=== PATIENT | male | born 1945 | race Caucasian/White ===

== ENCOUNTER 2023-10-23 09:00 | Outpatient (REF) | payer MEDICARE, BC, SELFPAY ==
--- OUTSIDE RECORDS SUMMARY | 2023-10-23 09:03 | XMS_ITS | Continuity of Care Document ---
Author Organization [facility] Address [address] [place] [address] Care Team Providers Care Fire Extinguisher Repairer Inspector Name Role Phone Hernesto Nascimento Primary Care Physician Encounter [facility] Date(s): 08/02/22 - 08/02/[address] [address] Discharge Disposition: Home or Self Care Attending Physician: Hernesto Nascimento MD Admitting Physician: Hernesto Nascimento MD Referring Physician: Hernesto Nascimento MD Allergies, Adverse Reactions, Alerts Substance Reaction Severity Status amoxicillin Unknown Active simvastatin Muscle pain Unknown Active atorvastatin Muscle pain Unknown Active cephalosporins Skin rash Severe Active HMG-CoA reductase inhibitors Muscle pain Unknown Active statins Muscle pain Unknown Active Assessment and Plan Future Appointments Immunizations Given and Recorded Vaccine Date Status Refusal Reason SARS-CoV-2 (COVID-19) mRNA-1273 vaccine 01/26/21 R ecorded SARS-CoV-2 (COVID-19) mRNA-1273 vaccine 07/09/20 R ecorded SARS-CoV-2 (COVID-19) mRNA-1273 vaccine 06/12/20 R ecorded influenza virus vaccine, live 01/15/21 Recorded influenza, unspecified formulation 01/16/20 Record ed influenza, unspecified formulation 01/19/18 Record ed influenza, unspecified formulation 01/19/15 Record ed pneumococcal 23-polyvalent vaccine 1 07/23/18 Cristopher rded influenza virus vaccine, inactivated 01/11/16 Cristopher rded influenza virus vaccine, inactivated 02/01/14 Cristopher rded influenza virus vaccine, inactivated 02/02/12 Cristopher rded influenza virus vaccine, inactivated 01/18/11 Cristopher rded influenza virus vaccine, inactivated 03/19/09 Cristopher rded influenza virus vaccine, inactivated 01/07/08 Cristopher rded influenza virus vaccine, inactivated 03/07/06 Cristopher rded influenza virus vaccine, inactivated 03/07/05 Cristopher rded pneumococcal 13-valent conjugate vaccine 01/19/15 Recorded tetanus/diphth/pertuss (Tdap) adult/adol 07/28/09 Recorded 1Result Comment: pt tolerated well. Educational information provided Medications acetaminophen 500 mg oral tablet 0 Refill(s) Start Date: 05/18/22 Status: Ordered aspirin 81 mg oral capsule 0 Refill(s) Start Date: 05/24/22 Status: Ordered carvedilol 12.5 mg oral tablet 12.5 mg = 1 tab, Oral, BID, # 180 tab, 3 Refill(s), Pharmacy: [id number] Start Date: 05/30/22 Status: Ordered Coenzyme Q10 0 Refill(s) Start Date: 05/24/22 Status: Ordered ezetimibe 10 mg oral tablet 10 mg = 1 tab, Oral, Daily, # 90 tab, 3 Refill(s), Pharmacy: [id number] Start Date: 05/30/22 Status: Ordered Golo Release Dietary Supplement Golo Release Dietary Supplement, 0 Refill(s) Start Date: 05/24/22 Status: Ordered Nitrostat 0.4 mg sublingual tablet 0 Refill(s) Start Date: 05/18/22 Status: Ordered Problem List Condition Confirmation Course Effective Dates Status H ealth Status Informant Aortic valve sclerosis Confirmed 12/02/19 Active Atherosclerosis of coronary artery without angina pectoris Confirmed Active Conductive hearing loss Confirmed Active Essential tremor Confirmed Active History of malignant melanoma of the skin Confirmed 05/18/20 Active History of total hip arthroplasty Confirmed Active Hyperlipidemia Confirmed Active Hypertensive disorder Confirmed Active Knee joint prosthesis present Confirmed Active Mixed hyperlipidemia Confirmed Active Primary impotence Confirmed Active Systolic murmur Confirmed 05/18/20 Active Procedures Procedure Date Related Diagnosis Body Site Status Colonoscopy, flexible; with biopsy, single or multiple 01/12/21 Completed Repair of quadriceps tendon (procedure) 04/08/20 Completed Arthroplasty, knee, tibial plateau; 09/21/16 Completed Open treatment of spontaneou s hip dislocation (developmental, including congenital or pathological), replacement of femoral head in acetabulum (including tenotomy, etc); 04/03/16 Completed Balloon angioplasty, intracr anial (eg, atherosclerotic stenosis), percutaneous 07/10/15 Completed Results Laboratory List Name Date Automated Diff 08/02/22 CBC w/ Diff 08/02/22 Comprehensive Metabolic Panel (CMP) Lipid Panel 08/02/22 Most recent to oldest [Reference Range]: 1 WBC [5.0-10.0 x10^3/mcL] 5.2 x10^3/mcL (08/02/22 8:15 AM) RBC [4.6-6.0 x10^6/mcL] 4.6 x10^6/mcL (08/02/22 8:15 AM) Neutro Auto [40.0-75.0 %] 56.3 % (08/02/22 8:15 AM) Lymph Auto [20.0-50.0 %] 29.3 % (08/02/22 8:15 AM) Parmer Auto [2.0-15.0 %] 9.7 % (08/02/22 8:15 AM) Basophil Auto [0.0-1.0 %] 1.2 % *HI* (08/02/22 8:15 AM) BUN [7-18 mg/dL] 20 mg/dL *HI* (08/02/22 8:15 AM) Cholesterol Total [50-200 mg/dL] 223 mg/ dL *HI* (08/02/22 8:15 AM) LDL [0-130 mg/dL] 145 mg/dL *HI* (08/02/22 8:15 AM) Glucose Level [74-106 mg/dL] 108 mg/dL *HI* (08/02/22 8:15 AM) Potassium Level [3.5-5.1 mmol/L] 4.7 mmo l/L (08/02/22 8:15 AM) MCV [80.0-96.0 fL] 97.4 fL *HI* (08/02/22 8:15 AM) HDL [40-60 mg/dL] 54 mg/dL (08/02/22 8:15 AM) AST [15-37 unit/L] 18 unit/L (08/02/22 8:15 AM) ALT [16-63 unit/L] 28 unit/L (08/02/22 8:15 AM) MCHC [31.0-35.0 g/dL] 32.9 g/dL (08/02/22 8:15 AM) Sodium Level [136-145 mmol/L] 136 mmol/L (08/02/22 8:15 AM) Hct [41.0-51.0 %] 44.7 % (08/02/22 8:15 AM) Triglycerides [0-150 mg/dL] 120 mg/dL (08/02/22 8:15 AM) Calcium Level [8.5-10.1 mg/dL] 8.5 mg/dL (08/02/22 8:15 AM) Albumin Level [3.4-5.0 g/dL] 3.7 g/dL (08/02/22 8:15 AM) Protein Total [6.4-8.2 g/dL] 7.3 g/dL (08/02/22 8:15 AM) MCH [26.0-32.0 pg] 32.0 pg (08/02/22 8:15 AM) Neutro Absolute 2.9 x10^3/mcL *NA* (08/02/22 8:15 AM) Bilirubin Total [0.2-1.0 mg/dL] 0.5 mg/d L (08/02/22 8:15 AM) Hgb [14.0-18.0 g/dL] 14.7 g/dL (08/02/22 8:15 AM) Alk Phos [46-146 unit/L] 57 unit/L (08/02/22 8:15 AM) Platelets [130-450 x10^3/mcL] 228 x10^3/ mcL (08/02/22 8:15 AM) CO2 [21-32 mmol/L] 30 mmol/L (08/02/22 8:15 AM) eGFR Non-AA [>=60] 58 *LOW* (08/02/22 8:15 AM) eGFR AA [>=60] 58 *LOW* (08/02/22 8:15 AM) Chloride Level [98-107 mmol/L] 101 mmol/ L (08/02/22 8:15 AM) RDW-CV [11.5-17.0 %] 13.2 % (08/02/22 8:15 AM) Imm Gran Auto [0.0-0.9 %] 0.2 % (08/02/22 8:15 AM) Creatinine Level [0.70-1.30 mg/dL] 1.29 mg/dL (08/02/22 8:15 AM) Eos, Auto [1.0-6.0 %] 3.3 % (08/02/22 8:15 AM) Social History Social History Type Response Tobacco Former tobacco user Tobacco Use:. 1, 2 Sex Male 1started age 15 2quit 2000 Patient Care team information Care Team Personnel Name: Hernesto Nascimento MD Position: Physician Member Role: Primary Care Physician Address: Address: [address] [place] [id number] Care Team Related Persons Name: SANFORD LEO Address: Home [address] [place] [address] Address: Mailing [address] [place], [place] [id number] Name: BALBINA LEO Address: Home [address] [address] Name: BALBINA LEO Address: Home [address] [address] Name: BALTAZAR INGRAM Address: Home [address], [place] [id number] Name: BALTAZAR INGRAM Address: Home [address], [place] [id number]
--- OUTSIDE RECORDS SUMMARY | 2023-10-23 09:03 | XMS_ITS | Referral Summary ---
Author Organization [facility] Address [address] [place] [address] Care Team Providers Care Price Accuracy Supervisor Name Role Phone Unknown, Provider Primary Care Provider Social History Tobacco Use Types Packs/Day Years Used Date Smoking Tobacco: Never Assessed Sex and Gender Information Value Date Recorded Sex Assigned at Not on file Gender Identity Not on file Sexual Orientation Not on file Plan of Treatment Not on file Care Teams Price Accuracy Supervisor Relationship Specialty Start Date End Date Unknown, Provider, PCP - General 01/01/21
--- OUTSIDE RECORDS SUMMARY | 2023-10-23 09:03 | XMS_ITS | Encounter Summary ---
[place] [address] Care Team Providers Care Wafer Slicer Name Role Phone Phoenix Guzmán Primary Care Provider [phone] Reason for Visit * Reason Comments Skin Check Encounter Details Date Type Department Care Team (Late st Contact Info) Description 07/19/2022 9:30 AM EDT Office Visit Dermatology at [facility] [address] [place] [address] Dawson Bolton MD [facility] [address] [facility] [place] [address] History of melanoma; History of dysplastic nevus; Seborrheic keratosis; Seborrheic keratosis, inflamed Social History Tobacco Use Types Packs/Day Years Used Date Smoking Tobacco: Former Cigarettes Q uit: 01/11/2001 Smokeless Tobacco: Never Alcohol Use Standard Drinks/Week Comments Yes 5 (1 standard drink = 0.6 oz pur e alcohol) Sex and Gender Information Value Date Recorded Sex Assigned at Not on file Gender Identity Not on file Sexual Orientation Not on file documented as of this encounter Progress Notes * Sandra Morin, CCMA - 07/19/2022 9:30 AM EDT Images from the original note were not included. DEPARTMENT OF DERMATOLOGY Medical D[facility]at[facility] Provider: DAWSON BOLTON MD Patient's preferred name Artemio Maher Preferred contact method for results []??myDH []??Letter []??Phone: home Detailed phone message OK? yes Are there any other people with whom we may discuss your care? - Sussy ?? PAST MEDICAL HISTORY If no, type N. 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 eczema, psoriasis, birthmarks, immunosuppression) ?? FAMILY HISTORY If yes, details Melanoma no NMSC no Other relevant family history no SOCIAL HISTORY Occupation: retired Hobbies: Other: ?? PRE-PROCEDURE SCREENING If no, type N. If yes, include details below Allergy to lidocaine, epinephrine, Dermabond, chlorhexidine, or adhesives: no Bleeding disorder or blood thinners: ASA 81 Pacemaker, defibrillator, deep brain stimulator, cochlear implant: no ?? History of Present Illness: Gunnar Morin is a 77 y.o. Patient returns to clinic today for a fullskin exam, the patient states the following concerns: - Right upper back, present for 3-4 months, asymptomatic - Itchy lesion on the left flank - no melanoma or melanoma in-situ remaining on the penis, Wood lamp examination today, very happy. Last visit at Dermatology: 01/25/2022 Last visit with this provider: 01/25/2022 Medications: Reviewed in eD-H Allergies: Reviewed in eD-H Skin Examination: Full skin examination: Patient asked to undress to their comfort level. Verbalized that the provider's preference is that patient remove all clothing and that the provider will not examine areas patient elects to keep covered. Examination of the scalp, hair, head, face, ears, neck, chest, axillae, abdomen, back, buttocks, and upper and lower extremities, and genitals was normal with the exceptionof the findings below. Assessment/Plan #.??History of 1.76mm melanoma located on the distal right shaft of penis s/p excision (12/2016) andimiquimod immunotherapy x 12 weeks - Hampton lamp negative - No signs of recurrence - No inguinal lymphadenopathy noted - Continue clinical monitoring ?? #. History of mildly dysplastic nevus s/p shave removal 07/25/2017??- well healed scar on chest - NER - Continue clinical monitoring?? #. Seborrheic Keratoses - Multiple 0.4-1 cm, brown-black papules/plaques with waxy stuck on appearance - Benign. No treatment necessary. - Reassured about benign nature and natural history. #. Irritated Seborrheic Keratosis - Verrucous stuck on papule with surrounding erythema on the leftflank - Benign, but symptomatic. Procedure Note: Procedure: Destruction of lesion(s) with cryotherapy. Number: 1 Location: as above Discussed procedure and expectations including risks (including risk of hypopigmentation) and benefits. Verbal consent obtained. Frozen with LN2, 15-30 second thaw time, TWICE. There were no complications; the patient tolerated the procedure well. Post-procedure expectations and wound care were reviewed. RTC: 1 yr for FSE []Note routed to clerical secretary []Recall placed in scheduling system [x]Appointment scheduled at checkout Scribe attestation: Humaira Spivey LPN has performed the documentation for this encounter in thepresence of and acting as a scribe for DAWSON BOLTON MD. I performed the above scribed service and agree with the accuracy of the documentation in this encounter. Reviewed and signed by: DAWSON BOLTON MD Dermatology [facility] documented in this encounter Plan of Treatment Upcoming Encounters Date Type Department Care Team (Late st Contact Info) Description 10/31/2023 9:15 AM EDT Office Visit Dermatology at [facility] [address] [place] [address] Dawson Bolton MD [facility] [address] [facility]KE [place] [address] 07/23/2024 9:30 AM EDT Office Visit Dermatology at [facility] [address] [place] [id number] Dawson Bolton MD [facility] [address] [facility] [place] [address] documented as of this encounter Visit Diagnoses Diagnosis History of melanoma Personal history of malignant melanoma of skin History of dysplastic nevus Personal history of diseases of skin and subcutaneous tissue Seborrheic keratosis Other seborrheic keratosis Seborrheic keratosis, inflamed Inflamed seborrheic keratosis documented in this encounter Care Teams Wafer Slicer Relationship Specialty Start Date End Date Phoenix Guzmán DO [address] [place] [address] [place] [address] PCP - General General Internal Medicine 02/20/15 documented as of this encounter
--- OUTSIDE RECORDS SUMMARY | 2023-10-23 09:03 | XMS_ITS | Encounter Summary ---
Author Organization [facility] Address [address] [place] [address] Care Team Providers Care Refractory Tile Helper Name Role Phone Unknown, Provider Primary Care Provider Encounter Details Date Type Department Care Team (Late st Contact Info) Description 01/12/2021 Lab Requisition [facility] Pathology & Laboratory Medicine - [facility] [address] [place], [place] [id number] Leroy Lozoya MD [address] [place] [address] [address] [place] [id number] Encounter for other general examination Social History Tobacco Use Types Packs/Day Years Used Date Smoking Tobacco: Never Assessed Sex and Gender Information Value Date Recorded Sex Assigned at Not on file Gender Identity Not on file Sexual Orientation Not on file documented as of this encounter Plan of Treatment Not on file documented as of this encounter Procedures Procedure Name Priority Date/Time Associated Diagnosis Comments SURGICAL PATHOLOGY Today 01/12/2021 9:25 EDT documented in this encounter Results * SURGICAL PATHOLOGY (01/12/2021 9:25 EDT) Note to Patient The following pathology results have been interpreted by your pathologist and may be available to you before your health provider has had the opportunity to review them. Please allow time for your provider to receive these results and explore management options, if applicable. 01/14/2021 11:52 EDT [facility] Final Diagnosis A. COLON, CECUM, POLYPS, BIOPSY: - Tubular adenoma. B. COLON, ASCENDING, POLYP, BIOPSY: - Tubular adenoma. C. COLON, TRANSVERSE, POLYP, BIOPSY: - Colonic mucosa with no significant diagnostic abnormalities. - No definite polyp identified. D. COLON, DESCENDING, POLYP, BIOPSY: - Tubular adenoma. 01/14/2021 11:52 [facility] Attestation By the signature below, the attending physician certifies that they have 1) personally conducted a gross and/or microscopic examination of the described specimen(s), and/or personally interpreted the results of laboratory testing of the described specimen(s), and 2) personally rendered or confirmed the above diagnosis. 01/14/2021 11:52 [facility] at 1152 Clinical History History of colon polyps; colon polyps, diverticulosis 01/14/2021 11:52 [facility] Gross Description A. Received in formalin labelled with proper patient identification (initials F, D) and cecal polyps are 2 myles-brown tissues (0.3 x 0.1 x 0.1 cm and 0.5 x 0.1 x 0.1 cm). The specimen is submitted entirely in A1. B. Received in formalin labelled with proper patient identification (initials F, D) and ascending colon polyp is a single myles-brown tissue (0.2 x 0.1 x 0.1 cm). The specimen is submitted intact in B1. C. Received in formalin labelled with proper patient identification (initials F, D) and transverse colon polyp sessile myles-brown polypoid tissue (0.4 x 0.3 x 0.1 cm). Submitted intact in C1. D. Received in formalin labelled with proper patient identification (initials F, D) and descending colon polyp is a single myles-brown polypoid tissue (0.3 x 0.2 x 0.2 cm). Submitted intact in D1. JACEK FAUSTIN(ASCP) 01/13/2021 8:44 01/14/2021 11:52 [facility] Performing Lab [facility] 01/14/2021 11:52 [facility] Scanned Images 01/14/2021 11:52 [facility] Tissue POLYP OF COLON / Unknown 01/12/2021 9:25 EDT 01/13/2021 7:27 EDT Tissue specimen (specimen) POLYP OF COLON / Unknown 01/12/2021 9:25 EDT 01/13/2021 7:27 EDT Tissue specimen (specimen) POLYP OF COLON / Unknown 01/12/2021 9:25 EDT 01/13/2021 7:27 EDT Tissue specimen (specimen) POLYP OF COLON / Unknown 01/12/2021 9:25 EDT 01/13/2021 7:27 EDT Leroy Lozoya MD PATHOLOGY ORDER ADRI[facility] [address] [place] [address] documented in this encounter Visit Diagnoses Diagnosis Encounter for other general examination documented in this encounter Care Teams Refractory Tile Helper Relationship Specialty Start Date End Date Unknown, Provider, PCP - General 01/01/21 documented as of this encounter
--- OUTSIDE RECORDS SUMMARY | 2023-10-23 09:03 | XMS_ITS | Clinical Summary ---
Author Organization [facility] [place] [address] Care Team Providers Care Cargo Broker Name Role Phone Phoenix Guzmán Primary Care Provider [phone] Allergies Active Allergy Reactions Criticality Noted Date Comments Amoxicillin Trihydrate Hives Medications Medication Sig Dispensed Refills Start Date End Date Status clindamycin (CLEOCIN) 150 mg Capsule See Admin Instructions. Reported on 07/28/2016 04/13/2015 Active nitroGLYcerin (NITROSTAT) 0.4 mg Tablet, Sublingual Place 1 tablet under the tongue every 5 minutes as needed for Chest pain. 90 tablet 12 07/11/2015 Active Additional Information Patient not taking.Reported on 02/20/2020 carvedilol (COREG) 12.5 mg Tablet Take 12.5 mg by mouth 2 times daily (with meals). 4 05/31/2016 Active hydrocortisone 2.5 % Cream Apply topically to the affected areas on the face once daily as needed. 30 g 07/27/2017 Active tacrolimus (PROTOPIC) 0.03 % Ointment Apply nightly to affected areas on face 30 g 07/19/2018 Active Additional Information Patient not taking.Reported on 12/01/2020 ezetimibe (Zetia) 10 mg Tablet 07/11/2019 Active oxyCODONE (Roxicodone) 5 mg Tablet Take 1-2 tablets by mouth every 4 hours as needed for Pain (acute post-op surgical pain). 20 tablet 12/12/2019 Active Additional Information Patient not taking.Reported on 02/20/2020 acetaminophen (Tylenol) 500 mg Tablet Take 2 tablets by mouth every 8 hours. Continue the Tylenol around the clock for 10 days after surgery, (12/21/2019). Then may take if needed per package insert. Do not take more than 3,000 mg of Tylenol in 24 hours. 12/12/2019 Active aspirin EC 81 mg Tablet, Delayed Release (E.C.) Take 1 tablet by mouth 2 times daily. Take with food for 30 days after surgery. Last day = 01/10/2020. 12/12/2019 Active gabapentin (Neurontin) 300 mg Capsule Take 1 capsule by mouth nightly. Take nightly before bed for sleep for 4 weeks after surgery. 30 capsule 12/12/2019 Active Additional Information Patient not taking.Reported on 02/20/2020 naproxen (NAPROSYN) 500 mg Tablet Take 1 tablet by mouth 2 times daily (with meals). Take with food for up to 6 weeks after surgery. 84 tablet 12/12/2019 Active Additional Information Patient not taking.Reported on 06/02/2020 polyethylene glycoL (Miralax) 17 gram Powder in Packet Take 17 g by mouth 2 times daily. 12/12/2019 Active Additional Information Patient not taking.Reported on 02/20/2020 senna-docusate (Pericolace) 8.6-50 mg Tablet Take 2 tablets by mouth 2 times daily. 12/12/2019 Active Additional Information Patient not taking.Reported on 02/20/2020 omeprazole (PriLOSEC) 20 mg Capsule, Delayed Release(E.C.) Take 1 capsule by mouth daily. Take daily while taking naproxen 42 capsule 12/12/2019 Active Additional Information Patient not taking.Reported on 06/02/2020 tacrolimus (Protopic) 0.1 % OintmentIndication s:History of melanoma,Dermatiti s Apply topically to affected areas 1-2 times a day as needed. 30 g 3 01/25/2022 Active clobetasoL (Temovate) 0.05 % CreamIndications:D ermatitis Apply topically to areas of scale and itch neck down twice daily for up to two weeks and take 1 week off, repeat as needed 30 g 01/25/2022 Active Active Problems Problem Noted Date Diagnosed Date S/P L quad tendon/extensor m echanism repair 04/08/20 Dr. 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 09/07/2015 S/P Left total knee arthroplasty (Dr. Rae), ? loose tibial component 09/08/2015 DJD (degenerative joint disease) of knee 016 CAD (coronary artery disease) 07/10/2015 Arthritis of knee 06/21/2015 s/p revision R ELZBIETA with head -liner exchange 06/29/16 (Dr. Rae) with dislocation(12/2016) 05/07/2015 Osteoarthritis of both knees 05/07/2015 Bilateral knee pain 05/07/2015 Resolved Problems Problem Noted Date Diagnosed Date Resolved Date s/p revision to dual-mobilit y R ELZBIETA for recurrent instability 12/01/17 (Dr. Hanna) 11/06/2017 01/01/2018 Anticoagulation management encounter 06/30/2016 07/30/2016 Family History Medical History Relation Comments Cancer Mother Relation Status Comments Father Mother Social History Tobacco Use Types Packs/Day Years Used Date Smoking Tobacco: Former Cigarettes Q uit: 01/11/2001 Smokeless Tobacco: Never Alcohol Use Standard Drinks/Week Comments Yes 5 (1 standard drink = 0.6 oz pur e alcohol) Sex and Gender Information Value Date Recorded Sex Assigned at Not on file Gender Identity Not on file Sexual Orientation Not on file Last Filed Vital Signs Vital Sign Reading Time Taken Comments Blood Pressure 139/83 06/02/2020 10:15 AM EST Pulse 92 06/02/2020 10:15 AM EST Temperature 36.7 ??C (98.1 ??F) 04/08/2020 8:53 AM ES T Respiratory Rate 12 04/08/2020 9:45 AM EST Oxygen Saturation 94% 04/08/2020 9:45 AM EST Inhaled Oxygen Concentration - - Weight 131.1 kg (289 lb) 06/02/2020 10:15 AM EST reportedc Height 182.9 cm (6' 0.01) 06/02/2020 10:[address] reported Body Mass Index 39.18 06/02/2020 10:15 AM EST Plan of Treatment Upcoming Encounters Date Type Department Care Team (Late st Contact Info) Description 10/31/2023 9:15 AM EDT Office Visit Dermatology at [facility] [address] [place] [address] Dawson Broderick MD [facility] [place] [address] 07/23/2024 9:30 AM EDT Office Visit Dermatology at [facility] [address] [place] [address] Dawson Broderick MD [facility] [place] [address] Health Maintenance Due Date Last Done Comments Hepatitis C Screening 1963 Tdap adult 1966 Tetanus vaccine 1966 Zoster vaccine (1 of 2) 1997 Pneumoccocal Vaccine: 65+ (1 of 1 - PCV) 2012 Covid-19 Vaccine (4 - 2022-2 4 season) 2022 01/26/2021, 07/09/2020, 06/12/2020 Influenza (Flu) vaccine (1 o f 1 - Influenza standard series) 12/03/2023 Lipid Screening Discontinued 07/11/2015 Medical Devices Implanted Type Area Boat Driver Device Identifier Shelf Expiration Date Model / Serial / Lot Cement,Bne,Smar tset,Ghv,40g ([id number]) - [id number] Implanted:Qty: 2 on 09/07/2015 by Walter Rae MD at [facility] IMPLANTS Left: Knee DO NOT USE Depuy Heel Builder - 3527 05/31/2017 5450-35-500 / / [id number] [place],Attune,Fe m,Cr,Sz9,Lt ([id number]) (Autoreq) - [id number] Implanted:Qty: 1 on 09/07/2015 by Walter Rae MD at [facility] IMPLANTS Left: Knee DO NOT USE Depuy Heel Builder - 3527 01/31/2025 1504-00-109 / / [id number] Osorio Peres Md l,Dome,41mm ([id number]) (Autoreq) - [id number] Implanted:Qty: 1 on 09/07/2015 by Walter Rae MD at [facility] IMPLANTS Left: Knee DO NOT USE Depuy Heel Builder - 3527 05/03/2020 1518-20-041 / / [id number] Inser,Mercyune,Cr ,Fb,Sz9,5mm (0474944) (Autoreq) - [id number] Implanted:Qty: 1 on 09/07/2015 by Walter Rae MD at [facility] IMPLANTS Left: Knee DO NOT USE Depuy Heel Builder - 3527 06/01/2019 1516-20-905 / / [id number] Tray,Osorio,Fb, Tib,Bse,Sz7 ([id number]) (Autoreq) - [id number] Implanted:Qty: 1 on 09/07/2015 by Walter Rae MD at [facility] IMPLANTS Left: Knee DO NOT USE Depuy Heel Builder - 3527 07/31/2025 1506-00-007 / / [id number] Head,Srm,Mtl,+0 mm,36mm ([id number]) (Autoreq) - [id number] Implanted:Qty: 1 on 06/29/2016 by Walter Rae MD at [facility] IMPLANTS Right: Hip DO NOT USE Depuy Heel Builder - 3527 02/01/2020 1365-31-000 / / [id number] Bone,Crushed,Ca ncellous,10cc ([id number]) - [id number] Implanted:Qty: 1 on 06/29/2016 by Walter Rae MD at [facility] IMPLANTS Right: Hip [facility] - [id number] 04/25/2021 PCAN10 / / [id number] Graft,Ostb,Opm, Putty,10ml (6392763) - [id number] Implanted:Qty: 1 on 06/29/2016 by Walter Rae MD at [facility] IMPLANTS Right: Hip [facility] - [id number] 12/16/2018 TPUT10 / / [id number] Ring,Duraloc,Dy namic,Hip,58mm (0116971) (Autoreq) - [id number] Implanted:Qty: 1 on 06/29/2016 by Walter Rae MD at [facility] IMPLANTS Right: Hip DO NOT USE Depuy Heel Builder - 3527 05/31/2025 1249-58-000 / / [id number] Liner,Dura,Mrth ,+4,10d,31i32yz (1139908) - [id number] Implanted:Qty: 1 on 06/29/2016 by Walter Rae MD at [facility] IMPLANTS Right: Hip DO NOT USE Depuy Heel Builder - 3527 01/01/2020 1220-36-558 / / [id number] Cement,Bne,Smar tset,Ghv,40g (1803010) - [id number] Implanted:Qty: 2 on 09/21/2016 by Walter Rae MD at [facility] IMPLANTS Right: Knee DO NOT USE Depuy Heel Builder - 3527 04/02/2018 5450-35-500 / / [id number] Osorio Peres Md l,Dome,41mm (0486277) (Autoreq) - [id number] Implanted:Qty: 1 on 09/21/2016 by Walter Rae MD at [facility] IMPLANTS Right: Knee DO NOT USE Depuy Heel Builder - 3527 07/01/2021 1518-20-041 / / [id number] Osorio Berry,Fb, Tib,Bse,Sz7 (2637579) (Autoreq) - [id number] Implanted:Qty: 1 on 09/21/2016 by Walter Rae MD at [facility] IMPLANTS Right: Knee DO NOT USE Depuy Heel Builder - 3527 07/01/2026 1506-00-007 / / [id number] Inser,Attune,Cr ,Fb,Sz9,5mm (8179710) (Autoreq) - [id number] Implanted:Qty: 1 on 09/21/2016 by Walter Rae MD at [facility] IMPLANTS Right: Knee DO NOT USE Depuy Heel Builder - 3527 03/02/2021 1516-20-905 / / [id number] [place],Attune,Fe m,Cr,Sz9,Rt (1635591) (Autoreq) - [id number] Implanted:Qty: 1 on 09/21/2016 by Walter Rae MD at [facility] IMPLANTS Right: Knee DO NOT USE Depuy Heel Builder - 3527 04/02/2026 1504-00-209 / / [id number] Screw,Trilogy,H ip,6.5x40mm (3900741) - [id number] Implanted:Qty: 1 on 12/01/2017 by Italo Hanna MD at [facility] IMPLANTS Right: Hip [employer]AN [employer] - JUAN BIO 09/01/2027-625-065 -40 / / [id number] Screw,Trilogy,H ip,6.5x40mm (1446191) - [id number] Implanted:Qty: 1 on 12/01/2017 by Italo Hanna MD at [facility] IMPLANTS Right: Hip [employer] - [employer]IO 09/01/2027-6249-065 -40 / / [id number] Screw,Trilogy,H ip,6.5x20mm (2020993) - [id number] Implanted:Qty: 1 on 12/01/2017 by Italo Hanna MD at [facility] IMPLANTS Right: Hip [employer] - [employer]IO 08/01/2027-6250-065 -20 / / [id number] Bone,Crushed,Ca ncellous,30cc (1049708) (Autoreq) - [id number] Implanted:Qty: 1 on 12/01/2017 by Italo Hanna MD at [facility] IMPLANTS Right: Hip [facility] 09/12/2022 PCAN30 / / [id number] Screw,Trilogy,H ip,6.5x25mm (1789012) - [id number] Implanted:Qty: 1 on 12/01/2017 by Italo Hanna MD at [facility] IMPLANTS Right: Hip J[employer]AN [employer] - J[employer]AN BIO 09/01/2027 00-6250-065 -25 / / [id number] Screw,Acetb,G7, 6.5x45mm (8128965) - [id number] Implanted:Qty: 1 on 12/01/2017 by Italo Hanna MD at [facility] IMPLANTS Right: Hip J[employer]AN [employer] - JUAN BIO 03/03/2027 [id number] / / [id number] Head,Srm,Fem,Co cr,28mm+6 (2504320) (Autoreq) - [id number] Implanted:Qty: 1 on 12/01/2017 by Italo Hanna MD at [facility] IMPLANTS Right: Hip [facility] 10/31/2021 52-9 / / [id number] Active Articulation Hip System Dual Mobility Bearing E1 Antioxidant Infused Implanted:Qty: 1 on 12/01/2017 by Italo Hanna MD at [facility] IMPLANTS Right: Hip 10/08/2021 EP-[id number] / / [id number] G7 Acetabular System Dual Mobility Acetabular Liner Neutral Implanted:Qty: 1 on 12/01/2017 by Italo Hanna MD at [facility] IMPLANTS Right: Hip 06/16/2027 [id number] / / [id number] G7 [place] Acetabular Shell, Multi Hole, [place], Cementless Implanted:Qty: 1 on 12/01/2017 by Italo Hanna MD at [facility] IMPLANTS Right: Hip 01/24/2027 [id number] / / [id number] Cemen,Genta,Vis c,Med (0093079) (Autoreq) - [id number] Implanted:Qty: 1 on 12/11/2019 by Roverto Bliss MD at [facility] IMPLANTS Left: Knee [facility] [id number] 01/31/2021 5450-50-501 / / [id number] Stem,Atun,Pfit, Str,73n80aq (7597861) (Autoreq) - [id number] Implanted:Qty: 1 on 12/11/2019 by Roverto Bliss MD at [facility] IMPLANTS Left: Knee [facility] [id number] 01/31/2029 1513-16-060 / / [id number] Base,Atun,Rev,T ib,Niko,Sz7 (3148889) (Autoreq) - [id number] Implanted:Qty: 1 on 12/11/2019 by Roverto Bliss MD at [facility] IMPLANTS Left: Knee [facility] [id number] 09/01/2027 [id number] / / [id number] Sleev,Atun,Full -Por,M-L,45mm (6460351) (Autoreq) - [id number] Implanted:Qty: 1 on 12/11/2019 by Roverto Bliss MD at [facility] IMPLANTS Left: Knee [employer] - TALHA OSKAR [id number] 03/02/2028 [id number] / / [id number] Inser,Attune,Cr ,Rp,Sz9,14mm (0545208) (Autoreq) - [id number] Implanted:Qty: 1 on 12/11/2019 by Roverto Bliss MD at [facility] IMPLANTS Left: Knee [employer]HA [employer] - TALHA OSKAR [id number] 07/31/2024 1516-30-914 / / [id number] Procedures Procedure Name Priority Date/Time Associated Diagnosis Comments LIPID PANEL (REFLEX DIRECT LDL) Routine 07/11/2015 4:35 AM EDT from Last 3 Months or Most Recently Relevant to Health Maintenance Results * (ABNORMAL) Lipid panel (fasting) (07/11/2015 4:35 AM EDT) Chol, Total 200(H) <=199 mg/dL [facility] Comment: Recommendations of the NCEP Adult Treatment Panel for the following risk cutoff thresholds for the [place] population: Desirable: <200 mg/dL Borderline High: 200-239 mg/dL High: > or = 240 mg/dL Triglycerides 175(H) <=149 mg/dL [facility] Comment: Reference Range: Normal triglycerides: ??<150 mg/dL Borderline high: ??150-199 mg/dL High: ??200-499 mg/dL Very high: ??>on=222 mg/dL AISLINN 2001; 285(19):8139-6152 HDL 39(L) >=40 mg/dL [facility] Comment: Reference range: ??Low HDL: ?? < 40 mg/dL ??Normal: ?40-60 mg/dL ??Desirable: > 60 mg/dL AISLINN 2001; 285(19):4528-2622 LDL Cholesterol 126(H) <=99 mg/dL [facility] Comment: Reference range: ?? Optimal: ?<100 mg/dL ?? Near Optimal/Above Optimal: ?? 100-129 mg/dL ?? Borderline high: ?130-159 mg/dL ?? High: ? 160-189 mg/dL ?? Very high: ?>di=427 mg/dL AISLINN 2001: 285(19):7146-4230 Chol/HDL Ratio 5.1 ratio [facility] Comment: A Cholesterol to HDL ratio below 4:1 is desirable. ??Studies suggest that increased CAD risk occurs at ratios above 5 for females and above 6 for men. ? [place] Heart Association ??(http://www.americanheart.org) ? Rehana Int Med, 1994; 121:641 ? AM J Med, 1998; 105(1A):48S Blood specimen (specimen) 07/11/2015 4:35 AM EDT 07/11/2015 4:42 AM EDT Narrative Resulting Agency Comment Spec In Lab Avi Martinez MD CHEMISTRY ORDERABLES [facility] [place] [address] from Last 3 Months or Most Recently Relevant to Health Maintenance Advance Directives Documents on File Type Date Recorded Patient Television News Anchor Expl anation Personal Television News Anchor 12/23/2019 9:24 AM Sussy Morin Advance Directives and Living Will 11/09/2017 11:53 AM DNR/COLST 09/15/2017 Advance Directives and Living Will 06/25/2015 1:27 PM * Attempt Cardiopulmonary Resuscitation - Inpatient (Latest Code Status on File) Date Activated Date Inactivated Comments 04/08/2020 7:01 AM 04/08/2020 12:12 PM Question Answer Comments Code Status decision made by: Patient * Attempt Cardiopulmonary Resuscitation - Inpatient Date Activated Date Inactivated Comments 12/11/2019 4:57 PM 12/12/2019 4:48 PM Question Answer Comments Code Status decision made by: Patient * Full Code Date Activated Date Inactivated Comments 12/01/2017 2:07 PM 12/02/2017 6:13 PM Question Answer Comments Does patient have capacity to make decision: Yes * Full Code Date Activated Date Inactivated Comments 01/19/2017 3:00 PM 01/19/2017 7:49 PM Question Answer Comments Does patient have capacity to make decision: Yes * Full Code Date Activated Date Inactivated Comments 09/21/2016 12:33 PM 09/22/2016 6:06 PM Question Answer Comments Does patient have capacity to make decision: Yes Healthcare Agents on File Name Relationship Healthcare Agent Relationship Communication Sussy Morin Spouse Health Care Agent Flory Ralph Child First Alternate Health Care Agent Care Teams Cargo Broker Relationship Specialty Start Date End Date Phoenix Guzmán DO [address] [place] [address] [place] [address] PCP - General General Internal Medicine 02/20/15
--- OUTSIDE RECORDS SUMMARY | 2023-10-23 09:03 | XMS_ITS | Clinical Summary ---
Author Organization [facility] Address [address] [place] [address] Care Team Providers Care Table Games Manager Name Role Phone Unknown, Provider Primary Care Provider Social History Tobacco Use Types Packs/Day Years Used Date Smoking Tobacco: Never Assessed Sex and Gender Information Value Date Recorded Sex Assigned at Not on file Gender Identity Not on file Sexual Orientation Not on file Plan of Treatment Health Maintenance Due Date Last Done Comments Hepatitis C Screen 1945 RSV Immunization ( o r 60+ Years) (1 - 1-dose 60+ series) 2007 Fall Risk Screening 2012 COVID-19 Vaccine ( season) 2022 Care Teams Table Games Manager Relationship Specialty Start Date End Date Unknown, Provider, PCP - General 01/01/21
--- OUTSIDE RECORDS SUMMARY | 2023-10-23 09:03 | XMS_ITS | Continuity of Care Document ---
Author Organization [facility] Address [address] [place] [address] Care Team Providers Care Doors Prefitter Name Role Phone Hernesto Nascimento Primary Care Physician Encounter [facility] Date(s): 10/19/22 - 10/19/22 [facility] [address] [place] [address] Allergies, Adverse Reactions, Alerts Substance Reaction Severity [...] BID, # 180 tab, 3 Refill(s), Pharmacy: [id number] Start Date: 05/30/22 Status: Ordered Coenzyme Q10 0 Refill(s) Start Date: 05/24/22 Status: Ordered ezetimibe 10 mg oral tablet 10 mg = 1 tab, Oral, Daily, # 90 tab, 3 Refill(s), Pharmacy: [id number] Start Date: 05/30/22 Status: Ordered Golo [...] anial (eg, atherosclerotic stenosis), percutaneous 07/10/15 Completed Social History Social History Type Response Tobacco Former tobacco user Tobacco Use:. 1, 2 Sex Male 1started age 15 2quit 2000 Patient Care team information Care Team Personnel Name: Hernesto Nascimento MD Position: Physician Member Role: Primary Care Physician Address: Address: [address] [place] [address] Care Team Related Persons Name: SANFORD LEO Address: Home [address] [place] [address] Address: Mailing [address] [place] [phone] Name: BALBINA LEO Address: [address] [address] Name: BALBINA LEO Address: Home [address] [address] Name: BALTAZAR INGRAM Address: Home [address] [place], [place] [id number] Name: BALTAZAR INGRAM Address: Home [address] [place], [place] [id number]
--- OUTSIDE RECORDS SUMMARY | 2023-10-23 09:03 | XMS_ITS | Encounter Summary ---
Author Organization [facility] [place] [address] Care Team Providers Care Product Support Representative Name Role Phone Phoenix Guzmán DO Primary Care Provider [phone] Encounter Details Date Type Department Care Team (Latest Contact Info) Description 07/19/2022 Travel Social History Tobacco Use Types Packs/Day Years [...] as of this encounter Plan of Treatment Upcoming Encounters Date Type Department Care Team (Late st Contact Info) Description 10/31/2023 9:15 AM EDT Office Visit Dermatology at [facility] [address] [place] [address] Dawson Broderick MD [facility] [address] [place] [address] 07/23/2024 9:30 AM EDT Office Visit Dermatology at [facility] [address] [place] [address] Dawson Broderick MD [facility] [address] [place] [address] documented as of this encounter Visit Diagnoses Not on filedocumented in this encounter Care Teams Product Support Representative Relationship Specialty Start Date End Date Phoenix Guzmán DO [address] [place] [address] [place] [phone] PCP - General General Internal Medicine 02/20/15 documented as of this encounter
--- OUTSIDE RECORDS SUMMARY | 2023-10-23 09:03 | XMS_ITS | Data Portability ---
Author Organization [place] [facility], [facility] Address [address] [place] [address] Assessment Encounter Date Assessment Date Assessment LastModified by Organization Details LastModified Time 10/23/2023 10/23/2023 The total time devoted to today's encounter, including both the afkj-fq-qkmp time with the patient and/or family/caregi luh and ucr-cjbj-jg-f nilo time I personally spent is 30 minutes. [email or web address] Not available 10/23/2023 08:33:30 Plan of Treatment Reminders Order Date Submit Date Provider Last Modified By Organization Details Last Modified Time Details Appointments Annual Wellness Exam 40 2023 08:00A M SHERRELL CHUTE Not available Not available Not available Lab CMP, serum or plasma 2023 024 [facility] (Registration ), [address] [place] [address] [place], [address], 10/23/2023 08:35:21 lipid panel, serum 2023 024 [facility] (Registration ), [address] [place] [address] [place], [address], 10/23/2023 08:50:31 Referral None recorded. Procedures None recorded. Surgeries None recorded. Imaging None recorded. Medication Orders None recorded. Patient TargetsNo targets recorded. Patient Instructions Encounter Date Encounter Id Patient Instructions Last Modified By Organization Details Last Modified Time 10/23/2023 [id number] Check to see if you have had a tetanus booster at [place]. Continue current medications, good luck with a little bit of weight loss now that your ankle is better. COVID /Flu vaccine this fall I will wait for results of your colonoscopy Follow up yearly, ECHO for your murmur next year I will send you a letter with the results of your lab work mary Not available 10/23/2023 08:19:22 Reason for Referral None Reported. Results Created Date Observation Date Name Description Value Unit Range Abnormal Flag LastModifiedBy Organization Detail LastModifiedTime 09/29/19 24 09/29/2023 XR, ankle , 3 or more view EXAM: RIGHT ANKLE RIS EXAM DATE/T CHERYL: 2023 10:03 INDICA TION: Follow -up fractu re Examin ation compar ed with previo us study of 06 September 2023. Spiral fractu re distal fibula r shaft with slight displa cement again noted and unchan ged in alignm ent. Mild interv al callus format ion but fractu re line remain s readil y visibl e. No other fractu re or sublux ation noted. Ankle mortis e intact . No joint effusi on seen. Modera te latera l soft tissue swelli ng again seen. Promin ent Stieda proces s of the talus. Calcan eal spurs again noted. THIS IS AN ELECTR ONICAL LY VERIFI ED REPORT 024 3:51 PM: Lawrence [address] [place] [address] , [place], [address], 10/02/2023 07:45:29 Result Notes None recorded. Problems Name Status Onset Date Resolution Date Notes Provider Name and Address Organization Details Recorded Time Mixed hyperlipidemia Active 2022 Problem Code: E78.2; Problem Code Type: ICD-10; Not Available [facility] 3 05:34:46 Hyperlipidemia Active 202210/20/2022 - Comments only - Sherrell Herrera [employer] DES[employer] - Cholesterol greatly improved with significant weight loss. Gunnar has statin intolerance, feels terrible. Did discuss repatha as a possibility but as he continues to work on weight loss and diet changes will hold off for now. Problem Code: E78.5; Problem Code Type: ICD-10; Not Available [facility] 3 05:34:46 Erectile dysfunction Active 2022 Problem Code: N52.9; Problem Code Type: ICD-10; Not Available [facility] 3 05:34:46 Essential tremor Active 2022 Problem Code: G25.0; Problem Code Type: ICD-10; Not Available [facility] 3 05:34:46 Conductive hearing loss Active 2022 Problem Code: H90.2; Problem Code Type: ICD-10; Not Available [facility] 3 05:34:46 Essential hypertension Active 202210/20/2022 - Comments only - Sherrell Chute [employer]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 Follows with dermatology yearly and prn Problem Code: Z85.820; Problem Code Type: ICD-10; Not Available [facility] 3 05:34:47 Hip joint prosthesis present Active 2022 Problem Code: Z96.649; Problem Code Type: ICD-10; Not Available [facility] 3 05:34:47 Knee joint prosthesis present Active 2022 Problem Code: Z96.659; Problem Code Type: ICD-10; Not Available [facility] 3 05:34:47 Atherosclerosis of coronary artery without angina pectoris Active 2022 Problem Code: I25.10; Problem Code Type: ICD-10; Not Available [facility] 3 05:34:47 Obesity Active 202210/20/2022 - Comments only - Sherrell Herrera [employer]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 Has lost 32 pounds in the past 5 months taking a pill called GoLo Release which helps with insulin resistance. He can't tell me what is in the pill but will try to send the ingriedients to the portal. He is also working on eating a healthy diet, is active every day Problem Code: E66.9; Problem Code Type: ICD-10; Not Available [facility] 3 05:34:47 Aortic stenosis, non-rheumatic Active 2022 Problem Code: I35.0; Problem Code Type: ICD-10; Not Available [facility] 3 05:34:48 Ascending aorta dilatation Active 2023 SHERRELL HERRERA, [employer] [address], [place], [address] , [facility] 4 08:29:10 Problem Notes None recorded. Procedures Surgical History None recorded. Imaging Results Imaging Date Name Status LastModified by Organiz ation Details LastModified Time 09/29/2023 XR, ankle, 3 or more view completed [address], [place], [address], 10/02/2023 07:45:29 Procedure Notes None recorded. Medical Equipment None Reported. Allergies Allergen ID Allergen Name Allergen Category Reaction Reaction Severity Criticality Documentation Date Start Date Code Code System Note Provider Name and Address Organization Details Recorded Time 32990 amoxicill in trihydrat e medicatio n Not available Not available Not available 02/10/20232022 19113 8 RxNorm Aller gyCod e: '3081 82'; Aller gyNam e: 'AMOX ICILL IN'; Aller gyCon ceptT ype: 'RX Norm' ; Not Available [facility] 3 16:29:41 16651 Medicinal product containin g cephalosp santy and acting as antibacte rial agent (product) medicatio n rash severe Not available 02/10/20232022 09052 9009 SNOMED Not Available [facility] 3 16:29:41 Medications Name Sig Start Date Stop Date Status Note LastModified by Organization Details LastModified Time aspirin 81 mg capsule Take 1 capsule by mouth once a day 10/20 completed Not Available Not Available Not Available carvedilo l 12.5 mg tablet TAKE ONE TABLET BY MOUTH TWICE A DAY active Not Available Not Available No t Available clindamyc in HCl 300 mg capsule Take 2 tab by mouth 1 hour before dental cleaning 05/24 completed Dental prescrip tion Not Available Not Available Not Available acetamino phen 500 mg tablet Take 2 tablet by mouth every eight hours as needed active Not Available Not Available No t Available Nitrostat 0.4 mg sublingua l tablet ONE TABLET UNDER TONGUE NEEDED FOR CHEST PAIN EVERY 5 MINUTES MAX DOSE OF 3 TABLETS. CALL 911 AFTER FIRST DOSE 10/28 completed Not Available Not Available Not Available ezetimibe 10 mg tablet TAKE ONE TABLET BY MOUTH EVERY DAY active Not Available Not Available No t Available Vitals Date Recorded Body height Body mass index (BMI) Body weight Oxygen saturation Oxygen saturation in Arterial blood by Pulse oximetry Heart rate Systolic blood pressure Diastolic blood pressure Provider Name and Address Organization Details Last Updated DateTime 4 178.56 cm 39.5 kg/m2 509547. 52 g 95 % 95 % 80 /min 124 mm[Hg] 74 mm[Hg] ERINN COPELAND MA [facility] 4 07:56:08 Social History Question Answer Notes LastModified by Organizat ion Details LastModified Time Tobacco Smoking Status Former Smoker ERINN COPELAND MA null, [facility] 10/23/2023 07:54:07 When Did You Quit Smoking? 16+yearssi ncelastcig arette [email or web address] Information not available 10/23/2023 Would You Say That, In General, Your Health Is Very Good [email or web address] Information not available 10/23/2023 How Often Does Anyone, Including Family, Physically Hurt You? Never [email or web address] Information not available 10/23/2023 How Often Does Anyone, Including Family, Insult Or Talk Down To You? Never [email or web address] Information no t available 10/23/2023 How Often Does Anyone, Including Family, Threaten You With Harm? Never Information not available 10/23/2023 How Often Does Anyone, Including Family, Scream Or Curse At You? Never [email or web address] Information not available 10/23/2023 Within The Past 12 Months, You Worried That Your Food Would Run Out Before You Got Money To Buy More. Never True [email or web address] Information n ot available 10/23/2023 Within The Past 12 Months, The Food You Bought Just Didn't Last And You Didn't Have Money To Get More. Never True [email or web address] Information n ot available 10/23/2023 How Hard Is It For You To Pay For The Very Basics Like Food, Housing, Medical Care, And Heating? Would You Say It Is: Not Hard At All Information not available 10/23/2023 In The Past 12 Months, Has Lack Of Reliable Transportation Kept You From Medical Appointments, Meetings, Work Or From Getting Things Needed For Daily Living? No [email or web address] Information not available 10/23/2023 What Is Your Housing Situation Today? I Have Housing. [email or web address] Information not available 10/23/2023 How Often In The Past Year Have You Used Marijuana (including Smoking, Vaping, Dabbing, Or Edibles)? Never Information not available 10/23/2023 How Often In The Past Year Have You Used Prescription Medications That Were Not Prescribed To You? Never [email or web address] Information n ot available 10/23/2023 How Often In The Past Year Have You Taken Your Own Prescription Medication More Than The Way It Was Prescribed Or For Different Reasons Than Its Intended Purpose? Never [email or web address] Information no t available 10/23/2023 How Often In The Past Year Have You Used Other Drugs (for Example, Heroin, Cocaine, Meth, Salvia, Inhalants)? Never [email or web address] Information not available 10/23/2023 Have You Ever Used IV Drugs? No [email or web address] Information not available 10/23/2023 Date Of Most Recent SBINS 10/23/2023 [email or web address] Information not available 10/23/2023 What Was The Date Of Your Most Recent Tobacco Screening? 10/23/2023 [email or web address] Information not available 10/23/2023 At What Age Did You Start Smoking Tobacco? 15 [email or web address] Information not available 10/23/2023 How Much Tobacco Do You Smoke? 1 PPD [email or web address] Information not available 10/23/2023 Has Tobacco Cessation Counseling Been Provided? No [email or web address] Information not available 10/23/2023 How Many Years Have You Smoked Tobacco? 50 Pt Reports Smoking On And Off [email or web address] Information not available 10/23/2023 Sex: Male Functional Status None recorded. Mental Status None recorded. Family History Relationship Description Onset Age of this Age Resolved Age Notes Father Family history of acute medical disorder Alzheimers disea se Mother Family history of acute medical disorder tumor on spine Mother Family history of malignant neoplasm cancer growth on spine Medical History No medical history recorded. Immunizations Vaccine Type Date Status Provider Name and Address Organization Details Recorded Time Tdap 07/28/2009 completed Not Available [facility] 05:38:50 Pneumococcal Conjugate, unspecified formulation 01/19/2015 completed Not Available [facility] 02/10/2023 05:38:50 zoster, unspecified formulation 11/25/2019 completed Not Available [facility] 02/10/2023 05:38:50 zoster, unspecified formulation 01/27/2020 completed Not Available [facility] 02/10/2023 05:38:50 SARS-COV-2 (COVID-19) vaccine, UNSPECIFIED 06/12/2020 completed Not Available [facility] 02/10/2023 05:38:50 SARS-COV-2 (COVID-19) vaccine, UNSPECIFIED 07/09/2020 completed Not Available [facility] 02/10/2023 05:38:50 SARS-COV-2 (COVID-19) vaccine, UNSPECIFIED 01/17/2022 completed Not Available [facility] 02/10/2023 05:38:50 SARS-COV-2 (COVID-19) vaccine, UNSPECIFIED 03/12/2021 completed Not Available [facility] 02/10/2023 05:38:50 pneumococcal polysaccharide PPV23 07/23/2018 completed Not Available [facility] 2022 05:38:50 influenza, unspecified formulation 01/11/2022 completed Not Available [facility] 02/10/2023 05:38:51 influenza, unspecified formulation 01/13/2020 completed Not Available [facility] 02/10/2023 05:38:51 influenza, unspecified formulation 01/18/2021 completed Not Available [facility] 02/10/2023 05:38:51 Past Encounters Encounter ID Performer Location Encounter Start Date Encounter Closed Date Diagnosis/Indication Diagnosis SNOMED-CT Code [id number] KATHLEEN ARAGON [facility] [address] [place] [address] 10/23/2023 07:41:07 10/23/2023 08:33:47 Obesity 951255166 Heart murmur 51953920 Aortic valve disorder 87 26508 Essential hypertension 78228790 History of malignant melanoma of the skin 461669440810 Hyperlipidemia 06424140 Ascending aorta dilatation 712597114 Health Concerns Section Related Observation LastModified by Organization Detai ls LastModified Time None Recorded Concern Status LastModified by Organization Details LastModified Time None Recorded Advance Directives Directive None Recorded Payers Encounter Date Sequence Insurance Name Policy Number Policy Bruner Covered Member ID Bruner Member ID Guarantor Name 10/23/2023 1 [place]ICARE [place]: [employer] Gunnar Morin [id number] Gunnar Morin 10/23/2023 2 [place] [facility] [id number] Gunnar Morin [id number] Gunnar Morin Notes Date Note Type Note Provider Name and Address Organization Details Recorded Time 10/23/2023 text/html HPI Notes: cc fo llow up chronic issues. Murmur, Aortic stenosis, Hyperlipidemia, Melanoma, HTN, Dilated aorta at 4.2 cm Aortic stenosis - mildly dilated aorta- last echo 2022, he does not want to repeat this year. Tolerates strenuous activity such as splitting wood with an axe without difficulty. Non chest pain, sob. Walks Fractured right ankle - backed into a whole while mowing, wore a boot for 7 weeks. All improved. Has occasional swelling with increased activity Obesity - weight is stable, only gained two pounds despite being in a boot Hyperlipidemia - continues on Ezetimibe Hx of melanoma - follows with dermatology yearly Colonoscopy scheduled in January in [place] KATHLEEN ARAGON [address], [place], [address], [facility]. 10/23/2023 08:33:45
--- OUTSIDE RECORDS SUMMARY | 2023-10-23 09:03 | XMS_ITS | Continuity of Care Document ---
Author Organization [facility] Address [address] [place] [address] Care Team Providers Care Switchboard Wirer Name Role Phone Hernesto Nascimento Primary Care Physician Encounter NCTY_[place] Date(s): 12/01/22 - 12/01/22 [facility] [address] [place] [address] Discharge Disposition: Home or Self Care Attending Physician: Sherrell Mcdowell NP Admitting Physician: Sherrell Mcdowell NP Referring Physician: Sherrell Mcdowell RECORD PRESSMAN Allergies, Adverse Reactions, Alerts Substance Reaction Severity [...] BID, # 180 tab, 3 Refill(s), Pharmacy: [id number] Start Date: 05/30/22 Status: Ordered Coenzyme Q10 0 Refill(s) Start Date: 05/24/22 Status: Ordered ezetimibe 10 mg oral tablet 10 mg = 1 tab, Oral, Daily, # 90 tab, 3 Refill(s), Pharmacy: [id number] Start Date: 05/30/22 Status: Ordered Golo [...] Member Role: Primary Care Physician Address: Address: [address] [place] [id number] Care Team Related Persons Name: SANFORD LEO Address: Home [address] [place] [address] Address: Mailing [address] [place] [phone] Name: BALBINA LEO Address: Home [address] [address] Name: BALBINA LEO Address: Home [address] [address] Name: BALTAZAR INGRAM Address: Home [address] [facility] [id number] Name: BALTAZAR INGRAM Address: Home [address] [place], [place] [id number]
--- OUTSIDE RECORDS SUMMARY | 2023-10-23 09:03 | XMS_ITS | Continuity of Care Document ---
Author Organization [facility] Address [address] [place] [address] Care Team Providers Care Computer Technical Specialist Name Role Phone Sherrell Mcdowell Primary Care Physician Encounter NCTY_DE Date(s): 08/20/23 - 08/20/[address] [phone] Encounter Diagnosis Right fibular fracture(Discharge Diagnosis) - 08/20/23 Discharge Disposition: Home or Self Care Attending Physician: Edwin Zuluaga MD Admitting Physician: Edwin Zuluaga MD Allergies, Adverse Reactions, Alerts Substance Reaction Severity Status amoxicillin Unknown Active simvastatin Muscle pain Unknown Active atorvastatin Muscle pain Unknown Active cephalosporins Skin rash Severe Active HMG-CoA reductase inhibitors Muscle pain Unknown Active statins Muscle pain Unknown Active Assessment and Plan Extracted from: Title:ED Provider Note Author:Eladio Vallecillo MD Date:08/20/23 Assessment/Plan Right fibular fracture??S82.401A Ordered: ED Visit Follow Up [facility], Orders for future visit, 08/20/23 19:37:00 EDT, Right fibular fracture ?? Orders: Discharge Patient, 08/20/23 19:37:00 EDT, Home Independently, Constant Indicator Splint/Brace Application, Once, Walking Boot Non-Inflatable, Stop date 08/20/23 19:35:00 EDT Patient Education Tibial and Fibular Fractures Cast or Splint Care, Adult, [id number] Follow Up With When Contact Information Hira PETERSON, Lasha Obrien MD Within [address] [place] [address] [address] [place] [address] ?? Additional Instructions: Immunizations Given and Recorded Vaccine Date Status [...] BID, # 180 tab, 3 Refill(s), Pharmacy: [id number] Start Date: 05/30/22 Status: Ordered Coenzyme Q10 0 Refill(s) Start Date: 05/24/22 Status: Ordered ezetimibe 10 mg oral tablet 10 mg = 1 tab, Oral, Daily, # 90 tab, 3 Refill(s), Pharmacy: [id number] Start Date: 05/30/22 Status: Ordered Golo Release Dietary Supplement Golo Release Dietary Supplement, 0 Refill(s) Start Date: 05/24/22 Status: Ordered Nitrostat 0.4 mg sublingual tablet 0 Refill(s) Start Date: 05/18/22 Status: Ordered Mental Status 08/20/23 Eye Opening Response [place] Spontaneous ly Best Verbal Response Syed Oriented Best Motor Response Syed Obeys comman ds Syed Coma Score 15 Problem List Condition Confirmation Course Effective Dates [...] anial (eg, atherosclerotic stenosis), percutaneous 07/10/15 Completed Vital Signs Most recent to oldest [Reference Range]: 1 Temperature Temporal Artery [36-38 Deg C ] 36.7 Deg C (08/20/23 6:57 PM) Heart Rate Monitored [60-100 bpm] 88 bpm (08/20/23 6:57 PM) Respiratory Rate [12-24 br/min] 18 br/mi n (08/20/23 6:57 PM) Blood Pressure [90-140/60-90 mmHg] 141/6 5mmHg *HI* (08/20/23 6:57 PM) Mean Arterial Pressure, Cuff [65-140 mmH g] 90 mmHg (08/20/23 6:57 PM) Weight 129 kg (08/20/23 6:57 PM) Weight Dosing 129.000 kg (08/20/23 6:57 PM) Height 178 cm (08/20/23 6:57 PM) Body Mass Index 40.71 kg/m2 (08/20/23 6:57 PM) Social History Social History Type Response Tobacco Former tobacco user Tobacco Use:. Sex Male Hospital Discharge Instructions Patient Education 08/20/2023 18:39:40 Tibial and Fibular Fractures Tibial and Fibular Fractures Tibial and fibular fractures are breaks in both of the lower leg bones (tibia and fibula). The tibia, also called the jernigan bone, is the larger of these two bones. The fibula is the smaller of the twobones and is on the outer side of the leg. When tibiofibular fractures happen, the bones may: ??? Break, but stay close to their normal position (stable or nondisplaced fracture). ??? Break and move out of their normal position (unstable or displaced fracture). ??? Break into several small pieces (comminuted fracture). ??? Break through the skin (compound or open fracture). What are the causes? This condition is caused by injuries, such as: ??? Falls from significant heights or falls while cycling. ??? Sports contact injuries, like collisions in football or soccer. ??? Severe, forceful twisting of your leg, such as falls while skiing. ??? Car or motorcycle crashes. What increases the risk? You are more likely to develop this condition if: ??? You participate in sports, especially contact sports or sports that may involve impact or twisting, like football or skiing. ??? You smoke. What are the signs or symptoms? Symptoms of this condition include: ??? Pain, swelling, and bruising in the lower leg, ankle, or knee. ??? Difficulty walking or putting weight on your injured leg. ??? Change in the shape of your leg at the site of the injury. ??? Pain that gets worse with moving or standing and gets better with rest. How is this diagnosed? This condition is diagnosed with a physical exam and X-rays. In some cases, a CT scan may be done to help diagnose certain types of fractures. How is this treated? Treatment for this condition depends on the type and severity of your fractures. ??? If your bones did not move out of place and your leg is still stable, or if you are unable to have surgery, you may be treated with a cast, brace, or walking boot. This keeps the bones in place (immobile) while they heal. ??? If your bones are out of place or if your leg is unstable, you may need surgery. Surgery is common for tibial and fibular fractures. During surgery, the bones are moved back into their normal position, and a mandeep, plate, or screws are used to hold the bones in place. After surgery, the leg is put in a splint or cast. Treatment may also include: ??? Medicine, ice, and elevation of the leg to help relieve pain and inflammation. ??? Using crutches or a walker while you heal. ??? Exercises to strengthen leg and ankle muscles and restore motion (physical therapy). Follow these instructions at home: If you have a splint, brace, or walking boot: ??? Wear it as told by your health care provider. Remove it only as told by your health care provider. Some types of splints can only be removed by your health care provider. ??? Loosen it if your toes tingle, become numb, or turn cold and blue. ??? Keep it clean and dry. If you have a cast: ??? Do not stick anything inside the cast to scratch your skin. Doing that increases your risk of infection. ??? Check the skin around the cast every day. Tell your health care provider about any concerns. ??? You may put lotion on dry skin around the edges of the cast. Do not put lotion on the skin underneath the cast. ??? Keep it clean and dry. Bathing ??? Do not take baths, swim, or use a hot tub until your health care provider approves. Ask your health care provider if you may take showers. You may only be allowed to take sponge baths. ??? If the cast, splint, brace, or boot is not waterproof: ??? Do not let it get wet. ??? Cover it with a watertight covering when you take a bath or a shower. Managing pain, stiffness, and swelling ??? If directed, put ice on the injured area. To do this: ??? If you have a removable splint, brace, or boot, remove it as told by your health care provider. ??? Put ice in a plastic bag. ??? Place a towel between your skin and the bag or between your splint or cast and the bag. ??? Leave the ice on for 20 minutes, 2???3 times a day. ??? Remove the ice if your skin turns bright red. This is very important. If you cannot feel pain, heat, or cold, you have a greater risk of damage to the area. ??? Move your toes often to reduce stiffness and swelling. ??? Raise (elevate) the injured area above the level of your heart while you are sitting or lying down. Activity ??? Return to your normal activities as told by your health care provider. Ask your health care provider what activities are safe for you. ??? Do exercises as told by your health care provider. ??? Do not use the injured limb to support your body weight until your health care provider says that you can. Use crutches or a walker as told by your health care provider. Driving ??? Ask your health care provider when it is safe to drive if you have a cast, splint, brace, or walking boot on your leg. ??? Ask your health care provider if the medicine prescribed to you requires you to avoid driving or using machinery. General instructions ??? Do not put pressure on any part of the cast or splint until it is fully hardened. This may takeseveral hours. ??? Do not use any products that contain nicotine or tobacco, such as cigarettes e-cigarettes, and chewing tobacco. These can delay bone healing. If you need help quitting, ask your health care provider. ??? Take yevg-ukk-dxfulzx and prescription medicines only as told by your health care provider. ??? Keep all follow-up visits. This is important. Contact a health care provider if: ??? You have pain that gets worse or does not get better with rest or medicine. ??? You have more swelling or redness in your foot. Get help right away if: ??? Your skin or nails below your injury: ??? Turn blue or walker. ??? Feel cold. ??? Become numb. ??? Become less sensitive to touch. ??? You develop new or severe pain in your leg or foot. ??? You have tingling, burning, and tightness in your lower leg. Summary ??? Tibial and fibular fractures are breaks in both of the lower leg bones (tibia and fibula). ??? If your bones are out of place or if your leg is unstable, you may need surgery. Surgery is common for tibial and fibular fractures. ??? If directed, put ice on the injured area for 20 minutes, 2???3 times a day. ??? Pain medicine and elevating your injured leg will help control pain and reduce swelling. Followdirections as told by your health care provider. This information is not intended to replace advice given to you by your health care provider. Make sure you discuss any questions you have with your health care provider. Document Revised: 08/05/2020 Document Reviewed: 08/05/2020 Incoming Media Patient Education ?? 2022 [employer]go. 08/20/2023 18:39:25 Cast or Splint Care, Adult, [id number] Cast or Splint Care, Adult Casts and splints are supports that are worn to protect broken bones and other injuries. A cast or splint may hold a bone still and in the correct position while it heals. Casts and splints may also help with pain, swelling, and muscle spasms. A cast is a hardened support that is usually made of fiberglass or plaster. It is custom-fit to thebody and offers more protection than a splint. Most casts cannot be taken off and put back on. A splint is a type of soft support that is usually made from cloth and elastic. It can be adjusted or taken off as needed. Often, splints are used on broken bones at first. Later, a cast can replace the splint. What are the risks? In some cases, wearing a cast or splint can make it so that less blood gets to the wrist or hand orto the foot and toes. This can happen if there is a lot of swelling or if the cast or splint is tootight. Limited blood supply can cause a problem called compartment syndrome. This can lead to lasting damage. Symptoms include: ??? Pain that gets worse. ??? Numbness and tingling. ??? Changes in skin color, including paleness or a bluish color. ??? Cold fingers or toes. Other problems from wearing a cast or splint can include: ??? Skin irritation that can cause: ??? Itching. ??? Rash. ??? Skin sores. ??? Skin infection. ??? Limb stiffness or weakness. How to care for a cast or splint that cannot be taken off ??? Do not put pressure on any part of the cast or splint until it is fully hardened. ??? Do not stick anything inside the cast or splint to scratch your skin. ??? Check the skin around the cast or splint every day. Tell your doctor if you see problems. ??? You may put lotion on dry skin around the cast or splint. Do not put lotion on the skin under the cast or splint. ??? Keep the cast or splint clean and dry. How to care for your splint that you can take off ??? Wear the splint as told by your doctor. Take it off only as told by your doctor. ??? Check the skin around it every day. Tell your doctor if you see problems. ??? Loosen it if your fingers or toes: ??? Tingle. ??? Become numb. ??? Turn cold and blue. ??? Keep it clean and dry. Clean your splint as told by your doctor. Use mild soap and water and let it air-dry. Do not use heat on the splint. Follow these instructions at home: Bathing ??? Do not take baths, swim, or use a hot tub until your doctor approves. Ask your doctor if you may take showers. You may only be allowed to take sponge baths. ??? If the cast or splint is not waterproof: ??? Do not let it get wet. ??? Cover it with a watertight covering when you take a bath or a shower. Managing pain, stiffness, and swelling ??? If told, put ice on the affected area. To do this: ??? If you have a cast or splint that can be taken off, take it off as told by your doctor. ??? Put ice in a plastic bag. ??? Place a towel between your skin and the bag or between your cast and the bag. ??? Leave the ice on for 20 minutes, 2???3 times a day. ??? Take off the ice if your skin turns bright red. This is very important. If you cannot feel pain, heat, or cold, you have a greater risk of damage to the area. ??? Move your fingers or toes often. ??? Raise the injured area above the level of your heart while you are sitting or lying down. Safety ??? Do not use your injured leg or foot to support your body weight until your doctor says that youcan. ??? Use crutches or other helpful (assistive) devices as told by your doctor. ??? Ask your doctor when it is safe to drive if you have a cast or splint on part of your body. General instructions ??? Take rjaf-qeu-jatcuyl and prescription medicines only as told by your doctor. ??? Return to your normal activities as told by your doctor. Ask your doctor what activities are safe for you. ??? Keep all follow-up visits. This is important. Contact a doctor if: ??? The skin around the cast or splint gets red or raw. ??? The skin under the cast is very itchy or painful. ??? Your cast or splint: ??? Gets damaged. ??? Feels very uncomfortable. ??? Is too tight or too loose. ??? Your cast becomes wet or it starts to have a soft spot or area. ??? There is a bad smell coming from under your cast. ??? You get an object stuck under your cast. Get help right away if: ??? You get any symptoms of compartment syndrome, such as: ??? Very bad pain or pressure under the cast. ??? Numbness, tingling, coldness, or pale or bluish skin. ??? The part of your body above or below the cast is swollen, and it turns a different color (is discolored). ??? You cannot feel or move your fingers or toes. ??? Your pain gets worse. ??? There is fluid leaking through the cast. ??? You have trouble breathing or shortness of breath. ??? You have chest pain. These symptoms may be an emergency. Get help right away. Call your local emergency services (911 int [place] ??? Do not wait to see if the symptoms will go away. ??? Do not drive yourself to the hospital. Summary ??? Casts and splints are worn to protect broken bones and other injuries. ??? Keep your cast or splint clean and dry. ??? Take off your cast or splint only as told by your doctor. ??? Get help right away if you have very bad pain, numbness, tingling, or skin that turns cold or another color. This information is not intended to replace advice given to you by your health care provider. Make sure you discuss any questions you have with your health care provider. Document Revised: 09/14/2021 Document Reviewed: 09/14/2021 Elsevier Patient Education ?? 2022 CodeNgo. Follow Up Care 08/20/2023 18:54:56 With:Lasha Estevez MD Address: [address] [place] [phone] When:1 week Physician Emergency department Note * Eladio Vallecillo MD: PERFORM Event Display: ED Note Physician Authored Date: [id number] ENRIKE LEO :1945 Age:78 years Sex:Male Visit Date:08/20/2023 Primary Care Physician: Sherrell Mcdowell NP Basic Information Time Seen: Eladio Vallecillo MD / 08/20/2023 18:58 Chief Complaint stepped into a hole this afternoon injuring his R leg, states artificial R hip and R knee and it all went to hell History Of Present Illness: 78-year-old male presents because of a right lower leg injury??that happened??earlier this afternoon when walking on hide even ground outside. ??He states that he??slipped slid sideways??and ended uphurting his right side notably the distal fibular area.?? Though he feels that he jammed his??right thigh also that no longer hurts. ??He has been able to??put some weight on it but??started using crutches. ??Denies any head neck chest abdomen??or back injury.?? He has had a prosthetic??right hip and knee. ??The knee and hip joint itself do not hurt at this time. Review of Systems: Per HPI Physical Exam Vitals & Measurements T:??36.7?C ??(Temporal Artery)?? HR:??88??(Monitored)?? RR:??18?? BP:??141/65?? SpO2:??97%?? HT:??178??cm?? WT:??129??kg?? BMI:??40.71?? Pain Score:??8?? General:??alert,??no acute distress. Skin:??warm,??dry. Head:??no??trauma,??normocephalic. Neck: No C-spine tenderness Eye:??normal??conjunctiva, sclera??clear. Cardiovascular:?? ,??normal??peripheral perfusion. Respiratory:?respirations??non-labored. Back: No thoracic or lumbar spine pain ? Extremities:??no??deformity,??right hip thigh and knee on palpation??no anomalies or pain or joint effusion.?? Ankle on the right per se over the malleus there is no outstanding pain.?? Right foot isunremarkable.?? There is some tenderness along the distal fibula laterally where there is no major e cchymotic changes. NeurolOgical:??oriented??x 4, LOC??appropriate for age,??, speech??normal. Psychiatric:??cooperative, affect??appropriate for age,??normal??judgement,??normal??psychiatric thoughts. Medical Decision Making: Patient stable here. ??Appears to have a distal fibula fracture,??clinically did not appear to havea??unstable ankle joint or widening of the mortise.?? I put??an Felipe bandage and we gave him an equalizer boot. ??He already has crutches. ??I told him to follow-up with orthopedics to do touchdown oneal ghtbearing. ??He did not need anything for pain here. ??He was discharged in stable condition ?? Medical Decision-Making: ?? Tests in the radiology section of CPT??: ordered and reviewed -??Yes ?? Review and summarize past medical records -??Yes ?? Independent visualization of images, tracings, or specimens? Yes ?* Final Report * ?? XR Tibia/Fibula Right PROCEDURE INFORMATION:?? Exam: XR Right Tibia and Fibula?? Exam date and time: 08/20/2023 7:31 PM?? Age: 78 years old?? Clinical indication: Injury? TECHNIQUE:?? Imaging protocol: Radiologic exam of the right tibia and fibula.?? Views: 2 views.? COMPARISON:?? No relevant prior studies available.? FINDINGS:?? Bones/joints: Status post right knee arthroplasty. There is minimally?? displaced spiral fracture of the distal fibular metadiaphysis with?? distal extent appearing to be proximal to the tibial plafond. No?? joint dislocation. ??Plantar spur is present. Soft tissues: Lateral soft tissue edema of the distal right lower leg?? and ankle.? IMPRESSION:?? Minimally displaced distal fibular metadiaphyseal fracture.? Report signed by: Lenin Kline On 08/20/2023 ??21:20:29 ?? [1] Procedure No Qualifying Data Assessment/Plan Right fibular fracture??S82.401A Ordered: ED Visit Follow Up [facility], Orders for future visit, 08/20/23 19:37:00 EDT, Right fibular fracture ?? Orders: Discharge Patient, 08/20/23 19:37:00 EDT, Home Independently, Constant Indicator Splint/Brace Application, Once, Walking Boot Non-Inflatable, Stop date 08/20/23 19:35:00 EDT Patient Education Tibial and Fibular Fractures Cast or Splint Care, Adult, Rjyj-uc-Ikar Follow Up With When Contact Information Hira PARSON, Lasha Obrien MD Within [address] [place] [phone] Additional Instructions: Medication Reconciliation Unchanged acetaminophen (acetaminophen 500 mg oral tablet) ?? aspirin (aspirin 81 mg oral capsule) ?? carvedilol (carvedilol 12.5 mg oral tablet)1 tab Oral (given by mouth) 2 times a day. Refills: 3. ?? ezetimibe (ezetimibe 10 mg oral tablet)1 tab Oral (given by mouth) every day. Refills: 3. ?? nitroglycerin (Nitrostat 0.4 mg sublingual tablet) ?? Other Prescription (Golo Release Dietary Supplement) ?? ubiquinone (Coenzyme Q10) Problem List/Past Medical History Ongoing Aortic valve sclerosis Atherosclerosis of coronary artery without angina pectoris Conductive hearing loss Essential tremor History of malignant melanoma of the skin History of total hip arthroplasty Hyperlipidemia Hypertensive disorder Knee joint prosthesis present Mixed hyperlipidemia Morbid obesity Primary impotence Systolic murmur Historical Aortic valve disorder Blood chemistry abnormal Cellulitis Conduction disorder of the heart Disorder of hyperalimentation Disorder of penis Drug-induced constipation Epidermoid cyst of skin Eruption Fibromyositis Joint pain Localized, primary osteoarthritis Localized, 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 Osteoarthritis of knee Plantar fascial fibromatosis Primary cardiomyopathy Zoster sine herpete Procedure/Surgical History ???Colonoscopy, flexible; with biopsy, single or multiple (01/12/2021)???Repair of quadriceps tendon (procedure) (04/08/2020)???Arthroplasty, knee, tibial plateau; (09/21/2016)???Open treatment of spontaneous hip dislocation (developmental, including congenital or pathological), replacement of femoral head in acetabulum (including tenotomy, etc); (04/03/2016)???Balloon angioplasty, intracranial (eg, atherosclerotic stenosis), percutaneous (07/10/2015) Allergies cephalosporins??(Skin rash) HMG-CoA reductase inhibitors??(Muscle pain) amoxicillin atorvastatin??(Muscle pain) simvastatin??(Muscle pain) statins??(Muscle pain) Social History Alcohol Never Electronic Cigarette/Vaping Electronic Cigarette Use: Never. Employment/School Retired Exercise Exercise frequency: Daily. Exercise type: Walking. Nutrition/Health Diet: Regular. Substance Use Never Tobacco Former tobacco user Tobacco Use:.- Comments: started age 15 quit 2000 Family History Alzheimer's disease: Father. Referral Orders ED Visit Follow Up [facility], Orders for future visit, 08/20/23 19:37:00 EDT, Right fibular fracture Diagnostic Results Diagnostic Study Interpretation: Tib-fib x-ray as interpreted by me shows a nondisplaced?fibular fracture above the mortise.?? Nosigns of widening of the ankle mortise. [1]??XR Tibia/Fibula Right; DomainUser, Generated 08/20/2023 19:31 EDT Electronically Signed on 08/20/23 11:30 PM Eladio Vallecillo MD Emergency department Discharge instructions * Eladio Vallecillo MD: PERFORM Event Display: ED Discharge Information Authored Date: [id number] ENRIKE LEO :1945 Age:78 years Sex:Male Visit Date:08/20/2023 Primary Care Physician: Hernesto Nascimento MD Discharge Instructions We would like to thank you for allowing us to assist you with your healthcare needs. The following includes patient education materials and information regarding your injury/illness. Diagnosis from Today's Visit Right fibular fracture Discharge Vitals Temperature??(Temporal Artery) 98.1 ??F (36.7 ??C) Heart Rate??(Monitored) 88 Respiratory Rate?? 18 Blood Pressure?? 141/65?? SpO2?? 97% Height?? 70.08 in (178 cm) Weight?? 284.44 lb (129 kg) BMI?? 40.71 Allergies cephalosporins??(Skin rash) HMG-CoA reductase inhibitors??(Muscle pain) amoxicillin atorvastatin??(Muscle pain) simvastatin??(Muscle pain) statins??(Muscle pain) What to Do Next Instructions from Your Care Team You have an isolated distal fibular fracture.?? Do touchdown weightbearing only, use your crutches and wear the Felipe bandage and??equalizer boot.?? Elevate your leg when sitting. ??You can take some Tylenol as needed for pain. ??If the Felipe bandage feels too tight you can loosen it.?? Follow-up with [facility] orthopedics or Dr. Iniguez or Dr. Ragland??can see you. ??Phone number there is [phone], they are on [address] next to the hospital. You Need to Schedule the Following Appointments Follow Up with??[facility] When:??Within 1 week Where: [address] [facility] [address] [place], [place] [id number] You were treated today on an emergency basis; it may be hoskins to contact your primary care provider to notify them of your visit today. You may have been referred to your regular doctor or a specialist, please follow up as instructed. If your condition worsens or you can't get in to see the doctor, contact the Emergency Department. Medications What How Much When Why Instructions Next Dose Unchanged acetaminophen (acetaminophen 500 mg oral tablet) Unchanged aspirin (aspirin 81 mg oral capsule) Unchanged carvedilol (carvedilol 12.5 mg oral tablet) 1 tab Oral (given by mouth) 2 times a day Chronic heart disease Unchanged ezetimibe (ezetimibe 10 mg oral tablet) 1 tab Oral (given by mouth) Every day H/O hyperlipidemia Unchanged nitroglycerin (Nitrostat 0.4 mg sublingual tablet) Unchanged Other Prescription (Golo Release Dietary Supplement) Unchanged ubiquinone (Coenzyme Q10) Education Materials Tibial and Fibular Fractures Tibial and fibular fractures are breaks in both of the lower leg bones (tibia and fibula). The tibia, also called the jernigan bone, is the larger of these two bones. The fibula is the smaller of the twobones and is on the outer side of the leg. When tibiofibular fractures happen, the bones may: ? Break, but stay close to their normal position (stable or nondisplaced fracture). ? Break and move out of their normal position (unstable or displaced fracture). ? Break into several small pieces (comminuted fracture). ? Break through the skin (compound or open fracture). What are the causes? This condition is caused by injuries, such as: ? Falls from significant heights or falls while cycling. ? Sports contact injuries, like collisions in football or soccer. ? Severe, forceful twisting of your leg, such as falls while skiing. ? Car or motorcycle crashes. What increases the risk? You are more likely to develop this condition if: ? You participate in sports, especially contact sports or sports that may involve impact or twisting,like football or skiing. ? You smoke. What are the signs or symptoms? Symptoms of this condition include: ? Pain, swelling, and bruising in the lower leg, ankle, or knee. ? Difficulty walking or putting weight on your injured leg. ? Change in the shape of your leg at the site of the injury. ? Pain that gets worse with moving or standing and gets better with rest. How is this diagnosed? This condition is diagnosed with a physical exam and X-rays. In some cases, a CT scan may be done to help diagnose certain types of fractures. How is this treated? Treatment for this condition depends on the type and severity of your fractures. ? If your bones did not move out of place and your leg is still stable, or if you are unable to have surgery, you may be treated with a cast, brace, or walking boot. This keeps the bones in place (immobile) while they heal. ? If your bones are out of place or if your leg is unstable, you may need surgery. Surgery is common for tibial and fibular fractures. During surgery, the bones are moved back into their normal position, and a mandeep, plate, or screws are used to hold the bones in place. After surgery, the leg is put barry splint or cast. Treatment may also include: ? Medicine, ice, and elevation of the leg to help relieve pain and inflammation. ? Using crutches or a walker while you heal. ? Exercises to strengthen leg and ankle muscles and restore motion (physical therapy). Follow these instructions at home: If you have a splint, brace, or walking boot: ? Wear it as told by your health care provider. Remove it only as told by your health care provider. Some types of splints can only be removed by your health care provider. ? Loosen it if your toes tingle, become numb, or turn cold and blue. ? Keep it clean and dry. If you have a cast: ? Do not stick anything inside the cast to scratch your skin. Doing that increases your risk of infection. ? Check the skin around the cast every day. Tell your health care provider about any concerns. ? You may put lotion on dry skin around the edges of the cast. Do not put lotion on the skin underneath the cast. ? Keep it clean and dry. Bathing ? Do not take baths, swim, or use a hot tub until your health care provider approves. Ask your healthcare provider if you may take showers. You may only be allowed to take sponge baths. ? If the cast, splint, brace, or boot is not waterproof: ? Do not let it get wet. ? Cover it with a watertight covering when you take a bath or a shower. Managing pain, stiffness, and swelling ? If directed, put ice on the injured area. To do this: ? If you have a removable splint, brace, or boot, remove it as told by your health care provider. ? Put ice in a plastic bag. ? Place a towel between your skin and the bag or between your splint or cast and the bag. ? Leave the ice on for 20 minutes, 2???3 times a day. ? Remove the ice if your skin turns bright red. This is very important. If you cannot feel pain, heat, or cold, you have a greater risk of damage to the area. ? Move your toes often to reduce stiffness and swelling. ? Raise (elevate) the injured area above the level of your heart while you are sitting or lying down. Activity ? Return to your normal activities as told by your health care provider. Ask your health care provider what activities are safe for you. ? Do exercises as told by your health care provider. ? Do not use the injured limb to support your body weight until your health care provider says that you can. Use crutches or a walker as told by your health care provider. Driving ? Ask your health care provider when it is safe to drive if you have a cast, splint, brace, or walking boot on your leg. ? Ask your health care provider if the medicine prescribed to you requires you to avoid driving or using machinery. General instructions ? Do not put pressure on any part of the cast or splint until it is fully hardened. This may take several hours. ? Do not use any products that contain nicotine or tobacco, such as cigarettes e- cigarettes, and chewing tobacco. These can delay bone healing. If you need help quitting, ask your health care provider. ? Take vymc-fzn-bvznami and prescription medicines only as told by your health care provider. ? Keep all follow-up visits. This is important. Contact a health care provider if: ? You have pain that gets worse or does not get better with rest or medicine. ? You have more swelling or redness in your foot. Get help right away if: ? Your skin or nails below your injury: ? Turn blue or walker. ? Feel cold. ? Become numb. ? Become less sensitive to touch. ? You develop new or severe pain in your leg or foot. ? You have tingling, burning, and tightness in your lower leg. Summary ? Tibial and fibular fractures are breaks in both of the lower leg bones (tibia and fibula). ? If your bones are out of place or if your leg is unstable, you may need surgery. Surgery is common for tibial and fibular fractures. ? If directed, put ice on the injured area for 20 minutes, 2???3 times a day. ? Pain medicine and elevating your injured leg will help control pain and reduce swelling. Follow directions as told by your health care provider. This information is not intended to replace advice given to you by your health care provider. Make sure you discuss any questions you have with your health care provider. Document Revised: 08/05/2020 Document Reviewed: 08/05/2020 [employer] Patient Education ?? 2022 [employer] Cast or Splint Care, Adult Casts and splints are supports that are worn to protect broken bones and other injuries. A cast or splint may hold a bone still and in the correct position while it heals. Casts and splints may also help with pain, swelling, and muscle spasms. A cast is a hardened support that is usually made of fiberglass or plaster. It is custom-fit to thebody and offers more protection than a splint. Most casts cannot be taken off and put back on. A splint is a type of soft support that is usually made from cloth and elastic. It can be adjusted or taken off as needed. Often, splints are used on broken bones at first. Later, a cast can replace the splint. What are the risks? In some cases, wearing a cast or splint can make it so that less blood gets to the wrist or hand orto the foot and toes. This can happen if there is a lot of swelling or if the cast or splint is tootight. Limited blood supply can cause a problem called compartment syndrome. This can lead to lasting damage. Symptoms include: ? Pain that gets worse. ? Numbness and tingling. ? Changes in skin color, including paleness or a bluish color. ? Cold fingers or toes. Other problems from wearing a cast or splint can include: ? Skin irritation that can cause: ? Itching. ? Rash. ? Skin sores. ? Skin infection. ? Limb stiffness or weakness. How to care for a cast or splint that cannot be taken off ? Do not put pressure on any part of the cast or splint until it is fully hardened. ? Do not stick anything inside the cast or splint to scratch your skin. ? Check the skin around the cast or splint every day. Tell your doctor if you see problems. ? You may put lotion on dry skin around the cast or splint. Do not put lotion on the skin under the cast or splint. ? Keep the cast or splint clean and dry. How to care for your splint that you can take off ? Wear the splint as told by your doctor. Take it off only as told by your doctor. ? Check the skin around it every day. Tell your doctor if you see problems. ? Loosen it if your fingers or toes: ? Tingle. ? Become numb. ? Turn cold and blue. ? Keep it clean and dry. Clean your splint as told by your doctor. Use mild soap and water and let itair-dry. Do not use heat on the splint. Follow these instructions at home: Bathing ? Do not take baths, swim, or use a hot tub until your doctor approves. Ask your doctor if you may take showers. You may only be allowed to take sponge baths. ? If the cast or splint is not waterproof: ? Do not let it get wet. ? Cover it with a watertight covering when you take a bath or a shower. Managing pain, stiffness, and swelling ? If told, put ice on the affected area. To do this: ? If you have a cast or splint that can be taken off, take it off as told by your doctor. ? Put ice in a plastic bag. ? Place a towel between your skin and the bag or between your cast and the bag. ? Leave the ice on for 20 minutes, 2???3 times a day. ? Take off the ice if your skin turns bright red. This is very important. If you cannot feel pain, heat, or cold, you have a greater risk of damage to the area. ? Move your fingers or toes often. ? Raise the injured area above the level of your heart while you are sitting or lying down. Safety ? Do not use your injured leg or foot to support your body weight until your doctor says that you can. ? Use crutches or other helpful (assistive) devices as told by your doctor. ? Ask your doctor when it is safe to drive if you have a cast or splint on part of your body. General instructions ? Take obsl-fgo-vhhrpzq and prescription medicines only as told by your doctor. ? Return to your normal activities as told by your doctor. Ask your doctor what activities are safe for you. ? Keep all follow-up visits. This is important. Contact a doctor if: ? The skin around the cast or splint gets red or raw. ? The skin under the cast is very itchy or painful. ? Your cast or splint: ? Gets damaged. ? Feels very uncomfortable. ? Is too tight or too loose. ? Your cast becomes wet or it starts to have a soft spot or area. ? There is a bad smell coming from under your cast. ? You get an object stuck under your cast. Get help right away if: ? You get any symptoms of compartment syndrome, such as: ? Very bad pain or pressure under the cast. ? Numbness, tingling, coldness, or pale or bluish skin. ? The part of your body above or below the cast is swollen, and it turns a different color (is discolored). ? You cannot feel or move your fingers or toes. ? Your pain gets worse. ? There is fluid leaking through the cast. ? You have trouble breathing or shortness of breath. ? You have chest pain. These symptoms may be an emergency. Get help right away. Call your local emergency services ([facility] ? Do not wait to see if the symptoms will go away. ? Do not drive yourself to the hospital. Summary ? Casts and splints are worn to protect broken bones and other injuries. ? Keep your cast or splint clean and dry. ? Take off your cast or splint only as told by your doctor. ? Get help right away if you have very bad pain, numbness, tingling, or skin that turns cold or another color. This information is not intended to replace advice given to you by your health care provider. Make sure you discuss any questions you have with your health care provider. Document Revised: 09/14/2021 Document Reviewed: 09/14/2021 [employer] Patient Education ?? 2022 [employer] Patient/Assistant Chief Train Dispatcher Signature Patient Name:ENRIKE LEO I have received this information and my questions have been answered. Patient/Assistant Chief Train Dispatcher Name: Patient/Assistant Chief Train Dispatcher Signature: Relationship to Patient: Witness Name/Signature: Date: Electronically Signed on: 08/20/2023 19:41 EDTSigned by:EDWARD Patient Care team information Care Team Personnel Name: Sherrell Mcdowell HEALTHCARE ADMINISTRATOR Position: PowerChart View Only Member Role: Informed Provider Address: Address: [address] [place] [address] Care Team Related Persons Name: SANFORD LEO Address: [address] [address] Address: Home [address] [place] [phone] Address: Mailing [address] [place] [phone] Name: SANFORD LEO Address: [address] [address] [place] Address: Mailing [address] [place] [address], [place] [phone] Name: BALBINA LEO Address: [place] [address] [place], [place] [id number] [place] [id number] Name: BALBINA LEO Address: [place] [address] [place] [phone] [place] Name: BALTAZAR INGRAM Address: [address] [phone] Name: BALTAZAR INGRAM Address: [address] [phone] Address: Mailing [address] [place] [phone] Name: BALTAZAR INGRAM Hector Address: Home [address] [facility], [id number] Address: Mailing [address] [place] [address], [place] [phone]
--- OUTSIDE RECORDS SUMMARY | 2023-10-23 09:03 | XMS_ITS | Encounter Summary ---
Author Organization [facility] [place] [address] Care Team Providers Care Optical Element Coater Name Role Phone Phoenix Guzmán DO Primary Care Provider [phone] Encounter Details Date Type Department Care Team (Latest Contact Info) Description 07/04/2023 Travel Social History Tobacco Use Types Packs/Day [...] 9:15 AM EDT Office Visit Dermatology at [facility] [address] [place] [address] Dawson Broderick MD [facility] [place] [address] 07/23/2024 9:30 AM EDT Office Visit Dermatology at [facility] [address] [place] [place] [address] Dawson Broderick MD [facility] [place] [address] documented as of this encounter Visit Diagnoses Not on filedocumented in this encounter Care Teams Optical Element Coater Relationship Specialty Start Date End Date Phoenix Guzmán DO [address] [place] [address] [place] [id number] PCP - General General Internal Medicine 02/20/15 documented as of this encounter
--- OUTSIDE RECORDS SUMMARY | 2023-10-23 09:03 | XMS_ITS | Encounter Summary ---
Author Organization [facility] [place] [address] Care Team Providers Care Annual Campaign Manager Name Role Phone Phoenix Guzmán DO Primary Care Provider [phone] Encounter Details Date Type Department Care Team (Latest Contact Info) Description 06/27/2023 Travel Social History Tobacco Use Types Packs/Day [...] 9:15 AM EDT Office Visit Dermatology at [facility] [address] [place] [address] Dawson Broderick MD [facility] [address] [place] [address] 07/23/2024 9:30 AM EDT Office Visit Dermatology at [facility] [address] [place] [address] Dawson Broderick MD [facility] [address] [place] [address] documented as of this encounter Visit Diagnoses Not on filedocumented in this encounter Care Teams Annual Campaign Manager Relationship Specialty Start Date End Date Phoenix Guzmán DO [address] [place] [address] [place] [id number] PCP - General General Internal Medicine 02/20/15 documented as of this encounter
--- OUTSIDE RECORDS SUMMARY | 2023-10-23 09:03 | XMS_ITS | Encounter Summary ---
[place] [address] Care Team Providers Care Ground Support Equipment Mechanic Name Role Phone Phoenix Guzmán DO Primary Care Provider [phone] Reason for Visit * Reason Comments Skin Check Encounter Details Date Type Department Care Team (Late st Contact Info) Description 07/04/2023 9:30 AM EDT Office Visit Dermatology at [facility] [address] [place] [address] Dawson Bolton MD [facility] [address] [place] [address] Seborrheic keratosis; Maciel angioma; Venous lowe; Tinea pedis, unspecified laterality; Onychomycosis; History of melanoma Social History Tobacco Use Types Packs/Day Years [...] as of this encounter Progress Notes * Dawson Bolton MD - 07/04/2023 9:30 AM EDT Images from the original note were not included. DEPARTMENT OF DERMATOLOGY [facility] Provider: DAWSON BOLTON MD Patient's preferred name Artemio Maher Preferred contact method for results []myDH []Letter []Phone: home Detailed phone message OK? yes Are there any other people with whom we may discuss your care? - Sussy PAST MEDICAL HISTORY If no, type N. 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 eczema, psoriasis, birthmarks, immunosuppression) FAMILY HISTORY If yes, details Melanoma no NMSC no Other relevant family history no SOCIAL HISTORY Occupation: retired Hobbies: Other: PRE-PROCEDURE SCREENING If no, type N. If yes, include details below Allergy to lidocaine, epinephrine, Dermabond, chlorhexidine, or adhesives: no Bleeding disorder or blood thinners: ASA 81 Pacemaker, defibrillator, deep brain stimulator, cochlear implant: no History of Present Illness: Gunnar Morin is a 78 y.o. Patient returns to clinic today for a fullskin exam and he reports - Dark spot near the site of previous melanoma, noticed last December, asymptomatic, no swelling in lymph nodes Last visit at Dermatology: 07/19/2022 Last visit with this provider: Visit date not found Medications: Reviewed in eD-H Allergies: Reviewed in eD-H Skin Examination: Full skin examination: Patient asked to undress to their comfort level. Verbalized that the provider's preference is that patient remove all clothing and that the provider will not examine areas patient elects to keep covered. Examination of the scalp, hair, head, face, ears, neck, chest, axillae, abdomen, back, buttocks, genitalia, and upper and lower extremities was normal with the exception ofthe findings below. Assessment/Plan # History of 1.76mm melanoma located on the distal right shaft of penis s/p excision (12/2016) and imiquimod immunotherapy x 12 weeks - Hampton lamp negative - No signs of recurrence - No inguinal lymphadenopathy noted - Continue clinical monitoring # Onychomycosis and Tinea Pedis - b/l feet - Benign. Not bothersome to patient - No treatment necessary #. Seborrheic Keratoses - Multiple 0.4-1 cm, brown-black papules/plaques with waxy stuck on appearance - Benign. No treatment necessary. - Reassured about benign nature and natural history. #. 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 No treatment necessary. - Reassured about benign nature and natural history. #. Venous Lowe - Blue-purple vascular macule that blanches upon diascopy on the lower lip - Discussed benign nature of lesion and provided reassurance. No treatment necessary at this time. #. Penis Pigment - (Figure 1) - Discussed option of biopsy versus recheck of spot in 3 months. Shared decision to proceed with recheck in 3 months, scheduled upon exit today. - Reviewed if patient notices any change before next visit call and will get in for a biopsy Figure 1. Small area of mild pigmentation, away from the original melanoma, and scar, discussed ...Will observe, next visit, will biopsy if changing. Photo(s) taken and charted with patient's verbal consent. RTC: 3 months for recheck lesion on the penis and 1 yr for FSE (Figure 1) []Note routed to vegetable tester []Recall placed in scheduling system [x]Appointment scheduled at checkout Scribe attestation: Humaira Spivey RN has performed the documentation for this encounter in the presence of and acting as a scribe for DAWSON BOLTON MD. I performed the above scribed service and agree with the accuracy of the documentation in this encounter. Reviewed and signed by: DAWSON BOLTON MD Dermatology [facility] documented in this encounter Plan of Treatment Upcoming Encounters Date Type Department Care Team (Late st Contact Info) Description 10/31/2023 9:15 AM EDT Office Visit Dermatology at [facility] [address] [place] [address] Dawson Bolton MD [facility] [address] [place] [address] 07/23/2024 9:30 AM EDT Office Visit Dermatology at [facility] [address] [place] [address] Dawson Bolton MD [facility] [address] [address] documented as of this encounter Visit Diagnoses Diagnosis Seborrheic keratosis Other seborrheic keratosis Maciel angioma Nevus, non-neoplastic Venous lowe Hemangioma of skin and subcutaneous tissue Tinea pedis, unspecified laterality Onychomycosis Dermatophytosis of nail History of melanoma Personal history of malignant melanoma of skin documented in this encounter Care Teams Ground Support Equipment Mechanic Relationship Specialty Start Date End Date Phoenix Guzmán DO [address] [place] [address] [place] [id number] PCP - General General Internal Medicine 02/20/15 documented as of this encounter
--- OUTSIDE RECORDS SUMMARY | 2023-10-23 09:04 | XMS_ITS | Encounter Summary ---
Author Organization [facility] [place] [address] Care Team Providers Care Corporate Development Officer Name Role Phone RamirezPhoenix Susan MCDOWELL Primary Care Provider Reason for Visit * Auth/Cert Specialty Diagnoses / Procedures Referred By Omid shepherd Referred To Contact Diagnoses Status post total left knee replacement Left loose tibial component status post left total knee 2016 Procedures PRO REVISE KNEE JOINT REPLACE, ALL PARTS @TOTAL KNEE REVISION ARTHROPLASTY, COMPLETE (WRVU 27.11) MODIFIER ATTUNE REVISION ROTATING PLATFORM RP KNEE SYSTEM DEPUY Referral ID Status Reason Start Date Expiration Date Visits Re quested Visits Authorized [id number] 1 1 Encounter Details Date Type Department Care Team (Late st Contact Info) Description 12/11/2019 1:41 PM EDT Anesthesia Event [place] [id number] Lg Salazar MD [facility] [place] [address] Ananda Bonilla MD [facility] [place] [address] Anesthesia Record Procedure Summary Procedure Name Responsible Anesthesiologist Anesthesia Start Time Anesthesia Stop Time @TOTAL KNEE REVISION ARTHROPLASTY, COMPLETE (WRVU 27.11) (Left: Knee) Sites, Lg Chavez MD 12/11/19 1341 12/11/19 1659 Events Date Time Event Comment 12/11/2019 1147 1341 Start 1349 AN Verify 1349 An Start Data 1349 An Induction 1354 An Intubation 1354 Anesthesia Ready 1411 An Tourn Inflated 250 mmHg L LE 1432 Break/Relief In I assumed ca re for Break Relief before which we: 1. Identified the patient 2. Identified the responsible provider(s) 3. Reviewed the pertinent medical history 4. Discussed the surgical plan and course 5. Reviewed intra-op anesthesia management and issues during anesthesia 6. Set expectations for the relief (and/or post-procedure) period 7. Allowed opportunity for questions and acknowledgement of understanding Jovani Claros CRNA 1444 Break/Relief Out 1543 An Tourn Deflated 92 miniute s 1656 Extubation/LMA Out 1659 an stop data 1659 Recovery or ICU Handoff Charlene ent care was transferred to the destination unit staff after review of the patient's medical history, current anesthetic/surgical status and plan, according to the Provider Handoff Checklist. 1659 Stop Meds Name Total Propofol 350 mg Rocuronium 30 mg PHENYLephrine 560 mcg ePHEDrine 50 mg Ondansetron 8 mg Dexamethasone 8 mg Neostigmine 5 mg Glycopyrrolate 0.8 mg fentaNYL (PF) 50 mcg/mL injection 100 mc g Succinylcholine 200 mg clindamycin (CLEOCIN) 600mg in dextrose 5% 50mL 600 mg HYDROmorphone 2 mg lactated ringers infusion 1,200 mL * Agents Name O2 Air N2O Sevoflurane (et) * Blood No blood administrations on file. Lines, Drains, and Airways Type Details Placement Removal Incision 09/07/15; knee; 11/02 12/23 (LDA cleanup utility RA#[id number]); 171 (LDA cleanup utility RA#[id number]) 09/07/15 0000 by Mariam Vaz RN 11/29/21 1715 by Marion Vásquez Incision 06/29/16; 0810; hip; vertical; 11/29/21 (LDA cleanup utility RA#[id number]); 1715 (LDA cleanup utility RA#[id number]) 06/29/16 0810 by Shona Conde RN 11/29/21 1715 by Marion Vásquez Incision 09/21/16; 1355; knee ; 11/29/21 (LDA cleanup utility RA#[id number]); 1715 (LDA cleanup utility RA#[id number]) 09/21/16 1355 by Rianna Pinto RN 11/29/21 1715 by Marion Vásquez Incision 01/19/17; 1532; thig h; 11/29/21 (LDA cleanup utility RA#[id number]); 1715 (LDA cleanup utility RA#[id number]) 01/19/17 1532 by Alexei Gamez RN 11/29/21 1715 by Marion Vásquez Incision 12/01/17; 1211; hip; 11/29/21 (LDA cleanup utility RA#[id number]); 1715 (LDA cleanup utility RA#[id number]) 12/01/17 1211 by Valerie Terry RN 11/29/21 1715 by Marion Vásquez (RETIRED) Peripheral IV Line - Single Lumen 12/11/19; 1103; cephalic vein (lateral side of arm), left; [id number] catheter system; 18 gauge; chencho tatum; distraction, intradermal injection; 12/12/19; 1357 12/11/19 1103 by Antoinette Bowling RN 12/12/19 1357 by Dionna Kearney, RN ETT Mask Ventilation: Ea sy (1); ETT Type: Cuffed; ETT Size: 7.5 mm; Mac Blade: 4; Indirect: Video; Notes: Asleep, Pre-O2, Stylette; Laryngoscopy Grade: 1; ETT Placement Verified By: Auscultation, Capnometry; Removal Date: 12/11/19; Removal Time: 165512/11/19 1354 by Patel Abernathy, RIVET HAMMER MACHINE OPERATOR 12/11/19 1656 by Patel Abernathy, RIVET HAMMER MACHINE OPERATOR Incision 12/11/19; 1412; knee ; Left total knee revision ; 11/29/21 (LDA cleanup utility RA#[id number]); 1715 (LDA cleanup utility RA#[id number]) 12/11/19 1412 by Ludmila Romero RN 11/29/21 1715 by Marion Vásquez documented in this encounter Social History Tobacco Use Types Packs/Day Years Used Date Smoking Tobacco: Former Cigarettes Q uit: 01/11/2001 Smokeless Tobacco: Never Alcohol Use Standard Drinks/Week Comments Yes 5 (1 standard drink = 0.6 oz pur e alcohol) Sex and Gender Information Value Date Recorded Sex Assigned at Not on file Gender Identity Not on file Sexual Orientation Not on file documented as of this encounter OR Notes * Anesthesia Postprocedure Evaluation - Lg Salazar MD - 12/11/2019 5:26 PM EDT Department of Anesthesiology Post-procedure Note Patient: Gunnar Morin Procedure Summary Date: 12/11/19 Room / Location: [facility] OR [address] [place] [address] MAIN OR Anesthesia Start: 1341 Anesthesia Stop: 1658 Procedures: @TOTAL KNEE REVISION ARTHROPLASTY, COMPLETE (WRVU 27.11) (Left Knee) MODIFIER ATTUNE REVISION ROTATING PLATFORM RP KNEE SYSTEM DEPUY (Left ) Diagnosis: Status post total left knee replacement (Left loose tibial component status post left total knee 2015) Surgeon: Roverto Bliss MD Responsible Provider: Lg Salazar MD Anesthesia Type: general ASA Status: 3 All Anesthesia Providers: Anesthesiologist: Lg Salazar MD RIVET HAMMER MACHINE OPERATOR: Patel Abernathy CRNA Vitals Value Taken Time BP 168/87 12/11/19 1715 Temp 36 ??C (96.8 ??F) 12/11/19 1702 Pulse 77 12/11/19 1725 Resp 11 12/11/19 1725 SpO2 95 % 12/11/19 1725 Pain Level 0 12/11/19 1702 Vitals shown include unvalidated device data. Patient Location: PACU/[facility] Level of Consciousness: Lethargic Pain Management: PONV: None Cardiovascular Status: At Baseline Respiratory Status: Supplemental O2 (NC or FM) Postoperative Fluid Status: Intravascular EUvolemia Possible Anesthetic Complications: NONE apparent at time of evaluation Final Primary Anesthesia Type: General (The anesthetic type performed was the same as planned.) Comments: I have evaluated the patient in the postoperative period. The time of my evaluation may not match the note time. The patient has no major complaints early in his postoperative course and there are no serious complications evident. * Anesthesia Preprocedure Evaluation - Martin, Lg Chavez MD - 12/10/2019 1:56 PM EDT Images from the original note were not included. Pre-Anesthesia Evaluation for: Gunnar Morin a 74 y.o. male. Procedure(s): @TOTAL KNEE REVISION ARTHROPLASTY, COMPLETE (WRVU 27.11) MODIFIER ATTUNE REVISION ROTATING PLATFORM RP KNEE SYSTEM 1spire Patient Active Problem List Diagnosis ??? Status post total left knee replacement ??? sp R TKA on 09/21/16 Butch ??? Status post total knee replacement ??? Monitoring for anticoagulant use ??? Status post total replacement of right hip ??? 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 H/O total hip arthroplasty ??? Morbid obesity with BMI of 40.0-44.9, adult Body mass index is 40.01 kg/(m^2). ??? 09/07/2015 S/P Left total knee arthroplasty (Dr. Rae), ? loose tibial component ??? DJD (degenerative joint disease) of knee ??? CAD (coronary artery disease) ??? Arthritis of knee ??? s/p revision R ELZBIETA with head-liner exchange 06/29/16 (Dr. Rae) with dislocation(12/2016) ??? Osteoarthritis of both knees ??? Bilateral knee pain Past Medical History: Diagnosis Date ??? Cancer melanoma penis-pt. here at [facility] [place] ??? Heart valve disease told he has a heart murmur ??? High blood pressure ??? Liver disease hepatitis A at age 17 ??? Motion sickness only when riding backwards in ambulance ??? Post-operative nausea and vomiting Past Surgical History: Procedure Laterality Date ??? CORONARY ANGIOPLASTY WITH STENT PLACEMENT ??? JOINT REPLACEMENT lf knee rt knee rt hip ??? PRO BIOPSY/EXCISION, LYMPH NODE(S) Bilateral 01/19/2017 BIOPSY OR EXCISION OF LYMPH NODE(S), OPEN, GROIN-TAMMY (WRVU 3.79) performed by Carina Patton MD at [facility] ??? PRO INTRAOP SENTINEL LYMPH ID W/DYE INJECTION Midline 01/19/2017 INTRAOPERATIVE ID (MAPPING) SENTINEL LYMPH NODE,INCLUDES INJECTION (WRVU 2.5) performed by Carina Patton MD at [facility] ??? PRO REVISE TOTAL HIP REPLACEMENT Right 06/29/2016 @TOTAL HIP REVISION ARTHROPLASTY, COMPLETE (WRVU 30.28) performed by Walter Rae MD at [facility] OR ??? PRO REVISE TOTAL HIP REPLACEMENT Right 12/01/2017 @TOTAL HIP REVISION ARTHROPLASTY, COMPLETE (WRVU 30.28) performed by Italo Hanna MD at [facility] OR ??? PRO TOTAL KNEE ARTHROPLASTY Left 09/07/2015 @TOTAL KNEE ARTHROPLASTY performed by Walter Rae MD at [facility] OR ??? PRO TOTAL KNEE ARTHROPLASTY Right 09/21/2016 @TOTAL KNEE ARTHROPLASTY (WRVU 20.72) performed by Walter Rae MD at [facility] OR ??? XR JOINT ASPIRATION - LARGE JOINT LEFT Left 09/12/2019 XR Fluoro Guided Joint Aspiration Large Left 09/12/2019 Saul Alan MD [facility] RAD XRAY Social History Tobacco Use ??? Smoking status: Former Smoker Types: Cigarettes Quit date: 01/11/2001 Years since quittin.9 ??? Smokeless tobacco: Never Used Substance Use Topics ??? Alcohol use: Yes Types: 1 Cans of beer per week Comment: occasional Social History Substance and Sexual Activity Drug Use No Allergies Allergen Reactions ??? Amoxicillin Trihydrate Hives Medications: MAR and/or home medications have been reviewed. Physical Exam: No data found. There is no height or weight on file to calculate BMI. Airway Assessment: Mallampati: II TM distance: >3 FB Neck ROM: full Cardiovascular Assessment: Rhythm: regular Rate: normal Pulmonary Assessment: breath sounds clear to auscultation Dental Assessment: (+) implants Misc Assessment: Patient is wearing No contact(s). IV access: Peripheral line Other exam findings: Large neck circumference Romeo above the upper lip Good mouth opening Large abdominal circumference Anesthesia Plan: ASA 3 general, with a(n) intravenous induction Gunnar Morin is a 74 y.o. male with DJD s/p TKA 2016 now with loose tibial component presenting for left TKA revision. PMH significant for morbid obesity (BMI 39), CAD s/p BMS x2 to LAD in 2016, former smoker, HTN, melanoma, motion sickness. EKG NSR. Cardiac cath 2016: Successful BMS insertion to the mid LAD lesion. Single discrete total occlusion of the proximal segment of RCA with collaterals from LAD and LCX. Anesthetic history: Easy mask, Gr1-2V w/ mac 4. Multiple spinals in past, though past 2 attempts unsuccessful requiring GA. Patient prefers general and does not want either spinal or regional nerve block. He did not feel that nerve blocks helped previously in terms of pain control. He denies history of PONV. Plan:GA, LMA vs ETT. Standard monitors, adequate IV access. Anesthesia Staff ([facility]) I have seen the patient. Patient was examined by Dr. Adler. I have reviewed the medical record and pertinent laboratory information. I have noted the major medical issues as outline in the problem list. We have reviewed risks from minor to major as outlined in the anesthesia consent form. We have highlighted risks related to airway management, obesity, and revision surgery. The patient is aware that our care model is based on a team and I will be working with either a RIVET HAMMER MACHINE OPERATOR or resident physician. A resident physician means a physician who is in training to be an anesthesiologist. The patient acknowledged these risks and would like to proceed with the anesthesia plan. He strongly endorses GA, no spinal or nerve block based on a poor prior experience. Region - Other Informed Consent: Anesthetic plan and risks discussed with patient. Plan discussed with attending and RIVET HAMMER MACHINE OPERATOR. PAT Clinic Note documented in this encounter Plan of Treatment Upcoming Encounters Date Type Department Care Team (Late st Contact Info) Description 10/31/2023 9:15 AM EDT Office Visit Dermatology at [facility] [address] [place] [address] Dawson Broderick MD [facility] DR [address] [facility] [address] 07/23/2024 9:30 AM EDT Office Visit Dermatology at [facility] [address] [place] [phone] Dawson Broderick MD [facility] DR MY[address] [facility] [address] documented as of this encounter Visit Diagnoses Not on filedocumented in this encounter Administered Medications Inactive Administered Medications - up to 3 most recent administrations Medication Order MAR Action Action Date Dose Rate Site clindamycin (CLEOCIN) 600mg in dextrose 5% 50mL 600 mg, Intravenous, EVERY 8 HOURS, 1 dose, First dose on Mon12/11/19 at 1100, Administer over 20 Minutes, Day of Surgery (Day of Procedure), Indication for (Active or Suspected): Prophylaxis Given 12/11/2019 2:01 PM EDT 600 mg dexamethasone (Decadron) injection PRN, Starting on Mon12/11/19 at 1359, Until Mon12/11/19 at 1659, Anesthesia Intra-op, Routine Given 12/11/2019 1:59 PM EDT 8 mg ePHEDrine 5 mg/mL multi-dose injection PRN, Starting on Mon12/11/19 at 1400, Until Mon12/11/19 at 1659, Anesthesia Intra-op, Routine Given 12/11/2019 4:20 PM EDT 10 mg Given 12/11/2019 4:13 PM EDT 10 mg Given 12/11/2019 4:03 PM EDT 10 mg fentaNYL (PF) 50 mcg/mL injection 50 mcg, Intravenous, EVERY 5 MIN PRN, Starting on Mon12/11/19 at 1039, Until Mon12/11/19 at 1835, Pain, or prior to injection of local anesthetic., Hold for respiratory rate less than 8 breaths per minute. (maximum dose 200 mcg), Day of Surgery (Day of Procedure), Routine Given 12/11/2019 1:50 PM EDT 100 mcg glycopyrrolate (ROBINUL) multi-dose injection PRN, Starting on Mon12/11/19 at 1633, Until Mon12/11/19 at 1659, Anesthesia Intra-op, Routine Given 12/11/2019 4:33 PM EDT 0.8 mg HYDROmorphone (DILAUDID) injection PRN, Starting on Mon12/11/19 at 1407, Until Mon12/11/19 at 1659, Anesthesia Intra-op, Routine Given 12/11/2019 3:03 PM EDT 1 mg Given 12/11/2019 2:07 PM EDT 1 mg lactated ringers infusion 1,000 mL, at 100 mL/hr, Intravenous, CONTINUOUS, Starting on Mon12/11/19 at 1100, Until Mon12/11/19 at 1835, Day of Surgery (Day of Procedure) New Bag 12/11/2019 3:50 PM EDT New Bag 12/11/2019 1:49 PM EDT New Bag 12/11/2019 11:24 AM EDT 1,000 mLs 100 mL/hr neostigmine (BLOXIVERZ) injection PRN, Starting on Mon12/11/19 at 1633, Until Mon12/11/19 at 1659, Anesthesia Intra-op, Routine Given 12/11/2019 4:33 PM EDT 5 mg ondansetron (ZOFRAN) injection PRN, Starting on Mon12/11/19 at 1359, Until Mon12/11/19 at 1659, Anesthesia Intra-op, Routine Given 12/11/2019 3:54 PM EDT 4 mg Given 12/11/2019 1:59 PM EDT 4 mg PHENYLephrine in NS (PF) (FIOR-SYNEPHRINE) 0.8 mg/10 mL (80 mcg/mL) multi-dose injection Syrg PRN, Starting on Mon12/11/19 at 1545, Until Mon12/11/19 at 1659, Anesthesia Intra-op, Routine Given 12/11/2019 4:16 PM EDT 80 mcg Given 12/11/2019 4:13 PM EDT 80 mcg Given 12/11/2019 4:08 PM EDT 80 mcg propofoL (Diprivan) 10 mg/mL bolus injection (Anesthesia) PRN, Starting on Mon12/11/19 at 1350, Until Mon12/11/19 at 1659, Anesthesia Intra-op Given 12/11/2019 1:54 PM EDT 50 mg Given 12/11/2019 1:52 PM EDT 100 mg Given 12/11/2019 1:50 PM EDT 200 mg rocuronium (ZEMURON) multi-dose injection PRN, Starting on Mon12/11/19 at 1359, Until Mon12/11/19 at 1659, Anesthesia Intra-op, Routine Given 12/11/2019 1:59 PM EDT 30 mg succinylcholine chloride (Quelicin) injection PRN, Starting on Mon12/11/19 at 1350, Until Mon12/11/19 at 1659, Anesthesia Intra-op, Routine Given 12/11/2019 1:50 PM EDT 200 mg documented in this encounter Care Teams Corporate Development Officer Relationship Specialty Start Date End Date Phoenix Guzmán DO [address] [place] [address] [place] [phone] PCP - General General Internal Medicine 02/20/15 documented as of this encounter
--- OUTSIDE RECORDS SUMMARY | 2023-10-23 09:04 | XMS_ITS | Encounter Summary ---
[place] [address] Care Team Providers Care Clarity Specialists Name Role Phone Phoenix Guzmán Primary Care Provider [phone] Reason for Referral * Diagnostic Test (Routine) - Closed Specialty Diagnoses / Procedures Referred By Omid shepherd Referred To Contact Radiology Diagnoses Status post total left knee replacement Procedures MRI Knee wo Contrast Left (Generic) Ramy Bolton MD [facility] [place] [address] [place] [address] Referral ID Status Reason Start Date Expiration Date V isits Requested Visits Authorized [id number] Closed Specialty Service Requested 02/20/2020 08/19/2021 1 1 Reason for Visit * Diagnostic Test (Routine) - Closed Specialty Diagnoses / Procedures Referred By Omid shepherd Referred To Contact Radiology Diagnoses Status post total left knee replacement Procedures MRI Knee wo Contrast Left (Generic) Ramy Bolton MD [facility] [place] [address] [facility] [place] [address] Referral ID Status Reason Start Date Expiration Date V isits Requested Visits Authorized [id number] Closed Specialty Service Requested 02/20/2020 08/19/2021 1 1 Encounter Details Date Type Department Care Team (Latest Contact Info) Description 03/15/2020 10:01 AM EST - 03/15/2020 11:59 PM [facility] Hospital [place] [address] Walter Rae MD [facility] [place] [address] 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 12/11/19 (Jevsevar) Discharge Disposition: Home Social History Tobacco Use Types Packs/Day Years Used Date Smoking Tobacco: Former Cigarettes Q uit: 01/11/2001 Smokeless Tobacco: Never Alcohol Use Standard Drinks/Week Comments Yes 5 (1 standard drink = 0.6 oz pur e alcohol) Sex and Gender Information Value Date Recorded Sex Assigned at Not on file Gender Identity Not on file Sexual Orientation Not on file documented as of this encounter Medications at Time of Discharge Medication Sig Dispensed Refills Start Date End Date oxyCODONE (Roxicodone) 5 mg Tablet Take 1-2 tablets by mouth every 4 hours as needed for Pain (acute post-op surgical pain). 20 tablet 12/12/2019 acetaminophen (Tylenol) 500 mg Tablet Take 2 tablets by mouth every 8 hours. Continue the Tylenol around the clock for 10 days after surgery, (12/21/2019). Then may take if needed per package insert. Do not take more than 3,000 mg of Tylenol in 24 hours. 12/12/2019 aspirin EC 81 mg Tablet, Delayed Release (E.C.) Take 1 tablet by mouth 2 times daily. Take with food for 30 days after surgery. Last day = 01/10/2020. 12/12/2019 gabapentin (Neurontin) 300 mg Capsule Take 1 capsule by mouth nightly. Take nightly before bed for sleep for 4 weeks after surgery. 30 capsule 12/12/2019 naproxen (NAPROSYN) 500 mg Tablet Take 1 tablet by mouth 2 times daily (with meals). Take with food for up to 6 weeks after surgery. 84 tablet 12/12/2019 polyethylene glycoL (Miralax) 17 gram Powder in Packet Take 17 g by mouth 2 times daily. 12/12/2019 senna-docusate (Pericolace) 8.6-50 mg Tablet Take 2 tablets by mouth 2 times daily. 12/12/2019 omeprazole (PriLOSEC) 20 mg Capsule, Delayed Release(E.C.) Take 1 capsule by mouth daily. Take daily while taking naproxen 42 capsule 12/12/2019 ezetimibe (Zetia) 10 mg Tablet 07/11/2019 tacrolimus (PROTOPIC) 0.03 % Ointment Apply nightly to affected areas on face 30 g 07/19/2018 hydrocortisone 2.5 % Cream Apply topically to the affected areas on the face once daily as needed. 30 g 07/27/2017 carvedilol (COREG) 12.5 mg Tablet Take 12.5 mg by mouth 2 times daily (with meals). 4 05/31/2016 nitroGLYcerin (NITROSTAT) 0.4 mg Tablet, Sublingual Place 1 tablet under the tongue every 5 minutes as needed for Chest pain. 90 tablet 12 07/11/2015 clindamycin (CLEOCIN) 150 mg Capsule See Admin Instructions. Reported on 07/28/2016 04/13/2015 documented as of this encounter Plan of Treatment Upcoming Encounters Date Type Department Care Team (Late st Contact Info) Description 10/31/2023 9:15 AM EDT Office Visit Dermatology at [facility] [address] [place] [address] Dawson Broderick MD [facility] [address] MYKE [place] [address] 07/23/2024 9:30 AM EDT Office Visit Dermatology at [facility] [address] [place] [address] Dawson Broderick MD [facility] [address] [place] [address] documented as of this encounter Procedures Procedure Name Priority Date/Time Associated Diagnosis Comments MRI KNEE LEFT WO CONTRAST Routine 03/15/2020 11:42 AM EST 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 ??Status post total knee arthroplasty with constellation of MR findings consistent with high-grade tearing of the extensor mechanism structures, including high-grade tear of the distal rectum distal rectus femoris, full thickness rupture of the vastus medialis component of the quadriceps, and full-thickness tear at the patellar attachment of the medial patellofemoral ligament resulting in a 1.8 cm focal defect. 2. ??Joint effusion with synovitis and debris. Some of this fluid appears to communicate with the subcutaneous tissues of the anterior knee through the defect of the patellar attachment of the medial patellofemoral ligament. Thank you for letting us participate in the care of this patient. For questions regarding this report, please contact the number below. ? Electronically signed by: Alannah Hernandez MD, [facility] ([phone]), at 03/16/2020 9:27 AM Narrative 03/16/2020 9:27 AM EST EXAMINATION: MRI KNEE WO CONTRAST LEFT (GENERIC) CLINICAL HISTORY: s/p revision L TKA, now with patella riding laterally, suspect medial retinaculum tear. ??Please perform metal suppression sequences. (as entered by ordering provider in the order requisition) COMPARISON: Left knee radiograph 01/23/2020 TECHNIQUE: MRI of the Left knee was performed with metal suppression techniques. Sequences include axial T1 and STIR sequences in all 3 planes. FINDINGS: Ligaments and tendons: The anterior and posterior cruciate ligaments are not well-visualized in this patient with a total knee arthroplasty. ??No high-grade disruption of the superficial medial collateral ligament.. ??The iliotibial band, fibular collateral ligament, and biceps tendon are intact. The popliteus tendon is not optimally visualized due to metal artifact hardware. Extensor mechanism: The patellar tendon is intact. Partial visualization of high-grade tearing of the rectus femoris contribution to the quadriceps tendon and full-thickness disruption of the vastus medialis contribution to the quadriceps tendon (series 4, image 3). The vastus intermedius tendon contribution to the quadriceps is not entirely included are visualized on this study.. There is complete disruption of the medial patellofemoral ligament and medial retinaculum, particularly at the patellar attachment (series 4, image 13, where fluid signal and debris to communicate with the subcutaneous tissues through the defect (series 4, image 11). The gap at the patellar attachment of the medial patellofemoral ligament measures 1.8 cm. Scarring and susceptibility artifact within Hoffa's fat pad is consistent with prior surgery.. Bones, cartilage and joint: There is a large knee joint effusion with synovitis and debris.. Status post total knee arthroplasty. Metal artifact limits evaluation of the immediately surrounding bone. In the visualized portions of the fibula and distal femur, no acute fracture is seen. ?? Extra-articular: No Barkley's cyst. Diffuse fatty infiltration of all visualized muscles. Procedure Note Alannah Hernandez MD - 03/16/2020 EXAMINATION: MRI KNEE WO CONTRAST LEFT (GENERIC) CLINICAL HISTORY: s/p revision L TKA, now with patella ridinglaterally, suspect medial retinaculum tear. Please perform metal suppressionsequences. (as entered by ordering provider in the order requisition) COMPARISON: Left knee radiograph 01/23/2020 TECHNIQUE: MRI of the Left knee was performed with metal suppressiontechniques. Sequences include axial T1 and STIR sequences in all 3 planes. FINDINGS: Ligaments and tendons: The anterior and posterior cruciate ligaments arenot well-visualized in this patient with a total knee arthroplasty. Nohigh-grade disruption of the superficial medial collateral ligament.. The iliotibialband, fibular collateral ligament, and biceps tendon are intact. The popliteustendon is not optimally visualized due to metal artifact hardware. Extensor mechanism: The patellar tendon is intact. Partial visualizationof high-grade tearing of the rectus femoris contribution to the quadricepstendon and full-thickness disruption of the vastus medialis contribution to the quadriceps tendon (series 4, image 3). The vastus intermedius tendon contribution to the quadriceps is not entirely included are visualized onthis study.. There is complete disruption of the medial patellofemoral ligamentand medial retinaculum, particularly at the patellar attachment (series 4,image 13, where fluid signal and debris to communicate with the subcutaneoustissues through the defect (series 4, image 11). The gap at the patellarattachment of the medial patellofemoral ligament measures 1.8 cm. Scarring andsusceptibility artifact within Hoffa's fat pad is consistent with prior surgery.. Bones, cartilage and joint: There is a large knee joint effusion withsynovitis and debris.. Status post total knee arthroplasty. Metal artifact limits evaluation of the immediately surrounding bone. In the visualized portionsof the fibula and distal femur, no acute fracture is seen. Extra-articular: No Barkley's cyst. Diffuse fatty infiltration of allvisualized muscles. IMPRESSION 1. Status post total knee arthroplasty with constellation of MRfindings consistent with high-grade tearing of the extensor mechanism structures, including high-grade tear of the distal rectum distal rectus femoris,full thickness rupture of the vastus medialis component of the quadriceps,and full-thickness tear at the patellar attachment of the medialpatellofemoral ligament resulting in a 1.8 cm focal defect. 2. Joint effusion with synovitis and debris. Some of this fluid appearsto communicate with the subcutaneous tissues of the anterior knee throughthe defect of the patellar attachment of the medial patellofemoral ligament. Thank you for letting us participate in the care of this patient. Forquestions regarding this report, please contact the number below. 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
--- OUTSIDE RECORDS SUMMARY | 2023-10-23 09:04 | XMS_ITS | Encounter Summary ---
Author Organization [facility] [place] [address] Care Team Providers Care Coffee Taster Name Role Phone Phoenix Guzmán DO Primary Care Provider [phone] Reason for Visit * Reason Comments Skin Check Encounter Details Date Type Department Care Team (Late st Contact Info) Description 09/26/2019 9:45 AM EDT Office Visit Dermatology at [facility] [address] [place] [address] Dawson Broderick MD [facility] DR MYKE [facility] [address] History of melanoma; Multiple benign nevi; SK (seborrheic keratosis); Lichen simplex chronicus Social History Tobacco Use Types Packs/Day Years Used Date Smoking Tobacco: Former Cigarettes Q uit: 01/11/2001 Smokeless Tobacco: Never Alcohol Use Standard Drinks/Week Comments Yes 0 (1 standard drink = 0.6 oz pur e alcohol) occasional Sex and Gender Information Value Date Recorded Sex Assigned at Not on file Gender Identity Not on file Sexual Orientation Not on file documented as of this encounter Progress Notes * Dawson Broderick MD - 09/26/2019 9:45 AM EDT Images from the original note were not included. Gunnar Tomin 09/26/2019 [id number] Kandy Broderick MD ([id number]) Chief Problem: 1. Pigmented Lesion and Skin Cancer Examination , Full examination today 2. 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 History: 74 y.o. male. Established patient to me. No significant changes in health or medications since last visit 01/10/2019. Patient presents here today for a total body skin examination with history as listed above. No specific areas of concern today. Medications: reviewed All: reviewed Review of Systems: Feels well, no fatigue, no weight loss, no other skin concerns. No fever, cough or shortness of breath. Current Outpatient Medications on File Prior to Visit Medication Sig Dispense Refill ??? ezetimibe (Zetia) 10 mg Tablet ??? tacrolimus (PROTOPIC) 0.03 % Ointment Apply nightly to affected areas on face (Patient not taking: Reported on 09/12/2019) 30 g 0 ??? acetaminophen (TYLENOL) 500 mg Tablet Take 2 tablets by mouth every 8 hours. Continue the Tylenol around the clock for 10 days after surgery, (12/11/2017). Then may take if needed per package insert. Do not take more than 3,000 mg of Tylenol in 24 hours. ??? hydrocortisone 2.5 % Cream Apply topically to the affected areas on the face once daily as needed. (Patient not taking: Reported on 11/09/2017) 30 g 0 ??? aspirin 81 mg Tablet, Delayed Release (E.C.) Take 81 mg by mouth daily. ??? carvedilol (COREG) 12.5 mg Tablet Take 12.5 mg by mouth 2 times daily (with meals). 4 ??? nitroGLYcerin (NITROSTAT) 0.4 mg Tablet, Sublingual Place 1 tablet under the tongue every 5 minutes as needed for Chest pain. 90 tablet 12 ??? clindamycin (CLEOCIN) 150 mg Capsule See Admin Instructions. Reported on 07/28/2016 No current facility-administered medications on file prior to visit. Examination: Patient was alert, well-appearing and in no noticeable distress. Patient asked to undress to their comfort level. Provider preference is to take everything off. If clothing is left on we will not look there. Patient chose to take off underwear. A full body skin exam was performed. This includes examination of the skin of the face, ears, scalp, neck, chest, axillae, back, abdomen, left and right upper and lower extremities, hands, and feet. The genitalia were also examined with patient consent Specific findings: 1. History of 1.76mm melanoma located on the distal right shaft of penis s/p excision (12/2016) and imiquimod immunotherapy x 12 weeks - Hampton lamp negative - No signs of recurrence - No inguinal lymphadenopathy noted 2. Benign appearing nevi located on the trunk and extremities 3. Seborrheic keratoses located on the trunk and extremities 4. 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 Photo taken and charted with patient consent. Assessment/Diagnosis: 1. History of melanoma, 1.76mm 2. Benign appearing nevi, patient reassured 3. Seborrheic keratoses, patient reassured 4. 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 - Specifically discussed: 1. Sun avoidance re-emphasized, sunscreen, hats, clothing as always. ?? Follow up: 6 months for skin cancer exam, sooner if needed. I am documenting this encounter acting as the scribe for and in the presence of CHINA Ziegler LPN I performed the above scribed service and agree with the accuracy of the documentation in this encounter, MD Kandy Carmona M.D. Section of Dermatology documented in this encounter Plan of Treatment Upcoming Encounters Date Type Department Care Team (Late st Contact Info) Description 10/31/2023 9:15 AM EDT Office Visit Dermatology at [facility] [address] [place] [address] Dawson Broderick MD [facility] DR MYKE [facility] [address] 07/23/2024 9:30 AM EDT Office Visit Dermatology at [facility] [address] [place] [address] Dawson Broderick MD [facility] DR MYKE [facility] [address] documented as of this encounter Visit Diagnoses Diagnosis History of melanoma Personal history of malignant melanoma of skin Multiple benign nevi Benign neoplasm of skin, site unspecified SK (seborrheic keratosis) Other seborrheic keratosis Lichen simplex chronicus Lichenification and lichen simplex chronicus documented in this encounter Care Teams Coffee Taster Relationship Specialty Start Date End Date Phoenix Guzmán DO [address] [place] [address] [place] [address] PCP - General General Internal Medicine 02/20/15 documented as of this encounter
--- OUTSIDE RECORDS SUMMARY | 2023-10-23 09:04 | XMS_ITS | Encounter Summary ---
[place] [address] Care Team Providers Care Rehabilitation Engineer Name Role Phone Phoenix Guzmán DO Primary Care Provider [phone] Encounter Details Date Type Department Care Team (Late st Contact Info) Description 12/01/2020 9:00 AM EDT Office Visit Dermatology at [facility] [address] [place] [address] Dawson Bolton MD [facility] [address] MY[address] [place] [address] Actinic keratosis; History of melanoma; Venous lowe of lip; Tinea pedis, unspecified laterality Social History Tobacco Use Types Packs/Day Years [...] as of this encounter Progress Notes * Cleo Murcia CMA - 12/01/2020 9:00 AM EDT Images from the original note [...] imiquimod Immunotherapy??for 12 weeks Dysplastic nevi Mild DN on [...] of Present Illness: Gunnar Morin is a 75 y.o. year old. Patient returns to clinic today for a full skin exam. Patient denies any specific skin concerns today; no lesions that are new, changing or symptomatic. Last visit at [facility] Derm: 06/02/2020 Last visit with this provider: 06/02/2020 Medications: Reviewed in eD-H Allergies: Reviewed in eD-H Skin Examination: Full skin examination: Patient asked to undress to their comfort level. Verbalized that the provider's preference is that patient removal all clothing and that the provider will not examine areas patient elects to keep covered. Examination of the scalp, hair, head, face, ears, neck, chest, axillae,abdomen, back, buttocks, genitalia, and upper and lower extremities. Assessment/Plan # History of 1.76mm melanoma located on the distal right shaft of penis s/p excision (12/2016) and imiquimod immunotherapy x 12 weeks - Hampton lamp negative - No signs of recurrence - No inguinal lymphadenopathy noted - Continue clinical monitoring # History of mildly dysplastic nevus s/p shave removal 07/25/2017 - well healed scar on chest - NER - Continue clinical monitoring # Tinea Pedis - b/l feet - Benign. Not bothersome to patient - No treatment necessary # Venous Lowe - right lower roseanne lip - Benign. No treatment necessary # Actinic Keratosis - [place], hyperkeratotic slightly irregular papule on the frontal scalp - Combined decision to treat with cryotherapy Procedure Note: Procedure: Destruction of lesions with cryotherapy. Number: 1 Location: as above Discussed procedure and expectations including risks (including risk of hypopigmentation) and benefits. Verbal consent obtained. Frozen with LN2, 15-30 second thaw time, TWICE. There were no complications; the patient tolerated the procedure well. Post-procedure expectations and wound care were reviewed. Other items to document in the assessment/plan if relevant ??? N/A RTC: 6 months for FSE []Note routed to executive legal secretary []Recall has been placed in scheduling system [x]Appointment scheduled at checkout Scribe attestation: ABE Camacho who has performed the documentation for this encounter in the presence of and acting as a scribe for DAWSON BOLTON MD. I performed the above scribed service and agree with the accuracy of the documentation in this encounter. Reviewed and signed by: DAWSON BOLTON MD Dermatology [facility] documented in this encounter Plan of Treatment Upcoming Encounters Date Type Department Care Team (Late st Contact Info) Description 10/31/2023 9:15 AM EDT Office Visit Dermatology at [facility] [address] [place] [address] Dawson Bolton MD [facility] [address] MYKE [place] [address] 07/23/2024 9:30 AM EDT Office Visit Dermatology at [address] [place] [address] Dawson Bolton MD [facility] [address] MYKE [place] [address] documented as of this encounter Visit Diagnoses Diagnosis Actinic keratosis History of melanoma Personal history of malignant melanoma of skin Venous lowe of lip Hemangioma of skin and subcutaneous tissue Tinea pedis, unspecified laterality documented in this encounter Care Teams Rehabilitation Engineer Relationship Specialty Start Date End Date Phoenix Guzmán DO [address] [place] [address] [place] [phone] PCP - General General Internal Medicine 02/20/15 documented as of this encounter
--- OUTSIDE RECORDS SUMMARY | 2023-10-23 09:04 | XMS_ITS | Encounter Summary ---
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 His history is such that he had a left total knee performed in September 2015 that was found to have a loose tibial component. It was revised byDr. Grady on December 11, 2019 due to my illness and being away. This was an isolated tibial revision at that time. Since that time he has progressed. He has some pain with extension. He has significant swelling about the knee still at this point 3 months out. An MRI was performed to assess his extensor mechanism. His extensor mechanism was found to be disrupted in the area of the VMO and distal quad. He is able to straight leg raise without a lag. This is painful however. He also has significant swelling and MRI findings of joint fluid in the subcutaneous tissues. I did discussion with he and his today regarding this finding. I discussed that I think it would be most reasonable to go back and try to repair his disruption. I discussed that this would be mostly superficial surgery without any need to rearrange any of the hardware below or implants. I discussed the utilization of same-day surgery. I discussed like to do his preoperative work-up when he arise. I think that by repairing the retinaculum this will provide better extension with less pain and will reduce the volume of subcutaneous fluid. He is in agreement this plan. Will attempt to move forward on April 08 after the holidays. documented in this encounter Plan of Treatment Upcoming Encounters Date Type Department Care Team (Late st Contact Info) Description 10/31/2023 9:15 AM EDT Office Visit Dermatology at [facility] [address] [place] [address] Dawson Broderick MD [facility] [place] [place] [address] 07/23/2024 9:30 AM EDT Office Visit Dermatology [facility] [address] [place] [address] Dawson Broderick MD [facility] [place] [address] documented as of this encounter Visit Diagnoses Diagnosis 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
--- OUTSIDE RECORDS SUMMARY | 2023-10-23 09:04 | XMS_ITS | Encounter Summary ---
[place] [address] Care Team Providers Care Farmworker Chicken Farm Name Role Phone Phoenix Guzmán DO Primary Care Provider [phone] Encounter Details Date Type Department Care Team (Late st Contact Info) Description 10/14/2020 Telephone Dermatology at [facility] [address] [place] [address] Dawson Broderick MD [facility] [address] [place] [address] Social History Tobacco Use Types Packs/Day Years Used Date Smoking Tobacco: Former Cigarettes Q uit: 01/11/2001 Smokeless Tobacco: Never Alcohol Use Standard Drinks/Week Comments Yes 5 (1 standard drink = 0.6 oz pur e alcohol) Sex and Gender Information Value Date Recorded Sex Assigned at Not on file Gender Identity Not on file Sexual Orientation Not on file documented as of this encounter Miscellaneous Notes * Telephone Encounter - Deloris Valera Tiki - 10/14/2020 10:41 AM EDT CALLED PATIENT TO CANCEL APPT ON 12/08 WITH [facility]. LEFT [id number] FOR CALLBACK TO RESCHEDULE. documented in this encounter Plan of Treatment Upcoming Encounters Date Type Department Care Team (Late st Contact Info) Description 10/31/2023 9:15 AM EDT Office Visit Dermatology at [facility] [address] [place] [address] Dawson Broderick MD [facility] [address] [place] [address] 07/23/2024 9:30 AM EDT Office Visit Dermatology at [facility] [address] [place] [address] Dawson Broderick MD [facility] [place] [address] documented as of this encounter Visit Diagnoses Not on filedocumented in this encounter Care Teams Farmworker Chicken Farm Relationship Specialty Start Date End Date Phoenix Guzmán DO [address] [place] [address] [place] Laboy [phone] PCP - General General Internal Medicine 02/20/15 documented as of this encounter
--- OUTSIDE RECORDS SUMMARY | 2023-10-23 09:04 | XMS_ITS | Encounter Summary ---
[place] [address] Care Team Providers Care Dial Marker Name Role Phone Phoenix Guzmán DO Primary Care Provider [phone] Reason for Visit * Reason Comments Follow-up Left quadriceps tend on repair with arthrotomy Encounter Details Date Type Department Care Team (Late st Contact Info) Description 06/02/2020 10:30 AM EST Office [place] [address] Shena Villela PA [facility] DR ORTHOPA[place] [address] Rupture of left quadriceps tendon, subsequent encounter Social History Tobacco Use Types Packs/Day [...] on file documented as of this encounter Last Filed Vital Signs Vital Sign Reading Time Taken Comments Blood Pressure 139/83 06/02/2020 10:15 AM EST Pulse 92 06/02/2020 10:15 AM EST Temperature - - Respiratory Rate - - Oxygen Saturation - - Inhaled Oxygen Concentration - - Weight 131.1 kg (289 lb) 06/02/2020 10:15 AM EST reportedc Height 182.9 cm (6' 0.01) 06/02/2020 10:[address] reported Body Mass Index 39.18 06/02/2020 10:15 AM EST documented in this encounter Progress Notes * Shena Villela PA - 06/02/2020 10:30 AM EST Arthroplasty/Orthopaedic History: 1. s/p L TKA 09/07/2015 (Dr. Rae) 2. s/p R TKA on 09/21/16 Butch 3. s/p revision R ELZBIETA with head-liner exchange 06/29/16 (Dr. Rae) with dislocation (12/2016) 4. S/p revision RTHA with reclaim and dual mobility 12/01/17 Dr. Hanna 5. 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 S/p L TKA Quadriceps Tendon Repair 04/08/2020 Dr. Rae HPI: Gunnar Morin is a very pleasant 75 y.o. male with significant arthroplasty history who returns to clinic for a hospital check two weeks after undergoing left TKA quadriceps tendon repair. At his last visit with Dr. Rae and Dr. Couch, it was recommended that he remain in the Hui bracewith his knee in extension. Gunnar was unwilling to do this however. He and Dr. Rae agreed that he would not use the brace, however he would keep his knee in extension for as much time as he could. Since he was last in he has been trying to keep his leg straight as much as possible. He waited until 05/18/20 to start working more on his range of motion and ambulating stairs. He is able to ambulate the stairs with no real pain. He does, hopowever continue to have some swelling and would like to know when this will dissipate. He denies fever, chills, drenching night sweats. ROS: See above. BP 139/83 (BP Location (NBP): Right arm, Patient Position: Sitting, BP Cuff Sizes: Large Adult (32-43 cm)) Pulse 92 Ht 182.9 cm (6' 0.01) Comment: reported Wt 131.1 kg (289 lb) Comment: reportedc BMI 39.18 kg/m?? Physical Exam: Well-appearing male in no acute distress. Alert and Oriented x 3 and answers all questions appropriately. The incision is well healed, with no signs of infection. Gracey removed in clinic today. Knee Exam: Left No erythema Moderate global knee edema Knee ROM: Extension:0 Able to straight leg raise. Flexion: 125 Alignment: 0-4 degrees Neutral Stability: A/P Translation <5mm Varus <5mm Valgus <5mm Extension La degrees or less Patella Tracking: Normal Pulses Palpable: Left PT:Yes Left DP:Yes Motor/Sensory: Distal Motor: Normal Distal Sensory: Normal Quadriceps Strength: 5 Questionnaire Responses: [facility] Surgical Postop Visit 06/01/2020 PROMIS-10 General Health Very Good PROMIS-10 Quality of Life Very Good PROMIS-10 Physical Health Very Good PROMIS-10 Mental Health Very Good PROMIS-10 Social Activity Very Good PROMIS-10 Everyday Activities Completely PROMIS-10 Pain 2 PROMIS-10 Fatigue None PROMIS-10 Social Roles Very Good PROMIS-10 Anxious or Depressed Never PROMIS PHYSICAL HEALTH SCORE 57.7 PROMIS MENTAL HEALTH SCORE 56 HOOS JR Scores - KOOS JR Scores - Problems with surgical incision/wound after surgery No Gone to ER since knee surgery No Where was ER located? - Date of ER visit - Reason for ER visit - Admitted to hospital since recent ortho surgery No Hospital - Date of admission - Discharge date - Reason you went to hospital - Additional surgery on same body part No Hospital - Surgeon - Date of surgery - Reason for surgery - TKA Grade - Pain in other KNEE - ELZBIETA Grade - Pain in other HIP - Back pain at this moment - Satisfaction with Treatment Satisfied Choose Same Treatment Again Probably yes Orthopeadics [facility] Response 02/14/2020 HOOS JR Scores 100 KOOS JR Scores - Spine [facility] Response 02/14/2020 HOOS JR Scores 100 KOOS JR Scores - ASSESSMENT/PLAN: Mr. Morin is a 75 y.o. male with significant arthroplasty history : 1.??s/p L TKA 09/07/2015??(Dr. Rae) 2. s/p R TKA on 09/21/16 Butch 3. s/p revision R ELZBIETA with head-liner exchange 06/29/16 (Dr. Rae) with dislocation (12/2016) 4. S/p revision RTHA with reclaim and dual mobility 12/01/17 Dr. Hanna 5. 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 S/p L TKA Quadriceps Tendon Repair 04/08/2020 Dr. Rae When I came into the exam room today, Gunnar was sitting with his left knee flexed at roughly 125. He reports that he has been ambulating normally and now able to go up and down stairs. XR were reviewed showing well placed TKA prosthesis with no complication noted. The plan, per Dr. Couch and Dr. Wing's note on 04/23/20 was to begin his knee ROM at this appointment. Gunnar is already able to easily flex his knee to 125 and has a good straight leg raise. We discussed gradually increasing his strength. We reviewed my concern with him attempting abrupt deep squats or flexion. We reviewed the concerns with rupturing the fixation of the quadricept tendon. I would like him to work on strengthening with guidance from physical therapy. Unfortunately, he is unwillingto work with physical therapy. He is confident he can strengthen his quads on his own. We reviewed rotary follow up for his bilateral TKA and right ELZBIETA 2 years FU for left TKA, Right TKA, Right ELZBIETA Shena Villela PA-C documented in this encounter Plan of Treatment Upcoming Encounters Date Type Department Care Team (Late st Contact Info) Description 10/31/2023 9:15 AM EDT Office Visit Dermatology at [facility] [address] [place] [address] Dawson Broderick MD [facility] [address] [place] [address] 07/23/2024 9:30 AM EDT Office Visit Dermatology at [facility] [address] [place] [address] Dawson Broderick MD [facility] [place] [place] [address] documented as of this encounter Results * XR Knee 1-2 Views Left (Generic) (06/02/2020 9:33 AM EST) Anatomical Region Laterality Modality Knee Left Digital Radiogra phy Impressions 06/02/2020 10:19 AM EST No complication involving the left knee prosthesis. Thank you for letting us participate in the care of this patient. For questions regarding this report, please contact the number below. ? Electronically signed by: Geraldo Lau MD, [facility] ([phone]), at 06/02/2020 10:19 AM Narrative 06/02/2020 10:19 AM EST EXAMINATION: XR KNEE 1-2 VIEWS LEFT (GENERIC) CLINICAL HISTORY: LEFT KNEE PAIN TECHNIQUE: Left knee AP and lateral COMPARISON: January 23, 2020 FINDINGS: A total left knee prosthesis is present. This is a revision prosthesis with a long stemmed tibial component. No periprosthetic lucency or periprosthetic fracture is present. The position of the prosthesis is unchanged. There is a large amount of soft tissue swelling though diminished from the prior study. Procedure Note Geraldo Lau MD - 06/02/2020 EXAMINATION: XR KNEE 1-2 VIEWS LEFT (GENERIC) CLINICAL HISTORY: LEFT KNEE PAIN TECHNIQUE: Left knee AP and lateral COMPARISON: January 23, 2020 FINDINGS: A total left knee prosthesis is present. This is a revision prosthesiswith a long stemmed tibial component. No periprosthetic lucency orperiprosthetic fracture is present. The position of the prosthesis is unchanged. There is a large amount of soft tissue swelling though diminished from theprior study. IMPRESSION No complication involving the left knee prosthesis. Thank you for letting us participate in the care of this patient. Forquestions regarding this report, please contact the number below. Walter Rae MD IMG DX ORDERABLES documented in this encounter Visit Diagnoses Diagnosis Rupture of left quadriceps tendon, subsequent encounter Rupture of left quadriceps tendon, subsequent encounter documented in this encounter Care Teams Dial Marker Relationship Specialty Start Date End Date Phoenix Guzmán DO [address] [place] [address] [place] [phone] PCP - General General Internal Medicine 02/20/15 documented as of this encounter
--- OUTSIDE RECORDS SUMMARY | 2023-10-23 09:04 | XMS_ITS | Encounter Summary ---
Author Organization [facility] [place] [address] Care Team Providers Care Rehab Trainer Name Role Phone Phoenix Guzmán Primary Care Provider [phone] Encounter Details Date Type Department Care Team (Late st Contact Info) Description 12/07/2021 Telephone Dermatology at [facility] [address] [place] [address] Dawson Broderick MD [facility] [address] [place] [address] Social History Tobacco Use Types Packs/Day Years [...] encounter Miscellaneous Notes * Telephone Encounter - Gini Stephenson - 12/07/2021 10:24 AM EDT TRINA FAIRBANKS 12/14 - SPOKE TO PT WILL CALL BACK [phone] IF HE IS NOT OK WITH SEEING DR. VIDALES ON 01/04 AND I WILL ADD HIM TO MY WAITLIST documented in this encounter Plan of Treatment Upcoming Encounters Date Type Department Care Team (Late st Contact Info) Description 10/31/2023 9:15 AM EDT Office Visit Dermatology at [facility] [address] [place] [address] Dawson Broderick MD [facility] [place] [address] 07/23/2024 9:30 AM EDT Office Visit Dermatology at [facility] [address] [place] [address] Dawson Broderick MD [facility] [place] [address] documented as of this encounter Visit Diagnoses Not on filedocumented in this encounter Care Teams Rehab Trainer Relationship Specialty Start Date End Date Phoenix Guzmán DO [address] [place] [address] [place] [phone] PCP - General General Internal Medicine 02/20/15 documented as of this encounter
--- OUTSIDE RECORDS SUMMARY | 2023-10-23 09:04 | XMS_ITS | Encounter Summary ---
[place] [address] Care Team Providers Care Air Hole Driller Name Role Phone Phoenix Guzmán Primary Care Provider [phone] Encounter Details Date Type Department Care Team (Late st Contact Info) Description 11/29/2019 [place] [address] Jaz Arana Social History Tobacco Use Types Packs/Day Years [...] encounter Miscellaneous Notes * Telephone Encounter - Jaz Malin - 11/29/2019 9:59 AM EDT Left message to schedule preop covid 19 test for surgery 12/10 documented in this encounter Plan of Treatment Upcoming Encounters Date Type Department Care Team (Late st Contact Info) Description 10/31/2023 9:15 AM EDT Office Visit Dermatology at [facility] [address] [place] [address] Dawson Broderick MD [facility] [address] [place] [address] 07/23/2024 9:30 AM EDT Office Visit Dermatology at [facility] [address] [place] [address] Dawson Broderick MD [facility] [place] [address] documented as of this encounter Visit Diagnoses Not on filedocumented in this encounter Care Teams Air Hole Driller Relationship Specialty Start Date End Date Phoenix Guzmán DO [address] [place] [address] [place] [address] PCP - General General Internal Medicine 02/20/15 documented as of this encounter
--- OUTSIDE RECORDS SUMMARY | 2023-10-23 09:04 | XMS_ITS | Encounter Summary ---
[place] [address] Care Team Providers Care Senior Linux Engineer Name Role Phone Phoenix Guzmán DO Primary Care Provider [phone] Reason for Visit * Reason Comments Skin Check Encounter Details Date Type Department Care Team (Late st Contact Info) Description 01/25/2022 9:30 AM EDT Office Visit Dermatology at [facility] [address] [place] [address] Dawson Bolton MD [facility] [place] [address] History of melanoma; Dermatitis; Seborrheic keratoses; Seborrheic keratosis; Seborrheic keratosis, inflamed; Tinea pedis, unspecified laterality Social History Tobacco [...] Progress Notes * Dawson Bolton MD - 01/25/2022 9:30 AM EDT Images from the original note were not included. DEPARTMENT OF DERMATOLOGY Medical Dermatology Clinic Provider: DAWSON BOLTON MD Patient's preferred name Artemio Maher Preferred contact method for results []?myDH []?Letter []?Phone: home Detailed phone message OK? yes Are [...] of Present Illness: Gunnar Morin is a 76 y.o. Patient returns to clinic today for a fullskin exam and he notes that the protopic clears the scaling on the face but it comes back and scales. Full skin examination, focused on penile melanoma site, scar. Last visit at Dermatology: 06/08/2021 Last visit with this provider: Visit date [...] with the exception ofthe findings below. 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 # History of mildly dysplastic nevus s/p shave removal 07/25/2017??- well healed scar on chest - NER - Continue clinical monitoring?? #. Dermatitis - Start Rx: Clobetasol Cream Apply topically to areas of scale and itch neck down BID for up to twoweeks and take 1 week off, repeat as needed #. Seborrheic keratoses - stuck on brown/walker waxy papules on the trunk and extremities. - Reassured of the benign nature of these lesions. No treatment needed. #. Inflamed seborrheic keratosis - stuck on rough papule with erythema located on the left medial canthus - Reassured of the benign nature of these lesions, given irritation plan on treatment with LN2 today Destruction with Liquid Nitrogen - two freeze thaw cycles Number of lesions - 1 The patient's verbal consent for liquid nitrogen was obtained. Risks and benefits were explained. The possible need for additional liquid nitrogen was reviewed. Risks of increased pigmentation, decreased pigmentation, blister formation, scar, infection, pain, and recurrence were all discussed. The patient tolerated the procedure well. Wound care was reviewed. # Tinea Pedis - b/l feet - Benign. Not bothersome to patient - No treatment necessary Other: ??? N/A RTC: 6 months for FSE []Note routed to elementary secretary []Recall placed in scheduling system [x]Appointment scheduled at checkout Scribe attestation: Humaira Spivey LPN has performed the documentation for this encounter in thepresence of and acting as a scribe for DAWSON BOLTON MD. I performed the above scribed service and agree with the accuracy of the documentation in this encounter. Reviewed and signed by: DAWSON BOLTON MD Dermatology [facility] documented in this encounter Plan of Treatment Upcoming Encounters Date Type Department Care Team (Late st Contact Info) Description 10/31/2023 9:15 AM EDT Office Visit Dermatology at [facility] [address] [place] [address] Dawson Bolton MD [facility] [place] [address] 07/23/2024 9:30 AM EDT Office Visit Dermatology at [facility] [address] [place] [address] Dawson Bolton MD [facility] [place] [address] documented as of this encounter Visit Diagnoses Diagnosis History of melanoma Personal history of malignant melanoma of skin Dermatitis Contact dermatitis and other eczema, due to unspecified cause Seborrheic keratoses Seborrheic keratosis Other seborrheic keratosis Seborrheic keratosis, inflamed Inflamed seborrheic keratosis Tinea pedis, unspecified laterality documented in this encounter Care Teams Senior Linux Engineer Relationship Specialty Start Date End Date Phoenix Guzmán DO [address] [place] [address] [place] [address] PCP - General General Internal Medicine 02/20/15 documented as of this encounter
--- OUTSIDE RECORDS SUMMARY | 2023-10-23 09:04 | XMS_ITS | Encounter Summary ---
Author Organization [facility] [place] [address] Care Team Providers Care Temperature Logging Operator Name Role Phone Phoenix Guzmán DO Primary Care Provider [phone] Encounter Details Date Type Department Care Team (Latest Contact Info) Description 07/12/2022 Travel Social History Tobacco Use Types Packs/Day [...] 9:15 AM EDT Office Visit Dermatology at [facility] [address] [place] [address] Dawson Broderick MD [facility] [place] [address] 07/23/2024 9:30 AM EDT Office Visit Dermatology at [facility] [address] [place] [address] Dawson Broderick MD [facility] [place] [address] documented as of this encounter Visit Diagnoses Not on filedocumented in this encounter Care Teams Temperature Logging Operator Relationship Specialty Start Date End Date Phoenix Guzmán DO [address] [place] [address] [place] [phone] PCP - General General Internal Medicine 02/20/15 documented as of this encounter
--- OUTSIDE RECORDS SUMMARY | 2023-10-23 09:04 | XMS_ITS | Encounter Summary ---
Author Organization [facility] [place] [address] Care Team Providers Care Bill Peddler Name Role Phone Phoenix Guzmán DO Primary Care Provider [phone] Encounter Details Date Type Department Care Team (Latest Contact Info) Description 01/25/2022 Travel Social History Tobacco Use Types Packs/Day [...] 9:15 AM EDT Office Visit Dermatology at [facility] [address] [place] [address] Dawson Broderick MD [facility] [address] [place] [address] 07/23/2024 9:30 AM EDT Office Visit Dermatology at [facility] [address] [place] [address] Dawson Broderick MD [facility] [address] [place] [address] documented as of this encounter Visit Diagnoses Not on filedocumented in this encounter Care Teams Bill Peddler Relationship Specialty Start Date End Date Phoenix Guzmán DO [address] [place] [address] [place] [phone] PCP - General General Internal Medicine 02/20/15 documented as of this encounter
--- OUTSIDE RECORDS SUMMARY | 2023-10-23 09:04 | XMS_ITS | Encounter Summary ---
[facility] Organization [facility] [place] [address] Care Team Providers Care Silver Recovery Operator Name Role Phone RamirezPhoenix Susan MCDOWELL Primary Care Provider [phone] Reason for Visit * Auth/Cert Specialty Diagnoses / Procedures Referred By Omid shepherd Referred To Contact Diagnoses Presence of left artificial knee joint Arthrotomy disruption and quad tendon injury status post left total knee revision Procedures PRO UNLISTED PROCEDURE FEMUR/KNEE ARTHROTOMY WITH REPAIR QUADRICEPS TENDON (WRVU 8.81) Referral ID Status Reason Start Date Expiration Date Visits Re quested Visits Authorized [id number] 1 1 Encounter Details Date Type Department Care Team (Late st Contact Info) Description 04/08/2020 7:25 AM EST Anesthesia [place] [address] David Mancia MD [facility] [place] [address] David Pratt CRNA [facility] [place] [address] Anesthesia Record Procedure Summary Procedure Name Responsible Anesthesiologist Anesthesia Start Time Anesthesia Stop Time ARTHROTOMY WITH REPAIR QUADRICEPS TENDON (WRVU 8.81) (Left: Leg Upper) David Mancia MD 04/08/20 0725 04/08/20 0905 Events Date Time Event Comment 04/08/2020 0703 0725 AN Verify 0725 Start 0725 An Start Data 0732 An Induction 0734 An Intubation 0737 Anesthesia Ready 0748 An Tourn Inflated 0749 Procedure Start 0816 An Tourn Deflated 0844 Extubation/LMA Out 0847 an stop data 0847 Recovery or ICU Handoff Charlene ent care was transferred to the destination unit staff after review of the patient's medical history, current anesthetic/surgical status and plan, according to the Provider Handoff Checklist. 0905 Stop Meds Name Total fentaNYL 100 mcg IV Lidocaine 100 mg Propofol 200 mg Rocuronium 30 mg PHENYLephrine 320 mcg Ondansetron 8 mg Dexamethasone 4 mg Neostigmine 3 mg Glycopyrrolate 0.6 mg ceFAZolin (Ancef) 2 g in dextrose 5% 100 mL infusion 3 g Succinylcholine 140 mg Lactated Ringers 700 mL * Agents Name O2 Air N2O Sevoflurane (et) * Blood No blood administrations on file. Lines, Drains, and Airways Type Details Placement Removal Incision 09/07/15; knee; 11/02 12/23 (LDA cleanup utility RA#[id number]); 1715 (LDA cleanup utility RA#[id number]) 09/07/15 0000 by [...] Terry RN 11/29/21 1715 by Marion Vásquez Incision 12/11/19; 1412; knee ; Left total knee revision ; 11/29/21 (LDA cleanup utility RA#[id number]); 1715 (LDA cleanup utility RA#[id number]) 12/11/19 1412 by Ludmila Romero RN 11/29/21 1715 by Marion Vásquez (RETIRED) Peripheral IV Line - Single Lumen 04/08/20; 0649; median cubital vein (antecubital fossa), left; pnow-hjz-[id number] catheter system; 18 gauge; Emma Weiner RN; intradermal injection, distraction, tolerated well; 0; no longer indicated; 04/08/20; 1006 04/08/20 0649 by Emma Weiner RN 04/08/20 1006 by Michele Flores, MICHAELA ETT Mask Ventilation: Ea sy (1); ETT Type: Cuffed, Oral; ETT Size: 7.5 mm; Mac Blade: 4; Notes: Asleep, Pre-O2; Attempts: 1; Laryngoscopy Grade: 1; ETT Placement Verified By: Auscultation, Capnometry, Visual; Secured at Teeth: 22 cm; Inserted by: darrian pratt; Removal Date: 04/08/20; Removal Time: 0844 04/08/20 0732 by David Pratt, [employer] 04/08/20 0844 by David Pratt, [employer] Incision 04/08/20; 0749; knee ; 11/29/21 (LDA cleanup utility RA#[id number]); 1715 (LDA cleanup utility RA#[id number]) 04/08/20 0749 by Ivanna العراقي RN 11/29/21 1715 by [place] Vásquez documented [...] OR Notes * Anesthesia Postprocedure Evaluation - David Mancia MD - 04/08/2020 10:15 AM EST Department of Anesthesiology Post-procedure Note Patient: Gunnar Morin Procedure Summary Date: 04/08/20 Room / Location: [address] MAIN OR Anesthesia Start: 724 Anesthesia Stop: 904 Procedure: ARTHROTOMY WITH REPAIR QUADRICEPS TENDON (WRVU 8.81) (Left Leg Upper) Diagnosis: Status post total left knee replacement (Arthrotomy disruption and quad tendon injury status post left total knee revision) Surgeon: Walter Rae MD Responsible Provider: David Mancia MD Anesthesia Type: general ASA Status: 3 All Anesthesia Providers: Anesthesiologist: David Mancia MD [employer]: David Pratt CRNA Vitals Value Taken Time BP 132/75 04/08/20 0947 Temp 36.7 ??C (98.1 ??F) 04/08/20 0853 Pulse 78 04/08/20 0853 Resp 12 04/08/20 0945 SpO2 94 % 04/08/20 0948 Pain Level 2 04/08/20 1000 Vitals shown include unvalidated device data. [facility] Level of Consciousness: Awake and Alert Pain Management: Satisfactory Analgesia PONV: None Cardiovascular Status: At Baseline and Hemodynamically Stable Respiratory Status: At Baseline and Room Air Postoperative Fluid Status: Intravascular EUvolemia Possible Anesthetic Complications: NONE apparent at time of evaluation Final Primary Anesthesia Type: General (The anesthetic type performed was the same as planned.) Comments: David Mancia MD * Anesthesia Preprocedure Evaluation - David Mancia MD - 04/08/2020 6:29 AM EST Pre-Anesthesia Evaluation for: Gunnar Morin a 75 y.o. male. Procedure(s): ARTHROTOMY WITH REPAIR QUADRICEPS TENDON (WRVU 8.81) Patient Active Problem List Diagnosis ??? 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 sp R TKA on 09/21/16 Butch [...] Date ??? Cancer melanoma penis-pt. here at [facility] ??? Heart valve disease told he has [...] 3.79) performed by Carina Patton MD at [facility] OSC ??? PRO INTRAOP SENTINEL LYMPH ID W/DYE INJECTION Midline 01/19/2017 INTRAOPERATIVE ID (MAPPING) SENTINEL LYMPH NODE,INCLUDES INJECTION (WRVU 2.5) performed by Carina Patton MD at [facility] ??? PRO REVISE KNEE JOINT REPLACE, ALL PARTS Left 12/11/2019 @TOTAL KNEE REVISION ARTHROPLASTY, COMPLETE (WRVU 27.11) performed by Roverto Bliss MD at [facility] OR ??? PRO REVISE TOTAL HIP REPLACEMENT Right 06/29/2016 @TOTAL HIP REVISION ARTHROPLASTY, COMPLETE (WRVU 30.28) performed by Walter Rae MD at [facility] OR ??? PRO REVISE TOTAL HIP REPLACEMENT Right 12/01/2017 @TOTAL HIP REVISION ARTHROPLASTY, COMPLETE (WRVU 30.28) performed by Italo Hanna MD at [facility] OR ??? PRO TOTAL KNEE ARTHROPLASTY Left 09/07/2015 @TOTAL KNEE ARTHROPLASTY performed by Walter Rae MD at [facility] OR ??? PRO TOTAL KNEE ARTHROPLASTY Right 09/21/2016 @TOTAL KNEE ARTHROPLASTY (WRVU 20.72) performed by Walter Rae MD at [facility] OR ??? XR JOINT ASPIRATION - LARGE JOINT LEFT Left 09/12/2019 XR Fluoro Guided Joint Aspiration Large Left 09/12/2019 Saul Alan MD [facility] RAD XRAY Social History Tobacco Use ??? Smoking status: Former Smoker Types: Cigarettes Quit date: 01/11/2001 Years since quittin.2 ??? Smokeless tobacco: Never Used Substance Use Topics ??? Alcohol use: Yes Alcohol/week: 5.0 standard drinks Types: 5 Cans of beer per week Social History Substance and Sexual Activity Drug Use No Allergies Allergen Reactions ??? Amoxicillin Trihydrate Hives Medications: MAR and/or home medications have been reviewed. Physical Exam: No data found. There is no height or weight on file to calculate BMI. Airway Assessment: Mallampati: II TM distance: >3 FB Neck ROM: full Cardiovascular Assessment: system normal Pulmonary Assessment: pulmonary exam normal Dental Assessment: Misc Assessment: Anesthesia Plan: ASA 3 general, with a(n) intravenous induction 75yo male presenting for further revision of left knee replacement Denies any issues with GA for prior surgeries. Been difficult spinal in the past. Does not like nerve blocks Denies any recent changes to health. Hx of CAD w/ stenting Appropriately npo Plan for GETA Declines PNB Region - Other Informed Consent: Anesthetic plan and risks discussed with patient. Plan discussed with MA[employer] LE[employer]ER. PAT Clinic Note documented in this encounter Plan of Treatment Upcoming Encounters Date Type Department Care Team (Late st Contact Info) Description 10/31/2023 9:15 AM EDT Office Visit Dermatology at [facility] [address] [place] [address] Dawson Broderick MD [facility] [place] [address] 07/23/2024 9:30 AM EDT Office Visit Dermatology at [facility] [address] [place] [phone] Dawson Broderick MD [facility] [place] [address] documented as of this encounter Visit Diagnoses Not on filedocumented in this encounter Administered Medications Inactive Administered Medications - up to 3 most recent administrations Medication Order MAR Action Action Date Dose Rate Site ceFAZolin (Ancef) 2 g in dextrose 5% 100 mL infusion 2 g, Intravenous, EVERY 3 HOURS, 1 dose, First dose on Mon04/08/20 at 0715, Administer over 30 Minutes, Redose after 3 hours., Intra-Operative (Intra-Procedure), Indication for (Active or Suspected): Prophylaxis Given 04/08/2020 7:37 AM EST 3 g dexamethasone (Decadron) injection PRN, Starting on Mon04/08/20 at 0758, Until Mon04/08/20 at 0905, Anesthesia Intra-op, Routine Given 04/08/2020 7:58 AM EST 4 mg fentaNYL (pf) (50 mcg/mL) multi-dose injection PRN, Starting on Mon04/08/20 at 0725, Until Mon04/08/20 at 0905, Anesthesia Intra-op, Routine Given 04/08/2020 8:37 AM EST 50 mcg Given 04/08/2020 7:25 AM EST 50 mcg glycopyrrolate (Robinul) (0.2 mg/mL) multi-dose injection PRN, Starting on Mon04/08/20 at 0838, Until Mon04/08/20 at 0905, Anesthesia Intra-op, Routine Given 04/08/2020 8:38 AM EST 0.6 mg lactated ringers infusion CONTINUOUS PRN, Starting on Mon04/08/20 at 0725, Until Mon04/08/20 at 0905, Anesthesia Intra-op New Bag 04/08/2020 7:25 AM EST lidocaine (pf) (Xylocaine) (20 mg/mL) 2% injection syringe PRN, Starting on Mon04/08/20 at 0732, Until Mon04/08/20 at 0905, Anesthesia Intra-op, Routine Given 04/08/2020 7:32 AM EST 100 mg neostigmine (Bloxiver) (1 mg/mL) injection PRN, Starting on Mon04/08/20 at 0838, Until Mon04/08/20 at 0905, Anesthesia Intra-op, Routine Given 04/08/2020 8:38 AM EST 3 mg ondansetron (pf) (Zofran) (2 mg/mL) injection PRN, Starting on Mon04/08/20 at 0841, Until Mon04/08/20 at 0905, Anesthesia Intra-op, Routine Given 04/08/2020 8:41 AM EST 8 mg PHENYLephrine in NS (PF) (FIOR-SYNEPHRINE) 0.8 mg/10 mL (80 mcg/mL) multi-dose injection Syrg PRN, Starting on Mon04/08/20 at 0754, Until Mon04/08/20 at 0905, Anesthesia Intra-op, Routine Given 04/08/2020 8:18 AM EST 160 mcg Given 04/08/2020 8:09 AM EST 80 mcg Given 04/08/2020 7:54 AM EST 80 mcg propofoL (Diprivan) 10 mg/mL bolus injection (Anesthesia) PRN, Starting on Mon04/08/20 at 0732, Until Mon04/08/20 at 0905, Anesthesia Intra-op Given 04/08/2020 7:35 AM EST 20 mg Given 04/08/2020 7:32 AM EST 180 mg rocuronium (Zemuron) (10 mg/mL) multi-dose injection PRN, Starting on Mon04/08/20 at 0745, Until Mon04/08/20 at 0905, Anesthesia Intra-op, Routine Given 04/08/2020 7:45 AM EST 30 mg succinylcholine (Anectine;Quelicin) (20 mg/mL) injection PRN, Starting on Mon04/08/20 at 0732, Until Mon04/08/20 at 0905, Anesthesia Intra-op, Routine Given 04/08/2020 7:32 AM EST 140 mg documented in this encounter Care Teams Silver Recovery Operator Relationship Specialty Start Date End Date Phoenix Guzmán DO [address] [place] [address] [place] [id number] PCP - General General Internal Medicine 02/20/15 documented as of this encounter
--- OUTSIDE RECORDS SUMMARY | 2023-10-23 09:04 | XMS_ITS | Encounter Summary ---
Author Organization [facility] [place] [address] Care Team Providers Care Telephone Appointment Clerk Name Role Phone Phoenix Guzmán Primary Care Provider [phone] Encounter Details Date Type Department Care Team (Latest Contact Info) Description 01/23/2020 8:02 AM EDT - 01/23/2020 11:59 PM EDT Hospital Encounter XRay at [address] [place] [address] Walter Rae MD [facility] [place] [address] Status post total left knee replacement; Status post right hip replacement Discharge Disposition: Home Social History Tobacco Use [...] 9:15 AM EDT Office Visit Dermatology at [facility] [address] [place] [phone] Dawson Broderick MD [facility] [address] [place] [address] 07/23/2024 9:30 AM EDT Office Visit Dermatology at [facility] [address] [place] [address] Dawson Broderick MD [facility] [place] [address] documented as of this encounter Procedures Procedure Name Priority Date/Time Associated Diagnosis Comments XR KNEE STANDING ALIGNMENT AP LAT SKYLINE LEFT Routine 01/23/2020 8:48 AM EDT Status post total left knee replacement XR PELVIS AND HIP 2 VIEWS RIGHT Routine 01/23/2020 8:48 AM EDT Status post right hip replacement documented in this encounter Results * XR Pelvis and Hip 2 Views Right (01/23/2020 8:48 AM EDT) Anatomical Region Laterality Modality Pelvis, Hip Right Digital Radiogra phy Impressions 01/23/2020 2:16 PM EDT 1. ??Right total hip arthroplasty without hardware complication. 2. 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 Preliminary report signed by: Ezekiel Hughes at 01/23/2020 2:00 PM I have personally reviewed the image(s) and the resident's interpretation and agree with the findings, Page Butt MD at 01/23/2020 2:16 PM Thank you for letting us participate in the care of this patient. For questions regarding this report, please contact the number below. ? Electronically signed by: Page Butt MD, [facility] ([phone]), at 01/23/2020 2:16 PM Narrative 01/23/2020 2:16 PM EDT EXAMINATION: XR PELVIS AND HIP 2 VIEWS RIGHT CLINICAL HISTORY: S/P RIGHT ELZBIETA TECHNIQUE: 3 views of the pelvis and hips COMPARISON: Right hip radiographs 1018 FINDINGS: Patient is status post right total hip arthroplasty with screw fixation of the acetabular cup. No periprosthetic lucencies or fractures. Alignment is unchanged. Unchanged small marginal osteophytes arising from left hip joint with relative preserved joint spaces. ^with concentric joint space narrowing and subchondral sclerosis. Scattered surgical [place] project over the right inferior pubic ramus and the left femoral head. Procedure Note Page Butt MD - 01/23/2020 EXAMINATION: XR PELVIS AND HIP 2 VIEWS RIGHT CLINICAL HISTORY: S/P RIGHT ELZBIETA TECHNIQUE: 3 views of the pelvis and hips COMPARISON: Right hip radiographs 1018 FINDINGS: Patient is status post right total hip arthroplasty with screw fixation ofthe acetabular cup. No periprosthetic lucencies or fractures. Alignment is unchanged. Unchanged small marginal osteophytes arising from left hip joint withrelative preserved joint spaces. ^with concentric joint space narrowing and subchondral sclerosis.Scattered surgical [place] project over the right inferior pubic ramus and theleft femoral head. IMPRESSION 1. Right total hip arthroplasty without hardware complication. 2. 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 Preliminary report signed by: Ezekiel Hughes at 01/23/2020 2:00 PM I have personally reviewed the image(s) and the resident's interpretationand agree with the findings, aPge Butt MD at 01/23/2020 2:16 PM Thank you for letting us participate in the care of this patient. Forquestions regarding this report, please contact the number below. Electronically signed by: Page Butt MD, [facility]([phone]), at 01/23/2020 2:16 PM Walter Rae MD IMG DX ORDERABLES * XR Knee Standing Alignment AP Lat [place] Left (01/23/2020 8:48 AM EDT) Anatomical Region Laterality Modality Knee Left Digital Radiogra phy Impressions 01/23/2020 2:16 PM EDT 1. ??Right total knee arthroplasty without hardware complication. 2. ??Resolution of early postsurgical air around the revised left total knee arthroplasty. 3. ??Increased prepatellar soft tissue edema of left knee 4. ??Near midline bilateral weight bearing axis.. Preliminary report signed by: Ezekiel Hughes at 01/23/2020 2:00 PM I have personally reviewed the image(s) and the resident's interpretation and agree with the findings, Page Butt MD at 01/23/2020 2:16 PM Thank you for letting us participate in the care of this patient. For questions regarding this report, please contact the number below. ? Electronically signed by: Page Butt MD, [facility] ([phone]), at 01/23/2020 2:16 PM Narrative 01/23/2020 2:16 PM EDT EXAMINATION: XR KNEE STANDING ALIGNMENT AP LAT SKYLINE LEFT CLINICAL HISTORY: History of knee replacement TECHNIQUE: Separate images of the pelvis, knees and feet were acquired in the AP projection with the patient standing. These images were stitched together to form a composite image of the pelvis and legs allowing for evaluation of lower extremity alignment in the weight bearing position. COMPARISON: Knee radiographs 12/11/2019 and 08/08/2019 FINDINGS: Mechanical axis is deviated laterally 4 mm of the right. Mechanical axis is midline left. ^Left tibia-unchanged small round marrow radiodensities in mid tibial shaft, first seen after revision. This likely represent postsurgical change. No endosteal scalloping, periostitis or bone destruction. Right: Status post total knee arthroplasty without periprosthetic lucency or fracture. The right knee is seen only on the AP and sunrise views. Left: Revised left total knee arthroplasty redemonstrated. No periprosthetic fracture nor radiolucencies. Increased prepatellar soft tissue swelling and resolution of early postsurgical air. Procedure Note Page Butt MD - 01/23/2020 EXAMINATION: XR KNEE STANDING ALIGNMENT AP LAT SKYLINE LEFT CLINICAL HISTORY: History of knee replacement TECHNIQUE: Separate images of the pelvis, knees and feet were acquired inthe AP projection with the patient standing. These images were stitched togetherto form a composite image of the pelvis and legs allowing for evaluation oflower extremity alignment in the weight bearing position. COMPARISON: Knee radiographs 12/11/2019 and 08/08/2019 FINDINGS: Mechanical axis is deviated laterally 4 mm of the right. Mechanical axis is midline left. ^Left tibia-unchanged small round marrow radiodensities in mid tibialshaft, first seen after revision. This likely represent postsurgical change. No endosteal scalloping, periostitis or bone destruction. Right: Status post total knee arthroplasty without periprosthetic lucencyor fracture. The right knee is seen only on the AP and sunrise views. Left: Revised left total knee arthroplasty redemonstrated. No periprosthetic fracture nor radiolucencies. Increased prepatellar soft tissue swelling and resolution of earlypostsurgical air. IMPRESSION 1. Right total knee arthroplasty without hardware complication. 2. Resolution of early postsurgical air around the revised left totalknee arthroplasty. 3. Increased prepatellar soft tissue edema of left knee 4. Near midline bilateral weight bearing axis.. Preliminary report signed by: Ezekiel Hughes at 01/23/2020 2:00 PM I have personally reviewed the image(s) and the resident's interpretationand agree with the findings, Page Butt MD at 01/23/2020 2:16 PM Thank you for letting us participate in the care of this patient. Forquestions regarding this report, please contact the number below. Electronically signed by: Page Butt MD, [facility]([phone]), at 01/23/2020 2:16 PM Walter Rae MD IMG DX ORDERABLES documented in this encounter Visit Diagnoses Diagnosis Status post total left knee replacement Status post right hip replacement Hip joint replacement by other means documented in this encounter Care Teams Telephone Appointment Clerk Relationship Specialty Start Date End Date Phoenix Guzmán DO [address] [place] [address] [place] [phone] PCP - General General Internal Medicine 02/20/15 documented as of this encounter
--- OUTSIDE RECORDS SUMMARY | 2023-10-23 09:04 | XMS_ITS | Encounter Summary ---
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 Procedures PRO UNLISTED PROCEDURE FEMUR/KNEE ARTHROTOMY WITH REPAIR QUADRICEPS TENDON (WRVU 8.81) Referral ID Status Reason Start Date Expiration Date Visits Re quested Visits Authorized [id number] 1 1 Encounter Details Date Type Department Care Team (Late st Contact Info) Description 04/08/2020 7:30 AM EST - 04/08/2020 9:00 AM EST Surgery [place] [id number] Walter Rae MD [facility] DR [place] [address] ARTHROTOMY WITH REPAIR QUADRICEPS TENDON (WRVU 8.81) Social History Tobacco Use Types Packs/Day Years [...] Sign Reading Time Taken Comments Blood Pressure 136/79 04/08/2020 8:53 AM EST Pulse 78 04/08/2020 8:53 AM EST Temperature 36.7 ??C (98.1 ??F) 04/08/2020 8:53 AM ES T Respiratory Rate 16 04/08/2020 8:53 AM EST Oxygen Saturation 95% 04/08/2020 9:00 AM EST Inhaled Oxygen Concentration - - Weight 131.5 kg (289 lb 14.5 oz) 04/08/2020 6:37 AM EST Height 182.9 cm (6' 0.01) 04/08/2020 6:37 AM ES T Body Mass Index 39.31 04/08/2020 6:37 AM EST documented in this encounter Discharge Instructions * Discharge Instructions* Michele Flores RN - 04/08/2020 9:08 AM EST POST ANESTHESIA INSTRUCTIONS Go home, rest, use caution on stairs. Change positions slowly. Do not smoke if you are alone. Diet light to regular as tolerated today. If nausea occurs start with clear liquids and progress slowly. No driving, operating machinery, alcoholic beverages and no important decisions for 24 hours. Monitor IV site for signs and symptoms of infection: increasing redness, swelling, foul drainage, if occurs contact M.D. Patients who have had endotrachial tubes (this tube, used by anesthesia department, is passed down your throat after you are asleep, to ensure safe air passage during your operation). A sore throat is normal due to the tube. Cold liquids or soothing lozenges will help ease the discomfort. The generalized muscle aches are due to the medication given to you just before the tube is inserted. As the medication wears off, you may develop muscle soreness, which usually goes away in 12-24 hours. * Patient Instructions* Chau Simeon - 04/08/2020 6:59 AM EST Activity: 1. Your weight-bearing status is - weight bearing as tolerated of left leg. Keep your knee brace locked in extension at all times. 2. Remember to use a walker or crutches at all times for balance and protection. Your physical therapist may progress you to using a cane when appropriate. Anticoagulation: Aspirin - You are being discharged on enteric-coated Aspirin 81 mg by mouth twice a day. Continue this for 30 days after surgery. After your dose on 05/08/20 stop the Aspirin, unless you are told otherwise by your Orthopedic surgeon. Take this medication with food or large amounts (240 mL) of water or milk to minimize GI irritation. Diet: Resume your usual diet but increase your intake of fluids and fiber while you are on narcoticpain meds to prevent constipation. Driving: None until you are cleared to do so by your Orthopedic surgeon. You should not drive whileyou are on narcotic pain meds as they can affect your judgment and reaction time. Call your surgeonwith any questions/concerns. Medications: 1. The pain medication you are on can cause constipation so increase your intake of fluids and fiber while you are on them. The stool softener, Pericolace, that has been prescribed can also be taken to facilitate a bowel movement. You can also take an yuzj-dyd-sxykouz medication, Miralax if needed to combat constipation. 2. If you need a renewal on your narcotic pain medication, you need to give the Orthopedic clinic enough time to process your request. This can take up to three days, so plan accordingly. 3. Continue acetaminophen (Tylenol) 1,000mg every 8 hours around the clock until 04/18/20 (for ten days after your surgery). This can be effective in controlling pain along with your other medications. After that you can take Tylenol as needed per package insert. Do not take more than 3,000mg of acetaminophen in a 24 hour period. Shower (michoacano/sutures): 1. You can shower but remember your activity limitations and always have a chair available for balance and protection. DO NOT submerge the dressing/incision. 2. (Mepilex) Do not let water run over the operative dressing. If it becomes wet lightly pat the dressing dry. DO NOT submerge the incision. 3. You have michoacano/sutures. Always cover them with a waterproof dressing or plastic bag when showering until they are removed. 4. After michoacano/sutures are removed you can let water run gently over the incision. Wound (Mepilex): 1. Staple/suture removal 2 weeks after surgery (approximately 04/23/20). 2. Do not lift the edge of the Mepilex dressing to inspect the incision, it will not re-adhere. Remove your operative dressing 7 days from your surgery (04/15/20). When it is removed you can leave theincision open to air or cover it with a light dressing. 3. If you have lots of drainage when you get home (and it is before 04/15/20), remove this operativedressing and replace it with dry sterile gauze. Continue with daily dressing changes (and as needed) until the drainage stops, then remove the dressing and leave the incision open to air or lightly covered. Misc: Remember that ICE and elevation are very important after surgery to help decrease swelling and control pain. Use ICE for 20-30 minutes at a time and keep your leg elevated as much as possible. Call your doctor ([phone]) if you develop: 1. Fever greater than 100.5 2. Severe nausea or vomiting 3. Increasing pain that is not controlled by pain medications 4. Increasing redness, swelling, or drainage from incisions 5. Change in sensation FOLLOW-UP APPOINTMENTS: 1. [place] [facility] indicated below in Future Appointment and Orders. 2. You will need to have x-rays prior to your follow-up appointment on 04/23/20. Please come to Radiology, desk 3T, 1 hour BEFORE that appointment for those x-rays. Future Appointments Date Time Provider Department Center 04/23/2020 10:15 AM [facility] DX ROOM 2 MH Xray [facility] Rad 04/23/2020 11:20 AM Walter Rae MD [facility] [place] [place] [facility] [place] [place] 06/02/2020 11:30 AM Dawson Broderick MD [facility] If you have questions or concerns: Monday through Monday, 8 AM - 5 PM, please call Dr. Walter Rae MD's office at . If it is after 5 PM, the weekend, or holidays, please call and ask to speak with theOrthopedic resident on-call. documented in this encounter Medications at Time of Discharge [...] 07/28/2016 04/13/2015 documented as of this encounter Progress Notes * Michele Flores RN - 04/08/2020 10:04 AM EST Patient alert and oriented, vital signs stable. Reviewed discharge instructions; patient and , Sussy verbalized understanding. Copy of instruction sheet with contact numbers for questions/concerns with both. Pain assessment documented. Patient escorted out of department via wheelchair with ANKLE PATCH MOLDER. documented in this encounter H&P Notes * Chau Simeon - 04/08/2020 6:52 AM EST The patient's history and physical exam have been reviewed and completed. There has been no interval change from that of the pre-operative history and physical exam done within the last 30 days. RRR No wheezing Plan: Extensor mechanism repair left knee We discussed the technical aspects of this, risks, benefits, he elected to proceed, consent was obtained. * Walter Rae MD - 04/08/2020 6:52 AM EST The patient's history and physical exam have been reviewed and completed. There has been no interval change from that of the pre-operative history and physical exam done within the last 30 days. Regular Clear Ready for OR Discussed with patient and his today the findings of the medial retinaculum disruption. Patient is able to straight leg raise with 5 out of 5 strength. His patella is central although slightly tilted on x-ray. He has no significant pain with range of motion of his knee. There is no signs of erythema. There is some bogginess and swelling proximally in the area of the retinaculum disruption. I discussed today moving forward with medial retinaculum repair. I discussed the postoperative protocol including hinged knee brace locked in extension until follow-up. This will likely be 2 to 4 weeks. Will use aspirin twice daily for blood clot prevention. We once again reviewed the risk and benefits of surgery including infection, bleeding, damage to blood vessels nerves, failure of repair, pain, stiffness, wound healing issues. Discussed potentially obtaining a culture today just to assess for any low-level infection. We discussed medical and anesthetic risk. Informed consent was obtained for extensor mechanism and medial retinacular repair. Patient will be discharged likely was a sent to surgery today. He will be weightbearing as tolerated locked in extension. Follow-up in 4 weeks. 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 Condition: doing well without problems Findings: Upon examination of the arthrotomy there was disruption of the arthrotomy for approximately 13 cm extending from the distal portion of the patella to the proximal aspect of the quad tendon arthrotomy. There was scar tissue present overlying the defect. This was excised. The medial tissue was brought over to the quad tendon and medial aspect of the patella. This provided an excellent watertight closure with stable tracking of the patella. There were no signs of infection. Knee fluid was normal-appearing yellow fluid. (Please see the Surgical Encounter Summary for any Implant and Specimen details pertinent to this patient.) HPI/Surgical Indications: Patient is a 75-year-old male who underwent a left total knee revision with isolated tibial revision about 4 months ago. During his postoperative course he was ascending stairs and felt a pop. He had increasing pain and swelling at that time. He was seen in the clinic where clinical exam revealed a intact extensor mechanism by exam with full extension with no lag and 5 out of 5 strength. However he continued to have significant bogginess and swelling in the anterior soft tissues and pain. An MRI was performed showing a significant disruption of the medial retinaculumextending from the midportion of the patella of the quad tendon arthrotomy. A discussion was had with patient regarding the repair of this. We elected proceed in that manner after reviewing the risksand benefits. Procedure Description: Patient was seen in the same day surgery report consent was obtained. The left lower extremity was marked with a green puyall[place]. Patient was taken back to the operating placed onthe operative supine position a general anesthetic was administered by the anesthesia staff. A timeout was performed per policy and 3 g of Ancef were given. Patient's left lower extremity was prepp ed and draped in usual fashion using DuraPrep. Patient's prior incision was utilized. Sharp 10 blade was used to incise skin. Bovie cautery was used to dissect both medial and lateral skin flaps. At this point there was a another distinct layer of scar tissue overlying the joint and quad tendon. This was debrided and opened. The medial defect was appreciated extending from the distal portion of the patella proximally to the proximal end of the arthrotomy and the quad tendon. The quad tendon was attached at the superior pole of the patella in continuity. Significant fibrinous tissue was removed from both the medial and lateral side. #3 Vicryl sutures were used in a interrupted homfjx-ur-ulszt fashion to reapproximate the arthrotomy. The a rthrotomy was then closed with #1 Vicryl sutures to a watertight closure. The knee was flexed up and found to be watertight with excellent tracking of patella. Next, the subcutaneous tissues reapproximated with combination of 0 and 2 -0 Vicryl suture. The skin was closed with michoacano. A Mepilex dressing was applied. There are no immediate complications noted. At the end the case all sponge countsand needle correct x2.. Patient was transferred back to the PACU in stable condition. Plan: Patient be weightbearing as tolerated with the knee locked in extension. He will use aspirin twice daily for DVT prophylaxis. He will follow-up in 4 weeks in clinic. He should have michoacano removed in 2 weeks. Infection Bundle used? N/A Attestation: Case Date: 04/08/2020 I was present and I participated during the entire procedure (does not need to include opening and closing). Walter Rae MD 04/08/2020 The patient was placed in a hinged knee brace documented in this encounter Plan of Treatment Upcoming Encounters Date Type Department Care Team (Late st Contact Info) Description 10/31/2023 9:15 AM EDT Office Visit Dermatology at [facility] [address] [place] [address] Dawson Broderick MD [facility] [place] [address] 07/23/2024 9:30 AM EDT Office Visit [facility] [address] [place] [address] Dawson Broderick MD [facility] [place] [address] documented as of this encounter Procedures Procedure Name Priority Date/Time Associated Diagnosis Comments Unlisted Procedure Femur/Knee (35603) 04/08/2020 7:25 AM EST Status post total left knee replacement ARTHROTOMY WITH REPAIR QUADRICEPS TENDON Routine 04/08/2020 6:18 AM EST Status post total left knee replacement documented in this encounter Visit Diagnoses Diagnosis S/P L quad tendon/extensor mechanism repair 04/08/20 Dr. 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 When ordered for pain, acetaminophen should be given even when other ordered pain medications are indicated. , PACU Recovery, Routine Given 04/08/2020 9:36 AM EST 975 mg documented in this encounter Active and Recently Administered Medications Times are shown in EST. Scheduled Medication Order 04/06/2020 04/07/2020 04/08/2020 acetaminophen (Tylenol) tablet 975 mg (COMPLETED) 975 mg, Oral, ONCE, 1 dose, On Mon04/08/20 at 1000, Maximum dose of acetaminophen is 4000 mg from all sources in 24 hours. When ordered for pain, acetaminophen should be given even when other ordered pain medications are indicated. , PACU Recovery, Routine 0936 (Given - Provid er: Michele Flores RN) ceFAZolin (Ancef) 2 g in dextrose 5% 100 mL infusion (COMPLETED) 2 g, Intravenous, EVERY 3 HOURS, 1 dose, First dose on Mon04/08/20 at 0715, Administer over 30 Minutes, Redose after 3 hours., Intra-Operative (Intra-Procedure), Indication for (Active or Suspected): Prophylaxis 0737 (Given - Provid er: David Willard CRNA) documented in this encounter Care Teams Scalloper Relationship Specialty Start Date End Date Phoenix Guzmán DO [address] [place] [address] [place] [address] PCP - General General Internal Medicine 02/20/15 documented as of this encounter
--- OUTSIDE RECORDS SUMMARY | 2023-10-23 09:04 | XMS_ITS | Encounter Summary ---
[facility] [place] [address] Care Team Providers Care Hot Roll Inspector Name Role Phone DevantePhoenix orozco Susan MCDOWELL Primary Care Provider [phone] Reason for Visit * Auth/Cert Specialty Diagnoses [...] Expiration Date Visits Re quested Visits Authorized [id number] 1 1 Encounter Details Date Type Department Care Team (Latest Contact Info) Description 12/11/2019 10:26 AM EDT - 12/12/2019 2:03 PM EDT Hospital Encounter 3 [place] [id number] Rober Bliss MD [facility] [address] Coronary artery disease, angina presence unspecified, unspecified vessel or lesion type, unspecified whether [place] or transplanted heart; 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 12/11/19 (Izaiah) Discharge Disposition: Home with VNA Social History Tobacco Use Types Packs/Day Years [...] Sign Reading Time Taken Comments Blood Pressure 132/80 12/12/2019 7:48 AM EDT Pulse 85 12/12/2019 7:48 AM EDT Temperature 36.7 ??C (98.1 ??F) 12/12/2019 7:48 AM ED T Respiratory Rate 16 12/12/2019 7:48 AM EDT Oxygen Saturation 94% 12/12/2019 7:48 AM EDT Inhaled Oxygen Concentration - - Weight 133.8 kg (295 lb) 12/12/2019 7:48 AM EDT Height 182.9 cm (6' 0.01) 12/12/2019 7:48 AM ED T Body Mass Index 40 12/12/2019 7:48 AM EDT documented in this encounter Discharge Summaries * Julia Soriano P, ENGINE DYNAMOMETER TESTER - 12/12/2019 10:41 AM EDT Discharge Summary Patient Name: Gunnar Morin Patient Age: 74 y.o. Language: American Race: White Ethnicity: Not nor Admit date: 12/11/2019 Discharge date and time: 12/12/2019 Attending Physician: Rober Bliss MD Discharge Physician: Rober Bliss MD Follow-up Recommendations for Providers: See discharge instructions for additional details. Future Appointments Date Time Provider Department Center 01/23/2020 8:30 AM [facility] DX ROOM 1 Xray [facility] Rad 01/23/2020 9:30 AM Walter Rae MD [facility] ORTH 3C [facility] 01/23/2020 11:00 AM [facility] DX ROOM 3 MH Xray [facility] Rad Inpatient Provider Contact Information: Rober Bliss MD Orthopedics: [phone] After hours and weekends, call [facility] Manager [employer], , and have the Orthopedic resident paged. Discharge Diagnoses (Hospital Problems) and Secondary Diagnoses (Chronic Problems): Active Hospital Problems Diagnosis ??? 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 Morbid obesity with BMI of 40.0-44.9, adult Resolved Hospital Problems No resolved problems to display. Active Non-Hospital Problems Diagnosis ??? sp R TKA on 09/21/16 Butch ??? Status post total knee replacement ??? Monitoring for anticoagulant use ??? Status post total replacement of right hip ??? 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 H/O total hip arthroplasty ??? 09/07/2015 S/P Left total knee arthroplasty (Dr. Rae), ? loose tibial component ??? DJD (degenerative joint disease) of knee ??? CAD (coronary artery disease) ??? Arthritis of knee ??? s/p revision R ELZBIETA with head-liner exchange 06/29/16 (Dr. Rae) with dislocation(12/2016) ??? Osteoarthritis of both knees ??? Bilateral knee pain Operations/Major Procedures: 12/11/2019 Surgeon(s) and Role: * Rober Bliss MD - Primary * Seth Zhu MD - Resident Procedure(s): LEFT TOTAL KNEE REVISION ARTHROPLASTY, COMPLETE MODIFIER ATTUNE REVISION ROTATING PLATFORM RP KNEE SYSTEM DEPUY Findings: Grossly loose tibial component. Well-fixed femoral and patellar components. No purulence or signs of infection. History of Presentation: Gunnar Morin is a 74 y.o. male with a history of left total knee arthroplasty in September 2015 who presented with left knee pain and bone scan consistent with loosening of the tibial component. Inflammatory markers and knee aspiration were not concerning for infection. The risks, benefits, and alternatives to revision of the tibial component for aseptic loosening were discussed with the patient he elected to proceed with surgery. ?? Hospital Course: The patient was admitted via Same Day Surgery for the above operation. DVT prophylaxis: ASA 81mg BID for 30 days . Patient began rehab on POD#1 w/ weight bearing as tolerated of left leg remembering to use protection at all times for balance and protection. /The patient required straight cath X 1 but then was voiding spontaneously with decreasing PVRs. The left knee silver Mepilex dressing to remain in place 7 days, was inspected on POD#1 and was dry and intact. Pain was well controlled with oral pain medications. Patient did not have a bowel movement prior to discharge but was passing flatus and taking PO without difficulty. By POD#1 the patient was medically stable and was cleared for safe discharge to home. Vital Signs at Discharge: Weight: Wt Readings from Last 1 Encounters: 12/12/19 133.8 kg (295 lb) Height: Ht Readings from Last 1 Encounters: 12/12/19 182.9 cm (6' 0.01) HC: HC Readings from Last 1 Encounters: No data found for HC BMI: Body mass index is 40 kg/m??. Last value Range last 24 hrs Temperature Temp: 36.7 ??C (98.1 ??F) Temp: [36 ??C (96.8 ??F)-36.7 ??C (98.1 ??F)] Heart Rate Heart Rate: 85 Heart Rate: [74-93] Blood Pressure BP: 132/80 BP: (114-168)/(59-92) Respiratory Rate Resp: 16 Resp: [12-34] SpO2 SpO2: 94 % SpO2: [91 %-94 %] Functional and Cognitive Status: Patient mobilizing with a walker, cognitively intact at baseline mental status at time of discharge. Important Lab Data: Last 3 wbc, hgb, hct plt Recent Labs 12/12/19 0735 08/08/19 1119 WBC 12.4* 5.2 HGB 13.9 15.9 HCT 41.2 49.2* PLATELET 224 255 Last 3 Lytes Recent Labs 12/12/19 0735 NA 136 K 4.8 CL 100 CO2 25 BUN 15 CREATININE 1.00 Last Ca, Mg, Phos Recent Labs 12/12/19 0735 CALCIUM 8.3* Studies: Xray Tibia Fibula Left (generic) Result Date: 12/11/2019 EXAMINATION: XR TIBIA FIBULA LEFT (GENERIC) CLINICAL HISTORY: 74-year-old male status post tibial component revision. TECHNIQUE: 4 radiographs of the left tibia-fibula were obtained. COMPARISON: Correlation is made to left knee radiographs dated August 08, 2019. FINDINGS: There has been interval revision of the tibial component of a left knee arthroplasty. There is intramedullary cement located distal to the device within the mid tibial diaphysis. The tibial component appears well-positioned without periprosthetic lucency. There is associated subcutaneous and intra-articular air, consistent withpostsurgical change. There is also diffuse soft tissue swelling surrounding the surgical site. There is no fracture. There is no dislocation. The femoral components appears in appropriate positioning. There is no periprosthetic lucency to suggest loosening. There is no other radiopaque foreign body. 1. Interval revision of left tibial arthroplasty component with new component in its expected position. 2. Stable femoral component of left knee arthroplasty. 3. Postsurgical changes. Thank you for letting us participate in the care of this patient. For questions regarding this report, please contact the number below. Electronically signed by: Rober Franz [facility] ([phone])ca 12/11/2019 6:35 PM Pending Studies and Lab Data at Discharge: None Transfusions: No Discharge Conditions/Prognosis: Stable, awake, and alert. Mobilizing as noted above, pain controlled on oral medications. Discharge to: Home with VNA. Updated Allergies/ADRs: Allergies Allergen Reactions ??? Amoxicillin Trihydrate Hives Immunizations Given this Hospitalization: There is no immunization history on file for this patient. Discharge Medications: Your Medications New Medications Dose Details gabapentin 300 mg Cap Commonly known as: Neurontin Take 1 capsule by mouth nightly. Take nightly before bed for sleep for 4 weeks after surgery. 300 mg Quantity: 30 capsule Refills: 0 naproxen 500 mg Tab Commonly known as: NAPROSYN Take 1 tablet by mouth 2 times daily (with meals). Take with food for up to 6 weeks after surgery. 500 mg Quantity: 84 tablet Refills: 0 omeprazole 20 mg Cpdr Commonly known as: PriLOSEC Take 1 capsule by mouth daily. Take daily while taking naproxen 20 mg Quantity: 42 capsule Refills: 0 oxyCODONE 5 mg Tab Commonly known as: Roxicodone Take 1-2 tablets by mouth every 4 hours as needed for Pain (acute post-op surgical pain). 5-10 mg Quantity: 20 tablet Refills: 0 polyethylene glycoL 17 gram Pwpk Commonly known as: Miralax Take 17 g by mouth 2 times daily. 17 g Refills: 0 senna-docusate 8.6-50 mg Tab Commonly known as: Pericolace Take 2 tablets by mouth 2 times daily. 2 tablet Refills: 0 Continued medications with new dosing Dose Details acetaminophen 500 mg Tab Commonly known as: Tylenol Take 2 tablets by mouth every 8 hours. Continue the Tylenol around the clock for 10 days after surgery, (12/21/2019). Then may take if needed per package insert. Do not take more than 3,000 mg of Tylenol in 24 hours. What changed: additional instructions 1,000 mg Refills: 0 aspirin EC 81 mg Tbec Take 1 tablet by mouth 2 times daily. Take with food for 30 days after surgery. Last day = 01/10/2020. What changed: ?? when to take this ?? additional instructions 81 mg Refills: 0 Continued medications, unchanged Dose Details carvediloL 12.5 mg Tab Commonly known as: Coreg Take 12.5 mg by mouth 2 times daily (with meals). 12.5 mg Refills: 4 clindamycin 150 mg Cap Commonly known as: Cleocin See Admin Instructions. Reported on 07/28/2016 Refills: 0 ezetimibe 10 mg Tab Commonly known as: Zetia Refills: 0 hydrocortisone 2.5 % Crea Apply topically to the affected areas on the face once daily as needed. Quantity: 30 g Refills: 0 nitroGLYcerin 0.4 mg Subl Commonly known as: Nitrostat Place 1 tablet under the tongue every 5 minutes as needed for Chest pain. 0.4 mg Quantity: 90 tablet Refills: 12 tacrolimus 0.03 % Oint Commonly known as: Protopic Apply nightly to affected areas on face Quantity: 30 g Refills: 0 Smoking Status at Discharge: Social History Tobacco Use Smoking Status Former Smoker ??? Types: Cigarettes ??? Quit date: 01/11/2001 ??? Years since quittin.9 Smokeless Tobacco Never Used Instructions Given to Patient at Discharge: Patient Instructions Activity: 1. Your weight-bearing status is - weight bearing as tolerated of left leg. 2. Remember to use a walker or crutches at all times for balance and protection. Your physical therapist may progress you to using a cane when appropriate. 3. Flexion AND extension are important to work on at home. You should NOT place a pillow under youroperative knee. To help with extension you can place a pillow under your heel or lower leg or placed lengthwise along the operative leg. Again DO NOT place a pillow under the operated knee for comfort. Anticoagulation: Aspirin - You are being discharged on enteric-coated Aspirin 81 mg by mouth twice a day. Continue this for 30 days after surgery. After your dose on 01/10/2020 stop the Aspirin, unless you are told otherwise by your Orthopedic surgeon. Take this medication with food or large amounts(240 mL) of water or milk to minimize GI irritation. On 01/11/2020, you may resume your usual dailyAspirin. Diet: Resume your usual home diet but increase your intake of fluids and fiber while you are on narcotic pain meds to prevent constipation. Driving: None until [...] bowel movement. You can also take an gkht-aur-absbbbx medication, Miralax if needed to combat constipation. 2. If you need a renewal on your narcotic pain medication, you need to give the Orthopedic clinic enough time to process your request. This can take up to three days, so plan accordingly. 3. Continue acetaminophen (Tylenol) 1,000mg every 8 hours around the clock until 12/21/2019 (for tendays after your surgery). This can be effective in controlling pain along with your other medications. After that you can take Tylenol as needed per package insert. Do not take more than 3,000mg of acetaminophen in a 24 hour period. 4. You have been discharged on a short acting narcotic, oxycodone. You will be on this medication for a limited period of time only. Take only enough pain medication to control your pain. As your pain lessens, taper down and off this medication as tolerated. 5. You are being discharged on prescription strength naproxen (Aleve). This medication is a type ofnonsteroidal anti-inflammatory (NSAID). This will help with your pain and inflammation. Take this twice a day for the next 6 weeks. Your last dose will be on 01/22/2020. If you no longer are requiring the narcotic pain medication you may change the way you take the prescribed naproxen and instead take twice a day as needed. 6. You are being discharged on a proton pump inhibitor (Prilosec OTC). This will decrease stomach irritation that may be caused by NSAIDs. Take this daily for the next 6 weeks while you are on the NSAID. 7. You are being discharged on gabapentin (Neurontin), a non-narcotic medication that will help with your pain at night and allow you to sleep better. Take this at night for the next 4 weeks. Shower (internal sutures): 1. You can shower but remember your activity limitations and always have a chair available for balance and protection. DO NOT submerge the dressing/incision. 2. (Mepilex) Do not let water run over the operative dressing. If it becomes wet lightly pat the dressing dry. DO NOT submerge the incision. When this operative dressing is removed you can let water gently run over the incision. Wound (Mepilex): 1. You do NOT have any external [place] or sutures in place. Your sutures are internal and will be absorbed over time. 2. You have a Mepilex dressing in place. Do not lift the edge of the Mepilex dressing to inspect the incision, it will not re-adhere. Remove your operative dressing 7 days after your surgery (12/18/2019). When it is removed you can leave the incision open to air or cover it with a light dressing. Some patients have an additional item called Prineo on their skin. If you have this it will appear as a mesh dressing directly over the incision. Please leave this in place until your follow up with orthopedics. 3. If you have lots of drainage when you get home (and it is before 12/18/2019), remove the operative dressing and replace it with dry sterile gauze. [...] as much as possible. Call your doctor ([phone]) if you develop: 1. Fever greater than 100.5 2. Severe nausea or vomiting 3. Increasing pain that is not controlled by pain medications 4. Increasing redness, swelling, or drainage from incisions 5. Change in sensation FOLLOW-UP APPOINTMENTS: 1. You will have follow-up appointments at [facility] as indicated below in Future Appointment and Orders. 2. You will need to have x-rays prior to your follow-up appointment on 01/23/2020. Please come to Radiology, desk , 1 hour BEFORE that appointment for those x-rays. Future Appointments Date Time Provider Department Center 01/23/2020 8:30 AM [facility] DX ROOM 1 Xray [facility] Rad 01/23/2020 9:30 AM Walter Rae MD [facility] ORTH [address] [place] [address] 01/23/2020 11:00 AM [facility] DX ROOM 3 Xray [facility] Rad If you have questions or concerns: Monday through Monday, 8 AM - 5 PM, please call Dr. Rober Bliss MD's office at . If it is after 5 PM, the weekend, or holidays, please call and ask to speak with theOrthopedic resident on-call. General Instructions None Future Appointments and Orders Future Appointments and Orders Future Appointments Provider Department Dept Phone 01/23/2020 8:30 AM [facility] DX ROOM 1 XRay at [facility] Arrive at: [facility] Manager Area [phone] Please go to [facility] Area 3T ([place] Location). 01/23/2020 9:30 AM Walter Rae MD Orthopaedics at [facility] Arrive at: [facility] Area [phone] 01/23/2020 11:00 AM [facility] DX ROOM 3 XRay at [facility] Arrive at: [facility] Area [phone] Please go to [facility] Area 3T ([place] Location). Future Orders Complete By Expires Referral to Home Health - at DISCHARGE [MEV4894 CPT(R)] As directed Process Instructions: Scheduling Instructions: Comments: DOCUMENTATION FOR VNA SERVICES (INCLUDING PATIENTS WITH MEDICARE COVERAGE BEING DISCHARGED HOME WITH VNA SERVICES AND/OR HOSPICE SERVICES) PATIENT'S LOCATION: Gunnar Morin Discharge to own home: [address] [place] [address] Smt Technician's Name: self/patient In discussion with the attending physician, it is certified that this patient is under their care and that they, or a nurse practitioner, clinical nurse specialist or physician's reproductive healthcare assistant who is working directly with them, had a face to face encounter that meets the physician face to face encounter requirements with this patient on 12/12/2019 The encounter with the patient was in whole, or in part, for the following medical condition, whichis the primary reason for home health care services: s/p L total knee revision arthroplasty 12/11/2019 In discussion with the primary medical team, it is certified that, based on their findings, the indicated services are medically necessary and appropriate for home health services. HOME HEALTH AGENCY: [facility]. PHONE: [phone] FAX: [phone] Correction(SN) eval if indicated on admission visit Activity: WBAT LLE Closure: Resorbable sutures Dressing: mepilex x 7 days Anticoagulation: ASA 81mg BID for 30 days Do not lift the edge of the mepilex dressing to observe the incision; this dressing needs to stay in place until 7 days after surgery. Continue PT rehab for balance, endurance, joint mobility, ROM, Strength, TKA protocol FOR MEDICARE ONLY: (please delete this section if not Medicare) In discussion with the attending physician, it is certified that the clinical findings support thatthis patient is homebound ;i.e. absences from home require considerable and taxing effort due to: requires assistance of another to navigate community surfaces Please note that any additional orders needs or changes will need to be obtained from this patient's PCP: Phoenix Guzmán DO [address] [place] [address] All VNA agencies which cover patient's residence area have been reviewed, either verbally or in writing, and patient/family have chosen the indicated home health agency. Questions: Agency name and contact information: [facility] Patient location post discharge: home What services are requested: Physical Therapy Start date: Responsible MD post discharge contact info: Primary Care Provider: Phoenix Guzmán DO [phone] Discharge References/Attachments None documented in this encounter Discharge Instructions * Patient Instructions* Julia Soriano, ENGINE DYNAMOMETER TESTER - 12/12/2019 10:34 AM EDT Activity: 1. Your weight-bearing status is - weight bearing as tolerated of left leg. 2. Remember to use a walker or crutches at all times for balance and protection. Your physical therapist may progress you to using a cane when appropriate. 3. Flexion AND extension are important to work on at home. You should NOT place a pillow under youroperative knee. To help with extension you can place a pillow under your heel or lower leg or placed lengthwise along the operative leg. Again DO NOT place a pillow under the operated knee for comfort. Anticoagulation: Aspirin - You are being discharged on enteric-coated Aspirin 81 mg by mouth twice a day. Continue this for 30 days after surgery. After your dose on 01/10/2020 stop the Aspirin, unless you are told otherwise by your Orthopedic surgeon. Take this medication with food or large amounts(240 mL) of water or milk to minimize GI irritation. On 01/11/2020, you may resume your usual dailyAspirin. Diet: Resume your usual home diet but increase your intake of fluids and fiber while you are on narcotic pain meds to prevent constipation. Driving: None until [...] bowel movement. You can also take an sarr-fvh-qdehaez medication, Miralax if needed to combat constipation. 2. If you need a renewal on your narcotic pain medication, you need to give the Orthopedic clinic enough time to process your request. This can take up to three days, so plan accordingly. 3. Continue acetaminophen (Tylenol) 1,000mg every 8 hours around the clock until 12/21/2019 (for tendays after your surgery). This can be effective in controlling pain along with your other medications. After that you can take Tylenol as needed per package insert. Do not take more than 3,000mg of acetaminophen in a 24 hour period. 4. You have been discharged on a short acting narcotic, oxycodone. You will be on this medication for a limited period of time only. Take only enough pain medication to control your pain. As your pain lessens, taper down and off this medication as tolerated. 5. You are being discharged on prescription strength naproxen (Aleve). This medication is a type ofnonsteroidal anti-inflammatory (NSAID). This will help with your pain and inflammation. Take this twice a day for the next 6 weeks. Your last dose will be on 01/22/2020. If you no longer are requiring the narcotic pain medication you may change the way you take the prescribed naproxen and instead take twice a day as needed. 6. You are being discharged on a proton pump inhibitor (Prilosec OTC). This will decrease stomach irritation that may be caused by NSAIDs. Take this daily for the next 6 weeks while you are on the NSAID. 7. You are being discharged on gabapentin (Neurontin), a non-narcotic medication that will help with your pain at night and allow you to sleep better. Take this at night for the next 4 weeks. Shower (internal sutures): 1. You can shower but remember your activity limitations and always have a chair available for balance and protection. DO NOT submerge the dressing/incision. 2. (Mepilex) Do not let water run over the operative dressing. If it becomes wet lightly pat the dressing dry. DO NOT submerge the incision. When this operative dressing is removed you can let water gently run over the incision. Wound (Mepilex): 1. You do NOT have any external [place] or sutures in place. Your sutures are internal and will be absorbed over time. 2. You have a Mepilex dressing in place. Do not lift the edge of the Mepilex dressing to inspect the incision, it will not re-adhere. Remove your operative dressing 7 days after your surgery (12/18/2019). When it is removed you can leave the incision open to air or cover it with a light dressing. Some patients have an additional item called Prinlisa on their skin. If you have this it will appear as a mesh dressing directly over the incision. Please leave this in place until your follow up with orthopedics. 3. If you have lots of drainage when you get home (and it is before 12/18/2019), remove the operative dressing and replace it with dry sterile gauze. [...] as much as possible. Call your doctor ([phone]) if you develop: 1. Fever greater than 100.5 2. Severe nausea or vomiting 3. Increasing pain that is not controlled by pain medications 4. Increasing redness, swelling, or drainage from incisions 5. Change in sensation FOLLOW-UP APPOINTMENTS: 1. You will have follow-up appointments at [facility] as indicated below in Future Appointment and Orders. 2. You will need to have x-rays prior to your follow-up appointment on 01/23/2020. Please come to Radiology, desk 3T, 1 hour BEFORE that appointment for those x-rays. Future Appointments Date Time Provider Department Center 01/23/2020 8:30 AM [facility] DX ROOM 1 Xray [facility] Rad 01/23/2020 9:30 AM Walter Rae MD [facility] ORTH 3C [facility] 01/23/2020 11:00 AM [facility] DX ROOM 3 Xray [facility] Rad If you have questions or concerns: Monday through Monday, 8 AM - 5 PM, please call Dr. Rober Bliss MD's office at . If it is [...] as of this encounter Progress Notes * Dionna Kearney - 12/12/2019 1:57 PM EDT Patient discharged to home with [facility]. D/C summary faxed to [facility]. IV removed, AVS reviewed, questions encouraged and answered. Patient and family report no further questions or concerns at this time, see d/c summary and flowsheets for additional details. * Seth Zhu - 12/12/2019 6:39 AM EDT ORTHOPAEDIC SURGERY INPATIENT PROGRESS NOTE Patient Name: Gunnar Morin Age: 74 y.o. Surgery/Issue: Left Total Knee Revision Arthroplasty Attending: Dr. Bliss Date of surgery: 12/11/2019 SUBJECTIVE / INTERVAL HISTORY: No acute events Pain well controlled Required straight cath x1 Has not been out of bed yet AM labs pending FOCUSED REVIEW OF SYSTEMS: as above. Active Hospital Problems Diagnosis ??? 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 12/11/19 (Izaiah) Resolved Hospital Problems No resolved problems to display. Active Non-Hospital Problems Diagnosis ??? sp R TKA on 09/21/16 Butch ??? Status post total knee replacement ??? Monitoring for anticoagulant use ??? Status post total replacement of right hip ??? 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 H/O total hip arthroplasty ??? Morbid obesity with BMI of 40.0-44.9, adult ??? 09/07/2015 S/P Left total knee arthroplasty (Dr. Rae), ? loose tibial component ??? DJD (degenerative joint disease) of knee ??? CAD (coronary artery disease) ??? Arthritis of knee ??? s/p revision R ELZBIETA with head-liner exchange 3/29/17 (Dr. Rae) with dislocation(12/2016) ??? Osteoarthritis of both knees ??? Bilateral knee pain MEDICATIONS: ??? carvediloL (Coreg) tablet 12.5 mg ??? BUpivacaine-EPINEPHrine 0.25 %-1:200,000 injection ??? sodium chloride 0.9 % (flush) flush 5 mL ??? sodium chloride 0.9 % (flush) flush 5-20 mL ??? lidocaine (XYLOCAINE) 10 mg/mL (1 %) injection 3 mg ??? polyethylene glycoL (Miralax) packet 17 g ??? senna-docusate (Pericolace) 8.6-50 mg per tablet 2 tablet ??? bisacodyl EC (Dulcolax) tablet 10 mg ??? bisacodyL (Dulcolax) suppository 10 mg ??? acetaminophen (Tylenol) tablet 1,000 mg ??? gabapentin (Neurontin) capsule 600 mg FOLLOWED BY [START ON 12/13/2019] gabapentin (Neurontin) capsule 300 mg ??? ketorolac (TORADOL) injection 15 mg ??? celecoxib (CeleBREX) capsule 200 mg ??? dexamethasone (Decadron) tablet 4 mg ??? pantoprazole EC (Protonix) tablet 20 mg ??? sodium chloride 0.9% infusion ??? clindamycin (CLEOCIN) 600mg in dextrose 5% 50mL ??? oxyCODONE (Roxicodone) tablet 5-15 mg ??? ondansetron (Zofran) tablet 4 mg OR ondansetron (ZOFRAN) injection 4 mg ??? aspirin EC tablet 81 mg ??? sodium chloride 0.9% 1,000 mL (12/11/19 1742) OBJECTIVE: Temp: [36 ??C (96.8 ??F)-37.2 ??C (99 ??F)] Heart Rate: [74-93] Resp: [12-34] BP: (114-168)/(59-96) Intake/Output Summary (Last 24 hours) at 12/12/2019 0639 Last data filed at 12/12/2019 0350 Gross per 24 hour Intake 2560 ml Output 1625 ml Net 935 ml Body mass index is 40.01 kg/m??. Exam: General: NAD, awake/alert CV: Regular rate Resp: Breathing comfortably on 2L NC LLE: Dressing c/d/i. In cryocuff. Motor intact to EHL, FHL, TA. Sensation intact in foot/calf. Brisk capillary refill distally. Lab Results Component Value Date NA 139 12/02/2017 K 4.5 12/02/2017 CL 103 12/02/2017 CO2 26 12/02/2017 BUN 17 12/02/2017 CREATININE 1.22 12/02/2017 GLUCOSE 133 12/02/2017 GLUCFASTING 100 (H) 07/11/2015 CALCIUM 7.9 (L) 12/02/2017 Lab Results Component Value Date WBC 5.2 08/08/2019 HGB 15.9 08/08/2019 HCT 49.2 (H) 08/08/2019 MCV 98.2 (H) 08/08/2019 PLATELET 255 08/08/2019 Lab Results Component Value Date INR 1.5 (A) 12/28/2017 INR 1.1 12/02/2017 ASSESSMENT / PLAN: Gunnar Morin is a 74 y.o. male 1 Day Post-Op s/p L total knee revision arthroplasty. Progressing well post-operatively. Some post-op urinary retention, will observe for improvement. Plan to mobilize with PT, discharge plan pending hospital course. Activity: WBAT LLE Closure: Resorbable sutures Dressing: mepilex x 7 days Drain: none Anticoagulation: ASA 81mg BID for 30 days Antibiotics: Clindamycin x 24 hours Consults: PT Dispo:home vs rehab per PT Seth Zhu MD 12/12/2019 Future Appointments Date Time Provider Department Center 01/23/2020 8:30 AM [facility] DX ROOM 1 MH Xray [facility] Rad 01/23/2020 9:30 AM Watler Rae MD [facility] ORTH 3C [facility] 01/23/2020 11:00 AM [facility] DX ROOM 3 MH Xray [facility] Rad * Salima March MD - 12/11/2019 9:15 PM EDT ORTHOPAEDIC SURGERY INPATIENT PROGRESS NOTE Patient Name: Gunnar Morin Age: 74 y.o. Surgery/Issue: Left Total Knee Revision Arthroplasty Attending: Dr. Bliss Date of surgery: 12/11/2019 SUBJECTIVE / INTERVAL HISTORY: Denies CP, SOB, nausea, vomiting, numbness/weakness. Pain well controlled. FOCUSED REVIEW OF SYSTEMS: as above. Active Hospital Problems Diagnosis ??? 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 12/11/19 (Izaiah) Resolved Hospital Problems No resolved problems to display. Active Non-Hospital Problems Diagnosis ??? sp R TKA on 09/21/16 Butch ??? Status post total knee replacement ??? Monitoring for anticoagulant use ??? Status post total replacement of right hip ??? 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 H/O total hip arthroplasty ??? Morbid obesity with BMI of 40.0-44.9, adult ??? 09/07/2015 S/P Left total knee arthroplasty (Dr. Rae), ? loose tibial component ??? DJD (degenerative joint disease) of knee ??? CAD (coronary artery disease) ??? Arthritis of knee ??? s/p revision R ELZBIETA with head-liner exchange 06/29/16 (Dr. Rea) with dislocation(12/2016) ??? Osteoarthritis of both knees ??? Bilateral knee pain MEDICATIONS: ??? BUpivacaine-EPINEPHrine 0.25 %-1:200,000 injection ??? acetaminophen (Tylenol) tablet 1,000 mg ??? ketorolac (TORADOL) injection 15 mg ??? sodium chloride 0.9% infusion ??? clindamycin (CLEOCIN) 600mg in dextrose 5% 50mL ??? oxyCODONE (Roxicodone) tablet 5-15 mg ??? sodium chloride 0.9% 1,000 mL (12/11/19 1742) OBJECTIVE: Temp: [36 ??C (96.8 ??F)-37.2 ??C (99 ??F)] Heart Rate: [74-93] Resp: [12-34] BP: (128-168)/(80-96) Intake/Output Summary (Last 24 hours) at 12/11/2019 1920 Last data filed at 12/11/2019 1643 Gross per 24 hour Intake 1200 ml Output 250 ml Net 950 ml Body mass index is 40.01 kg/m??. Exam: General: NAD, awake/alert CV: Regular rate Resp: Breathing comfortably on 2L NC LLE: Dressing c/d/i. In cryocuff. Motor intact to EHL, FHL, TA. Sensation intact in foot/calf. Brisk capillary refill distally. Lab Results Component Value Date NA 139 12/02/2017 K 4.5 12/02/2017 CL 103 12/02/2017 CO2 26 12/02/2017 BUN 17 12/02/2017 CREATININE 1.22 12/02/2017 GLUCOSE 133 12/02/2017 GLUCFASTING 100 (H) 07/11/2015 CALCIUM 7.9 (L) 12/02/2017 Lab Results Component Value Date WBC 5.2 08/08/2019 HGB 15.9 08/08/2019 HCT 49.2 (H) 08/08/2019 MCV 98.2 (H) 08/08/2019 PLATELET 255 08/08/2019 Lab Results Component Value Date INR 1.5 (A) 12/28/2017 INR 1.1 12/02/2017 ASSESSMENT / PLAN: Gunnar Morin is a 74 y.o. male Day of Surgery s/p L total knee revision arthroplasty. Progressing well with stable vitals. Activity: WBAT LLE Closure: Resorbable sutures Dressing: mepilex x 7 days Drain: none Anticoagulation: ASA 81mg BID for 30 days Antibiotics: Clindamycin x 24 hours Consults: PT Dispo:home vs rehab per PT Salima March MD 12/11/2019 Future Appointments Date Time Provider Department Center 01/23/2020 8:30 AM [facility] DX ROOM 1 MH Xray [facility] Rad 01/23/2020 9:30 AM Walter Rae MD [facility] ORTH 3C [facility] 01/23/2020 11:00 AM [facility] DX ROOM 3 MH Xray [facility] Rad * Dionna Kearney - 12/11/2019 6:22 PM EDT Report received from INSTRUMENTS SALES REPRESENTATIVEMICHAELA Casas. XR completed. 1840 Pt arrived on unit. VSS, A/Ox4, denies chest pain and SOB. Denies N/T to LLE, denies pain. Cryocuff in place. 4LNC in place r/t desat with sleep. RN will continue to monitor and help pt reach d/c goals. * Yessenia Ames RN - 12/11/2019 5:30 PM EDT Arrived from OR in bed. Attached to monitors and alarms set appropriately for patient. Left knee dressing CDI with cryocuff in place. Handoff given to MICHAELA Daly documented in this encounter H&P Notes * Seth Zhu - 12/11/2019 12:41 PM EDT The patient's history and physical exam have been reviewed and completed. There has been no interval change from that of the pre-operative history and physical exam done within the last 30 days. Exam: RRR Nonlabored respirations Site marked Consent reviewed, plan to proceed with surgery. documented in this encounter Miscellaneous Notes * Initial Assessments - Magaly العراقي RN - 12/12/2019 11:02 AM EDT Office of Care Management Assessment Medical record reviewed. Plan of care and patient status discussed with direct care RN and/or Care Team. Screening:. Present on Admission: ??? 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 Morbid obesity with BMI of 40.0-44.9, adult Patient has not been admitted to a hospital within the last 30 days. Patient receiving hospital care under IPI- SDP Admission (IP) status. Admission order reviewed. Specimen Information: Nasopharyngeal Swab Symptoms->Surveillance ?? Component Value Flag Ref Range Units Status Rapid SARS-CoV-2 RNA Not Detected Not Detected Final Primary Insurance on file: MEDICARE Secondary Insurance on file:@ Prescription Insurance: Yes Primary care provider on file: Phoenix Guzmán DO [phone] Advance Directive on file and Code Status: Received, Attempt Cardiopulmonary Resuscitation - Inpatient Functional Status prior to admission: independent ,drives Functional Status current: assist of staff Living Situation:house, 2 level, bedroom on second floor, [address] [place] [address] Supports: spouse Sussy, available to provide support at home DME:Has tre MEJÍA. Home Health: [facility] for PT pended/routed This author reviewed a list of Home Health Agencies/DME vendors which serve their preferred geographic area. Affiliations were reviewed with them and they were educated about their right to choose where referrals are placed. Patient requests referral to [facility] PHONE: [phone] FAX: [phone] Expected date of discharge: today Assessment: Patient with no apparent or limited RNCM/SW needs at this time. No housing, transportation, insurance, resources concerns identified at this time. Supports in place to achieve a safe post-hospital transition. No identified barriers to accessing necessary care and/or follow-up after discharge. Plan: Patient to d/c to home via private car when medically ready. conceptor/Dish Technician will continue to follow patient???s progress and remain available if situation changes for coordination of care, psychosocial support and/or discharge planning. Magaly العراقي, RN Pager [phone] * Plan of Care - Jonathon Denise, PT - 12/12/2019 10:35 AM EDT Physical Therapy Evaluation Patient profile: Gunnar Morin is a 74 y.o. male admitted on 12/11/[address] Kerr att. providers found for s/p L TKA revision arthroplasty. Patient with the following active problems: Past Medical History: Diagnosis Date ??? Cancer melanoma penis-pt. here at [facility] ??? Heart valve disease told he has [...] 3.79) performed by Carina Patton MD at [facility] OSC ??? PRO INTRAOP SENTINEL LYMPH ID W/DYE INJECTION Midline 01/19/2017 INTRAOPERATIVE ID (MAPPING) SENTINEL LYMPH NODE,INCLUDES INJECTION (WRVU 2.5) performed by Carina Patton MD at [facility] ??? PRO REVISE KNEE JOINT REPLACE, ALL PARTS Left 12/11/2019 @TOTAL KNEE REVISION ARTHROPLASTY, COMPLETE (WRVU 27.11) performed by Rober Bliss MD at [facility] OR ??? PRO REVISE TOTAL HIP REPLACEMENT Right 06/29/2016 @TOTAL HIP REVISION ARTHROPLASTY, COMPLETE (WRVU 30.28) performed by Walter Rae MD at [facility] OR ??? PRO REVISE TOTAL HIP REPLACEMENT Right 12/01/2017 @TOTAL HIP REVISION ARTHROPLASTY, COMPLETE (WRVU 30.28) performed by Italo Hanna MD at [facility] OR ??? PRO TOTAL KNEE ARTHROPLASTY Left 09/07/2015 @TOTAL KNEE ARTHROPLASTY performed by Walter Rae MD at [facility] OR ??? PRO TOTAL KNEE ARTHROPLASTY Right 09/21/2016 @TOTAL KNEE ARTHROPLASTY (WRVU 20.72) performed by Walter Rae MD at [facility] OR ??? XR JOINT ASPIRATION - LARGE JOINT LEFT Left 09/12/2019 XR Fluoro Guided Joint Aspiration Large Left 09/12/2019 Saul Alan MD [facility] RAD XRAY Active Non-Hospital Problems Diagnosis ??? sp R TKA on 09/21/16 Butch ??? Status post total knee replacement ??? Monitoring for anticoagulant use ??? Status post total replacement of right hip ??? 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 H/O total hip arthroplasty ??? 09/07/2015 S/P Left total knee arthroplasty (Dr. Rae), ? loose tibial component ??? DJD (degenerative joint disease) of knee ??? CAD (coronary artery disease) ??? Arthritis of knee ??? s/p revision R ELZBIETA with head-liner exchange 06/29/16 (Dr. Rae) with dislocation(12/2016) ??? Osteoarthritis of both knees ??? Bilateral knee pain Social History: Home set-up: He lives in [facility] with his . They are both retired Bathroom Set-up: see OT note Stairs: 2 PHUC with a post to hold onto then 13 steps up to the bedroom with a railing on the L handside Baseline Mobility: independent prior Equipment at home: FWW, canes, crutches, rollator Fall history: none reported Precautions/Special Considerations: WBAT LLE Mobility and Positioning Recommendations: ?? Pt. to utilize FWW and SBA for ambulation and transfers with nursing. ?? Please encourage up to chair for meal times as able. ?? Pt encouraged to ambulate frequently with staff, getting into the bathroom for toileting and walking out in the lamar >/= 3 times daily as able. Subjective: ???If the tape wasn't there I could bend my knee to 90 degrees?? Objective: Pt seen for evaluation today. Pain: Number Location At rest 3/10 L knee With activity 3/10 L knee Vital Signs: Stable on RA Mental Status: alert, oriented to person, place, and time Vision: WNL Skin: mepilex over incision Musculoskeletal: ROM: L knee ~10-75 degrees with AROM Strength: L knee grossly 3/5 others WFL Sensation: intact to light touch Bed Mobility: Supine to Sit: not assessed Sit to Supine: not assessed Transfers: Sit to Stand: S Stand to Sit: S Bed to Chair: S with FWW Gait: Distance: ~150' Device used: FWW Level of assist: S Gait mechanics: step through pattern, antalgic gait noted on the LLE with decreased knee extension Stairs: FOS w/ railing on the L hand side, vc's for sequencing & technique, ascending/descending with step to pattern Balance: Sitting Static: good Sitting Dynamic: good Standing Static: good Standing Dynamic / Gait: Fair with FWW Therex: Given exercise handout for TKA to include Ankle pumps, quad sets, adductor squeezes, glute squeezes, SAQ, LAQ, seated knee flexion Instructed to perform x10 reps x3 daily Only performed LAQ and seated knee flexion x10 with vc's for added force to push LLE further into knee flexion Education: patient has been educated on Transfers, Assistive device/technique, Stairs, Exercise, Safety , Precautions/protocol, Gait , Home program, Role of therapy and Discharge planning and verbalizes and demonstrates understanding. Patient status, treatment, and mobility recommendations discussed with nursing. Assessment: Gunnar Morin was seen today for physical therapy evaluation. Patient presents with the following impairments: impaired skin integumentary, decreased LE strength/ROM secondary to revision of knee replacement. Patient has resultant functional limitations in gait and overall functional mobility. Patient provided with education and has met inpatient PT goals. Safe to discharge home once medically cleared. Discharge Recommendations: Based on the current findings, home with assist and home with home PT when medically ready for hospital discharge. Consult Recommendations: No other consults recommended at this time. Equipment needs: No equipment necessary Plan: evaluation only for therapy including Patient/family understand and agree with plan as statedabove. 2017 PT Evaluation Code Rationale: ?? Diagnosis & Pertinent Co-Morbidities, personal factors, and present illness affecting Plan of Care: (see above); Additional personal factors or co- morbidities that impact plan: ?? Total # of Factors: 0 1-2 3+ x ?? Examination of body system impairments, functional limitations and behaviors, and/or participation restrictions. Addressing 1-2 elements Addressing 3 + elements Addressing 4 + elements x ?? Clinical presentation: See assessment above. Stable/Uncomplicated Evolving/Fluctuating Symptoms Unstable/Unpredictable x ?? Clinical decision making of low complexity based on pt's functional performance as outlined in this evaluation. Time IN / OUT: [id number] (derek, RICK) Jonathon Denise PT Pager: [phone] Physical Therapy Inpatient Rehabilitation Department * Plan of Care - Reva Rosa RN - 12/12/2019 7:06 AM EDT Problem: Patient Care Overview Goal: Plan of Care Review Outcome: Ongoing (Interventions Implemented as Appropriate) 12/11/19 1843 12/11/19 2103 Coping/Psychosocial Plan Of Care Reviewed With -- patient Plan of Care Review Progress progress toward functional goals as expected -- OUTCOME EVALUATION NOTE: OUTCOME SUMMARY: AOx4, VSS, saturating mid 90s on 2L O2 via NC, Incision dressing to LLE c/d/i Pt has full sensation to LLE & denies pain. Cryocuff in place for comfort Voiding small amounts w/ high PVRs, straight cath for 850 at 0350, bladder scan at 0645 for 541mL PLAN MOVING FORWARD: PT/OT Void Discharge planning INDIVIDUALIZED FALL PREVENTION INTERVENTIONS: Patient-specific fall risk factors per assessment: [current deficits]: Recent anesthesia, IV line Assistance [level of assistance required for transfers and ambulation]: Not oob since OR Supervision [direct monitoring required during toileting and ADLs]: Eyes on, urinal in reach Surveillance [continuous indirect monitoring]: Deny, bed alarm Patient-specific fall prevention interventions for sensory deficits provided, if applicable: [X] No CPG GOAL OUTCOME EVALUATION: * Op Note - Seth Zhu - 12/11/2019 5:11 PM EDT [facility] Operative Note Patient Name: Gunnar Morin : [id number] MR#: [id number] Case Date: 12/11/2019 Surgeon: Surgeon(s) and Role: * Rober Bliss MD - Primary * Seth Zhu MD - Resident Preoperative diagnosis: Left TKA tibial component aseptic loosening Postoperative diagnosis: Left TKA tibial component aseptic loosening Procedure(s) (LRB): @TOTAL KNEE REVISION ARTHROPLASTY, COMPLETE (WRVU 27.11) (Left) MODIFIER ATTUNE REVISION ROTATING PLATFORM RP KNEE SYSTEM DEPUY (Left) Findings: Grossly loose tibial component. Well-fixed femoral and patellar components. No purulence or signs of infection. Anesthesia: General Estimated Blood Loss: 250 mL Specimens removed during surgery: None Drains: None Surgical Closure: Primary Closure - skin incision is completely closed without any wires, carter, drains or other devices Disposition: awakened from anesthesia, extubated and taken to the recovery room in a stable condition, having suffered no apparent untoward event. Condition: doing well without problems (Please see the Surgical Encounter Summary for any Implant and Specimen details pertinent to this patient.) HPI/Surgical Indications: Gunnar Morin is a 74 y.o. male with a history of left total knee arthroplasty in September 2015 who presented with left knee pain and bone scan consistent with loosening of the tibial component. Inflammatory markers and knee aspiration were not concerning for infection. The risks, benefits, and alternatives to revision of the tibial component for aseptic loosening were discussed with the patient heelected to proceed with surgery. Procedure Description: The patient was correctly identified in the preoperative holding area, the proper operative site was marked and consent was confirmed by the team. The patient was wheeled to the operating room and placed in the supine position on the operating table where general anesthesia was administered. All bony prominences were well padded. Preoperative antibiotics were given. A time-out was performed to confirm patient identity, planned surgery, and site according to the [facility] Julian Protocol. A thigh-high tourniquet was placed. The left lower extremity was prepped with chlorhexidine, alcohol, and ChloraPrep then draped in sterile fashion. The left leg was exsanguinated with an Esmarch bandage and the tourniquet inflated to 250 mmHg. The patient's previous midline knee incision was incised and dissection was carried deep with a scalpel to the level of the quadriceps fascia. Curved Mayoscissors were used to develop medial and lateral full-thickness skin flaps. A medial parapatellar arthrotomy was made using the Bovie. A partial synovectomy was performed in the suprapatellar pouch. Scar tissue was excised surrounding the patellar component. The patella was then everted, and the knee was brought into flexion. The PCL and any remaining soft tissue in the intercondylar notch was excised. A salad fork was used to sublux the tibia anteriorly. The tibial component was noted to be grossly loose and a bone tamp and mallet were used to remove tibial component. We then turned our attention to preparing the tibia for the revision component. The 9 mm starting reamer was introduced into the canal, and the cement mantle was breached. We thensuccessively reamed the canal up to16 mm where the reamer was felt to make good cortical contact within the tibia. The intramedullary mount for the tibial cutting guide was placed over the reamer stem. The cutting guide was then positioned along the proximal tibia and cutting depth was checked withan honey wing. The cutting block was pinned in place and the reamer was removed from the canal manually with a T-handle. An oscillating saw was used to make the proximal tibial resection which included the baseplate cement mantle. The remaining cement mantle from the canal was then removed with [place] curette. Next the tibial sleeve broach was introduced and impacted until it was flush with theproximal tibia. An oscillating saw was again used to cut the proximal tibia flush with the implant.The trial tibial sleeve was then attached to the trial baseplate and impacted into position. The tibial baseplate rotation was set and the locking screw was tightened with a torque limiting screwdriver. The keel punch was then impacted with a mallet. The trial implants were removed and the knee wascopiously irrigated. The final implant was assembled on the back table and medium viscosity cement was applied to the tibial baseplate. The final tibial implant including a size 7 baseplate, 45 mm sleeve, and 16 x 60 mm stem was inserted and impacted into place. Excess cement was removed with a Free r elevator. The rotating platform polyethylene was inserted and the knee was reduced. Range of motion and stability were checked and found to be adequate. The cement was then allowed to harden and the tourniquet was let down after a total of 92 minutes. Hemostasis was achieved with Bovie electrocautery and the knee was then thoroughly irrigated with normal saline. The arthrotomy was closed with running 0 strata fix suture. The deep layers were closed with combination of 0 and 2-0 Vicryl suture, the skin was approximated with running 3-0 Monocryl and Dermabond.A silver Mepilex dressing was applied. The patient was awoken from the anesthetic, transferred back to the hospital bed, and taken to postanesthesia care unit in stable condition. All sponge and needle counts were correct at the end of the case. There were no obvious intraoperative complications. Dr. Bliss was present for all critical portions of the procedure. Infection Bundle used? N/A Implant Name Type Inv. Item Serial No. Multimedia Instructional Designer Lot No. [id number] No. Used Action CEMEN,GENTA,VISC,MED ([id number]) (AUTOREQ) - [id number] IMPLANTS CEMEN,GENTA,VISC,MED ([id number]) (AutoReq) [facility] [id number] Left 1 Implanted STEM,ATUN,PFIT,STR,[id number] ([id number]) (AUTOREQ) - [id number] IMPLANTS STEM,ATUN,PFIT,STR,[id number] ([id number]) (AutoReq) [employer] OSKAR [id number] Left 1 Implanted BASE,ATUN,REV,TIB,NACHO,SZ7 ([id number]) (AUTOREQ) - [id number] IMPLANTS BASE,ATUN,REV,TIB,NACHO,SZ7 ([id number]) (AutoReq) [employer] OSKAR [id number] Left 1 Implanted SLEEV,ATUN,FULL-POR,M-L,45MM ([id number]) (AUTOREQ) - [id number] IMPLANTS SLEEV,ATUN,FULL-POR,M-L,45MM([id number]) (AutoReq) [employer] OSKAR [id number] Left 1 Implanted INSER,ATTUNE,CR,RP,SZ9,14MM ([id number]) (AUTOREQ) - [id number] IMPLANTS INSER,ATTUNE,CR,RP,SZ9,14MM ([id number]) (AutoReq) [employer] OSKAR [id number] Left 1 Implanted Associated attestation - Rober Bliss MD - 12/12/2019 11:11 AM EDT Attestation: Case Date: 12/11/2019 I was present and I participated during the entire procedure (does not need to include opening and closing). ROBER BLISS MD 12/12/2019 documented in this encounter Plan of Treatment Upcoming Encounters Date Type Department Care Team (Late st Contact Info) Description 10/31/2023 9:15 AM EDT Office Visit Dermatology at [facility] [address] [place] [address] Dawson Broderick MD [facility] [address] [place] [address] 07/23/2024 9:30 AM EDT Office Visit Dermatology at [facility] [address] [place] [id number] Dawson Broderick MD [facility] [address] MY[place] [address] documented as of this encounter Procedures Procedure Name Priority Date/Time Associated Diagnosis Comments HEMOGRAM Routine 12/12/2019 7:35 AM EDT DIFFERENTIAL, AUTOMATED Routine 12/12/2019 7:35 AM EDT HC CBC,PLT & AUTO DIFF Routine 12/12/2019 7:35 AM EDT BASIC METABOLIC PANEL (NON-FASTING) Routine 12/12/2019 7:35 AM EDT XR TIBIA FIBULA LEFT STAT 12/11/2019 6:30 PM EDT MODIFIER ATTUNE REVISION ROTATING PLATFORM RP KNEE SYSTEM DEPUY 12/11/2019 1:42 PM EDT Status post total left knee replacement Revise Knee Joint Replace, All Parts (74023) 12/11/2019 1:42 PM EDT Status post total left knee replacement RAPID COVID-19 PCR ([facility]) STAT 12/11/2019 12:19 PM EDT EKG 12-LEAD STAT 12/11/2019 10:54 AM EDT Coronary artery disease, angina presence unspecified, unspecified vessel or lesion type, unspecified whether [place]apai-apache or transplanted heart IMPLANTABLE DEVICES SCAN 12/11/2019 12:00 AM EDT documented in this encounter Results * (ABNORMAL) Differential, Automated (12/12/2019 7:35 AM EDT) Neutrophils % 85.5 % [facility] Neutr Abs (ANC) 10.57(H) 1.70 - 6.10 x10(3)/mc L [facility] Lymphocytes % 5.5 % [facility] Lymphocytes Abs 0.7(L) 0.9 - 3.2 x10(3)/mc L [facility] Monocytes % 8.3 % [facility] Monocyte Abs 1.0(H) 0.3 - 0.9 x10(3)/ L [facility] Eosinophils % 0.0 % [facility] Eosinophils Abs 0.0 0.0 - 0.4 x10(3)/[facility] Basophils % 0.1 % [facility] Basophils Abs 0.0 0.0 - 0.1 x10(3)/[facility] Immature Gran % 0.60 % [facility] Comment: Immature granulocytes(IG's)percentage and absolute count will include metamyelocytes, myelocytes, and promyelocytes. Blood smears from CBCs yielding IG's will be scanned manually for concordance. If this scan disagrees with the automated IG or if promyelocytes are noted, a manual differential will be performed. Geovanna Gran Abs 0.08(H) 0.00 - 0.04 x10(3)/[facility] Blood specimen (specimen) 12/12/2019 7:35 AM EDT 12/12/2019 7:43 AM EDT Narrative Resulting Agency Comment Spec In Lab Salima aMrch MD HEMATOLOGY ORDERABLE S [facility] [place] [place] [address] * (ABNORMAL) Hemogram (12/12/2019 7:35 AM EDT) WBC 12.4(H) 4.0 - 9.5 x10(3)/[facility] RBC 4.24(L) 4.58 - 5.54 x10(6)/[facility] Hemoglobin 13.9 13.7 - 16.5 gm/dL [facility] Hematocrit 41.2 40.5 - 48.5 % [facility] MCV 97.2(H) 82.9 - 93.1 fL [facility] MCH 32.8(H) 27.5 - 32.1 pg [facility] MCHC 33.7 32.0 - 35.7 gm/dL [facility] Platelets 224 145 - 357 x10(3)/[facility] RDWSD 46.9(H) 36.0 - 45.0 fL [facility] RDWCV 13.2 11.4 - 13.8 % [facility] MPV 10.1 7.6 - 12.9 [facility] nRBC % Auto 0.0 % [facility] nRBC Abs Auto 0.000 0.000 - 0.000 x10(3)/[facility] Blood specimen (specimen) 12/12/2019 7:35 AM EDT 12/12/2019 7:43 AM EDT Narrative Resulting Agency Comment Spec In Lab Salima March MD HEMATOLOGY ORDERABLE S [facility] [address] * (ABNORMAL) Basic Metabolic Panel (non-fasting) (12/12/2019 7:35 AM EDT) Glucose Lvl 149 65 - 199 mg/dL [facility] Comment:Diabetes: >=200 mg/d L plus symptoms BUN 15 10 - 20 mg/dL [facility] Creatinine 1.00 0.80 - 1.50 mg/dL [facility] Sodium 136 135 - 145 mmol/L [facility] Potassium 4.8 3.5 - 5.0 mmol/L [facility] Comment: Please note: ??Patients with WBC >100,000 may have falsely elevated Potassium levels. ??For accurate Potassium quantification in these patients send serum separator tube (gold top) for subsequent determinations. ??Contact the Clinical Chemistry Laboratory if there are any questions. Chloride 100 98 - 107 mmol/L [facility] CO2 25 22 - 31 mmol/L [facility] Anion Gap 11 5 - 15 mmol/L [facility] Calcium 8.3(L) 8.5 - 10.5 mg/dL [facility] Estimated GFR 75 >=60 mL/min/1. 73 m?? [facility] Comment: The eGFR was calculated using the CKD-EPI equation. As with all creatinine based estimates of kidney function, eGFR values calculated with the CKD-EPI equation are not accurate in patients with acute kidney failure, extremes of body mass or the acutely ill. [email or web address] eGFR 87 >=60 mL/min/1. 73 m?? [facility] Comment: The eGFR was calculated using the CKD-EPI equation. As with all creatinine based estimates of kidney function, eGFR values calculated with the CKD-EPI equation are not accurate in patients with acute kidney failure, extremes of body mass or the acutely ill. [email or web address] Blood specimen (specimen) 12/12/2019 7:35 AM EDT 12/12/2019 7:43 AM EDT Narrative Resulting Agency Comment Spec In Lab Rober Bliss MD CHEMISTRY ORDERABLES Performing Organization Address City/State/[facility] Co de Phone Number [facility] [place] [address] * XR Tibia Fibula Left (Generic) (12/11/2019 6:30 PM EDT) Anatomical Region Laterality Modality Left Digital Radiogra phy Impressions 12/11/2019 6:35 PM EDT 1. ??Interval revision of left tibial arthroplasty component with new component in its expected position. 2. ??Stable femoral component of left knee arthroplasty. 3. ??Postsurgical changes. Thank you for letting us participate in the care of this patient. For questions regarding this report, please contact the number below. ? Narrative 12/11/2019 6:35 PM EDT EXAMINATION: XR TIBIA FIBULA LEFT (GENERIC) CLINICAL HISTORY: 74-year-old male status post tibial component revision. TECHNIQUE: 4 radiographs of the left tibia-fibula were obtained. COMPARISON: Correlation is made to left knee radiographs dated August 08, 2019. FINDINGS: There has been interval revision of the tibial component of a left knee arthroplasty. ??There is intramedullary cement located distal to the device within the mid tibial diaphysis. ??The tibial component appears well-positioned without periprosthetic lucency. ??There is associated subcutaneous and intra-articular air, consistent with postsurgical change. ??There is also diffuse soft tissue swelling surrounding the surgical site. There is no fracture. ??There is no dislocation. The femoral components appears in appropriate positioning. ??There is no periprosthetic lucency to suggest loosening. There is no other radiopaque foreign body. Procedure Note Rober Franz, DO - 12/11/2019 EXAMINATION: XR TIBIA FIBULA LEFT (GENERIC) CLINICAL HISTORY: 74-year-old male status post tibial componentrevision. TECHNIQUE: 4 radiographs of the left tibia-fibula were obtained. COMPARISON: Correlation is made to left knee radiographs dated August. FINDINGS: There has been interval revision of the tibial component of a left knee arthroplasty. There is intramedullary cement located distal to thedevice within the mid tibial diaphysis. The tibial component appearswell-positioned without periprosthetic lucency. There is associated subcutaneous and intra-articular air, consistent with postsurgical change. There is alsodiffuse soft tissue swelling surrounding the surgical site. There is no fracture. There is no dislocation. The femoral components appears in appropriate positioning. There is no periprosthetic lucency to suggest loosening. There is no other radiopaque foreign body. IMPRESSION 1. Interval revision of left tibial arthroplasty component with newcomponent in its expected position. 2. Stable femoral component of left knee arthroplasty. 3. Postsurgical changes. Thank you for letting us participate in the care of this patient. Forquestions regarding this report, please contact the number below. Electronically signed by: Rober Franz [facility]([phone]), at 12/11/2019 6:35 PM Rober Bliss MD IMG DX ORDERABLES * COVID-19 PCR (12/11/2019 12:19 PM EDT) SARS-CoV-2 RNA PCR Not Detected Not Detected [facility] Comment: This result should be interpreted in combination with the clinical observations, patient history and epidemiological information. For testing of asymptomatic individuals, assay performance characteristics and clinical utility have not been evaluated. Testing for SARS-CoV-2 (Severe acute respiratory syndrome coronavirus 2, formerly known as 2019 novel coronavirus or 2019-nCoV) to aid in the diagnosis of COVID-19 is performed using the Simplexa COVID-19 Direct Assay by [employer] as authorized by the FDA issued Emergency Use Authorization (EUA). This assay is intended for In-vitro Diagnostic (IVD) use with nasopharyngeal swabs collected from individuals meeting the CDC criteria for testing. The assay is performed based on the instructions for use and additional guidance provided by the FDA. Testing is performed in the Microbiology Laboratory within the Department of Pathology and Laboratory Medicine at [facility], certified under the Clinical Laboratory Improvement Amendments of 1988 (CLIA), 42 U.S.C. section 263a, to perform high complexity tests. Assay performance has been verified according to clinical laboratory regulatory requirements. Test results are provided above. A result of Not Detected indicates that the viral RNA target is not present but does not preclude SARS-CoV-2 infection. False negative results may occur if a specimen is improperly collected, transported or handled; if amplification inhibitors are present; or if inadequate numbers of viral particles are present in the specimen. A result of Detected suggests a current or recent infection and the patient is presumed to be infected. Positive and negative predictive values for this test are highly dependent on disease prevalence. A result of Invalid indicates the inability to conclusively determine the presence or absence of SARS-CoV-2 RNA in the sample which can be due to a variety of factors. Recollection is recommended in the case of an invalid result. CDC COVID-19 criteria for testing on human specimens and clinical management guidance information are available at the CDC Coronavirus Disease 2019 (COVID-19) webpage under Information for Healthcare Professionals (https://www.cdc.gov/coronavirus/2019-ncov/hcp/index.html). SARS-CoV-2 Source [employer] Swab [facility] Nasopharyngeal swab (specimen) 12/11/2019 12:19 PM EDT 12/11/2019 2:24 PM EDT Comment:Symptoms->Surveillan ce Narrative Resulting Agency Comment Spec In Lab Lg Salazar MD MICROBIOLOGY - GENER AL ORDERABLES Performing Organization Address [facility] Co de Phone Number [facility] [place] [address] * EKG 12 Lead (12/11/2019 10:54 AM EDT) Ventricular rate 73 BPM MUSE SYSTEM Atrial Rate 73 BPM MUSE SYSTEM P-R Interval 192 ms MUSE SYSTEM QRS Duration 102 ms MUSE SYSTEM Q-T Interval 358 ms MUSE SYSTEM QTC Calculated (Bezet) 394 ms MUSE SYSTEM Calculated P [place] 32 degrees MUSE SYSTEM Calculated R [place] 21 degrees MUSE SYSTEM Calculated T [place] 0 degrees MUSE SYSTEM INTERPRETATION Normal sinus rhythm Cannot rule out Anterior infarct , age undetermined ??vs lead placement Abnormal ECG When compared with ECG of 09-NOV-2017 13:01, No significant change was found Confirmed by Diamond Galvez ([email or web address]) on 12/11/2019 12:23:10 PM MUSE SYSTEM 12/11/2019 10:5 4 AM EDT 12/11/2019 12:23 PM EDT Lg Salazar MD ECG ORDERABLES Performing Organization Address City/[facility] Co de Phone Number MUSE SYSTEM * SCAN DOC: IMPLANTABLE DEVICES (12/11/2019 12:00 AM EDT) Narrative 12/11/2019 12:00 AM EDT Ordered by an unspecified provider. Scanning Provider MEDIA MGR SCAN EXT O RDR/RSLT documented in this encounter Visit Diagnoses Diagnosis Coronary artery disease, angina presence unspecified, unspecified vessel or lesion type, unspecified whether [place]ai-apache or transplanted heart 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 12/11/19 (Jevsevar) 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 12/11/19 (Jevsevar) Morbid obesity with BMI of 40.0-44.9, adult Morbid obesity documented in this encounter Admitting Diagnoses Diagnosis Status post total left knee replacement documented in this encounter Administered Medications Inactive Administered Medications - up to 3 most recent administrations Medication Order MAR Action Action Date Dose Rate Site acetaminophen (Tylenol) tablet 1,000 mg 1,000 mg, Oral, ONCE, 1 dose, On Mon12/11/19 at 1100, Administer on arrival in Same Day Program, Day of Surgery (Day of Procedure), Routine Given 12/11/2019 11:23 AM EDT 1,000 mg acetaminophen (Tylenol) tablet 1,000 mg 1,000 mg, Oral, EVERY 8 HOURS SCHEDULED, First dose on Mon12/11/19 at 1730, Until Discontinued, Maximum dose of acetaminophen is 4000 mg from all sources in 24 hours. When ordered for pain, acetaminophen should be given even when other ordered pain medications are indicated. , Routine Given 12/12/2019 8:02 AM EDT 1,000 mg aspirin EC tablet 81 mg 81 mg, Oral, 2 TIMES DAILY, First dose on Mon12/11/19 at 2100, Until Discontinued, Routine Given 12/12/2019 8:03 AM EDT 81 mg Given 12/11/2019 8:54 PM EDT 81 mg carvediloL (Coreg) tablet 12.5 mg 12.5 mg, Oral, 2 TIMES DAILY WITH MEALS, First dose on Yara 12/12/19 at 0800, Until Discontinued, Hold for SBP <120, Routine Given 12/12/2019 8:03 AM EDT 12. 5 mg celecoxib (CeleBREX) capsule 200 mg 200 mg, Oral, 2 TIMES DAILY, First dose on Mon12/11/19 at 2100, Until Discontinued, Routine Given 12/12/2019 8:02 AM EDT 200 mg Given 12/11/2019 8:54 PM EDT 200 mg celecoxib (CeleBREX) capsule 400 mg 400 mg, Oral, ONCE, 1 dose, On Mon12/11/19 at 1100, Administer on arrival to Same Day Program, Day of Surgery (Day of Procedure), Routine Given 12/11/2019 11:22 AM EDT 400 mg clindamycin (CLEOCIN) 600mg in dextrose 5% 50mL 600 mg, Intravenous, EVERY 8 HOURS, 3 doses, First dose on Mon12/11/19 at 1730, Last dose on Mon12/12/19 at 1400, Administer over 20 Minutes, * Vancomycin, Fluoroquinolones, Clindamycin, Gentamicin, and Metronidazole should be administered within 8 hours of the preceding intraoperative dose., Recovery (Recovery-Hospital Unit), Indication for (Active or Suspected): Prophylaxis New Bag 12/12/2019 1:03 PM EDT 600 mg 150 mL/ hr Bag 12/12/2019 6:47 AM EDT 600 mg 150 mL/hr New 12/11/2019 9:11 PM EDT 600 mg 150 mL/hr dexamethasone (Decadron) tablet 4 mg 4 mg, Oral, DAILY, 2 doses, First dose on Mon12/11/19 at 2030, Last dose on Mon12/12/19 at 0900, Routine Given 12/12/2019 8:05 AM EDT 4 mg Given 12/11/2019 8:58 PM EDT 4 mg gabapentin (Neurontin) capsule 300 mg 300 mg, Oral, ONCE, 1 dose, On Mon12/11/19 at 1100, Administer on arrival in Same Day Program, Day of Surgery (Day of Procedure), Routine Given 12/11/2019 11:22 AM EDT 300 mg gabapentin (Neurontin) capsule 300 mg 300 mg, Oral, NIGHTLY, First dose on Mon12/13/19 at 2100, Until Discontinued, Routine gabapentin (Neurontin) capsule 600 mg 600 mg, Oral, NIGHTLY, 2 doses, First dose on Mon12/11/19 at 2100, Last dose on Mon12/12/19 at 2100, Routine Given 12/11/2019 8:54 PM EDT 600 mg lactated ringers infusion 1,000 mL, at 100 mL/hr, Intravenous, CONTINUOUS, Starting on Mon12/11/19 at 1100, Until Mon12/11/19 at 1835, Day of Surgery (Day of Procedure) New Bag 12/11/2019 3:50 PM EDT New Bag 12/11/2019 1:49 PM EDT New Bag 12/11/2019 11:24 AM EDT 1,000 mLs 100 mL/hr ondansetron (ZOFRAN) injection 4 mg 4 mg, Intravenous, EVERY 8 HOURS PRN, Starting on Mon12/11/19 at 1930, Until Yara 12/12/19 at 1648, Nausea, May repeat times one in 30 minutes if ineffective. If multiple antiemetics are ordered, use ondansetron first, Recovery (Recovery-Hospital Unit) ondansetron (Zofran) tablet 4 mg 4 mg, Oral, EVERY 8 HOURS PRN, Starting on Mon12/11/19 at 1930, Until Yara 12/12/19 at 1648, Nausea, Vomiting, If multiple antiemetics are ordered, use ondansetron first. PO Preferred. If patient unable to take PO, may give IV if ordered. May repeat times one in 45 minutes if ineffective., Recovery (Recovery-Hospital Unit), Routine pantoprazole EC (Protonix) tablet 20 mg 20 mg, Oral, DAILY, First dose on Mon12/11/19 at 2030, Until Discontinued, DO NOT CRUSH OR OPEN Given 12/12/2019 8:03 AM EDT 20 mg Given 12/11/2019 8:57 PM EDT 20 mg polyethylene glycoL (Miralax) packet 17 g 17 g, Oral, 2 TIMES DAILY, First dose on Mon12/11/19 at 2100, Until Discontinued, Routine Given 12/12/2019 8:01 AM EDT 17 g Given 12/11/2019 8:54 PM EDT 17 g senna-docusate (Pericolace) 8.6-50 mg per tablet 2 tablet 2 tablet, Oral, 2 TIMES DAILY, First dose on Mon12/11/19 at 2100, Until Discontinued, Routine Given 12/11/2019 8:54 PM EDT 2 tablets sodium chloride 0.9 % (flush) flush 5 mL 5 mL, Intravenous, 2 TIMES DAILY, First dose on Mon12/11/19 at 2100, Until Discontinued, Recovery (Recovery-Hospital Unit), Routine Given 12/12/2019 8:02 AM EDT 5 mLs Given 12/11/2019 8:55 PM EDT 5 mLs sodium chloride 0.9% infusion 1,000 mL, at 100 mL/hr, Intravenous, CONTINUOUS, Starting on Mon12/11/19 at 1730, Until Yara 12/12/19 at 1648, Recovery (Recovery-Hospital Unit) New Bag 12/11/2019 5:42 PM EDT 1,000 mLs 100 mL/hr tamsulosin (Flomax) capsule 0.4 mg 0.4 mg, Oral, DAILY, First dose on Yara 12/12/19 at 1215, Until Discontinued, DO NOT CRUSH OR OPEN, Routine Given 12/12/2019 11:45 AM EDT 0.4 mg documented in this encounter Active and Recently Administered Medications Times are shown in EDT. Scheduled Medication Order 12/10/2019 12/11/2019 12/12/2019 acetaminophen (Tylenol) tablet 1,000 mg (COMPLETED) 1,000 mg, Oral, ONCE, 1 dose, On Mon12/11/19 at 1100, Administer on arrival in Same Day Program, Day of Surgery (Day of Procedure), Routine 1123 (Given - Provider: Antoinette Bowling RN) acetaminophen (Tylenol) tablet 1,000 mg 1,000 mg, Oral, EVERY 8 HOURS SCHEDULED, First dose on Mon12/11/19 at 1730, Until Discontinued, Maximum dose of acetaminophen is 4000 mg from all sources in 24 hours. When ordered for pain, acetaminophen should be given even when other ordered pain medications are indicated. , Routine 1900 (Not Given - Provider: Dionna Kearney - Reason: Patient/family refused - Comment: denies pain) 0300 (Not Given - Provider: Reva Rosa RN - Reason: Patient/family refused)08 (Given - Provider: Dionna Kearney) aspirin EC tablet 81 mg 81 mg, Oral, 2 TIMES DAILY, First dose on Mon12/11/19 at 2100, Until Discontinued, Routine 2053 (Given - Provider: Reva Rosa RN) 08 (Given - Provider: Dionna Kearney) carvediloL (Coreg) tablet 12.5 mg 12.5 mg, Oral, 2 TIMES DAILY WITH MEALS, First dose on Mon12/12/19 at 0800, Until Discontinued, Hold for SBP <120, Routine 802 (Given - Provid er: Dionna Kearney) celecoxib (CeleBREX) capsule 200 mg 200 mg, Oral, 2 TIMES DAILY, First dose on Mon12/11/19 at 2100, Until Discontinued, Routine 2053 (Given - Provider: Reva Rosa RN) 08 (Given - Provider: Dionna Kearney) celecoxib (CeleBREX) capsule 400 mg (COMPLETED) 400 mg, Oral, ONCE, 1 dose, On Mon12/11/19 at 1100, Administer on arrival to Same Day Program, Day of Surgery (Day of Procedure), Routine 112 (Given - Provider: Antoinette Bowling RN) clindamycin (CLEOCIN) 600mg in dextrose 5% 50mL (COMPLETED) 600 mg, Intravenous, EVERY 8 HOURS, 1 dose, First dose on Mon12/11/19 at 1100, Administer over 20 Minutes, Day of Surgery (Day of Procedure), Indication for (Active or Suspected): Prophylaxis 1400 (Given - Provider: Patel Rowan CRNA) clindamycin (CLEOCIN) 600mg in dextrose 5% 50mL (COMPLETED) 600 mg, Intravenous, EVERY 8 HOURS, 3 doses, First dose on Mon12/11/19 at 1730, Last dose on Mon12/12/19 at 1400, Administer over 20 Minutes, * Vancomycin, Fluoroquinolones, Clindamycin, Gentamicin, and Metronidazole should be administered within 8 hours of the preceding intraoperative dose., Recovery (Recovery-Hospital Unit), Indication for (Active or Suspected): Prophylaxis 2110 (New Bag - Provider: Reva Rosa RN)2130 (Stopped - Provider: Reva Rosa RN) 0647 (New Bag - Provider: Reva Rosa RN)0707 (Stopped - Provider: Dionna Kearney)1303 (New Bag - Provider: Dionna Kearney)1323 (Stopped - Provider: Dionna Kearney) dexamethasone (Decadron) tablet 4 mg (COMPLETED) 4 mg, Oral, DAILY, 2 doses, First dose on Mon12/11/19 at 2030, Last dose on Mon12/12/19 at 0900, Routine 2057 (Given - Provider: Reva Rosa RN) 0805 (Given - Provider: Dionna Kearney) gabapentin (Neurontin) capsule 300 mg (COMPLETED) 300 mg, Oral, ONCE, 1 dose, On Mon12/11/19 at 1100, Administer on arrival in Same Day Program, Day of Surgery (Day of Procedure), Routine 112 (Given - Provider: Antoinette Bowling RN) gabapentin (Neurontin) capsule 300 mg(Linked Group 1) 300 mg, Oral, NIGHTLY, First dose on Mon12/13/19 at 2100, Until Discontinued, Routine gabapentin (Neurontin) capsule 600 mg(Linked Group 1) 600 mg, Oral, NIGHTLY, 2 doses, First dose on Mon12/11/19 at 2100, Last dose on Mon12/12/19 at 2100, Routine 2053 (Given - Provider: Reva Rosa RN) pantoprazole EC (Protonix) tablet 20 mg 20 mg, Oral, DAILY, First dose on Mon12/11/19 at 2030, Until Discontinued, DO NOT CRUSH OR OPEN 2056 (Given - Provider: Reva Rosa RN) 802 (Given - Provider: Dionna Kearney) polyethylene glycoL (Miralax) packet 17 g 17 g, Oral, 2 TIMES DAILY, First dose on Mon12/11/19 at 2100, Until Discontinued, Routine 2053 (Given - Provider: Reva Rosa RN) 08 (Given - Provider: Dionna Kearney) senna-docusate (Pericolace) 8.6-50 mg per tablet 2 tablet 2 tablet, Oral, 2 TIMES DAILY, First dose on Mon12/11/19 at 2100, Until Discontinued, Routine 2053 (Given - Provider: Reva Rosa RN) 0900 (Not Given - Provider: Dionna Kearney - Reason: Patient/family refused) sodium chloride 0.9 % (flush) flush 5 mL 5 mL, Intravenous, 2 TIMES DAILY, First dose on Mon12/11/19 at 2100, Until Discontinued, Recovery (Recovery-Hospital Unit), Routine 2054 (Given - Provider: Reva Rosa RN) 0802 (Given - Provider: Dionna Kearney) tamsulosin (Flomax) capsule 0.4 mg 0.4 mg, Oral, DAILY, First dose on Mon12/12/19 at 1215, Until Discontinued, DO NOT CRUSH OR OPEN, Routine 1145 (Given - Provid er: Dionna Kearney) Continuous Medication Order 12/10/2019 12/11/2019 12/12/2019 lactated ringers infusion (CANCELED) 1,000 mL, at 100 mL/hr, Intravenous, CONTINUOUS, Starting on Mon12/11/19 at 1100, Until Mon12/11/19 at 1835, Day of Surgery (Day of Procedure) 1124 (New Bag - Provider: Antoinette Bowling RN)1349 (New Bag - Provider: Patel Rowan CRNA)1550 (New Bag - Provider: Patel Rowan CRNA)1643 (Stopped - Provider: Patel Rowan CRNA) sodium chloride 0.9% infusion 1,000 mL, at 100 mL/hr, Intravenous, CONTINUOUS, Starting on Mon12/11/19 at 1730, Until Yara 12/12/19 at 1648, Recovery (Recovery-Hospital Unit) 1742 (New Bag - Provider: Brittani Cardenas RN) PRN Medication Order 12/10/2019 12/11/2019 12/12/2019 bisacodyL (Dulcolax) suppository 10 mg 10 mg, Rectal, DAILY PRN, Starting on Mon12/11/19 at 1930, Until Yara 12/12/19 at 1648, Constipation, Administer if needed per patient's routine or if no bowel movement within 48 hours to achieve: (1) One bowel movement every 48 hours, AND (2) without straining. If multiple PRN bowel medications ordered, start with lactulose, then oral bisacodyl, then bisacodyl suppository. Multiple medications may be given concomitantly for constipation., Routine bisacodyl EC (Dulcolax) tablet 10 mg 10 mg, Oral, 2 TIMES DAILY PRN, Starting on Mon12/11/19 at 1930, Until Yara 12/12/19 at 1648, Constipation, DO NOT CRUSH OR OPEN Administer if needed per patient's routine or if no bowel movement within 48 hours to achieve: (1) One bowel movement every 48 hours, AND (2) without straining. If multiple PRN bowel medications ordered, start with lactulose, then oral bisacodyl, then bisacodyl suppository. Multiple medications may be given concomitantly for constipation., Routine BUpivacaine-EPINEPHrine 0.25 %-1:200,000 injection (CANCELED) ONCE PRN, Starting on Mon12/11/19 at 1544, Until Yara 12/12/19 at 1648, Intra-Operative (Intra-Procedure), Routine 1544 (Given - Provider: Marlon Zhu) fentaNYL (PF) 50 mcg/mL injection (CANCELED) 50 mcg, Intravenous, EVERY 5 MIN PRN, Starting on Mon12/11/19 at 1039, Until Mon12/11/19 at 1835, Pain, or prior to injection of local anesthetic., Hold for respiratory rate less than 8 breaths per minute. (maximum dose 200 mcg), Day of Surgery (Day of Procedure), Routine 1350 (Given - Provider: Adis Rowan CRNA) ketorolac (TORADOL) injection 15 mg 15 mg, Intravenous, EVERY 6 HOURS PRN, Starting on Mon12/11/19 at 1712, Until Yara 12/12/19 at 1648, Pain, Routine lidocaine (XYLOCAINE) 10 mg/mL (1 %) injection 3 mg 3 mg (0.3 mL), Subcutaneous, ONCE PRN, 1 dose, Starting on Mon12/11/19 at 1930, Until Yara 12/12/19 at 1648, for discomfort with PIV insertion, Recovery (Recovery-Hospital Unit), Routine ondansetron (ZOFRAN) injection 4 mg(Linked Group 2) 4 mg, Intravenous, EVERY 8 HOURS PRN, Starting on Mon12/11/19 at 1930, Until Yara 12/12/19 at 1648, Nausea, May repeat times one in 30 minutes if ineffective. If multiple antiemetics are ordered, use ondansetron first, Recovery (Recovery-Hospital Unit) ondansetron (Zofran) tablet 4 mg(Linked Group 2) 4 mg, Oral, EVERY 8 HOURS PRN, Starting on Mon12/11/19 at 1930, Until Yara 12/12/19 at 1648, Nausea, Vomiting, If multiple antiemetics are ordered, use ondansetron first. PO Preferred. If patient unable to take PO, may give IV if ordered. May repeat times one in 45 minutes if ineffective., Recovery (Recovery-Hospital Unit), Routine oxyCODONE (Roxicodone) tablet 5-15 mg 5-15 mg, Oral, EVERY 4 HOURS PRN, Starting on Mon12/11/19 at 1712, Until Yara 12/12/19 at 1648, Pain, Give 5 mg for mild pain (1-3), 10 mg for moderate pain (4-6) or 15 mg for severe pain (7-10) May give an additional 5 mg in 30 minutes ONCE if pain not relieved., Routine sodium chloride 0.9 % (flush) flush 5-20 mL 5-20 mL, Intravenous, EVERY 1 MIN PRN, Starting on Mon12/11/19 at 1930, Until Mon12/12/19 at 1648, flush, Flush pertains to all indwelling lines. Flush per protocol found in the job aid using the link provided on this medication record., Recovery (Recovery-Hospital Unit), Routine Linked Groups Order Group 1: gabapentin (Neurontin) capsule 600 mgJump to med 600 mg, Oral, NIGHTLY, 2 doses, First dose on Mon12/11/19 at 2100, Last dose on Mon12/12/19 at 2100, Routine Followed by gabapentin (Neurontin) capsule 300 mgJump to med 300 mg, Oral, NIGHTLY, First dose on Mon12/13/19 at 2100, Until Discontinued, Routine Group 2: ondansetron (Zofran) tablet 4 mgJump to med 4 mg, Oral, EVERY 8 HOURS PRN, Starting on Mon12/11/19 at 1930, Until Yara 12/12/19 at 1648, Nausea, Vomiting, If multiple antiemetics are ordered, use ondansetron first. PO Preferred. If patient unable to take PO, may give IV if ordered. May repeat times one in 45 minutes if ineffective., Recovery (Recovery-Hospital Unit), Routine Or ondansetron (ZOFRAN) injection 4 mgJump to med 4 mg, Intravenous, EVERY 8 HOURS PRN, Starting on Mon12/11/19 at 1930, Until Yara 12/12/19 at 1648, Nausea, May repeat times one in 30 minutes if ineffective. If multiple antiemetics are ordered, use ondansetron first, Recovery (Recovery-Hospital Unit) documented in this encounter Care Teams Hot Roll Inspector Relationship Specialty Start Date End Date Phoenix Guzmán DO [address] [place] [address] [place] [phone] PCP - General General Internal Medicine 02/20/15 documented as of this encounter
--- OUTSIDE RECORDS SUMMARY | 2023-10-23 09:04 | XMS_ITS | Encounter Summary ---
[place] [address] Care Team Providers Care Coutierier Name Role Phone DevantePhoenix orozco Susan MCDOWELL Primary Care Provider [phone] Reason for Referral * Diagnostic Test (Routine) - Closed Specialty Diagnoses / Procedures Referred By Omid shepherd Referred To Contact Radiology Diagnoses Status post total left knee replacement Procedures MRI Knee wo Contrast Left (Generic) Ramy Bolton MD [facility] [place] [address] [place] [address] Referral ID Status Reason Start Date Expiration Date V isits Requested Visits Authorized [id number] Closed Specialty Service Requested 02/20/2020 08/19/2021 1 1 Encounter Details Date Type Department Care Team (Late st Contact Info) Description 02/20/2020 9:40 AM EST Office [place] [address] Walter Rae MD [facility] [place] [address] s/p left TKA revison tibial component for [...] Sign Reading Time Taken Comments Blood Pressure 140/81 02/20/2020 9:25 AM EST Pulse 83 02/20/2020 9:25 AM EST Temperature - - Respiratory Rate - - Oxygen Saturation - - Inhaled Oxygen Concentration - - Weight 131.5 kg (289 lb 14.5 oz) 02/20/2020 9:25 AM EST Height 182.9 cm (6' 0.01) 02/20/2020 9:25 AM ES T Body Mass Index 39.31 02/20/2020 9:25 AM EST documented in this encounter Progress Notes * Walter Rae MD - 02/20/2020 9:40 AM EST I have seen the patient and reviewed Ramy Bolton MD's history/physical and I agree with the details as written. The assessment and plan were formulated in discussion with me and I agree with them as documented. 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 He presents today in follow-up with continued medial sided pain and significant swelling. He does note that stairs are difficult. He is able to straight leg raisefully with about 5 out of 5 strength. He has what appears to be a deficit in the medial retinaculum. He has tilt of his patella on the sunrise view. He has not had a malena patella dislocation. I discussed the role of an [place] MRI to assess for medial retinaculum disruption. I discussed this problem on a diagram. I discussed the potential for medial retinaculum repair if found. We will have a further discussion after the MRIs been performed. Walter Rae MD, MS 02/20/2020 * Ramy Bolton MD - 02/20/2020 9:40 AM EST Arthroplasty/Orthopaedic History: 1. s/p L TKA 09/07/2015 (Dr. Rae) 2. s/p R TKA on 09/21/16 Butch 3. s/p revision R ELZBIETA with head-liner exchange 06/29/16 (Dr. Rae) with dislocation (12/2016) 4. S/p revision RTHA with reclaim and dual mobility 12/01/17 Dr. Hanna 5. S/p L TKA revision 12/11/19 (Dr. Bliss) for aseptic loosening HPI: Gunnar Morin is a very pleasant 74 y.o. year-old male returns to clinic today for ongoing evaluation of left knee pain. Most recently status post left total knee revision for aseptic loosening in December of this year with Dr. Bliss. While working with physical therapy in the postoperative period he felt a pop in his knee. He subsequently developed increased swelling and increased medial sided pain. Now he finds that his knee is painful with extension especially medially. He has a large effusion. By his account the pain is stable and the effusion is minimal if any improved. Pain is been controlled with as needed NSAIDs. No narcotics. He has been able to continue to do stairs. Hehas 13 steps in his home is able to complete approximately 5 rounds daily although this does cause him significant discomfort. Again this is primarily medially and worse with extension. He likes to patel but has been unable to do so on of fear of his knee pain. He does walk approximately half mile daily. This is primarily on flat ground. ROS: Denies: fever, chills, night sweats, nausea, or vomiting BP 140/81 Pulse 83 Ht 182.9 cm (6' 0.01) Wt 131.5 kg (289 lb 14.5 oz) BMI 39.31 kg/m?? Physical Exam: Well-appearing male. Pleasant and cooperative examined exam. No acute distress. Heart rate regular by peripheral palpation Breathing easy nonlabored Range of motion of the left knee preserved from flexion is 0 to 120 degrees. He is able to activelyreach full extension. He has minimal weakness with extension. No extensor lag. Terminal extension is painful. Passively he has no pain with extension. He is stable to varus and valgus stress and anterior and posterior drawer testing. He does have a large effusion. There is perhaps a palpable defectmedially in the retinaculum but I am unable to say so definitively based on physical exam alone. Distally he is neurovascular intact. Questionnaire Responses: [facility] Surgical Postop Visit 02/14/2020 PROMIS-10 General Health Very Good PROMIS-10 Quality of Life Very Good PROMIS-10 Physical Health Very Good PROMIS-10 Mental Health Very Good PROMIS-10 Social Activity Very Good PROMIS-10 Everyday Activities Mostly PROMIS-10 Pain 4 PROMIS-10 Fatigue None PROMIS-10 Social Roles Very Good PROMIS-10 Anxious or Depressed Never PROMIS PHYSICAL HEALTH SCORE 50.8 PROMIS MENTAL HEALTH SCORE 56 HOOS JR Scores 100 KOOS JR Scores - Problems with surgical [...] Pain in other KNEE - ELZBIETA Grade 9 Pain in other HIP None Back pain at this moment - Satisfaction with Treatment Satisfied Choose Same Treatment Again Probably yes [facility] Response 02/14/2020 HOOS JR Scores 100 KOOS JR Scores - Spine [facility] Response 02/14/2020 HOOS JR Scores 100 KOOS JR Scores - ASSESSMENT/PLAN: Mr. Morin is a 74 y.o. year old male status post left knee revision arthroplasty for aseptic loosening of the tibial component. His postoperative course has been unfortunately complicated by persistent effusion and medial sided knee pain. On prior imaging his patella sits slightlylaterally. He denies any malena dislocations. His extensor mechanism remains intact. I suspect he may have disruption of the medial retinaculum. We discussed obtaining an MRI to further evaluate. Order was placed for this today. We will plan to contact him via phone once the MRI has been performed and read. He is in agreement with the plan. All questions were answered. Signed: Ramy Bolton MD 02/20/2020 documented in this encounter Plan of Treatment Upcoming Encounters Date Type Department Care Team (Late st Contact Info) Description 10/31/2023 9:15 AM EDT Office Visit Dermatology at [facility] [address] [place] [phone] Dawson Broderick MD [facility] [place] [address] 07/23/2024 9:30 AM EDT Office Visit Dermatology at [facility] [address] [place] [phone] Dawson Broderick MD [facility] [place] [address] documented as of this encounter Results * MRI Knee wo [...] ? Electronically signed by: Alannah Hernandez MD, [facility] ([phone]), at 03/16/2020 9:27 AM Narrative 03/16/2020 9:27 [...] below. Electronically signed by: Alannah Hernandez MD, [facility]([phone]), at 03/16/2020 9:27 AM Walter Rae MD IMG MRI ORDERABLES documented in this encounter Visit Diagnoses Diagnosis 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 12/11/19 (Jevsevar) 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 12/11/19 (Jevsevar) documented in this encounter Care Teams Coutierier Relationship Specialty Start Date End Date Phoenix Guzmán DO [address] [place] [address] [place] [phone] PCP - General General Internal Medicine 02/20/15 documented as of this encounter
--- OUTSIDE RECORDS SUMMARY | 2023-10-23 09:04 | XMS_ITS | Encounter Summary ---
[place] [address] Care Team Providers Care Buildings And Grounds Supervisor Name Role Phone Phoenix Guzmán Primary Care Provider [phone] Reason for Visit * Reason Onset Date Comments Pre Procedure Call 09/26/2019 Encounter Details Date Type Department Care Team (Late st Contact Info) Description 09/26/2019 Telephone [place] [address] Walter Rae MD [facility] [place] [address] Pre Procedure Call Social History Tobacco Use Types Packs/Day Years [...] encounter Miscellaneous Notes * Telephone Encounter - Elizabeth Michael - 09/26/2019 9:05 AM EDT I called and left a message for patient to call [phone] directly and schedule surgery with Dr. Rae. documented in this encounter Plan of Treatment Upcoming Encounters Date Type Department Care Team (Late st Contact Info) Description 10/31/2023 9:15 AM EDT Office Visit Dermatology at [facility] [address] [place] [phone] Dawson Broderick MD [facility] [address] [place] [address] 07/23/2024 9:30 AM EDT Office Visit Dermatology at [facility] [address] [place] [address] Dawson Broderick MD [facility] [place] [address] documented as of this encounter Visit Diagnoses Not on filedocumented in this encounter Care Teams Buildings And Grounds Supervisor Relationship Specialty Start Date End Date Phoenix Guzmán DO [address] [place] [address] [place] Laboy [phone] PCP - General General Internal Medicine 02/20/15 documented as of this encounter
--- OUTSIDE RECORDS SUMMARY | 2023-10-23 09:04 | XMS_ITS | Encounter Summary ---
Author Organization [facility] [address] Care Team Providers Care Pneudraulic Systems Mechanic Name Role Phone RamirezPhoenix Susan MCDOWELL Primary Care Provider [phone] Reason for Visit * Auth/Cert Specialty Diagnoses [...] Expiration Date Visits Re quested Visits Authorized [id number] 1 1 Encounter Details Date Type Department Care Team (Late st Contact Info) Description 12/11/2019 12:26 PM EDT - 12/11/2019 3:54 PM EDT Surgery [place] [id number] Rober Bliss MD [facility] [place] [address] @TOTAL KNEE REVISION ARTHROPLASTY, COMPLETE (WRVU 27.11) Social History Tobacco Use Types Packs/Day Years [...] Sign Reading Time Taken Comments Blood Pressure 146/96 12/11/2019 10:44 AM EDT Pulse 82 12/11/2019 10:44 AM EDT Temperature 37.2 ??C (99 ??F) 12/11/2019 10:44 AM EDT Respiratory Rate 18 12/11/2019 10:44 AM EDT Oxygen Saturation 96% 12/11/2019 10:44 AM EDT Inhaled Oxygen Concentration - - Weight 133.8 kg (295 lb) 12/11/2019 10:44 AM EDT Height - - Body Mass Index 40 12/12/2019 7:48 AM EDT documented in this encounter Discharge Summaries * Julia Soriano P, [facility] - 12/12/2019 10:41 AM EDT Discharge Summary Patient Name: Gunnar Morin Patient Age: 74 y.o. Language: Slovak Race: White Ethnicity: Not nor Admit date: 12/11/2019 Discharge date and time: 12/12/2019 Attending Physician: Rober Bliss MD Discharge Physician: Rober Bliss MD Follow-up Recommendations for Providers: See discharge instructions for additional details. Future Appointments Date Time Provider Department Center 01/23/2020 8:30 AM [facility] DX ROOM 1 MH Xray [facility] Rad 01/23/2020 9:30 AM Walter Rae MD [facility] ORTH 3C [facility] 01/23/2020 11:00 AM [facility] DX ROOM 3 MH Xray [facility] Rad Inpatient Provider Contact Information: Rober Bliss MD Orthopedics: [phone] After hours and weekends, call [facility] Pin Machine Operator, , and have the Orthopedic resident paged. [...] ATTUNE REVISION ROTATING PLATFORM RP KNEE SYSTEM SoFits.MeUY Findings: Grossly loose tibial component. Well-fixed femoral [...] number below. Electronically signed by: Rober Franz [facility] ([phone])ca 12/11/2019 6:35 PM Pending Studies and Lab [...] bowel movement. You can also take an akoi-yju-ewrdago medication, Miralax if needed to combat constipation. [...] as much as possible. Call your doctor ([phone]) if you develop: 1. Fever greater than 100.5 2. Severe nausea or vomiting 3. Increasing pain that is not controlled by pain medications 4. Increasing redness, swelling, or drainage from incisions 5. Change in sensation FOLLOW-UP APPOINTMENTS: 1. You will have follow-up appointments at [facility] as indicated below in Future Appointment and Orders. 2. You will need to have x-rays prior to your follow-up appointment on 01/23/2020. Please come to Radiology, desk , 1 hour BEFORE that appointment for those x-rays. Future Appointments Date Time Provider Department Center 01/23/2020 8:30 AM [facility] DX ROOM 1 MH Xray [facility] Rad 01/23/2020 9:30 AM Walter Rae MD [facility] ORTH [address] [place] [address] 01/23/2020 11:00 AM [facility] DX ROOM 3 MH Xray [facility] Rad If you have questions or [...] AM [facility] DX ROOM 1 XRay at [facility] Arrive at: Exhaust Emissions Inspector Area [phone] Please go to Exhaust Emissions Inspector Area ([place] Location). 01/23/2020 9:30 AM Walter Rae MD Orthopaedics at [facility] Arrive at: Exhaust Emissions Inspector Area [phone] 01/23/2020 11:00 AM [facility] DX ROOM 3 XRay at [facility] Arrive at: Exhaust Emissions Inspector Area [phone] Please go to Exhaust Emissions Inspector Area ([place] Location). Future Orders Complete By Expires Referral to Home Health - at DISCHARGE [XWQ0021 CPT(R)] As directed Process Instructions: Scheduling Instructions: Comments: DOCUMENTATION FOR VNA SERVICES (INCLUDING PATIENTS WITH MEDICARE COVERAGE BEING DISCHARGED HOME WITH VNA SERVICES AND/OR HOSPICE SERVICES) PATIENT'S LOCATION: Gunnar Morin Discharge to own home: [address] [place] [address] Transport Tech's Name: self/patient In discussion with the attending physician, it is certified that this patient is under their care and that they, or a nurse practitioner, clinical nurse specialist or physician's academic support assistant who is working directly with them, [...] for home health services. HOME HEALTH AGENCY: [facility] PHONE: [phone] FAX: [phone] Snf(SN) eval if indicated on admission visit Activity: [...] be obtained from this patient's PCP: Phoenix Guzmán, [address] [place] [address] [place] [address] All VNA agencies which cover patient's residence area have been reviewed, either verbally or in writing, and patient/family have chosen the indicated home health agency. Questions: Agency name and contact information: Nguyen [facility] Patient location post discharge: home What services are requested: Physical Therapy Start date: Responsible MD post discharge contact info: Primary Care Provider: Phoenix Shepherd DevanteernestoDO [phone] Discharge References/Attachments None documented in this encounter Discharge Instructions * Patient Instructions* Julia Soriano, [facility] - 12/12/2019 10:34 AM EDT Activity: 1. [...] bowel movement. You can also take an slqz-zfr-efiwftc medication, Miralax if needed to combat constipation. [...] as much as possible. Call your doctor ([phone]) if you develop: 1. Fever greater than 100.5 2. Severe nausea or vomiting 3. Increasing pain that is not controlled by pain medications 4. Increasing redness, swelling, or drainage from incisions 5. Change in sensation FOLLOW-UP APPOINTMENTS: 1. You will have follow-up appointments at [facility] as indicated below in Future Appointment and Orders. 2. You will need to have x-rays prior to your follow-up appointment on 01/23/2020. Please come to Radiology, desk 3T, 1 hour BEFORE that appointment for those x-rays. Future Appointments Date Time Provider Department Center 01/23/2020 8:30 AM [facility] DX ROOM 1 Xray [facility] Rad 01/23/2020 9:30 AM Walter Rae MD [facility] 3C [facility] 01/23/2020 11:00 AM [facility] DX ROOM 3 Xray [facility] Rad If you have questions or [...] summary and flowsheets for additional details. * MarkoSeth egan Ca - 12/12/2019 6:39 AM EDT ORTHOPAEDIC SURGERY [...] Time Provider Department Center 01/23/2020 8:30 AM [facility] DX ROOM 1 MH Xray [facility] Rad 01/23/2020 9:30 AM Walter Rae MD [facility] 3C [facility] 01/23/2020 11:00 AM [facility] DX ROOM 3 MH Xray [facility] Rad * Salima March MD - [...] revison tibial component for aseptic loosening 12/11/19 (Zebvar) Resolved Hospital Problems No resolved problems to [...] Intake/Output Summary (Last 24 hours) at 12/11/2019 1921 Last data filed at 12/11/2019 1643 Gross [...] Time Provider Department Center 01/23/2020 8:30 AM [facility] DX ROOM 1 MH Xray [facility] Rad 01/23/2020 9:30 AM Walter Rae MD [facility] 3C [facility] 01/23/2020 11:00 AM [facility] DX ROOM 3 Xray [facility] Rad * Dionna Kearney - 12/11/2019 6:22 PM EDT Report received from MARKET SPECIALISTMICHAELA Casas. XR completed. 1840 Pt arrived on [...] care provider on file: Phoenix Guzmán DO [phone] Advance Directive on file and Code Status: Received, Attempt Cardiopulmonary Resuscitation - Inpatient Functional Status prior to admission: independent ,drives Functional Status current: assist of staff Living Situation:house, 2 level, bedroom on second floor, [address] [place] [address] Supports: spouse Sussy, available to provide support at home DME:[employer]. Home Health: [facility] for PT pended/routed This author reviewed a list of Home Health Agencies/DME vendors which serve their preferred geographic area. Affiliations were reviewed with them and they were educated about their right to choose where referrals are placed. Patient requests referral to [facility] PHONE: [phone] FAX: [phone] Expected date of discharge: today Assessment: Patient with no apparent or limited RNCM/SW needs at this time. No housing, transportation, insurance, resources concerns identified at this time. Supports in place to achieve a safe post-hospital transition. No identified barriers to accessing necessary care and/or follow-up after discharge. Plan: Patient to d/c to home via private car when medically ready. associate field service engineer/Maintenance Worker House Trailer will continue to follow patient???s progress and remain available if situation changes for coordination of care, psychosocial support and/or discharge planning. Magaly العراقي, RN Pager [phone] * Plan of Care - Jonathon Denise, [...] 3.79) performed by Carina Patton MD at [facility] ??? PRO INTRAOP SENTINEL LYMPH ID W/DYE INJECTION Midline 01/19/2017 INTRAOPERATIVE ID (MAPPING) SENTINEL LYMPH NODE,INCLUDES INJECTION (WRVU 2.5) performed by Carina Patton MD at [facility] ??? PRO REVISE KNEE JOINT REPLACE, ALL PARTS Left 12/11/2019 @TOTAL KNEE REVISION ARTHROPLASTY, COMPLETE (WRVU 27.11) performed by Rober Bliss MD at [facility] OR ??? PRO REVISE TOTAL HIP REPLACEMENT Right 06/29/2016 @TOTAL HIP REVISION ARTHROPLASTY, COMPLETE (WRVU 30.28) performed by Walter Rae MD at [facility] OR ??? PRO REVISE TOTAL HIP REPLACEMENT Right 12/01/2017 @TOTAL HIP REVISION ARTHROPLASTY, COMPLETE (WRVU 30.28) performed by Italo Hanna MD at [facility] OR ??? PRO TOTAL KNEE ARTHROPLASTY Left 09/07/2015 @TOTAL KNEE ARTHROPLASTY performed by Walter Rae MD at [facility] OR ??? PRO TOTAL KNEE ARTHROPLASTY Right 09/21/2016 @TOTAL KNEE ARTHROPLASTY (WRVU 20.72) performed by Walter Rae MD at [facility] OR ??? XR JOINT ASPIRATION - LARGE JOINT LEFT Left 09/12/2019 XR Fluoro Guided Joint Aspiration Large Left 09/12/2019 Saul Alan MD [facility] RAD XRAY Active Non-Hospital Problems Diagnosis [...] Social History: Home set-up: He lives in [place] with his . They are both retired [...] in this evaluation. Time IN / OUT: [id number] (derek, TE) Jonathon Denise PT Pager: [phone] Physical Therapy Inpatient Rehabilitation Department * Plan of Care - Reva Rosa RN - 12/12/2019 7:06 AM EDT Problem: Patient Care Overview Goal: Plan of Care Review Outcome: Ongoing (Interventions Implemented as Appropriate) 12/11/19 1843 12/11/192104 Coping/Psychosocial Plan Of Care Reviewed With -- [...] Seth Zhu - 12/11/2019 5:11 PM EDT [facility] Operative Note Patient Name: Gunnar Morin : [id number] MR#: [id number] Case Date: 12/11/2019 Surgeon: Surgeon(s) and Role: [...] planned surgery, and site according to the [facility] [place] Protocol. A thigh-high tourniquet was placed. The [...] from the canal was then removed with Floridalma curette. Next the tibial sleeve broach was [...] Implant Name Type Inv. Item Serial No. Microsoft Office Instructor Lot No. LRB No. Used Action CEMEN,GENTA,VISC,MED ([id number]) (AUTOREQ) - [id number] IMPLANTS CEMEN,GENTA,VISC,MED ([id number]) (AutoReq) Brozengo TALHA OSKAR [id number] Left 1 Implanted STEM,ATUN,PFIT,STR,[id number] ([id number]) (AUTOREQ) - [id number] IMPLANTS STEM,ATUN,PFIT,STR,[id number] ([id number]) (AutoReq) Brozengo [facility] [id number] Left 1 Implanted BASE,ATUN,REV,TIB,NACHO,SZ7 ([id number]) (AUTOREQ) - [id number] IMPLANTS BASE,ATUN,REV,TIB,NACHO,SZ7 ([id number]) (AutoReq) Prezi OSKAR [id number] Left 1 Implanted SLEEV,ATUN,FULL-POR,M-L,45MM ([id number]) (AUTOREQ) - [id number] IMPLANTS SLEEV,ATUN,FULL-POR,M-L,45MM([id number]) (AutoReq) Prezi OSKAR [id number] Left 1 Implanted INSER,ATTUNE,CR,RP,SZ9,14MM ([id number]) (AUTOREQ) - [id number] IMPLANTS INSER,ATTUNE,CR,RP,SZ9,14MM ([id number]) (AutoReq) Prezi OSKAR [id number] Left 1 Implanted Associated attestation - Rober [...] AM EDT Office Visit Dermatology at [facility] [address] [place] [address] Dawson Broderick MD [facility] [address] [place] [address] 07/23/2024 9:30 AM EDT Office Visit Dermatology at [facility] [address] [place] [address] Dawson Broderick MD [facility] [place] [address] documented as of this encounter Procedures Procedure [...] replacement Revise Knee Joint Replace, All Parts ([id number]) 12/11/2019 1:42 PM EDT Status post total left knee replacement RAPID COVID-19 PCR ([facility]) STAT 12/11/2019 12:19 PM EDT EKG 12-LEAD STAT 12/11/2019 10:54 AM EDT Coronary artery disease, angina presence unspecified, unspecified vessel or lesion type, unspecified whether chilkat or transplanted heart IMPLANTABLE DEVICES SCAN 12/11/2019 12:00 AM EDT documented in this encounter Results * (ABNORMAL) Differential, Automated (12/12/2019 7:35 AM EDT) Neutrophils % 85.5 % [facility] Neutr Abs (ANC) 10.57(H) 1.70 - 6.10 x10(3)/mc L [facility] Lymphocytes % 5.5 % [facility] Lymphocytes Abs 0.7(L) 0.9 - 3.2 x10(3)/mc L [facility] Monocytes % 8.3 % [facility] Monocyte Abs 1.0(H) 0.3 - 0.9 x10(3)/mc L [facility] Eosinophils % 0.0 % [facility] Eosinophils Abs 0.0 0.0 - 0.4 x10(3)/[facility] Basophils % 0.1 % [facility] Basophils Abs 0.0 0.0 - 0.1 x10(3)/[facility] Immature Gran % 0.60 % [facility] Comment: Immature granulocytes(IG's)percentage and absolute count will include metamyelocytes, myelocytes, and promyelocytes. Blood smears from CBCs yielding IG's will be scanned manually for concordance. If this scan disagrees with the automated IG or if promyelocytes are noted, a manual differential will be performed. Geovanna Gran Abs 0.08(H) 0.00 - 0.04 x10(3)/[facility] Blood specimen (specimen) 12/12/2019 7:35 AM EDT 12/12/2019 7:43 AM EDT Narrative Resulting Agency Comment Spec In Lab Salima March MD HEMATOLOGY ORDERABLE S Performing Organization Address City/State/[facility] Co de Phone Number [facility] [place] [address] * (ABNORMAL) Hemogram (12/12/2019 7:35 AM EDT) WBC 12.4(H) 4.0 - 9.5 x10(3)/[facility] RBC 4.24(L) 4.58 - 5.54 x10(6)/[facility] Hemoglobin 13.9 13.7 - 16.5 gm/dL [facility] Hematocrit 41.2 40.5 - 48.5 % [facility] MCV 97.2(H) 82.9 - 93.1 fL [facility] MCH 32.8(H) 27.5 - 32.1 pg [facility] MCHC 33.7 32.0 - 35.7 gm/dL [facility] Platelets 224 145 - 357 x10(3)/[facility] RDWSD 46.9(H) 36.0 - 45.0 [facility] RDWCV 13.2 11.4 - 13.8 % [facility] MPV 10.1 7.6 - 12.9 [facility] nRBC % Auto 0.0 % [facility] nRBC Abs Auto 0.000 0.000 - 0.000 x10(3)/[facility] Blood specimen (specimen) 12/12/2019 7:35 AM EDT 12/12/2019 7:43 AM EDT Narrative Resulting Agency Comment Spec In Lab Salima March MD HEMATOLOGY ORDERABLE S [facility] [place] [address] * (ABNORMAL) Basic Metabolic Panel (non-fasting) (12/12/2019 7:35 AM EDT) Glucose Lvl 149 65 - 199 mg/dL [facility] Comment:Diabetes: >=200 mg/d L plus symptoms BUN 15 10 - 20 mg/dL [facility] Creatinine 1.00 0.80 - 1.50 mg/dL [facility] Sodium 136 135 - 145 mmol/L [facility] Potassium 4.8 3.5 - 5.0 mmol/L [facility] Comment: Please note: ??Patients with WBC >100,000 may have falsely elevated Potassium levels. ??For accurate Potassium quantification in these patients send serum separator tube (gold top) for subsequent determinations. ??Contact the Clinical Chemistry Laboratory if there are any questions. Chloride 100 98 - 107 mmol/L [facility] CO2 25 22 - 31 mmol/L [facility] Anion Gap 11 5 - 15 mmol/L [facility] Calcium 8.3(L) 8.5 - 10.5 mg/dL [facility] Estimated GFR 75 >=60 mL/min/1. 73 m?? [facility] Comment: The eGFR was calculated using the CKD-EPI equation. As with all creatinine based estimates of kidney function, eGFR values calculated with the CKD-EPI equation are not accurate in patients with acute kidney failure, extremes of body mass or the acutely ill. [email or web address]://[email or web address] eGFR 87 >=60 mL/min/1. 73 m?? [facility] Comment: The eGFR was calculated using the CKD-EPI equation. As with all creatinine based estimates of kidney function, eGFR values calculated with the CKD-EPI equation are not accurate in patients with acute kidney failure, extremes of body mass or the acutely ill. [email or web address] Blood specimen (specimen) 12/12/2019 7:35 AM EDT 12/12/2019 7:43 AM EDT Narrative Resulting Agency Comment Spec In Lab Rober Bliss MD CHEMISTRY ORDERABLES [facility] [place] [id number] * XR Tibia Fibula Left (Generic) (12/11/2019 [...] this report, please contact the number below. Rober Bliss MD IM DX ORDERABLES * COVID-19 PCR (12/11/2019 12:19 PM EDT) SARS-CoV-2 RNA PCR Not Detected Not Detected [facility] Comment: This result should be interpreted [...] using the Simplexa COVID-19 Direct Assay by [employer] as authorized by the FDA issued Emergency [...] Department of Pathology and Laboratory Medicine at [facility], certified under the Clinical Laboratory Improvement [...] Information for Healthcare Professionals (https://www.cdc.gov/coronavirus/2019-ncov/hcp/index.html). SARS-CoV-2 Source BREWING DIRECTOR Swab [facility]ISS [facility] Nasopharyngeal swab (specimen) 12/11/2019 12:19 PM EDT 12/11/2019 2:24 PM EDT Comment:Symptoms->Surveillan ce Narrative Resulting Agency Comment Spec In Lab Lg Salazar MD MICROBIOLOGY - GENER AL ORDERABLES [facility] [place] [address] * EKG 12 Lead (12/11/2019 10:54 AM EDT) Ventricular rate 73 BPM MUSE SYSTEM Atrial Rate 73 BPM MUSE SYSTEM P-R Interval 192 ms MUSE SYSTEM QRS Duration 102 ms MUSE SYSTEM Q-T Interval 358 ms MUSE SYSTEM QTC Calculated (Bezet) 394 ms MUSE SYSTEM Calculated P Republic 32 degrees MUSE SYSTEM Calculated R Republic 21 degrees MUSE SYSTEM Calculated T [place] 0 degrees MUSE SYSTEM INTERPRETATION Normal sinus rhythm Cannot rule out Anterior infarct , age undetermined ??vs lead placement Abnormal ECG When compared with ECG of 09-NOV-2017 13:01, No significant change was found Confirmed by Diamond Galvez ([id number]) on 12/11/2019 12:23:10 PM MUSE SYSTEM 12/11/2019 10:5 4 AM EDT 12/11/2019 12:23 PM EDT Lg Salazar MD ECG ORDERABLES MUSE SYSTEM * SCAN DOC: IMPLANTABLE DEVICES (12/11/2019 12:00 AM EDT) Narrative 12/11/2019 12:00 AM EDT Ordered by an unspecified provider. Scanning Provider MEDIA MGR SCAN EXT O RDR/RSLT documented in this encounter Visit Diagnoses Diagnosis Coronary artery disease, angina presence unspecified, unspecified vessel or lesion type, unspecified whether chilkat or transplanted heart 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 12/11/19 (Jevsevar) Status post total left knee replacement Status post total left knee replacement documented [...] Given 12/11/2019 8:54 PM EDT 81 mg BUpivacaine-EPINEPHrine 0.25 %-1:200,000 injection ONCE PRN, Starting on Mon12/11/19 at 1544, Until Mon12/12/19 at 1648, Intra-Operative (Intra-Procedure), Routine Given 12/11/2019 3:44 PM EDT 50 mLs 19- Surgical Site carvediloL (Coreg) tablet 12.5 mg 12.5 mg, Oral, 2 TIMES DAILY WITH MEALS, First dose on Mon12/12/19 at 0800, Until Discontinued, Hold for SBP <120, Routine Given 12/12/2019 8:03 AM EDT 12.5 mg celecoxib (CeleBREX) capsule 200 mg 200 mg, Oral, 2 TIMES DAILY, First dose on Mon12/11/19 at 2100, Until Discontinued, Routine Given 12/12/2019 8:02 AM EDT 200 mg Given 12/11/2019 8:54 PM EDT 200 mg gabapentin (Neurontin) capsule 300 mg 300 mg, Oral, NIGHTLY, First dose on Mon12/13/19 at 2100, Until Discontinued, Routine gabapentin (Neurontin) capsule 600 mg 600 mg, Oral, NIGHTLY, 2 doses, First dose on Mon12/11/19 at 2100, Last dose on Mon12/12/19 at 2100, Routine Given 12/11/2019 8:54 PM EDT 600 mg ondansetron (ZOFRAN) injection 4 mg 4 mg, [...] Yara 12/12/19 at 1648, Recovery (Recovery-Hospital Unit) Rai Bingham 12/11/2019 5:42 PM EDT 1,000 mLs 100 [...] 112 (Given - Provider: Antoinette Bowling RN) acetaminophen [...] Reason: Patient/family refused - Comment: denies pain) 299 (Not Given - Provider: Reva Rosa RN - Reason: Patient/family refused)801 (Given - Provider: Dionna Kearney) aspirin EC tablet 81 mg 81 mg, Oral, 2 TIMES DAILY, First dose on Mon12/11/19 at 2100, Until Discontinued, Routine 2053 (Given - Provider: Reva Rosa RN) 802 (Given - Provider: Dionna Kearney) carvediloL (Coreg) [...] 2053 (Given - Provider: Reva Rosa RN) 0802 (Given - Provider: Dionna Kearney) celecoxib (CeleBREX) capsule 400 mg (COMPLETED) 400 mg, Oral, ONCE, 1 dose, On Mon12/11/19 at 1100, Administer on arrival to Same Day Program, Day of Surgery (Day of Procedure), Routine 1122 (Given - Provider: Antoinette Bowling RN) clindamycin (CLEOCIN) 600mg in dextrose 5% 50mL (COMPLETED) 600 mg, Intravenous, EVERY 8 HOURS, 1 dose, First dose on Mon12/11/19 at 1100, Administer over 20 Minutes, Day of Surgery (Day of Procedure), Indication for (Active or Suspected): Prophylaxis 1401 (Given - Provider: Patel Rowan CRNA) clindamycin [...] 2110 (New Bag - Provider: Reva Rosa RN)2131 (Stopped - Provider: Reva Rosa RN) 0647 (New Bag - Provider: Reva Rosa RN)0707 (Stopped - Provider: Dionna Kearney)1303 (New Bag - Provider: Dionna Kearney)1323 (Stopped - Provider: Dionna Kearney) dexamethasone (Decadron) tablet 4 mg (COMPLETED) 4 mg, Oral, DAILY, 2 doses, First dose on Mon12/11/19 at 2030, Last dose on Mon12/12/19 at 0900, Routine 205 (Given - Provider: Reva Rosa RN) 0805 (Given - Provider: Dionna Kearney) gabapentin (Neurontin) capsule 300 mg (COMPLETED) 300 mg, Oral, ONCE, 1 dose, On Mon12/11/19 at 1100, Administer on arrival in Same Day Program, Day of Surgery (Day of Procedure), Routine 1122 (Given - Provider: Antoinette Bowling RN) gabapentin [...] 2054 (Given - Provider: Reva Rosa RN) 08 (Given - Provider: Dionna Kearney) tamsulosin (Flomax) [...] at 1930, Until Yara 12/12/19 at 1648, flush, Flush pertains to all [...] Unit) documented in this encounter Care Teams Pneudraulic Systems Mechanic Relationship Specialty Start Date End Date Phoenix Guzmán DO [address] [place] [address] Dr [place], [place] [phone] PCP - General General Internal Medicine 02/20/15 documented as of this encounter
--- OUTSIDE RECORDS SUMMARY | 2023-10-23 09:04 | XMS_ITS | Encounter Summary ---
[place] [address] Care Team Providers Care Equipment Lead Name Role Phone [place] Guzmán Primary Care Provider [phone] Reason for Visit * Reason Comments Aftercare Of Tjr L TKR 12 11 19 Encounter Details Date Type Department Care Team (Late st Contact Info) Description 01/23/2020 9:30 AM EDT Office [place] [address] Walter Rae MD [facility] [place] [address] s/p left TKA revison tibial component for [...] Sign Reading Time Taken Comments Blood Pressure 130/75 01/23/2020 9:39 AM EDT Pulse 82 01/23/2020 9:39 AM EDT Temperature - - Respiratory Rate - - Oxygen Saturation - - Inhaled Oxygen Concentration - - Weight 131.5 kg (290 lb) 01/23/2020 9:39 AM EDT pt reported Height 182.9 cm (6') 01/23/2020 9:39 AM EDT pt r eported Body Mass Index 39.33 01/23/2020 9:39 AM EDT documented in this encounter Progress Notes * Walter Rae MD - 01/23/2020 9:30 AM EDT Date of surgery: 12/11/2019 Surgery: 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 Interval history: Patient returns today for follow-up regarding his postop visit for his left knee.He is also status post right total hip revision with Dr. Hanna that is doing well. His left knee postoperatively he is 6 weeks out. He has significant swelling. He has significant pain with active extension. He has no pain with passive range of motion of the knee. He is ranging from full extension to about 120 degrees. He notes that about a week postop when going up the stairs he felt a pop and some pain. This is subsequently improved. He is continue to work on active extension which is improving he is able to fully active extend. He notes the swelling has been persistent. Has had no fevers or chills or significant pain at rest. Exam: Sitting no apparent distress Examination of the left knee shows a well-healed midline incision. There is a Vicryl suture at the proximal end of the wound. There is a large swelling throughout the knee. His patella appears to track centrally. He is able to actively extend without lag. This is 4+ out of 5. He comes to full extension flexes 120 degrees. The knee is stable to varus valgus stress at 0 and 30 degrees of flexion. His distal neurovascular is grossly intact. Multiple views of the left knee reviewed show evidence of a revision total knee arthroplasty with stems and sleeves in the tibial component without signs of fracture, loosening or subsidence. There is some increased patella tilt but patella is still within the trochlea. This is slightly different than his preoperative x-ray. Assessment/plan: 74-year-old male who is 6-week status post isolated tibial revision of his left knee for aseptic loosening with pain with active extension and mild increased patella tilt with significant swelling. I discussed with him that he may have disrupted a small portion of his arthrotomy. At this point though he is able to actively extend and he is pain is improving. I decided at this point not to pursue any advanced imaging. I will see him back in 4 weeks. He notes that if he develops increasing pain or difficulty with active extension then he should see me more urgently. I discussedthat if he feels like his kneecap is shifted position in a lateral based fashion that he should contact me. Continue to work diligently on physical therapy. documented in this encounter Plan of Treatment Upcoming Encounters Date Type Department Care Team (Late st Contact Info) Description 10/31/2023 9:15 AM EDT Office Visit Dermatology [facility] [address] [place] [address] Dawson Broderick MD [facility] [address] 07/23/2024 9:30 AM EDT Office Visit [facility] [address] [place] [address] Dawson Broderick MD [facility] [address] documented as of this encounter Visit Diagnoses Diagnosis 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 12/11/19 (Jevsevar) documented in this encounter Care Teams Equipment Lead Relationship Specialty Start Date End Date [place] Guzmán DO [address] [place] [address] JOHN Laboy [phone] PCP - General General Internal Medicine 02/20/15 documented as of this encounter
--- OUTSIDE RECORDS SUMMARY | 2023-10-23 09:04 | XMS_ITS | Encounter Summary ---
Author Organization [facility] [place] [address] Care Team Providers Care Plant Control Aide Name Role Phone [place] Guzmán DO Primary Care Provider [phone] Encounter Details Date Type Department Care Team (Late st Contact Info) Description 04/30/2021 Telephone Dermatology at [facility] [address] [place] [address] Dawson Broderick MD [facility] [address] [place] [address] Social History Tobacco Use Types Packs/Day Years [...] encounter Miscellaneous Notes * Telephone Encounter - Yanira Luciano - 04/30/2021 9:08 AM EST I contacted patient today to reschedule his 05/[address] Broderick due to change in [facility] schedule. I was not able to speak w/ patient when I called but I was able to leave a brief message with his spouse when I called with [phone] for call back. Patient can be reschedule to 05/18 for a 15m visit on the hour or half hour. IF not convenient patient can be scheduled for a 15 minute visit on any Monday [facility] is in clinic on the hour or half hour. documented in this encounter Plan of Treatment Upcoming Encounters Date Type Department Care Team (Late st Contact Info) Description 10/31/2023 9:15 AM EDT Office Visit Dermatology at [facility] [address] [place] [address] Dawson Broderick MD [facility] [address] [address] 07/23/2024 9:30 AM EDT Office Visit Dermatology at [facility] [address] [place] [address] Dawson Broderick MD [facility] [place] [address] documented as of this encounter Visit Diagnoses Not on filedocumented in this encounter Care Teams Plant Control Aide Relationship Specialty Start Date End Date [place] Guzmán DO [address] [place] [address] [place] [address] PCP - General General Internal Medicine 02/20/15 documented as of this encounter
--- OUTSIDE RECORDS SUMMARY | 2023-10-23 09:04 | XMS_ITS | Encounter Summary ---
[place] [address] Care Team Providers Care Machine Tester Name Role Phone [place] Guzmán DO Primary Care Provider [phone] Encounter Details Date Type Department Care Team (Late st Contact Info) Description 01/21/2020 Orders [place] [address] Walter Rae MD [facility] [place] [address] Status post right knee replacement; Status post right hip replacement Social History Tobacco Use Types Packs/Day Years [...] 9:15 AM EDT Office Visit Dermatology at [facility] [address] [place] [address] Dawson Broderick MD [facility] [address] [place] [address] 07/23/2024 9:30 AM EDT Office Visit Dermatology at [facility] [address] [place] [address] Dawson Broderick MD [facility] [address] [place] [address] documented as of this encounter Results * XR Pelvis and [...] ? Electronically signed by: Page Butt MD, [facility] ([phone]), at 01/23/2020 2:16 PM Narrative 01/23/2020 2:16 [...] below. Electronically signed by: Page Butt MD, [facility]([phone]), at 01/23/2020 2:16 PM Walter Rae MD IMG DX ORDERABLES documented in this encounter Visit Diagnoses Diagnosis Status post right knee replacement Status post right hip replacement Hip joint replacement by other means Status post total left knee replacement Status post right hip replacement Hip joint replacement by other means documented in this encounter Care Teams Machine Tester Relationship Specialty Start Date End Date [place] Guzmán DO [address] [place] [address] [place] [phone] PCP - General General Internal Medicine 02/20/15 documented as of this encounter
--- OUTSIDE RECORDS SUMMARY | 2023-10-23 09:04 | XMS_ITS | Encounter Summary ---
Author Organization [facility] [place] [address] Care Team Providers Care Cmo Name Role Phone [place] Guzmán DO Primary Care Provider [phone] Encounter Details Date Type Department Care Team (Late st Contact Info) Description 06/02/2020 11:30 AM EST Office Visit Dermatology at [address] [address] Dawson Broderick MD [facility] [address] [place] [address] History of melanoma Social History Tobacco Use [...] Progress Notes * Dawson Broderick MD - 06/02/2020 11:30 AM EST Gunnar Morin 06/02/2020 [id number] Kandy Broderick MD ([id number]) Chief Problem: 1. Pigmented Lesion and Skin Cancer Examination 2. 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 History: 75 y.o. male. Establishedpatient to me. Patient reports having surgery on his left knee. Patient presents to the clinic today for a full skin cancer examination with history as listed above.Specific areas of concern today include itchy, dry, scaly patches on left hand and face. He appliestacrolimus 0.1% ointment at least a dozen times a month. He finds it only takes the scale away and just makes it red. He has a hard time keeping the ointment on the skin. Overall doing very well, he sees nothing new. Happy with progress, 3 years post excision and immunotherapy. Medications: reviewed All: reviewed Review of Systems: Feels well, no fatigue, no weight loss, no other skin concerns Current Outpatient Medications on File Prior to Visit Medication Sig Dispense Refill ??? oxyCODONE (Roxicodone) 5 mg Tablet Take 1-2 tablets by mouth every 4 hours as needed for Pain (acute post-op surgical pain). (Patient not taking: Reported on 02/20/2020) 20 tablet 0 ??? acetaminophen (Tylenol) 500 mg Tablet Take 2 tablets by mouth every 8 hours. Continue the Tylenol around the clock for 10 days after surgery, (12/21/2019). Then may take if needed per package insert. Do not take more than 3,000 mg of Tylenol in 24 hours. ??? aspirin EC 81 mg Tablet, Delayed Release (E.C.) Take 1 tablet by mouth 2 times daily. Take withfood for 30 days after surgery. Last day = 01/10/2020. ??? gabapentin (Neurontin) 300 mg Capsule Take 1 capsule by mouth nightly. Take nightly before bed for sleep for 4 weeks after surgery. (Patient not taking: Reported on 02/20/2020) 30 capsule 0 ??? naproxen (NAPROSYN) 500 mg Tablet Take 1 tablet by mouth 2 times daily (with meals). Take with food for up to 6 weeks after surgery. (Patient not taking: Reported on 06/02/2020) 84 tablet 0 ??? polyethylene glycoL (Miralax) 17 gram Powder in Packet Take 17 g by mouth 2 times daily. (Patient not taking: Reported on 02/20/2020) ??? senna-docusate (Pericolace) 8.6-50 mg Tablet Take 2 tablets by mouth 2 times daily. (Patient not taking: Reported on 02/20/2020) ??? omeprazole (PriLOSEC) 20 mg Capsule, Delayed Release(E.C.) Take 1 capsule by mouth daily. Take daily while taking naproxen (Patient not taking: Reported on 06/02/2020) 42 capsule 0 ??? ezetimibe (Zetia) 10 mg Tablet ??? tacrolimus (PROTOPIC) 0.03 % Ointment Apply nightly to affected areas on face 30 g 0 ??? hydrocortisone 2.5 % Cream Apply topically to the affected areas on the face once daily as needed. 30 g 0 ??? carvedilol (COREG) 12.5 mg Tablet Take 12.5 mg by mouth 2 times daily (with meals). 4 ??? nitroGLYcerin (NITROSTAT) 0.4 mg Tablet, Sublingual Place 1 tablet under the tongue every 5 minutes as needed for Chest pain. (Patient not taking: Reported on 02/20/2020) 90 tablet 12 ??? clindamycin (CLEOCIN) 150 [...] left and right upper and lower extremities, buttocks, hands, and feet. The genitalia were also examined with patient consent. Specific findings: 1. History of 1.76mm melanoma located on the distal right shaft of penis s/p excision (12/2016) and imiquimod immunotherapy x 12 weeks ?- Hampton lamp negative ?- No signs of recurrence ?- No inguinal lymphadenopathy noted 2. Rest of examination clear. Nothing new or worrisome Assessment/Diagnosis: 1. History of melanoma, 1.76mm 2. Continued monitoring Treatment/Plan: Discussion - Spent over half of this visit discussing pathophysiology and the diagnosis, and counselling this patient on treatment options, expectations and follow-up plan. - Specifically discussed: 1. Sun avoidance re-emphasized, sunscreen, hats, clothing as always. Follow up: 1 year skin cancer exam, sooner if needed I am documenting this encounter acting as the scribe for and in the presence of [facility] I performed the above scribed service and agree with the accuracy of the documentation in this encounter, MD Kandy Carmona M.D. Department of Dermatology documented in this encounter Plan of Treatment Upcoming Encounters Date Type Department Care Team (Late st Contact Info) Description 10/31/2023 9:15 AM EDT Office Visit Dermatology at [facility] [address] [place] [address] Dawson Broderick MD [facility] [address] [place] [address] 07/23/2024 9:30 AM EDT Office Visit Dermatology at [facility] [address] [place] [address] Dawson Broderick MD [facility] [address] [place] [address] documented as of this encounter Visit Diagnoses Diagnosis History of melanoma Personal history of malignant melanoma of skin documented in this encounter Care Teams Cmo Relationship Specialty Start Date End Date [place] Guzmán DO [address] [place] [address] [place] [phone] PCP - General General Internal Medicine 02/20/15 documented as of this encounter
--- OUTSIDE RECORDS SUMMARY | 2023-10-23 09:04 | XMS_ITS | Encounter Summary ---
[place] [address] Care Team Providers Care Reimbursement Representative Name Role Phone [place] Guzmán DO Primary Care Provider [phone] Reason for Visit * Reason Onset Date Comments Appointment 02/24/2020 Encounter Details Date Type Department Care Team (Late st Contact Info) Description 02/24/2020 Telephone [place] [address] Walter Rae MD [facility] [place] [address] Appointment Social History Tobacco Use Types Packs/Day Years [...] encounter Miscellaneous Notes * Telephone Encounter - Ruchi Sosa - 02/26/2020 2:25 PM EST scheduled * Telephone Encounter - Ruchi Sosa - 02/24/2020 11:17 AM EST ATT#[phone] to reach patient to ask safety questions and schedule MRI for Left Knee. Please schedule nextavailable MRI appointment with patient. documented in this encounter Plan of Treatment Upcoming Encounters Date Type Department Care Team (Late st Contact Info) Description 10/31/2023 9:15 AM EDT Office Visit Dermatology at [facility] [address] [place] [address] Dawson Broderick MD [facility] [address] [place] [address] 07/23/2024 9:30 AM EDT Office Visit Dermatology at [facility] [address] [place] [place] [address] Dawson Broderick MD [facility] [address] [place] [address] documented as of this encounter Visit Diagnoses Not on filedocumented in this encounter Care Teams Reimbursement Representative Relationship Specialty Start Date End Date [place] Guzmán DO [address] [place] [address] JOHN Lab[place] [phone] PCP - General General Internal Medicine 02/20/15 documented as of this encounter
--- OUTSIDE RECORDS SUMMARY | 2023-10-23 09:04 | XMS_ITS | Encounter Summary ---
Author Organization [facility] [place] [address] Care Team Providers Care Stove Polisher Name Role Phone RamirezP[place] Susan MCDOWELL Primary Care Provider [phone] Reason for Visit * Auth/Cert Specialty Diagnoses / Procedures Referred By Omid shepherd Referred To Contact Diagnoses Presence of left artificial knee joint Arthrotomy disruption and quad tendon injury status post left total knee revision Procedures PRO UNLISTED PROCEDURE FEMUR/KNEE ARTHROTOMY WITH REPAIR QUADRICEPS TENDON (WRVU 8.81) Referral ID Status Reason Start Date Expiration Date Visits Re quested Visits Authorized [id number] 1 1 Encounter Details Date Type Department Care Team (Latest Contact Info) Description 04/08/2020 5:55 AM EST - 04/08/2020 10:07 AM EST Hospital Encounter [place] [address] Walter Rae MD [facility] [place] [address] Status post total left knee replacement Discharge Disposition: Home Social History Tobacco [...] Sign Reading Time Taken Comments Blood Pressure 149/71 04/08/2020 9:30 AM EST Pulse 78 04/08/2020 8:53 AM [...] bowel movement. You can also take an sauh-eus-khzagij medication, Miralax if needed to combat constipation. [...] as much as possible. Call your doctor ([phone]) if you develop: 1. Fever greater than 100.5 2. Severe nausea or vomiting 3. Increasing pain that is not controlled by pain medications 4. Increasing redness, swelling, or drainage from incisions 5. Change in sensation FOLLOW-UP APPOINTMENTS: 1. You will have follow-up appointments at [facility] as indicated below in Future Appointment and Orders. 2. You will need to have x-rays prior to your follow-up appointment on 04/23/20. Please come to Radiology, desk 3T, 1 hour BEFORE that appointment for those x-rays. Future Appointments Date Time Provider Department Center 04/23/2020 10:15 AM [facility] DX ROOM 2 Xray [facility] Rad 04/23/2020 11:20 AM Walter Rae MD [facility] ORTH 3C [facility] 06/02/2020 11:30 AM Dawson Broderick MD [facility] If you have questions or concerns: Monday [...] escorted out of department via wheelchair with ANIMAL SCIENCE INSTRUCTOR. documented in this encounter H&P Notes * [...] Rae MD - 04/08/2020 8:45 AM EST [facility] Operative Note Patient Name: Gunnar Morin : [id number] MR#: [id number] Case Date: 04/08/2020 Surgeon: Surgeon(s) and Role: [...] lower extremity was marked with a green tolowa dee-ni'. Patient was taken back to the operating [...] Vicryl sutures were used in a interrupted fxcnre-af-awlvi fashion to reapproximate the arthrotomy. The a [...] 10/31/2023 9:15 AM EDT Office Visit Dermatology [facility] [address] [place] [address] Dawson Broderick MD [facility] [place] [address] 07/23/2024 9:30 AM EDT Office Visit [facility] [address] [place] [address] Dawson Broderick MD [facility] [place] [address] documented as of this encounter Procedures Procedure Name Priority Date/Time Associated Diagnosis Comments Unlisted Procedure Femur/Knee (89054) 04/08/2020 7:25 AM EST Status post total [...] loosening 12/11/19 (Jevsevar) documented in this encounter Admitting Diagnoses Diagnosis [...] CRNA) documented in this encounter Care Teams Stove Polisher Relationship Specialty Start Date End Date [place] Guzmán DO [address] [place] [address] [place] [address] PCP - General General Internal Medicine 02/20/15 documented as of this encounter
--- OUTSIDE RECORDS SUMMARY | 2023-10-23 09:04 | XMS_ITS | Encounter Summary ---
Author Organization [facility] [place] [address] Care Team Providers Care Manager Statistical Programming Name Role Phone [place] Guzmán DO Primary Care Provider [phone] Encounter Details Date Type Department Care Team (Latest Contact Info) Description 06/02/2020 9:19 AM EST - 06/02/2020 11:59 PM [facility] Hospital Encounter XRay at [address] [place] [address] Walter Rae MD [facility] [place] [address] Rupture of left quadriceps tendon, subsequent encounter Discharge Disposition: Home Social History Tobacco Use [...] 9:15 AM EDT Office Visit Dermatology at [facility] [address] [place] [address] Dawson Broderick MD [facility] DR [address] [place] [address] 07/23/2024 9:30 AM EDT Office Visit Dermatology at [facility] [address] [place] [address] Dawson Broderick MD [facility] [place] [address] documented as of this encounter Procedures Procedure Name Priority Date/Time Associated Diagnosis Comments XR KNEE AP & LAT LEFT Routine 06/02/2020 9:33 AM EST Rupture of left quadriceps tendon, subsequent encounter documented in this encounter Results * XR Knee 1-2 [...] ? Electronically signed by: Geraldo Lau MD, [facility] ([phone]), at 06/02/2020 10:19 AM Narrative 06/02/2020 10:19 [...] encounter documented in this encounter Care Teams Manager Statistical Programming Relationship Specialty Start Date End Date [place] Guzmán DO [address] [place] [address] [place] [address] PCP - General General Internal Medicine 02/20/15 documented as of this encounter
--- OUTSIDE RECORDS SUMMARY | 2023-10-23 09:04 | XMS_ITS | Encounter Summary ---
[place] [address] Care Team Providers Care Sock And Stocking Ironer Name Role Phone Phoenix Guzmán DO Primary Care Provider [phone] Reason for Visit * Reason Comments Post Op 04/08/20 LEFT QUADRICE PS TENDON REPAIR W/ARTHROTOMY Encounter Details Date Type Department Care Team (Late st Contact Info) Description 04/23/2020 11:20 AM EST Office [place] [address] Walter Rae MD [facility] [place] [address] Rupture of left quadriceps tendon, subsequent encounter [...] Sign Reading Time Taken Comments Blood Pressure 128/84 04/23/2020 10:18 AM EST Pulse 95 04/23/2020 10:18 AM EST Temperature - - Respiratory Rate - - Oxygen Saturation - - Inhaled Oxygen Concentration - - Weight 131.5 kg (289 lb 14.5 oz) 2020 10:18 AM EST Height 182.9 cm (6' 0.01) 04/23/2020 1 0:18 AM EST Body Mass Index 39.31 04/23/2020 10:18 AM EST documented in this encounter Progress Notes * Gunnar Couch MD - 04/23/2020 11:20 AM EST Arthroplasty/Orthopaedic History: 1. s/p L [...] after undergoing left TKA quadriceps tendon repair. reports that he has been doing incredibly well and has not been taking any pain medications because he is in no pain. He has been wearing the hinged knee brace locked in extension and has beenable to ambulate with a cane without difficulty. He does complain of discomfort with bathing and sleeping with the brace, however, and is adamant that he would like to discontinue use of the brace assoon as possible. He denies having any issues with the incision and denies having any fevers, chills, nausea, vomiting, chest pain, shortness of breath, tingling, or numbness. Anticoagulation status ASA 81mg BID for 30 days discussed stop date 05/09/2020 ROS: See above. BP 128/84 Pulse 95 Ht 182.9 cm (6' 0.01) Wt 131.5 kg (289 lb 14.5 oz) BMI 39.31 kg/m?? Physical Exam: Well-appearing male in no acute distress. Alert and Oriented x 3 and answers all questions appropriately. The incision is well healed, with no signs of infection. [place] removed in clinic today. Knee Exam: Left Knee ROM: Extension:0 Flexion: 90 Alignment: 0-4 degrees Neutral Stability: A/P Translation <5mm Varus <5mm Valgus <5mm Extension La degrees or less Patella Tracking: Normal Pulses Palpable: Left PT:Yes Left DP:Yes Motor/Sensory: Distal Motor: Normal Distal Sensory: Normal Quadriceps Strength: 5 There is no pain with range of motion of the knee. The knee is moderately swollen. No erythema, ecchymosis, or drainage. Questionnaire Responses: [facility] Surgical Postop Visit 04/22/2020 PROMIS-10 General Health Very Good PROMIS-10 Quality of Life Very Good PROMIS-10 Physical Health Very Good PROMIS-10 Mental Health Very Good PROMIS-10 Social Activity Very Good PROMIS-10 Everyday Activities Moderately PROMIS-10 Pain 2 PROMIS-10 Fatigue None PROMIS-10 Social Roles Good PROMIS-10 Anxious or Depressed Never PROMIS [...] Choose Same Treatment Again Probably yes Orthopeadics [facility] Response 02/14/2020 HOOS JR Scores 100 KOOS JR Scores - Spine [facility] Response 02/14/2020 HOOS JR Scores 100 KOOS JR Scores - ASSESSMENT/PLAN: Mr. Morin is a 75 y.o. male with significant arthroplasty history who returns to clinic today two weeks after undergoing a left quadriceps tendon repair. His [place] were removed today and he has been ambulating without pain, keeping his brace locked in extension. Mr. Morin is adamant that he wishes to discontinue use of the brace. We came to an agreement that he may stop wearing the brace, but was encouraged to maintain left knee extension as much as was reasonably possible.He agrees to be particularly careful when navigating stairs. We reviewed the risk of arthrotomy/quadriceps re-rupture and Mr. Morin stated that he, too, would very much not like to have another surgery. In that case, he agrees to be cautious. We will plan to see him back in 4 weeks for repeat evaluation. At that time we will likely begin range of motion. He has 15 days remaining of ASA for DVT prophylaxis. Mr. Morin expressed understanding and agreed with the plan. All questions were answered. Patient seen and evaluated with Dr. Rae. Gunnar Couch MD Orthopaedic Surgery PGY5 * Walter Rae MD - 04/23/2020 11:20 AM EST I have seen the patient and reviewed Gunnar Couch MD's history/physical and I agree with the details as written. The assessment and plan were formulated in discussion with me and I agree with them as documented. Walter Rae MD, MS 04/23/2020 documented in this encounter Plan of Treatment Upcoming Encounters Date Type Department Care Team (Late st Contact Info) Description 10/31/2023 9:15 AM EDT Office Visit Dermatology at [facility] [place] [address] [place] [address] Dawson Broderick MD [facility] [address] [place] [address] 07/23/2024 9:30 AM EDT Office Visit Dermatology at [facility] [place] [address] [place] [address] Dawson Broderick MD [facility] [address] [place] [address] documented as of this encounter Visit Diagnoses Diagnosis Rupture of left quadriceps tendon, subsequent encounter documented in this encounter Care Teams Sock And Stocking Ironer Relationship Specialty Start Date End Date Phoenix Guzmán DO [address] [place] [address] [place] [phone] PCP - General General Internal Medicine 02/20/15 documented as of this encounter
--- OUTSIDE RECORDS SUMMARY | 2023-10-23 09:04 | XMS_ITS | Encounter Summary ---
Author Organization [facility] [place] [address] Care Team Providers Care Entry Level Marketing Representative Name Role Phone Phoenix Guzmán DO Primary Care Provider [phone] Encounter Details Date Type Department Care Team (Late st Contact Info) Description 06/08/2021 2:30 PM EST Office Visit Dermatology at [facility] [address] [place] [address] Dawson Bolton MD [facility] [address] [place] [address] History of melanoma; Venous lowe of lip; Tinea pedis, unspecified laterality; Seborrheic keratoses Social History Tobacco Use Types Packs/Day Years [...] Progress Notes * Dawson Bolton MD - 06/08/2021 2:30 PM EST Images from the original note were not [...] returns to clinic today for a fullskin exam. Patient denies any specific skin concerns today; no lesions that are new, changing or symptomatic. Lesion on the penis is just a scar, looks good, nothing worrisome per patient. Happy. Last visit at Dermatology: 12/01/2020 Last visit with this provider: 12/01/2020 Medications: Reviewed in eD-H Allergies: Reviewed in [...] chest - NER - Continue clinical monitoring ?? # Tinea Pedis - b/l feet - Benign. Not bothersome to patient - No treatment necessary # Lipoma - right forearm - Benign. Pt reassured ?? # Venous Lowe - left lower vermilion lip - Benign. Pt reassured # Seborrheic Keratoses - [place]-brown papules/plaques with waxy, stuck-on appearance scattered on thetrunk and extremities. - Benign. No treatment necessary # Cyst - right lower crural fold - Benign. Advised not removing at this time unless symptomatic. Other: ??? N/A RTC: 6 months for FSE []Note routed to secretary board of commissioners []Recall placed in scheduling system [x]Appointment scheduled at checkout Scribe attestation: ABE Camacho has performed the documentation for this encounter in the presence of and acting as a scribe for DAWSON BOLTON MD. I performed the above scribed service and agree with the accuracy of the documentation in this encounter. Reviewed and signed by: DAWSON BOLTON MD Dermatology [facility] documented in this encounter Plan of Treatment Upcoming Encounters Date Type Department Care Team (Late st Contact Info) Description 10/31/2023 9:15 AM EDT Office Visit Dermatology at [facility] [address] [place] [address] Dawson Bolton MD [facility] [address] [place] [address] 07/23/2024 9:30 AM EDT Office Visit Dermatology at [facility] [address] [place] [address] Dawson Bolton MD [facility] [address] [place] [address] documented as of this encounter Visit Diagnoses Diagnosis History of melanoma Personal history of malignant melanoma of skin Venous lowe of lip Hemangioma of skin and subcutaneous tissue Tinea pedis, unspecified laterality Seborrheic keratoses documented in this encounter Care Teams Entry Level Marketing Representative Relationship Specialty Start Date End Date Phoenix Guzmán DO [address] [place] [address] [place] [address] PCP - General General Internal Medicine 02/20/15 documented as of this encounter
--- OUTSIDE RECORDS SUMMARY | 2023-10-23 09:05 | XMS_ITS | Encounter Summary ---
Author Organization [facility] [place] [address] Care Team Providers Care Clinical Informatics Spec Name Role Phone Phoenix Guzmán DO Primary Care Provider [phone] Reason for Visit * Reason Comments Skin Check Encounter Details Date Type Department Care Team (Late st Contact Info) Description 01/23/2018 9:30 AM EDT Office Visit Dermatology at [facility] [address] [place] [address] Dawson Broderick MD [facility] [address] [place] [address] History of melanoma; History of melanoma in situ; Multiple benign nevi; SK (seborrheic keratosis) Social History Tobacco Use Types Packs/Day Years [...] Progress Notes * Dawson Broderick MD - 01/23/2018 9:30 AM EDT Images from the original note were not included. Gunnar Morin 01/23/2018 [id number] Kandy Broderick MD ([id number]) Chief Problem: 1. Pigmented Lesion and Skin Cancer Examination , Full examination today 2. 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 History: 72 y.o. year old male. Established patient to me. No significant changes in health or medications since last visit 07/25/2017. Patient presents here today for a total body skin examination with history as listed above. Specific areas of concern today include the biopsy site on chest is red and swollen. As above, has had a penile melanoma, treated with excision, and imiquimod immunotherapy for MIS at the periphery. Successful. We are all pleased. Medications: reviewed All: reviewed Review of Systems: Feels well, no fatigue, no weight loss, no other skin concerns. 7 weeks ago had had hip revision. Current Outpatient Medications on File Prior to Visit Medication Sig Dispense Refill ??? acetaminophen (TYLENOL) 500 mg Tablet Take [...] Chest pain. (Patient not taking: Reported on 01/08/2018) 90 tablet 12 ??? clindamycin (CLEOCIN) 150 mg Capsule See Admin Instructions. Reported on 07/28/2016 No current facility-administered medications on file prior to visit. Examination: Patient was alert, well-appearing and in no noticeable distress. Patient asked to undress to their comfort level. Provider preference is to take everything off. If clothing is left on we will not look there. Patient was asked to disrobe to the level of their comfort. A total body skin exam was performed. This includes examination of the skin of the face, ears, neck, chest, axillae, left and right upper and lower extremities, hands, feet, abdomen, and back. Genitalia, buttocks and breasts were also examined with patient consent. Specific findings: 1. 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 Benign appearing nevi located on the trunk and extremities 4. Seborrheic keratosis, located on the trunk Photo taken with patient consent by Dr. Kandy Broderick Assessment/Diagnosis: 1. History of melanoma 2. Benign appearing nevi 3. Seborrheic keratosis. Patient reassured. Treatment/Plan: Discussion - Spent over half of this visit discussing pathophysiology and the diagnosis, and counselling this patient on treatment options, expectations and follow-up plan. Specifically discussed: 1. Sun avoidance re-emphasized, sunscreen, hats, clothing as always. 2. Combined decision was made to continue to have skin exams every 6 months. 3. No melanoma recurrence on penis based on today's examination. Must have follow up. Follow up: 6 months for a skin cancer exam, sooner if needed I am documenting this encounter acting as the scribe for and in the presence of Dr. Broderick,CHINA OSEI LPN and Nellie Weiner I performed the above scribed service and agree with the accuracy of the documentation in this encounter, MD Kandy Carmona M.D. Section of Dermatology documented in this encounter Plan of Treatment Upcoming Encounters Date Type Department Care Team (Late st Contact Info) Description 10/31/2023 9:15 AM EDT Office Visit Dermatology at [facility] [address] [place] [address] Dawson Broderick MD [facility] [place] [address] 07/23/2024 9:30 AM EDT Office Visit Dermatology at [facility] [address] [place] [address] Dawson Broderick MD [facility] [place] [address] documented as of this encounter Visit Diagnoses Diagnosis History of melanoma Personal history of malignant melanoma of skin History of melanoma in situ Personal history of malignant melanoma of skin Multiple benign nevi Benign neoplasm of skin, site unspecified SK (seborrheic keratosis) Other seborrheic keratosis documented in this encounter Care Teams Clinical Informatics Spec Relationship Specialty Start Date End Date Phoenix Guzmán DO [address] [place] [address] [place] [address] PCP - General General Internal Medicine 02/20/15 documented as of this encounter
--- OUTSIDE RECORDS SUMMARY | 2023-10-23 09:05 | XMS_ITS | Encounter Summary ---
Author Organization [facility] [place] [address] Care Team Providers Care Rehab Nursing Tech Name Role Phone Phoenix Guzmán Primary Care Provider [phone] Encounter Details Date Type Department Care Team (Latest Contact Info) Description 08/08/2019 9:22 AM EDT - 08/08/2019 11:59 PM EDT Hospital Encounter XRay at [address] [place] [address] Walter Rae MD [facility] [place] [address] H/O total knee replacement, bilateral Discharge Disposition: Home Social History Tobacco Use [...] Sig Dispensed Refills Start Date End Date ezetimibe (Zetia) 10 mg Tablet 07/11/2019 tacrolimus [...] See Admin Instructions. Reported on 07/28/2016 04/13/2015 acetaminophen (TYLENOL) 500 mg Tablet Take 2 tablets by mouth every 8 hours. Continue the Tylenol around the clock for 10 days after surgery, (12/11/2017). Then may take if needed per package insert. Do not take more than 3,000 mg of Tylenol in 24 hours. 12/02/2017 12/12/2019 aspirin 81 mg Tablet, Delayed Release (E.C.) Take 81 mg by mouth daily. 12/12/2019 documented as of this encounter Plan of Treatment Upcoming Encounters Date Type Department Care Team (Late st Contact Info) Description 10/31/2023 9:15 AM EDT Office Visit Dermatology at [facility] [address] [place] [address] Dawson Broderick MD [facility] [address] [place] [address] 07/23/2024 9:30 AM EDT Office Visit Dermatology at [facility] [address] [place] [address] Dawson Broderick MD [facility] [place] [address] documented as of this encounter Procedures Procedure Name Priority Date/Time Associated Diagnosis Comments XR KNEE AP AND LAT BILAT Routine 08/08/2019 9:49 AM EDT H/O total knee replacement, bilateral documented in this encounter Results * XR Knee 1-2 Views Bilat (Generic) (08/08/2019 9:49 AM EDT) Anatomical Region Laterality Modality Knee Bilateral Digital Radiogra phy Impressions 08/08/2019 9:53 AM EDT 1. ??Status post uncomplicated right total knee arthroplasty. 2. ??Status post left total knee arthroplasty. There is similar to slight increase in the lucency at the bone-metal interface along the anterior margin of the femoral component. This finding is of unclear clinical significance and needs to be correlated with any clinical symptoms of pain or loosening. 3. ??Large left knee effusion is nonspecific. Thank you for letting us participate in the care of this patient. For questions regarding this report, please contact the number below. ? Narrative 08/08/2019 9:53 AM EDT EXAMINATION: XR KNEE 1-2 VIEWS BILAT (GENERIC) CLINICAL HISTORY: BILAT TKA (as entered by ordering provider in the order requisition) TECHNIQUE: 2 views BILATERAL knee. AP view the bilateral knees, lateral views of each knee. COMPARISON: Knee radiographs most recently 10/12/2017 and dating back to 10/08/2015. FINDINGS: Right: Status post right total knee arthroplasty. Mild anterior soft tissue swelling. No large knee joint effusion. No periprosthetic fracture or bone resorption. No change in alignment. Left: Status post left total knee arthroplasty. Anterior knee soft tissue swelling. Large left knee joint effusion. No periprosthetic fracture. There is increasing lucency at the bone-metal interface along the anterior margin of the femoral component, now measuring 4 mm, previously measuring 3 mm. Procedure Note Alannah Hernandez MD - 08/08/2019 EXAMINATION: XR KNEE 1-2 VIEWS BILAT (GENERIC) CLINICAL HISTORY: BILAT TKA (as entered by ordering provider in theorder requisition) TECHNIQUE: 2 views BILATERAL knee. AP view the bilateral knees, lateral views of eachknee. COMPARISON: Knee radiographs most recently 10/12/2017 and dating back to 10/08/2015. FINDINGS: Right: Status post right total knee arthroplasty. Mild anterior softtissue swelling. No large knee joint effusion. No periprosthetic fracture orbone resorption. No change in alignment. Left: Status post left total knee arthroplasty. Anterior knee softtissue swelling. Large left knee joint effusion. No periprosthetic fracture.There is increasing lucency at the bone-metal interface along the anterior marginof the femoral component, now measuring 4 mm, previously measuring 3 mm. IMPRESSION 1. Status post uncomplicated right total knee arthroplasty. 2. Status post left total knee arthroplasty. There is similar to slight increase in the lucency at the bone-metal interface along the anteriormargin of the femoral component. This finding is of unclear clinical significanceand needs to be correlated with any clinical symptoms of pain or loosening. 3. Large left knee effusion is nonspecific. Thank you for letting us participate in the care of this patient. Forquestions regarding this report, please contact the number below. Walter Rae MD IMG DX ORDERABLES documented in this encounter Visit Diagnoses Diagnosis H/O total knee replacement, bilateral documented in this encounter Care Teams Rehab Nursing Tech Relationship Specialty Start Date End Date Phoenix Guzmán DO [address] [place] [address] [place] [phone] PCP - General General Internal Medicine 02/20/15 documented as of this encounter
--- OUTSIDE RECORDS SUMMARY | 2023-10-23 09:05 | XMS_ITS | Encounter Summary ---
[facility] [place] [id number] Care Team Providers Care Mortgage Assistant Name Role Phone DevantePhoenix orozco Primary Care Provider [phone] Reason for Referral * Consultation (Routine) - Specialty Diagnoses / Procedures Referred By Omid shepherd Referred To Contact Orthopaedic Surgery Diagnoses Recurrent dislocation, right hip Julia Soriano APRN [facility] [place] [address] Referral ID Status Reason Start Date Expiration Date V isits Requested Visits Authorized [id number] Assume Subset of Care 12/02/2017 05/31/2018 1 1 Reason for Visit * Auth/Cert Specialty Diagnoses / Procedures Referred By Omid shepherd Referred To Contact Diagnoses Recurrent dislocation, right hip recurrent dislocation R hip RECURRENT DISLOCATION,RIGHT HIP Procedures PRO REVISE TOTAL HIP REPLACEMENT @TOTAL HIP REVISION ARTHROPLASTY, COMPLETE (WRVU 30.28) Referral ID Status Reason Start Date Expiration Date Visits Re quested Visits Authorized [id number] 1 1 Encounter Details Date Type Department Care Team (Latest Contact Info) Description 12/01/2017 9:01 AM EDT - 12/02/2017 4:13 PM EDT Hospital Encounter [address] [place] [address] Italo Hanna MD [facility] [place] [address] 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 Hanna) Discharge Disposition: Home Social History Tobacco Use [...] Sign Reading Time Taken Comments Blood Pressure 107/64 12/02/2017 11:29 AM EDT Pulse 54 12/01/2017 3:00 PM EDT Temperature 36.7 ??C (98.1 ??F) 12/02/2017 11:29 AM E DT Respiratory Rate 16 12/02/2017 11:29 AM EDT Oxygen Saturation 94% 12/02/2017 11:29 AM EDT Inhaled Oxygen Concentration - - Weight 133.8 kg (295 lb) 12/01/2017 9:32 AM EDT Height 182.9 cm (6') 12/01/2017 9:32 AM EDT Body Mass Index 40.01 12/01/2017 9:32 AM EDT documented in this encounter Discharge Summaries * Julia Soriano, DIAMOND CUTTER - 12/02/2017 1:23 PM EDT Discharge Summary Patient Name: Gunnar Morin Patient Age: 72 y.o. Language: Turkish Race: White Ethnicity: Not nor Admit date: 12/01/2017 Discharge date and time: 12/02/2017 Attending Physician: Italo Hanna MD Discharge Physician: Italo aHnna MD Follow-up Recommendations for Providers: See discharge instructions for additional details. Future Appointments Date Time Provider Department Center 01/08/2018 10:00 AM [facility] DX ROOM 1 Xray [facility] 01/08/2018 11:00 AM Italo Hanna MD [facility] 01/23/2018 9:30 AM Dawson Broderick MD [facility] Inpatient Provider Contact Information: Italo Hanna MD Orthopedics: [phone] After hours and weekends, call [facility] Pre Owned Sales Manager, , and have the Orthopedic resident paged. Discharge Diagnoses (Hospital Problems) and Secondary Diagnoses (Chronic Problems): Active Hospital Problems Diagnosis ??? 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 Hanna) ??? Morbid obesity with BMI of 40.0-44.9, adult Resolved Hospital Problems Diagnosis Date Resolved No resolved problems to display. Active Non-Hospital Problems Diagnosis ??? sp R TKA on 09/21/16 Butch ??? Status post total knee replacement ??? Monitoring for anticoagulant use ??? Status post total replacement of right hip ??? 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 H/O total hip arthroplasty ??? 09/07/2015 S/P Left total knee arthroplasty (Dr. Rae) ??? DJD (degenerative joint disease) of knee ??? CAD (coronary artery disease) ??? Arthritis of knee ??? s/p revision R ELZBIETA with head-liner exchange 06/29/16 (Dr. Rae) with dislocation(12/2016) ??? Osteoarthritis of both knees ??? Bilateral knee pain Operations/Major Procedures: 12/01/2017 Surgeon(s) and Role: * Italo Hanna MD - Primary * Lg Simental MD - Resident-Surgeon Benjamin Procedure(s): RIGHT TOTAL HIP REVISION ARTHROPLASTY, COMPLETE MODIFIER RECLAIM DEPUY MODIFIER S-ROM FEMORAL STEM DEPUY MODIFIER G7 / DUAL MOBILITY HIP REVISION JUAN BIOMET History of Presentation: Gunnar Morin is a 72 y.o. 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 After having failed conservative, non-surgical attempts at managing the pain and limitations of functional capabilities (instability), it was felt that the only remaining option was surgical. A detailed conversation regarding the risks and benefits of hip revision surgery was had with the patient. The risks discussed included but were not limited to: bleeding (which may or may not require transfusion), infection, damage to nerves or blood vessels, deep venous thr ombosis, pulmonary embolus, prosthetic failure, loosening, prosthetic fracture, femur or pelvic fracture, dislocation, leg-length inequality, persistent pain, need for future surgery, medical complications (including cardiac, respiratory and neurologic complications), anaesthetic complications, anddeath. Subsequent to this conversation, all of the patient???s questions were answered in great detail and informed consent was obtained for a right total hip arthroplasty revision. He received preoperative medical clearance and was felt optimized for surgery. Hospital Course: The patient was admitted via Same Day Surgery for the above operation. DVT prophylaxis was: Coumadin. Patient began rehab on POD#1 for weight bearing as tolerated of right leg and reinforcement of the enhanced ELZBIETA Precautions and abduction brace on when out of bed. [place] was removed on POD#1 and patient was voiding spontaneously without difficulty. The right hip silver Mepilex dressing to remain in place 7 days, was inspected on POD#1 and was dry and intact. Patient did not have a bowel movement prior to discharge but was passing flatus and was taking a diet without difficulty. By POD#1 the patient was medically stable and was cleared for safe discharge to home per PT. Of Note: On POD#1, he was a difficult stick for blood work and required IV nurse to draw (CBC hemolyzed). Vital Signs at Discharge: Weight: Wt Readings from Last 1 Encounters: 12/01/18 133.8 kg (295 lb) Height: Ht Readings from Last 1 Encounters: //18 182.9 cm (6') HC: HC Readings from Last 1 Encounters: No data found for HC BMI: Body mass index is 40.01 kg/(m^2). Last value Range last 24 hrs Temperature Temp: 36.7 ??C (98.1 ??F) Temp: [36.3 ??C (97.3 ??F)-37.2 ??C (99 ??F)] Heart Rate Heart Rate: 54 Heart Rate: -- Blood Pressure BP: 107/64 BP: (107-131)/(64-86) Respiratory Rate Resp: 16 Resp: [16-18] SpO2 SpO2: 94 % SpO2: [93 %-98 %] Art BP BP (Arterial Line): -- Functional and Cognitive Status: Patient mobilizing with a walker and abduction brace in place, cognitively intact at baseline mental status at time of discharge. Important Lab Data: Last 3 wbc, hgb, hct plt Recent Labs 11/09/17 1250 03/14/17 1221 WBC 6.0 5.0 HGB 15.3 15.4 HCT 45.8 45.1 PLATELET 245 224 Last 3 Lytes Recent Labs 12/02/17 1040 11/09/17 1250 03/14/17 1221 NA 139 142 139 K 4.5 4.9 5.0 CL 103 100 100 CO2 26 27 27 BUN 17 18 19 CREATININE 1.22 1.39 1.36 Last Ca, Mg, Phos Recent Labs 12/02/17 1040 CALCIUM 7.9* Last 3 Coags Recent Labs 12/02/17 1040 12/01/17 1810 PT 12.5 12.5 INR 1.1 1.1 Studies: Xray Pelvis (generic) Result Date: 12/01/2017 EXAMINATION: XR PELVIS (GENERIC) CLINICAL HISTORY: s/p revision R ELZBIETA TECHNIQUE: AP portable supinepelvis radiograph on 12/01/2017 at 1410 hours. COMPARISON: 07/25/2017 at 1124 hours. FINDINGS: Right hip revision arthroplasty hardware appears well-seated. No periprosthetic fracture or other immediate postoperative complication is identified. Surgical clips ejecting over the region of both hips, asbefore. Unchanged appearance of the bony pelvic ring in the left hip. No immediate post revision arthroplasty complication identified. Pending Studies and Lab Data at Discharge: [...] gabapentin 300 mg Cap Commonly known as: NEURONTIN Take 1 capsule by mouth nightly. Take nightly before bed for sleep for 4 weeks after surgery. 300 mg Quantity: 30 capsule Refills: 0 oxyCODONE 5 mg Tab Commonly known as: ROXICODONE Take 1 tablet by mouth every 4 hours as needed for Pain. 5 mg Refills: 0 polyethylene glycol 17 gram Pwpk Commonly known as: MIRALAX Take 17 g by mouth 2 times daily. 17 g Refills: 0 senna-docusate 8.6-50 mg Tab Commonly known as: PERICOLACE Take 2 tablets by mouth 2 times daily. 2 tablet Refills: 0 warfarin 5 mg Tab Commonly known as: COUMADIN Take 1 tablet by mouth daily for 30 days. You may need to break or combine pills to achieve the right dose. 5 mg Quantity: 45 tablet Refills: 0 Continued medications with new dosing Dose Details acetaminophen 500 mg Tab Commonly known as: TYLENOL Take 2 tablets by mouth every 8 hours. Continue the Tylenol around the clock for 10 days after surgery, (12/11/2017). Then may take if needed per package insert. Do not take more than 3,000 mg of Tylenol in 24 hours. What changed: additional instructions 1000 mg Refills: 0 Continued medications, unchanged Dose Details aspirin 81 mg Tbec Take 81 mg by mouth daily. 81 mg Refills: 0 carvedilol 12.5 mg Tab Commonly known as: COREG Take 12.5 mg by mouth 2 times daily (with meals). 12.5 mg Refills: 4 clindamycin 150 mg Cap Commonly known as: CLEOCIN See Admin Instructions. Reported on 07/28/2016 Refills: 0 hydrocortisone 2.5 % Crea Apply topically to the affected areas on the face once daily as needed. Quantity: 30 g Refills: 0 nitroGLYcerin 0.4 mg Subl Commonly known as: NITROSTAT Place 1 tablet under the tongue every 5 minutes as needed for Chest pain. 0.4 mg Quantity: 90 tablet Refills: 12 tazarotene 0.1 % Crea Commonly known as: TAZORAC Apply topically to the right shaft of the penis once daily for 2 weeks then stop Quantity: 30 g Refills: 0 tretinoin 0.1 % Crea Commonly known as: RETIN-A Apply topically to the right shaft of the penis once daily for 2 weeks then stop Quantity: 20 g Refills: 0 Smoking Status at Discharge: History Smoking Status ??? Former Smoker ??? Quit date: 01/11/2001 Smokeless Tobacco ??? Never Used Instructions Given to Patient at Discharge: Patient Instructions Activity: 1. Your weight-bearing status is - weight bearing as tolerated of right leg with abduction brace inplace at all times when out of bed. 2. Remember to use a walker or crutches at all times for balance and protection. 3. Remember your hip precautions: Enhanced: DO NOT flex the operative leg more than 90 degrees. DO NOT cross your legs. USE a raised seating / toilet seat. Use a pillow or the Abduction pillow between your legs to remind you not to cross your legs. Anticoagulation follow-up: You are being discharged home on Coumadin??, see below for instructions. Coumadin?? (warfarin) Management upon Discharge Reason for anticoagulation therapy: DVT (blood clot) prevention after Orthopedic surgery. Your Coumadin?? (warfarin) dosing instruction upon discharge is: - Day of discharge (12/02/2017): Take 5 mg (one of the 5mg pills) at 5 PM. If the Visiting Nurse is unable to come until 12/04/2017, then take Coumadin 5 mg on 12/03/2017 at 5 pm. Your next INR is scheduled on: The VNA will either come on 12/03 or 12/04. This will bechecked by the Visiting Nurses. It is very important that you have your PT/INR checked regularly as your dose may change based on your lab values, at least twice per week (usually every Monday and ). INR Goal: 1.7-2.2 Expected duration of treatment: 30 days (last day = 12/31/2017) - After your dose on 12/31/2017, stop the Coumadin??. Provider/Team responsible for ongoing outpatient anticoagulation management: - Provider/Team/Clinic: Orthopedic Coumadin Clinic - - If you have not received a call from your provider, by 4pm, after having your INR drawn, please call the Orthopedic Clinic Nurse at [phone] for further dose instructions. If it is after 5pm or on the weekends, the Orthopedic resident concrete pipe maker will be managing your dosing (please call [phone] and ask for them to be paged). Warfarin (Coumadin??) should be taken at the same time every day, usually at 5pm. The following table shows your most recent INR results and Coumadin?? doses: Date Notes INR Coumadin?? dose 12/01 day of operation 1.1 5 mg 12/02 D/C POD#1 1.1 5 mg due at 5 pm If your INR level is ever above 3.5 you should not participate in aggressive Physical therapy exercises - you can mobilize/ambulate. This will decrease the possibility of more bleeding into your joint. Once your INR is less than 3.5 you can resume Physical therapy. One of the Orthopedic nurses willcall you with further instructions as needed. Warfarin Education that was reviewed with you in the hospital: (please see your warfarin (Coumadin??) reference sheet for more information) ? Diet and medications can affect your INR ? Maintaining a diet with a consistent amount of vitamin K containing foods is important to keep your INR in range ? Avoid major changes in dietary habits ? Do not take or discontinue any prescription or sfvf-nwq-szbkuue medications without asking your doctor or pharmacist ? Inform all your doctors, pharmacists and other healthcare providers that you take warfarin ? Warfarin increases your risk of bleeding If you experience any of these signs or symptoms of bleeding or blood clot please seek immediate medical attention: ?? Increased pain, swelling or sudden shortness of breath ?? Severe headache ?? Dizziness ?? Unusual bleeding or bruising ?? Changes in urine or bowel movement color ?? Coughing or spitting up blood or nosebleeds that do not stop or occur more often Diet: Resume your usual diet but increase [...] bowel movement. You can also take an jget-cbb-bkoycop medication, Miralax if needed to combat constipation. 2. If you need a renewal on your narcotic pain medication, you need to give the Orthopedic clinic enough time to process your request. This can take up to three days, so plan accordingly. 3. Continue acetaminophen (Tylenol) 1,000mg every 8 hours around the clock until 12/11/2017 (for tendays after your surgery). This can [...] tolerated. 5. You are being discharged on gabapentin (Neurontin), [...] operative dressing 7 days after your surgery (12/08/2017). When it is removed you can leave the incision open to air or cover it with a light dressing. 3. If you have lots of drainage when you get home (and it is before 12/08/2017), remove the operativedressing and replace it with dry sterile [...] as much as possible. Call your doctor ([phone]) if you develop: 1. Fever greater than 100.5 2. Severe nausea or vomiting 3. Increasing pain that is not controlled by pain medications 4. Increasing redness, swelling, or drainage from incisions 5. Change in sensation FOLLOW-UP APPOINTMENTS: 1. You will have follow-up appointments at [facility] as indicated below in Future Appointment and Orders. 2. You will need to have x-rays prior to your follow-up appointment on 01/08/2018. Please come to Radiology, desk 3T, 1 hour BEFORE that appointment for these x-rays. Future Appointments Date Time Provider Department Center 01/08/2018 10:00 AM [facility] DX ROOM 1 Xray [facility] Rad Clin 01/08/2018 11:00 AM Italo Hanna MD [facility] Ortho 3C [facility] 01/23/2018 9:30 AM Dawson Broderick MD [facility] If you have questions or concerns: Monday through Monday, 8 AM - 5 PM, please call Italo Zee MD's office at . If it is after 5 PM, the weekend, or holidays, please call and ask to speak with theOropedic resident on-call. General Instructions None Future Appointments and Orders Future Appointments Provider Department Dept Phone 01/08/2018 10:00 AM [facility] DX ROOM 1 XRay at [facility] [phone] Please go to Supplier Quality Area 3T ([facility] Location). 01/08/2018 11:00 AM Italo Hanna MD Orthopaedics at [facility] [phone] 01/23/2018 9:30 AM Dawson Broderick MD Dermatology at [facility] [phone] Future Orders Complete By Expires Referral for Anticoagulation Monitoring [[id number] Custom] As directed Process Instructions: If no progress note charted, please enter Clinical details in comments. Scheduling Instructions: Questions: INR Goal: 1.8-2.2 Responsible Group: [facility] Target End Date: 12/31/2017 Next due INR: 12/03/2017 Risk Factors: [facility]NA may not be able to see him until Monday, 12/04 My question or request is: Coumadin, s/p revision Right ELZBIETA 12/01/2017 Referral to Home Health - at DISCHARGE [[id number] CPT(R)] As directed Process Instructions: Scheduling Instructions: Comments: DOCUMENTATION FOR VNA SERVICES (INCLUDING THOSE PATIENTS WITH MEDICARE COVERAGE REQUIRING HOME VNA SERVICES AND/OR HOSPICE SERVICES) Gunnar Morin Discharge to own [place] [address] [place] [id number] (home) Lead Oracle Developer's Name: self and In discussion with the attending physician, it is certified that this patient is under their care and that they, or a nurse practitioner, clinical nurse specialist or physician's salon assistant who is working directly with them, had a face to face encounter that meets the physician face to face encounter requirements with this patient on 12/02/2017 The encounter with the patient was in whole, or in part, for the following medical condition, whichis the primary reason for home health care services: s/p right ELZBIETA 12/01/2017 In discussion with the provider, it is certified that, based on their findings, the following services are medically necessary for home health services. To provide the following care/treatments with the clinical findings supporting the need for services as follows: Home Health Agency: [facility] PHONE: [phone] FAX: [phone] Home care orders for Total Hip Revision: (RN+PT) RN: 1. Draw PT/INR as follows: (point of care testing is acceptable) Week of discharge: PER MD/FLAG SIGNALER/PA ORDERS - Draw INR on Monday or Monday, 12/03 or 12/04/2017 Thereafter, PT/INR: every Monday and PT/INR results to be reported as follows: Mon-Mon Ortho anticoagulation (Coumadin) clinic @ [facility] ; Sat/Sun: if the PT/INR is dreqn on the weekend, call results to Ortho Resident concrete pipe maker @ [phone] for coumadin dosing 2. Assess wound, pain management, medication effectiveness and management, elimination, nutrition `Do not lift the edge of the mepilex dressing to observe the incision; this dressing needs to stay in place until 7 days after surgery. 3. Staple or Suture removal not necessary - subcutaneous. PT: Continue rehab for balance, endurance, joint mobility, ROM, Strength, ELZBIETA protocol Remember hip precautions: Enhanced: DO NOT flex the operative leg more than 90 degrees. DO NOT cross your legs. USE a raised seating / toilet seat. Use a pillow or the Abduction pillow between your legs to remind you not to cross your legs. Abduction brace on when out of bed. FOR MEDICARE ONLY: In discussion with the attending physician, it is certified that the clinical findings support thatthis patient is homebound ;i.e. absences from home require considerable and taxing effort due to:lower extremity brace at baseline now post op 12/01/17 R ELZBIETA revision, needing walker also and assist of one to safely manage community surfaces Please note that any additional orders needs or changes will need to be obtained from this patient's PCP: Phoenix Guzmán DO [address] [address] All VNA agencies which cover the area of patient's residence have been reviewed, either verbally santy writing, and patient/family have chosen the home health care agency as noted for home services. Questions: Agency name and contact information: [facility] Patient location post discharge: own home What services are requested: Physical Therapy Registered Nurse Start date: Responsible MD post discharge contact info: [facility] Orthopedic Service Primary Care Provider: Phoenix Guzmán DO [phone] Discharge References/Attachments None documented in this encounter Discharge Instructions * Patient Instructions* Bo Julia P, DIAMOND CUTTER - 12/02/2017 2:16 PM EDT Activity: 1. Your weight-bearing status is - weight bearing as tolerated of right leg with abduction brace inplace at all times when out of bed. 2. Remember to use a walker or crutches at all times for balance and protection. 3. Remember your hip precautions: Enhanced: DO NOT flex the operative leg more than 90 degrees. DO NOT cross your legs. USE a raised seating / toilet seat. Use a pillow or the Abduction pillow between your legs to remind you not to cross your legs. Anticoagulation follow-up: You are being discharged home on Coumadin??, see below for instructions. Coumadin?? (warfarin) Management upon Discharge Reason for anticoagulation therapy: DVT (blood clot) prevention after Orthopedic surgery. Your Coumadin?? (warfarin) dosing instruction upon discharge is: - Day of discharge (12/02/2017): Take 5 mg (one of the 5mg pills) at 5 PM. If the Visiting Nurse is unable to come until 12/04/2017, then take Coumadin 5 mg on 12/03/2017 at 5 pm. Your next INR is scheduled on: The VNA will either come on Monday, 12/03 or Monday, 12/04. This will bechecked by the Visiting Nurses. It is very important that you have your PT/INR checked regularly as your dose may change based on your lab values, at least twice per week (usually every Monday and ). INR Goal: 1.7-2.2 Expected duration of treatment: 30 days (last day = 12/31/2017) - After your dose on 12/31/2017, stop the Coumadin??. Provider/Team responsible for ongoing outpatient anticoagulation management: - Provider/Team/Clinic: Orthopedic Coumadin Clinic - - If you have not received a call from your provider, by 4pm, after having your INR drawn, please call the Orthopedic Clinic Nurse at [phone] for further dose instructions. If it is after 5pm or on the weekends, the Orthopedic resident concrete pipe maker will be managing your dosing (please call [phone] and ask for them to be paged). Warfarin (Coumadin??) should be taken at the same time every day, usually at 5pm. The following table shows your most recent INR results and Coumadin?? doses: Date Notes INR Coumadin?? dose 12/01 day of operation 1.1 5 mg 12/02 D/C POD#1 1.1 5 mg due at 5 pm If your INR level is ever above 3.5 you should not participate in aggressive Physical therapy exercises - you can mobilize/ambulate. This will decrease the possibility of more bleeding into your joint. Once your INR is less than 3.5 you can resume Physical therapy. One of the Orthopedic nurses willcall you with further instructions as needed. Warfarin Education that was reviewed with you in the hospital: (please see your warfarin (Coumadin??) reference sheet for more information) ? Diet and medications can affect your INR ? Maintaining a diet with a consistent amount of vitamin K containing foods is important to keep your INR in range ? Avoid major changes in dietary habits ? Do not take or discontinue any prescription or sbxj-klz-arabvmb medications without asking your doctor or pharmacist ? Inform all your doctors, pharmacists and other healthcare providers that you take warfarin ? Warfarin increases your risk of bleeding If you experience any of these signs or symptoms of bleeding or blood clot please seek immediate medical attention: ?? Increased pain, swelling or sudden shortness of breath ?? Severe headache ?? Dizziness ?? Unusual bleeding or bruising ?? Changes in urine or bowel movement color ?? Coughing or spitting up blood or nosebleeds that do not stop or occur more often Diet: Resume your usual diet but increase [...] bowel movement. You can also take an svhu-kob-gvndwei medication, Miralax if needed to combat constipation. 2. If you need a renewal on your narcotic pain medication, you need to give the Orthopedic clinic enough time to process your request. This can take up to three days, so plan accordingly. 3. Continue acetaminophen (Tylenol) 1,000mg every 8 hours around the clock until 12/11/2017 (for tendays after your surgery). This can [...] tolerated. 5. You are being discharged on gabapentin (Neurontin), [...] operative dressing 7 days after your surgery (12/08/2017). When it is removed you can leave the incision open to air or cover it with a light dressing. 3. If you have lots of drainage when you get home (and it is before 12/08/2017), remove the operativedressing and replace it with dry sterile [...] as much as possible. Call your doctor ([phone]) if you develop: 1. Fever greater than 100.5 2. Severe nausea or vomiting 3. Increasing pain that is not controlled by pain medications 4. Increasing redness, swelling, or drainage from incisions 5. Change in sensation FOLLOW-UP APPOINTMENTS: 1. You will have follow-up appointments at [facility] as indicated below in Future Appointment and Orders. 2. You will need to have x-rays prior to your follow-up appointment on 01/08/2018. Please come to Radiology, desk 3T, 1 hour BEFORE that appointment for these x-rays. Future Appointments Date Time Provider Department Center 01/08/2018 10:00 AM [facility] DX ROOM 1 Xray [facility] 01/08/2018 11:00 AM Italo Hanna MD [facility] 01/23/2018 9:30 AM Dawson Broderick MD [facility] If you have questions or concerns: Monday through Monday, 8 AM - 5 PM, please call Italo Zee MD's office at . If it is after 5 PM, the weekend, or holidays, please call and ask to speak with theOrthopedic resident on-call. documented in this encounter Medications at Time of Discharge Medication Sig Dispensed Refills Start Date End Date hydrocortisone 2.5 % Cream Apply topically to [...] See Admin Instructions. Reported on 07/28/2016 04/13/2015 warfarin (COUMADIN) 5 mg Tablet Take 1 tablet by mouth daily for 30 days. You may need to break or combine pills to achieve the right dose. 45 tablet 12/02/2017 01/01/2018 oxyCODONE (ROXICODONE) 5 mg Tablet Take 1 tablet by mouth every 4 hours as needed for Pain. 12/02/2017 01/08/2018 acetaminophen (TYLENOL) 500 mg Tablet Take 2 tablets by mouth every 8 hours. Continue the Tylenol around the clock for 10 days after surgery, (12/11/2017). Then may take if needed per package insert. Do not take more than 3,000 mg of Tylenol in 24 hours. 12/02/2017 12/12/2019 gabapentin (NEURONTIN) 300 mg Capsule Take 1 capsule by mouth nightly. Take nightly before bed for sleep for 4 weeks after surgery. 30 capsule 12/02/2017 01/08/2018 polyethylene glycol (MIRALAX) 17 gram Powder in Packet Take 17 g by mouth 2 times daily. 12/02/2017 01/08/2018 senna-docusate (PERICOLACE) 8.6-50 mg Tablet Take 2 tablets by mouth 2 times daily. 12/02/2017 01/08/2018 tazarotene (TAZORAC) 0.1 % CreamIndications:Malig nant melanoma, unspecified site Apply topically to the right shaft of the penis once daily for 2 weeks then stop 30 g 02/09/2017 01/08/2018 tretinoin (RETIN-A) 0.1 % CreamIndications:Malig nant melanoma, unspecified site Apply topically to the right shaft of the penis once daily for 2 weeks then stop 20 g 02/09/2017 01/08/2018 aspirin 81 mg Tablet, Delayed Release (E.C.) Take 81 mg by mouth daily. 12/12/2019 documented as of this encounter Progress Notes * Clementine Armstrong RN - 12/02/2017 3:23 PM EDT Pt d/c to home per md order. Patient AOx4 hrr, lung sounds clear, no n/v sob or chest pain at time of discharge. +bs, lbm 12/01, voiding clear yellow urine. Patient ambulating independently with a walker at this time. Pain well controlled with oxycodone. All LDA's removed. All belongings home with patient. Prescriptions given to patient, all discharge instructions reviewed with patient. All questions answered. Please see flowsheet for full assessment. Clementine Armstrong RN * Gunnar Humphrey OT - 12/02/2017 1:27 PM EDT OCCUPATIONAL THERAPY Order received and chart reviewed. Following discussion with Physical Therapy, patient, and his ; pt demonstrated to the Physical Therapist he can don abduction brace independently, pt has good home set up and all AE/AD/modified ADL strategies needed for successful return home w/ assistance from his . Pt has no OT needs at this time. Anticipate pt will return home when medically appropriate for d/c. Gunnar Humphrey OT Pager: [phone] * Chau Simeon - 12/02/2017 6:13 AM EDT ORTHOPAEDIC SURGERY INPATIENT PROGRESS NOTE Patient Name: Gunnar Morin Age: 72 y.o. Surgery/Issue: Right Total Hip Arthroplasty Revision Attending: ITALO HANNA Date of surgery: 12/01/2017 SUBJECTIVE / INTERVAL HISTORY: NAEON. He is frustrated that he has not gotten up out of bed yet. He refused labs this morning. Otherwise asymptomatic. No numbness or tingling. [place] in place, plan to dc this morning. FOCUSED REVIEW OF SYSTEMS: as above. Active Hospital Problems Diagnosis ??? 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 Hanna) Resolved Hospital Problems Diagnosis Date Resolved No resolved problems to display. Active Non-Hospital Problems Diagnosis ??? sp R TKA on 09/21/16 Rae ??? Status post total knee replacement ??? Monitoring for anticoagulant use ??? Status post total replacement of right hip ??? 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 H/O total hip arthroplasty ??? Obesity, Class II, BMI 35-39.9 ??? 09/07/2015 S/P Left total knee arthroplasty (Dr. Rae) ??? DJD (degenerative joint disease) of knee ??? CAD (coronary artery disease) ??? Arthritis of knee ??? s/p revision R ELZBIETA with head-liner exchange 06/29/16 (Dr. Rae) with dislocation(12/2016) ??? Osteoarthritis of both knees ??? Bilateral knee pain MEDICATIONS: ??? aspirin EC tablet 81 mg ??? carvedilol (COREG) tablet 12.5 mg ??? sodium chloride 0.9 % flush 5 mL ??? sodium chloride 0.9 % flush 5-20 mL ??? lidocaine (XYLOCAINE) 10 mg/mL (1 %) injection 3 mg ??? polyethylene glycol (MIRALAX) packet 17 g ??? senna-docusate (PERICOLACE) 8.6-50 mg per tablet 2 tablet ??? lactulose (CHRONULAC) 20 gram/30 mL oral solution 20-40 g ??? bisacodyl (DULCOLAX) EC tablet 10 mg ??? bisacodyl (DULCOLAX) suppository 10 mg ??? acetaminophen (TYLENOL) tablet 1,000 mg ??? gabapentin (NEURONTIN) capsule 600 mg FOLLOWED BY [START ON 12/03/2017] gabapentin (NEURONTIN) capsule 300 mg ??? ketorolac (TORADOL) injection 15 mg ??? celecoxib (CeleBREX) capsule 200 mg ??? pantoprazole (PROTONIX) tablet 20 mg ??? sodium chloride 0.9% infusion ??? oxyCODONE (ROXICODONE) immediate release tablet 5-15 mg ??? ondansetron (ZOFRAN) tablet 4 mg OR ondansetron (ZOFRAN) injection 4 mg ??? warfarin (COUMADIN) daily order reminder ??? ceFAZolin (ANCEF) 1g in dextrose 5% 50mL ??? BUpivacaine (PF) (MARCAINE) 0.25 % (2.5 mg/mL) injection ??? bacitracin injection ??? cloNIDine injection ??? ketorolac (TORADOL) injection ??? povidone-iodine 5 % ophthalmic solution ??? sodium chloride 0.9% 1,000 mL (12/01/17 2031) OBJECTIVE: Temp: [36.2 ??C (97.2 ??F)-37.1 ??C (98.8 ??F)] Heart Rate: [54-69] Resp: [9-22] BP: (106-143)/(63-85) Intake/Output Summary (Last 24 hours) at 12/02/17 0613 Last data filed at 12/02/17 0400 Gross per 24 hour Intake 2360 ml Output 2470 ml Net -110 ml Body mass index is 40.01 kg/(m^2). PE: General: NAD, awake/alert CV: RRR assessed peripherally Resp: Breathing comfortably on RA RLE: Dressing c/d/i. Motor intact to EHL, FHL, TA. Sensation intact in foot/calf/thigh. Brisk capillary refill distally. Lab Results Component Value Date NA 142 11/09/2017 K 4.9 11/09/2017 CL 100 11/09/2017 CO2 27 11/09/2017 BUN 18 11/09/2017 CREATININE 1.39 11/09/2017 GLUCOSE 115 11/09/2017 GLUCFASTING 100 (H) 07/11/2015 CALCIUM 9.0 11/09/2017 Lab Results Component Value Date WBC 6.0 11/09/2017 HGB 15.3 11/09/2017 HCT 45.8 11/09/2017 MCV 95.4 (H) 11/09/2017 PLATELET 245 11/09/2017 Lab Results Component Value Date INR 1.1 12/01/2017 Imaging: AP Pelvis The right hip is reduced. There is no evidence of intra-op fracture. ASSESSMENT / PLAN: Gunnar Morin is a 72 y.o. male 1 Day Post-Op s/p right ELZBIETA revision, progressing well with stable vitals. Plan to dc [place], and ambulate with PT/OT this morning. Activity: WBAT RLE, enhanced hip precautions, abduction pillow in bed, abduction brace ( shouldbe bringing) when ambulating. Closure: Resorbable sutures Dressing: Mepilex x 7 days Drain: None Anticoagulation: Warfarin (goal INR ~2) for 30 days Antibiotics: Periop Ancef Consults: PT/OT Dispo: Per PT/OT Follow-up: As scheduled *No NSAIDs at discharge Chau Simeon MD 12/02/2017 Future Appointments Date Time Provider Department Center 01/08/2018 10:00 AM [facility] DX ROOM 1 Xray [facility] 01/08/2018 11:00 AM Italo Hanna MD [facility] 01/23/2018 9:30 AM Dawson Broderick MD [facility] * Clementine Armstrong RN - 12/01/2017 6:34 PM EDT [facility] via bed from PACU s/p R ELZBIETA revision. Patient AOx 4, HRR, lung sounds clear, lbm 11/30, [place] draining CYU urine. +csmt to all extremities. Dressing clean dry and intact. Pain 04/12 at this time. Patient oriented to room, call [place]dwell to bedside, please see flowsheet for full as sessment. Will continue to monitor Clementine Armstrong RN * Lauri Fagan MD - 12/01/2017 5:21 PM EDT ORTHOPAEDIC SURGERY INPATIENT PROGRESS NOTE Patient Name: Gunnar Morin Age: 72 y.o. Surgery/Issue: Right Total Hip Arthroplasty Attending: ITALO HANNA Date of surgery: 12/01/2017 SUBJECTIVE / INTERVAL HISTORY: Denies CP, SOB, nausea, vomiting, numbness/weakness. Pain well controlled. FOCUSED REVIEW OF SYSTEMS: as above. Active Hospital Problems Diagnosis ??? 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 Hanna) Resolved Hospital Problems Diagnosis Date Resolved No resolved problems to display. Active Non-Hospital Problems Diagnosis ??? sp R TKA on 09/21/16 Rae ??? Status post total knee replacement ??? Monitoring for anticoagulant use ??? Status post total replacement of right hip ??? 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 H/O total hip arthroplasty ??? Obesity, Class II, BMI 35-39.9 ??? 09/07/2015 S/P Left total knee arthroplasty (Dr. Rae) ??? DJD (degenerative joint disease) of knee ??? CAD (coronary artery disease) ??? Arthritis of knee ??? s/p revision R ELZBIETA with head-liner exchange 06/29/16 (Dr. Rae) with dislocation(12/2016) ??? Osteoarthritis of both knees ??? Bilateral knee pain MEDICATIONS: ??? [START ON 12/02/2017] aspirin EC tablet 81 mg ??? carvedilol (COREG) tablet 12.5 mg ??? sodium chloride 0.9 % flush 5 mL ??? sodium chloride 0.9 % flush 5-20 mL ??? lidocaine (XYLOCAINE) 10 mg/mL (1 %) injection 3 mg ??? polyethylene glycol (MIRALAX) packet 17 g ??? senna-docusate (PERICOLACE) 8.6-50 mg per tablet 2 tablet ??? lactulose (CHRONULAC) 20 gram/30 mL oral solution 20-40 g ??? bisacodyl (DULCOLAX) EC tablet 10 mg ??? bisacodyl (DULCOLAX) suppository 10 mg ??? acetaminophen (TYLENOL) tablet 1,000 mg ??? gabapentin (NEURONTIN) capsule 600 mg FOLLOWED BY [START ON 12/03/2017] gabapentin (NEURONTIN) capsule 300 mg ??? ketorolac (TORADOL) injection 15 mg ??? celecoxib (CeleBREX) capsule 200 mg ??? pantoprazole (PROTONIX) tablet 20 mg ??? sodium chloride 0.9% infusion ??? oxyCODONE (ROXICODONE) immediate release tablet 5-15 mg ??? ondansetron (ZOFRAN) tablet 4 mg OR ondansetron (ZOFRAN) injection 4 mg ??? [START ON 12/02/2017] warfarin (COUMADIN) daily order reminder ??? ceFAZolin (ANCEF) 1g in dextrose 5% 50mL ??? BUpivacaine (PF) (MARCAINE) 0.25 % (2.5 mg/mL) injection ??? bacitracin injection ??? cloNIDine injection ??? ketorolac (TORADOL) injection ??? povidone-iodine 5 % ophthalmic solution ??? sodium chloride 0.9% 1,000 mL (12/01/17 1413) OBJECTIVE: Temp: [36.2 ??C (97.2 ??F)-36.7 ??C (98.1 ??F)] Heart Rate: [54-69] Resp: [9-] BP: (106-143)/(63-85) Intake/Output Summary (Last 24 hours) at 12/01/17 1721 Last data filed at 12/01/17 1600 Gross per 24 hour Intake 2120 ml Output 1020 ml Net 1100 ml Body mass index is 40.01 kg/(m^2). PE: General: NAD, awake/alert CV: RRR assessed peripherally Resp: Breathing comfortably on RA RLE: Dressing c/d/i. Motor intact to EHL, FHL, TA. Sensation intact in foot/calf/thigh. Brisk capillary refill distally. Lab Results Component Value Date NA 142 11/09/2017 K 4.9 11/09/2017 CL 100 11/09/2017 CO2 27 11/09/2017 BUN 18 11/09/2017 CREATININE 1.39 11/09/2017 GLUCOSE 115 11/09/2017 GLUCFASTING 100 (H) 07/11/2015 CALCIUM 9.0 11/09/2017 Lab Results Component Value Date WBC 6.0 11/09/2017 HGB 15.3 11/09/2017 HCT 45.8 11/09/2017 MCV 95.4 (H) 11/09/2017 PLATELET 245 11/09/2017 Lab Results Component Value Date INR 1.0 11/09/2017 Imaging: AP Pelvis The right hip is reduced. There is no evidence of intra-op fracture. ASSESSMENT / PLAN: Gunnar Morin is a 72 y.o. male Day of Surgery s/p right ELZBIETA, progressing wellwith stable vitals. Activity: WBAT RLE, enhanced hip precautions, abduction pillow in bed, abduction brace ( shouldbe bringing) when ambulating. Closure: Resorbable sutures Dressing: Mepilex x 7 days Drain: None Anticoagulation: Warfarin (goal INR ~2) for 30 days Antibiotics: Periop Ancef Consults: PT/OT Dispo: Per PT/OT Follow-up: As scheduled *No NSAIDs at discharge Lauri Fagan MD 12/01/2017 Future Appointments Date Time Provider Department Center 01/08/2018 10:00 AM [facility] DX ROOM 1 [facility] 01/08/2018 11:00 AM Italo Hanna MD [facility] 01/23/2018 9:30 AM Dawson Broderick MD [facility] documented in this encounter H&P Notes * Lg Simental MD - 12/01/2017 10:34 AM EDT Please see H&P note for visit documentation. The patient's history and physical exam have been reviewed and completed. There has been no interval change from that of the pre-operative history and physical exam done on 11/09/17 (within the last 30days). documented in this encounter Miscellaneous Notes * Plan of Care - Michelle Cavazos, PT - 12/02/2017 3:44 PM EDT Physical Therapy Evaluation Pertinent History of Current Problem: 72 yo M s/p right TH revision. Pt with h/o recurrent right hip dislocations post ELZBIETA and revision, right and left TKAs Precautions/Restrictions: fall, hip Precautions Comments: (enhanced right hip precautions; hip abduction brace) Assessment: Mr Morin presents with difficulty with bed mobility, transfers and gait on levels and stairs d/t post operative pain, limited hip ROM d/t precautions. He is able to mobilize safely with AD without assistance. Please see associated flow sheet data below for objective information regarding today's session: 12/02/17 9405 Rehab Evaluation Document Type evaluation Total Evaluation Minutes, Physical Therapy 48 (therex and eval) Patient Effort excellent Symptoms Noted During/After Treatment increased pain General Information Patient Profile Review yes Patient/Family/Caregiver Comments/Observations I've been lying here for over 24 hours! General Observations of Patient Lying in bed, HOB up Pertinent History of Current Problem 72 yo M s/p right TH revision. Pt with h/o recurrent right hipdislocations post ELZBIETA and revision, right and left TKAs Precautions/Restrictions fall;hip Precautions Comments (enhanced right hip precautions; hip abduction brace) Treatment Number PT 1 (& 2) Living Environment Patient population Adult Living Environment Living Environment Comment Ambulates independently with abduction brace, independent with enhanced hip precautions - has been helping with socks & shoes. 2 KVNG house with post to hold, 1 flight of stairs to bedroom but can stay on first floor in recliner if necessary. Has shower seat and commode Self-Care Equipment Currently Used at Home yes Equipment Currently Used at Home bath bench;cane, straight;commode;crutches, axillary;dressing device;grab bar;walker, rolling Vital Signs O2 Device RA Vision Assessment/Intervention Additional Documentation (WNL) Cognitive Assessment/Intervention Additional Documentation (WNL) Pain Scale/Rating Pain Assessment Scale Numbers (Numeric Rating Pain Scale) Pain Level 8 Pain Assessment Numbers/Faces/Word Pain Body Location - Side Right (Initially c/o back pain from epidural attempts - resolved;) Pain Body Location hip Factors That Aggravate Pain walking Factors That Relieve Pain cold application Pain Management Interventions cold applied ROM (Range of Motion) Additional Documentation (right hip limited by precautions) Mobility Assessment/Training Additional Documentation Bed Mobility Assessment/Treatment (Group);Gait Assessment/Treatment (Group);Stairs Assessment/Treatment (Group);Transfer Assessment/Treatment (Group) Bed Mobility Assessment/Treatment Trtius-ws-Tkh Cloud (Bed Mobility) independent Impairments (Bed Mobility) flexibility decreased;pain;strength decreased Comment (Bed Mobility) (maintains precautions well) Transfer Assessment/Treatment Cloud (Sit-Stand Transfers) conditional independence Cloud (Stand-Sit Transfers) independent Tuj-Uorbs-Jro Assistive Device (Transfers) rolling walker Impairments (Transfers) flexibility decreased;pain Gait Assessment/Treatment Cloud (Gait) conditional independence Assistive Device (Gait) rolling walker Distance in Feet (Gait) 200 Gait Pattern Analysis swing-through gait Impairments (Gait) flexibility decreased;pain Stairs Assessment/Treatment Number of Stairs (Stairs) 3 Handrail Location (Stairs) left side (ascending) Cloud (Stairs) supervision required Assistive Device (Stairs) straight cane Technique (Stairs) [id number] (ascending);[id number] (descending) Maintain Weight Bearing Status (Stairs) able to maintain weight bearing status Impairments (Stairs) flexibility decreased;pain AM-PAC Basic Mobility AM-PAC Mobility Completed? Yes How much difficulty does the patient currently have turning over in bed (including adjusting bedclothes, sheets and blankets)? 3 - A Little How much difficulty does the patient currently have sitting down on and standing up from a chair without arms (e.g. wheelchair, bedside commode etc. )? 3 - A Little How much difficulty does the patient currently have moving from lying to back to sitting on the side of the bed? 3 - A Little How much help from another person does the patient currently need moving to and from a bed to a chair (including a wheelchair)? 4 - None How much help from another person does the patient currently need to walk in the hospital room? 4 -None How much help from another person does the patient currently need clmibing 3-5 steps with a railing? 4 - None [facility] Basic Mobility Raw Score 21 Basic Mobility Standardized T-Scale Score 50.25 Basic Mobility CMS 0-100% 28.97 [facility] Basic Mobility CMS Modifier CJ Motor Skills/Interventions Additional Documentation Therapeutic Exercise (Group) Therapeutic Exercise Lower Extremity (Therapeutic Exercise) gastroc stretch, bilateral;gluteal sets;hamstring sets, bilateral;quad sets, bilateral;SAQ (short arc quad), bilateral;other (see comments) (adductor sets) Sets/Reps (Therapeutic Exercise) 04/12 Orthotics/Prosthetics Additional Documentation Orthosis Location/Type (Group) Orthosis Location/Type Location/Type (Orthosis) lower extremity Lower Extremity (Orthosis) hip aBduction orthosis Coping Observed Emotional State cooperative Verbalized Emotional State acceptance Plan of Care Review Plan Of Care Reviewed With patient;spouse Progress progress toward functional goals as expected Clinical Impression Therapy Frequency evaluation only Anticipated Discharge Disposition home with assist;home with home health Demonstrates Need for Referral to Another Service (home PT) Staff Mobility Recommendations: ambulate with FWW independently Anticipated Discharge Disposition: (S) home with assist, home with home health MICHELLE CAVAZOS, PT Pager: [phone] Inpatient Physical Therapy G-Code: Mobility Status Modifier CURRENT CJ - At least 20 percent but less than 40 percent impaired, limited or restricted PROJECTED CJ - At least 20 percent but less than 40 percent impaired, limited or restricted DISCHARGE CJ - At least 20 percent but less than 40 percent impaired, limited or restricted G Code Rationale: This G-Code and these disability modifiers were selected as the primary therapy goal based upon the patient's evaluation including the following functional test(s) AM-PAC - ActivityMeasure for Post-Acute Care. Current ability measures, co-morbidities and clinical judgement were also used to select the disability modifier. This Patient's current G-Code functional level is 28.97%impaired based upon AM-PAC. 2017 PT Evaluation Code Rationale: ?? Diagnosis & Pertinent Co-Morbidities, personal factors, and present illness affecting Plan of Care: Patient Active Problem List Diagnosis Code ??? s/p revision R ELZBIETA with head-liner exchange 06/29/16 (Dr. Rae) with dislocation(12/2016) Z96.649 ??? Osteoarthritis of both knees M17.0 ??? Bilateral knee pain M25.561, M25.562 ??? Arthritis of knee M17.10 ??? CAD (coronary artery disease) I25.10 ??? DJD (degenerative joint disease) of knee M17.10 ??? Morbid obesity with BMI of 40.0-44.9, adult E66.01, Z68.41 ??? 09/07/2015 S/P Left total knee arthroplasty (Dr. Rae) Z96.659 ??? H/O total hip arthroplasty Z96.649 ??? 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 Monitoring for anticoagulant use Z51.81, Z79.01 ??? Status post total knee replacement Z96.659 ??? sp R TKA on 09/21/16 Butch M17.11 ??? 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 Hanna) M24.451 Additional personal factors or co-morbidities that impact plan: Pain, enhanced hip precautions ?? Total # of Factors: 0 1-2 3+ x ?? Examination of body system impairments, functional limitations and behaviors, and/or participation restrictions. Addressing 1-2 elements Addressing 3 + elements x Addressing 4 + elements ?? Clinical presentation: See assessment above. Stable/Uncomplicated Evolving/Fluctuating Symptoms Unstable/Unpredictable x ?? Clinical decision making of moderate complexity based on pt's functional performance as outlinedin this evaluation. * Op Note - Italo Hanna MD - 12/01/2017 2:[address] [facility] Operative Note Patient Name: Gunnar Morin : [id number] MR#: [id number] Case Date: 12/01/2017 Surgeon: Surgeon(s) and Role: * Italo Hanna MD - Primary * Lg Simental MD - Resident-Surgeon Benjamin Preoperative diagnosis: recurrent dislocation R hip Postoperative diagnosis: recurrent dislocation R hip Procedure(s) (LRB): @TOTAL HIP REVISION ARTHROPLASTY, COMPLETE (WRVU 30.28) (Right) MODIFIER RECLAIM DEPUY (Right) MODIFIER S-ROM FEMORAL STEM DEPUY (N/A) MODIFIER G7 / DUAL MOBILITY HIP REVISION JUAN BIOMET (Right) Anesthesia: Failed spinal with conversion to general Estimated Blood Loss: 700 mL IVF: 2000ml of crystaloid Urine Output: 225ml Drains: none Specimens removed during surgery: None Surgical Closure: Primary Closure - skin incision is completely closed without any wires, carter, drains or other devices Complications: None apparent Indications for the Procedure: Mr. Morin is a 72 y.o. 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 After having failed conservative, non-surgical attempts at managing the pain and limitations of functional capabilities (instability), it was felt that the only remaining option was surgical. A detailed conversation regarding the risks and benefits of hip revision surgery was had with the patient. The risks discussed included but were not limited to: bleeding (which may or may not require transfusion), infection, damage to nerves or blood vessels, deep venous thrombosis, pulmonary embolus, prosthetic failure, loosening, prosthetic fracture, femur or pelvicfracture, dislocation, leg-length inequality, persistent pain, need for future surgery, medical complications (including cardiac, respiratory and neurologic complications), anaesthetic complications, and . Subsequent to this conversation, all of the patient???s questions were answered in greatdetail and informed consent was obtained for a right total hip arthroplasty revision. He received preoperative medical clearance and was felt optimized for surgery. Today, he identified the right hipas the correct operative side. Implants: Acetabulum: Biomet G7 size 62mm Femoral Stem: Retained SROM Liner: Biomet G7 [id number] dual mobility Femoral Head: Depuy 28+6mm head inside Biomet 50mm dual mobility head Intraoperative Findings: No gross evidence of infection. Upon incising IT band joint fluid encountered through large posterior capsular soft tissue defect. Clear fluid encountered. Cell count was 515cells. Abductors were deficient and avulsed off the posterior troch. These were repaired at the end of the case. The femoral component was well fixed. The acetabular component was well fixed but retroverted. The acetabulum was revised to dual mobility. Cup increased 62mm with a 50mm dual mobility head. Hip was stable at the end of the case to 90o flexion, 45o internal rotation, 10o adduction. Procedure: The patient was met in the pre-operative holding area where the appropriate site was marked, 24 hour update completed, and the pre-operative checklist completed. He was then brought to the operating room on a stretcher where the above anesthetic was administered. A medina catheter was introduced under sterile conditions He was transferred to the operating table where he was then transitioned to the lateral decubitus position with the operative leg up. The hips were held in place with well padded hip positioners. An axillary roll was placed and all bony prominences were well padded. The non-operative leg had a venodyne in place. The operative leg was then prepped with chlorhexidine scrub followed by alcohol and DuraPrep. Once the prep was dry the leg was draped in a sterile fashion. A clinical time-out was held confirming the correct patient name, MRN, , planned procedure, site, antibiotic start time and agent, and outline of any surgical concerns. All in attendance were in agreement to proceed. Weight based dosing of tranexamic acid was administered prior to making an incision. Surgical Approach: A posterior approach to the hip was then undertaken. The skin was infiltrated with 10cc of 0.25% marcaine plain. The old scar was excised. The subcutaneous tissue was dissected sharply. Hemostasis was maintained using the electrocautery. The fascia overlying the gluteus rena and IT band was ident ified and incised in-line with it's fibers. A large gush of clear fluid was encountered which was sent for a cell count. This fluid was in continuity with the hip as the posterior capsule was incompetent. The decussation of the gluteus rena and TFL muscle fibers were then split bluntly. Full thickness flaps of IT band were created anterior and posterior. The sciatic nerve was difficult to identify but eventually it was located and protected. A charnely bow retractor was then placed to retract the fascia taking caution to protect the nerve posteriorly. Any fat pad and bursal tissue was swept off the posterior capsular structure. The subcutaneous tissues and muscle was then infiltrated with a combination of 0.25% marcaine, 50mcg of clonidine and 30mg of toradol. A total of 50cc was used throughout the case. A posterior longitudinal capsulotomy was then performed by elevating the posterior capsular structures off the back of the femur preserving this one thick flap for later repair at the time of closure. The capsule was released down towards the proximal portion of the quadratus and angled about 45o po sterior and proxmially from the posterior tip of the trochanter up on to the acetabulum being cautions to protect the abductors. Two #3 Vicryl tagging sutures were placed in the posterior soft tissuestructures for later repair. An extensive synovectomy was performed posterior and anterior to adequately identify the prosthesis. A plane deep to the abductors was created with a rouse elevator and a retractor was placed anteriorly. Once the capsule was opened the prosthesis was identified. The capsule and scar was released off the bone and the hip with then atraumatically dislocated. The femoral head was then removed using a bone tamp and a mallet. The head was easily removed and there was no gross evidence of trunion corrosion. The femoral stem was inspected and noted to be well fixed. There was osteolytic tissue proximally which was debrided. We continued the synovectomy anterior to create a pocket for the femoral stem. The femoral stem was then placed anterior to the acetabulum and held there with a retractor. A second retractor was placed in the obturator foramen. We continued our synovectomy circumferentially around the cup to fully expose it. The cup appeared retroverted. Once the cup was fully exposed and then used the Juan explant to create an interface between the bone and implant. First starting with a small blade and the large blade I was able to create an interface between the bone and implant and easily remove the cup. There is significant osteolysis behindthe cup tracking up into the pelvis. A large curette was used to remove all the osteolytic debris. We then copiously irrigated the wound. I sequentially reamed the acetabulum with a 58 mm reamer thata 60 mm reamer. I copiously irrigated the wound once again. I packed the acetabulum with 30 cc of cancellus bone graft. This was then reversed reamed with a 60 mm reamer. A 62 mm Biomet G7 cup was the n opened. This was impacted into place and noted to seat fully. It was hit with a secondary impactor and a Sputnik was used to aid in intraoperative anteversion and abduction. I then placed 5 screws first by drilling and measuring the appropriate depths. All screws were noted to seat fully with good purchase. Wound was irrigated once again. The metal liner was then placed within the acetabulum and impacted. It was noted to seat fully and engaged the locking mechanism. A trial head was then placed with a +6 head. The hip was brought through a full range of motion and found to be stable. Clinically leg lenghts felt symmetric. Satisfied, the trials they were then removed. The femoral head was impacted onto a cleaned and dried rojas taper and noted to seat fully. The femoral head was then reduced into the acetabulum. Closure: The wound was copiously irrigated. The posterior capsular structures were repaired using the #3 Vicryl. The posterior abductor was avulsed off the troch and deficient likely from his recurrent instability and this was over sewn to the troch and posterior soft tissue with #3 vicryl. The wound was irrigated again. The remaining pericapsular injection was infiltrated. The IT band fascia was tacked together with a 0 Vicryl then over sewn with a #2 running barbed suture. The wound was irrigated again and the deep tissues were closed using a 0 vicryl. A 2-0 vicryl was used to close the subcutaneouslayer. The skin was closed with a running monocryl and skin glue was used as biologic sealant. A kvng rile Mepilex Ag dressing was applied to the wound. The needle, sponge and instrument counts were correct at the end of the procedure. The patient was then transferred back to the stretcher where a venodyne was placed on the operativeleg. An abduction pillow was placed. Attestation: Case Date: 12/01/2017 I was present and I participated during the entire procedure (does not need to include opening and closing). ITALO HANNA MD 12/01/2017 Post-operative Plan: (avoid IV narcotics) ?? 5-10 mg Oxycodone Q 4 hours po PRN ?? 2 mg Dilaudid po for breakthrough pain q 3-4 hours?? PRN ?? for breakthrough pain 15 mg Toradol iv or im q 6 hours (max 4 doses) ?? 1000mg Tylenol po??? q8 hour ?? 600 mg Neurontin po qhs for 2 days followed by 300 mg Neurontin po qhs for 4 weeks (for insomnia) ?? Celebrex 200 mg po q 12 hours while in house with transition to Naprosyn 500mg bid at discharge PRN ?? Protonix 20mg qd x 2 weeks (or other PPI) ?? Zofran 4 mg po/iv q 8 hours PRN nausea ?? D/C Medina catheter in PACU or upon arrival to floor if concern for fluid status ?? AP Pelvis in PACU ?? Perioperative prophylactic antibiotics for the next 24 hours ?? Weight bearing status of operative extremity: Weight bearing as tolerated Posterior hip precautions with an abduction pillow while in bed. ABDUCTION BRACE X 6 WEEKS ?? Wound closure: Subcuticular absorbable suture with skin glue ?? Dressing changes: Mepilex Silver (Do not change for 7 days then a dry sterile dressing) ?? Follow-up Plan: As scheduled prior to surgery (approx. 5 weeks with x-rays) ?? Anticoagulation: Warfarin (goal INR ~2) for 30 days ?? Any possible barriers to discharge: None ?? Plan for hospital stay: Standard ?? Anticipated Length of Stay: 1-2 days Implant Summary: Implant Name Type Inv. Item Serial No. Muck Hauler Lot No. LRB No. Used Action SCREW,TRILOGY,HIP,6.5X40MM ([id number]) - [id number] IMPLANTS SCREW,TRILOGY,HIP,6.5X40MM ([id number]) [employer] [id number] Right 1 Implanted SCREW,TRILOGY,HIP,6.5X40MM ([id number]) - [id number] IMPLANTS SCREW,TRILOGY,HIP,6.5X40MM ([id number]) [employer] [id number] Right 1 Implanted SCREW,TRILOGY,HIP,6.5X20MM ([id number]) - [id number] IMPLANTS SCREW,TRILOGY,HIP,6.5X20MM ([id number]) [employer] [id number] Right 1 Implanted BONE,CRUSHED,CANCELLOUS,30CC ([id number]) (AUTOREQ) - [id number] IMPLANTS BONE,CRUSHED,CANCELLOUS,30CC([id number]) (AUTOREQ) [facility] [id number] Right 1 Implanted SCREW,TRILOGY,HIP,6.5X25MM ([id number]) - [id number] IMPLANTS SCREW,TRILOGY,HIP,6.5X25MM ([id number]) [employer] [id number] Right 1 Implanted documented in this encounter Plan of Treatment Upcoming Encounters Date Type Department Care Team (Late st Contact Info) Description 10/31/2023 9:15 AM EDT Office Visit Dermatology at [facility] [address] [place] [address] Dawson Broderick MD [facility] [place] [address] 07/23/2024 9:30 AM EDT Office Visit Dermatology at [facility] [address] [place] [address] Dawson Broderick MD [facility] [place] [address] Scheduled Referrals Name Type Priority Associated Diagnoses Order Schedule Referral for Anticoagulation Monitoring Outpatient Referral Routine 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 Hanna) Ordered: 12/02/2017 documented as of this encounter Procedures Procedure Name Priority Date/Time Associated Diagnosis Comments IMPLANTABLE DEVICES SCAN 12/05/2017 12:00 AM EDT ADOPTION SPECIALIST SCAN 12/05/2017 12:00 AM EDT PROTHROMBIN TIME Routine 12/02/2017 10:4 0 AM EDT BASIC METABOLIC PANEL (NON-FASTING) Routine 12/02/2017 10:40 AM EDT PROTHROMBIN TIME Routine 12/01/2017 6:10 PM EDT XR PELVIS Routine 12/01/2017 2:15 PM EDT CELL COUNT BODY FLUID STAT 12/01/2017 12:20 PM EDT MODIFIER G7 / DUAL MOBILITY HIP REVISION JUAN BIOMET 12/01/2017 11:13 AM EDT recurrent dislocation R hip MODIFIER S-ROM FEMORAL STEM DEPUY 12/01/2017 11:13 AM EDT recurrent dislocation R hip MODIFIER RECLAIM DEPUY 12/01/2017 11:13 AM EDT recurrent dislocation R hip @TOTAL HIP REVISION ARTHROPLASTY, COMPLETE (WRVU 30.28) 12/01/2017 11:13 AM EDT recurrent dislocation R hip TOTAL HIP REVISION ARTHROPLASTY, COMPLETE Routine 12/01/2017 7:42 AM EDT documented in this encounter Results * SCAN DOC: IMPLANTABLE DEVICES (12/05/2017 12:00 AM EDT) Narrative 12/05/2017 12:00 AM EDT Ordered by an unspecified provider. Scanning Provider MEDIA MGR SCAN EXT O RDR/RSLT * SCAN DOC: ADOPTION SPECIALIST (12/05/2017 12:00 AM EDT) Anatomical Region Laterality Modality Other Narrative 12/05/2017 12:00 AM EDT Ordered by an unspecified provider. Scanning Provider MEDIA MGR SCAN EXT O RDR/RSLT * Prothrombin Time (12/02/2017 10:40 AM EDT) PT 12.5 9.4 - 12.5 sec [facility] INR 1.1 [facility] Comment: An INR <2.0 indicates adequate procoagulant activity for hemostasis in most patients without underlying bleeding disorders, though the INR may not adequately reflect hemostatic capacity in patients with liver disease and synthetic impairment. The recommended target INR range for therapeutic anticoagulation is 2.0 ? 3.0 for most applications, though lower and higher ranges may be appropriate depending on clinical circumstances. Blood specimen (specimen) 12/02/2017 10:40 AM EDT 12/02/2017 10:54 AM EDT Narrative Resulting Agency Comment Spec In Lab Italo Hanna MD HEMATOLOGY ORDERABL ES [facility] [place] [address] * (ABNORMAL) Basic Metabolic Panel (non-fasting) (12/02/2017 10:40 AM EDT) Glucose Lvl 133 65 - 199 mg/dL [facility] Comment:Diabetes: >=200 mg/d L plus symptoms BUN 17 10 - 20 mg/dL [facility] Creatinine 1.22 0.80 - 1.50 mg/dL [facility] Sodium 139 135 - 145 mmol/L [facility] Potassium 4.5 3.5 - 5.0 mmol/L [facility] Comment: Please note: ??Patients with WBC >100,000 may have falsely elevated Potassium levels. ??For accurate Potassium quantification in these patients send serum separator tube (gold top) for subsequent determinations. ??Contact the Clinical Chemistry Laboratory if there are any questions. Chloride 103 98 - 107 mmol/L [facility] CO2 26 22 - 31 mmol/L [facility] Anion Gap 10 5 - 15 mmol/L [facility] Calcium 7.9(L) 8.5 - 10.5 mg/dL [facility] Estimated GFR 60 >=60 mL/min/1. 73 m?? [facility] Comment: The eGFR was calculated using the CKD-EPI equation. As with all creatinine based estimates of kidney function, eGFR values calculated with the CKD-EPI equation are not accurate in patients with acute kidney failure, extremes of body mass or the acutely ill. [email or web address] eGFR 69 >=60 mL/min/1. 73 m?? [facility] Comment: The eGFR was calculated using the CKD-EPI equation. As with all creatinine based estimates of kidney function, eGFR values calculated with the CKD-EPI equation are not accurate in patients with acute kidney failure, extremes of body mass or the acutely ill. [email or web address] Blood specimen (specimen) 12/02/2017 10:40 AM EDT 12/02/2017 10:54 AM EDT Narrative Resulting Agency Comment Spec In Lab Italo Hanna MD CHEMISTRY ORDERABLE S Performing Organization Address [facility] [place] [address] * Prothrombin Time (12/01/2017 6:10 PM EDT) PT 12.5 9.4 - 12.5 sec [facility] INR 1.1 [facility] Comment: An INR <2.0 indicates adequate procoagulant activity for hemostasis in most patients without underlying bleeding disorders, though the INR may not adequately reflect hemostatic capacity in patients with liver disease and synthetic impairment. The recommended target INR range for therapeutic anticoagulation is 2.0 ? 3.0 for most applications, though lower and higher ranges may be appropriate depending on clinical circumstances. Blood specimen (specimen) 12/01/2017 6:10 PM EDT 12/01/2017 6:56 PM EDT Narrative Resulting Agency Comment Spec In Lab Italo Hanna MD HEMATOLOGY ORDERABL ES Performing Organization Address [facility] Co de Phone Number [facility] [place] [address] * XR Pelvis (Generic) (12/01/2017 2:15 PM EDT) Anatomical Region Laterality Modality Pelvis N/A Digital Radiogra phy Impressions 12/01/2017 2:24 PM EDT No immediate post revision arthroplasty complication identified. Narrative 12/01/2017 2:24 PM EDT EXAMINATION: XR PELVIS (GENERIC) CLINICAL HISTORY: s/p revision R ELZBIETA TECHNIQUE: AP portable supine pelvis radiograph on 12/01/2017 at 1410 hours. COMPARISON: 07/25/2017 at 1124 hours. FINDINGS: Right hip revision arthroplasty hardware appears well-seated. No periprosthetic fracture or other immediate postoperative complication is identified. Surgical clips ejecting over the region of both hips, as before. Unchanged appearance of the bony pelvic ring in the left hip. Procedure Note Radha Pang MD - 12/01/2017 EXAMINATION: XR PELVIS (GENERIC) CLINICAL HISTORY: s/p revision R ELZBIETA TECHNIQUE: AP portable supine pelvis radiograph on 12/01/2017 at 1410hours. COMPARISON: 07/25/2017 at 1124 hours. FINDINGS: Right hip revision arthroplasty hardware appears well-seated.No periprosthetic fracture or other immediate postoperative complication is identified. Surgical clips ejecting over the region of both hips, asbefore. Unchanged appearance of the bony pelvic ring in the left hip. IMPRESSION No immediate post revision arthroplasty complication identified. Italo Hanna MD IMG DX ORDERABLES * Cell Count Body Fluid Hip, Right (12/01/2017 12:20 PM EDT) Spec Type BF Hip, Right [facility] Color BF Yellow [facility] Appearance BF Hazy [facility] WBC BF Ct 515 /mcl [facility] Comment: This result has been called to PANTERA JOYA by YAA on 12-01-2017 at 1303, and has been read back. Guideline listed below apply to all body fluids. Differentials on BAL specimens are performed by the Cytology lab section. When Body Fluid WBC count is greater than Zero, a smear is made and scanned. All scan information is correlated with numeric results prior to being released to patients chart. Polymorph % 39 % [facility] Comment: This result has been called to MARY MENDOSA by JULIA AGUILAR on 12-01-2017 at 1343, and has been read back. Polymorphonuclear cell percent and absolute values may contain Neutrophils, Eosinophils, and Basophils. Body fluid smear will be scanned manually for concordance. Mononuc % 61 % [facility] Comment: Mononuclear cell percent and absolute values may contain Lymphocytes and Monocytes. Body fluid smear will be scanned manually for concordance. Polymorph BF ABS 201 /[facility] Comment: Polymorphonuclear cell percent and absolute values may contain Neutrophils, Eosinophils, and Basophils. Body fluid smear will be scanned manually for concordance. Mononuc ABS 314 /[facility] Comment: Mononuclear cell percent and absolute values may contain Lymphocytes and Monocytes. Body fluid smear will be scanned manually for concordance. 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 Hanna) Morbid obesity with BMI of 40.0-44.9, adult Morbid obesity documented in this encounter Admitting Diagnoses Diagnosis Recurrent dislocation, right hip documented in this encounter Administered Medications Inactive Administered Medications - up to 3 most recent administrations Medication Order MAR Action Action Date Dose Rate Site acetaminophen (TYLENOL) tablet 1,000 mg 1,000 mg, Oral, ONCE, 1 dose, On Mon12/01/17 at 1000, Administer on arrival in Same Day Program, Day of Surgery (Day of Procedure), Routine Given 12/01/2017 9:53 AM EDT 1,000 mg acetaminophen (TYLENOL) tablet 1,000 mg 1,000 mg, Oral, EVERY 8 HOURS SCHEDULED, First dose on Mon12/01/17 at 1700, Until Discontinued, Maximum dose of acetaminophen is 4000 mg from all sources in 24 hours., Recovery (Recovery-Hospital Unit), Routine Given 12/02/2017 1:29 PM EDT 1,000 mg Given 12/02/2017 6:42 AM EDT 1,000 mg Given 12/01/2017 11:08 PM EDT 1,000 mg aspirin EC tablet 81 mg 81 mg, Oral, DAILY, First dose on 12/02/17 at 0900, Until Discontinued, Recovery (Recovery-Hospital Unit), Routine Given 12/02/2017 8:44 AM EDT 81 mg carvedilol (COREG) tablet 12.5 mg 12.5 mg, Oral, 2 TIMES DAILY WITH MEALS, First dose on Mon12/01/17 at 1700, Until Discontinued, Hold for SBP<100, HR<50, Recovery (Recovery-Hospital Unit), Routine Given 12/02/2017 8:44 AM ED T 12.5 mg Given 12/01/2017 5:04 PM EDT 12.5 mg ceFAZolin (ANCEF) 1g in dextrose 5% 50mL 1 g, Intravenous, EVERY 8 HOURS, 3 doses, First dose on Mon12/01/17 at 1430, Last dose on Mon12/02/17 at 0630, Administer over 30 Minutes, Recovery (Recovery-Hospital Unit), Indication for (Active or Suspected): Prophylaxis New Bag 12/02/2017 6:42 AM EDT 1 g 100 mL/hr New Bag 12/01/2017 11:08 PM EDT 1 g 100 mL/hr celecoxib (CeleBREX) capsule 400 mg 400 mg, Oral, ONCE, 1 dose, On Mon12/01/17 at 1000, Administer on arrival to Same Day Program, Day of Surgery (Day of Procedure), Routine Given 12/01/2017 9:54 AM EDT 400 mg gabapentin (NEURONTIN) capsule 300 mg 300 mg, Oral, ONCE, 1 dose, On Mon12/01/17 at 1000, Administer on arrival in Same Day Program, Day of Surgery (Day of Procedure), Routine Given 12/01/2017 9:54 AM EDT 300 mg gabapentin (NEURONTIN) capsule 300 mg 300 mg, Oral, NIGHTLY, First dose on 12/03/17 at 2100, Until Discontinued, Recovery (Recovery-Hospital Unit), Routine gabapentin (NEURONTIN) capsule 600 mg 600 mg, Oral, NIGHTLY, 2 doses, First dose on Mon12/01/17 at 2100, Last dose on 12/02/17 at 2100, Recovery (Recovery-Hospital Unit), Routine Given 12/01/2017 9:02 PM EDT 600 mg HYDROmorphone (DILAUDID) injection 0.2-0.4 mg 0.2-0.4 mg, Intravenous, EVERY 5 MIN PRN, Starting on Mon12/01/17 at 1323, Until Mon12/01/17 at 1614, Pain, Give 0.2 mg every 5 minutes PRN for mild to moderate pain (1-5) Give 0.4 mg every 5 minutes PRN for moderate to severe pain (6-10). Hold for respiratory rate less than 10 per minute. Maximum dose 4 mg over one hour. If multiple pain medications are ordered, start with hydromorphone or morphine and use fentanyl for breakthrough pain., PACU Recovery, Routine Given 12/01/2017 2:41 PM EDT 0.2 mg Given 12/01/2017 2:21 PM EDT 0.4 mg lactated Ringers infusion 1,000 mL 1,000 mL, at 100 mL/hr, Intravenous, CONTINUOUS, Starting on Mon12/01/17 at 1000, Until Mon12/01/17 at 1614, Day of Surgery (Day of Procedure) New Bag 12/01/2017 9:54 AM EDT 1,000 mLs 100 mL/hr ondansetron (ZOFRAN) injection 4 mg 4 mg, Intravenous, EVERY 8 HOURS PRN, Starting on Mon12/01/17 at 1636, Until 12/02/17 at 1813, Nausea, May repeat times one in 30 minutes if ineffective. If multiple antiemetics are ordered, use ondanstron first, Recovery (Recovery-Hospital Unit) ondansetron (ZOFRAN) tablet 4 mg 4 mg, Oral, EVERY 8 HOURS PRN, Starting on Mon12/01/17 at 1636, Until 12/02/17 at 1813, Nausea, Vomiting, If multiple antiemetics are ordered, use ondansetron first. PO Preferred. If patient unable to take PO, may give IV if ordered. May repeat times one in 45 minutes if ineffective., Recovery (Recovery-Hospital Unit), Routine pantoprazole (PROTONIX) tablet 20 mg 20 mg, Oral, DAILY, First dose on Mon12/01/17 at 1430, Until Discontinued, DO NOT CRUSH OR OPEN, Recovery (Recovery-Hospital Unit) Given 12/02/2017 8:44 AM EDT 20 mg Given 12/01/2017 3:40 PM EDT 20 mg polyethylene glycol (MIRALAX) packet 17 g 17 g, Oral, 2 TIMES DAILY, First dose on Mon12/01/17 at 2100, Until Discontinued, Recovery (Recovery-Hospital Unit), Routine Given 12/02/2017 8:43 AM EDT 17 g Given 12/01/2017 9:02 PM EDT 17 g senna-docusate (PERICOLACE) 8.6-50 mg per tablet 2 tablet 2 tablet, Oral, 2 TIMES DAILY, First dose on Mon12/01/17 at 2100, Until Discontinued, Recovery (Recovery-Hospital Unit), Routine Given 12/02/2017 8:45 AM EDT 2 tablets Given 12/01/2017 9:02 PM EDT 2 tablets sodium chloride 0.9 % flush 5 mL 5 mL, Intravenous, 2 TIMES DAILY, First dose on Mon12/01/17 at 2100, Until Discontinued, Recovery (Recovery[facility]Hospital Unit), Routine Given 12/02/2017 8:45 AM EDT 5 mLs Given 12/01/2017 9:06 PM EDT 5 mLs sodium chloride 0.9% infusion 1,000 mL, at 100 mL/hr, Intravenous, CONTINUOUS, Starting on Mon12/01/17 at 1430, Until 12/02/17 at 1813, Recovery ([facility] Unit) New Bag 12/01/2017 11:17 PM EDT 1,000 mLs 100 mL/hr New Bag 12/01/2017 2:13 PM EDT 1,000 mLs 100 mL/hr warfarin (COUMADIN) tablet 5 mg 5 mg, Oral, ONCE, 1 dose, On Mon12/01/17 at 1700, Recovery (Recovery[facility]ospital Unit), Routine Given 12/01/2017 5:05 PM EDT 5 mg warfarin (COUMADIN) tablet 5 mg 5 mg, Oral, ONCE, 1 dose, On 12/02/17 at 1700, Routine documented in this encounter Active and Recently Administered Medications Times are shown in EDT. Scheduled Medication Order 11/30/2017 12/01/2017 12/02/2017 acetaminophen (TYLENOL) tablet 1,000 mg (COMPLETED) 1,000 mg, Oral, ONCE, 1 dose, On Mon12/01/17 at 1000, Administer on arrival in Same Day Program, Day of Surgery (Day of Procedure), Routine 0953 (Given - Provider: Esteban Greenwood RN) acetaminophen (TYLENOL) tablet 1,000 mg 1,000 mg, Oral, EVERY 8 HOURS SCHEDULED, First dose on Mon12/01/17 at 1700, Until Discontinued, Maximum dose of acetaminophen is 4000 mg from all sources in 24 hours., Recovery ([facility] Unit), Routine 1704 (Given - Provider: Clementine Armstrong RN)2308 (Given - Provider: Mina Walton RN) 0642 (Given - Provider: Mina Walton RN)1329 (Given - Provider: Clementine Armstrong RN) aspirin EC tablet 81 mg 81 mg, Oral, DAILY, First dose on Mon12/02/17 at 0900, Until Discontinued, Recovery ([facility]), Routine 0844 (Given - Provid er: Clementine Armstrong RN) carvedilol (COREG) tablet 12.5 mg 12.5 mg, Oral, 2 TIMES DAILY WITH MEALS, First dose on Mon12/01/17 at 1700, Until Discontinued, Hold for SBP<100, HR<50, Recovery ([facility]), Routine 1704 (Given - Provider: Clementine Armstrong RN) 0844 (Given - Provider: Clementine Armstrong RN) ceFAZolin (ANCEF) 1g in dextrose 5% 50mL 1 g, Intravenous, EVERY 8 HOURS, 3 doses, First dose on Mon12/01/17 at 1430, Last dose on Mon12/02/17 at 0630, Administer over 30 Minutes, Recovery ([facility]), Indication for (Active or Suspected): Prophylaxis 1999 (Not Given - Provider: Mina Walton RN - Reason: See comment - Comment: duplicate order)2308 (New Bag - Provider: Mina Walton RN)2338 (Due: Stopped - Provider: Mina Walton RN) 0642 (New Bag - Provider: Mina Walton RN)0712 (Stopped - Provider: Clementine Armstrong RN) ceFAZolin (ANCEF) 2g in dextrose 5% 100 mL (COMPLETED) 2 g, Intravenous, EVERY 3 HOURS, 1 dose, First dose on Mon12/01/17 at 1000, Administer over 30 Minutes, Redose after 3 hours., Intra-Operative (Intra-Procedure), Indication for (Active or Suspected): Prophylaxis 120 (Given - Provider: Mary Birch CRNA) celecoxib (CeleBREX) capsule 400 mg (COMPLETED) 400 mg, Oral, ONCE, 1 dose, On Mon12/01/17 at 1000, Administer on arrival to Same Day Program, Day of Surgery (Day of Procedure), Routine 953 (Given - Provider: Esteban Greenwood RN) gabapentin (NEURONTIN) capsule 300 mg (COMPLETED) 300 mg, Oral, ONCE, 1 dose, On Mon12/01/17 at 1000, Administer on arrival in Same Day Program, Day of Surgery (Day of Procedure), Routine 953 (Given - Provider: Esteban Greenwood RN) gabapentin (NEURONTIN) capsule 300 mg(Linked Group 1) 300 mg, Oral, NIGHTLY, First dose on Mon12/03/17 at 2100, Until Discontinued, Recovery ([facility] Unit), Routine gabapentin (NEURONTIN) capsule 600 mg(Linked Group 1) 600 mg, Oral, NIGHTLY, 2 doses, First dose on Mon12/01/17 at 2100, Last dose on Mon12/02/17 at 2100, Recovery ([facility]), Routine 2101 (Given - Provider: Mina Walton RN) pantoprazole (PROTONIX) tablet 20 mg 20 mg, Oral, DAILY, First dose on Mon12/01/17 at 1430, Until Discontinued, DO NOT CRUSH OR OPEN, Recovery ([facility] Unit) 1540 (Given - Provider: Irais Larson RN) 0844 (Given - Provider: Clementine Armstrong RN) polyethylene glycol (MIRALAX) packet 17 g 17 g, Oral, 2 TIMES DAILY, First dose on Mon12/01/17 at 2100, Until Discontinued, Recovery ([facility]), Routine 2101 (Given - Provider: Mina Walton RN) 0843 (Given - Provider: Clementine Armstrong RN) senna-docusate (PERICOLACE) 8.6-50 mg per tablet 2 tablet 2 tablet, Oral, 2 TIMES DAILY, First dose on Mon12/01/17 at 2100, Until Discontinued, Recovery ([facility]), Routine 2101 (Given - Provider: Mina Walton RN) 0845 (Given - Provider: Clementine Armstrong RN) sodium chloride 0.9 % flush 5 mL 5 mL, Intravenous, 2 TIMES DAILY, First dose on Mon12/01/17 at 2100, Until Discontinued, Recovery ([facility]), Routine 2105 (Given - Provider: Mina Walton RN) 0845 (Given - Provider: Clementine Armstrong RN) warfarin (COUMADIN) daily order reminder Oral, EVERY 24 HOURS, First dose on 12/02/17 at 1400, Until Discontinued, If the daily warfarin order has not been placed, contact the Provider to confirm that the order will be written, the dose is held or discontinued., Recovery ([facility] Unit) 1400 (Dose confirmed - Provider: Clementine Armstrong RN) warfarin (COUMADIN) tablet 5 mg (COMPLETED) 5 mg, Oral, ONCE, 1 dose, On Mon12/01/17 at 1700, Recovery ([facility]), Routine 1705 (Given - Provider: Clementine Armstrong RN) warfarin (COUMADIN) tablet 5 mg 5 mg, Oral, ONCE, 1 dose, On 12/02/17 at 1700, Routine Continuous Medication Order 11/30/2017 12/01/2017 12/02/2017 lactated Ringers infusion 1,000 mL (CANCELED) 1,000 mL, at 100 mL/hr, Intravenous, CONTINUOUS, Starting on Mon12/01/17 at 1000, Until Mon12/01/17 at 1614, Day of Surgery (Day of Procedure) 0954 (New Bag - Provider: Esteban Greenwood RN) sodium chloride 0.9% infusion 1,000 mL, at 100 mL/hr, Intravenous, CONTINUOUS, Starting on Mon12/01/17 at 1430, Until 12/02/17 at 1813, Recovery ([facility] Unit) 1413 (New Bag - Provider: Irais Larson RN)2317 (New Bag - Provider: Mina Walton RN) PRN Medication Order 11/30/2017 12/01/2017 12/02/2017 bacitracin injection (CANCELED) ONCE PRN, Starting on Mon12/01/17 at 1229, Until 12/02/17 at 1813, Intra-Operative (Intra-Procedure), Routine 1229 (Given - Provider: Rojelio Hanna MD - Comment: Mixed into 3L normal saline.) bisacodyl (DULCOLAX) EC tablet 10 mg 10 mg, Oral, 2 TIMES DAILY PRN, Starting on Mon12/01/17 at 1636, Until 12/02/17 at 1813, Constipation, DO NOT CRUSH OR OPEN Administer if needed per patient's routine or if no bowel movement within 48 hours to achieve: (1) One bowel movement every 48 hours, AND (2) without straining. If multiple PRN bowel medications ordered, start with lactulose, then oral bisacodyl, then bisacodyl suppository. Multiple medications may be given concomitantly for constipation., Recovery ([facility] Unit), Routine bisacodyl (DULCOLAX) suppository 10 mg 10 mg, Rectal, DAILY PRN, Starting on Mon12/01/17 at 1636, Until 12/02/17 at 1813, Constipation, Administer if needed per patient's routine or if no bowel movement within 48 hours to achieve: (1) One bowel movement every 48 hours, AND (2) without straining. If multiple PRN bowel medications ordered, start with lactulose, then oral bisacodyl, then bisacodyl suppository. Multiple medications may be given concomitantly for constipation., Recovery ([facility]), Routine BUpivacaine (PF) (MARCAINE) 0.25 % (2.5 mg/mL) injection (CANCELED) ONCE PRN, Starting on Mon12/01/17 at 1211, Until 12/02/17 at 1813, Intra-Operative (Intra-Procedure), Routine 1211 (Given - Provider: Rojelio Hanna MD - Comment: At skin incision.)1253 (Given - Provider: Italo Hanna MD - Comment: Mixture contains 50ml 0.25% sensorcaine, 1ml (30mg/ml) toradol, and 0.5ml (100mcg/ml) clonidine. Total mixture used.) celecoxib (CeleBREX) capsule 200 mg 200 mg, Oral, 2 TIMES DAILY PRN, Starting on Mon12/01/17 at 1636, Until 12/02/17 at 1813, Pain, Recovery ([facility] Unit), Routine cloNIDine injection (CANCELED) ONCE PRN, Starting on Mon12/01/17 at 1253, Until 12/02/17 at 1813, Intra-Operative (Intra-Procedure), Routine 1253 (Given - Provider: Rojelio Hanna MD - Comment: Mixture contains 50ml 0.25% sensorcaine, 1ml (30mg/ml) toradol, and 0.5ml (100mcg/ml) clonidine. Total mixture used.) HYDROmorphone (DILAUDID) injection 0.2-0.4 mg (CANCELED) 0.2-0.4 mg, Intravenous, EVERY 5 MIN PRN, Starting on Mon12/01/17 at 1323, Until Mon12/01/17 at 1614, Pain, Give 0.2 mg every 5 minutes PRN for mild to moderate pain (1-5) Give 0.4 mg every 5 minutes PRN for moderate to severe pain (6-10). Hold for respiratory rate less than 10 per minute. Maximum dose 4 mg over one hour. If multiple pain medications are ordered, start with hydromorphone or morphine and use fentanyl for breakthrough pain., PACU Recovery, Routine 1421 (Given - Provider: Irais Larson RN)1441 (Given - Provider: Irais Larson RN) ketorolac (TORADOL) injection 15 mg 15 mg, Intravenous, EVERY 6 HOURS PRN, Starting on Mon12/01/17 at 1636, Until 12/02/17 at 1813, Pain, Recovery ([facility] Unit), Routine ketorolac (TORADOL) injection (CANCELED) ONCE PRN, Starting on Mon12/01/17 at 1253, Until 12/02/17 at 1813, Intra-Operative (Intra-Procedure), Routine 1253 (Given - Provider: Rojelio Hanna MD - Comment: Mixture contains 50ml 0.25% sensorcaine, 1ml (30mg/ml) toradol, and 0.5ml (100mcg/ml) clonidine. Total mixture used.) lactulose (CHRONULAC) 20 gram/30 mL oral solution 20-40 g 20-40 g (30-60 mL), Oral, DAILY PRN, Starting on Mon12/01/17 at 1636, Until 12/02/17 at 1813, Constipation, Administer if needed per patient's routine or if no bowel movement within 48 hours to achieve: (1) One bowel movement every 48 hours, AND (2) without straining. If multiple PRN bowel medications ordered, start with lactulose, then oral bisacodyl, then bisacodyl suppository. Multiple medications may be given concomitantly for constipation., Recovery ([facility]), Routine lidocaine (XYLOCAINE) 10 mg/mL (1 %) injection 3 mg (COMPLETED) 3 mg (0.3 mL), Subcutaneous, ONCE PRN, 1 dose, Starting on Mon12/01/17 at 0932, Until Mon12/01/17 at 1147, for discomfort with PIV insertion, Day of Surgery (Day of Procedure), Routine 1147 (Given - Provider: Stephany Warren MD) lidocaine (XYLOCAINE) 10 mg/mL (1 %) injection 3 mg 3 mg (0.3 mL), Subcutaneous, ONCE PRN, 1 dose, Starting on Mon12/01/17 at 1636, Until 12/02/17 at 1813, for discomfort with PIV insertion, Recovery ([facility]), Routine ondansetron (ZOFRAN) injection 4 mg(Linked Group 2) 4 mg, Intravenous, EVERY 8 HOURS PRN, Starting on Mon12/01/17 at 1636, Until 12/02/17 at 1813, Nausea, May repeat times one in 30 minutes if ineffective. If multiple antiemetics are ordered, use ondanstron first, Recovery ([facility]) ondansetron (ZOFRAN) tablet 4 mg(Linked Group 2) 4 mg, Oral, EVERY 8 HOURS PRN, Starting on Mon12/01/17 at 1636, Until 12/02/17 at 1813, Nausea, Vomiting, If multiple antiemetics are ordered, use ondansetron first. PO Preferred. If patient unable to take PO, may give IV if ordered. May repeat times one in 45 minutes if ineffective., Recovery ([facility]), Routine oxyCODONE (ROXICODONE) immediate release tablet 5-15 mg 5-15 mg, Oral, EVERY 4 HOURS PRN, Starting on Mon12/01/17 at 1406, Until 12/02/17 at 1813, Pain, Give 5 mg for mild pain (1-3), 10 mg for moderate pain (4-6) or 15 mg for severe pain (7-10) May give an additional 5 mg in 30 minutes ONCE if pain not relieved., Recovery ([facility]), Routine povidone-iodine 5 % ophthalmic solution (CANCELED) ONCE PRN, Starting on Mon12/01/17 at 1234, Until 12/02/17 at 1813, Intra-Operative (Intra-Procedure), Routine 1234 (Given - Provider: Rojelio Hanna MD - Comment: Mixed in 500ml saline on field.) sodium chloride 0.9 % flush 5-20 mL 5-20 mL, Intravenous, EVERY 1 MIN PRN, Starting on Mon12/01/17 at 1636, Until 12/02/17 at 1813, flush, Flush pertains to all indwelling lines. Flush per protocol found in the job aid using the link provided on this medication record., Recovery ([facility]), Routine Linked Groups Order Group 1: gabapentin (NEURONTIN) capsule 600 mgJump to med 600 mg, Oral, NIGHTLY, 2 doses, First dose on Mon12/01/17 at 2100, Last dose on 9/1/18 at 2100, Recovery ([facility]), Routine Followed by gabapentin (NEURONTIN) capsule 300 mgJump to med 300 mg, Oral, NIGHTLY, First dose on 12/03/17 at 2100, Until Discontinued, Recovery ([facility]), Routine Group 2: ondansetron (ZOFRAN) tablet 4 mgJump to med 4 mg, Oral, EVERY 8 HOURS PRN, Starting on Mon12/01/17 at 1636, Until 12/02/17 at 1813, Nausea, Vomiting, If multiple antiemetics are ordered, use ondansetron first. PO Preferred. If patient unable to take PO, may give IV if ordered. May repeat times one in 45 minutes if ineffective., Recovery ([facility]), Routine Or ondansetron (ZOFRAN) injection 4 mgJump to med 4 mg, Intravenous, EVERY 8 HOURS PRN, Starting on 12/01/17 at 1636, Until 12/02/17 at 1813, Nausea, May repeat times one in 30 minutes if ineffective. If multiple antiemetics are ordered, use ondanstron first, Recovery ([facility] Unit) documented in this encounter Care Teams Mortgage Assistant Relationship Specialty Start Date End Date Phoenix Guzmán DO [address] [place] [address] [place] [id number] PCP - General General Internal Medicine 02/20/15 documented as of this encounter
--- OUTSIDE RECORDS SUMMARY | 2023-10-23 09:05 | XMS_ITS | Encounter Summary ---
[facility] [place] [address] Care Team Providers Care Clarification Operator Name Role Phone Phoenix Guzmán DO Primary Care Provider [phone] Reason for Visit * Reason Comments Skin Check Encounter Details Date Type Department Care Team (Late st Contact Info) Description 01/10/2019 9:30 AM EDT Office Visit Dermatology at [facility] [address] [place] [address] Dawson Broderick MD [facility] [address] [place] [address] History of melanoma; Multiple benign nevi; Seborrheic keratoses; Seborrheic keratosis, inflamed Social History Tobacco Use [...] Progress Notes * Dawson Broderick MD - 01/10/2019 9:30 AM EDT Gunnar Morin 01/10/2019 [id number] Kandy Broderick MD ([id number]) Chief Problem: 1. Pigmented Lesion and Skin Cancer Examination , Full examination today 2. 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 History: 73 y.o. year old male. Established patient to me. No significant changes in health or medications since last visit. Patient presents to the clinic today for a full skin cancer examination with history as listed above. Specific areas of concern today include a lesion under his chin that he nicks with his razor. With . Doing well. Will remove/freeze the lesion/sk on neck, below chin. Medications: reviewed All: reviewed Review of Systems: Feels well, no fatigue, no weight loss, no other skin concerns Current Outpatient Medications on File Prior to Visit Medication Sig Dispense Refill ??? tacrolimus (PROTOPIC) 0.03 % Ointment Apply nightly to affected areas on face 30 g 0 ??? acetaminophen (TYLENOL) 500 [...] located on the trunk and extremities 4. Inflamed seborrheic keratosis x 1 located on the anterior neck Assessment/Diagnosis: 1. History of melanoma, 1.76mm 2. Benign appearing nevi, patient reassured 3. Seborrheic keratoses, patient reassured 4. Inflamed seborrheic keratosis, treated with cryotherapy today Procedure: 1. LN2 x 2 to Inflamed Seborrheic Keratosis x 1 Treatment/Plan: Discussion - Spent over half of this visit discussing pathophysiology and the diagnosis, and counselling this patient on treatment options, expectations and follow-up plan. - Specifically discussed: 1. Sun avoidance re-emphasized, sunscreen, hats, clothing as always. 2. Combined decision was made to treat Inflamed seborrheic keratosis x 1 with cryotherapy. Follow up: 6 months for skin cancer exam, sooner if needed. I am documenting this encounter acting as the scribe for and in the presence of Melinda Ziegler LPN and Cait Brandon. I performed the above scribed service and agree with the accuracy of the documentation in this encounter, MD Kandy Carmona M.D. Section of Dermatology documented in this encounter Plan of Treatment Upcoming Encounters Date Type Department Care Team (Late st Contact Info) Description 10/31/2023 9:15 AM EDT Office Visit Dermatology at [facility] [address] [place] [address] Dawson Broderick MD [facility] [address] [place] [address] 07/23/2024 9:30 AM EDT Office Visit Dermatology at [facility] [address] [place] [address] Dawson Broderick MD [facility] [place] [address] documented as of this encounter Visit Diagnoses Diagnosis History of melanoma Personal history of malignant melanoma of skin Multiple benign nevi Benign neoplasm of skin, site unspecified Seborrheic keratoses Other seborrheic keratosis Seborrheic keratosis, inflamed Inflamed seborrheic keratosis documented in this encounter Care Teams Clarification Operator Relationship Specialty Start Date End Date Phoenix Guzmán DO [address] [place] [address] [place] [address] PCP - General General Internal Medicine 02/20/15 documented as of this encounter
--- OUTSIDE RECORDS SUMMARY | 2023-10-23 09:05 | XMS_ITS | Encounter Summary ---
[place] [address] Care Team Providers Care Recreation Director Name Role Phone Phoenix Guzmán DO Primary Care Provider [phone] Encounter Details Date Type Department Care Team (Latest Contact Info) Description 12/21/2017 Anti-Coag [place]phone [place] [address] Magaly العراقي, RN Recurrent dislocation, right hip Social History Tobacco Use Types Packs/Day Years [...] as of this encounter Progress Notes * Magaly العراقي, RN - 12/21/2017 2:47 PM EDT Anticoagulation Therapy Nurse Visit Gunnar Morin 1945 Surgeon: Jacques [facility]: [phone] Indication: DVT Prophylaxis S/P Joint Replacement Duration of Treatment: 30 days ends: After dose on 12/31/17 Therapeutic Range: 1.7-2.2 INR: 1.5 Drawn by: [facility] ?? PHONE: [phone] ??FAX: [phone] Coumadin dosing was given, accurately repeated and understood by the patient. Next INR: 12/25/17 Patient presents with no signs of bleeding or bruising or signs of thromboembolic events related toprimary diagnosis above. Follow-up for re- evaluation and safety of continuing anticoagulation. Patient knows to seek emergency care if uncontrolled bleeding occurs. Bleeding: Epistaxis Black tarry stools Gingival bleeding Increased bruising Hematuria Other: Hemoptysis x No bleeding / bruising noted Comments: Symptoms of recurring primary event: Chest pain Dyspnea Palpitations Headache Dizziness Edema Confusion Slurred speech Weakness Visual changes Tender/Red/Swollen extremities x No symptoms reported Other: Comments: Recent Medication Changes: no Comments: Have you missed any dose of Coumadin this past week? No Comments: Dietary Changes: No Comments: documented in this encounter Plan of Treatment Upcoming Encounters Date Type Department Care Team (Late st Contact Info) Description 10/31/2023 9:15 AM EDT Office Visit Dermatology at [facility] [address] [place] [address] Dawson Broderick MD [facility] [place] [address] 07/23/2024 9:30 AM EDT Office Visit Dermatology at [facility] [address] [place] [address] Dawson Broderick MD [facility] [place] [address] documented as of this encounter Procedures Procedure Name Priority Date/Time Associated Diagnosis Comments EXTERNAL LAB HEMATOLOGY/COAG RESULTS PANEL Routine 12/21/2017 documented in this encounter Results * (ABNORMAL) Hematology / Coag External Results (12/21/2017) POC INR 1.5(A) 0.9 - 1.1 12/21/2017 Historical Provider HEMATOLOGY ORDERA BLES documented in this encounter Visit Diagnoses Diagnosis Recurrent dislocation, right hip documented in this encounter Care Teams Recreation Director Relationship Specialty Start Date End Date Phoenix Guzmán DO [address] [place] [address] [place] [id number] PCP - General General Internal Medicine 02/20/15 documented as of this encounter
--- OUTSIDE RECORDS SUMMARY | 2023-10-23 09:05 | XMS_ITS | Encounter Summary ---
Author Organization [facility] [place] [address] Care Team Providers Care Residence Director Name Role Phone DevantePhoenix orozco Susan MCDOWELL Primary Care Provider [phone] Reason for Visit * Auth/Cert Specialty Diagnoses / Procedures Referred By Omid shepherd Referred To Contact Diagnoses Recurrent dislocation, right hip recurrent dislocation R hip RECURRENT DISLOCATION,RIGHT HIP Procedures PRO REVISE TOTAL HIP REPLACEMENT @TOTAL HIP REVISION ARTHROPLASTY, COMPLETE (WRVU 30.28) Referral ID Status Reason Start Date Expiration Date Visits Re quested Visits Authorized [id number] 1 1 Encounter Details Date Type Department Care Team (Late st Contact Info) Description 12/01/2017 11:12 AM EDT Anesthesia Event [place] [address] Lg Wraren MD [facility] [place] [address] Anesthesia Record Procedure Summary Procedure Name Responsible Anesthesiologist Anesthesia Start Time Anesthesia Stop Time @TOTAL HIP REVISION ARTHROPLASTY, COMPLETE (WRVU 30.28) (Right: Hip) Lg Warren MD 12/01/17 1112 12/01/17 1356 Events Date Time Event Comment 12/01/2017 0958 1112 Start 1118 AN Verify 1118 An Start Data 1147 An Induction 1149 An Intubation 1150 Anesthesia Ready 1211 Procedure Start 1348 Extubation/LMA Out 1351 an stop data 1355 Recovery or ICU Handoff Charlene ent care was transferred to the destination unit staff after review of the patient's medical history, current anesthetic/surgical status and plan, according to the Provider Handoff Checklist. 1356 Stop Meds Name Total Midazolam 4 mg fentaNYL 100 mcg Propofol 220 mg Rocuronium 50 mg PHENYLephrine 960 mcg Ondansetron 4 mg Neostigmine 4 mg Glycopyrrolate 1 mg ceFAZolin (ANCEF) 2g in dextrose 5% 100 mL 2 g Propofol INF 413.44 mg Dexmedetomidine 20 mcg Tranexamic Acid 2,030 mg lidocaine (XYLOCAINE) 10 mg/mL (1 %) inj ection 3 mg 100 mL PHENYLephrine INF 6,020 mcg Lactated Ringers 2,000 mL * Agents Name O2 Air N2O Sevoflurane (et) O2 Auxiliary Flowmeter 1 * Blood No blood administrations on file. [...] Gamez RN 11/29/21 1715 by Marion Vásquez (RETIRED) Peripheral IV Line - Single Lumen 12/01/17; 0948; median cubital vein (antecubital fossa), left; [id number] catheter system; 18 gauge, 1 in length; Kandy Greenwood RN; distraction, intradermal injection, tolerated well, appears comfortable; removed per physician; 12/02/17; 1453 12/01/17 0948 by Esteban Greenwood RN 12/02/17 1453 by Arlene Garcia, PAUL Urethral Catheter 12/01/17; 1140; Surg payam longer than 2 hours, Need for intraoperative urine output monitoring, Physician order; Physician order; indwelling double lumen catheter; latex; 14; inserted at this facility; 1; 5; 10; none; drainage bag to dependent drainage; 12/02/17; 0649 12/01/17 1140 by Valerie Terry RN 12/02/17 0649 by Claritza Abebe RN ETT Mask Ventilation: Ea sy (1); ETT Type: Cuffed; ETT Size: 7.5 mm; Mac Blade: 4; Notes: Asleep, Pre-O2, Troop Elev.; Attempts: 1; Laryngoscopy Grade: 1; ETT Placement Verified By: Auscultation, Capnometry; Secured at Teeth: 24 cm; Inserted by: ; Removal Date: 12/01/17; Removal Time: 1351 12/01/17 1211 by Lg Warren MD 12/01/17 1351 by Dionna Birch, POLICY CANCELLATION CLERK Incision 12/01/17; 1211; hip; 11/29/21 (LDA cleanup utility RA#[id number]); 1715 (LDA cleanup utility RA#[id number]) 12/01/17 1211 by Valerie Terry RN 11/29/21 1715 by Marion Vásquez documented [...] Notes * Anesthesia Postprocedure Evaluation - Lg Warren MD - 12/01/2017 2:18 PM EDT [facility] Department of Anesthesiology Post-procedure Note Patient: Gunnar Morin Procedure Summary Date Anesthesia Start Anesthesia Stop Room / Location 12/01/[address] [facility] OR 12 / [facility] MAIN OR Procedure Diagnosis Surgeon Responsible Provider @TOTAL HIP REVISION ARTHROPLASTY, COMPLETE (WRVU 30.28) (Right Hip); MODIFIER RECLAIM DEPUY (Right Hip); MODIFIER S-ROM FEMORAL STEM DEPUY (N/A Hip); MODIFIER G7 / DUAL MOBILITY HIP REVISION JUAN BIOMET (Right ) (recurrent dislocation R hip) Italo Hanna MD Spence, Brian C, MD All Anesthesia Providers: Anesthesiologist: Lg Warren MD POLICY CANCELLATION CLERK: Dionna Birch CRNA Most Recent Vitals: 12/01/17 1400 BP: 125/65 Pulse: 64 Resp: 10 Temp: SpO2: 99% Pain 2 (12/01/17 1354) [facility] Level of Consciousness: Awake and Alert Pain Management: Pain Being Addressed PONV: None Cardiovascular Status: At Baseline Respiratory Status: At Baseline Postoperative Fluid Status: Intravascular EUvolemia Possible Anesthetic Complications: NONE apparent at time of evaluation Final Primary Anesthesia Type: General (The anesthetic type performed was the same as planned.) Comments: You did a good job. Questions elicited and answered * Anesthesia Preprocedure Evaluation - Lg Warren MD - 12/01/2017 9:56 AM EDT Pre-Anesthesia Evaluation for: Gunnar Morin a 72 y.o. male. Procedure(s): @TOTAL HIP REVISION ARTHROPLASTY, COMPLETE (WRVU 30.28) MODIFIER S-ROM FEMORAL STEM DEPUY Patient Active Problem List Diagnosis ??? Recurrent dislocation, right hip ??? sp R TKA on 09/21/16 Butch ??? Status post total knee replacement ??? Monitoring for anticoagulant use ??? Status post total replacement of right hip ??? 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 H/O total hip arthroplasty ??? Obesity, Class II, BMI 35-39.9 BMI 38 ??? 09/07/2015 S/P Left total knee arthroplasty (Dr. Rae) ??? DJD (degenerative joint disease) of knee ??? CAD (coronary artery disease) ??? Arthritis of knee ??? s/p revision R ELZBIETA with head-liner exchange 06/29/16 (Dr. Rae) with dislocation(12/2016) ??? Osteoarthritis of both knees ??? Bilateral knee pain Past Medical History: Diagnosis Date ??? Cancer melanoma penis-pt. here at [facility] ??? Heart valve disease told he has [...] 3.79) performed by Carina Patton MD at [facility] OSC ??? PRO INTRAOP SENTINEL LYMPH ID W/DYE INJECTION Midline 01/19/2017 INTRAOPERATIVE ID (MAPPING) SENTINEL LYMPH NODE,INCLUDES INJECTION (WRVU 2.5) performed by Carina Patton MD at [facility] ??? PRO REVISE TOTAL HIP REPLACEMENT Right 06/29/2016 @TOTAL HIP REVISION ARTHROPLASTY, COMPLETE (WRVU 30.28) performed by Walter Rae MD at [facility] MAIN OR ??? PRO TOTAL KNEE ARTHROPLASTY Left 09/07/2015 @TOTAL KNEE ARTHROPLASTY performed by Walter Rae MD at [facility] MAIN OR ??? PRO TOTAL KNEE ARTHROPLASTY Right 09/21/2016 @TOTAL KNEE ARTHROPLASTY (WRVU 20.72) performed by Walter Rae MD at [facility] MAIN OR Social History Substance Use Topics ??? Smoking status: Former Smoker Quit date: 01/11/2001 ??? Smokeless tobacco: Never Used ??? Alcohol use Yes 1 Cans of beer per week Comment: occasional History Drug Use No Allergies Allergen Reactions ??? Amoxicillin Trihydrate Hives Medications: MAR and/or home medications have been reviewed. Physical Exam: Most Recent Vitals: 12/01/17 0932 BP: 143/84 Pulse: 69 Resp: 18 Temp: 36.2 ??C (97.2 ??F) SpO2: 97% Body mass index is 40.01 kg/(m^2). Height: 182.9 cm (6') Weight: 133.8 kg (295 lb) Airway Assessment: Mallampati: II TM distance: >3 FB Neck ROM: full Cardiovascular Assessment: cardiovascular exam normal Pulmonary Assessment: pulmonary exam normal Dental Assessment: - normal exam Misc Assessment: Patient is wearing No contact(s). IV access: Peripheral line Anesthesia Plan: ASA 3 general and regional, with a(n) intravenous induction Gunnar Morin is a 71 y/o M scheduled for RIGHT ELZBIETA revision His PMH is significant for CAD (discovered on pre-op eval >1yr ago, now s/p BMS x2 to LAD, only on baby ASA off plavix), HTN on carvedilol - stable dose, last dose was this am. Denies YESICA (but does snore per ), reports good functional tolerance (able to ambulate 2 FOS without problems). Appropriately NPO. Multiple spinals in the past. Intubated for last TKA, unable to get spinal- grade 2 view with MAC 4blade - 2 attempts. Had lip trauma with intubation, some sore throat. Plan for a SAB with marking for placement using U/S and GA as back-up Region - Other Informed Consent: Anesthetic plan and risks discussed with patient and spouse. Use of blood products discussed with patient who consented to blood products. Plan discussed with POLICY CANCELLATION CLERK. PAT Staff Note documented in this encounter Miscellaneous Notes * Addendum Note - Dionna Birch CRNA - 12/01/2017 3:20 PM EDT Addendum created 12/01/17 1520 by Dionna Birch CRNA Anesthesia Intra Flowsheets edited, Anesthesia Intra Meds edited documented in this encounter Plan of Treatment Upcoming Encounters Date Type Department Care Team (Late st Contact Info) Description 10/31/2023 9:15 AM EDT Office Visit Dermatology at [facility] [address] [place] [address] Dawson Broderick MD [facility] [address] [place] [address] 07/23/2024 9:30 AM EDT Office Visit Dermatology at [facility] [address] [place] [id number] Dawson Broderick MD [facility] [place] [address] documented as of this encounter Visit Diagnoses Not on filedocumented in this encounter Administered Medications Inactive Administered Medications - up to 3 most recent administrations Medication Order MAR Action Action Date Dose Rate Site ceFAZolin (ANCEF) 2g in dextrose 5% 100 mL 2 g, Intravenous, EVERY 3 HOURS, 1 dose, First dose on Mon12/01/17 at 1000, Administer over 30 Minutes, Redose after 3 hours., Intra-Operative (Intra-Procedure), Indication for (Active or Suspected): Prophylaxis Given 12/01/2017 12:06 PM EDT 2 g dexmedetomidine (PRECEDEX) injection PRN, Starting on Mon12/01/17 at 1112, Until Mon12/01/17 at 1419, Anesthesia Intra-op, Routine Given 12/01/2017 11:25 AM EDT 4 mcg Given 12/01/2017 11:21 AM EDT 4 mcg Given 12/01/2017 11:18 AM EDT 4 mcg fentaNYL 50 mcg/mL multi-dose injection PRN, Starting on Mon12/01/17 at 1208, Until Mon12/01/17 at 1419, Pain, Anesthesia Intra-op, Routine Given 12/01/2017 12:08 PM EDT 100 mcg glycopyrrolate (ROBINUL) multi-dose injection PRN, Starting on Mon12/01/17 at 1327, Until Mon12/01/17 at 1419, Anesthesia Intra-op, Routine Given 12/01/2017 1:36 PM EDT 0.4 mg Given 12/01/2017 1:27 PM EDT 0.6 mg lactated Ringers infusion CONTINUOUS PRN, Starting on Mon12/01/17 at 1112, Until Mon12/01/17 at 1419, Anesthesia Intra-op New Bag 12/01/2017 1:37 PM E DT New Bag 12/01/2017 1:06 PM EDT New Bag 12/01/2017 11:12 AM EDT lidocaine (XYLOCAINE) 10 mg/mL (1 %) injection 3 mg 3 mg (0.3 mL), Subcutaneous, ONCE PRN, 1 dose, Starting on Mon12/01/17 at 0932, Until Mon12/01/17 at 1147, for discomfort with PIV insertion, Day of Surgery (Day of Procedure), Routine Given 12/01/2017 11:47 AM EDT 100 mLs midazolam (PF) (VERSED) 1 mg/mL multi-dose injection PRN, Starting on Mon12/01/17 at 1147, Until Mon12/01/17 at 1419, Sleep, Anesthesia Intra-op, Routine Given 12/01/2017 11:47 AM EDT 1 mg Given 12/01/2017 11:40 AM EDT 0.5 mg Given 12/01/2017 11:37 AM EDT 0.5 mg neostigmine (BLOXIVERZ) injection PRN, Starting on Mon12/01/17 at 1327, Until Mon12/01/17 at 1419, Anesthesia Intra-op, Routine Given 12/01/2017 1:36 PM EDT 1 mg Given 12/01/2017 1:27 PM EDT 3 mg ondansetron (ZOFRAN) injection PRN, Starting on Mon12/01/17 at 1340, Until Mon12/01/17 at 1520, Nausea, Anesthesia Intra-op, Routine Given 12/01/2017 1:40 PM EDT 4 mg PHENYLephrine (FIOR-SYNEPHRINE) 20 mg in sodium chloride 250 mL (standard ADULT & Pedi greater than 20kg) infusion CONTINUOUS PRN, Starting on Mon12/01/17 at 1200, Until Mon12/01/17 at 1419, Anesthesia Intra-op, Routine Rate/Dose Change 12/01/2017 1:30 PM EDT 40 mcg/min 30 mL/hr Rate/Dose Change 12/01/2017 1:21 PM EDT 60 mcg/min 45 mL/h r Rate/Dose Change 12/01/2017 12:45 PM EDT 80 mcg/min 60 mL/ hr PHENYLephrine in NS (PF) (FIOR-SYNEPHRINE) 0.8 mg/10 mL (80 mcg/mL) multi-dose injection Syrg PRN, Starting on Mon12/01/17 at 1212, Until Mon12/01/17 at 1419, Anesthesia Intra-op, Routine Given 12/01/2017 12:48 PM EDT 80 mcg Given 12/01/2017 12:38 PM EDT 80 mcg Given 12/01/2017 12:23 PM EDT 240 mcg propofol (DIPRIVAN) 10 mg/mL bolus injection (Anesthesia) PRN, Starting on Mon12/01/17 at 1147, Until Mon12/01/17 at 1419, Anesthesia Intra-op Given 12/01/2017 1:39 PM EDT 20 mg Given 12/01/2017 11:47 AM EDT 200 mg propofol (DIPRIVAN) infusion CONTINUOUS PRN, Starting on Mon12/01/17 at 1200, Until Mon12/01/17 at 1419, Anesthesia Intra-op, Routine Rate/Dose Change 12/01/2017 12:06 PM EDT 30 mcg/kg/min 24.1 mL/hr New Bag 12/01/2017 11:48 AM EDT 50 mcg/kg/min 40.1 mL/h r rocuronium (ZEMURON) multi-dose injection PRN, Starting on Mon12/01/17 at 1148, Until Mon12/01/17 at 1419, Anesthesia Intra-op, Routine Given 12/01/2017 11:48 AM EDT 50 mg tranexamic acid (CYKLOKAPRON) 100 mg/mL bolus injection (Anesthesia) PRN, Starting on Mon12/01/17 at 1150, Until Mon12/01/17 at 1419, Anesthesia Intra-op, Routine Given 12/01/2017 11:50 AM EDT 2,030 mg documented in this encounter Care Teams Residence Director Relationship Specialty Start Date End Date Phoenix Guzmán DO [address] [place] [address] [place] [id number] PCP - General General Internal Medicine 02/20/15 documented as of this encounter
--- OUTSIDE RECORDS SUMMARY | 2023-10-23 09:05 | XMS_ITS | Encounter Summary ---
[place] [address] Care Team Providers Care Inspector Barrel Name Role Phone Phoenix Guzmán Primary Care Provider [phone] Reason for Visit * Reason Comments Pre-op Exam Right ELZBIETA rev Encounter Details Date Type Department Care Team (Late st Contact Info) Description 11/09/2017 3:30 PM EDT [place] [address] Bryant Miranda MD [facility] [place] [address] Preop examination; Failed total hip arthroplasty with dislocation, subsequent encounter; Coronary artery disease involving [place] coronary artery of [place] heart without angina pectoris Social History Tobacco Use Types Packs/Day Years [...] Sign Reading Time Taken Comments Blood Pressure 117/74 11/09/2017 3:31 PM EDT Pulse 82 11/09/2017 3:31 PM EDT Temperature - - Respiratory Rate - - Oxygen Saturation - - Inhaled Oxygen Concentration - - Weight 133.8 kg (295 lb) 11/09/2017 3:3 1 PM EDT taken from previous appt Height 182.9 cm (6') 11/09/2017 3:31 PM EDT taken from previous appt Body Mass Index 40.01 11/09/2017 3:31 PM EDT documented in this encounter H&P Notes * Bryant Miranda MD - 11/09/2017 3:30 PM EDT Images from the original note were not included. CC: Gunnar Morin is a 72 y.o. male with the following problems and medications that is being seen in the clinic for consultation at the request of his surgeon Dr. Italo Hanna for preoperative risk stratification and management recommendations in anticipation of right total hip revision arthro plasty for recurrent dislocation HPI - He had head and liner exchange with bone graft of his Right ELZBIETA for eccentric wear and osteolysis and had dislocations x2 of this hip. He then had a hiatus of about 8 months without recurrence and then had 3 dislocations in a recent 2 month period. He has been stable in a brace over the hip so far but this impairs his activities and he does not feel the hip is stable despite the brace. Patient Active Problem List Diagnosis Code ??? s/p revision R ELZBIETA with head-liner exchange 06/29/16 (Dr. Rae) with dislocation(12/2016) Z96.649 ??? Osteoarthritis of both knees M17.0 ??? Bilateral knee pain M25.561, M25.562 ??? Arthritis of knee M17.10 ??? CAD (coronary artery disease) I25.10 ??? DJD (degenerative joint disease) of knee M17.10 ??? Obesity, Class II, BMI 35-39.9 E66.9 ??? 09/07/2015 S/P Left total knee arthroplasty (Dr. Rae) Z96.659 ??? H/O total hip arthroplasty Z96.649 ??? 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 Monitoring for anticoagulant use Z51.81, Z79.01 ??? Status post total knee replacement Z96.659 ??? sp R TKA on 09/21/16 Butch M17.11 ??? 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 hydrocortisone 2.5 % Cream Apply topically to the affected areas on the face once daily as needed. (Patient not taking: Reported on 11/09/2017) 30 g 0 ??? tazarotene (TAZORAC) 0.1 % Cream Apply topically to the right shaft of the penis once daily for2 weeks then stop (Patient not taking: Reported on 11/09/2017) 30 g 0 ??? tretinoin (RETIN-A) 0.1 % Cream Apply topically to the right shaft of the penis once daily for 2 weeks then stop (Patient not taking: Reported on 11/09/2017) 20 g 0 ??? aspirin 81 mg Tablet, Delayed Release (E.C.) Take 81 mg by mouth daily. ??? acetaminophen (TYLENOL) 500 mg Tablet Take 2 tablets by mouth every 8 hours. Around the clock until 10/01/16, and then as needed. DO NOT EXCEED 3000 mg tylenol in a 24 hour period. (Patient taking differently: Take 1,000 mg by mouth every 6 hours as needed.) ??? carvedilol (COREG) 12.5 mg Tablet Take 12.5 mg by mouth 2 times daily (with meals). 4 ??? nitroGLYcerin (NITROSTAT) 0.4 mg Tablet, Sublingual Place 1 tablet under the tongue every 5 minutes as needed for Chest pain. 90 tablet 12 ??? clindamycin (CLEOCIN) 150 mg Capsule See Admin Instructions. Reported on 07/28/2016 Current Facility-Administered Medications Medication Dose Route Frequency Provider Last Rate Last Dose ??? mupirocin (BACTROBAN) 2 % ointment Topical (Top) BID Italo Hanna MD Social History Occupational History ??? Not on file. Social History Main Topics ??? Smoking status: Former Smoker Quit date: 01/11/2001 ??? Smokeless tobacco: Never Used ??? Alcohol use Yes 1 Cans of beer per week Comment: occasional ??? Drug use: No ??? Sexual activity: Not on file Family History Problem Relation Age of Onset ??? Cancer Mother Review of Systems: Review of Systems Constitutional: Negative for chills, diaphoresis and fever. HENT: Negative for dental problem, mouth sores and nosebleeds. Eyes: Negative for photophobia and visual disturbance. Respiratory: Negative for cough, shortness of breath and wheezing. Cardiovascular: Negative for chest pain, palpitations and leg swelling. He was swimming, active lawn mowing until the dislocation and brace prevented him. He had no CP or SOB with these activities and continues to use a push mower with out issues. Gastrointestinal: Negative for abdominal pain, anal bleeding and blood in stool. Endocrine: Negative for polydipsia and polyphagia. Genitourinary: Negative for dysuria, frequency, hematuria and urgency. Musculoskeletal: He had right hip dislocation x3 recently over 2 month period and has been wearing an abduction brace with out recurrence so far. Occasional catching in left knee is tolerable and he is not much bothered by that. Skin: Negative for pallor and rash. Allergic/Immunologic: Negative for environmental allergies and immunocompromised state. Neurological: Negative for tremors, facial asymmetry, weakness, light-headedness and numbness. Hematological: Negative for adenopathy. Does not bruise/bleed easily. Psychiatric/Behavioral: Negative for confusion, decreased concentration and sleep disturbance. Allergies: Allergies Allergen Reactions ??? Amoxicillin Trihydrate Hives Physical Exam: Last Set of Vitals and Range over past 24 hours: Last value Range last 24 hrs Temperature Temp: -- Heart Rate Heart Rate: [82] Blood Pressure BP: 117/74 BP: (117)/(74) Respiratory Rate Resp: -- SpO2 SpO2: [98 %] Body mass index is 40.01 kg/(m^2). Height: 182.9 cm (6') (taken from previous appt) Physical Exam Constitutional: He is oriented to person, place, and time. He appears well- developed. No distress. HENT: Head: Normocephalic and atraumatic. Mouth/Throat: Oropharynx is clear and moist. Eyes: Conjunctivae are normal. Right eye exhibits no discharge. Left eye exhibits no discharge. No scleral icterus. Neck: Neck supple. No JVD present. Cardiovascular: Normal rate and regular rhythm. Exam reveals no gallop and no friction rub. Murmur heard. S1 S2 with 2/6 TABBY aortic Pulmonary/Chest: Effort normal and breath sounds normal. No stridor. No respiratory distress. He has no wheezes. He has no rales. He exhibits no tenderness. Abdominal: Soft. Bowel sounds are normal. There is no tenderness. There is no rebound and no guarding. No HSM palpated or percussed but does have suprapubic dullness to percussion Musculoskeletal: He exhibits no edema. Right paramedian scar from prior ACL surgery in 1974. Has full extension in this knee, power is 5/5, flexion to 95. Neurological: He is alert and oriented to person, place, and time. He exhibits normal muscle tone. Coordination normal. DTRs are difficult to elicit in UE and LE. Skin: Skin is warm and dry. He is not diaphoretic. No pallor. Psychiatric: He has a normal mood and affect. His behavior is normal. Judgment and thought content normal. Lab Results Component Value Date WBC 6.0 11/09/2017 RBC 4.80 11/09/2017 HGB 15.3 11/09/2017 HCT 45.8 11/09/2017 MCV 95.4 (H) 11/09/2017 MCH 31.9 11/09/2017 MCHC 33.4 11/09/2017 PLATELET 245 11/09/2017 RDWCV 13.0 11/09/2017 Lab Results Component Value Date NA 142 11/09/2017 K 4.9 11/09/2017 CL 100 11/09/2017 CO2 27 11/09/2017 BUN 18 11/09/2017 CREATININE 1.39 11/09/2017 GLUCOSE 115 11/09/2017 CALCIUM 9.0 11/09/2017 Lab Results Component Value Date CRP 4.4 11/09/2017 SEDRATE 8 11/09/2017 Estimated Creatinine Clearance: 70 mL/min (based on Cr of 1.39). EKG (image reviewed): normal EKG, normal sinus rhythm. Xray images of his right hip - FINDINGS: periprosthetic lucency at proximal femoral component CT hip right October 2017 compared to prior from April 2016 1. Interval revision of right total hip arthroplasty. 2. The acetabula osteolytic focus contains considers bone graft material. 3. Small osteolytic lesions surrounding the proximal femoral stem is similar to previous and may represent pre-existing osteolytic foci without progression. A/P 1. Preop examination 2. Failed total hip arthroplasty with dislocation, subsequent encounter 3. Coronary artery disease involving [place] coronary artery of [place] heart without angina pectoris He has no complaints related to his CAD. It was an incidental finding on preoperative evaluation and he ended with the stents. He has no complaints about his meds that he is on currently and he is limited currently due to the hip dislocations and so elects to proceed with the revision surgery Major Risk Factor per the Revised Cardiac Risk Index (Bold if present) - There is a history of CAD (had LAD stents BMS x2, had complete RCA occlusion with collaterals), no CHF, CVA or TIA, DM2 on insulin, or a Creatinine >2 Risk diagnosis for MACE (major adverse cardiovascular event = Myocardial infarction, pulmonary edema, ventricular fibrillation, primary cardiac arrest, or complete heart block.) : Elevated >1% . The patient describes a functional status of equal to 4METs and more (manages self and walking outside, continues to do yard work within limits of his hip) and based on the ACC/AHA 2014 guideline no further cardiovascular testing is indicated. ARISCAT/CANET Score - estimates the risk of postoperative pulmonary complications as being low ~3.5%. STOP BANG Score - High risk for YESICA. Per the ACS NSQIP calculator I estimated the following. He will continue his asa and carvedilol through the morning of surgery. He will have the abduction brace on as instructed and understands that this will need to be worn after his surgery for 6 weeks. He will continue to address his elevated BMI and its risk including YESICA and complications of arthroplasty as well as increased risk of revisionwith lifestyle changes. RECCO: Needed straight cath after his prior surgery although he did not have urge to void. Suggest higher threshold of 800 ml to catheterize if asymptomatic and no GLADYS. Hold coreg if SBP<100 or HR<50 Continue ASA with the warfarin unless there is active bleeding per surgical site. documented in this encounter Plan of Treatment Upcoming Encounters Date Type Department Care Team (Late st Contact Info) Description 10/31/2023 9:15 AM EDT Office Visit Dermatology at [facility] [address] [place] [address] Dawson Broderick MD [facility] [address] [place] [address] 07/23/2024 9:30 AM EDT Office Visit Dermatology at [facility] [address] [place] [address] Dawson Broderick MD [facility] [address] [place] [address] documented as of this encounter Visit Diagnoses Diagnosis Preop examination Preoperative examination, unspecified Failed total hip arthroplasty with dislocation, subsequent encounter Coronary artery disease involving [place] coronary artery of [place] heart without angina pectoris documented in this encounter Care Teams Inspector Barrel Relationship Specialty Start Date End Date Phoenix Guzmán DO [address] [place] [address] [place] [address] PCP - General General Internal Medicine 02/20/15 documented as of this encounter
--- OUTSIDE RECORDS SUMMARY | 2023-10-23 09:05 | XMS_ITS | Encounter Summary ---
[place] [address] Care Team Providers Care Closing Coordinator Name Role Phone Phoenix Guzmán DO Primary Care Provider [phone] Encounter Details Date Type Department Care Team (Late st Contact Info) Description 11/09/2017 3:00 PM EDT Notes [place] [address] Social History Tobacco Use Types Packs/Day Years [...] as of this encounter Progress Notes * Lou Bernard - 11/09/2017 3:00 PM EDT Office of Care Management Initial Assessment ? Lou Rao??reviewed record and discussed patient with Care Team. ? Source of Information:??Gunnar Morin Introduced self/reviewed role; services accepted. ? Reason for Hospitalization: Failed right ELZBIETA. Right ELZBIETA revision on 12/01/[address] Italo Hanna. No past medical history on file. ? Hospitalizations Within the Past 30 Days:? Anticipated Length Of Stay??(If known):? Current Decision-Making Capacity:??He is capable of making his own medical decisions. ? Advance Care Planning:??He has an advanced directive on file in his medical record. His designated agent to make healthcare decisions for him should he become incapacitated is his , Sussy Morin. ? Current Coping/Education/Information Needs:??He appears to understand the hospital course and discharge plans for a [facility] [facility] as outlined by the outpatient ortho clinic. [facility]. ? Current Functional Ability:? Functional Status Prior to Admission:??At his pre-op baseline, he ambulates independently with a brace to stabilize the operative hip. Able to do ADL without assistance. Able to manage household tasks. Sussy assists where he us unable to. Able to drive. Retired. ? Home Environment: LIVES IN A 2 LEVEL HOUSE. 3 STEPS INTO THE HOUSE WITH A POST TO HOLD ONTO. 13 STEPS TO THE SECOND FLOOR. BEDROOM IS ON 2ND FLOOR. WILL STAY ON MAIN LEVEL AFTER SURGERY IN THE RECLINER. HAS A TUB SHOWER. ? Social & Family Supports/Community Resources:??His primary caregiver(s) is going to be Sussy. She has had also had a joint replacement. ? Behavioral Health History:??None ? Substance Use/Abuse:?? Smoking: Former Smoker (Quit Date:01/11/2001) Smokeless Tobacco: Never Used Alcohol: No ? Other Pertinent/Service Specific Information:??I discussed with the patient the potential avenues of discharge postoperatively. We discussed qualifications to go to a correction facility. We discussed Medicare guidelines for admission into a correction facilityas well as transportation, namely, ambulance and the Medicare guidelines associated with ambulance or wheelchair vans. We discuss ed the purpose and services provided by [facility]. I communicated ??that we will not know until after surgery what will be the best course of discharge for the patient based on medical necessity and that this is why we plan for different courses of discharge. I informed the patient that they will be working with a child care group leader after surgery to facilitate the discharge plan. I encouraged the patient to call me with any questions or concerns prior to the surgery as well as when they discharge home. ? Health/Prescription Coverage: ?Primary Insurance:??Medicare A and B ?Secondary Insurance:??[place] ?Prescription Coverage:??BCBS Rx ?Preferred Pharmacy:??[facility] ?[address] ?[place] ?Phone:??[phone] ?Fax:??[phone] ?Other:??None ? Primary Care Provider:??Phoenix Guzmán, DO??[phone] ? Patient/Caregiver Goals of Treatment:??He wants to be able to mow the lawn, cut the wood, play pickle ball, ride the 4 wheelers, etc. ? Potential Needs for Transition of Care:?? Rehab/SNF:??No selection Home Health:??[facility] [address] [place] [address] ?OP PT: [facility] ?DME:??Has a 2- 2 FWW's, crutches, 2 canes, grabbers, sock assist, shoe horn, leg hull outfit supervisor, shower chair, and commode. ?Dialysis:??No ?Community Resources:??None Transportation:??We discussed since we cannot determine the exact day or time of discharge preoperatively: His transportation must be readily available at time of discharge. He'll be transported by Sussy. ?Other:??None ? Anticipated Barriers to Discharge/Special Considerations:??None ? Plan:??He prefers to go home with [facility]. ? A member of the Care Management team will continue to monitor progress, follow for continuity of care and assist with transition of care planning. ? Lou Rao Pager:??[phone] ?? documented in this encounter Plan of Treatment Upcoming Encounters Date Type Department Care Team (Late st Contact Info) Description 10/31/2023 9:15 AM EDT Office Visit Dermatology at [facility] [address] [place] [address] Dawson Broderick MD [facility] [place] [address] 07/23/2024 9:30 AM EDT Office Visit Dermatology at [facility] [address] [place] [address] Dawson Broderick MD [facility] [place] [address] documented as of this encounter Visit Diagnoses Not on filedocumented in this encounter Care Teams Closing Coordinator Relationship Specialty Start Date End Date Phoenix Guzmán DO [address] [place] [address] [place] [address] PCP - General General Internal Medicine 02/20/15 documented as of this encounter
--- OUTSIDE RECORDS SUMMARY | 2023-10-23 09:05 | XMS_ITS | Encounter Summary ---
[place] [address] Care Team Providers Care Pastrycook Name Role Phone Phoenix Guzmán Primary Care Provider [phone] Reason for Visit * Reason Comments Hip Pain right Encounter Details Date Type Department Care Team (Late st Contact Info) Description 11/09/2017 1:50 PM EDT Office Visit [place] [address] Italo Salinas MD [facility] [place] [address] Hip pain, right; History of total hip arthroplasty, right Social History Tobacco Use Types Packs/Day Years [...] Time Taken Comments Blood Pressure 117/74 11/09/2017 1:29 PM EDT Pulse 82 11/09/2017 1:29 PM EDT Temperature - - Respiratory Rate - - Oxygen Saturation - - Inhaled Oxygen Concentration - - Weight 88.6 kg (195 lb 6.4 oz) 11/10/19 18 1:29 PM EDT pt reported Height 182.9 cm (6') 11/09/2017 1:29 PM EDT pt reported Body Mass Index 26.5 11/09/2017 1:29 PM EDT documented in this encounter Progress Notes * Italo Salinas MD - 11/09/2017 1:50 PM EDT Arthroplasty History/Previous Hip Surgery: 1. 09/07/2015 S/P Left total knee arthroplasty (Dr. Rae) 2. sp R TKA on 09/21/16 Butch 3. s/p revision R ELZBIETA with head-liner exchange 06/29/16 (Dr. Rae) with dislocation(12/2016) This note is recorded by ITALO SALINAS MD acting as a scribe for Dr. Enrique Salinas . PREOPERATIVE VISIT Interval History: Gunnar Morin is a pleasant 72 y.o. 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 5 dislocations since revision for eccentric wear. Wearing abduction brace. He does not endorse a history of DVT/PE or clotting Physical Exam: Exam is previously documented in my note and is essentially unchanged. Clinical Leg Length Discrepancy - 0cm Inspection of his skin on the operative side demonstrates No skin breakdown. Significant Medical Comorbidities Patient Active Problem List Diagnosis Code ??? [...] M17.11 ??? 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 Relevant Lab Studies Lab Results Component Value Date WBC 6.0 11/09/2017 HGB 15.3 11/09/2017 HCT 45.8 11/09/2017 PLATELET 245 11/09/2017 CREATININE 1.39 11/09/2017 BUN 18 11/09/2017 NA 142 11/09/2017 K 4.9 11/09/2017 CRP 4.4 11/09/2017 SEDRATE 8 11/09/2017 INR 1.0 11/09/2017 No results for input(s): HA1C in the last 7068 hours. No results for input(s): ALBUMIN in the last 168 hours. Estimated Creatinine Clearance: 54.3 mL/min (based on Cr of 1.39). Blood Type: A Neg Questionnaire Response [facility] Surgical Preop Visit 10/12/2017 PROMIS-10 General Health Very Good PROMIS-10 Quality of Life Good PROMIS-10 Physical Health Good PROMIS-10 Mental Health Good PROMIS-10 Social Activity Good PROMIS-10 Everyday Activities Completely PROMIS-10 Pain 3 PROMIS-10 Fatigue Mild PROMIS-10 Social Roles Good PROMIS-10 Anxious or Depressed Rarely PROMIS PHYSICAL SCORE (range 16-68) 50.8 PROMIS MENTAL SCORE (range 21-68) 45.8 Treatments Tried - Prior Surgery - HOOS JR Scores - KOOS JR Scores 68.28 TKA Grade 8 Pain in other KNEE Mild ELZBIETA Grade - Pain in other HIP - Back pain at this moment None Health Literacy - Orthope[facility] Response 10/12/2017 HOOS JR Scores - KOOS JR Scores 68.28 Sp[facility] Response 10/12/2017 HOOS JR Scores - KOOS JR Scores 68.28 Assessment and Plan: This is a pleasant 72 y.o. year-old male who presents to discuss for RIGHT hip revision. I had a long discussion with him regarding the risks and benefits of total hip arthroplasty revision surgery. I indicated that in my opinion, this is the treatment option most likely to restore a more normal, pain-free level of function and that we have exhausted reasonable non-operative alternatives. I discussed how I perform the procedure and the surgical plan. All of their questions were answered. Mr. Morin expressed a desire to pursue this option. We then discussed in great detail the risks associated with the proposed surgery. These included but were not limited to: bleeding (which may or may not require transfusion), infection, damage to nerves or blood vessels, deep venous thrombosis, pulmonary embolus, prosthetic failure, loosening, prosthetic fracture, femur or pelvic fracture, dislocation, leg-length inequality, persistent pain, needfor future surgery, medical complications (including cardiac, respiratory and neurologic complications), anaesthetic complications, and . The patient seemed to understand the nature of this procedure's risks. We also discussed the likely benefit of improved stride length, improved range of motion, decreased pain, decreased need for pain medications and decrease functional limitations. The patient is aware that it would take on average 2 days in the hospital, followed by approximately 12-18months to full rehabilitation. The patient was seen and evaluated by Dr. Bryant Miranda, our Orthopaedic faculty dean, to help with perioperative optimization and he felt that it was appropriate to proceed with surgery.. I reviewed the labs and did not identify anything that would warrant surgical delay. We discussed DNR status and he is a Full Code We reviewed options for postoperative DVT prophylaxis, based on AAOS guidelines. We discussed the pros and cons of different anticoagulants in terms of effectiveness and clot / embolus preventions vs. risks of bleeding and wound complications. We also reviewed their preferences regarding use of blood products and confirmed that while we would endeavor to minimize the risks of needing any transfusions, if circumstances were such that one ormore were indeed required, he would NOT refuse a blood transfusion. Opioid PDMP 11/09/2017 05/18/2016 04/28/2016 [place] PDMP Query Date 11/07/2017 06/30/2016 04/28/2016 Gunnar Morin will be prescribed a prescription opioid for the treatment of acute post-operative pain related to Orthopedic surgery. Gunnar Morin will be advised to take the smallest dose possible to control their pain and as their pain improves to take smaller doses and increase the time between doses. In addition to this medication, non-opioid medications will be prescribed for adjunct treatment of their pain. Non-pharmacological treatment such as ice, elevation and activity modification will be recommended as appropriate. The Acute Opioid Therapy Informed Consent form has been completed and sent to medical records for scanning to chart. We discussed with them the possible discharge scenarios including going home versus needing to go to a rehab facility depending on how well their mobility progresses post-operatively. TJA Clotting and Bleeding Assessment Genetic predisposition or history of DVT or PE: No Hypercoaguable state?: No, History of a malignancy within past 2 years (melanoma) History of bleeding disorder?: No GI bleed or history of hemorrhagic stroke within the past 2 years: No Patient on lifelong anticoagulant for other reasons: No Discharge anticoagulation plan: Warfarin (goal INR ~2) for 30 days Infection Prevention Patient demonstrated appropriate skin integrity/infection knowledge level after instructions provided: Yes Patient demonstrated appropriate dental prophylaxis knowledge level after instructions provided: Yes Patient demonstrated appropriate understanding of pre-op chlorhexideine wash and mupirocin ointmentuse after instructions provided: Yes General Assessment Total joint preparedness for surgery: Received binder, 1:1 Patient understands when to call the office pre-op and post-op: Verbalizes understanding Assistive device(s) used pre-op: None Patient currently on narcotics: No Patient has narcotic agreement signed: No Any remaining questions were solicited from the patient and answered. Mr. Morin wishes to proceed accordingly and informed consent was subsequently obtained for a RIGHT total hip arthroplasty REVISION. Cup revision for retroversion I reviewed and included below all recommendations offered by Doctor Miranda: RECCO: Needed straight cath after his prior surgery although he did not have urge to void. Suggest higher threshold of 800 ml to catheterize if asymptomatic and no GLADYS. Hold coreg if SBP<100 or HR<50 Continue ASA with the warfarin unless there is active bleeding per surgical site. Discussed conversion to dual mobility. Constrained liner as a bailout if he continues to dislocate. Abduction brace postop for 6 weeks. discussed using Celebrex while in house. We discussed using Naprosyn for 6 weeks after surgery for post-operative pain management. I ensured that the patient has the needed samples of hibiclens wash to use both the night before and the morning of the anticipated surgery. I have personally evaluated the patient and agree with the above note as recorded by ITALO SALINAS MD. Enrique Salinas MD 11/09/2017 The below has been copied from a prior note: 10/13/2017 I was asked by Dr. Rae to speak with Mr. Morin about his recurrently dislocating right hip. It initially was performed approximately 20 years ago. He underwent a head and liner exchange for significant osteolysis and eccentric poly-wear. Unfortunately since then he has had multiple dislocations.He reports not being able to put his shoes on her bend over because of how unstable his hip has been and feels. We discussed the merits of revision surgery. It sounds like I had a very similar conversation to him as has Dr. Rae. We discussed revision of the acetabular component which appears retroverted on the CT scan to a dual mobility implant. We can increase his anteversion and likely increase his head size. He has a 36 mm head and I told him I likely could get a 46-50 mm head with a revision. I outlined increasing the head size and change in the cup position certainly would likely improve his stability and dual mobility would likely help as well. I did outline the biggest risk or 1 ofthe biggest risks of surgery would be recurrent dislocation and instability. I did explain the option of a constrained liner and how I would use that as a last resort. At this point he like to consider revision surgery and I do think this is reasonable as he has had now at least 4 dislocations. We discussed timing of things and I will have my surgical schedulers reach out to him. He would like todo this on a day when both Dr. Rae and myself are available and will try to schedule accordingly.All questions were answered. documented in this encounter Plan of Treatment Upcoming Encounters Date Type Department Care Team (Late st Contact Info) Description 10/31/2023 9:15 AM EDT Office Visit Dermatology at [address] [place] [address] Dawson Broderick MD [facility] [address] [place] [address] 07/23/2024 9:30 AM EDT Office Visit Dermatology at [facility] [address] [place] [address] Dawson Broderick MD [facility] [address] [place] [address] documented as of this encounter Visit Diagnoses Diagnosis Hip pain, right Pain in joint, pelvic region and thigh History of total hip arthroplasty, right documented in this encounter Care Teams Pastrycook Relationship Specialty Start Date End Date Phoenix Guzmán DO [address] [place] [address] [place] [id number] PCP - General General Internal Medicine 02/20/15 documented as of this encounter
--- OUTSIDE RECORDS SUMMARY | 2023-10-23 09:05 | XMS_ITS | Encounter Summary ---
Author Organization Formerly [facility] [place] [address] Care Team Providers Care Community Service Worker Name Role Phone DevantePhoenix orozco Susan MCDOWELL Primary Care Provider [phone] Reason for Visit * Auth/Cert Specialty Diagnoses / Procedures Referred By Omid shepherd Referred To Contact Diagnoses Recurrent dislocation, right hip recurrent dislocation R hip RECURRENT DISLOCATION,RIGHT HIP Procedures PRO REVISE TOTAL HIP REPLACEMENT @TOTAL HIP REVISION ARTHROPLASTY, COMPLETE (WRVU 30.28) Referral ID Status Reason Start Date Expiration Date Visits Re quested Visits Authorized [id number] 1 1 Encounter Details Date Type Department Care Team (Late st Contact Info) Description 12/01/2017 11:00 AM EDT - 12/01/2017 1:58 PM EDT [place] [id number] Italo Hanna MD [facility] [place] [address] @TOTAL HIP REVISION ARTHROPLASTY, COMPLETE (WRVU 30.28) Social History Tobacco Use Types Packs/Day Years [...] Sign Reading Time Taken Comments Blood Pressure 121/79 12/01/2017 1:54 PM EDT Pulse 69 12/01/2017 9:32 AM EDT Temperature 36.7 ??C (98.1 ??F) 12/01/2017 1:54 PM ED T Respiratory Rate 14 12/01/2017 1:54 PM EDT Oxygen Saturation 97% 12/01/2017 1:54 PM EDT Inhaled Oxygen Concentration - - Weight 133.8 kg (295 lb) 12/01/2017 9:32 AM EDT Height 182.9 cm (6') 12/01/2017 9:32 AM EDT Body Mass Index 40.01 12/01/2017 9:32 AM EDT documented in this encounter Discharge Summaries * Julia Soriano, MICROFILM DUPLICATING UNIT SUPERVISOR - 12/02/2017 1:23 PM EDT Discharge Summary Patient Name: Gunnar Morin Patient Age: 72 y.o. Language: Belarusian Race: White Ethnicity: Not nor Admit date: 12/01/2017 Discharge date and time: 12/02/2017 Attending Physician: Italo Hanna MD Discharge Physician: Italo Hanna MD Follow-up Recommendations for Providers: See discharge instructions for additional details. Future Appointments Date Time Provider Department Center 01/08/2018 10:00 AM [facility] DX ROOM 1 [facility]ray [facility] 01/08/2018 11:00 AM Italo Hanna MD [facility] 01/23/2018 9:30 AM Dawson Broderick MD [facility] Inpatient Provider Contact Information: Italo Hanna MD Orthopedics: [phone] After hours and weekends, call [facility] Bottle Washer Machine, , and have the Orthopedic resident paged. [...] Weight: Wt Readings from Last 1 Encounters: 08/31/18 133.8 kg (295 lb) Height: Ht Readings from Last 1 Encounters: 08/31/18 182.9 cm (6') HC: HC Readings from [...] will either come on Monday, 12/03 or 12/04. This will bechecked by [...] please call the Orthopedic Clinic Nurse at [phone] for further dose instructions. If it is after 5pm or on the weekends, the Orthopedic resident data power consultant will be managing your dosing (please call [phone] and ask for them to be paged). [...] not take or discontinue any prescription or brpi-abe-dvprrkr medications without asking your doctor or pharmacist [...] bowel movement. You can also take an pnll-wsw-eoqcaiw medication, Miralax if needed to combat constipation. [...] as much as possible. Call your doctor ([phone]) if you develop: 1. Fever greater than 100.5 2. Severe nausea or vomiting 3. Increasing pain that is not controlled by pain medications 4. Increasing redness, swelling, or drainage from incisions 5. Change in sensation FOLLOW-UP APPOINTMENTS: 1. You will have follow-up appointments at [facility] as indicated below in Future Appointment and Orders. 2. You will need to have x-rays prior to your follow-up appointment on 01/08/2018. Please come to Radiology, desk 3T, 1 hour BEFORE that appointment for these x-rays. Future Appointments Date Time Provider Department Center 01/08/2018 10:00 AM [facility] DX ROOM 1 [facility] 01/08/2018 11:00 AM Italo Hanna MD [facility] 01/23/2018 9:30 AM Dawson Broderick MD [facility] Derm [facility] If you have questions or concerns: Monday through Monday, 8 AM - 5 PM, please call Italo Zee MD's office at . If it is after 5 PM, the weekend, or holidays, please call and ask to speak with theOrthopedic resident on-call. General Instructions None Future Appointments and Orders Future Appointments Provider Department Dept Phone 01/08/2018 10:00 AM [facility] DX ROOM 1 XRay at [place] [phone] Please go to [facility] 3T ([place] Location). 01/08/2018 11:00 AM Italo Hanna MD Orthopaedics at [place] [phone] 01/23/2018 9:30 AM Dawson Broderick MD Dermatology at [facility] [phone] Future Orders Complete By Expires Referral for Anticoagulation Monitoring [BSJ300 Custom] As directed Process Instructions: If no [...] Referral to Home Health - at DISCHARGE [EMQ7564 CPT(R)] As directed Process Instructions: Scheduling Instructions: Comments: DOCUMENTATION FOR VNA SERVICES (INCLUDING THOSE PATIENTS WITH MEDICARE COVERAGE REQUIRING HOME VNA SERVICES AND/OR HOSPICE SERVICES) Gunnar Morin Discharge to own [place]: [phone] [place] [place] [address] (home) Charger's Name: self and In discussion with the attending physician, it is certified that this patient is under their care and that they, or a nurse practitioner, clinical nurse specialist or physician's project assistant who is working directly with them, [...] for services as follows: Home Health Agency: [facility]. PHONE: [phone] FAX: [phone] Home care orders for Total Hip Revision: (RN+PT) RN: 1. Draw PT/INR as follows: (point of care testing is acceptable) Week of discharge: PER MD/BARRER AND TACKER/PA ORDERS - Draw INR on Monday or Monday, 12/03 or 12/04/2017 Thereafter, PT/INR: every Monday and PT/INR results to be reported as follows: Mon-Mon Ortho anticoagulation (Coumadin) clinic @ [facility] ; Sat/Sun: if the PT/INR is dreqn on the weekend, call results to Ortho Resident data power consultant @ [phone] for coumadin dosing 2. Assess wound, pain [...] from this patient's PCP: Phoenix Guzmán DO [address] [place] [address] [place] [address] All VNA agencies which cover the area of patient's residence have been reviewed, either verbally santy writing, and patient/family have chosen the home health care agency as noted for home services. Questions: Agency name and contact information: Nguyen Mittal Patient location post discharge: own home What services are requested: Physical Therapy Registered Nurse Start date: Responsible MD post discharge contact info: [facility] Orthopedic Service Primary Care Provider: Phoenix Guzmán DO [phone] Discharge References/Attachments None documented in this encounter Discharge Instructions * Patient Instructions* Julia Soriano, MICROFILM DUPLICATING UNIT SUPERVISOR - 12/02/2017 2:16 PM EDT Activity: 1. [...] will either come on Monday, 12/03 or 12/04. This will bechecked by [...] please call the Orthopedic Clinic Nurse at [phone] for further dose instructions. If it is after 5pm or on the weekends, the Orthopedic resident data power consultant will be managing your dosing (please call [phone] and ask for them to be paged). [...] not take or discontinue any prescription or nqmh-ypx-thvjbyi medications without asking your doctor or pharmacist [...] bowel movement. You can also take an kcbj-iyh-pdtfnkq medication, Miralax if needed to combat constipation. [...] as much as possible. Call your doctor ([phone]) if you develop: 1. Fever greater than 100.5 2. Severe nausea or vomiting 3. Increasing pain that is not controlled by pain medications 4. Increasing redness, swelling, or drainage from incisions 5. Change in sensation FOLLOW-UP APPOINTMENTS: 1. You will have follow-up appointments at [facility] as indicated below in Future Appointment and Orders. 2. You will need to have x-rays prior to your follow-up appointment on 01/08/2018. Please come to Radiology, desk 3T, 1 hour BEFORE that appointment for these x-rays. Future Appointments Date Time Provider Department Center 01/08/2018 10:00 AM [facility] DX ROOM 1 [facility]ray [facility] 01/08/2018 11:00 AM Italo Hanna MD [facility] 01/23/2018 9:30 AM Dawson Broderick MD [facility] If you have questions or concerns: [...] daily. 12/02/2017 01/08/2018 tazarotene (TAZORAC) 0.1 % CreamIndications:Vinny zamudio melanoma, unspecified site Apply topically to the right shaft of the penis once daily for 2 weeks then stop 30 g 02/09/2017 01/08/2018 tretinoin (RETIN-A) 0.1 % CreamIndications:Vinny zamudio melanoma, unspecified site Apply topically to the [...] full assessment. Clementine Armstrong RN * Gunnar Humphrey, OT - 12/02/2017 1:27 PM EDT OCCUPATIONAL [...] home when medically appropriate for d/c. Gunnar Humphrey, OT Pager: [phone] * Chau Simeon W - 12/02/2017 6:13 AM EDT ORTHOPAEDIC SURGERY [...] ??? sodium chloride 0.9% 1,000 mL (12/01/17 1180) OBJECTIVE: Temp: [36.2 ??C (97.2 ??F)-37.1 ??C [...] Time Provider Department Center 01/08/2018 10:00 AM [facility] DX ROOM 1 [facility] 01/08/2018 11:00 AM Italo Hanna MD [facility] 01/23/2018 9:30 AM Dawson Broderick MD [facility] * Clementine Armstrong RN - 12/01/2017 6:34 PM EDT Patient arrived [facility] via bed from PACU s/p R ELZBIETA revision. Patient AOx 4, HRR, lung sounds clear, lbm 11/30, medina draining CYU urine. +csmt to all extremities. Dressing clean dry and intact. Pain 1/10 at this time. Patient oriented to room, [...] ??C (98.1 ??F)] Heart Rate: [54-69] Resp: [9-22] BP: [...] Time Provider Department Center 01/08/2018 10:00 AM [facility] DX ROOM 1 [facility] 01/08/2018 11:00 AM Italo Hanna MD [facility] 01/23/2018 9:30 AM Dawson Broderick MD [facility] documented in this encounter H&P Notes * [...] for objective information regarding today's session: 12/02/17 1225 Rehab Evaluation Document Type evaluation Total Evaluation [...] Assessment/Treatment (Group);Transfer Assessment/Treatment (Group) Bed Mobility Assessment/Treatment Xirqit-gl-Zmt Serafina (Bed Mobility) independent Impairments (Bed Mobility) flexibility decreased;pain;strength decreased Comment (Bed Mobility) (maintains precautions well) Transfer Assessment/Treatment Serafina (Sit-Stand Transfers) conditional independence Serafina (Stand-Sit Transfers) independent Vht-Ggbsv-Sug Assistive Device (Transfers) rolling walker Impairments (Transfers) flexibility decreased;pain Gait Assessment/Treatment Serafina (Gait) conditional independence Assistive Device (Gait) rolling walker Distance in Feet (Gait) 200 Gait Pattern Analysis swing-through gait Impairments (Gait) flexibility decreased;pain Stairs Assessment/Treatment Number of Stairs (Stairs) 3 Handrail Location (Stairs) left side (ascending) Serafina (Stairs) supervision required Assistive Device (Stairs) straight cane Technique (Stairs) mjcr-nw-kwyp (ascending);qimd-jg-ldgk (descending) Maintain Weight Bearing Status (Stairs) able [...] steps with a railing? 4 - None AM-PAC Basic Mobility Raw Score 21 Basic Mobility Standardized T-Scale Score 50.25 Basic Mobility CMS 0-100% 28.97 AM-PAC Basic Mobility CMS Modifier CJ Motor Skills/Interventions [...] with home health MICHELLE CAVAZOS, PT Pager: [phone] Inpatient Physical Therapy G-Code: Mobility Status Modifier [...] Hanna MD - 12/01/2017 2:18 PM EDT [facility] Operative Note Patient Name: Gunnar Morin : [id number] MR#: [id number] Case Date: 12/01/2017 Surgeon: Surgeon(s) and Role: [...] Femoral Stem: Retained SROM Liner: Biomet G7 [id number] dual mobility Femoral Head: Depuy 28+6mm head [...] Implant Name Type Inv. Item Serial No. Structural Iron Worker Lot No. LRB No. Used Action SCREW,TRILOGY,HIP,6.5X40MM ([id number]) - [id number] IMPLANTS SCREW,TRILOGY,HIP,6.5X40MM ([id number]) [employer] - JUAN BIO [id number] Right 1 Implanted SCREW,TRILOGY,HIP,6.5X40MM ([id number]) - [id number] IMPLANTS SCREW,TRILOGY,HIP,6.5X40MM ([id number]) [employer] - [employer] BIO [id number] Right 1 Implanted SCREW,TRILOGY,HIP,6.5X20MM ([id number]) - [id number] IMPLANTS SCREW,TRILOGY,HIP,6.5X20MM ([id number]) [employer] BIO [id number] Right 1 Implanted BONE,CRUSHED,CANCELLOUS,30CC ([id number]) (AUTOREQ) - [id number] IMPLANTS BONE,CRUSHED,CANCELLOUS,30CC([id number]) (AUTOREQ) [facility] [id number] Right 1 Implanted SCREW,TRILOGY,HIP,6.5X25MM ([id number]) - [id number] IMPLANTS SCREW,TRILOGY,HIP,6.5X25MM ([id number]) [employer] JUAN BIO [id number] Right 1 Implanted documented in this encounter Plan of Treatment Upcoming Encounters Date Type Department Care Team (Late st Contact Info) Description 10/31/2023 9:15 AM EDT Office Visit Dermatology [facility] [address] [place] [address] Dawson Broderick MD [facility] [address] [place] [address] 07/23/2024 9:30 AM EDT Office Visit [facility] [address] [place] [address] Dawson Broderick MD [facility] [address] [place] [address] Scheduled Referrals Name Type Priority Associated Diagnoses Order Schedule Referral for Anticoagulation Monitoring Outpatient Referral Routine 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 Hanna) Ordered: 12/02/2017 documented as of this encounter Procedures Procedure Name Priority Date/Time Associated Diagnosis Comments IMPLANTABLE DEVICES SCAN 12/05/2017 12:00 AM EDT FURNACE DOOR TENDER SCAN 12/05/2017 12:00 AM EDT PROTHROMBIN TIME [...] SCAN EXT O RDR/RSLT * SCAN DOC: FURNACE DOOR TENDER (12/05/2017 12:00 AM EDT) Anatomical Region Laterality Modality Other Narrative 12/05/2017 12:00 AM EDT Ordered by an unspecified provider. Scanning Provider MEDIA MGR SCAN EXT O RDR/RSLT * Prothrombin Time (12/02/2017 10:40 AM EDT) PT 12.5 9.4 - 12.5 sec [facility] INR 1.1 [facility] [...] Lab Italo Hanna MD HEMATOLOGY ORDERABL ES [facility] [place] [address] * (ABNORMAL) Basic Metabolic Panel (non-fasting) (12/02/2017 10:40 AM EDT) Glucose Lvl 133 65 - 199 mg/dL [facility] Comment:Diabetes: >=200 mg/d L plus symptoms BUN 17 10 - 20 mg/dL [facility] Creatinine 1.22 0.80 - 1.50 mg/dL [facility] Sodium 139 135 - 145 mmol/L [facility] Potassium 4.5 3.5 - 5.0 mmol/L [facility] Comment: Please note: ??Patients with WBC >100,000 may have falsely elevated Potassium levels. ??For accurate Potassium quantification in these patients send serum separator tube (gold top) for subsequent determinations. ??Contact the Clinical Chemistry Laboratory if there are any questions. Chloride 103 98 - 107 mmol/L [facility] CO2 26 22 - 31 mmol/L [facility] Anion Gap 10 5 - 15 mmol/L [facility] Calcium 7.9(L) 8.5 - 10.5 mg/dL [facility] Estimated GFR 60 >=60 mL/min/1. 73 m?? [facility] Comment: The eGFR was calculated using the CKD-EPI equation. As with all creatinine based estimates of kidney function, eGFR values calculated with the CKD-EPI equation are not accurate in patients with acute kidney failure, extremes of body mass or the acutely ill. http://Noblivity/DHMCnkf eGFR 69 >=60 mL/min/1. 73 m?? [facility] Comment: The eGFR was calculated using the CKD-EPI equation. As with all creatinine based estimates of kidney function, eGFR values calculated with the CKD-EPI equation are not accurate in patients with acute kidney failure, extremes of body mass or the acutely ill. http://39 Health.PublicVine/DHMCnkf Blood specimen (specimen) 12/02/2017 10:40 AM EDT 12/02/2017 10:54 AM EDT Narrative Resulting Agency Comment Spec In Lab Italo Hanna MD CHEMISTRY ORDERABLE S Performing Organization Address [facility] de Phone Number [facility] [place] [address] * Prothrombin Time (12/01/2017 6:10 PM EDT) PT 12.5 9.4 - 12.5 sec [facility] INR 1.1 [facility] [...] MD HEMATOLOGY ORDERABL ES Performing Organization Address [facility] de Phone Number [facility] [place] [address] * XR Pelvis (Generic) (12/01/2017 2:15 PM [...] PM EDT) Spec Type BF Hip, Right [facility] Color BF Yellow [facility] Appearance BF Hazy [facility] WBC BF Ct 515 /mcl [...] to patients chart. Polymorph % 39 % [facility] Comment: This result has [...] manually for concordance. Polymorph BF ABS 201 /[facility] Comment: Polymorphonuclear cell percent and absolute values may contain Neutrophils, Eosinophils, and Basophils. Body fluid smear will be scanned manually for concordance. Mononuc ABS 314 /[facility] Comment: Mononuclear cell percent and absolute values may contain Lymphocytes and Monocytes. Body fluid smear will be scanned manually for concordance. Swab from hip region (specimen) 12/01/2017 12:20 PM EDT 12/01/2017 12:26 PM EDT Narrative Resulting Agency Comment Spec In Lab Italo Hanna MD BODY FLUIDS AND STO OLS ORDERABLES [facility] [place] [address] documented in this encounter Visit Diagnoses Not on filedocumented in this encounter Admitting Diagnoses Diagnosis Recurrent [...] Given 12/02/2017 8:44 AM EDT 81 mg bacitracin injection ONCE PRN, Starting on Mon12/01/17 at 1229, Until 12/02/17 at 1813, Intra-Operative (Intra-Procedure), Routine Given 12/01/2017 12:29 PM EDT 50,000 Units 19- Surgical Site BUpivacaine (PF) (MARCAINE) 0.25 % (2.5 mg/mL) injection ONCE PRN, Starting on Mon12/01/17 at 1211, Until 12/02/17 at 1813, Intra-Operative (Intra-Procedure), Routine Given 12/01/2017 12:53 PM EDT 50 mLs 19- Surgical Site Given 12/01/2017 12:11 PM EDT 10 mLs 1 9- Surgical Site carvedilol (COREG) tablet 12.5 mg 12.5 mg, Oral, 2 TIMES DAILY WITH MEALS, First dose on Mon12/01/17 at 1700, Until Discontinued, Hold for SBP<100, HR<50, Recovery (Recovery-Hospital Unit), Routine Given 12/02/2017 8:44 AM ED T 12.5 mg Given 12/01/2017 5:04 PM EDT 12.5 mg cloNIDine injection ONCE PRN, Starting on Mon12/01/17 at 1253, Until 12/02/17 at 1813, Intra-Operative (Intra-Procedure), Routine Given 12/01/2017 12:53 PM EDT 50 mcg 19- Surgical Site gabapentin (NEURONTIN) capsule 300 mg 300 mg, Oral, NIGHTLY, First dose on Mon12/03/17 at 2100, Until Discontinued, Recovery (Recovery-Hospital Unit), Routine gabapentin (NEURONTIN) capsule 600 mg 600 mg, Oral, NIGHTLY, 2 doses, First dose on Mon12/01/17 at 2100, Last dose on 12/02/17 at 2100, Recovery (Recovery-Hospital Unit), Routine Given 12/01/2017 9:02 PM EDT 600 mg ketorolac (TORADOL) injection ONCE PRN, Starting on Mon12/01/17 at 1253, Until 12/02/17 at 1813, Intra-Operative (Intra-Procedure), Routine Given 12/01/2017 12:53 PM EDT 30 mg 19- Surgical Site ondansetron (ZOFRAN) injection 4 mg 4 mg, [...] Given 12/01/2017 9:02 PM EDT 17 g povidone-iodine 5 % ophthalmic solution ONCE PRN, Starting on Mon12/01/17 at 1234, Until 12/02/17 at 1813, Intra-Operative (Intra-Procedure), Routine Given 12/01/2017 12:34 PM EDT 30 mLs 19- Surgical Site senna-docusate (PERICOLACE) 8.6-50 mg per tablet 2 [...] on Mon12/01/17 at 1430, Last dose on Sat /1/18 at 0630, Administer over 30 Minutes, Recovery [...] (Intra-Procedure), Indication for (Active or Suspected): Prophylaxis 1206 (Given - Provider: Mary Birch CRNA) celecoxib (CeleBREX) capsule 400 mg (COMPLETED) 400 mg, Oral, ONCE, 1 dose, On Mon12/01/17 at 1000, Administer on arrival to Same Day Program, Day of Surgery (Day of Procedure), Routine 09 (Given - Provider: Esteban Greenwood RN) gabapentin (NEURONTIN) capsule 300 mg (COMPLETED) 300 mg, Oral, ONCE, 1 dose, On Mon12/01/17 at 1000, Administer on arrival in Same Day Program, Day of Surgery (Day of Procedure), Routine 09 (Given - Provider: Esteban Greenwood RN) gabapentin [...] (Recovery-Hospital Unit), Routine 2101 (Given - Provider: Mnia Walton RN) 0845 (Given - Provider: Clementine [...] 12/02/17 at 2100, Recovery (Recovery-Hospital Unit), Routine Followed [...] Unit) documented in this encounter Care Teams Community Service Worker Relationship Specialty Start Date End Date Phoenix Guzmán DO [address] [place] [address] [place] [address] PCP - General General Internal Medicine 02/20/15 documented as of this encounter
--- OUTSIDE RECORDS SUMMARY | 2023-10-23 09:05 | XMS_ITS | Encounter Summary ---
[place] [address] Care Team Providers Care Tractor Driver Name Role Phone Phoenix Guzmán DO Primary Care Provider [phone] Encounter Details Date Type Department Care Team (Latest Contact Info) Description 12/25/2017 Anti-Coag Telephone [place] [address] Magaly العراقي, RN Recurrent dislocation, right hip [...] Progress Notes * Magaly العراقي, RN - 12/25/2017 1:33 PM EDT Anticoagulation Therapy Nurse Visit Gunnar Morin 1945 Surgeon: Jacques Ac Coumadin Clinic: [phone] Indication: DVT Prophylaxis S/P Joint Replacement Duration of Treatment: 30 days ends: After dose on 12/31/17 Therapeutic Range: 1.7-2.2 INR: 1.5 Drawn by: [facility] ?? PHONE: [phone] ??FAX: [phone] Coumadin dosing was given, accurately repeated and understood by the patient. Next INR: 12/28/17 Patient presents with no signs of bleeding [...] 9:15 AM EDT Office Visit Dermatology at [facility] [address] [place] [address] Dawson Broderick MD [facility] [place] [address] 07/23/2024 9:30 AM EDT Office Visit Dermatology at [facility] [address] [place] [address] Dawson Broderick MD [facility] [place] [address] documented as of this encounter Procedures Procedure Name Priority Date/Time Associated Diagnosis Comments EXTERNAL LAB HEMATOLOGY/COAG RESULTS PANEL Routine 12/25/2017 documented in this encounter Results * (ABNORMAL) Hematology / Coag External Results (12/25/2017) POC INR 1.5(A) 0.9 - 1.1 12/25/2017 Historical Provider HEMATOLOGY ORDERA BLES documented in this encounter Visit Diagnoses Diagnosis Recurrent dislocation, right hip documented in this encounter Care Teams Tractor Driver Relationship Specialty Start Date End Date Phoenix Guzmán DO [address] [place] [address] [place] [phone] PCP - General General Internal Medicine 02/20/15 documented as of this encounter
--- OUTSIDE RECORDS SUMMARY | 2023-10-23 09:05 | XMS_ITS | Encounter Summary ---
[place] [address] Care Team Providers Care Toolroom Clerk Name Role Phone Phoenix Guzmán DO Primary Care Provider [phone] Encounter Details Date Type Department Care Team (Late st Contact Info) Description 12/03/2017 Telephone [place] [address] Gunnar Couch MD [facility] [place] [address] Social History Tobacco Use Types Packs/Day Years [...] encounter Miscellaneous Notes * Telephone Encounter - Gunnar Couch MD - 12/03/2017 2:48 PM EDT [facility] Gunnar Morin. Mr. Morin is status post right total hip arthroplasty revision on 12/01/[address] Hanna. He is on Coumadin for DVT prophylaxis. Slime was calling to report an INR today of 1.2. He took 5 mg of Coumadin yesterday. Given that he is on postoperative day 2, I recommended that he continues to take 5 mg of Coumadin today and tomorrow, with a recheck of the INR on 12/05/17. Slime confirmed the plan and had no questions. documented in this encounter Plan of Treatment Upcoming Encounters Date Type Department Care Team (Late st Contact Info) Description 10/31/2023 9:15 AM EDT Office Visit Dermatology at [facility] [address] [place] [address] Dawson Broderick MD [facility] [place] [address] 07/23/2024 9:30 AM EDT Office Visit [facility] [address] [place] [address] Dawson Broderick MD [facility] [place] [address] documented as of this encounter Visit Diagnoses Not on filedocumented in this encounter Care Teams Toolroom Clerk Relationship Specialty Start Date End Date Phoenix Guzmán DO [address] [place] [address] [place] [address] PCP - General General Internal Medicine 02/20/15 documented as of this encounter
--- OUTSIDE RECORDS SUMMARY | 2023-10-23 09:05 | XMS_ITS | Encounter Summary ---
[place] [address] Care Team Providers Care Silverware Supervisor Name Role Phone Phoenix Guzmán DO Primary Care Provider [phone] Encounter Details Date Type Department Care Team (Late st Contact Info) Description 09/12/2019 Orders [place] [address] Walter Rae MD [facility] [place] [address] Status post total left knee replacement Social History Tobacco Use Types Packs/Day [...] 9:15 AM EDT Office Visit Dermatology at [facility] [address] [place] [address] Dawson Broderick MD [facility] [address] [place] [address] 07/23/2024 9:30 AM EDT Office Visit Dermatology at [facility] [address] [place] [id number] Dawson Broderick MD [facility] [address] [place] [address] documented as of this encounter Results * XR Fluoro Guided Joint Aspiration Large Left (09/12/2019 10:10 AM EDT) Anatomical Region Laterality Modality Left Radio Fluoroscop y Addenda Addendum by Saul Alan MD on 09/13/2019 10:18 AM EDT --------ADDENDUM #1-------- CLINICAL HISTORY: Pain and swelling in left knee. Thank you for letting us participate in the care of this patient. For questions regarding this report, please contact the number below. ? --------ORIGINAL REPORT -------- LEFT KNEE ASPIRATION UNDER FLUOROSCOPY CLINICAL HISTORY: ?sept left knee page carolee 4718 for pickup TECHNIQUE: After an extensive conversation with the patient regarding risks and benefits, oral and written consent were obtained for aspiration and separate consent for Synovasure laboratory testing. A pre- procedural time-out was performed as per [facility] protocol. The patient was placed supine on the fluoroscopic table. ??The left knee was prepped and draped in the usual aseptic manner. 1% Lidocaine was used to achieve local anesthesia. Under fluoroscopic guidance, a 20-gauge, 3.5 spinal needle was advanced into the joint space. Straw-colored fluid returned. All needles removed at end of procedure. FINDINGS: 75 ml of straw-colored fluid aspirated, sent for culture, sensitivity, gram stain and cell count. Separate Synovasure vacuum tube was also sent. MEDICATIONS: Lidocaine 1% - <5 ml, for subcutaneous anesthesia Fluoroscopy time: 0.2 minutes COMPLICATIONS: None immediate. POST-PROCEDURE CARE: Instructions on monitor of infection, management of post procedure pain were reviewed with patient. IMPRESSION: Left knee aspiration. 75 cc of straw-colored fluid removed. Resident/Fellow: Ad Mejia Attending: Saul Alan next I, Dr. Saul Alan, was present for the entire procedure. I have personally reviewed the image(s) and the resident's interpretation and agree with the findings, Saul Alan at 09/12/2019 10:33 AM Thank you for letting us participate in the care of this patient. For questions regarding this report, please contact the number below. ? Addendum by Saul Alan MD on 09/13/2019 10:09 AM EDT --------ADDENDUM #1-------- CLINICAL HISTORY: Pain and swelling in left knee. --------ORIGINAL REPORT -------- LEFT KNEE ASPIRATION UNDER FLUOROSCOPY CLINICAL HISTORY: ?sept left knee page carolee 4971 for pickup TECHNIQUE: After an extensive conversation with the patient regarding risks and benefits, oral and written consent were obtained for aspiration and separate consent for Synovasure laboratory testing. A pre- procedural time-out was performed as per [facility] protocol. The patient was placed supine on the fluoroscopic table. ??The left knee was prepped and draped in the usual aseptic manner. 1% Lidocaine was used to achieve local anesthesia. Under fluoroscopic guidance, a 20-gauge, 3.5 spinal needle was advanced into the joint space. Straw-colored fluid returned. All needles removed at end of procedure. FINDINGS: 75 ml of straw-colored fluid aspirated, sent for culture, sensitivity, gram stain and cell count. Separate Synovasure vacuum tube was also sent. MEDICATIONS: Lidocaine 1% - <5 ml, for subcutaneous anesthesia Fluoroscopy time: 0.2 minutes COMPLICATIONS: None immediate. POST-PROCEDURE CARE: Instructions on monitor of infection, management of post procedure pain were reviewed with patient. IMPRESSION: Left knee aspiration. 75 cc of straw-colored fluid removed. Resident/Fellow: Ad Mejia Attending: Saul Alan next I, Dr. Saul Alan, was present for the entire procedure. I have personally reviewed the image(s) and the resident's interpretation and agree with the findings, Saul Alan at 09/12/2019 10:33 AM Thank you for letting us participate in the care of this patient. For questions regarding this report, please contact the number below. ? Impressions 09/12/2019 10:33 AM EDT Left knee aspiration. 75 cc of straw-colored fluid removed. Resident/Fellow: Ad Mejia Attending: Saul Alan next I, Dr. Saul Alan, was present for the entire procedure. I have personally reviewed the image(s) and the resident's interpretation and agree with the findings, Saul Alan at 09/12/2019 10:33 AM Thank you for letting us participate in the care of this patient. For questions regarding this report, please contact the number below. ? Narrative 09/12/2019 10:33 AM EDT LEFT KNEE ASPIRATION UNDER FLUOROSCOPY CLINICAL HISTORY: ?sept left knee page carolee 1607 for pickup TECHNIQUE: After an extensive conversation with the patient regarding risks and benefits, oral and written consent were obtained for aspiration and separate consent for Synovasure laboratory testing. A pre- procedural time-out was performed as per [facility] protocol. The patient was placed supine on the fluoroscopic table. ??The left knee was prepped and draped in the usual aseptic manner. 1% Lidocaine was used to achieve local anesthesia. Under fluoroscopic guidance, a 20-gauge, 3.5 spinal needle was advanced into the joint space. Straw-colored fluid returned. All needles removed at end of procedure. FINDINGS: 75 ml of straw-colored fluid aspirated, sent for culture, sensitivity, gram stain and cell count. Separate Synovasure vacuum tube was also sent. MEDICATIONS: Lidocaine 1% - <5 ml, for subcutaneous anesthesia Fluoroscopy time: 0.2 minutes COMPLICATIONS: None immediate. POST-PROCEDURE CARE: Instructions on monitor of infection, management of post procedure pain were reviewed with patient. Procedure Note Saul Alan MD - 09/12/2019 LEFT KNEE ASPIRATION UNDER FLUOROSCOPY CLINICAL HISTORY: ?sept left knee page carolee 1792 for pickup TECHNIQUE: After an extensive conversation with the patient regarding risks andbenefits, oral and written consent were obtained for aspiration and separate consentfor Synovasure laboratory testing. A pre- procedural time-out was performed asper [facility] protocol. The patient was placed supine on the fluoroscopic table. The left kneewas prepped and draped in the usual aseptic manner. 1% Lidocaine was used toachieve local anesthesia. Under fluoroscopic guidance, a 20-gauge, 3.5 spinalneedle was advanced into the joint space. Straw-colored fluid returned. Allneedles removed at end of procedure. FINDINGS: 75 ml of straw-colored fluid aspirated, sent for culture, sensitivity,gram stain and cell count. Separate Synovasure vacuum tube was also sent. MEDICATIONS: Lidocaine 1% - <5 ml, for subcutaneous anesthesia Fluoroscopy time: 0.2 minutes COMPLICATIONS: None immediate. POST-PROCEDURE CARE: Instructions on monitor of infection, management ofpost procedure pain were reviewed with patient. IMPRESSION Left knee aspiration. 75 cc of straw-colored fluid removed. Resident/Fellow: Ad Mejia Attending: Saul Alan next I, Dr. Saul Alan, was present for the entire procedure. I have personally reviewed the image(s) and the resident's interpretationand agree with the findings, Saul Alan at 09/12/2019 10:33 AM Thank you for letting us participate in the care of this patient. Forquestions regarding this report, please contact the number below. Electronically signed by: Saul Alan, [facility] ([phone]),at 09/12/2019 10:33 AM Walter Rae MD IMG FLUORO ORDERABLE S * Cell Count Body Fluid Knee, Left (09/12/2019 10:02 AM EDT) Spec Type BF Knee, Left [facility] Color BF Yellow [facility] Appearance BF Slightly Hazy [facility] WBC BF Ct 656 /mcl [facility] Comment: Guideline listed below apply to all body fluids. Differentials on BAL specimens are performed by the Cytology lab section. When Body Fluid WBC count is greater than Zero, a smear is made and scanned. All scan information is correlated with numeric results prior to being released to patients chart. The reference interval(s) and other method performance specifications have not been established for this body fluid. The test result must be integrated into the clinical context for interpretation. Polymorph % 19 % [facility] Comment: Polymorphonuclear cell percent and absolute values may contain Neutrophils, Eosinophils, and Basophils. Body fluid smear will be scanned manually for concordance. Mononuc % 81 % [facility] Comment: Mononuclear cell percent and absolute values may contain Lymphocytes and Monocytes. Body fluid smear will be scanned manually for concordance. Polymorph BF ABS 123 /mcl [facility] Comment: Polymorphonuclear cell percent and absolute values may contain Neutrophils, Eosinophils, and Basophils. Body fluid smear will be scanned manually for concordance. Mononuc ABS 533 /mcl [facility] Comment: Mononuclear cell percent and absolute values may contain Lymphocytes and Monocytes. Body fluid smear will be scanned manually for concordance. Specimen from lower limb (specimen) 09/12/2019 10:02 AM EDT 09/12/2019 10:32 AM EDT Narrative Resulting Agency Comment Spec In Lab Walter Rae MD BODY FLUIDS AND STOO LS ORDERABLES [facility] [place] [address] documented in this encounter Visit Diagnoses Diagnosis Status post total left knee replacement Recurrent dislocation, right hip Status post total left knee replacement documented in this encounter Care Teams Silverware Supervisor Relationship Specialty Start Date End Date Phoenix Guzmán DO [address] [place] [address] [place] [address] PCP - General General Internal Medicine 02/20/15 documented as of this encounter
--- OUTSIDE RECORDS SUMMARY | 2023-10-23 09:05 | XMS_ITS | Encounter Summary ---
[place] [address] Care Team Providers Care Prop Sawyer Name Role Phone Phoenix Guzmán DO Primary Care Provider [phone] Encounter Details Date Type Department Care Team (Latest Contact Info) Description 12/07/2017 Anti-Coag Telephone [place] [address] Gema Antonio RN Recurrent dislocation, right hip Social History [...] as of this encounter Progress Notes * Gema Antonio RN - 12/07/2017 9:47 AM EDT Anticoagulation Therapy Nurse Visit Gunnar Morin 1945 Surgeon: Jacques Ac [facility]: [phone] Indication: DVT Prophylaxis S/P Joint Replacement Duration of Treatment: 30 days ends: After dose on 12/31/17 Therapeutic Range: 1.7-2.2 INR: 1.3 Drawn by: [facility] ?? PHONE: [phone] ??FAX: [phone] Coumadin dosing was given, accurately repeated and understood by the patient. Next INR: 12/11/17 Patient presents with no signs of bleeding [...] 9:15 AM EDT Office Visit Dermatology at [facility] [address] [place] [address] Dawson Broderick MD [facility] [place] [address] 07/23/2024 9:30 AM EDT Office Visit Dermatology at [facility] [address] [place] [address] Dawson Broderick MD [facility] [place] [address] documented as of this encounter Procedures Procedure Name Priority Date/Time Associated Diagnosis Comments EXTERNAL LAB HEMATOLOGY/COAG RESULTS PANEL Routine 12/07/2017 documented in this encounter Results * (ABNORMAL) Hematology / Coag External Results (12/07/2017) POC INR 1.3(A) 0.9 - 1.1 12/07/2017 Historical Provider HEMATOLOGY ORDERA BLES documented in this encounter Visit Diagnoses Diagnosis Recurrent dislocation, right hip documented in this encounter Care Teams Prop Sawyer Relationship Specialty Start Date End Date Phoenix Guzmán DO [address] [place] [address] [place] [address] PCP - General General Internal Medicine 02/20/15 documented as of this encounter
--- OUTSIDE RECORDS SUMMARY | 2023-10-23 09:05 | XMS_ITS | Encounter Summary ---
Author Organization [facility] [place] [address] Care Team Providers Care Natural Science Curator Name Role Phone Phoenix Guzmán Primary Care Provider [phone] Encounter Details Date Type Department Care Team (Latest Contact Info) Description 09/12/2019 8:46 AM EDT - 09/12/2019 11:59 PM EDT Hospital Encounter XRay at [address] [place] [address] Walter Rae MD [facility] [place] [address] Status post total left knee replacement; Recurrent dislocation, right hip Discharge Disposition: Home Social History Tobacco Use [...] on file documented as of this encounter Discharge Instructions * Patient Instructions* Mairposa Paulino - 09/12/2019 10:11 AM EDT Post Injection Patient Instructions You received an injection by DR Alan in the diagnostic section of radiology. Procedure: left knee aspiration In the days following the injection: ??? Low intensity movement and exercise of the affected joint. ??? Avoid movements that worsen pain. During the first 48 hours following the injection you may experience mild discomfort at the injection site. If you experience pain or discomfort in the affected area, do the following: ??? Apply cold compress to the affected area. ??? If allowed by your physician, take an anti-inflammatory medication such as ibuprofen (example: Advil), Acetaminophen 9example: Tylenol) or Aspirin. IMPORTANT The risk of infection exists whenever the skin is punctured. The risk can be minimized by keeping the injection site clean. However, be aware of the following signs of an infection: ??? Redness and swelling at the injection site. ??? Increased pain. ??? Fever and/or chills. ??? Decreased range of motion in the joint near the injection site. If you experience any of the signs of infection listed above, telephone the diagnostic section of radiology at [phone]. documented in this encounter Medications at Time [...] AM EDT Office Visit Dermatology at [facility] [address] [place] [address] Dawson Broderick MD [facility] [place] [address] 07/23/2024 9:30 AM EDT Office Visit Dermatology at [facility] [address] [place] [address] Dawson Broderick MD [facility] [place] [address] documented as of this encounter Procedures Procedure Name Priority Date/Time Associated Diagnosis Comments XR JOINT ASPIRATION - LARGE JOINT LEFT Routine 09/12/2019 10:10 AM EDT Status post total left knee replacement HC GRAM STAIN FOR BACTERIA Routine 09/12/2019 10:02 AM EDT Status post total left knee replacement JOINT CULTURE Routine 09/12/2019 10:02 AM EDT Status post total left knee replacement ANAEROBIC CULTURE Routine 09/12/2019 10: 02 AM EDT Status post total left knee replacement HC FUNGUS CULTURE, MISC SOURCE Routine 09/12/2019 10:02 AM EDT Recurrent dislocation, right hip HC BODY FLUID CELL CT W/DIFF Routine 09/12/2019 10:02 AM EDT Status post total left knee replacement documented in this encounter Results * XR Fluoro Guided [...] CLINICAL HISTORY: ?sept left knee page carolee 0123 for pickup TECHNIQUE: After an extensive conversation with the patient regarding risks and benefits, oral and written consent were obtained for aspiration and separate consent for Synovasure laboratory testing. A pre- procedural time-out was performed as per [facility] protocol. The patient was placed supine on [...] CLINICAL HISTORY: ?sept left knee page carolee 6616 for pickup TECHNIQUE: After an extensive conversation with the patient regarding risks and benefits, oral and written consent were obtained for aspiration and separate consent for Synovasure laboratory testing. A pre- procedural time-out was performed as per [facility] protocol. The patient was placed supine on [...] CLINICAL HISTORY: ?sept left knee page carolee 4991 for pickup TECHNIQUE: After an extensive conversation with the patient regarding risks and benefits, oral and written consent were obtained for aspiration and separate consent for Synovasure laboratory testing. A pre- procedural time-out was performed as per [facility] protocol. The patient was placed supine on [...] CLINICAL HISTORY: ?sept left knee page carolee 2181 for pickup TECHNIQUE: After an extensive conversation with the patient regarding risks andbenefits, oral and written consent were obtained for aspiration and separate consentfor Synovasure laboratory testing. A pre- procedural time-out was performed asper [facility] protocol. The patient was placed supine on [...] number below. Electronically signed by: Saul Alan, [facility] ([phone]),at 09/12/2019 10:33 AM Walter Rae MD IMG FLUORO ORDERABLE S * Anaerobic Culture (09/12/2019 10:02 AM EDT) Anaerobic Culture No anaerobic organisms isolated [facility] Joint fluid specimen (specimen) STRUCTURE OF LEFT KNEE REGION / Unknown 09/12/2019 10:02 AM EDT 09/12/2019 10:45 AM EDT Comment:PLEASE DO GRAM STAIN AND CULTURE. HOLD SPECIMEN FOR 14 DAYS. Narrative Resulting Agency Comment Spec In Lab Walter Rae MD MICROBIOLOGY - GENER AL ORDERABLES Performing Organization Address City/[facility] Co de Phone Number [facility] [place] [address] * Joint Culture (09/12/2019 10:02 AM EDT) Joint Culture No growth at 14 days. [facility] Gram Stain Cytocentrifuge Gram Stain performed No Neutrophils seen. No microorganisms seen. [facility] Joint fluid specimen (specimen) STRUCTURE OF LEFT KNEE REGION / Unknown 09/12/2019 10:02 AM EDT 09/12/2019 10:45 AM EDT Comment:PLEASE DO GRAM STAIN AND CULTURE. HOLD SPECIMEN FOR 14 DAYS. Narrative Resulting Agency Comment Spec In Lab Walter Rae MD MICROBIOLOGY - GENER AL ORDERABLES Performing Organization Address [facility] Co de Phone Number [facility] [place] [address] * Fungus culture Joint (09/12/2019 10:02 AM EDT) Fungus Culture No Fungus isolated [facility] Joint specimen (specimen) 09/12/2019 10:02 AM EDT 09/12/2019 10:46 AM EDT Narrative Resulting Agency Comment Spec In Lab Walter Rae MD MICROBIOLOGY - GENER AL ORDERABLES Performing Organization Address [facility] Co de Phone Number [facility] [place] [address] * Cell Count Body Fluid Knee, Left (09/12/2019 10:02 AM EDT) Spec Type BF Knee, Left [facility] Color BF Yellow [facility] Appearance BF Slightly Hazy [facility] WBC BF Ct 656 /[facility] Comment: Guideline listed below apply to [...] context for interpretation. Polymorph % 19 % [facility] Comment: Polymorphonuclear cell percent and absolute values may contain Neutrophils, Eosinophils, and Basophils. Body fluid smear will be scanned manually for concordance. Mononuc % 81 % [facility] Comment: Mononuclear cell percent and absolute values may contain Lymphocytes and Monocytes. Body fluid smear will be scanned manually for concordance. Polymorph BF ABS 123 /[facility] Comment: Polymorphonuclear cell percent and absolute values may contain Neutrophils, Eosinophils, and Basophils. Body fluid smear will be scanned manually for concordance. Mononuc ABS 533 /[facility] Comment: Mononuclear cell percent and absolute values may contain Lymphocytes and Monocytes. Body fluid smear will be scanned manually for concordance. Specimen from lower limb (specimen) 09/12/2019 10:02 AM EDT 09/12/2019 10:32 AM EDT Narrative Resulting Agency Comment Spec In Lab Walter Rae MD BODY FLUIDS AND STOO LS ORDERABLES [facility] [place] [address] documented in this encounter Visit Diagnoses Diagnosis Status post total left knee replacement Recurrent dislocation, right hip documented in this encounter Administered Medications Inactive Administered Medications - up to 3 most recent administrations Medication Order MAR Action Action Date Dose Rate Site lidocaine (XYLOCAINE) 10 mg/mL (1 %) injection 200 mg 200 mg (20 mL), Subcutaneous, ONCE, 1 dose, On Yara 09/12/19 at 0945, Routine Given 09/12/2019 9:45 AM EDT 200 mg documented in this encounter Care Teams Natural Science Curator Relationship Specialty Start Date End Date Phoenix Guzmán DO [address] [place] [address] [place] [address] PCP - General General Internal Medicine 02/20/15 documented as of this encounter
--- OUTSIDE RECORDS SUMMARY | 2023-10-23 09:05 | XMS_ITS | Encounter Summary ---
Author Organization [facility] [place] [address] Care Team Providers Care Galley Worker Name Role Phone Phoenix Guzmán DO Primary Care Provider [phone] Reason for Visit * Reason Comments Skin Check Encounter Details Date Type Department Care Team (Late st Contact Info) Description 07/19/2018 9:30 AM EDT Office Visit Dermatology at [place] [address] [place] [address] Dawson Broderick MD [facility] DR MYKE [place] [address] History of melanoma; Seborrheic keratoses; Seborrheic dermatitis; Multiple benign nevi Social History Tobacco Use Types Packs/Day Years [...] Progress Notes * Dawson Broderick MD - 07/19/2018 9:30 AM EDT Images from the original note were not included. Gunnar Morin 07/19/2018 [id number] Kandy Broderick MD ([id number]) Chief Problem: 1. Pigmented Lesion and Skin Cancer Examination , Full examination today 2. 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 History: 73 y.o. year old male. Established patient to me. No significant changes in health or medications since last visit. Patient presents to the clinic today for a full skin cancer examination with history as listed above. Specific areas of concern today include red and scaly areas on his face that he has been treating with ketoconazole cream and HC cream 2.5% with no relief. Medications: reviewed All: reviewed Review of Systems: [...] alert, well-appearing and in no noticeable distress. A skin examination was performed. This includes the head, neck, face and scalp including behind the ears. The chest, abdomen, back, and axillae, as well as the arms, hands, palms, fingers. Legs, feet, toes and soles were also examined. Specific findings: 1. History of 1.76mm melanoma (0.79mm original biopsy) located on the penis s/p excision and imiquimod immunotherapy x 12 weeks - No signs of recurrence - Hampton lamp negative - no inguinal adenopathy 2. Seborrheic dermatitis of the face 3. Benign appearing nevi located on the trunk and extremities 4. Seborrheic keratoses located on the trunk and extremities Photos taken with patient consent by Dr. Kandy Broderick. Assessment/Diagnosis: 1. History of melanoma, 1.76mm 2. Seborrheic dermatitis 3. Benign appearing nevi, patient reassured 4. Seborrheic keratoses, patient reassured Prescription: 1. Rx: Tacrolimus 0.1% ointment (30g) - Apply to affected areas on the face daily as needed. Treatment/Plan: Discussion - Spent over half of this visit discussing pathophysiology and the diagnosis, and counselling this patient on treatment options, expectations and follow-up plan. - Specifically discussed: 1. Sun avoidance re-emphasized, sunscreen, hats, clothing as always. 2. Combined decision to treat seborrheic dermatitis of the face with Protopic. Provided patient with GoodRx card and printed script. 3. Combined decision to continue 6 month skin exams. Follow up: 6 months for skin cancer exam, sooner if needed. I am documenting this encounter acting as the scribe for and in the presence of Dr. Broderick,Oneida Leyva LPN and Cait Brandon. I performed the above scribed service and agree with the accuracy of the documentation in this encounter, MD Kandy Carmona M.D. Section of Dermatology documented in this encounter Plan of Treatment Upcoming Encounters Date Type Department Care Team (Late st Contact Info) Description 10/31/2023 9:15 AM EDT Office Visit Dermatology at [facility] [address] [place] [address] Dawson Broderick MD [facility] [place] [address] 07/23/2024 9:30 AM EDT Office Visit Dermatology at [facility] [address] [place] [address] Dawson Broderick MD [facility] [place] [address] documented as of this encounter Visit Diagnoses Diagnosis History of melanoma Personal history of malignant melanoma of skin Seborrheic keratoses Other seborrheic keratosis Seborrheic dermatitis Seborrheic dermatitis, unspecified Multiple benign nevi Benign neoplasm of skin, site unspecified documented in this encounter Care Teams Galley Worker Relationship Specialty Start Date End Date Phoenix Guzmán DO [address] [place] [address] [place] [address] PCP - General General Internal Medicine 02/20/15 documented as of this encounter
--- OUTSIDE RECORDS SUMMARY | 2023-10-23 09:05 | XMS_ITS | Encounter Summary ---
[place] [address] Care Team Providers Care Manager Case Name Role Phone Phoenix Guzmán DO Primary Care Provider [phone] Reason for Visit * Reason Comments Follow-up S/P R TKA DOS 6.21.1 7. S/P L TKA 6.6.16 L KNEE ASPIRATION Encounter Details Date Type Department Care Team (Late st Contact Info) Description 09/12/2019 10:40 AM EDT Office [place] [address] Walter Rae MD [facility] [place] [address] Status post total left knee replacement; Pain in extremity, unspecified extremity Social History Tobacco Use Types Packs/Day Years [...] Sign Reading Time Taken Comments Blood Pressure 130/71 09/12/2019 10:30 AM EDT Pulse 71 09/12/2019 10:30 AM EDT Temperature - - Respiratory Rate - - Oxygen Saturation - - Inhaled Oxygen Concentration - - Weight 132 kg (291 lb) 09/12/2019 10:30 AM EDT w eighed Height 182.9 cm (6') 09/12/2019 10:30 AM EDT rep orted Body Mass Index 39.47 09/12/2019 10:30 AM EDT documented in this encounter Progress Notes * Walter Rae MD - 09/12/2019 10:40 AM EDT History present was: Patient is a 74-year-old male well-known to me for bilateral knee replacements. He notes that his left knee was doing well to about 4 months ago when he started evolving pain. Henotes intermittent periods where he has sitting sharp pain in the area of the tibia. He has had swelling. He notes swelling in the back of the knee. However, over the last week his knee is improved somewhat. He comes today for aspiration. He has had inflammatory markers that are relatively normal in the past. A bone scan which showed potential loose tibial component on the left side. His right knee is functioning well. His aspiration was performed today with 60 cc of fluid that looks like beer. Exam: See no apparent distress Ambulates without antalgic gait. Knee incision is well-healed without erythema. He does have some fluid within the knee. He comes to full extension and flexes to 120 degrees. The knee is stable to varus valgus stress at 0, 30, 90 use of flexion. His distal neurovascular is baseline. X-rays of bone scan reviewed showing potential loose tibial component on the left side. Joint aspiration is pending. Assessment/plan: 74-year-old male with intermittently painful left knee starting 4 months ago. He is about 4 years out from his total knee at this point. At this point, I think he has a loose tibial component. Ruling out infection with aspiration today. Patient would like to be tentatively put on the schedule for revision tibial component. I discussed that he could cancel this at any time if he like to. Pending his aspiration results we will decide on whether we need to move forward with revision surgery. I discussed with him preop by his PCP and labs in [facility]. He does not need to come to see me I obtained consent today. documented in this encounter Plan of Treatment Upcoming Encounters Date Type Department Care Team (Late st Contact Info) Description 10/31/2023 9:15 AM EDT Office Visit Dermatology at [facility] [address] [place] [address] Dawson Broderick MD [facility] DR MYKE [place] [address] 07/23/2024 9:30 AM EDT Office Visit Dermatology at [facility] [address] [place] [address] Dawson Broderick MD [facility] [place] [address] documented as of this encounter Procedures Procedure Name Priority Date/Time Associated Diagnosis Comments TOTAL KNEE REVISION ARTHROPLASTY, COMPLETE Routine 09/12/2019 11:38 AM EDT Status post total left knee replacement LAB SCAN 09/12/2019 12:00 AM EDT documented in this encounter Results * XR Knee Standing Alignment AP Lat [place] Left (01/23/2020 8:48 AM EDT) Anatomical Region Laterality Modality Knee Left Digital Radiogra phy Impressions 01/23/2020 2:16 PM EDT 1. ??Right total knee arthroplasty without hardware complication. 2. ??Resolution of early postsurgical air around the revised left total knee arthroplasty. 3. ??Increased prepatellar soft tissue edema of left knee 4. ??Near midline bilateral weight bearing axis.. Preliminary report signed by: zEekiel Hughes at 01/23/2020 2:00 PM I have personally reviewed the image(s) and the resident's interpretation and agree with the findings, Page Butt MD at 01/23/2020 2:16 PM Thank you for letting us participate in the care of this patient. For questions regarding this report, please contact the number below. ? Narrative 01/23/2020 2:16 PM EDT EXAMINATION: XR [...] below. Walter Rae MD IMG DX ORDERABLES * SCAN DOC: LAB (09/12/2019 12:00 AM EDT) Narrative 09/12/2019 12:00 AM EDT Ordered by an unspecified provider. 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
--- OUTSIDE RECORDS SUMMARY | 2023-10-23 09:05 | XMS_ITS | Encounter Summary ---
Author Organization [facility] [place] [address] Care Team Providers Care Home Paraprofessional Name Role Phone Phoenix Guzmán DO Primary Care Provider [phone] Encounter Details Date Type Department Care Team (Latest Contact Info) Description 01/08/2018 9:50 AM EDT - 01/08/2018 11:59 PM EDT Hospital Encounter XRay at [address] [place] [address] Italo Hanna MD [facility] [place] [address] Instability of hip joint, right; Debility; Pain in extremity, unspecified extremity Discharge Disposition: Home Social History Tobacco Use [...] 9:15 AM EDT Office Visit Dermatology at [facility] [address] [place] [address] Dawson Broderick MD [facility] [address] MY[address] [place] [address] 07/23/2024 9:30 AM EDT Office Visit Dermatology at [facility] [address] [place] [address] Dawson Broderick MD [facility] [place] [address] documented as of this encounter Procedures Procedure Name Priority Date/Time Associated Diagnosis Comments XR PELVIS AND HIP 2 VIEWS RIGHT Routine 01/08/2018 9:59 AM EDT Instability of hip joint, right Debility Pain in extremity, unspecified extremity documented in this encounter Results * XR Pelvis w AP & Lat Hip Right (01/08/2018 9:59 AM EDT) Anatomical Region Laterality Modality Pelvis, Hip Right Digital Radiogra phy Impressions 01/08/2018 11:40 AM EDT Status post revision right total hip arthroplasty without evidence of interval complication. I have personally reviewed the image(s) and the residents interpretation and agree with the findings, Isa Pimentel at 01/08/2018 11:40 AM Narrative 01/08/2018 11:40 AM EDT EXAMINATION: XR PELVIS W AP AND LAT HIP RIGHT CLINICAL HISTORY: History of hip replacement, with revision arthroplasty done on 12/01/2017. TECHNIQUE: AP pelvis and frontal and lateral radiograph of the right hip. COMPARISON: AP pelvis 12/01/2017, CT right hip 10/12/2017 and prior radiographs 07/25/2017. FINDINGS: Status post revision of right total hip arthroplasty. No periprosthetic fractures or lucencies. The alignment is unchanged. Redemonstrated are degenerative changes of the left hip joint with eccentric joint space narrowing. Additionally, the visualized degenerative changes of the pubic symphysis and bilateral SI joints. Multiple surgical michoacano projecting over the bilateral groins. Procedure Note Isa Pimentel MD - 01/08/2018 EXAMINATION: XR PELVIS W AP AND LAT HIP RIGHT CLINICAL HISTORY: History of hip replacement, with revision arthroplastydone on 12/01/2017. TECHNIQUE: AP pelvis and frontal and lateral radiograph of the right hip. COMPARISON: AP pelvis 12/01/2017, CT right hip 10/12/2017 and prior radiographs07/25/2017. FINDINGS: Status post revision of right total hip arthroplasty. No periprosthetic fractures or lucencies. The alignment is unchanged. Redemonstrated are degenerative changes of the left hip joint witheccentric joint space narrowing. Additionally, the visualized degenerative changesof the pubic symphysis and bilateral SI joints. Multiple surgical michoacano projecting over the bilateral groins. IMPRESSION Status post revision right total hip arthroplasty without evidence ofinterval complication. I have personally reviewed the image(s) and the residents interpretationand agree with the findings, Isa Pimentel at 01/08/2018 11:40 AM Italo Hanna MD IMG DX ORDERABLES documented in this encounter Visit Diagnoses Diagnosis Instability of hip joint, right Debility Debility, unspecified Pain in extremity, unspecified extremity documented in this encounter Care Teams Home Paraprofessional Relationship Specialty Start Date End Date Phoenix Guzmán DO [address] [place] [address] [place] [phone] PCP - General General Internal Medicine 02/20/15 documented as of this encounter
--- OUTSIDE RECORDS SUMMARY | 2023-10-23 09:05 | XMS_ITS | Encounter Summary ---
[place] [address] Care Team Providers Care Inspector Repairer Sandstone Name Role Phone Phoenix Guzmán DO Primary Care Provider [phone] Encounter Details Date Type Department Care Team (Latest Contact Info) Description 12/28/2017 Anti-Coag [place] [address] Gema Antonio RN Recurrent dislocation, right hip [...] Progress Notes * Gema Antonio RN - 12/28/2017 10:30 AM EDT Anticoagulation Therapy Nurse Visit [facility] 1945 Surgeon: Jacques [facility]: [phone] Indication: DVT Prophylaxis S/P Joint Replacement Duration of Treatment: 30 days ends: After dose on 12/31/17 Therapeutic Range: 1.7-2.2 INR: 1.5 Drawn by: [facility] ?? PHONE: [phone] ??FAX: [phone] Coumadin dosing was given, accurately repeated and understood by the patient. Next INR: N/A last dose 12/31 Patient presents with no signs of bleeding [...] 9:15 AM EDT Office Visit Dermatology at [facility] [address] [place] [address] Dawson Broderick MD [facility] [place] [address] 07/23/2024 9:30 AM EDT Office Visit Dermatology at [facility] [address] [place] [address] Dawson Broderick MD [facility] [place] [address] documented as of this encounter Procedures Procedure Name Priority Date/Time Associated Diagnosis Comments EXTERNAL LAB HEMATOLOGY/COAG RESULTS PANEL Routine 12/28/2017 documented in this encounter Results * (ABNORMAL) Hematology / Coag External Results (12/28/2017) POC INR 1.5(A) 0.9 - 1.1 12/28/2017 Historical Provider HEMATOLOGY ORDERA BLES documented in this encounter Visit Diagnoses Diagnosis Recurrent dislocation, right hip documented in this encounter Care Teams Inspector Repairer Sandstone Relationship Specialty Start Date End Date Phoenix Guzmán DO [address] [place] [address] [place] [address] PCP - General General Internal Medicine 02/20/15 documented as of this encounter
--- OUTSIDE RECORDS SUMMARY | 2023-10-23 09:05 | XMS_ITS | Encounter Summary ---
[place] [address] Care Team Providers Care Nuclear Unit Operator Name Role Phone Phoenix Guzmán DO Primary Care Provider [phone] Encounter Details Date Type Department Care Team (Latest Contact Info) Description 12/11/2017 Anti-Coag Telephone [place] [address] Gema Antonio RN Recurrent dislocation, right hip [...] Progress Notes * Gema Antonio RN - 12/11/2017 9:14 AM EDT Anticoagulation Therapy Nurse Visit [facility] 1945 Surgeon: Jacques Ac [facility] Clinic: [phone] Indication: DVT Prophylaxis S/P Joint Replacement Duration of Treatment: 30 days ends: After dose on 12/31/17 Therapeutic Range: 1.7-2.2 INR: 1.5 Drawn by: [facility] ?? PHONE: [phone] ??FAX: [phone] Coumadin dosing was given, accurately repeated and understood by the patient. Next INR: 12/14/17 Patient presents with no signs of bleeding [...] 9:15 AM EDT Office Visit Dermatology at [facility] [address] [place] [address] Dawson Broderick MD [facility] [address] 07/23/2024 9:30 AM EDT Office Visit Dermatology at [facility] [address] [place] [address] Dawson Broderick MD [facility] [place] [address] documented as of this encounter Procedures Procedure Name Priority Date/Time Associated Diagnosis Comments EXTERNAL LAB HEMATOLOGY/COAG RESULTS PANEL Routine 12/11/2017 documented in this encounter Results * (ABNORMAL) Hematology / Coag External Results (12/11/2017) POC INR 1.5(A) 0.9 - 1.1 12/11/2017 Historical Provider HEMATOLOGY ORDERA BLES documented in this encounter Visit Diagnoses Diagnosis Recurrent dislocation, right hip documented in this encounter Care Teams Nuclear Unit Operator Relationship Specialty Start Date End Date Phoenix Guzmán DO [address] [place] [address] [place] [phone] PCP - General General Internal Medicine 02/20/15 documented as of this encounter
--- OUTSIDE RECORDS SUMMARY | 2023-10-23 09:05 | XMS_ITS | Encounter Summary ---
[place] [address] Care Team Providers Care Vertical Borer Name Role Phone RamirezPhoenix Susan MCDOWELL Primary Care Provider [phone] Reason for Visit * Diagnostic Test (Routine) - Closed Specialty Diagnoses / Procedures Referred By Omid shepherd Referred To Contact Radiology Diagnoses Status post total left knee replacement Procedures NM Bone Scan 3 Phase Walter Rae MD [facility]THOP[facility] [place] [address] [place] [address] Referral ID Status Reason Start Date Expiration Date V isits Requested Visits Authorized [id number] Closed Specialty Service Requested 08/08/2019 02/07/2021 2 2 Encounter Details Date Type Department Care Team (Latest Contact Info) Description 08/16/2019 10:36 AM EDT - 08/16/2019 11:59 PM EDT Hospital Encounter [place] [address] Walter aRe MD [facility] ORTHOPAEDIC [place] [address] Discharge Disposition: Home Social History Tobacco Use [...] 9:15 AM EDT Office Visit Dermatology at [facility] [address] [place] [address] Dawson Broderick MD [facility] DR MYKE HILTON-[place] [address] 07/23/2024 9:30 AM EDT Office Visit Dermatology at [facility] [address] [place] [address] Dawson Broderick MD [facility] DR MYKE HILTON[facility] [address] documented as of this encounter Procedures Procedure Name Priority Date/Time Associated Diagnosis Comments NM BONE SCAN 3 PHASE Routine 08/16/2019 11:02 AM EDT Status post total left knee replacement documented in this encounter Results * NM Bone Scan 3 Phase (08/16/2019 11:02 AM EDT) Anatomical Region Laterality Modality Nuclear Medicine Impressions 08/16/2019 3:09 PM EDT Focally increased tracer uptake on the medial side of the left tibial tray, highly suggestive of loosening. I have personally reviewed the image(s) and the resident's interpretation and agree with the findings, Eladio Balderas at 08/16/2019 3:09 PM Thank you for letting us participate in the care of this patient. For questions regarding this report, please contact the number below. ? Narrative 08/16/2019 3:09 PM EDT EXAMINATION: NM BONE SCAN 3 PHASE CLINICAL HISTORY: Knee replaced, loosening suspected ? IMPLANT LOOSENING S/P TKA TECHNIQUE: Immediately following the intravenous administration of 25.0 mCi of Tc-99m MDP, sequential images of perfusion to the bilateral knees were obtained at 2 second intervals for 60 seconds in the anterior and posterior projections. Five minutes later, blood pool images were obtained of the bilateral knees in the anterior, posterior, and lateral projections. Three hours later, a bone scan of the bilateral knees was performed with images obtained in the anterior, posterior, and lateral projections. COMPARISON: Bilateral knee radiographs 08/08/2019 FINDINGS: Bilateral total knee arthroplasties are present. Early flow and blood pool phase images show a small area of soft tissue hyperemia overlying the left medial tibial tray. Delayed bone phase images show focally increased tracer uptake on the medial side of the left tibial tray. No other significant periprosthetic activity. Procedure Note Eladio Balderas MD - 08/16/2019 EXAMINATION: NM BONE SCAN 3 PHASE CLINICAL HISTORY: Knee replaced, loosening suspected ? IMPLANT LOOSENING S/P TKA TECHNIQUE: Immediately following the intravenous administration of 25.0 mCi of Tc-99mMDP, sequential images of perfusion to the bilateral knees were obtained at 2second intervals for 60 seconds in the anterior and posterior projections. Five minutes later, blood pool images were obtained of the bilateral kneesin the anterior, posterior, and lateral projections. Three hours later, a bone scan of the bilateral knees was performed withimages obtained in the anterior, posterior, and lateral projections. COMPARISON: Bilateral knee radiographs 08/08/2019 FINDINGS: Bilateral total knee arthroplasties are present. Early flow and blood pool phase images show a small area of soft tissue hyperemia overlying the left medial tibial tray. Delayed bone phase images show focally increased tracer uptake on themedial side of the left tibial tray. No other significant periprostheticactivity. IMPRESSION Focally increased tracer uptake on the medial side of the left tibialtray, highly suggestive of loosening. I have personally reviewed the image(s) and the resident's interpretationand agree with the findings, Eladio Balderas at 08/16/2019 3:09 PM Thank you for letting us participate in the care of this patient. Forquestions regarding this report, please contact the number below. Walter Rae MD [facility] [place] ORDERABLES documented in this encounter Visit Diagnoses Not on filedocumented in this encounter Care Teams Vertical Borer Relationship Specialty Start Date End Date Phoenix Guzmán DO [address] [place] [address] [place] [phone] PCP - General General Internal Medicine 02/20/15 documented as of this encounter
--- OUTSIDE RECORDS SUMMARY | 2023-10-23 09:05 | XMS_ITS | Encounter Summary ---
[place] [address] Care Team Providers Care Bung Driver Name Role Phone Phoenix Guzmán DO Primary Care Provider [phone] Encounter Details Date Type Department Care Team (Latest Contact Info) Description 12/05/2017 Anti-Coag Telephone [place] [address] Gema Antonio RN Recurrent dislocation, right hip [...] Progress Notes * Gema Antonio RN - 12/05/2017 1:21 PM EDT Anticoagulation Therapy Nurse Visit Gunnar Morin 1945 Surgeon: [facility]: [phone] Indication: DVT Prophylaxis S/P Joint Replacement Duration of Treatment: 30 days ends: After dose on 12/31/17 Therapeutic Range: 1.7-2.2 INR: 1.1 Drawn by: [facility] ?? PHONE: [phone] ??FAX: [phone] Coumadin dosing was given, accurately repeated and understood by the patient. Next INR: 12/07/17 Patient presents with no signs of bleeding [...] [facility] [address] [place] [address] [facility] [place] [address] 07/23/2024 9:30 AM EDT Office Visit Dermatology at [facility] [address] [place] [address] [facility] [place] [address] documented as of this encounter Procedures Procedure Name Priority Date/Time Associated Diagnosis Comments EXTERNAL LAB HEMATOLOGY/COAG RESULTS PANEL Routine 12/05/2017 documented in this encounter Results * Hematology / Coag External Results (12/05/2017) POC INR 1.1 0.9 - 1.1 12/05/2017 Historical Provider HEMATOLOGY ORDERA BLES documented in this encounter Visit Diagnoses Diagnosis Recurrent dislocation, right hip documented in this encounter Care Teams Bung Driver Relationship Specialty Start Date End Date Phoenix Guzmán DO [address] [place] [address] [place] [id number] PCP - General General Internal Medicine 02/20/15 documented as of this encounter
--- OUTSIDE RECORDS SUMMARY | 2023-10-23 09:05 | XMS_ITS | Encounter Summary ---
[place] [address] Care Team Providers Care Histologist Name Role Phone Phoenix Guzmán DO Primary Care Provider [phone] Encounter Details Date Type Department Care Team (Latest Contact Info) Description 12/18/2017 Anti-Coag [place]phone [place] [address] Magaly العراقي, RN Recurrent dislocation, right hip [...] Progress Notes * Magaly العراقي, RN - 12/18/2017 1:03 PM EDT Anticoagulation Therapy Nurse Visit Gunnar Morin 1945 Surgeon: Jacques [facility]: [phone] Indication: DVT Prophylaxis S/P Joint Replacement Duration of Treatment: 30 days ends: After dose on 12/31/17 Therapeutic Range: 1.7-2.2 INR: 2.3 Drawn by: [facility] ?? PHONE: [phone] ??FAX: [phone] Coumadin dosing was given, accurately repeated and understood by the patient. Next INR: 12/21/17 Patient presents with no signs of bleeding [...] AM EDT Office Visit Dermatology at [facility] [address] [place] [address] Dawson Broderick MD [facility] [place] [address] 07/23/2024 9:30 AM EDT Office Visit Dermatology at [facility] [address] [place] [address] Dawson Broderick MD [facility] [place] [place] [address] documented as of this encounter Procedures Procedure Name Priority Date/Time Associated Diagnosis Comments EXTERNAL LAB HEMATOLOGY/COAG RESULTS PANEL Routine 12/18/2017 documented in this encounter Results * (ABNORMAL) Hematology / Coag External Results (12/18/2017) POC INR 2.3(A) 0.9 - 1.1 12/18/2017 Historical Provider HEMATOLOGY ORDERA BLES documented in this encounter Visit Diagnoses Diagnosis Recurrent dislocation, right hip documented in this encounter Care Teams Histologist Relationship Specialty Start Date End Date Phoenix Guzmán DO [address] [place] [address] [place] [phone] PCP - General General Internal Medicine 02/20/15 documented as of this encounter
--- OUTSIDE RECORDS SUMMARY | 2023-10-23 09:05 | XMS_ITS | Encounter Summary ---
[place] [address] Care Team Providers Care Product Management Analyst Name Role Phone Phoenix Guzmán DO Primary Care Provider [phone] Encounter Details Date Type Department Care Team (Latest Contact Info) Description 12/14/2017 Anti-Coag Telephone [place] [address] Gema Antonio RN Recurrent dislocation, right hip [...] Progress Notes * Gema Antonio RN - 12/14/2017 4:34 PM EDT Anticoagulation Therapy Nurse Visit Gunnar Morin 1945 Surgeon: Jacques [facility]: [phone] Indication: DVT Prophylaxis S/P Joint Replacement Duration of Treatment: 30 days ends: After dose on 12/31/17 Therapeutic Range: 1.7-2.2 INR: 1.6 Drawn by: [facility] ?? PHONE: [phone] ??FAX: [phone] Coumadin dosing was given, accurately repeated and understood by the patient. Next INR: 12/18/17 Patient presents with no signs of bleeding [...] 9:15 AM EDT Office Visit Dermatology at [facility] [address] [place] [address] Dawson Broderick MD [facility] [place] [address] 07/23/2024 9:30 AM EDT Office Visit Dermatology at [facility] [address] [place] [address] Dawson Broderick MD [facility] [place] [address] documented as of this encounter Procedures Procedure Name Priority Date/Time Associated Diagnosis Comments EXTERNAL LAB HEMATOLOGY/COAG RESULTS PANEL Routine 12/14/2017 documented in this encounter Results * (ABNORMAL) Hematology / Coag External Results (12/14/2017) POC INR 1.6(A) 0.9 - 1.1 12/14/2017 Historical Provider HEMATOLOGY ORDERA BLES documented in this encounter Visit Diagnoses Diagnosis Recurrent dislocation, right hip documented in this encounter Care Teams Product Management Analyst Relationship Specialty Start Date End Date Phoenix Guzmán DO [address] [place] [address] [place] [address] PCP - General General Internal Medicine 02/20/15 documented as of this encounter
--- OUTSIDE RECORDS SUMMARY | 2023-10-23 09:05 | XMS_ITS | Encounter Summary ---
[place] [address] Care Team Providers Care Reinforcement Maker Name Role Phone Phoenix Guzmán DO Primary Care Provider [phone] Encounter Details Date Type Department Care Team (Late st Contact Info) Description 08/21/2019 Telephone [place] [address] Walter Rae MD [facility] [place] [address] Social History Tobacco Use Types Packs/Day Years [...] encounter Miscellaneous Notes * Telephone Encounter - Walter Rae MD - 08/21/2019 5:58 PM EDT Reviewed patient's bone scan results by phone. 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 Hisinflammatory markers showed a CRP of 4.5 and a sed rate of 21 less concerning for infection. I discussed her 2 options. One is to live with the loose tibia and watch it routinely every 6 months with x-rays to assure no increasing bone loss. I also discussed potential isolated tibial revision. If he did move for revision I would aspirate his knee sent for Gram stain, culture, cell count, Synovasure. This could potentially be arranged for at [place] through the radiology department. At this point he like to see me back in 5 months with repeat x-rays which I think is reasonable. documented in this encounter Plan of Treatment Upcoming Encounters Date Type Department Care Team (Late st Contact Info) Description 10/31/2023 9:15 AM EDT Office Visit Dermatology at [facility] [address] [place] [address] Dawson Broderick MD [facility] [address] [place] [address] 07/23/2024 9:30 AM EDT Office Visit Dermatology at [facility] [address] [place] [address] Dawson Broderick MD [facility] [place] [address] documented as of this encounter Visit Diagnoses Not on filedocumented in this encounter Care Teams Reinforcement Maker Relationship Specialty Start Date End Date Phoenix Guzmán DO [address] [place] [address] [place] [phone] PCP - General General Internal Medicine 02/20/15 documented as of this encounter
--- OUTSIDE RECORDS SUMMARY | 2023-10-23 09:05 | XMS_ITS | Encounter Summary ---
[place] [address] Care Team Providers Care Pretzel Packer Name Role Phone Phoenix Guzmán DO Primary Care Provider [phone] Reason for Referral * Physical Therapy (Routine) - Specialty Diagnoses / Procedures Referred By Omid shepherd Referred To Contact Physical Therapy Diagnoses History of total hip arthroplasty, right Italo Hanna MD [facility] [place] [address] Referral ID Status Reason Start Date Expiration Date V isits Requested Visits Authorized [id number] Evaluate and Treat 01/08/2018 07/07/2018 12 12 Reason for Visit * Reason Comments Aftercare Of Tjr R ELZBIETA Rev DOS 8 Encounter Details Date Type Department Care Team (Late st Contact Info) Description 01/08/2018 11:00 AM EDT Office [place] [address] Italo Hanna MD [facility] [place] [address] History of total hip arthroplasty, right; Status post total replacement of right hip Social History Tobacco Use Types [...] Sign Reading Time Taken Comments Blood Pressure 130/78 01/08/2018 10:45 AM EDT Pulse 86 01/08/2018 10:45 AM EDT Temperature - - Respiratory Rate - - Oxygen Saturation - - Inhaled Oxygen Concentration - - Weight 127 kg (280 lb) 01/08/2018 10:45 AM EDT Height 182.9 cm (6') 01/08/2018 10:45 AM EDT Body Mass Index 37.97 01/08/2018 10:45 AM EDT documented in this encounter Progress Notes * Ad Menendez MD - 01/08/2018 11:00 AM EDT Arthroplasty/Orthopaedic History: 1. 09/07/2015 S/P Left total knee arthroplasty (Dr. Rae) 2. sp R TKA on 09/21/16 Butch 3. s/p revision R ELZBIETA with head-liner exchange 06/29/16 (Dr. Rae) with dislocation(12/2016) 4. S/p revision RTHA with reclaim and dual mobility 12/01/17 Dr. Hanna HPI: Gunnar Morin is a very pleasant 72 y.o. year-old male and is now 6 weeks post revision right ELZBIETA. The patient has been doing well. No fevers, chills, nausea, vomiting, or symptoms of infection. Gunnar has been ambulating with with the abduction brace in place and is very limited by the brace. He states that he will remove the brace even if we don't recommend it today. He denies any clunkin g or feelings of instability Anticoagulation status: completed Warfarin (goal INR ~2) for 30 days discussed stop date . ROS: Denies: fever, chills, night sweats, nausea, or vomiting BP 130/78 Pulse 86 Ht 182.9 cm (6') Wt 127 kg (280 lb) BMI 37.97 kg/m2 Physical Exam: Well-appearing male in no acute distress. Alert and Oriented x 3 and answers all questions appropriately. The incision is well healed, with no signs of infection. Hip Exam: Right Leg length: Longer leg: equal Limb Length discrepancy: 0cm Motion: Flexion contracture: 0 Total degrees of Flexion:110 Total degrees of Abduction:15 Total degrees of Ext Rotation: 25 Total degrees of Internal Rotation: 20 Gait Abnormality: Normal Pulses Palpable: Right PT: Yes Right DP:Yes Motor/Sensory: Right Distal Motor: Normal Distal Sensory: Normal Hip Abductors 1 Trendelenburg test: negative X-RAYS: Multiple radiographic views were obtained at my request and reviewed with the patient. X-rays show a well-placed prosthesis with no evidence of fracture, subsidence, loosening, or periprosthetic complication. Questionnaire Responses: [facility] Surgical Postop Visit 01/08/2018 PROMIS-10 General Health Very Good PROMIS-10 Quality of Life Very Good PROMIS-10 Physical Health Very Good PROMIS-10 Mental Health Very Good PROMIS-10 Social Activity Good PROMIS-10 Everyday Activities Moderately PROMIS-10 Pain 2 PROMIS-10 Fatigue Mild PROMIS-10 Social Roles Good PROMIS-10 Anxious or Depressed Never PROMIS PHYSICAL HEALTH SCORE 47.7 PROMIS MENTAL HEALTH SCORE 53.3 HOOS JR Scores 61.82 KOOS JR Scores - Problems with surgical [...] Pain in other KNEE - ELZBIETA Grade 8 Pain in other HIP None Back pain at this moment None Satisfaction with Treatment Satisfied Choose Same Treatment Again Probably no Orthopeadics [facility] Response 01/08/2018 HOOS JR Scores 61.82 KOOS JR Scores - Spine [facility] Response 01/08/2018 HOOS JR Scores 61.82 KOOS JR Scores - ASSESSMENT/PLAN: Mr. Morin is a 72 y.o. year old male status post right revision ELZBIETA. He is doing very well without any feeling of instability. He should continue weightbearing as tolerated and working within enhanced precautions and may remove the abduction brace throughout the day for walking or if he is sitting at home, which he agrees to do. We will see him back in 1 years for repeat examination. X-rays will be needed at that time. Patient may return to normal activities as his pain and function allow. We discussed the appropriate precautions surrounding dental prophylaxis; according to the AAOS Appropriate Use Criteria we do not recommend antibiotic use prior to dental procedures for Gunnar. If Gunnar has any changes in health status we recommend he contact our office prior to dental procedures for updated recommendations We also discussed maintaining good foot care and giving prompt attention to any source of infectionthroughout the body including foot ulcers and urinary tract infections. All questions were answered. Signed: Ad Menendez MD 01/08/2018 * Italo Hanna MD - 01/08/2018 11:00 AM EDT Images from the original note were not included. Department of Orthopaedics Division of Adult Joint Reconstructive Surgery January 08, 2018 I had the pleasure of evaluating Gunnar Morin in clinic in conjunction with Dr. Menendez. I have seen the patient and reviewed the history/physical and I agree with the details as written. The assessment and plan were formulated in discussion with me and I agree with them as documented. In brief this is a 72-year-old gentleman who underwent a revision of his right recurrently unstabletotal hip replacement. He was revised to a dual mobility with a large head. He is been placed in anabduction brace postoperatively. He said no sense of instability. He feels his hip to be stable. Hedoes not like his abduction brace and states he will no longer wear it after this visit. I reviewedthe risks associated with recurrent instability. We discussed dynamic and static stabilizers of thehip. I think at this point it is reasonable to wean from the abduction brace. He states he will still use it at times when he is out but he probably stopped using around the house which is been doinganyway. His x- rays show well-positioned components with no evidence of periprostatic complication. We reviewed again the risks associated with instability and potential need for further surgery. I offered him a follow-up at 6 weeks but he thinks will be all right. At this point we will plan to see him back in 1 year with repeat x-rays. If he has any issues he knows to call me. All questions were answered. Italo Hanna MD, MS [facility], Division of Adult Reconstructive Dean Of FacultySenior Assistant Manager of Orthopaedics Department of Orthopaedics [facility] [address] [email or web address] documented in this encounter Plan of Treatment Upcoming Encounters Date Type Department Care Team (Late st Contact Info) Description 10/31/2023 9:15 AM EDT Office Visit Dermatology at [facility] [address] [place] [address] Dawson Broderick MD [facility] [place] [address] 07/23/2024 9:30 AM EDT Office Visit [facility] [address] [place] [address] Dawson Broderick MD [facility] [place] [address] Scheduled Referrals Name Type Priority Associated Diagnoses Orde r Schedule Referral to Physical Therapy Outpatient Referral Routine History of total hip arthroplasty, right Ordered: 01/08/2018 documented as of this encounter Visit Diagnoses Diagnosis History of total hip arthroplasty, 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
--- OUTSIDE RECORDS SUMMARY | 2023-10-23 09:05 | XMS_ITS | Encounter Summary ---
[place] [address] Care Team Providers Care Metallurgical Or Materials Technician Name Role Phone Phoenix Guzmán Primary Care Provider [phone] Reason for Referral * Diagnostic Test (Routine) - Closed Specialty Diagnoses / Procedures Referred By Contac t Referred To Contact Radiology Diagnoses Status post total left knee replacement Procedures NM Bone Scan 3 Phase Walter Rae MD [facility] [place] [address] [place] [address] Referral ID Status Reason Start Date Expiration Date V isits Requested Visits Authorized [id number] Closed Specialty Service Requested 08/08/2019 02/07/2021 2 2 Reason for Visit * Diagnostic Test (Routine) - Closed Specialty Diagnoses / Procedures Referred By Contac t Referred To Contact Radiology Diagnoses Status post total left knee replacement Procedures NM Bone Scan 3 Phase Walter Rae MD [facility] [place] [address] [facility] [place] [address] Referral ID Status Reason Start Date Expiration Date V isits Requested Visits Authorized [id number] Closed Specialty Service Requested 08/08/2019 02/07/2021 2 2 Encounter Details Date Type Department Care Team (Latest Contact Info) Description 08/16/2019 7:27 AM EDT - 08/16/2019 10:35 AM EDT Hospital Encounter [place] [address] Walter Rae MD [facility] [place] [address] Status post total left knee replacement Discharge [...] 9:15 AM EDT Office Visit Dermatology at [facility] [address] [place] [address] Dawson Broderick MD [facility] [place] [address] 07/23/2024 9:30 AM EDT Office Visit Dermatology at [facility] [address] [place] [address] Dawson Broderick MD [facility] [place] [address] documented as of this encounter Procedures Procedure [...] the number below. Walter Rae MD IMG NM ORDERABLES documented in this encounter Visit Diagnoses Diagnosis Status post total left knee replacement documented in this encounter Administered Medications Inactive Administered Medications - up to 3 most recent administrations Medication Order MAR Action Action Date Dose Rate Site technetium (Tc-99m) methylene diphosphonate (MDP) injection 25 mCi 25 mCi, Intravenous, ONCE PRN, 1 dose, Starting on Mon08/16/19 at 0802, Until Mon08/16/19 at 0802, Per Protocol, Routine Given 08/16/2019 8:02 AM EDT 25 mCi Left Arm documented in this encounter Care Teams Metallurgical Or Materials Technician Relationship Specialty Start Date End Date Phoenix Guzmán DO [address] [place] [address] [place] [address] PCP - General General Internal Medicine 02/20/15 documented as of this encounter
--- OUTSIDE RECORDS SUMMARY | 2023-10-23 09:05 | XMS_ITS | Encounter Summary ---
[place] [address] Care Team Providers Care Desktop Support Manager Name Role Phone RamirezPhoenix Susan MCDOWELL Primary Care Provider [phone] Reason for Referral * Diagnostic Test (Routine) - Closed Specialty Diagnoses / Procedures Referred By Omid shepherd Referred To Contact Radiology Diagnoses Status post total left knee replacement Procedures NM Bone Scan 3 Phase Walter Rae MD [facility] [place] [address] [place] [address] Referral ID Status Reason Start Date Expiration Date V isits Requested Visits Authorized [id number] Closed Specialty Service Requested 08/08/2019 02/07/2021 2 2 Reason for Visit * Reason Comments Follow Up Surgery left TKA DOS 09/05/15 - increased swelling, right TKA Encounter Details Date Type Department Care Team (Late st Contact Info) Description 08/08/2019 10:30 AM EDT Office [place] [address] Walter Rae MD [facility] [place] [address] Status post total left knee replacement Social [...] Sign Reading Time Taken Comments Blood Pressure 164/82 08/08/2019 10:26 AM EDT Pulse 78 08/08/2019 10:26 AM EDT Temperature - - Respiratory Rate - - Oxygen Saturation - - Inhaled Oxygen Concentration - - Weight 129.3 kg (285 lb) 08/08/2019 10:26 AM EDT Height 182.9 cm (6') 08/08/2019 10:26 AM EDT Body Mass Index 38.65 08/08/2019 10:26 AM EDT documented in this encounter Progress Notes * Walter Rae MD - 08/08/2019 10:30 AM EDT Interval history: Patient is a 74-year-old male who is well-known to me for bilateral total knee replacements and revision right total hip arthroplasty. His left total knee was performed in September 2015. He noted about 6 months ago he had a episode in which she had sharp medial knee pain that made himalmost fall. Right after that she was able to ambulate without difficulty. Since that time he said intermittent sharp knee pain medially about the proximal tibia. He has had recurrent effusions sincethat time. He was seen by his PCP last week for the swelling and pain. X-rays were performed and lab work was performed. He notes that this was negative for infection. Per report his CRP was normal per his PCPs office. He is able to function quite well although he does have pain and some soreness in the knee. He had no injury prior. His knee was functioning very well up until 3 and half years post replacement. Exam: Sitting no apparent distress Examination of the left knee shows a well-healed midline incision. There is a moderate effusion present. There is no erythema or induration. He is tender over the medial proximal tibia. He comes to full extension his knee is stable to varus and valgus stress. He flexes greater than 110 degrees. Hisknee appears to be stable at 30 degrees and 90 degrees of flexion. His distal neurovascular is grossly intact. 2 views of the knee reviewed today show some mild lucency along the anterior flange of the femur that is been consistent from prior x-rays and some lucency under the medial tibial prosthesis that appears to be somewhat unchanged. There is some sense that there may be some varus shift of the left tibia but this is difficult to determine with different views. Assessment/plan: 74-year-old male with new left knee pain. This is may represent aseptic loosening of his tibial component. It does not appear to be septic loosening. 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 Although his CRP appears to be normal I think would be worth obtaining a sed rate for more chronic inflammation. If his CRP and sed rate are normal I do not think he needs an aspiration. We will move forward with a bone scan to assess for any aseptic loosening. He is in agreement with this plan. At this point will hold off from any further labs. We will discuss the results of thebone scan and make further treatment options. I discussed if he does have an aseptic loosening tibia there are 2 options one is to continue to watch it to be sure that does not shift into significantvarus or valgus if he can tolerate living with it the other option is to discuss revision surgery. documented in this encounter Plan of Treatment Upcoming Encounters Date Type Department Care Team (Late st Contact Info) Description 10/31/2023 9:15 AM EDT Office Visit Dermatology at [facility] [address] [place] [address] Dawson Broderick MD [facility] [place] [address] 07/23/2024 9:30 AM EDT Office Visit Dermatology at [facility] [address] [place] [address] Dawson Broderick MD [facility] [place] [address] documented as of this encounter Procedures Procedure Name Priority Date/Time Associated Diagnosis Comments HC C-REACTIVE PROTEIN STAT 08/08/2019 11:19 AM EDT Status post total left knee replacement HEMOGRAM STAT 08/08/2019 11:19 AM EDT Status post total left knee replacement DIFFERENTIAL, AUTOMATED STAT 08/08/2019 11:19 AM EDT Status post total left knee replacement HC ESR-SEDIMENTATION RATE, BLOOD STAT 08/08/2019 11:19 AM EDT Status post total left knee replacement HC CBC,PLT & AUTO DIFF STAT 08/08/2019 11:19 AM EDT Status post total left knee [...] contact the number below. Electronically signed by: Eladio Balderas [facility]([phone]), at 08/16/2019 3:09 PM Walter Rae MD IMG NM ORDERABLES * Differential, Automated (08/08/2019 11:19 AM EDT) Neutrophils % 55.4 % [facility] Neutr Abs (ANC) 2.90 1.70 - 6.10 x10(3)/[facility] Lymphocytes % 27.0 % [facility] Lymphocytes Abs 1.4 0.9 - 3.2 x10(3)/[facility] Monocytes % 13.2 % [facility] Monocyte Abs 0.7 0.3 - 0.9 x10(3)/[facility] Eosinophils % 2.9 % [facility] Eosinophils Abs 0.2 0.0 - 0.4 x10(3)/[facility] Basophils % 1.1 % [facility] Basophils Abs 0.1 0.0 - 0.1 x10(3)/[facility] Immature Gran % 0.40 % [facility] Comment: Immature granulocytes(IG's)percentage and absolute count will include metamyelocytes, myelocytes, and promyelocytes. Blood smears from CBCs yielding IG's will be scanned manually for concordance. If this scan disagrees with the automated IG or if promyelocytes are noted, a manual differential will be performed. Geovanna Gran Abs 0.02 0.00 - 0.04 x10(3)/[facility] Blood specimen (specimen) 08/08/2019 11:19 AM EDT 08/08/2019 11:24 AM EDT Narrative Resulting Agency Comment Spec In Lab Walter Rae MD HEMATOLOGY ORDERABLE S [facility] [place] [address] * (ABNORMAL) Hemogram (08/08/2019 11:19 AM EDT) WBC 5.2 4.0 - 9.5 x10(3)/[facility] RBC 5.01 4.58 - 5.54 x10(6)/[facility] Hemoglobin 15.9 13.7 - 16.5 gm/dL [facility] Hematocrit 49.2(H) 40.5 - 48.5 % [facility] MCV 98.2(H) 82.9 - 93.1 [facility] MCH 31.7 27.5 - 32.[address] [facility] MCHC 32.3 32.0 - 35.7 gm/dL [facility] Platelets 255 145 - 357 x10(3)/[facility] RDWSD 46.3(H) 36.0 - 45.0 [facility] RDWCV 12.8 11.4 - 13.8 % [facility] MPV 9.6 7.6 - 12.9 [facility] nRBC % Auto 0.0 % [facility] nRBC Abs Auto 0.000 0.000 - 0.000 x10(3)/[facility] Blood specimen (specimen) 08/08/2019 11:19 AM EDT 08/08/2019 11:24 AM EDT Narrative Resulting Agency Comment Spec In Lab Walter Rae MD HEMATOLOGY ORDERABLE S [facility] [place] [address] * Sedimentation rate (08/08/2019 11:19 AM EDT) Sed Rate 21 3 - 46 mm/hr [facility] Comment: Effective March 13, 2019 new capillary photometric technology has resulted in a change in reference ranges. It is recommended that each ESR result be reviewed with its own age appropriate reference range. Blood specimen (specimen) 08/08/2019 11:19 AM EDT 08/08/2019 11:24 AM EDT Narrative Resulting Agency Comment Spec In Lab Walter Rae MD HEMATOLOGY ORDERABLE S Performing Organization Address City/[facility]/ZIP Co de Phone Number [facility] [place] [address] * CRP, acute inflammation (08/08/2019 11:19 AM EDT) CRP 4.5 <=4.9 mg/L [facility] Blood specimen (specimen) 08/08/2019 11:19 AM EDT 08/08/2019 11:24 AM EDT Narrative Resulting Agency Comment Spec In Lab Walter Rae MD CHEMISTRY ORDERABLES Performing Organization Address [facility] [place] [address] documented in this encounter Visit Diagnoses Diagnosis Status post total left knee replacement Status post total left knee replacement documented in this encounter Care Teams Desktop Support Manager Relationship Specialty Start Date End Date Phoenix Guzmán DO [address] [place] [address] [place] [address] PCP - General General Internal Medicine 02/20/15 documented as of this encounter
--- OUTSIDE RECORDS SUMMARY | 2023-10-23 09:05 | XMS_ITS | Encounter Summary ---
[place] [address] Care Team Providers Care Chief Client Officer Name Role Phone Phoenix Guzmán DO Primary Care Provider [phone] Encounter Details Date Type Department Care Team (Late st Contact Info) Description 11/10/2017 Notes [place] [address] Lou Bernard Social History Tobacco Use Types Packs/Day Years [...] encounter Progress Notes * Lou Bernard - 11/10/2017 10:32 AM EDT Office of Care Management Initial Assessment [...] and discharge plans for a [facility] at [facility] as outlined by the outpatient ortho clinic. [facility]. ? Current Functional Ability:? [...] We discussed qualifications to go to a group home facility. We discussed Medicare guidelines for admission into a group home facilityas well as transportation, namely, ambulance and [...] that they will be working with a healthcare project manager after surgery to facilitate the discharge plan. I encouraged the patient to call me with any questions or concerns prior to the surgery as well as when they discharge home. ? Health/Prescription Coverage: ?Primary Insurance:??Medicare A and B ?Secondary Insurance:??[place] ?Prescription Coverage:??BCBS Rx ?Preferred Pharmacy:??[facility] ?[address] ?[place] ?Phone:??[phone] ?Fax:??[phone] ?Other:??None ? Primary Care Provider:??Phoenix Guzmán, DO??[phone] ? Patient/Caregiver Goals of Treatment:??He wants to be able to mow the lawn, cut the wood, play pickle ball, ride the 4 wheelers, etc. ? Potential Needs for Transition of Care:?? Rehab/SNF:??No selection Home Health:??[facility] [address] [place] [address] ?OP PT: [facility] ?DME:??Has a 2- 2 FWW's, crutches, 2 canes, grabbers, sock assist, shoe horn, leg rubber stamp maker, shower chair, and commode. ?Dialysis:??No ?Community Resources:??None [...] transition of care planning. ? Lou Rao Pager:??[phone] ?? documented in this encounter Plan of Treatment Upcoming Encounters Date Type Department Care Team (Late st Contact Info) Description 10/31/2023 9:15 AM EDT Office Visit Dermatology at [facility] [address] [place] [address] Dawson Broderick MD [facility] [place] [address] 07/23/2024 9:30 AM EDT Office Visit Dermatology at [facility] [address] [place] [address] Dawson Broderick MD [facility] [place] [address] documented as of this encounter Visit Diagnoses Not on filedocumented in this encounter Care Teams Chief Client Officer Relationship Specialty Start Date End Date Phoenix Guzmán DO [address] [place] [address] [place] [address] PCP - General General Internal Medicine 02/20/15 documented as of this encounter
--- OUTSIDE RECORDS SUMMARY | 2023-10-23 09:06 | XMS_ITS | Encounter Summary ---
[place] [address] Care Team Providers Care Beverage Specialist Name Role Phone Phoenix Guzmán DO Primary Care Provider [phone] Encounter Details Date Type Department Care Team (Late st Contact Info) Description 10/13/2017 Orders [place] [address] Italo Hanna MD [facility] [place] [address] Instability of hip joint, right; Debility; Pain in extremity, unspecified extremity Social History [...] as of this encounter Progress Notes * Italo Hanna MD - 10/13/2017 1:39 PM EDT I was asked by Dr. Rae to [...] 9:15 AM EDT Office Visit Dermatology at [facility] [address] [place] [address] Dawson Broderick MD [facility] [place] [place] [address] 07/23/2024 9:30 AM EDT Office Visit Dermatology at [facility] [address] [place] [address] Dawson Broderick MD [facility] DR [address] [place] [address] Scheduled Orders Name Type Priority Associated Diagnoses Orde r Schedule TOTAL HIP REVISION ARTHROPLASTY, COMPLETE Procedures Routine One Time for 1 Occurrences starting 10/13/2017 until 10/13/2017 documented as of this encounter Results * EKG 12 Lead (11/09/2017 1:01 PM EDT) Ventricular rate 84 BPM MUSE SYSTEM Atrial Rate 84 BPM MUSE SYSTEM P-R Interval 176 ms MUSE SYSTEM QRS Duration 96 ms MUSE SYSTEM Q-T Interval 362 ms MUSE SYSTEM QTC Calculated (Bezet) 427 ms MUSE SYSTEM Calculated P [place] 51 degrees MUSE SYSTEM Calculated R [place] 38 degrees MUSE SYSTEM Calculated T [place] -17 degrees MUSE SYSTEM INTERPRETATION Normal sinus rhythm Normal ECG When compared with ECG of 23-AUG-2016 09:29, No significant change was found Confirmed by MD [place], Brian Kearns ([id number]) on 11/09/2017 8:31:52 PM MUSE SYSTEM 11/09/2017 1:01 PM EDT 11/09/2017 8:31 PM EDT Italo Hanna MD ECG ORDERABLES MUSE SYSTEM * CRP, acute inflammation (11/09/2017 12:50 PM EDT) Pathologist [facility] CRP 4.4 <=4.9 mg/L [facility] Blood specimen (specimen) 11/09/2017 12:50 PM EDT 11/09/2017 1:04 PM EDT Narrative Resulting Agency Comment Spec In Lab Italo Hanna MD CHEMISTRY ORDERABLE S [facility] [place] [address] * Sedimentation rate (11/09/2017 12:50 PM EDT) Sed Rate 8 0 - 15 mm/hr [facility] Blood specimen (specimen) 11/09/2017 12:50 PM EDT 11/09/2017 1:04 PM EDT Narrative Resulting Agency Comment Spec In Lab Italo Hanna MD HEMATOLOGY ORDERABL ES Performing Organization Address [facility]/ZIP Co de Phone Number [facility] [place] [address] * APTT (11/09/2017 12:50 PM EDT) PTT 29 25 - 37 sec [facility] Comment: The PTT is NOT appropriate for heparin monitoring. Use the Anti-Xa level for heparin monitoring (HEP UFH) or LMWH monitoring (HEP LMW). A PTT less than 37 seconds generally indicates adequate hemostasis. Blood specimen (specimen) 11/09/2017 12:50 PM EDT 11/09/2017 1:04 PM EDT Narrative Resulting Agency Comment Spec In Lab Italo Hanna MD HEMATOLOGY ORDERABL ES Performing Organization Address [facility] de Phone Number [facility] [place] [address] * Prothrombin Time (11/09/2017 12:50 PM EDT) PT 11.3 9.4 - 12.5 sec [facility] INR 1.0 [facility] Comment: An INR <2.0 indicates adequate [...] depending on clinical circumstances. Blood specimen (specimen) 11/09/2017 12:50 PM EDT 11/09/2017 1:04 PM EDT Narrative Resulting Agency Comment Spec In Lab Italo Hanna MD HEMATOLOGY ORDERABL ES Performing Organization Address City/[facility]/ZIP Co de Phone Number [facility] [place] [address] * (ABNORMAL) Basic Metabolic Panel (non-fasting) (11/09/2017 12:50 PM EDT) Glucose Lvl 115 65 - 199 mg/dL [facility] Comment:Diabetes: >=200 mg/d L plus symptoms BUN 18 10 - 20 mg/dL [facility] Creatinine 1.39 0.80 - 1.50 mg/dL [facility] Sodium 142 135 - 145 mmol/L [facility] Potassium 4.9 3.5 - 5.0 mmol/L [facility] Comment: Please note: ??Patients with WBC >100,000 may have falsely elevated Potassium levels. ??For accurate Potassium quantification in these patients send serum separator tube (gold top) for subsequent determinations. ??Contact the Clinical Chemistry Laboratory if there are any questions. Chloride 100 98 - 107 mmol/L [facility] CO2 27 22 - 31 mmol/L [facility] Anion Gap 15 5 - 15 mmol/L [facility] Calcium 9.0 8.5 - 10.5 mg/dL [facility] Estimated GFR 51(L) >=60 mL/min/1. 73 m?? [facility] Comment: The eGFR was calculated using the CKD-EPI equation. As with all creatinine based estimates of kidney function, eGFR values calculated with the CKD-EPI equation are not accurate in patients with acute kidney failure, extremes of body mass or the acutely ill. http://[employer]/[facility]KAnkf eGFR 59(L) >=60 mL/min/1. 73 m?? [facility] Comment: The eGFR was calculated using the CKD-EPI equation. As with all creatinine based estimates of kidney function, eGFR values calculated with the CKD-EPI equation are not accurate in patients with acute kidney failure, extremes of body mass or the acutely ill. http://[employer]/[facility] Blood specimen (specimen) 11/09/2017 12:50 PM EDT 11/09/2017 1:04 PM EDT Narrative Resulting Agency Comment Spec In Lab Italo Hanna MD CHEMISTRY ORDERABLE S Performing Organization Address City/State/[facility] Co de Phone Number [facility] [place] [address] documented in this encounter Visit Diagnoses Diagnosis Instability of hip joint, right Debility Debility, unspecified Pain in extremity, unspecified extremity documented in this encounter Care Teams Beverage Specialist Relationship Specialty Start Date End Date Phoenix Guzmán DO [address] [place] [address] [place] [address] PCP - General General Internal Medicine 02/20/15 documented as of this encounter
--- OUTSIDE RECORDS SUMMARY | 2023-10-23 09:06 | XMS_ITS | Encounter Summary ---
[place] [address] Care Team Providers Care Office Machinery Or Equipment Installer Name Role Phone RamirezPhoenix Susan MCDOWELL Primary Care Provider [phone] Reason for Referral * Diagnostic Test (Routine) - Closed Specialty Diagnoses / Procedures Referred By Omid shepherd Referred To Contact Radiology Diagnoses Chronic right hip pain Procedures CT Hip wo Contrast Right (Generic) [facility] [address] [place] [address] [facility] [address] [place] [address] Referral ID Status Reason Start Date Expiration Date V isits Requested Visits Authorized [id number] Closed Specialty Service Requested 10/09/2017 12/07/2017 1 1 Encounter Details Date Type Department Care Team (Late st Contact Info) Description 08/25/2017 Orders [place] [address] Mary Dueñas, night custodian right hip pain Social History Tobacco Use Types Packs/Day Years [...] 9:15 AM EDT Office Visit Dermatology at [facility] [address] [place] [address] Dawson Broderick MD [facility] [place] [address] 07/23/2024 9:30 AM EDT Office Visit Dermatology at [facility] [address] [place] [address] Dawson Broderick MD [facility] [place] [address] documented as of this encounter Results * CT Hip wo Contrast Right (Generic) (10/12/2017 1:18 PM EDT) Anatomical Region Laterality Modality Hip Right Computed Tomogra phy Narrative 10/12/2017 1:32 PM EDT EXAMINATION: CT HIP WO CONTRAST RIGHT (GENERIC) CLINICAL HISTORY: right hip pain and continued dislocations TECHNIQUE: 0.[address] images of the right hip were acquired. Sagittal and coronal reformats [and 3D models] were created. COMPARISON: Examination from April 2016. FINDINGS: A revised right total hip arthroplasty is present. Alignment: No dislocation. Complication: No periprosthetic fracture. 1. ??Acetabular component - normal alignment. Increased radiodensity in the previously described osteolytic lesion in the acetabulum represents cancellous bone chip packings. No new osteolytic lesion seen. 2. ??Femoral component - the proximal end of the new femoral component is surrounded by well-corticated radiolucencies measuring approximately 13 mm in thickness. The anterior cortex of the greater trochanter remains absent. These osteolytic foci appear similar to the prerevision exam. No new osteolytic lesion or loosening seen. Soft tissues: No collection or soft tissue mass seen. Impression 1. ??Interval revision of right total hip arthroplasty. 2. ??The acetabula osteolytic focus contains considers bone graft material. 3. ??Small osteolytic lesions surrounding the proximal femoral stem is similar to previous and may represent pre-existing osteolytic foci without progression. Procedure Note Page Butt MD - 10/12/2017 EXAMINATION: CT HIP WO CONTRAST RIGHT (GENERIC) CLINICAL HISTORY: right hip pain and continued dislocations TECHNIQUE: 0.[address] images of the right hip were acquired.Sagittal and coronal reformats [and 3D models] were created. COMPARISON: Examination from April 2016. FINDINGS: A revised right total hip arthroplasty is present. Alignment: No dislocation. Complication: No periprosthetic fracture. 1. Acetabular component - normal alignment. Increased radiodensity inthe previously described osteolytic lesion in the acetabulum representscancellous bone chip packings. No new osteolytic lesion seen. 2. Femoral component - the proximal end of the new femoral component is surrounded by well-corticated radiolucencies measuring approximately 13 mmin thickness. The anterior cortex of the greater trochanter remains absent.These osteolytic foci appear similar to the prerevision exam. No new osteolyticlesion or loosening seen. Soft tissues: No collection or soft tissue mass seen. Impression 1. Interval revision of right total hip arthroplasty. 2. The acetabula osteolytic focus contains considers bone graftmaterial. 3. Small osteolytic lesions surrounding the proximal femoral stem issimilar to previous and may represent pre-existing osteolytic foci withoutprogression. Walter Rae MD [facility] CT ORDERABLES documented in this encounter Visit Diagnoses Diagnosis Chronic right hip pain Pain in joint, pelvic region and thigh Chronic right hip pain Pain in joint, pelvic region and thigh documented in this encounter Care Teams Office Machinery Or Equipment Installer Relationship Specialty Start Date End Date Phoenix Guzmán DO [address] [place] [address] [place] [address] PCP - General General Internal Medicine 02/20/15 documented as of this encounter
--- OUTSIDE RECORDS SUMMARY | 2023-10-23 09:06 | XMS_ITS | Encounter Summary ---
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 TO 2.0CM, GENITALIA (WRVU 2.41) BIOPSY OR EXCISION OF LYMPH NODE(S), OPEN, GROIN-TAMMY (WRVU 3.79) INTRAOPERATIVE ID (MAPPING) SENTINEL LYMPH NODE,INCLUDES INJECTION (WRVU 2.5) MODIFIER SENTINEL NODE EXCISION Referral ID Status Reason Start Date Expiration Date Visits Re quested Visits Authorized [id number] 1 1 Encounter Details Date Type Department Care Team (Late st Contact Info) Description 01/19/2017 3:01 PM EDT Anesthesia Event [facility] [place] [phone] Luc Gomez MD [facility] [place] [address] Cameron Dangelo, [facility] [place] [address] Anesthesia Record Procedure Summary Procedure Name Responsible Anesthesiologist Anesthesia Start Time Anesthesia Stop Time BIOPSY OR EXCISION OF LYMPH NODE(S), OPEN, GROIN-TAMMY (WRVU 3.79) (Bilateral: Groin) Luc Gomez MD 01/19/17 1501 01/19/17 1645 Events Date Time Event Comment 01/19/2017 1337 1501 Start 1503 AN Verify 1503 An Start Data 1512 An Induction 1514 An Intubation 1515 Anesthesia Ready 1518 Break/Relief In Cleve 1532 Procedure Start 1533 Break/Relief Out 1635 Extubation/LMA Out Criteria met. LMA out to . 1639 an stop data 1645 Recovery or ICU Handoff Charlene ent care was transferred to the destination unit staff after review of the patient's medical history, current anesthetic/surgical status and plan, according to the Provider Handoff Checklist. 1645 Stop In recovery, re port to MICHAELA Soto. VSS. Meds Name Total fentaNYL 100 mcg Propofol 320 mg Dexamethasone 8 mg Ondansetron 4 mg PHENYLephrine 400 mcg ePHEDrine 5 mg clindamycin (CLEOCIN) 900mg in dextrose 5% 50mL 900 mg lactated Ringers infusion 1,000 mL 800 m L * Agents Name O2 Air N2O Sevoflurane (et) * Blood No blood administrations on file. Lines, Drains, and Airways Type Details Placement Removal Incision 09/07/15; knee; 11/29/21 (LDA cleanup utility RA#[id number]); 1715 (LDA cleanup utility RA#[id number]) 09/07/15 0000 by Mariam Vaz RN 11/29/21 1715 by Marion Vásquez Incision 06/29/16; 0810; hip; vertical; 11/29/21 (LDA cleanup utility RA#[id number]); 1715 (LDA cleanup utility RA#[id number]) 06/29/16 0810 by Shona Conde RN 11/29/21 1715 by Marion Vásquez (RETIRED) Peripheral IV Line - Single Lumen 09/21/16; 1200; cephalic vein (lateral side of arm), left; laer-kly-cezzjt catheter system; 18 gauge; Emma Weiner RN; intradermal injection, distraction, tolerated well; 0; 01/19/17; 1651 09/21/16 1200 by Emma Weiner, MICHAELA 01/19/17 1651 by Nela Castro RN Incision 09/21/16; 1355; knee ; 11/29/21 (LDA cleanup utility RA#[id number]); 1715 (LDA cleanup utility RA#[id number]) 09/21/16 1355 by Rianna Pinto RN 11/29/21 1715 by Marion Vásquez (RETIRED) Peripheral IV Line - Single Lumen 01/19/17; 1314; cephalic vein (lateral side of arm), left; efda-fss-nnsjxm catheter system; 20 gauge; michaela Weldon; 01/19/17; 1742 01/19/17 1314 by Susie Weldon RN 01/19/17 1742 by Nela Castro RN Supraglottic LMA Type: iGel; LMA Size: 4; Removal Date: 01/19/17; Removal Time: 1635 01/19/17 1519 by Alannah Bui, DIRECTOR OF QUALITY 01/19/17 1635 by Alannah Bui CRNA Incision 01/19/17; 1532; thig h; 11/29/21 (LDA cleanup utility RA#[id number]); 1715 (LDA cleanup utility RA#[id number]) 01/19/17 1532 by Alexei Gamez RN 11/29/21 1715 by Marion Vásquez documented [...] OR Notes * Anesthesia Postprocedure Evaluation - Luc Gomez MD - 01/19/2017 5:20 PM EDT [facility] Department of Anesthesiology Post-procedure Note Patient: Gunnar Morin Procedure Summary Date Anesthesia Start Anesthesia Stop Room / Location 01/19/17 1501 1645 [facility] OR / [facility] Procedure Diagnosis Surgeon Responsible Provider BIOPSY OR EXCISION OF LYMPH NODE(S), OPEN, GROIN-TAMMY (WRVU 3.79) (Bilateral Groin); INTRAOPERATIVE ID (MAPPING) SENTINEL LYMPH NODE,INCLUDES INJECTION (WRVU 2.5) (Midline Penis); MODIFIER SENTINEL NODE EXCISION (Bilateral Groin) (PENILE MELANOMA) Carina Patton MD Schroeck, Hedwig, MD All Anesthesia Providers: Anesthesiologist: Luc Gomez MD DIRECTOR OF QUALITY: Alannah Bui CRNA Most Recent Vitals: 01/19/171707 BP: Pulse: Resp: Temp: SpO2: 97% Pain 4 (01/19/171707) Patient Location: PACU/[facility] Level of Consciousness: Awake and Alert Pain Management: Satisfactory Analgesia PONV: Ongoing PONV/Being Treated Cardiovascular Status: At Baseline and Hemodynamically Stable Respiratory Status: At Baseline and Room Air Postoperative Fluid Status: Intravascular EUvolemia Possible Anesthetic Complications: NONE apparent at time of evaluation Final Primary Anesthesia Type: General (The anesthetic type performed was the same as planned.) Comments: LUC GOMEZ MD * Anesthesia Preprocedure Evaluation - Luc Gomez MD - 01/19/2017 9:12 AM EDT Pre-Anesthesia Evaluation for: Gunnar Morin a 71 y.o. male. Procedure(s): BIOPSY OR EXCISION OF LYMPH NODE(S), OPEN, GROIN-TAMMY (WRVU 3.79) INTRAOPERATIVE ID (MAPPING) SENTINEL LYMPH NODE,INCLUDES INJECTION (WRVU 2.5) MODIFIER SENTINEL NODE EXCISION Patient Active Problem List Diagnosis ??? sp R TKA on 09/21/16 [...] of both knees ??? Bilateral knee pain No past medical history on file. Past Surgical History: Procedure Laterality Date ??? PRO REVISE TOTAL HIP REPLACEMENT Right 06/29/2016 @TOTAL HIP REVISION ARTHROPLASTY, COMPLETE (WRVU 30.28) performed by Walter Rae MD at [facility] MAIN OR ??? PRO TOTAL KNEE ARTHROPLASTY Left 09/07/2015 @TOTAL KNEE ARTHROPLASTY performed by Walter Rae MD at [facility] MAIN OR ??? PRO TOTAL KNEE ARTHROPLASTY Right 09/21/2016 @TOTAL KNEE ARTHROPLASTY (WRVU 20.72) performed by Walter Rae MD at [facility] MAIN OR Social History Substance Use Topics ??? Smoking status: Former Smoker Quit date: 01/11/2001 ??? Smokeless tobacco: Never Used ??? Alcohol use Yes Comment: occasional History Drug Use No Allergies Allergen Reactions ??? Amoxicillin Trihydrate Hives Medications: MAR and/or home medications have been reviewed. Physical Exam: There were no vitals filed for this visit. There is no height or weight on file to calculate BMI. 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 PMH is significant for obesity, CAD (discovered on pre-op eval >1yr ago, now s/p BMS x2 to LAD, only on ASA off plavix), HTN on carvedilol. Denies YESICA (but does snore per ), reports good functional tolerance (able to ambulate 2 FOS without problems). Has had GETA in 06/2016 (mask ventilation with adjunct, grade 1 view with Mac 4, sore throat post-op) Appropriately NPO. Plan: general, LMA. The patient verbalized understanding of the anesthesia plan including risks andalternatives and agreed to proceed. All questions were answered. Janki Gomez MD. Region - Other Informed Consent: Anesthetic plan and risks discussed with patient. Plan discussed with DIRECTOR OF QUALITY and attending. PAT Staff Note documented in this encounter Plan of Treatment Upcoming Encounters Date Type Department Care Team (Late st Contact Info) Description 10/31/2023 9:15 AM EDT Office Visit Dermatology at [facility] [address] [place] [address] Dawson Broderick MD [facility] [place] [address] 07/23/2024 9:30 AM EDT Office Visit Dermatology at [facility] [address] [place] [address] Dawson Broderick MD [facility] [place] [address] documented as of this encounter Visit Diagnoses Not on filedocumented in this encounter Administered Medications Inactive Administered Medications - up to 3 most recent administrations Medication Order MAR Action Action Date Dose Rate Site clindamycin (CLEOCIN) 900mg in dextrose 5% 50mL 900 mg, Intravenous, EVERY 6 HOURS, 1 dose, First dose on Yara 01/19/17 at 1245, Administer over 30 Minutes, Do not exceed 30 mg/minute., Intra-Operative (Intra-Procedure), Indication for (Active or Suspected): Prophylaxis Given 01/19/2017 3:15 PM EDT 900 mg dexamethasone (DECADRON) injection PRN, Starting on Yara 01/19/17 at 1537, Until Yara 01/19/17 at 1645, Anesthesia Intra-op, Routine Given 01/19/2017 3:37 PM EDT 8 mg ePHEDrine 5 mg/mL multi-dose injection PRN, Starting on Yara 01/19/17 at 1617, Until Yara 01/19/17 at 1645, Anesthesia Intra-op, Routine Given 01/19/2017 4:17 PM EDT 5 mg fentaNYL 50 mcg/mL multi-dose injection PRN, Starting on Yara 01/19/17 at 1522, Until Yara 01/19/17 at 1645, Pain, Anesthesia Intra-op, Routine Given 01/19/2017 4:03 PM EDT 50 mcg Given 01/19/2017 4:02 PM EDT 25 mcg Given 01/19/2017 3:22 PM EDT 25 mcg lactated Ringers infusion 1,000 mL 1,000 mL, at 100 mL/hr, Intravenous, CONTINUOUS, Starting on Yara 01/19/17 at 1245, Until Yara 01/19/17 at 1745, Day of Surgery (Day of Procedure) New Bag 01/19/2017 3:01 PM EDT New Bag 01/19/2017 12:45 PM EDT 1,000 mLs 100 mL/hr ondansetron (ZOFRAN) injection PRN, Starting on Yara 01/19/17 at 1627, Until Yara 01/19/17 at 1645, Nausea, Anesthesia Intra-op, Routine Given 01/19/2017 4:27 PM EDT 4 mg PHENYLephrine HCl in NS (PF) (FIOR-SYNEPHRINE) 0.8 mg/10 mL (80 mcg/mL) multi-dose injection Syrg PRN, Starting on Yara 01/19/17 at 1529, Until Yara 01/19/17 at 1645, Anesthesia Intra-op, Routine Given 01/19/2017 4:13 PM EDT 160 mcg Given 01/19/2017 4:10 PM EDT 80 mcg Given 01/19/2017 3:55 PM EDT 80 mcg propofol (DIPRIVAN) 10 mg/mL bolus injection (Anesthesia) PRN, Starting on Yara 01/19/17 at 1512, Until Yara 01/19/17 at 1645, Anesthesia Intra-op Given 01/19/2017 4:03 PM EDT 50 mg Given 01/19/2017 4:02 PM EDT 20 mg Given 01/19/2017 3:14 PM EDT 50 mg documented in this encounter Care Teams Beauty Operator Apprentice Relationship Specialty Start Date End Date Phoenix Guzmán DO [address] [place] [address] [place] [address] PCP - General General Internal Medicine 02/20/15 documented as of this encounter
--- OUTSIDE RECORDS SUMMARY | 2023-10-23 09:06 | XMS_ITS | Encounter Summary ---
[place] [address] Care Team Providers Care Patent Chemist Name Role Phone DevantePhoenix orozco Susan MCDOWELL Primary Care Provider [phone] Reason for Referral * Consultation (Routine) - Closed Specialty Diagnoses / Procedures Referred By Omid shepherd Referred To Contact Hematology and Oncology Diagnoses Malignant melanoma of skin of penis Robert Ramos MD [facility] [place] [address] Cielo Yin MD [facility] DR HEMATOLOGY/[place] [address] Referral ID Status Reason Start Date Expiration Date V isits Requested Visits Authorized [id number] Closed Consult, Test & Treat 02/03/2017 02/03/2018 1 1 Reason for Visit * Reason Comments Follow Up Surgery Encounter Details Date Type Department Care Team (Late st Contact Info) Description 02/03/2017 8:30 AM EDT Office Visit General Surgery at [place] [phone] Robert Ramos MD [facility] [place] [address] Malignant melanoma of skin of penis Social History Tobacco Use Types Packs/Day Years [...] as of this encounter Progress Notes * Robert Ramos MD - 02/03/2017 8:30 AM EDT Surgical Oncology Melanoma Post Op Visit Dx: PENILE MELANOMA Date of surgery: 01/19/2017 Procedure: bilateral inguinal sentinel LN Complications: None Drains: None Removed: None Path: 12/09/16 Penis shaft, excision Malignant Melanoma Thickness 1.76 mm. Ulceration was present. The lesion had 3 mitoses per mm2. Peripheral margin was positive for MIS on lateral margin Deep margin was negative T2b 01/19/17 A. Left inguinal sentinel node #1, excision: - One lymph node, negative for metastatic melanoma (0/1). B. Right inguinal [place] node #1, excision: - One lymph node, negative for metastatic melanoma (0/1, see discussion). C. Right inguinal sentinel node #3, excision: - One lymph node, negative for metastatic melanoma (0/1, see discussion). D. Right inguinal sentinel node #2 ??, excision: - ??Two lymph nodes, negative for metastatic melanoma (0/2). History of Present Illness: .Gunnar Morin has had no specific sequelae from his sentinel node biopsy. minimal discomfort. Nofevers or chills. No drainage. Patient reports the biopsy area being a little lumpy and a little bit of swelling from time to time. Patient reports not using any pain medication and having no other complaints. Current Outpatient Prescriptions on File Prior to Visit Medication Sig Dispense Refill ??? aspirin 81 mg Tablet, Delayed Release (E.C.) Take 81 mg by mouth daily. ??? acetaminophen (TYLENOL) 500 mg Tablet Take 2 tablets by mouth every 8 hours. Around the clock until 10/01/16, and then as needed. DO NOT EXCEED 3000 mg tylenol in a 24 hour period. ??? carvedilol (COREG) 12.5 mg Tablet Take 12.5 mg by mouth 2 times daily (with meals). 4 ??? nitroGLYcerin (NITROSTAT) 0.4 mg Tablet, Sublingual Place 1 tablet under the tongue every 5 minutes as needed for Chest pain. 90 tablet 12 ??? clindamycin (CLEOCIN) 150 mg Capsule See Admin Instructions. Reported on 07/28/2016 No current facility-administered medications on file prior to visit. Allergies as of 02/03/2017 - Review Complete 02/03/2017 Allergen Reaction Noted ??? Amoxicillin trihydrate Hives PE: Appears well. Right inquinal incision well healed small seroma under the skin. No erythema. Left inguinal incision well healed no seroma, no erythema. Assessment: Gunnar Morin is a 71 y.o. male s/p sentinel node biopsy performed on January 12, 2017 for melanoma of the penis. His wide resection was done by dermatology and he has residual MIS thatwill be treated with topical cream, as discussed at tumor board. He has stage IIB disease. We discussed the risk of recurrence and the importance of skin exams. I educated the patient on self lymph node basin exams as well. Plan: 1) Follow-up with [place] [facility]er Operator Dr. Broderick for discussion of aldara 2) We will attempt to coordinate an appointment with Dr. Yin for medical oncology consultation for high risk stage IIB melanoma 3) We will see him in clinic PRN. SCRIBE ATTESTATION Oneida Back has performed the documentation for this encounter in the presence of and acting as a scribe for ROBERT RAMOS MD. I performed the above scribed service and agree with the accuracy of the documentation in this encounter. Robert Ramos MD Surgical Oncology 02/03/2017 documented in this encounter Plan of Treatment Upcoming Encounters Date Type Department Care Team (Late st Contact Info) Description 10/31/2023 9:15 AM EDT Office Visit Dermatology at [facility] [address] [place] [phone] Dawson Broderick MD [facility] [address] [place] [address] 07/23/2024 9:30 AM EDT Office Visit Dermatology at [facility] [address] [place] [address] Dawson Broderick MD [facility] [place] [address] Scheduled Referrals Name Type Priority Associated Diagnoses Order Schedule Referral to Hematology and Oncology Outpatient Referral Routine Malignant melanoma of skin of penis Ordered: 02/03/2017 documented as of this encounter Visit Diagnoses Diagnosis Malignant melanoma of skin of penis Malignant neoplasm of penis, part unspecified documented in this encounter Care Teams Patent Chemist Relationship Specialty Start Date End Date Phoenix Guzmán DO [address] [place] [address] [place] [address] PCP - General General Internal Medicine 02/20/15 documented as of this encounter
--- OUTSIDE RECORDS SUMMARY | 2023-10-23 09:06 | XMS_ITS | Encounter Summary ---
Author Organization [facility] Address [facility] [place] [address] Care Team Providers Care Supply Chain Design Manager Name Role Phone DevantePhoenix orozco Primary Care Provider [phone] Reason for Visit * Auth/Cert Specialty Diagnoses [...] Expiration Date Visits Re quested Visits Authorized [id number] 1 1 Encounter Details Date Type Department Care Team (Latest Contact Info) Description 01/19/2017 7:20 AM EDT - 01/19/2017 9:04 AM EDT Hospital Encounter XRay at [address] [place] [address] Walter Rae MD [facility] [place] [address] Status post total replacement of right hip Discharge Disposition: Home Social History [...] Sig Dispensed Refills Start Date End Date carvedilol (COREG) 12.5 mg Tablet Take 12.5 mg by mouth 2 times daily (with meals). 4 05/31/2016 nitroGLYcerin (NITROSTAT) 0.4 mg Tablet, Sublingual Place 1 tablet under the tongue every 5 minutes as needed for Chest pain. 90 tablet 12 07/11/2015 clindamycin (CLEOCIN) 150 mg Capsule See Admin Instructions. Reported on 07/28/2016 04/13/2015 aspirin 81 mg Tablet, Delayed Release (E.C.) Take 81 mg by mouth daily. 12/12/2019 acetaminophen (TYLENOL) 500 mg Tablet Take 2 tablets by mouth every 8 hours. Around the clock until 10/01/16, and then as needed. DO NOT EXCEED 3000 mg tylenol in a 24 hour period. 09/22/2016 12/02/2017 pravastatin (PRAVACHOL) 10 mg Tablet Take 1 tablet by mouth nightly. 30 tablet 08/19/2015 02/03/2017 documented as of this encounter Plan of Treatment Upcoming Encounters Date Type Department Care Team (Late st Contact Info) Description 10/31/2023 9:15 AM EDT Office Visit Dermatology at [facility] [address] [place] [address] Dawson Broderick MD [facility] [address] [place] [address] 07/23/2024 9:30 AM EDT Office Visit Dermatology at [facility] [address] [place] [phone] Dawson Broderick MD [facility] [place] [address] documented as of this encounter Procedures Procedure Name Priority Date/Time Associated Diagnosis Comments XR PELVIS AND HIP 2 VIEWS RIGHT Routine 01/19/2017 8:12 AM EDT Status post total replacement of right hip documented in this encounter Results * XR Pelvis w AP & Lat Hip Right (01/19/2017 8:12 AM EDT) Anatomical Region Laterality Modality Pelvis, Hip Right Digital Radiogra phy Impressions 01/19/2017 10:19 AM EDT No change in appearance of right total hip arthroplasty. Narrative 01/19/2017 10:19 AM EDT EXAMINATION: XR PELVIS W AP AND LAT HIP RIGHT CLINICAL HISTORY: check status of hardware TECHNIQUE: AP pelvis and 2 views of right hip. COMPARISON: 12/17/2016 FINDINGS: There is no interval change, specifically in the position of the acetabular and femoral components of the right total hip arthroplasty. No periprosthetic fracture or significant new periprosthetic lucency is seen. Procedure Note Haris Aguirre MD - 01/19/2017 EXAMINATION: XR PELVIS W AP AND LAT HIP RIGHT CLINICAL HISTORY: check status of hardware TECHNIQUE: AP pelvis and 2 views of right hip. COMPARISON: 12/17/2016 FINDINGS: There is no interval change, specifically in the position of theacetabular and femoral components of the right total hip arthroplasty. Noperiprosthetic fracture or significant new periprosthetic lucency is seen. IMPRESSION No change in appearance of right total hip arthroplasty. Walter Rae MD IMG DX ORDERABLES documented in this encounter Visit Diagnoses Diagnosis Status post total replacement of right hip documented in this encounter Care Teams Supply Chain Design Manager Relationship Specialty Start Date End Date Phoenix Guzmán DO [address] [place] [address] [place] [address] PCP - General General Internal Medicine 02/20/15 documented as of this encounter
--- OUTSIDE RECORDS SUMMARY | 2023-10-23 09:06 | XMS_ITS | Encounter Summary ---
[facility] [place] [address] Care Team Providers Care Mig Welder Name Role Phone DevantePhoenix orozco Susan MCDOWELL Primary Care Provider Reason for [...] Expiration Date Visits Re quested Visits Authorized [id number] 1 1 Encounter Details Date Type Department Care Team (Late st Contact Info) Description 01/19/2017 1:37 PM EDT - 01/19/2017 3:07 PM EDT Surgery [place] [phone] Carina Ramos MD [facility] [place] [address] BIOPSY OR EXCISION OF LYMPH NODE(S), OPEN, GROIN-TAMMY (WRVU 3.79) Social History Tobacco Use Types Packs/Day Years [...] Sign Reading Time Taken Comments Blood Pressure 138/84 01/19/2017 12:24 PM EDT Pulse 88 01/19/2017 12:24 PM EDT Temperature 37.4 ??C (99.3 ??F) 01/19/2017 12:24 PM E DT Respiratory Rate 16 01/19/2017 12:24 PM EDT Oxygen Saturation 96% 01/19/2017 12:24 PM EDT Inhaled Oxygen Concentration - - Weight 127 kg (280 lb) 01/19/2017 12:24 PM EDT Height 182.9 cm (6') 01/19/2017 12:24 PM EDT Body Mass Index 37.97 01/19/2017 12:24 PM EDT documented in this encounter Discharge Instructions * Discharge Instructions* Garland Castro RN - 01/19/2017 4:52 PM EDT General Anesthesia Discharge Instructions Go home and rest. You may be sleepy for several hours. Take it easy as sudden position changes may cause nausea and/or dizziness. Use caution on stairs. Do not smoke if you are alone. Follow a light to regular diet as tolerated today. If nausea occurs, start with clear liquids, and progress slowly to a regular diet. Do not drive, operate machinery, drink alcoholic beverages or make any legal decisions after havinggeneral anesthesia. The medications given change your reaction time and alter your judgement. IV site -- slight redness is normal, you can use warm compresses. If tenderness and redness increases or foul drainage occurs, please contact your M.D. Patients who have had endotracheal tubes/LMA (tubes used by the anesthesia staff to ensure a safe airway during your operation) may have a sore throat. This is normal and cold liquids or soothing lozengers will help ease this discomfort. Narcotic pain medications can cause constipation, please ask the surgeons office what they recommend for prevention of this. Some non-pharmaceutical means of constipation prevention include increasing intake of fluids, eating more fruits and vegetables as well as fruit juices. If you are uncomfortable and/or unable to urinate within 8 hours of discharge and it is before 5 pm, call your physician. If it is after 5pm go to the closest emergency room or call the hospital oil pump station operator chief at [phone] and ask for physician monitor worker covering for your physician. Questions or problems after 5pm or on a weekend: Call the [facility] oil pump station operator chief at and ask for the physician monitor worker covering for your doctor. * Patient Instructions* Carina Ramos MD - 01/19/2017 3:10 PM EDT Instructions following Soft Tissue Surgery What to Expect Following Surgery: Swelling and/or bruising under and around the incision is normal. It is usually greatest on the second or third day following surgery. You may also feel the sensation of swelling or firmness that canlast for a month or more Your scar will be most visible for 1-2 months following your operation and will gradually fade. As it heals, a scar looks more pink or red than the skin around it. You may feel a ???healing ridge?? directly under the incision. This is normal and will go away when healing is complete. The skin just above and below your incision will feel numb. This will improve over several months but some patients may have long-term decrease in sensation over these areas. Incision Care: you may have surgical glue on your incision which has a purplish hue. This will wear away on it's own over the next couple weeks. Tomorrow you may shower and get incision wet. Pat dry immediately following. Do not scrub area vigorously for the next 2 weeks. Do not soak incision under water (i.e. bath or swimming) for the next 3 weeks to prevent a wound infection. Do not use any ointments/salves/Vitamin E on the incision until after your first follow-up appointment as these may impair early wound healing Incisions are sensitive to sunlight. For 1 year after surgery you should use sunscreen when outdoors for long periods of time to prevent permanent darkening of the scar. Diet & Activity: No restrictions in your diet are necessary. Activity as tolerated by your comfort level. ELevate lower extremities when at rest. You may return to work in 3-5 days or sooner if desired. NO DRIVING for at least 8 hours following any dose of an opioid pain medication if one was prescribed for you. Pain Management: Take acetaminophen (Tylenol) 1000mg every 8 hours for the first 3-5 days following surgery to help minimize pain. You may also use NSAIDS like ibuprofen (motrin, advil), naproxen (Naprosyn, Aleve). Use opioid (oxycodone) pain medications for severe pain, and do not take with alcohol. Opioid medications typically cause constipation, so we suggest using a stool softener in addition (metamucil, colace...etc.) You may apply ice or cold packs to the incision for 15-20 minutes several times a day for the first2-3 days following surgery to help with discomfort Follow-up Appointment: Will be scheduled with Dr. Ramos in 2-3 weeks Please call [phone] to confirm date and time of your appointment if you do not hear from us inthe week. Future Appointments Date Time Provider Department Center 02/03/2017 8:30 AM Carina Ramos MD [facility] Call Doctor for: Worsening redness or drainage from your incision lasting longer than 5 days following surgery Any foul-smelling drainage from the incision Fevers greater than 101 degrees F Persistent nausea or vomiting (this may be related to opioid pain medications) Phone number for questions: [phone] before 5 PM weekdays [phone] after 5 PM and on weekends/holidays documented in this encounter Medications at Time [...] 08/19/2015 02/03/2017 documented as of this encounter H&P Notes * Carina Ramos MD - 01/19/2017 3:01 PM EDT Patient Name: Gunnar Morin Patient Age: 71 y.o. Birthdate: 1945 Admit date: 01/19/2017 Attending Physician: Carina Ramos MD Surgical Oncology Consultation Note ?? Reason for Visit: Gunnar Morin is a 71 y.o. 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 ?? History of the present illness: Gunnar Morin is a 71 y.o. year old male with PMH significant for CAD s/p stent placement. Approximately 2 years ago he first noticed a pigmented lesion on the shaft of his penis. Last month he noticed changed including bleeding. He underwent evaluation by his PCP during regular routine check up in Nov 2016 and the lesion appeared concerning. He underwent evaluation by dermatologists Dr Tobin and Davie on 12/01/16 who noted a distal right shaft of the penis, 2.5 x 2.3 cm brown pigmented??patch with central whitish-blue nodule with ulceration. A snip biopsy was performed which showed an atleast 0.79 malignant melanoma, positive ulceration, 3mitosis with positive margins. He underwent further excision with 5mm margins with secondary intention healing wound. Path as follows: ?? 12/09/16 Penis shaft, excision Malignant Melanoma Thickness 1.76 mm. Ulceration was present. The lesion had 3 mitoses per mm2. Peripheral margin was positive for MIS on lateral margin Deep margin was negative T2b ?? The patient presents today for evaluation and discussion of treatment options. In addition to the above history he states that the wound is healing but still has some drainge. Did take antibiotics asdirected. It has no associated itching, bleeding. Mild tenderness. He is not personally concerned about any other moles or skin lesions. He denies noticing any abnormal adenopathy. ?? He reports signficant sun exposure during childhood/adolescence. His family history is reported below and is notable for no history of melanoma or other skin cancers. ?? Overall, he feels well. Denies fatigue. Denies weight loss. Denies headaches. ?? He is accompanied to this visit by his ?? Active Ambulatory Problems ? Diagnosis Date Noted ??? s/p revision R [id number] with head-liner exchange 06/29/16 (Dr. Rae) with dislocation(12/2016) 05/07/2015 ??? Osteoarthritis of both knees 05/07/2015 ??? Bilateral knee pain 05/07/2015 ??? Arthritis of knee 06/21/2015 ??? CAD (coronary artery disease) 07/10/2015 ??? DJD (degenerative joint disease) of knee 09/05/2015 ??? Obesity, Class II, BMI 35-39.9 09/08/2015 ??? 09/07/2015 S/P Left total knee arthroplasty (Dr. Rae) 09/08/2015 ??? H/O total hip arthroplasty 04/25/2016 ??? 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 Status post total replacement of right hip 06/30/2016 ??? Monitoring for anticoagulant use 07/04/2016 ??? Status post total knee replacement 08/23/2016 ??? sp R TKA on 09/21/16 Butch 08/24/2016 ?? Resolved Ambulatory Problems ? Diagnosis Date Noted ??? Anticoagulation management encounter 06/30/2016 ?? No Additional Past Medical History ? Past Surgical History: Procedure Laterality Date ??? PRO REVISE TOTAL HIP REPLACEMENT Right 06/29/2016 ?? @TOTAL HIP REVISION ARTHROPLASTY, COMPLETE (WRVU 30.28) performed by Walter Rae MD at [facility] MAIN OR ??? PRO TOTAL KNEE ARTHROPLASTY Left 09/07/2015 ?? @TOTAL KNEE ARTHROPLASTY performed by Walter Rae MD at [facility] MAIN OR ??? PRO TOTAL KNEE ARTHROPLASTY Right 09/21/2016 ?? @TOTAL KNEE ARTHROPLASTY (WRVU 20.72) performed by Walter Rae MD at [facility] MAIN OR ? Review of systems: A 12 point comprehensive ROS was reviewed with the patient. It was otherwise negative except for what was stated in the HPI ? Current Outpatient Prescriptions: ??? aspirin 81 mg Tablet, Delayed Release (E.C.), Take 81 mg by mouth daily., Disp: , Rfl: ??? acetaminophen (TYLENOL) 500 mg Tablet, Take 2 tablets by mouth every 8 hours. Around the clock until 10/01/16, and then as needed. DO NOT EXCEED 3000 mg tylenol in a 24 hour period., Disp: , Rfl: ??? carvedilol (COREG) 12.5 mg Tablet, Take 12.5 mg by mouth 2 times daily (with meals)., Disp: , Rfl: 4 ??? nitroGLYcerin (NITROSTAT) 0.4 mg Tablet, Sublingual, Place 1 tablet under the tongue every 5 minutes as needed for Chest pain., Disp: 90 tablet, Rfl: 12 ??? pravastatin (PRAVACHOL) 10 mg Tablet, Take 1 tablet by mouth nightly. (Patient not taking: Reported on 12/22/2016), Disp: 30 tablet, Rfl: 0 ??? clindamycin (CLEOCIN) 150 mg Capsule, See Admin Instructions. Reported on 07/28/2016, Disp: , Rfl: ?? Allergies: Allergies Allergen Reactions ??? Amoxicillin Trihydrate Hives ? Social History: Social History ?? Social History ??? Marital status: ? Spouse name: N/A ??? Number of children: N/A ??? Years of education: N/A ?? Occupational History ??? Not on file. ?? Social History Main Topics ??? Smoking status: Former Smoker ? Quit date: 01/11/2001 ??? Smokeless tobacco: Never Used ??? Alcohol use Yes ? Comment: occasional ??? Drug use: No ??? Sexual activity: Not on file ?? Other Topics Concern ??? Not on file ?? Social History Narrative ? Family History Problem Relation Age of Onset ??? Cancer Mother ? Physical Examination: ?? Constitutional: This is a 71 y.o. male in no apparent distress. BP 132/68 (BP Location (NBP): Right arm, Patient Position: Sitting, BP Cuff Sizes: Large Adult (32-43 cm)) Pulse 79 Temp 36.7 ??C (98.1 ??F) (Oral) Resp 14 Ht 182.9 cm (6') Wt (!) 131.6 kg (290 lb 3.2 oz) SpO2 98% BMI 39.36 kg/m2 ?? A focused examination of the biopsy site on his penile shaft revealed a granulating wound. No surrounding erythema. + fibrinous exudate. There were no satellite or in-transit nodules palpated. ?? Lymphatic basin exam: There was no palpable adenopathy in the bilateral supraclavicular, cervical, axillary or inguinal regions. ?? Eyes: anicteric, extra ocular movements are intact Neuro: No focal deficits. Hearing and speech intact Psych: the patient is alert and oriented. Normal affect. Heart: Regular rate and rhythm. No peripheral edema Lungs: Clear bilaterally with good air intake Abdomen: Soft, non-tender, non-distended. There are normal active bowel sounds, no hepatosplenomegaly. Musculoskeletal: The patient has normal gait, range of motion, and muscle strength Skin: warm, dry, good turgor, non-icteric. ?? Assessment and plans: Gunnar Morin is a 71 y.o. 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 Lymph nodes are clinically negative. Clinical stage IIA. This diagnosis was discussed with the patient at length. He already had wide excision of the primary. Lateral margin + for MIS which will be managed by dermatology. In terms of risk of going to lymph nodes, he has about a 15-20% chance of having a positive SLNB. The concept of vivian staging with sentinel lymph node biopsy (SLNBx) was also discussed. Using Technetium sulfur colloid injected by Nuclear Medicine colleagues on the day of surgery at the biopsy site and lymphoscintigraphy the sentinel lymph node(s) will be localized and excised for pathologic analysis. We also discussed the possibility of recommendation for completion therapeutic lymphadenectomy (cTLND) versus surveillance with ultrasound if the sentinel lymph node were found to contain regionally metastatic malignant melanoma. We will discuss this further once we get final staging pathology. ?? We also spent time reviewing the nature and natural history of melanoma. We discussed recurrence risk and common recurrence patterns. We also reviewed the importance of full skin checks and sun protection. ?? The patient And his asked multiple questions which were answered to their satisfaction and he would like to proceed with plan as follows: ? 1) lymphatic mapping, SLNB with lymphoscintigraphy. I explained the implications, indications and alternatives to the proposed treatment plan as well as the risks, including infection, bleeding/hematoma, seroma, need for additional surgery, lymphedema. Consent form has been signed. Same day surgery, out patient. ?? 2) Present at melanoma tumor board ?? 3) Continue dermatology follow up Q3-6 months skin exams ?? Carina Lira. MD [facility] documented in this encounter Miscellaneous Notes * Op Note - Carina Ramos MD - 01/19/2017 4:37 PM EDT [facility] Operative Note Patient Name: Gunnar Morin : [id number] MR#: [id number] Case Date: 01/19/2017 Surgeon: Surgeon(s) and Role: * Carina Ramos MD - Primary * Gini Omalley MD Preoperative diagnosis: PENILE MELANOMA Postoperative diagnosis: PENILE MELANOMA Procedure(s) (LRB): BIOPSY OR EXCISION OF LYMPH NODE(S), OPEN, GROIN-TAMMY (WRVU 3.79) (Bilateral) INTRAOPERATIVE ID (MAPPING) SENTINEL LYMPH NODE,INCLUDES INJECTION (WRVU 2.5) (Midline) MODIFIER SENTINEL NODE EXCISION (Bilateral) Anesthesia: General Estimated Blood Loss:5cc Specimens removed during surgery: Order Name Source Comment Collection Info Order Time SPECIMEN TO PATHOLOGY (SURGICAL OR DERM) PENILE MELANOMA Left Inguinal Sentinal Node #1 No 01/19/2017 3:50 PM Biospecimen to store? No SPECIMEN TO PATHOLOGY (SURGICAL OR DERM) PENILE MELANOMA Right Inguinal Sentinal Node #1 No 01/19/2017 4:11 PM Biospecimen to store? No SPECIMEN TO PATHOLOGY (SURGICAL OR DERM) PENILE MELANOMA Right Inguinal Sentinal Node #2 No 01/19/2017 4:12 PM Biospecimen to store? No SPECIMEN TO PATHOLOGY (SURGICAL OR DERM) PENILE MELANOMA Right Inguinal Sentinal Node #3 No 01/19/2017 4:22 PM Biospecimen to store? No Drains: Surgical Closure: Primary Closure - closure of ALL tissue levels during the original surgery regardless of wires, wickes, drains, or other devices extruding through the incision Disposition: awakened from anesthesia, extubated and taken to the recovery room in a stable condition, having suffered no apparent untoward event. Condition: doing well without problems (Please see the Surgical Encounter Summary for any Implant and Specimen details pertinent to this patient.) Findings: patient mapped to one left inguinal lymph node, #7852. Remaining count 138. Patient mapped to three right inguinal lymph nodes #1: 2580, #2: 7512, #3: 6906. Remaining count 72. One left inguinal node was enlarged, otherwise, no lymphadenopathy or abnormal appearing nodes. Indications for surgery: Gunnar Morin is a 71 y.o. 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 Lymph nodes are clinically negative. Plan for lymphatic mapping, SLNB with lymphoscintigraphy. I explained the implications, indications and alternatives to the proposed treatment plan as well as the risks, including infection, bleeding/hematoma, seroma, need for additional surgery, lymphedema. Consent form has been signed. Procedure in detail: Mr. Morin was identified in the preop holding area. He was brought to nuclearmedicine where Technetium 99 sulfur colloid was injected intradermally at the base of the penis. Lymphoscintigraphy was done and he mapped to bilateral inguinal lymph nodes. He was then brought to the operating room where monitoring lines and Venodyne boots were placed. General anesthesia was induced and he was intubated without complications. A formal timeout procedure was performed pursuant to and in compliance with [facility] operative policies. He was positioned supine. His lower abdomen and inguinal area and upper thighs were prepped with betadine and sterile drapes were placed. We started on the the left inguinal area and using the gamma probe the left inguinal area was probed to identify an area of uptake. This was above the inguinal ligament. Local analgesia was injected subcutaneously and a 3 cm long incision was made transversely. Dissection was carried down through scarpas fascia into the vivian tissue.The gamma probe identified an area of vivian uptake and this was dissected free from its lymphareolar attachments. Clips were placed on the lymphatic channels to prevent seroma formation. The node was removed and sent to pathology as LEFT inguinal sentinel node #1.The ex vivo vivian counts are listed above. The remaining count was less than 10% of the hottest node, thereby confirming that all sentinel lymph nodes have been removed from this area. The sentinel lymph node biopsy incision was irrigated and hemostasis was obtained. We then proceeded to the right inguinal area and using the gamma probe the right inguinal area was probed to identify an area of uptake. This was above the inguinal ligament. Local analgesia was injected subcutaneously and a 3 cm long incision was made transversely. Dissection was carried down through scarpas fascia into the vivian tissue.The gamma probe identified an area of vivian uptake and thiswas dissected free from its lymphareolar attachments. Clips were placed on the lymphatic channels to prevent seroma formation. The node was removed and sent to pathology as RIGHT inguinal sentinel node #1. There was additional activity lower, just above the inguinal ligament and as additional 2 SLNwere identified and excised in the same fashion. The ex vivo vivian counts are listed above.THere were sent as RIGHT #2 and #3. The remaining count was less than 10% of the hottest node, thereby confirming that all sentinel lymph nodes have been removed from this area. The sentinel lymph node biopsy incision was irrigated and hemostasis was obtained. The sentinel node incisions on both sides were brought together with closing the monalisa's fascia with interrupted 3-0 vicryl and deep dermal 3-0 Vicryl stiches and skin with a running 4-0 Monocryl subcuticular stich. Dermabond was placed followed by a sterile dressing. A time out was performed and all counts were reported to me as correct. The patient was extubated in the OR and taken to the recovery room in hemodynamically stable condition. Infection Bundle used? N/A Attestation: Case Date: 01/19/2017 I was present and I participated during the entire procedure (does not need to include opening and closing). CARINA RAMOS MD 01/19/2017 * Brief Op Note - Carina Ramos MD - 01/19/2017 4:35 PM EDT Brief Operative Note Patient Name: Gunnar Morin : [id number] MR#: [id number] Case Date: 01/19/2017 Surgeon: Surgeon(s) and Role: * Carina Ramos MD - Primary * Gini Omalley MD Preoperative diagnosis: PENILE MELANOMA Postoperative diagnosis: PENILE MELANOMA Procedure(s) (LRB): BIOPSY OR EXCISION OF LYMPH NODE(S), OPEN, GROIN-TAMMY (WRVU 3.79) (Bilateral) INTRAOPERATIVE ID (MAPPING) SENTINEL LYMPH NODE,INCLUDES INJECTION (WRVU 2.5) (Midline) MODIFIER SENTINEL NODE EXCISION (Bilateral) Anesthesia: General Findings: patient mapped to one left inguinal lymph node, #7852. Remaining count 138. Patient mapped to three right inguinal lymph nodes #1: 2580, #2: 7512, #3: 6906. Remaining count 72. One left inguinal node was enlarged, otherwise, no lymphadenopathy or abnormal appearing nodes. Complications: none Intake: 800cc Output: Estimated Blood Loss: 10cc Urine Output:: (no blood products) Other Output: (no other output recorded) Drains: na Specimens removed during surgery: Order Name Source Comment Collection Info Order Time SPECIMEN TO PATHOLOGY (SURGICAL OR DERM) PENILE MELANOMA Left Inguinal Sentinal Node #1 No 01/19/2017 3:50 PM Biospecimen to store? No SPECIMEN TO PATHOLOGY (SURGICAL OR DERM) PENILE MELANOMA Right Inguinal Sentinal Node #1 No 01/19/2017 4:11 PM Biospecimen to store? No SPECIMEN TO PATHOLOGY (SURGICAL OR DERM) PENILE MELANOMA Right Inguinal Sentinal Node #2 No 01/19/2017 4:12 PM Biospecimen to store? No SPECIMEN TO PATHOLOGY (SURGICAL OR DERM) PENILE MELANOMA Right Inguinal Sentinal Node #3 No 01/19/2017 4:22 PM Biospecimen to store? No Disposition: awakened from anesthesia, extubated and taken to the recovery room in a stable condition, having suffered no apparent untoward event. Condition: doing well without problems Attestation: Case Date: 01/19/2017 I was present and I participated during the entire procedure (does not need to include opening and closing). (Please see the Surgical Encounter Summary for any Implant and Specimen details pertinent to this patient.) documented in this encounter Plan of Treatment Upcoming Encounters Date Type Department Care Team (Late st Contact Info) Description 10/31/2023 9:15 AM EDT Office Visit Dermatology at [facility] [address] [place] [address] Dawson Broderick MD [facility] [place] [address] 07/23/2024 9:30 AM EDT Office Visit Dermatology at [facility] [address] [place] [address] Dawson Broderick MD [facility] [place] [address] documented as of this encounter Procedures Procedure Name Priority Date/Time Associated Diagnosis Comments SPECIMEN TO PATHOLOGY Routine 01/19/2017 4:22 PM EDT SPECIMEN TO PATHOLOGY Routine 01/19/2017 4:12 PM EDT SPECIMEN TO PATHOLOGY Routine 01/19/2017 4:11 PM EDT SURGICAL PATHOLOGY REPORT Routine 01/19/2017 3:50 PM EDT SPECIMEN TO PATHOLOGY Routine 01/19/2017 3:50 PM EDT MODIFIER SENTINEL NODE EXCISION Yes 01/19/2017 3:03 PM EDT PENILE MELANOMA INTRAOPERATIVE ID (MAPPING) SENTINEL LYMPH NODE,INCLUDES INJECTION (WRVU 2.5) Yes 01/19/2017 3:03 PM EDT PENILE MELANOMA BIOPSY OR EXCISION OF LYMPH NODE(S), OPEN, GROIN-TAMMY (WRVU 3.79) Yes 01/19/2017 3:03 PM EDT PENILE MELANOMA documented in this encounter Results * Specimen to Pathology (surgical or derm) (01/19/2017 4:22 PM EDT) AP Specimen 01/19/2017 4:22 PM EDT 01/19/2017 4:22 PM EDT [facility] LABORATORY - 01/19/2017 4:22 PM EDT Specimen requisition ordered. ??Separate Pathology report to follow Carina Lira MD PATHOLOGY/CYTOLO GY ORDERABLES Performing Organization Address [facility] Co de Phone Number [facility] [place] [address] * Specimen to Pathology (surgical or derm) (01/19/2017 4:12 PM EDT) AP Specimen 01/19/2017 4:12 PM EDT 01/19/2017 4:12 PM EDT Narrative [facility] - 01/19/2017 4:12 PM EDT Specimen requisition ordered. ??Separate Pathology report to follow Carina Lira MD PATHOLOGY/CYTOLO GY ORDERABLES Performing Organization Address [facility] Co de Phone Number [facility] [place] [address] * Specimen to Pathology (surgical or derm) (01/19/2017 4:11 PM EDT) AP Specimen 01/19/2017 4:11 PM EDT 01/19/2017 4:11 PM EDT Narrative [facility] - 01/19/2017 4:11 PM EDT Specimen requisition ordered. ??Separate Pathology report to follow Carina Lira MD PATHOLOGY/CYTOLO GY ORDERABLES Performing Organization Address [facility] Co de Phone Number [facility] [place] [address] * Surgical Pathology Report (01/19/2017 3:50 PM EDT) FINAL DIAGNOSIS (AP) [id number] ? Location: [facility] The signing pathologist has (i) examined the relevant preparation(s) for the specimen(s) and (ii) rendered or confirmed the diagnosis(es). . ?Surgical Pathology DIAGNOSIS A. Left inguinal sentinel node #1, excision: - One lymph node, negative for metastatic melanoma (0/1). B. Right inguinal Darragh node #1, excision: - One lymph node, negative for metastatic melanoma (0/1, see discussion). C. Right inguinal sentinel node #3, excision: - One lymph node, negative for metastatic melanoma (0/1, see discussion). D. Right inguinal sentinel node #2 ??, excision: - ??Two lymph nodes, negative for metastatic melanoma (0/2). Electronically signed by: ??Cassy Triana MD Verified: ??01/29/2017 ?Dermatopathologist Performed at: ??-[facility] Dept. of Pathology, [place], [place] DISCUSSION B, C. ??Rare weakly Melan-A positive small cell are seen in the lymph node parenchyma. The significance of this finding has not been defined. The cytologic features are not diagnostic of melanoma, and no melanoma cells are identified on H ?&E stained sections. This case was also reviewed by an additional intradepartmental dermatopathologist for consensus diagnosis. Patient 's prior biopsy slides ([id number]) were reviewed. ADDITIONAL STUDIES Immunohistochemistry Studies: Formalin-fixed, paraffin-embedded tissue sections are studied using the polymer technique with appropriate positive and negative controls. ?These IHC studies provide the pathologist with adjunctive diagnostic information. Antibody specificity has been verified by testing antibodies on a series of in-house tissues with known immunohistochemical performance characteristics. The clinical interpretation of any antibody positive staining or its absence is evaluated within the context of clinical presentation, morphology, histopathological criteria and other diagnostic tests. Block ? Antibody ? Result (Positive/Negative) A1 ? Melan-A ? Negative for metastatic melanoma A2 ? Melan-A ? Negative for metastatic melanoma B1 ? Melan-A ? Negative for metastatic melanoma B2 ? Melan-A ? Negative for metastatic melanoma B3 ? Melan-A ? Negative for metastatic melanoma C1 ?Melan-A ?Negative for metastatic melanoma ?C2 ? Melan-A ?Negative for metastatic melanoma D1 ?Melan-A ?Negative for metastatic melanoma D2 ?Melan-A ?Negative for metastatic melanoma CLINICAL INFORMATION Specimen Submitted: A - Left inguinal sentinel node #1 B - Right inguinal Darragh node #1 . CLINICAL INFORMATION C - Right inguinal sentinel node #3 D - Right inguinal sentinel node #2 Clinical History: Penile melanoma Clinical Diagnosis: Same SPECIMEN PROCESSING A - ??Labeled/Fixative: Left inguinal sentinel node #1, fresh. Quantity/Size: Fragments, 3.5 x 3.0 x 1.0 cm. Tissue Description: Aggregate of myles yellow lobular fatty tissue within which a single, 1.5 cm pink-myles lymph node is identified. Sections/Processing: The lymph node is serially sectioned and entirely submitted. (R2) B - ??Labeled/Fixative: Right inguinal sentinel node #1, fresh. Quantity/Size: Fragments, 3.5 x 3.5 x 3.0 cm. Tissue Description: Aggregate of myles yellow lobular fatty tissue within which a single, irregular, 3.3 cm myles-white lymph node is identified. Sections/Processing: The lymph node is serially sectioned and entirely submitted. (R3) C - ??Labeled/Fixative: Right inguinal sentinel node #3, fresh. Quantity/Size: Fragments, 2.5 x 2.2 x 1.2 cm. Tissue Description: Aggregate of myles yellow lobular fatty tissue within which a single, 2.5 cm pink-myles lymph node is identified. Sections/Processing: The lymph node is serially sectioned and entirely submitted. (R2) D - ??Labeled/Fixative: Right inguinal sentinel node #2, fresh. Quantity/Size: Aggregate, 2.0 x 1.5 x 1.0 cm. Tissue Description: The myles-yellow lobular fatty tissue within which two, pink-myles lymph nodes are identified, 0.5 and 0.6 cm. Sections/Processing: Each lymph node is bisected, entirely and separately submitted. (R2) ??ejr 01/29/2017 9:11 PM EDT [facility] 01/19/2017 3:50 PM EDT Carina Lira MD PATHOLOGY/CYTOLO GY ORDERABLES Performing Organization Address [facility] Co de Phone Number [facility] [place] [address] * Specimen to Pathology (surgical or derm) (01/19/2017 3:50 PM EDT) AP Specimen 01/19/2017 3:50 PM EDT 01/19/2017 3:50 PM EDT Narrative [facility] - 01/19/2017 3:50 PM EDT Specimen requisition ordered. ??Separate Pathology report to follow Carina Lira MD PATHOLOGY/CYTOLO GY ORDERABLES Performing Organization Address [facility] [place] [address] documented in this encounter Visit Diagnoses Not on filedocumented in this encounter Administered Medications Inactive Administered Medications - up to 3 most recent administrations Medication Order MAR Action Action Date Dose Rate Site acetaminophen (TYLENOL) tablet 1,000 mg 1,000 mg, Oral, ONCE, 1 dose, On Yara 01/19/17 at 1730, Maximum dose of acetaminophen is 4000 mg from all sources in 24 hours., Routine Given 01/19/2017 5:08 PM EDT 1,000 mg BUpivacaine (PF) (MARCAINE) 0.5 % (5 mg/mL) injection ONCE PRN, Starting on Yara 01/19/17 at 1546, Until Yara 01/19/17 at 1949, Intra-Operative (Intra-Procedure), Routine Given 01/19/2017 3:54 PM EDT 2 mLs 19- Surgical Site Given 01/19/2017 3:46 PM EDT 1.5 mLs 19 - Surgical Site lactated Ringers infusion 1,000 mL 1,000 mL, at 100 mL/hr, Intravenous, CONTINUOUS, Starting on Yara 01/19/17 at 1245, Until Yara 01/19/17 at 1745, Day of Surgery (Day of Procedure) New Bag 01/19/2017 3:01 PM EDT New Bag 01/19/2017 12:45 PM EDT 1,000 mLs 100 mL/hr lidocaine (XYLOCAINE) 10 mg/mL (1 %) injection ONCE PRN, Starting on Yara 01/19/17 at 1547, Until Yara 01/19/17 at 1949, Intra-Operative (Intra-Procedure), Routine Given 01/19/2017 3:55 PM EDT 2 mLs 19- Surgical Site Given 01/19/2017 3:47 PM EDT 1.5 mLs 19 - Surgical Site ondansetron (ZOFRAN) injection 4 mg 4 mg, Intravenous, ONCE, 1 dose, On Yara 01/19/17 at 1745, PACU Recovery, Routine Given 01/19/2017 5:22 PM EDT 4 m g documented in this encounter Active and Recently Administered Medications Times are shown in EDT. Scheduled Medication Order 01/17/2017 01/18/2017 01/19/2017 acetaminophen (TYLENOL) tablet 1,000 mg (COMPLETED) 1,000 mg, Oral, ONCE, 1 dose, On Yara 01/19/17 at 1730, Maximum dose of acetaminophen is 4000 mg from all sources in 24 hours., Routine 1708 (Given - Provid er: aGrland Castro RN) clindamycin (CLEOCIN) 900mg in dextrose 5% 50mL (COMPLETED) 900 mg, Intravenous, EVERY 6 HOURS, 1 dose, First dose on Yara 01/19/17 at 1245, Administer over 30 Minutes, Do not exceed 30 mg/minute., Intra-Operative (Intra-Procedure), Indication for (Active or Suspected): Prophylaxis 1515 (Given - Provid er: Alannah Bui CRNA) ondansetron (ZOFRAN) injection 4 mg (COMPLETED) 4 mg, Intravenous, ONCE, 1 dose, On Yara 01/19/17 at 1745, PACU Recovery, Routine 1722 (Given - Provid er: Garland Castro, MICHAELA) Continuous Medication Order 01/17/2017 01/18/2017 01/19/2017 lactated Ringers infusion 1,000 mL (CANCELED) 1,000 mL, at 100 mL/hr, Intravenous, CONTINUOUS, Starting on Yara 01/19/17 at 1245, Until Yara 01/19/17 at 1745, Day of Surgery (Day of Procedure) 1245 (New Bag - Prov ider: Susie Weldon RN)1501 (New Bag - Provider: Luc Gomez MD)1630 (Anesthesia Volume Adjustment - Provider: Alannah Bui CRNA) PRN Medication Order 01/17/2017 01/18/2017 01/19/2017 BUpivacaine (PF) (MARCAINE) 0.5 % (5 mg/mL) injection (CANCELED) ONCE PRN, Starting on Yara 01/19/17 at 1546, Until Yara 01/19/17 at 1949, Intra-Operative (Intra-Procedure), Routine 1546 (Given - Provid er: Carina Lira MD)1554 (Given - Provider: Carina Lira MD) lidocaine (XYLOCAINE) 10 mg/mL (1 %) injection (CANCELED) ONCE PRN, Starting on Yara 01/19/17 at 1547, Until Yara 01/19/17 at 1949, Intra-Operative (Intra-Procedure), Routine 1547 (Given - Provid er: Carina Lira MD)1555 (Given - Provider: Carina Lira MD) No Frequency Medication Order 01/17/2017 01/18/2017 01/19/2017 acetaminophen (TYLENOL) 500 mg tablet 1 dose, Starting on Yara 01/19/17 at 1705, Until Yara 01/19/17 at 1949, GARLAND CASTRO: cabinet override 1715 (Due) documented in this encounter Care Teams Mig Welder Relationship Specialty Start Date End Date Phoenix Guzmán DO [address] [place] [id number] PCP - General General Internal Medicine 02/20/15 documented as of this encounter
--- OUTSIDE RECORDS SUMMARY | 2023-10-23 09:06 | XMS_ITS | Encounter Summary ---
Author Organization [facility] [place] [address] Care Team Providers Care Volleyball Assistant Coach Name Role Phone Phoenix Guzmán DO Primary Care Provider Reason for Visit * Reason Comments Skin Check Encounter Details Date Type Department Care Team (Late st Contact Info) Description 07/25/2017 10:15 AM EDT Office Visit Dermatology at [facility] [address] [place] [address] Dawson Broderick MD [facility] [address] [facility] [address] Dysplastic nevus Social History Tobacco Use Types Packs/Day Years [...] on file documented as of this encounter Patient Instructions * Patient Instructions* Nellie Weiner - 07/25/2017 10:15 AM EDT Treatment and Wound Care Instructions Your treatment today: You have had a shave biopsy of your skin, which is a removal of tissue for examination under a microscope. This wound will heal without stitches. Allow 3-6 weeks for the wound to heal. If bleeding occurs, hold firm pressure against the wound for 15 minutes. If bleeding continues, calls the office or go to your local emergency room. Please allow 1-2 weeks for the biopsy results to return. Your physician or nurse will contact you with the results by phone or letter; follow-up will be discussed at that time. Wound Care Instructions: You will need to keep the dressing placed over the wound dry and intact for 24 hours. Afterwards, perform the following wound care daily: ?? Wash your hands before changing the dressing. ?? Remove the bandage and clean the area with mild soap and water, then gently pat the area dry. ?? Apply a small amount of Vaseline to the area, then cover the wound with a band-aid. Change your dressing daily until the wound is fully healed. ?? A small amount of yellow drainage is part of normal healing. The area might appear as a small depression with redness around the edge of the wound. This is normal. ?? Please contact the office you you notice any of the following signs of infection: increased tenderness, pain, drainage, or redness that becomes hot or hard around the wound. If you have further questions or concerns, please call the office at [phone]. If it is after 5PM, or a holiday or weekend, please call [phone] and ask for the Technical Illustrator on-call. documented in this encounter Progress Notes * Dawson Broderick MD - 07/25/2017 10:15 AM EDT Images from the original note were not included. Gunnar Morin 07/25/2017 [id number] Kandy Broderick MD ([id number]) Chief Problem: 1. Pigmented Lesion and Skin Cancer Examination , Full examination today 2. 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 year old male. Established patient to me. No significant changes in health or medications since last visit. Patient presents to the clinic today for a full skin cancer examination with history as listed above. Specific areas of concern today include left side of face and lip. The area on the nose is scaly and has been there and started after a cyst removal 10 years ago.Has only used vaseline on his face when it gets scaly and rash. -Completed a 12 week course of imiquimod in early June per patient.States he tolerated well with only mild irriation Medications: reviewed All: reviewed Review of Systems: Feels well, no fatigue, no weight loss, no other skin concerns Current Outpatient Prescriptions on File Prior to Visit Medication Sig Dispense Refill ??? imiquimod (ALDARA) 5 % Cream in Packet (after 2 weeks of tazorac) apply topically to the right shaft of the penis once daily Monday-Monday (weekends off) for 6 weeks, 12 each 3 ??? tazarotene (TAZORAC) 0.1 % Cream Apply topically to the right shaft of the penis once daily for2 weeks then stop 30 g 0 ??? tretinoin (RETIN-A) 0.1 % Cream Apply topically to the right shaft of the penis once daily for 2 weeks then stop 20 g 0 ??? aspirin 81 mg [...] soles were also examined. Specific findings: 1. 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 Seborrheic keratosis, located on the trunk and extremities 3. 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 5mm Irregular dark brown macule located on the mid chest, ? DN 5. Seborrheic dermatitis on face Photo taken with patient consent by Dr. Kandy Broderick Assessment/Diagnosis: 1. History of residual melanoma in situ, penis, post excision and imiquimod 2. Seborrheic keratosis. Patient reassured. 3. History of Melanoma 4. ? DN, chest, shave removal biopsy 5. Seborrheic dermatitis on face Procedure: 1. SHAVE REMOVAL : Location: mid chest. Size: 5mm. After lidocaine anesthesia with epinephrine, lesion removed via shave technique, double edge razor, intention of removing entire lesion. Cautery forhemostasis, Vaseline and a band aid placed, would care reviewed. I'll call or write a letter with results. Prescriptions: 1. Rx: Hydrocortisone 2.5% - apply topically to the affected areas on the face once daily Treatment/Plan: Discussion - Spent over half of this visit discussing pathophysiology and the diagnosis, and counselling this patient on treatment options, expectations and follow-up plan. Specifically discussed: 1. Sun avoidance re-emphasized, sunscreen, hats, clothing as always. 2. Combined decision was made to preform a shave removal biopsy today on the mid chest 3. Combined decision was made to treat Seborrheic dermatitis on face with hydrocortisone cream Follow up: 6 months for a skin cancer exam, sooner if needed I am documenting this encounter acting as the scribe for and in the presence of Dr. Broderick,Oneida Leyva LPN and Nellie Weiner I performed the above scribed service and agree with the accuracy of the documentation in this encounter, MD Kandy Carmona M.D. Section of Dermatology documented in this encounter Plan of Treatment Upcoming Encounters Date Type Department Care Team (Late st Contact Info) Description 10/31/2023 9:15 AM EDT Office Visit Dermatology at [facility] [address] [place] [address] Dawson Broderick MD [facility] [address] [place] [address] 07/23/2024 9:30 AM EDT Office Visit Dermatology at [facility] [address] [address] Dawson Broderick MD [facility] [place] [address] documented as of this encounter Procedures Procedure Name Priority Date/Time Associated Diagnosis Comments SPECIMEN TO PATHOLOGY Routine 07/25/2017 11:53 AM EDT Dysplastic nevus SURGICAL PATHOLOGY REPORT Routine 07/25/2017 10:36 AM EDT documented in this encounter Results * Specimen to Pathology (07/25/2017 11:53 AM EDT) AP Specimen 07/25/2017 11:5 3 AM EDT 07/25/2017 3:32 PM EDT Narrative [facility] - 07/25/2017 3:32 PM EDT Specimen requisition ordered. ??Separate Pathology report to follow Resulting Agency Comment Spec In Lab Dawson Broderick MD PATHOLOGY/CYTOL OGY ORDERABLES [facility] [place] [place] [address] * Surgical Pathology Report (07/25/2017 10:36 AM EDT) FINAL DIAGNOSIS (AP) [id number] ? Location: [facility] The signing pathologist has (i) examined the relevant preparation(s) for the specimen(s) and (ii) rendered or confirmed the diagnosis(es). . ?Surgical Pathology DIAGNOSIS Skin, mid chest, shave removal: - Dysplastic lentiginous junctional melanocytic nevus with mild atypia, hyperpigmented. - In these slide sections, the deep and peripheral margins are free. Electronically signed by: ??Maria E Chavez MD Verified: ??07/28/2017 ?Dermatopathologist Performed at: ??-[facility] Dept. of Pathology, [place], [place] ADDITIONAL STUDIES Interpretation of multiple deeper leveled slide sections confirms the diagnosis above. Immunohistochemistry Studies: Formalin-fixed, paraffin-embedded tissue sections are studied using the polymer technique with appropriate positive and negative controls. ??These IHC studies provide the pathologist with adjunctive diagnostic information. Antibody specificity has been verified by testing antibodies on a series of in-house tissues with known immunohistochemical performance characteristics. The clinical interpretation of any antibody positive staining or its absence is evaluated within the context of clinical presentation, morphology, histopathological criteria and other diagnostic tests. Block ? Antibody ?Result (Positive/Negative) A2 ? Melan A ?Positive (in the lesional cells) CLINICAL INFORMATION Specimen Submitted: A - Skin, mid chest, shave removal (1). Clinical History and Diagnosis: 5 mm irregular dark brown macule; DN. SPECIMEN PROCESSING A - Labeled/Fixative: Mid chest, formalin. Quantity/Size: Single, 1.0 x 0.7 x 0.1 cm. Tissue Description: Shave of walker-white skin with a central 0.5 cm irregular, asymmetrical dark brown macule. Sections/Processing: The specimen is inked, sectioned and entirely submitted with the tips appearing in cassette (1) and the body in cassette (2). (T2) ??ejr 07/28/2017 11:54 AM EDT [facility] 07/25/2017 10:3 6 AM EDT Dawson Broderick MD PATHOLOGY/CYTOL OGY ORDERABLES [facility] [place] [address] documented in this encounter Visit Diagnoses Diagnosis Dysplastic nevus Benign neoplasm of skin, site unspecified documented in this encounter Care Teams Volleyball Assistant Coach Relationship Specialty Start Date End Date Phoenix Guzmán DO [address] [place] [address] [place] [id number] PCP - General General Internal Medicine 02/20/15 documented as of this encounter
--- OUTSIDE RECORDS SUMMARY | 2023-10-23 09:06 | XMS_ITS | Encounter Summary ---
[place] [address] Care Team Providers Care Payroll Services Analyst Name Role Phone Phoenix Guzmán Primary Care Provider Encounter Details Date Type Department Care Team (Late st Contact Info) Description 03/09/2017 Telephone Dermatology at [facility] [address] [place] [phone] Nathalia Tobin MD [facility] [place] [address] Social History Tobacco Use Types Packs/Day Years [...] encounter Miscellaneous Notes * Telephone Encounter - Kellee Live Tiki - 03/09/2017 2:47 PM EST Gunnar's is communicating with me through [facility] and believes that she has an appointment with you following the 3:[address] Broderick on 03/14/17. His original appt was 03/15/17 and it was cancelled by Indy with a note that indicated that she believed he no longer needed an appt with you. Would you kindly clarify for me either way and if he does need to schedule with you, please advisethe time that is appropriate. I will communicate either answer, once I hear back from you. documented in this encounter Plan of Treatment Upcoming Encounters Date Type Department Care Team (Late st Contact Info) Description 10/31/2023 9:15 AM EDT Office Visit Dermatology at [facility] [address] [place] [address] Dawson Broderick MD [facility] [address] [place] [address] 07/23/2024 9:30 AM EDT Office Visit Dermatology at [facility] [address] [place] [address] Dawson Broderick MD [facility] [address] [place] [address] documented as of this encounter Visit Diagnoses Not on filedocumented in this encounter Care Teams Payroll Services Analyst Relationship Specialty Start Date End Date Phoenix Guzmán DO [address] [place] [address] [place] [phone] PCP - General General Internal Medicine 02/20/15 documented as of this encounter
--- OUTSIDE RECORDS SUMMARY | 2023-10-23 09:06 | XMS_ITS | Encounter Summary ---
Author Organization [facility] [place] [address] Care Team Providers Care Dry End Operator Name Role Phone Phoenix Guzmán DO Primary Care Provider [phone] Encounter Details Date Type Department Care Team (Late st Contact Info) Description 03/09/2017 Telephone Dermatology at [facility] [address] [place] [address] Nathalia Tobin MD [facility] [place] [address] Social History Tobacco Use Types Packs/Day Years [...] EDT Office Visit Dermatology at [facility] [address] [place] [address] Dawson Broderick MD [facility] [place] [address] 07/23/2024 9:30 AM EDT Office Visit Dermatology at [facility] [address] [place] [address] Dawson Broderick MD [facility] [place] [address] documented as of this encounter Visit Diagnoses Not on filedocumented in this encounter Care Teams Dry End Operator Relationship Specialty Start Date End Date Phoenix Guzmán DO [address] [place] [address] [place] [phone] PCP - General General Internal Medicine 02/20/15 documented as of this encounter
--- OUTSIDE RECORDS SUMMARY | 2023-10-23 09:06 | XMS_ITS | Encounter Summary ---
[place] [address] Care Team Providers Care Asphalt Paving Supervisor Name Role Phone Phoenix Guzmán DO Primary Care Provider [phone] Encounter Details Date Type Department Care Team (Late st Contact Info) Description 06/05/2017 Telephone Dermatology at [facility] [address] [place] [phone] Dawson Broderick MD [facility] [address] [place] [address] Social History Tobacco Use Types Packs/Day Years [...] encounter Miscellaneous Notes * Telephone Encounter - KareySalena Tiki - 06/05/2017 11:41 AM EST CALLED AND LEFT MESSAGE FOR Gunnar Morin REQUESTING A CALL BACK TO SCHEDULE HIS APPT WE HAD TO CANCEL ON 07/11 documented in this encounter Plan of Treatment Upcoming Encounters Date Type Department Care Team (Late st Contact Info) Description 10/31/2023 9:15 AM EDT Office Visit Dermatology at [facility] [address] [place] [address] Dawson Broderick MD [facility] [place] [address] 07/23/2024 9:30 AM EDT Office Visit Dermatology at [facility] [address] [place] [address] Dawson Broderick MD [facility] [place] [address] documented as of this encounter Visit Diagnoses Not on filedocumented in this encounter Care Teams Asphalt Paving Supervisor Relationship Specialty Start Date End Date Phoenix Guzmán DO [address] [place] [address] JOHN Laboy [phone] PCP - General General Internal Medicine 02/20/15 documented as of this encounter
--- OUTSIDE RECORDS SUMMARY | 2023-10-23 09:06 | XMS_ITS | Encounter Summary ---
[place] [address] Care Team Providers Care Negative Notcher Name Role Phone Phoenix Guzmán DO Primary Care Provider [phone] Reason for Visit * Reason Comments Follow-up Encounter Details Date Type Department Care Team (Late st Contact Info) Description 02/09/2017 11:00 AM EST Office Visit Dermatology at [facility] [address] [place] [address] Dawson Broderick MD [facility] DR MYKE [place] [address] Malignant melanoma, unspecified site Social History Tobacco Use Types Packs/Day Years [...] this encounter Patient Instructions * Patient Instructions* Rosibel Flores LPN - 02/09/2017 11:00 AM EST Applying Aldara (Imiquimod Cream) Aldara is used to treat a number of skin conditions including warts and skin cancers. Currently Aldara comes packaged in single use packets. If you are applying Aldara to a small area, you may be able to use a single packet more than once. 1. Before applying Aldara, wash your hands and the treatment area with mild soap and water and dry thoroughly. Insert a small clean pin or needle into the packet near the tip and squeeze some cream onto your fingertip. 2. Apply a thin layer of Aldara cream onto the treatment area and rub gently into the skin until the cream vanishes. Do not use more Aldara cream than is needed to cover the treatment area. 3. After applying the cream, fold the top of the packet over and save for the next application. Wash your hands with mild soap and water. Dispose empty packets in a place where children cannot reach. 4. Leave Aldara cream on the affected area for 6 to 10 hours. Do not shower or bathe during this time. 5. After 6 to 10 hours, the area where the Aldara cream was applied shoul be washed with mild soap and water. Aldara Cream is for skin use only. Do not take by mouth or use in or near your eyes. General Advice ??? Do not cover the treatment area with airtight bandages or other dressings after you have applied Aldara cream. Cotton gauze dressings can be used if needed. ??? Do not use more than the recommended amount of Aldara cream. A thin layer that completely covers the treatment area is enough. Using too much Aldara cream could increase the risk of severe skin reactions. ??? Stop using Aldara cream if you become , and do not use if you are . ??? Aldara cream has been prescribed for your use only. Do not give it to anyone else even if you think their condition is the same as yours. ??? Your doctor may recommend that you take a rest period of several days if you experience a severe skin reaction while using Aldara. What to Expect Aldara activates the body???s own immune system to fight certain skin diseases. Common Side Effects of Aldara The most common side effects with Aldara cream are skin reactions at the treatment site including: ??? Redness ??? Swelling ??? A sore, blister, or ulser ??? Skin that becomes hard or thickened ??? Skin peeling ??? Scabbing and crusting ??? Pain ??? Tenderness ??? Itching ??? Burning Storage Conditions Aldara cream should be kept in a cool dry place where the temperature stays below 25??C (77??F). Donot freeze. Keep the sachets of Aldara where children cannot reach them. Active Ingredients Each 250mg of Aldara cream 5% contains 12.5mg of the active ingredient, imiquimod. Aldara cream also contains isostearic acid, benzyl alcohol, cetyl alcohol, stearyl alcohol, white soft paraffin, polysorbate 60, sorbitan monostearate, glycerol, methyl hydroxybenzoate, propyl hydroxybenzoate, xantham gum, purified water. For more information visit Monik???s website: http://www.[employer]/aldara.jsp documented in this encounter Progress Notes * Dawson Broderick MD - 02/09/2017 11:00 AM EST Gunnar Morin 02/09/2017 [id number] Kandy Broderick MD ([id number]) Chief Problem: 1. 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 year old male. Established patient to me. With , see old notes No significant changes in health or medications since last visit on 12/22/16. Wound/excision site, almost completelyhealed, scar only, no contraction, barely visible light pigmentation. This MIS is residual, and needs treatment, but not aggressive, and we have decided to pursue this topical route. Radiation, and intralesional chemotherapy, not great options. More surgery is an option, but ? Contracture, failure to clear, multiple surgeries, repair? So will try immunotherapy first, but will keep this as a second choice if imiquimod does not work. So, starting imiquimod with retinoid today. Schedule and plan as below, spend over 30 minutes discussing details. Medications: reviewed All: reviewed Review of Systems: [...] alert, well-appearing and in no noticeable distress. An exam of the skin from the neck up was performed. This includes examination of the skin of the face, ears, scalp, and neck. Specific findings: 1. 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 Melanoma in-situ, treatment with immunotherapy, imiquimod Prescriptions: 1. tretinoin (RETIN-A) 0.1 % Cream Apply topically to the right shaft of the penis once daily for 2weeks then stop, Disp-20 g, R-0 2. imiquimod (ALDARA) 5 % Cream in Packet (after 2 weeks of retina) apply topically to the right shaft of the penis once daily Monday-Monday (weekends off) for 6 weeks, Disp-12 each, R-3 Treatment/Plan: Discussion - Spent over half of this visit discussing pathophysiology and the diagnosis, and counselling this patient on treatment options, expectations and follow-up plan. - Specifically discussed: 1. Reviewed pathology report in depth, twice, with the patient and his today. Different treatment options were reviewed today including surgery or starting the use of topical imiquimod. Patient aware that he will have inflammation and it can be a little bit uncomfortable. A combined decision was made to treat the area with tretinoin 0.1% cream once nightly for 2 weeks and then 12 weeks of imiquimod once nightly Monday - Monday taking the weekend off. Pictures were shown to patient and he is aware of what the reaction should look like. Patient will follow up with us in 6 weeks. Patient was instructed to call with any questions or concerns. Patient aware that insurance may not cover his p rescriptions but he should still purchase them. Follow up: 6 weeks for imiquimod therapy follow up, sooner if needed I am documenting this encounter acting as the scribe for and in the presence of Dr. Broderick,Rosibel Flores LPN and Nellie Weiner I performed the above scribed service and agree with the accuracy of the documentation in this encounter, MD Kandy Carmona M.D. Section of Dermatology documented in this encounter Plan of Treatment Upcoming Encounters Date Type Department Care Team (Late st Contact Info) Description 10/31/2023 9:15 AM EDT Office Visit Dermatology at [facility] [address] [place] [address] Dawson Broderick MD [facility] [place] [address] 07/23/2024 9:30 AM EDT Office Visit Dermatology at [facility] [address] [place] [address] Dawson Broderick MD [facility] [place] [address] documented as of this encounter Visit Diagnoses Diagnosis Malignant melanoma, unspecified site documented in this encounter Care Teams Negative Notcher Relationship Specialty Start Date End Date Phoenix Guzmán DO [address] [place] [address] [place] [address] PCP - General General Internal Medicine 02/20/15 documented as of this encounter
--- OUTSIDE RECORDS SUMMARY | 2023-10-23 09:06 | XMS_ITS | Encounter Summary ---
[place] [address] Care Team Providers Care Store Administrative Assistant Name Role Phone Phoenix Guzmán Primary Care Provider [phone] Encounter Details Date Type Department Care Team (Latest Contact Info) Description 03/14/2017 12:14 PM EST - 03/14/2017 11:59 PM EST Hospital Encounter [place]ematology [place] [address] Malignant melanoma, unspecified site Discharge Disposition: Home Social History Tobacco Use [...] See Admin Instructions. Reported on 07/28/2016 04/13/2015 imiquimod (ALDARA) 5 % Cream in PacketIndications:Vinny zamudio melanoma, unspecified site (after 2 weeks of tazorac) apply topically to the right shaft of the penis once daily Monday-Monday (weekends off) for 6 weeks, 12 each 3 02/09/2017 11/09/2017 tazarotene (TAZORAC) 0.1 % CreamIndications:Malign ant melanoma, unspecified site Apply topically to the right shaft of the penis once daily for 2 weeks then stop 30 g 02/09/2017 01/08/2018 tretinoin (RETIN-A) 0.1 % CreamIndications:Malign ant melanoma, unspecified site Apply topically to the [...] in a 24 hour period. 09/22/2016 12/02/2017 documented as of this encounter Plan of Treatment Upcoming Encounters Date Type Department Care Team (Late st Contact Info) Description 10/31/2023 9:15 AM EDT Office Visit Dermatology at [facility] [address] [place] [address] Dawson Broderick MD [facility] [address]KE [place] [address] 07/23/2024 9:30 AM EDT Office Visit Dermatology at [facility] [address] [place] [address] Dawson Broderick MD [facility] DR [address]KE [place] [address] documented as of this encounter Procedures Procedure Name Priority Date/Time Associated Diagnosis Comments HEMOGRAM STAT 03/14/2017 12:21 PM EST Malignant melanoma, unspecified site DIFFERENTIAL, AUTOMATED STAT 03/14/2017 12:21 PM EST Malignant melanoma, unspecified site CBC (WITH DIFF) STAT 03/14/2017 12:21 PM EST Malignant melanoma, unspecified site LACTATE DEHYDROGENASE STAT 03/14/2017 12:21 PM EST Malignant melanoma, unspecified site COMPREHENSIVE METABOLIC PANEL (NON-FASTING) STAT 03/14/2017 12:21 PM EST Malignant melanoma, unspecified site documented in this encounter Results * Differential, Automated (03/14/2017 12:21 PM EST) Neutrophils % 63.1 % [facility] Neutr Abs (ANC) 3.12 1.70 - 6.10 x10(3)/[facility] Lymphocytes % 23.0 % [facility] Lymphocytes Abs 1.1 0.9 - 3.2 x10(3)/[facility] Monocytes % 10.1 % [facility] Monocyte Abs 0.5 0.3 - 0.9 x10(3)/[facility] Eosinophils % 2.6 % [facility] Eosinophils Abs 0.1 0.0 - 0.4 x10(3)/[facility] Basophils % 0.6 % [facility] Basophils Abs 0.0 0.0 - 0.1 x10(3)/[facility] Immature Gran % 0.60 % [facility] Comment: Immature granulocytes(IG's)percentage and absolute count will include metamyelocytes, myelocytes, and promyelocytes. Blood smears from CBCs yielding IG's will be scanned manually for concordance. If this scan disagrees with the automated IG or if promyelocytes are noted, a manual differential will be performed. Geovanna Gran Abs 0.03 0.00 - 0.04 x10(3)/[facility] Blood specimen (specimen) 03/14/2017 12:21 PM EST 03/14/2017 12:35 PM EST Narrative Resulting Agency Comment Spec In Lab Cielo Yin MD HEMATOLOGY ORDERABLE S [facility] [place] [address] * (ABNORMAL) Hemogram (03/14/2017 12:21 PM EST) WBC 5.0 4.0 - 9.5 x10(3)/[facility] RBC 4.79 4.58 - 5.54 x10(6)/[facility] Hemoglobin 15.4 13.7 - 16.5 gm/dL [facility] Hematocrit 45.1 40.5 - 48.5 % [facility] MCV 94.2(H) 82.9 - 93.1 [facility] MCH 32.2(H) 27.5 - 32.1 pg [facility] MCHC 34.1 32.0 - 35.7 gm/dL [facility] Platelets 224 145 - 357 x10(3)/[facility] RDWSD 45.5(H) 36.0 - 45.0 [facility] RDWCV 13.1 11.4 - 13.8 % [facility] MPV 10.0 7.6 - 12.9 [facility] nRBC % Auto 0.0 % [facility] nRBC Abs Auto 0.000 0.000 - 0.000 x10(3)/[facility] Blood specimen (specimen) 03/14/2017 12:21 PM EST 03/14/2017 12:35 PM EST Narrative Resulting Agency Comment Spec In Lab Cielo Yin MD HEMATOLOGY ORDERABLE S [facility] [place] [address] * Lactate Dehydrogenase (03/14/2017 12:21 PM EST) Pathologist [facility] 184 110 - 220 unit/L [facility] Blood specimen (specimen) 03/14/2017 12:21 PM EST 03/14/2017 12:35 PM EST Narrative Resulting Agency Comment Spec In Lab Cielo Yin MD CHEMISTRY ORDERABLES Performing Organization Address [facility] Co de Phone Number [facility] [place] [address] * (ABNORMAL) Comprehensive metabolic panel (non-fasting) (03/14/2017 12:21 PM EST) [facility] Glucose Lvl 122 65 - 199 mg/dL [facility] Comment:Diabetes: >=200 mg/d L plus symptoms BUN 19 10 - 20 mg/dL [facility] Creatinine 1.36 0.80 - 1.50 mg/dL [facility] Sodium 139 135 - 145 mmol/L [facility] Potassium 5.0 3.5 - 5.0 mmol/L [facility] Comment: Please note: ??Patients with WBC >100,000 may have falsely elevated Potassium levels. ??For accurate Potassium quantification in these patients send serum separator tube (gold top) for subsequent determinations. ??Contact the Clinical Chemistry Laboratory if there are any questions. Chloride 100 98 - 107 mmol/L [facility] CO2 27 22 - 31 mmol/L [facility] Anion Gap 12 5 - 15 mmol/L [facility] Calcium 8.9 8.5 - 10.5 mg/dL [facility] Total Protein 7.4 6.1 - 8.0 gm/dL [facility] Albumin 4.2 3.2 - 5.2 gm/dL [facility] AST 18 0 - 39 unit/L [facility] ALT 19 0 - 55 unit/L [facility] Alk Phos 55 40 - 120 unit/L [facility] Total Bilirubin 0.3 0.2 - 1.3 mg/dL [facility] Estimated GFR 52(L) >=60 [facility] Comment: The reported eGFR should be multiplied by 1.2 for patients. The MDRD is not an appropriate measure of renal function for patients with body mass extremes or in patients with acute kidney failure. http://[employer]/DHnkdep http://[employer]/DHMCnkf Blood specimen (specimen) 03/14/2017 12:21 PM EST 03/14/2017 12:35 PM EST Narrative Resulting Agency Comment Spec In Lab Cielo Yin MD CHEMISTRY ORDERABLES [facility] [place] [address] documented in this encounter Visit Diagnoses Diagnosis Malignant melanoma, unspecified site documented in this encounter Care Teams Store Administrative Assistant Relationship Specialty Start Date End Date Phoenix Guzmán DO [address] [place] [address] [place] [phone] PCP - General General Internal Medicine 02/20/15 documented as of this encounter
--- OUTSIDE RECORDS SUMMARY | 2023-10-23 09:06 | XMS_ITS | Encounter Summary ---
[place] [address] Care Team Providers Care Collection Supervisor Name Role Phone Phoenix Guzmán DO Primary Care Provider [phone] Encounter Details Date Type Department Care Team (Late st Contact Info) Description 02/09/2017 Orders Only Hematology [place] [address] Cielo Yin MD [facility] DR HEMATOLOGY/[place] [address] Malignant melanoma, unspecified site Social History Tobacco [...] 9:15 AM EDT Office Visit Dermatology at [facility] [address] [place] [phone] Dawson Broderick MD [facility] [address] [place] [place] [address] 07/23/2024 9:30 AM EDT Office Visit Dermatology at [facility] [address] [place] [address] Dawson Broderick MD [facility] [place] [address] documented as of this encounter Results * Lactate Dehydrogenase (03/14/2017 12:21 PM EST) Pathologist [facility] L[facility] 184 110 - 220 unit/L [facility] Blood specimen (specimen) 03/14/2017 12:21 PM EST 03/14/2017 12:35 PM EST Narrative Resulting Agency Comment Spec In Lab Cielo Yin MD CHEMISTRY ORDERABLES [facility] [place] [address] * (ABNORMAL) Comprehensive metabolic panel (non-fasting) (03/14/2017 12:21 PM EST) Pathologist [facility] Glucose Lvl 122 65 - 199 mg/dL [facility] Comment:Diabetes: >=200 mg/d L plus symptoms BUN 19 10 - 20 mg/dL [facility] Creatinine 1.36 0.80 - 1.50 mg/dL [facility] Sodium 139 135 - 145 mmol/L [facility] Potassium 5.0 3.5 - 5.0 mmol/L [facility] Comment: Please note: ??Patients with WBC >100,000 may have falsely elevated Potassium levels. ??For accurate Potassium quantification in these patients send serum separator tube (gold top) for subsequent determinations. ??Contact the Clinical Chemistry Laboratory if there are any questions. Chloride 100 98 - 107 mmol/L [facility] CO2 27 22 - 31 mmol/L [facility] Anion Gap 12 5 - 15 mmol/L [facility] Calcium 8.9 8.5 - 10.5 mg/dL [facility] Total Protein 7.4 6.1 - 8.0 gm/dL [facility] Albumin 4.2 3.2 - 5.2 gm/dL [facility] AST 18 0 - 39 unit/L [facility] ALT 19 0 - 55 unit/L [facility] Alk Phos 55 40 - 120 unit/L [facility] Total Bilirubin 0.3 0.2 - 1.3 mg/dL [facility] Estimated GFR 52(L) >=60 [facility] Comment: The reported eGFR should be multiplied by 1.2 for patients. The MDRD is not an appropriate measure of renal function for patients with body mass extremes or in patients with acute kidney failure. http://[employer]/DHnkdep http://[employer]/DHMCnkf Blood specimen (specimen) 03/14/2017 12:21 PM EST 03/14/2017 12:35 PM EST Narrative Resulting Agency Comment Spec In Lab Cielo Yin MD CHEMISTRY ORDERABLES [facility] [place] [address] documented in this encounter Visit Diagnoses Diagnosis Malignant melanoma, unspecified site documented in this encounter Care Teams Collection Supervisor Relationship Specialty Start Date End Date Phoenix Guzmán DO [address] [place] [address] [place] [phone] PCP - General General Internal Medicine 02/20/15 documented as of this encounter
--- OUTSIDE RECORDS SUMMARY | 2023-10-23 09:06 | XMS_ITS | Encounter Summary ---
Author Organization [facility] [place] [address] Care Team Providers Care Robotics Specialist Name Role Phone Phoenix Guzmán DO Primary Care Provider [phone] Encounter Details Date Type Department Care Team (Latest Contact Info) Description 07/25/2017 11:07 AM EDT - 07/25/2017 11:59 PM EDT Hospital Encounter XRay at [address] [place] [address] Walter Rae MD [facility] [place] [address] Status post total replacement of right hip [...] 04/13/2015 imiquimod (ALDARA) 5 % Cream in PacketIndications:Malig nant melanoma, unspecified site (after 2 weeks of [...] 9:15 AM EDT Office Visit Dermatology at [facility] [address] [place] [address] Dawson Broderick MD [facility] DR MYKE [place] [address] 07/23/2024 9:30 AM EDT Office Visit Dermatology at [facility] [address] [place] [address] Dawson Broderick MD [facility] DR MYKE [place] [address] documented as of this encounter Procedures Procedure Name Priority Date/Time Associated Diagnosis Comments XR PELVIS AND HIP 2 VIEWS RIGHT Routine 07/25/2017 11:27 AM EDT Status post total replacement of right hip documented in this encounter Results * XR Pelvis w AP & Lat Hip Right (07/25/2017 11:27 AM EDT) Anatomical Region Laterality Modality Pelvis, Hip Right Digital Radiogra phy Impressions 07/25/2017 2:30 PM EDT No change Narrative 07/25/2017 2:30 PM EDT EXAMINATION: XR PELVIS W AP AND LAT HIP RIGHT CLINICAL HISTORY: right hip pain TECHNIQUE: AP pelvis and AP and lateral RIGHT hip COMPARISON: 01/19/2017 FINDINGS: This been no change in appearance or alignment of the RIGHT total hip arthroplasty since patient's prior study with no evidence of further complication. The periprosthetic lucency is seen on the CT from April 2016 adjacent to the proximal femoral component are unchanged. Procedure Note Nadege Mcgrath MD - 07/25/2017 EXAMINATION: XR PELVIS W AP AND LAT HIP RIGHT CLINICAL HISTORY: right hip pain TECHNIQUE: AP pelvis and AP and lateral RIGHT hip COMPARISON: 01/19/2017 FINDINGS: This been no change in appearance or alignment of the RIGHT total hip arthroplasty since patient's prior study with no evidence of further complication. The periprosthetic lucency is seen on the CT from April2016 adjacent to the proximal femoral component are unchanged. IMPRESSION No change Walter Rae MD IMG DX ORDERABLES documented in this encounter Visit Diagnoses Diagnosis Status post total replacement of right hip documented in this encounter Care Teams Robotics Specialist Relationship Specialty Start Date End Date Phoenix Guzmán DO [address] [place] [address] [place] [phone] PCP - General General Internal Medicine 02/20/15 documented as of this encounter
--- OUTSIDE RECORDS SUMMARY | 2023-10-23 09:06 | XMS_ITS | Encounter Summary ---
[place] [address] Care Team Providers Care Continuity Reader Name Role Phone Phoenix Guzmán Primary Care Provider [phone] Reason for Visit * Reason Onset Date Comments Pre Procedure Call 10/17/2017 Encounter Details Date Type Department Care Team (Late st Contact Info) Description 10/17/2017 Telephone [place] [address] Italo Hanna MD [facility] [place] [address] Pre Procedure Call Social History Tobacco Use [...] * Telephone Encounter - Elizabeth Michael - 10/17/2017 11:21 AM EDT Called patient to schedule revision knee surgery with both Dr. Hanna & Dr. Rae on a Monday per their request. The earliest the two of them have is 01/03/18. This date was not acceptable to patient. Let patient know we would send a message to the surgeons to see if we could get an earlier date or not. If not, patient states that he is going to go elsewhere. Sent an email to Dr. Rae &a mp; Dr. Hanna. documented in this encounter Plan of Treatment Upcoming Encounters Date Type Department Care Team (Late st Contact Info) Description 10/31/2023 9:15 AM EDT Office Visit Dermatology at [facility] [address] [place] [address] Dawson Broderick MD [facility] [place] [address] 07/23/2024 9:30 AM EDT Office Visit Dermatology at [facility] [address] [place] [address] Dawson Broderick MD [facility] [place] [address] documented as of this encounter Visit Diagnoses Not on filedocumented in this encounter Care Teams Continuity Reader Relationship Specialty Start Date End Date Phoenix Guzmán DO [address] [place] [address] [place] [address] PCP - General General Internal Medicine 02/20/15 documented as of this encounter
--- OUTSIDE RECORDS SUMMARY | 2023-10-23 09:06 | XMS_ITS | Encounter Summary ---
[place] [address] Care Team Providers Care [employer] Caretaker Name Role Phone Phoenix Guzmán DO Primary Care Provider [phone] Reason for Visit * Reason Comments Skin Check Encounter Details Date Type Department Care Team (Late st Contact Info) Description 03/14/2017 3:30 PM EST Office Visit Dermatology at [facility] [address] [place] [address] Dawson Broderick MD [facility] DR [address] STE[place] [address] Melanoma in situ, unspecified site; SK (seborrheic keratosis); Dermatofibroma; Superficial basal cell carcinoma Social History Tobacco Use Types Packs/Day Years [...] Progress Notes * Dawson Broderick MD - 03/14/2017 3:30 PM EST Images from the original note were not included. Gunnar Morin 03/14/2017 [id number] Kandy Broderick MD ([id number]) Chief Problem: 1. Pigmented Lesion and Skin Cancer Examination , Full examination today 2. 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 year old male. Established patient to me. No significant changes in health or medications since last visit. Doing well. Good spirits. Spouse present. Patient presents to the clinic today for a full skin cancer examination with history as listed above. No specific areas of concern today. Tolerating the imiquimod to his penis. Moderate pruritus and inflammation of the glans, probably smear effect. Willing to continue. He is aware he needs to complete the 12 week course. Biopsy after completed course. Going well. Here today for full skin examination Medications: reviewed All: reviewed Review of Systems: Feels well, no fatigue, no weight loss, no other skin concerns, he has not had any issues since last visit. Current Outpatient Prescriptions on File Prior to [...] also examined. Specific findings: 1. 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 Seborrheic keratosis, located on the trunk and extremities 3. 1.0cm [place] pearly papule located on the mid back, superficial basal cell carcinoma (sBCC) 4. Dermatofibroma (DF) located on the left leg, reassured 5. Sebaceous Hyperplasia located on the face Photo taken with patient consent by Dr. Kandy Broderick Assessment/Diagnosis: 1. Melanoma 1.76 mm, residual melanoma in-situ, ongoing imiquimod immunotherapy, the mid-right shaft of the penis 2. Seborrheic keratosis. Patient reassured. 3. ? sBCC, treated with cryotherapy today 4. Dermatofibroma (DF), benign. Patient reassured 5. Sebaceous Hyperplasia Procedure: 1. LN2 x 2 to sBCC x 1 Treatment/Plan: Discussion - Spent over half of this visit discussing pathophysiology and the diagnosis, and counselling this patient on treatment options, expectations and follow-up plan. - Specifically discussed: 1. Sun avoidance re-emphasized, sunscreen, hats, clothing as always. 2. Patient aware that this is a 12 week course, and that he should continue to apply imiquimod Monday - Monday taking the weekends off. If the penis becomes too irritated is is OK to apply 3 days a week. Continue to apply Vaseline to the head of the penis to act as a protectant. Discussed with patient that after the 12 week treatment we can either preform a biopsy to confirm the melanoma is gone or just use the shields lamp to look for pigment. Patient verbalized that he would rather no have another biopsy 3. Combined decision was made to treat the sBCC x 1 with cryotherapy today Follow up: 4 months for a imiquimod follow up, sooner if needed I am [...] 9:15 AM EDT Office Visit Dermatology at [facility] [address] [place] [address] Dawson Broderick MD [facility] [place] [address] 07/23/2024 9:30 AM EDT Office Visit Dermatology at [facility] [address] [place] [address] Dawson Broderick MD [facility] [place] [address] documented as of this encounter Visit Diagnoses Diagnosis Melanoma in situ, unspecified site SK (seborrheic keratosis) Other seborrheic keratosis Dermatofibroma Benign neoplasm of skin, site unspecified Superficial basal cell carcinoma Basal cell carcinoma of skin, site unspecified documented in this encounter Care Teams [employer] Caretaker Relationship Specialty Start Date End Date Phoenix Guzmán DO [address] [place] [address] [place] [phone] PCP - General General Internal Medicine 02/20/15 documented as of this encounter
--- OUTSIDE RECORDS SUMMARY | 2023-10-23 09:06 | XMS_ITS | Encounter Summary ---
Author Organization [facility] [place] [address] Care Team Providers Care Gold Stamper Name Role Phone DevantePhoenix orozco Primary Care Provider Reason for Visit * Reason Comments Follow-up right hip * Auth/Cert Specialty Diagnoses / Procedures Referred [...] Expiration Date Visits Re quested Visits Authorized [id number] 1 1 Encounter Details Date Type Department Care Team (Late st Contact Info) Description 01/19/2017 8:10 AM EDT Office [place] [phone] Walter Rae MD [facility] [place] [address] Status post total replacement of right hip [...] Sign Reading Time Taken Comments Blood Pressure 122/77 01/19/2017 8:32 AM EDT Pulse 76 01/19/2017 8:32 AM EDT Temperature 36.3 ??C (97.4 ??F) 01/19/2017 8:32 AM ED T Respiratory Rate - - Oxygen Saturation - - Inhaled Oxygen Concentration - - Weight 127 kg (280 lb) 01/19/2017 8:32 AM EDT ve rbal Height 182.9 cm (6') 01/19/2017 8:32 AM EDT verb al Body Mass Index 37.97 01/19/2017 8:32 AM EDT documented in this encounter Progress Notes * Walter Rae MD - 01/19/2017 8:10 AM EDT Interval history: Patient is a 71-year-old male who is seen today status post right hip revision with head and liner exchange on 06/29/2016. He's been, it with 2 dislocations. First dislocation was not until 6 weeks postop. He then redislocated once other time. He has been in since that time. He comes today discussed treatment options. He has no neurovascular changes. Pain about the hip. Feels that her hip feels different than it did before. Exam: Sitting in no apparent distress Ambulates with an antalgic gait. Hip flexion to approximately 90?? and stable. Distal neurovasculargrossly intact X-rays today show no interval change in alignment hip is concentrically reduced. 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 I did discuss with him today that only nonoperative management at this point would be a hip abduction orthosis. I did discuss that the chances the hip staying in withthis orthosis is still not great. With 2 dislocations the chance of being a chronic dislocator is high. I discussed revision of the vertically placed acetabular component. At this point, patient is dealing with significant other medical issues in the form of a possible melanoma diagnosis. I think he needs to deal with these issues and a trial of the hip abduction orthosis. If he does feel with the hip abduction orthosis I think revision arthroplasty is his only option. documented in this encounter Plan of Treatment Upcoming Encounters Date Type Department Care Team (Late st Contact Info) Description 10/31/2023 9:15 AM EDT Office Visit Dermatology at [facility] [address] [place] [address] Dawson Broderick MD [facility] [place] [address] 07/23/2024 9:30 AM EDT Office Visit Dermatology at [facility] [address] [place] [address] Dawson Broderick MD [facility] [place] [address] documented as of this encounter Visit Diagnoses Diagnosis Status post total replacement of right hip documented in this encounter Care Teams Gold Stamper Relationship Specialty Start Date End Date Phoenix Guzmán DO [address] [place] [address] [place] [address] PCP - General General Internal Medicine 02/20/15 documented as of this encounter
--- OUTSIDE RECORDS SUMMARY | 2023-10-23 09:06 | XMS_ITS | Encounter Summary ---
[place] [address] Care Team Providers Care Acute Care Nurse Name Role Phone Phoenix Guzmán DO Primary Care Provider [phone] Reason for Visit * Reason Comments Follow Up Surgery Bilat TKA- R ELZBIETA Encounter Details Date Type Department Care Team (Late st Contact Info) Description 10/12/2017 2:20 PM EDT Office [place] [address] Walter Rae MD [facility] [place] [address] Status post total replacement of right hip [...] Sign Reading Time Taken Comments Blood Pressure 124/76 10/12/2017 2:23 PM EDT Pulse 89 10/12/2017 2:23 PM EDT Temperature - - Respiratory Rate - - Oxygen Saturation - - Inhaled Oxygen Concentration - - Weight 135.3 kg (298 lb 4.8 oz) 10/12/2017 2:23 PM EDT measured Height 182.9 cm (6') 10/12/2017 2:23 PM EDT verb al Body Mass Index 40.46 10/12/2017 2:23 PM EDT documented in this encounter Progress Notes * Walter Rae MD - 10/12/2017 2:20 PM EDT History present illness: Patient is a 72-year-old male presents today status post right hip head and liner exchange and 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 His first dislocation was 5-1/2 months after his surgery. At that point, he had 2 dislocations. He subsequently did not have a dislocation for 8 months after this. He's had 2 recent dislocations. He notes that he's not doing anything out of the ordinary when dislocating including his last dislocation when he was tying his shoes on 04 October. I had [facility] in [facility] without potential revision surgery. He also has bilateral knee replacements that are functioning well for him. Exam: Sitting in no apparent distress He relates without antalgic gait. CT scan right hip was reviewed today which reveals well fixed acetabular femoral components. 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 There is also evidence of ostial lysis within theacetabulum with evidence of likely bone grafting. His acetabular cup is neutral to slightly retroverted per my read. His femoral stem appears to be appropriately positioned. X-rays of his bilateral knee replacements show no obvious signs of failure, subsidence, loosening. 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 I reviewed with he and his CT findings of slightly neutral to retroverted acetabular component. I discussed the need for acetabular revision and possible femoral revision if needed. I discussed the risks and benefits of this procedure with him. I discussed the use of a dual mobility construct. However, I felt like patient has lost his confidence in me with regards to his right hip. I discussed this with he and his . He noted that done good work on both his knees but feels like his hip is functioning well before surgery and that is now sign ificantly limiting the quality of his life. I think he also feels that I thought that he absolutelyneeded his prior surgery. I apologize if he felt this way I would never make anyone have surgery. Ithink at some point, he certainly would need revision of his right acetabulum due to the significant osteolysis and eccentric wear. I discussed the difficult nature of his problem. I work hard to gethim on the surgical schedule. I discussed having him see my partner Dr. Hanna for second opinion and possible surgical intervention. The family would like for us to possibly do the surgery together if possible. I discussed with him potentially wearing his hip abduction orthosis until the time of surgery. documented in this encounter Plan of Treatment Upcoming Encounters Date Type Department Care Team (Late st Contact Info) Description 10/31/2023 9:15 AM EDT Office Visit Dermatology at [facility] [address] [place] [address] Dawson Broderick MD [facility] [place] [address] 07/23/2024 9:30 AM EDT Office Visit Dermatology [facility] [address] [place] [address] Dawson Broderick MD [facility] [place] [address] documented as of this encounter Visit Diagnoses Diagnosis Status post total replacement of right hip documented in this encounter Care Teams Acute Care Nurse Relationship Specialty Start Date End Date Phoenix Guzmán DO [address] [place] [address] [place] [address] PCP - General General Internal Medicine 02/20/15 documented as of this encounter
--- OUTSIDE RECORDS SUMMARY | 2023-10-23 09:06 | XMS_ITS | Encounter Summary ---
[place] [address] Care Team Providers Care Communications Maintainer Name Role Phone Phoenix Guzmán DO Primary Care Provider [phone] Encounter Details Date Type Department Care Team (Latest Contact Info) Description 11/09/2017 12:40 PM EDT Laboratory [place] [address] Instability of hip joint, right; Debility; Pain [...] 9:15 AM EDT Office Visit Dermatology at [facility] [address] [place] [phone] Dawson Broderick MD [facility] [place] [address] 07/23/2024 9:30 AM EDT Office Visit Dermatology at [address] [place] [phone] Dawson Broderick MD [facility] JONYJE[place]IE [place] [address] documented as of this encounter Procedures Procedure Name Priority Date/Time Associated Diagnosis Comments ABORH RECHECK STATUS Routine 11/09/2017 12:50 PM EDT CRP, ACUTE INFLAMMATION Routine 11/09/2017 12:50 PM EDT Instability of hip joint, right Debility Pain in extremity, unspecified extremity HEMOGRAM Routine 11/09/2017 12:50 PM EDT Instability of hip joint, right Debility Pain in extremity, unspecified extremity DIFFERENTIAL, AUTOMATED Routine 11/09/2017 12:50 PM EDT Instability of hip joint, right Debility Pain in extremity, unspecified extremity TYPE AND SCREEN, SDP (FUTURE SURGERY, [facility] SAME DAY PROGRAM ONLY) Routine 11/09/2017 12:50 PM EDT Instability of hip joint, right Debility Pain in extremity, unspecified extremity ABO/RH TYPING Routine 11/09/2017 12:50 PM EDT Instability of hip joint, right Debility Pain in extremity, unspecified extremity APTT Routine 11/09/2017 12:50 PM EDT Instability of hip joint, right Debility Pain in extremity, unspecified extremity SEDIMENTATION RATE Routine 11/09/2017 12 :50 PM EDT Instability of hip joint, right Debility Pain in extremity, unspecified extremity PROTHROMBIN TIME Routine 11/09/2017 12:5 0 PM EDT Instability of hip joint, right Debility Pain in extremity, unspecified extremity CBC (WITH DIFF) Routine 11/09/2017 12:50 PM EDT Instability of hip joint, right Debility Pain in extremity, unspecified extremity ANTIBODY SCREEN Routine 11/09/2017 12:50 PM EDT Instability of hip joint, right Debility Pain in extremity, unspecified extremity BASIC METABOLIC PANEL (NON-FASTING) Routine 11/09/2017 12:50 PM EDT Instability of hip joint, right Debility Pain in extremity, unspecified extremity documented in this encounter Results * ABORH Recheck Status (11/09/2017 12:50 PM EDT) ABORH Type Recheck Completed [facility] Blood specimen (specimen) 11/09/2017 12:50 PM EDT 11/09/2017 1:23 PM EDT Narrative Resulting Agency Comment Spec In Lab Italo Hanna MD BLOOD BANK LAB FLORINDA CLEMENTS [facility] [place] [address] * Differential, Automated (11/09/2017 12:50 PM EDT) Neutrophils % 61.7 % [facility] Neutr Abs (ANC) 3.69 1.70 - 6.10 x10(3)/[facility] Lymphocytes % 25.5 % [facility] Lymphocytes Abs 1.5 0.9 - 3.2 x10(3)/[facility] Monocytes % 9.0 % [facility] Monocyte Abs 0.5 0.3 - 0.9 x10(3)/[facility] Eosinophils % 2.7 % [facility] Eosinophils Abs 0.2 0.0 - 0.4 x10(3)/[facility] Basophils % 0.8 % [facility] Basophils Abs 0.0 0.0 - 0.1 x10(3)/[facility] Immature Gran % 0.30 % [facility] Comment: Immature granulocytes(IG's)percentage and absolute count will include metamyelocytes, myelocytes, and promyelocytes. Blood smears from CBCs yielding IG's will be scanned manually for concordance. If this scan disagrees with the automated IG or if promyelocytes are noted, a manual differential will be performed. Geovanna Gran Abs 0.02 0.00 - 0.04 x10(3)/[facility] Blood specimen (specimen) 11/09/2017 12:50 PM EDT 11/09/2017 1:04 PM EDT Narrative Resulting Agency Comment Spec In Lab Italo Hanna MD HEMATOLOGY ORDERABL ES [facility] [place] [address] * (ABNORMAL) Hemogram (11/09/2017 12:50 PM EDT) WBC 6.0 4.0 - 9.5 x10(3)/[facility] RBC 4.80 4.58 - 5.54 x10(6)/[facility] Hemoglobin 15.3 13.7 - 16.5 gm/dL [facility] Hematocrit 45.8 40.5 - 48.5 % [facility] MCV 95.4(H) 82.9 - 93.1 [facility] MCH 31.9 27.5 - 32.1 pg [facility] MCHC 33.4 32.0 - 35.7 gm/dL [facility] Platelets 245 145 - 357 x10(3)/[facility] RDWSD 45.8(H) 36.0 - 45.0 [facility] RDWCV 13.0 11.4 - 13.8 % [facility] MPV 10.0 7.6 - 12.9 [facility] nRBC % Auto 0.0 % [facility] nRBC Abs Auto 0.000 0.000 - 0.000 x10(3)/mcL [facility] Blood specimen (specimen) 11/09/2017 12:50 PM EDT 11/09/2017 1:04 PM EDT Narrative Resulting Agency Comment Spec In Lab Italo Hanna MD HEMATOLOGY ORDERABL ES Performing Organization Address [facility]/ZIP Co de Phone Number [facility] [place] [address] * Antibody screen (11/09/2017 12:50 PM EDT) Ab Screen Interp Negative [facility] Expires at [id number] on: 12/04/2017 [facility] Comment:Corrected from 12/08 12:00 [Unknown] on 11/28/17 03:55 by Rehana Kennedy I.. Blood specimen (specimen) 11/09/2017 12:50 PM EDT 11/09/2017 1:23 PM EDT Narrative Resulting Agency Comment Spec In Lab Italo Hanna MD BLOOD BANK LAB ORDKandi CLEMENTS Performing Organization Address [facility]/ZIP Co de Phone Number [facility] [place] [address] * ABO/Rh Typing (11/09/2017 12:50 PM EDT) ABORH Type A Neg [facility] Blood specimen (specimen) 11/09/2017 12:50 PM EDT 11/09/2017 1:23 PM EDT Narrative Resulting Agency Comment Spec In Lab Italo Hanna MD BLOOD BANK LAB ORDE TYREE Performing Organization Address [facility]/ZIP Co de Phone Number [facility] [place] [address] * CRP, acute inflammation (11/09/2017 12:50 PM EDT) CRP 4.4 <=4.9 mg/L [facility] Blood specimen (specimen) 11/09/2017 12:50 PM EDT 11/09/2017 1:04 PM EDT Narrative Resulting Agency Comment Spec In Lab Italo Hanna MD CHEMISTRY ORDERABLE S Performing Organization Address [facility]/ZIP Co de Phone Number [facility] [place] [address] * Sedimentation rate (11/09/2017 12:50 PM EDT) Sed Rate 8 0 - 15 mm/hr [facility] Blood specimen (specimen) 11/09/2017 12:50 PM EDT 11/09/2017 1:04 PM EDT Narrative Resulting Agency Comment Spec In Lab Italo Hanna MD HEMATOLOGY ORDERABL ES Performing Organization Address [facility] de Phone Number [facility] [place] [address] * APTT (11/09/2017 12:50 PM EDT) PTT 29 25 - 37 sec [facility] Comment: The PTT is NOT appropriate for heparin monitoring. Use the Anti-Xa level for heparin monitoring (HEP UFH) or LMWH monitoring (HEP LMW). A PTT less than 37 seconds generally indicates adequate hemostasis. Blood specimen (specimen) 11/09/2017 12:50 PM EDT 11/09/2017 1:04 PM EDT Narrative Resulting Agency Comment Spec In Lab Italo Hanna MD HEMATOLOGY ORDERABL ES Performing Organization Address [facility] Co de Phone Number [facility] [place] [address] * Prothrombin Time (11/09/2017 12:50 PM EDT) PT 11.3 9.4 - 12.5 sec [facility] INR 1.0 [facility] Comment: An INR <2.0 indicates [...] Lab Italo Hanna MD HEMATOLOGY ORDERABL ES [facility] [place] [address] * (ABNORMAL) Basic Metabolic Panel (non-fasting) (11/09/2017 12:50 PM EDT) Glucose Lvl 115 65 - 199 mg/dL [facility] Comment:Diabetes: >=200 mg/d L plus symptoms BUN 18 10 - 20 mg/dL [facility] Creatinine 1.39 0.80 - 1.50 mg/dL [facility] Sodium 142 135 - 145 mmol/L [facility] Potassium 4.9 3.5 - 5.0 mmol/L [facility] [...] mmol/L [facility] Anion Gap 15 5 - 15 mmol/L [facility] Calcium 9.0 8.5 - 10.5 mg/dL [facility] Estimated GFR 51(L) >=60 mL/min/1. 73 m?? [facility] Comment: The eGFR was calculated using the CKD-EPI equation. As with all creatinine based estimates of kidney function, eGFR values calculated with the CKD-EPI equation are not accurate in patients with acute kidney failure, extremes of body mass or the acutely ill. [email or web address] eGFR 59(L) >=60 mL/min/1. 73 m?? [facility] Comment: The eGFR was calculated using the CKD-EPI equation. As with all creatinine based estimates of kidney function, eGFR values calculated with the CKD-EPI equation are not accurate in patients with acute kidney failure, extremes of body mass or the acutely ill. [email or web address] Blood specimen (specimen) 11/09/2017 12:50 PM EDT 11/09/2017 1:04 PM EDT Narrative Resulting Agency Comment Spec In Lab Italo Hanna MD CHEMISTRY ORDERABLE S Performing Organization Address City/State/[facility] Co de Phone Number [facility] [place] [address] documented in this encounter Visit Diagnoses Diagnosis Instability of hip joint, right Debility Debility, unspecified Pain in extremity, unspecified extremity documented in this encounter Care Teams Communications Maintainer Relationship Specialty Start Date End Date Phoenix Guzmán DO [address] [place] [address] [place] [address] PCP - General General Internal Medicine 02/20/15 documented as of this encounter
--- OUTSIDE RECORDS SUMMARY | 2023-10-23 09:06 | XMS_ITS | Encounter Summary ---
[place] [address] Care Team Providers Care Communications Equipment Supervisor Name Role Phone Phoenix Guzmán DO Primary Care Provider [phone] Encounter Details Date Type Department Care Team (Late st Contact Info) Description 06/06/2017 Telephone Dermatology at [facility] [address] [place] [phone] Dawson Broderick MD [facility] [address] [place] [address] Social History Tobacco Use Types Packs/Day Years [...] encounter Miscellaneous Notes * Telephone Encounter - Salena Eden Tiki - 06/06/2017 9:21 AM EST CALLED AND LEFT A MESSAGE FOR Gunnar Morin REQUESTING A CALL BACK TO SCHEDULE HIS 4.10 APPT THATWE HAD TO CANCEL documented in this encounter Plan of Treatment Upcoming Encounters Date Type Department Care Team (Late st Contact Info) Description 10/31/2023 9:15 AM EDT Office Visit Dermatology at [facility] [address] [place] [address] Dawson Broderick MD [facility] [address] [place] [address] 07/23/2024 9:30 AM EDT Office Visit Dermatology at [facility] [address] [place] [address] Dawson Broderick MD [facility] [place] [address] documented as of this encounter Visit Diagnoses Not on filedocumented in this encounter Care Teams Communications Equipment Supervisor Relationship Specialty Start Date End Date Phoenix Guzmán DO [address] [place] [address] [place] [phone] PCP - General General Internal Medicine 02/20/15 documented as of this encounter
--- OUTSIDE RECORDS SUMMARY | 2023-10-23 09:06 | XMS_ITS | Encounter Summary ---
Author Organization [facility] [place] [address] Care Team Providers Care Bankman Name Role Phone Phoenix Guzmán DO Primary Care Provider [phone] Encounter Details Date Type Department Care Team (Late st Contact Info) Description 07/26/2017 Refill Dermatology at [facility] [address] [place] [address] Dawson Broderick MD [facility] [address] [place] [address] Social History Tobacco Use Types Packs/Day Years [...] encounter Miscellaneous Notes * Telephone Encounter - Oneida Leyva LPN - 07/26/2017 2:55 PM EDT Patient in clinic on 07/25/17 orders in progress note indicate will use hydrocortisone 2.5% to face once daiy as needed. Prescription pended to Dr. Broderick, patient updated * Telephone Encounter - Yadi Puckett - 07/26/2017 2:25 PM EDT Received a call from Gunnar Morin wanting his prescription of Hydrocortisone 2.5% be sent to [facility] in [facility]. Best number to reach him back is [phone]. documented in this encounter Plan of Treatment Upcoming Encounters Date Type Department Care Team (Late st Contact Info) Description 10/31/2023 9:15 AM EDT Office Visit Dermatology at [facility] [address] [place] [address] Dawson Broderick MD [facility] [place] [address] 07/23/2024 9:30 AM EDT Office Visit Dermatology at [facility] [address] [place] [address] Dawson Broderick MD [facility] [place] [address] documented as of this encounter Visit Diagnoses Not on filedocumented in this encounter Care Teams Bankman Relationship Specialty Start Date End Date Phoenix Guzmán DO [address] [place] [address] [place] [phone] PCP - General General Internal Medicine 02/20/15 documented as of this encounter
--- OUTSIDE RECORDS SUMMARY | 2023-10-23 09:06 | XMS_ITS | Encounter Summary ---
Author Organization [facility] [place] [address] Care Team Providers Care Customer Experience Consultant Name Role Phone DevantePhoenix orozco Susan MCDOWELL Primary Care Provider [phone] Reason for Visit * Auth/Cert Specialty Diagnoses [...] Expiration Date Visits Re quested Visits Authorized [id number] 1 1 Encounter Details Date Type Department Care Team (Late st Contact Info) Description 01/19/2017 9:05 AM EDT - 01/19/2017 11:37 AM EDT Hospital Encounter [place] [phone] Carina Patton MD [facility] [address] Discharge Disposition: Home Social History Tobacco Use [...] AM EDT Office Visit Dermatology at [facility] [address] [place] [phone] Dawson Broderick MD [facility] DR MYKE [place] [address] 07/23/2024 9:30 AM EDT Office Visit Dermatology at [facility] [address] [place] [address] Dawson Broderick MD [facility] DR [address] [place] [address] documented as of this encounter Procedures Procedure Name Priority Date/Time Associated Diagnosis Comments NM LYMPHOSCINTIGRAPHY WITH IMAGING MELANOMA OR SKIN CANCER Routine 01/19/2017 11:40 AM EDT Malignant melanoma, unspecified site documented in this encounter Visit Diagnoses Not on filedocumented in this encounter Administered Medications Inactive Administered Medications - up to 3 most recent administrations Medication Order MAR Action Action Date Dose Rate Site technetium (Tc-99m) sulfur colloid injection 1.6 mCi 1.6 mCi, Intradermal, ONCE PRN, 1 dose, Starting on Yara 01/19/17 at 0944, Until Yara 01/19/17 at 0940, Per Protocol, Routine Given 01/19/2017 9:40 AM EDT 1.6 mCi documented in this encounter Care Teams Customer Experience Consultant Relationship Specialty Start Date End Date Phoenix Guzmán DO [address] [place] [address] [place] [address] PCP - General General Internal Medicine 02/20/15 documented as of this encounter
--- OUTSIDE RECORDS SUMMARY | 2023-10-23 09:06 | XMS_ITS | Encounter Summary ---
[place] [address] Care Team Providers Care As400 Administrator Name Role Phone Phoenix Guzmán Primary Care Provider [phone] Reason for Visit * Reason Onset Date Comments Follow-up 08/25/2017 Encounter Details Date Type Department Care Team (Late st Contact Info) Description 08/25/2017 Telephone [place] [address] Walter Rae MD [facility] [place] [address] Follow-up Social History Tobacco Use Types Packs/Day Years [...] encounter Miscellaneous Notes * Telephone Encounter - Sun Pearson - 08/25/2017 11:06 AM EDT error documented in this encounter Plan of Treatment Upcoming Encounters Date Type Department Care Team (Late st Contact Info) Description 10/31/2023 9:15 AM EDT Office Visit Dermatology at [facility] [address] [place] [address] Dawson Broderick MD [facility] [place] [address] 07/23/2024 9:30 AM EDT Office Visit Dermatology at [facility] [address] [place] [address] Dawson Broderick MD [facility] [place] [address] documented as of this encounter Visit Diagnoses Not on filedocumented in this encounter Care Teams As400 Administrator Relationship Specialty Start Date End Date Phoenix Guzmán DO [address] [place] [address] [place] [phone] PCP - General General Internal Medicine 02/20/15 documented as of this encounter
--- OUTSIDE RECORDS SUMMARY | 2023-10-23 09:06 | XMS_ITS | Encounter Summary ---
[place] [address] Care Team Providers Care Final Touch Up Painter Name Role Phone RamirezPhoenix Susan MCDOWELL Primary Care Provider [phone] Reason for Visit * Consultation (Routine) - Closed Specialty Diagnoses / Procedures Referred By Omid shepherd Referred To Contact Hematology and Oncology Diagnoses Malignant melanoma of skin of [facility] Pooja, Carina Lira MD [facility] [place] [address] Cielo Yin MD [facility] HEMATOLOGY/[place] [address] Referral ID Status Reason Start Date Expiration Date V isits Requested Visits Authorized [id number] Closed Consult, Test & Treat 02/03/2017 02/03/2018 1 1 Encounter Details Date Type Department Care Team (Late st Contact Info) Description 03/14/2017 2:00 PM EST Office Visit Hematology [place] [address] Cielo Yin MD [facility] HEMATOLOGY/[place] [address] Malignant melanoma, unspecified site Social History Tobacco [...] Sign Reading Time Taken Comments Blood Pressure 119/69 03/14/2017 2:15 PM EST Pulse 84 03/14/2017 2:15 PM EST Temperature 36.8 ??C (98.2 ??F) 03/14/2017 2:15 PM ES T Respiratory Rate 18 03/14/2017 2:15 PM EST Oxygen Saturation 97% 03/14/2017 2:15 PM EST Inhaled Oxygen Concentration - - Weight 131.2 kg (289 lb 3.2 oz) 03/14/2017 2:15 PM EST Height 182.8 cm (5' 11.97) 03/14/2017 2:[address] Body Mass Index 39.26 03/14/2017 2:15 PM EST documented in this encounter Progress Notes * Cielo Yin MD - 03/14/2017 2:00 PM EST INITIAL VISIT [facility] NOTE REFERING PHYSICIAN: Dr. Guido Broderick DIAGNOSIS: T2b (1.76 mm with ulceration) N0 (1 negative left inguinal node and 4 negative right inguinal nodes). 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 Morin is 71 years old gentleman with the above history of melanoma referred to melanoma clinic on 03/14/2017. Upon today's presentation he denies any significant limitation in his daily activity except slight sensitive/discomfort because of imiquimod treatment. Otherwise denied any weight loss. Recovering well from surgery. REVIEW OF SYSTEMS: Constitutional: No weight loss, no fever, no fatigue, No dizziness. No headache. Eyes: Negative, no visual change ENT: No hearing change Cardiovascular: Negative Respiratory: Negative Gastrointestinal: Negative, Genitourinary: Negative Musculoskeletal: No new joint pain Skin: Negative Neurological: Negative, no focal weakness Psychiatric: stable mood PAST MEDICAL HISTORY: No past medical history on file. Past Surgical History: Procedure Laterality Date ??? PRO BIOPSY/EXCISION, LYMPH NODE(S) Bilateral 01/19/2017 BIOPSY OR EXCISION OF LYMPH NODE(S), OPEN, GROIN-TAMMY (WRVU 3.79) performed by Carina Patton MD at [facility] ??? PRO INTRAOP SENTINEL LYMPH ID W/DYE INJECTION Midline 01/19/2017 INTRAOPERATIVE ID (MAPPING) SENTINEL LYMPH NODE,INCLUDES INJECTION (WRVU 2.5) performed by Carina Patton MD at [facility] ??? PRO REVISE TOTAL HIP REPLACEMENT Right 06/29/2016 @TOTAL HIP REVISION ARTHROPLASTY, COMPLETE (WRVU 30.28) performed by Walter Rae MD at [facility] OR ??? PRO TOTAL KNEE ARTHROPLASTY Left 09/07/2015 @TOTAL KNEE ARTHROPLASTY performed by Walter Rae MD at [facility] MAIN OR ??? PRO TOTAL KNEE ARTHROPLASTY Right 09/21/2016 @TOTAL KNEE ARTHROPLASTY (WRVU 20.72) performed by Walter Rae MD at [facility] MAIN OR MEDS: acetaminophen, aspirin, carvedilol, clindamycin, imiquimod, nitroGLYcerin, tazarotene, and tretinoin ALLERGY: Allergies Allergen Reactions ??? Amoxicillin Trihydrate Hives FAMILY HX: Mother had some type of cancer with spinal involvement at age 76 No personal or family history of melanoma Family History Problem Relation Age of Onset ??? 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 Marital status: Spouse name: N/A ??? Number of children: N/A ??? Years of education: N/A Occupational History ??? Not on file. Social History Main Topics ??? Smoking status: Former Smoker Quit date: 01/11/2001 ??? Smokeless tobacco: Never Used ??? Alcohol use Yes Comment: occasional ??? Drug use: No ??? Sexual activity: Not on file Other Topics Concern ??? Not on file Social History Narrative PHYSICAL EXAM: PS=0 General: not in acute distress. in good mood and spirits BP 119/69 (Patient Position: Sitting) Pulse 84 Temp 36.8 ??C (98.2 ??F) (Temporal) Resp 18 Ht 182.8 cm (5' 11.97) Wt (!) 131.2 kg (289 lb 3.2 oz) SpO2 97% BMI 39.26 kg/m2 Eyes: Not icteric, not injected Oral: clear. Neck: Supple. No lymphadenopathy. Lungs: Bilaterally clear to auscultation, No wheezing, No crackles Heart: Regular rate and rhythm. + Systolic murmur Abdomen: Soft, no tenderness, no mass, normal active bowel sounds. Extremities: No edema. Skin: No rash, well-healed surgical scar Slight skin irritation most likely from imiquimod treatment Neuro: No focal weakness LABS: Unremarkable CBCD and CMP LDH 184 IMAGING STUDIES: None particularly ASSESSMENT AND PLAN: Stage IIa T2b (1.76 mm with ulceration ) N0 (0/1+ 0/4 tested on 01/31/2017) melanoma of penile right lateral shaft The significance and natural course of early stage melanoma were reviewed. The role and concept of active surveillance were discussed with the patient in detail. At this point no adjuvant treatment is indicated as of 2016. I will request mutation analysis for future reference. Importance of dermatology follow-up was emphasized. The patient will continue to follow-up with Dr. Broderick. Pt was instructed to call our clinic with any new symptom or any questions. Thank you very much for referring this nice patient to our medical oncology clinic. Please find my recommendation in above note. Cielo Yin MD documented in this encounter Plan of Treatment Upcoming Encounters Date Type Department Care Team (Late st Contact Info) Description 10/31/2023 9:15 AM EDT Office Visit Dermatology at [facility] [address] [place] [address] Dawson Broderick MD [facility] [address] [place] [address] 07/23/2024 9:30 AM EDT Office Visit Dermatology at [facility] [address] [place] [address] Dawson Broderick MD [facility] DR [address] [place] [address] Scheduled Referrals Name Type Priority Associated Diagnoses Order Schedule Referral to Hematology and Oncology Outpatient Referral Routine Malignant melanoma of skin of penis Ordered: 02/03/2017 documented as of this encounter Visit Diagnoses Diagnosis Malignant melanoma, unspecified site documented in this encounter Care Teams Final Touch Up Painter Relationship Specialty Start Date End Date Phoenix Guzmán DO [address] [place] [address] [place] [address] PCP - General General Internal Medicine 02/20/15 documented as of this encounter
--- OUTSIDE RECORDS SUMMARY | 2023-10-23 09:06 | XMS_ITS | Encounter Summary ---
[place] [address] Care Team Providers Care Head Teacher Name Role Phone DevantePhoenix orozco Primary Care Provider [phone] Reason for Referral * Diagnostic Test (Routine) - Closed Specialty Diagnoses / Procedures Referred By Omid shepherd Referred To Contact Radiology Diagnoses Chronic right hip pain Procedures CT Hip wo Contrast Right (Generic) [facility] [address] [place] [phone] [facility] [place] [address] Referral ID Status Reason Start Date Expiration Date V isits Requested Visits Authorized [id number] Closed Specialty Service Requested 10/09/2017 12/07/2017 1 1 Reason for Visit * Diagnostic Test (Routine) - Closed Specialty Diagnoses / Procedures Referred By Omid shepherd Referred To Contact Radiology Diagnoses Chronic right hip pain Procedures CT Hip wo Contrast Right (Generic) [facility] [address] [place] [phone] [facility] [place] [address] Referral ID Status Reason Start Date Expiration Date V isits Requested Visits Authorized [id number] Closed Specialty Service Requested 10/09/2017 12/07/2017 1 1 Encounter Details Date Type Department Care Team (Latest Contact Info) Description 10/12/2017 12:24 PM EDT - 10/12/2017 1:21 PM EDT Hospital [place] [address] Walter Rae MD [facility] [place] [address] Chronic right hip pain Discharge Disposition: Home Social History Tobacco Use [...] 9:15 AM EDT Office Visit Dermatology at [facility] [address] [place] [address] Dawson Broderick MD [facility] [place] [address] 07/23/2024 9:30 AM EDT Office Visit Dermatology [facility] [address] [place] [address] Dawson Broderick MD [facility] [place] [address] documented as of this encounter Procedures Procedure Name Priority Date/Time Associated Diagnosis Comments CT HIP WO CONTRAST RIGHT Routine 10/12/2017 1:18 PM EDT Chronic right hip pain documented in this encounter Results * CT Hip wo [...] pre-existing osteolytic foci withoutprogression. Walter Rae MD IMG CT ORDERABLES documented in this encounter Visit Diagnoses Diagnosis Chronic right hip pain Pain in joint, pelvic region and thigh documented in this encounter Care Teams Head Teacher Relationship Specialty Start Date End Date Phoenix Guzmán DO [address] [place] [address] [place] [address] PCP - General General Internal Medicine 02/20/15 documented as of this encounter
--- OUTSIDE RECORDS SUMMARY | 2023-10-23 09:06 | XMS_ITS | Encounter Summary ---
[place] [address] Care Team Providers Care Orchestra Teacher Name Role Phone Phoenix Guzmán DO Primary Care Provider [phone] Encounter Details Date Type Department Care Team (Late st Contact Info) Description 08/25/2017 Orders [place] [address] Walter Rae MD [facility] [place] [address] Social History Tobacco Use Types Packs/Day Years [...] at [facility] [address] [place] [address] Dawson Broderick MD [facility] [address] [place] [address] 07/23/2024 9:30 AM EDT Office Visit Dermatology at [facility] [address] [place] [address] Dawson Broderick MD [facility] [address] [place] [address] documented as of this encounter Visit Diagnoses Not on filedocumented in this encounter Care Teams Orchestra Teacher Relationship Specialty Start Date End Date Phoenix Guzmán DO [address] [place] [address] [place] [address] PCP - General General Internal Medicine 02/20/15 documented as of this encounter
--- OUTSIDE RECORDS SUMMARY | 2023-10-23 09:06 | XMS_ITS | Encounter Summary ---
Author Organization [facility] [place] [address] Care Team Providers Care Brazer Controlled Atmospheric Furnace Name Role Phone Phoenix Guzmán DO Primary Care Provider [phone] Encounter Details Date Type Department Care Team (Latest Contact Info) Description 10/12/2017 1:22 PM EDT - 10/12/2017 11:59 PM EDT Hospital Encounter XRay at [address] [place] [address] Walter Rae MD [facility] [place] [address] S/P total knee arthroplasty, bilateral Discharge Disposition: Home Social History Tobacco [...] 04/13/2015 imiquimod (ALDARA) 5 % Cream in PacketIndications:Malyuly nant melanoma, unspecified site (after 2 weeks [...] [facility] [address] [place] [address] Dawson Broderick MD [facility] [place] [address] 07/23/2024 9:30 AM EDT Office Visit Dermatology at [facility] [address] [place] [address] Dawson Broderick MD [facility] [place] [address] documented as of this encounter Procedures Procedure Name Priority Date/Time Associated Diagnosis Comments XR KNEE AP AND LAT BILAT Routine 10/12/2017 1:36 PM EDT S/P total knee arthroplasty, bilateral documented in this encounter Results * XR Knee 1-2 Views Bilat (Generic) (10/12/2017 1:36 PM EDT) Anatomical Region Laterality Modality Knee Bilateral Digital Radiogra phy Impressions 10/12/2017 3:52 PM EDT No significant change from 2017. Stable periprosthetic lucencies at the left TKA as described above could represent stable loosening in the appropriate clinical setting. Left knee joint effusion. Narrative 10/12/2017 3:52 PM EDT EXAMINATION: XR KNEE 1-2 VIEWS BILAT (GENERIC) CLINICAL HISTORY: Status post bilateral total knee arthroplasties TECHNIQUE: Frontal and lateral radiographs of the bilateral knees were obtained. COMPARISON: Multiple prior knee radiographs from 10/08/2015 through 10/20/2016 FINDINGS: There is periprosthetic lucency deep to the left medial tibial tray, new since 2016 but not definitely changed from 08/23/2016, could represent stable loosening in the appropriate clinical setting. A separate periprosthetic lucency at the anterior bone-metal interface of the left femoral component is new from 2016 but also not significantly changed from 08/23/2016 could also represent stable loosening in the appropriate clinical setting. No new or enlarging periprosthetic lucency. No periprosthetic lucency at the right knee. No periprosthetic fracture. There is a left knee joint effusion. Procedure Note Isa Pimentel MD - 10/12/2017 EXAMINATION: XR KNEE 1-2 VIEWS BILAT (GENERIC) CLINICAL HISTORY: Status post bilateral total knee arthroplasties TECHNIQUE: Frontal and lateral radiographs of the bilateral knees were obtained. COMPARISON: Multiple prior knee radiographs from 10/08/2015 through 10/20/2016 FINDINGS: There is periprosthetic lucency deep to the left medial tibial tray, newsince 2016 but not definitely changed from 08/23/2016, could represent stableloosening in the appropriate clinical setting. A separate periprosthetic lucency atthe anterior bone-metal interface of the left femoral component is new [id number] but also not significantly changed from 08/23/2016 could also representstable loosening in the appropriate clinical setting. No new or enlarging periprosthetic lucency. No periprosthetic lucency at the right knee. No periprosthetic fracture. There is a left knee joint effusion. IMPRESSION No significant change from 2017. Stable periprosthetic lucencies at theleft TKA as described above could represent stable loosening in the appropriateclinical setting. Left knee joint effusion. Walter Rae MD IMG DX ORDERABLES documented in this encounter Visit Diagnoses Diagnosis S/P total knee arthroplasty, bilateral documented in this encounter Care Teams Brazer Controlled Atmospheric Furnace Relationship Specialty Start Date End Date Phoenix Guzmán DO [address] [place] [address] [place] [address] PCP - General General Internal Medicine 02/20/15 documented as of this encounter
--- OUTSIDE RECORDS SUMMARY | 2023-10-23 09:06 | XMS_ITS | Encounter Summary ---
[place] [address] Care Team Providers Care Honing Machine Operator Semiautomatic Name Role Phone Phoenix Guzmán DO Primary Care Provider [phone] Encounter Details Date Type Department Care Team (Late st Contact Info) Description 08/25/2017 Orders [place] [address] Walter Rae MD [facility] DR [place] [address] Social History Tobacco Use Types Packs/Day Years [...] as of this encounter Progress Notes * Carmen Pacheco RN - 08/25/2017 9:46 AM EDT error documented in this encounter Plan of Treatment Upcoming Encounters Date Type Department Care Team (Late st Contact Info) Description 10/31/2023 9:15 AM EDT Office Visit Dermatology at [facility] [address] [place] [address] Dawson Broderick MD [facility] [address] [place] [address] 07/23/2024 9:30 AM EDT Office Visit Dermatology at [facility] [address] [place] [address] Dawson Broderick MD [facility] [place] [address] documented as of this encounter Visit Diagnoses Not on filedocumented in this encounter Care Teams Honing Machine Operator Semiautomatic Relationship Specialty Start Date End Date Phoenix Guzmán DO [address] [place] [address] [place] [address] PCP - General General Internal Medicine 02/20/15 documented as of this encounter
--- OUTSIDE RECORDS SUMMARY | 2023-10-23 09:06 | XMS_ITS | Encounter Summary ---
[place] [id number] Care Team Providers Care Metal Treater Name Role Phone Phoenix Guzmán Primary Care Provider [phone] Reason for Referral * Diagnostic Test (Routine) - Closed Specialty Diagnoses / Procedures Referred By Omid shepherd Referred To Contact Radiology Diagnoses Malignant melanoma, unspecified site Procedures NM Lymphoscintigraphy w Imaging Melanoma or Skin Cancer Carina Patton MD [facility] [place] [address] [place] [address] Referral ID Status Reason Start Date Expiration Date V isits Requested Visits Authorized [id number] Closed Specialty Service Requested 01/06/2017 01/06/2018 2 2 Reason for Visit * Auth/Cert Specialty Diagnoses / Procedures Referred By Omid hsepherd Referred To Contact Diagnoses PENILE MELANOMA Procedures [...] Expiration Date Visits Re quested Visits Authorized [id number] 1 1 Encounter Details Date Type Department Care Team (Late st Contact Info) Description 01/19/2017 9:05 AM EDT - 01/19/2017 11:37 AM EDT Hospital En[place] [address] Carina Patton MD [facility] [place] [address] Malignant melanoma, unspecified site Discharge Disposition: Home [...] AM EDT Office Visit Dermatology at [facility] [address] [place] [address] Dawson Broderick MD [facility] [place] [address] 07/23/2024 9:30 AM EDT Office Visit Dermatology at [facility] [address] [place] [address] Dawson Broderick MD [facility] [place] [address] documented as of this encounter Procedures Procedure Name Priority Date/Time Associated Diagnosis Comments NM LYMPHOSCINTIGRAPHY WITH IMAGING MELANOMA OR SKIN CANCER Routine 01/19/2017 11:40 AM EDT Malignant melanoma, unspecified site documented in this encounter Results * NM Lymphoscintigraphy w Imaging Melanoma or Skin Cancer (01/19/2017 11:40 AM EDT) Anatomical Region Laterality Modality Nuclear Medicine Impressions 01/19/2017 12:15 PM EDT [place] node drainage to the inguinal regions bilaterally. Preliminary report signed by: Dean Nguyen at 01/19/2017 11:51 AM I have personally reviewed the image(s) and the residents interpretation and agree with the findings, Geraldo Lau at 01/19/2017 12:15 PM Narrative 01/19/2017 12:15 PM EDT EXAMINATION: NM LYMPHOSCINTIGRAPHY W IMAGING MELANOMA OR SKIN CANCER CLINICAL HISTORY: PLEASE INJECT THE PENIS MELANOMA FOR LYMPHATIC MAPPIN, SIDE NON-SPECIFIC, AND SCAN TECHNIQUE: Technetium 99m filtered sulfur colloid was administered intradermally in divided doses totaling 1.6 mCi at the site of the known melanoma in the mid penile shaft. Approximately 30 to 60 minutes post injection anterior and posterior views of the lower abdomen, pelvis and superior aspect of the lower extremities were obtained COMPARISON: None FINDINGS: Injection site in the penile shaft. Tracer deposition in the bilateral inguinal regions. Faint tracer deposition is seen within the abdomen likely in secondary iliac vivian basins. There are several faint focal and curvilinear areas of increased activity projecting in the region of the base of the penis which have the appearance of lymphatic channels. Procedure Note Geraldo Lau MD - 01/19/2017 EXAMINATION: NM LYMPHOSCINTIGRAPHY W IMAGING MELANOMA OR SKIN CANCER CLINICAL HISTORY: PLEASE INJECT THE PENIS MELANOMA FOR LYMPHATIC MAPPIN,SIDE NON-SPECIFIC, AND SCAN TECHNIQUE: Technetium 99m filtered sulfur colloid was administered intradermally individed doses totaling 1.6 mCi at the site of the known melanoma in the midpenile shaft. Approximately 30 to 60 minutes post injection anterior andposterior views of the lower abdomen, pelvis and superior aspect of the lowerextremities were obtained COMPARISON: None FINDINGS: Injection site in the penile shaft. Tracer deposition in the bilateral inguinal regions. Faint tracer deposition is seen within the abdomen likely in secondaryiliac vivian basins. There are several faint focal and curvilinear areas of increasedactivity projecting in the region of the base of the penis which have theappearance of lymphatic channels. IMPRESSION [place] node drainage to the inguinal regions bilaterally. Preliminary report signed by: Dean Nguyen at 01/19/2017 11:51 AM I have personally reviewed the image(s) and the residents interpretationand agree with the findings, Geraldo Lau at 01/19/2017 12:15 PM Carina Lira MD IMG NM ORDERABLE S documented in this encounter Visit Diagnoses Diagnosis Malignant melanoma, unspecified site documented in this encounter Care Teams Metal Treater Relationship Specialty Start Date End Date Phoenix Guzmán DO [address] [place] [address] [place] [address] PCP - General General Internal Medicine 02/20/15 documented as of this encounter
--- OUTSIDE RECORDS SUMMARY | 2023-10-23 09:06 | XMS_ITS | Encounter Summary ---
Author Organization [facility] [place] [address] Care Team Providers Care Operating Theatre Technician Name Role Phone Phoenix Guzmán Primary Care Provider [phone] Reason for Visit * Reason Comments Right Hip Pain Encounter Details Date Type Department Care Team (Late st Contact Info) Description 07/25/2017 12:30 PM EDT Office Visit Orthopaedics at [facility] [place] [address] Thania Moreno, [place] [facility] [place] [address] Status post total replacement of right hip [...] Sign Reading Time Taken Comments Blood Pressure 104/68 07/25/2017 12:15 PM EDT Pulse 86 07/25/2017 12:15 PM EDT Temperature - - Respiratory Rate - - Oxygen Saturation - - Inhaled Oxygen Concentration - - Weight 131.5 kg (290 lb) 07/25/2017 12:15 PM EDT Height 182.9 cm (6') 07/25/2017 12:15 PM EDT Body Mass Index 39.33 07/25/2017 12:15 PM EDT documented in this encounter Progress Notes * Thania Moreno PA - 07/25/2017 12:30 PM EDT Arthroplasty/Orthopaedic History: 1. Right ELZBIETA - 11/06/1996 - Dr. Quintanilla 2. Left TKA - 09/07/15 - Dr. Rae 3. Right ELZBIETA revision w/ head-liner exchange - 06/29/16 - Dr. Rae 4. Right TKA 09/21/16 - Dr. Rae HPI: Gunnar Morin is a very pleasant 72 y.o. year-old male who returns for follow up after multiple dislocations s/p right ELZBIETA revision. He continues to have pain in the right hip. He has pain with all activity, especially walking and using stairs. He has pain at night as well. His pain is deep within the groin, as well as along the lateral aspect of the hip. He has not had any dislocations since December. His hip pain is very limiting for him. He did PT to help improve his strength, but his symptoms did not improve from this. His melanoma has been removed with no concerns for metastasis,and his health is otherwise stable. ROS: Denies: fever, chills, night sweats, nausea, or vomiting There were no vitals taken for this visit. Physical Exam: Well-appearing male in no acute distress. Alert and Oriented x 3 and answers all questions appropriately. The incision is well healed, with no signs of infection. I have made the following determinations: Post Op Right Hip Exam: Leg length: Longer leg: equal Limb Length discrepancy: 0cm Motion: Flexion contracture: 0 Total degrees of Flexion:90 Total degrees of Abduction:20 Total degrees of Ext Rotation: 15 Total degrees of Internal Rotation: 5 Gait Abnormality: Normal Pulses Palpable: Right PT: Yes Right DP:Yes Motor/Sensory: Right Distal Motor: Normal Distal Sensory: Normal Hip Abductors: 5 Trendelenburg test: negative X-RAYS: Multiple radiographic views were obtained at my request and reviewed with the patient. X-rays show a well-placed prosthesis with no evidence of fracture, subsidence, loosening, or periprosthetic complication. Questionnaire Responses: [facility] Postop Visit 07/25/2017 PROMIS-10 General Health Very Good PROMIS-10 Quality of Life Very Good PROMIS-10 Physical Health Very Good PROMIS-10 Mental Health Very Good PROMIS-10 Social Activity Very Good PROMIS-10 Everyday Activities Moderately PROMIS-10 Pain 5 PROMIS-10 Fatigue Moderate PROMIS-10 Social Roles Good PROMIS-10 Anxious or Depressed Never PROMIS PHYSICAL HEALTH SCORE 42.3 PROMIS MENTAL HEALTH SCORE 56 HOOS JR Scores 70.43 KOOS JR Scores - Problems with surgical incision/wound after surgery No Gone to ER since knee surgery Yes Where was ER located? [facility] Date of ER visit - Reason for ER visit 8 2o17 Admitted to hospital since recent ortho surgery Yes [facility] Date of admission - Discharge date - Reason you went to hospital 2016 hip dislocation Additional surgery on same body part No Hospital - Surgeon - Date of surgery - Reason for surgery - TKA Grade - Pain in other KNEE - ELZBIETA Grade 7 Pain in other HIP None Back pain at this moment None Satisfaction with Treatment Somewhat satisfied Choose Same Treatment Again Probably no [facility] Response 07/25/2017 HOOS JR Scores 70.43 KOOS JR Scores - Spine [facility] Response 07/25/2017 HOOS JR Scores 70.43 KOOS JR Scores - ASSESSMENT/PLAN: Mr. Morin is a 72 y.o. year old male status post right total hip revisions with two subsequent dislocations. He has tried conservative management of the hip after these dislocations, but he has dealt with persistent pain. He wanted to avoid surgery, but has come to the realizationthat revision may be his best option. He expresses that he wants a smaller head size, that more closely matches his primary hip size. I will discuss revision with Dr. Rae and we will call him with next steps. documented in this encounter Plan of Treatment Upcoming Encounters Date Type Department Care Team (Late st Contact Info) Description 10/31/2023 9:15 AM EDT Office Visit Dermatology at [facility] [address] [place] [address] Dawson Broderick MD [facility] [address] [place] [address] 07/23/2024 9:30 AM EDT Office Visit Dermatology at [facility] [address] [place] [address] Dawson Broderick MD [facility] [place] [address] documented as of this encounter Visit Diagnoses Diagnosis Status post total replacement of right hip documented in this encounter Care Teams Operating Theatre Technician Relationship Specialty Start Date End Date Phoenix Guzmán DO [address] [place] [address] [place] [address] PCP - General General Internal Medicine 02/20/15 documented as of this encounter
--- OUTSIDE RECORDS SUMMARY | 2023-10-23 09:06 | XMS_ITS | Encounter Summary ---
[place] [address] Care Team Providers Care Industrial Controls Technician Name Role Phone Phoenix Guzmán Primary Care Provider [phone] Encounter Details Date Type Department Care Team (Latest Contact Info) Description 11/09/2017 12:40 PM EDT Clinical [place] [id number] Instability of hip joint, right; Debility; Pain [...] Sign Reading Time Taken Comments Blood Pressure - - Pulse - - Temperature - - Respiratory Rate - - Oxygen Saturation 98% 11/09/2017 12:21 PM EDT Inhaled Oxygen Concentration - - Weight 133.8 kg (295 lb) 11/09/2017 12:21 PM EDT Height 182.9 cm (6') 11/09/2017 12:21 PM EDT Body Mass Index 40.01 11/09/2017 12:21 PM EDT documented in this encounter Progress Notes * Yarelis Parry RN - 11/09/2017 12:40 PM EDT PAT questionnaire reviewed with patient and , Sussy, while in Pre Admission testing. Pre-operative instruction booklet reviewed. Patient verbalizes a good understanding of all information reviewed. PLAN: Testing: Blood work, type and screen and EKG performed while in PAT. Special medication instructions: none Procedure date: 12/05/2017 documented in this encounter Plan of Treatment Upcoming Encounters Date Type Department Care Team (Late st Contact Info) Description 10/31/2023 9:15 AM EDT Office Visit Dermatology at [facility] [address] [place] [address] Dawson Broderick MD [facility] [place] [address] 07/23/2024 9:30 AM EDT Office Visit Dermatology [facility] [address] [place] [address] Dawson Broderick MD [facility] [place] [address] documented as of this encounter Procedures Procedure Name Priority Date/Time Associated Diagnosis Comments EKG 12-LEAD Routine 11/09/2017 1:01 PM EDT Instability of hip joint, right Debility Pain in extremity, unspecified extremity documented in this encounter Results * EKG 12 Lead (11/09/2017 1:01 PM EDT) Ventricular rate 84 BPM MUSE SYSTEM Atrial Rate 84 BPM MUSE SYSTEM P-R Interval 176 ms MUSE SYSTEM QRS Duration 96 ms MUSE SYSTEM Q-T Interval 362 ms MUSE SYSTEM QTC Calculated (Bezet) 427 ms MUSE SYSTEM Calculated P Lenox 51 degrees MUSE SYSTEM Calculated R [place] 38 degrees MUSE SYSTEM Calculated T Lenox -17 degrees MUSE SYSTEM INTERPRETATION Normal sinus rhythm Normal ECG When compared with ECG of 23-AUG-2016 09:29, No significant change was found Confirmed by MD [place], Brian Kearns ([id number]) on 11/09/2017 8:31:52 PM MUSE SYSTEM 11/09/2017 1:01 PM EDT 11/09/2017 8:31 PM EDT Italo Hanna MD ECG ORDERABLES MUSE SYSTEM documented in this encounter Visit Diagnoses Diagnosis Instability of hip joint, right Debility Debility, unspecified Pain in extremity, unspecified extremity documented in this encounter Care Teams Industrial Controls Technician Relationship Specialty Start Date End Date Phoenix Guzmán DO [address] [place] [address] [place] [address] PCP - General General Internal Medicine 02/20/15 documented as of this encounter
--- OUTSIDE RECORDS SUMMARY | 2023-10-23 09:06 | XMS_ITS | Encounter Summary ---
[place] [address] Care Team Providers Care Barrel Washer Machine Name Role Phone Phoenix Guzmán DO Primary Care Provider Encounter Details Date Type Department Care Team (Late st Contact Info) Description 07/28/2017 [place]phone [place] [address] Walter Rae MD [facility] DR [place] [address] Social History Tobacco Use Types Packs/Day Years [...] Telephone Encounter - Walter Rae MD - 07/28/2017 2:26 PM EDT Had a long discussion with patient regarding his right hip and persistent lateral hip pain. 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 He did well until about 5-1/2 months post surgery when he had a dislocation of his right hip. Prior to his dislocation he had no discomfort. He has had one other dislocation since. He hasn't had a dislocation to months. At this point he has lateral-based pain. It has improved over the last 2 months of physical therapy. His pain is based laterally but does occasionally shoot into the buttock and groin. He has no signs of infection. I discussed with him at this point his x- rays show no interval change. I did discuss that this could be related to likely abductor insufficiency or soft tissue injury from his dislocation. I discussed the importance of abductor strengthening. I do not see an immediate need for revision surgery at this point. If he continues to struggle I think a CT scan would be reasonable to assess for any loose components. I think in the meantime to work with therapy to strengthen his abductor tendons and contact us if this does not improve. documented in this encounter Plan of Treatment Upcoming Encounters Date Type Department Care Team (Late st Contact Info) Description 10/31/2023 9:15 AM EDT Office Visit Dermatology at [facility] [address] [place] [address] Dawson Broderick MD [facility] [address] [place] [address] 07/23/2024 9:30 AM EDT Office Visit Dermatology [facility] [address] [place] [address] Dawson Broderick MD [facility] [place] [address] documented as of this encounter Visit Diagnoses Not on filedocumented in this encounter Care Teams Barrel Washer Machine Relationship Specialty Start Date End Date Phoenix Guzmán DO [address] [place] [address] [place] [phone] PCP - General General Internal Medicine 02/20/15 documented as of this encounter
--- OUTSIDE RECORDS SUMMARY | 2023-10-23 09:06 | XMS_ITS | Encounter Summary ---
[place] [address] Care Team Providers Care Rehabilitation Attendant Name Role Phone Phoenix Guzmná DO Primary Care Provider [phone] Encounter Details Date Type Department Care Team (Late st Contact Info) Description 02/06/2017 Telephone Dermatology at [facility] [address] [place] [phone] Nathalia Tobin MD [facility] [address] [place] [address] Social History Tobacco Use Types Packs/Day Years [...] encounter Miscellaneous Notes * Telephone Encounter - Nathalia Tobin MD - 02/07/2017 1:47 PM EST Called. Patient not home. Will call again tonbrock. Nathalia Tobin MD Resident in Dermatology [facility] Pager [phone] * Telephone Encounter - Indy Eid - 02/06/2017 4:10 PM EST Patient would like to speak with you about his treatment. The best phone number to reach patient [phone]. documented in this encounter Plan of Treatment Upcoming Encounters Date Type Department Care Team (Late st Contact Info) Description 10/31/2023 9:15 AM EDT Office Visit Dermatology at [facility] [address] [place] [address] Dawson Broderick MD [facility] [address] [place] [address] 07/23/2024 9:30 AM EDT Office Visit Dermatology at [facility] [address] [place] [address] Dawson Broderick MD [facility] [address] [place] [address] documented as of this encounter Visit Diagnoses Not on filedocumented in this encounter Care Teams Rehabilitation Attendant Relationship Specialty Start Date End Date Phoenix Guzmán DO [address] [place] [address] [place] [address] PCP - General General Internal Medicine 02/20/15 documented as of this encounter
--- OUTSIDE RECORDS SUMMARY | 2023-10-23 09:06 | XMS_ITS | Encounter Summary ---
[place] [address] Care Team Providers Care Yoke Setter Name Role Phone Phoenix Guzmán DO Primary Care Provider [phone] Encounter Details Date Type Department Care Team (Latest Contact Info) Description 01/31/2017 Multidisciplinary Ca re Committee [place]ology [place] [address] Cielo Yin MD [facility] HEMATOLOGY/[place] [address] Social History Tobacco Use Types Packs/Day Years [...] as of this encounter Progress Notes * Cielo Yin MD - 01/31/2017 6:56 PM EDT Melanoma - Tumor Board Note Date Presented: 01/31/2017 Presenting Physician: Pooja Diagnosis/Tumor Site: 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, margin positive with MIS [place] lymph node was negative except where week Melan-A positive small cell-> N0 Left inguinal 1/0 the right inguinal 0/4 Resected on 01/19/2017 Is this Metastatic Disease: Synopsis of History/HPI: Imaging: Pathology/Histology: Stage: Clinical Data (Exams, Labs, etc.): Molecular Pathology Results: Clinical Trial Availability: N/A Options Discussed: N/A Recommendations: Clear margin for melanoma in situ DISCLAIMER: The patient was discussed and the tumor board made recommendations but it is ultimatelyup to the treatment provider(s) and the patient to determine the patient???s care. documented in this encounter Plan of Treatment Upcoming Encounters Date Type Department Care Team (Late st Contact Info) Description 10/31/2023 9:15 AM EDT Office Visit Dermatology at [facility] [address] [place] [address] Dawson Broderick MD [facility] [place] [address] 07/23/2024 9:30 AM EDT Office Visit Dermatology at [facility] [address] [place] [address] Dawson Broderick MD [facility] [place] [address] documented as of this encounter Visit Diagnoses Not on filedocumented in this encounter Care Teams Yoke Setter Relationship Specialty Start Date End Date Phoenix Guzmán DO [address] [place] [address] [place] [address] PCP - General General Internal Medicine 02/20/15 documented as of this encounter
--- OUTSIDE RECORDS SUMMARY | 2023-10-23 09:06 | XMS_ITS | Encounter Summary ---
[place] [address] Care Team Providers Care Program Architect Name Role Phone Phoenix Guzmán DO Primary Care Provider [phone] Reason for Visit * Reason Onset Date Comments Appointment 08/25/2017 Encounter Details Date Type Department Care Team (Late st Contact Info) Description 08/25/2017 Telephone [place] [address] Walter Rae MD [facility] DR [place] [address] Appointment Social History Tobacco Use Types Packs/Day [...] * Telephone Encounter - Sun Pearson - 08/29/2017 2:19 PM EDT Patient scheduled * Telephone Encounter - Sun Pearson - 08/25/2017 10:32 AM EDT LM#[address] Scan for patients right hip. They wanted to coordinate for his up coming appointment on 10/26 in [facility]. Need to schedule scan before appointment with [facility] to discuss results (might have to push back [facility] appointment) ?? Can we assist with scheduling this patient? thankyou ? ----- Message ----- ? From: Gunnar Morin ? Sent: 08/25/2017 ?? 9:22 AM ? To: [facility] Nurse ? Subject: RE: Non-Urgent Medical Question ? This message is being sent by Sussy Morin on behalf of Gunnar Morin ? If a ct scan will help me with this hip issue I would like to schedule it in October. ??I am due pepe there on the for knees. ??Would it possible to schedule it for that day? ----- Message ----- ? From: Office of Walter Rae MD ? Sent: 08/25/2017 ??7:39 AM EDT ? To: Gunnar Morin ? Subject: RE: Non-Urgent Medical Question ? Sweta Maher, ? It looks like Dr. Rae suggested a CT scan if you were continuing to have difficulty. I am happy to put in these orders if you would like to proceed with this step ? Mary Dueñas RN ? ----- Message ----- ? From: Gunnar Morin ? Sent: 08/24/2017 10:00 PM EDT ? To: Walter Rae MD ? Subject: Non-Urgent Medical Question ? This message is being sent by Sussy Morin on behalf of Gunnar Morin ? My hip went out again today. ??Had to go to hospital to have it put back on. Came home with kneeimmobilizer on right knee-not happy! documented in this encounter Plan of Treatment Upcoming Encounters Date Type Department Care Team (Late st Contact Info) Description 10/31/2023 9:15 AM EDT Office Visit Dermatology at [facility] [address] [place] [address] Dawson Broderick MD [facility] [place] [address] 07/23/2024 9:30 AM EDT Office Visit Dermatology at [facility] [address] [place] [address] Dawson Broderick MD [facility] [place] [address] documented as of this encounter Visit Diagnoses Not on filedocumented in this encounter Care Teams Program Architect Relationship Specialty Start Date End Date Phoenix Guzmán DO [address] [place] [address] [place] [address] PCP - General General Internal Medicine 02/20/15 documented as of this encounter
--- OUTSIDE RECORDS SUMMARY | 2023-10-23 09:07 | XMS_ITS | Encounter Summary ---
[place] [address] Care Team Providers Care Curtain Worker Name Role Phone Phoenix Guzmán DO Primary Care Provider [phone] Encounter Details Date Type Department Care Team (Late st Contact Info) Description 08/23/2016 8:30 AM EDT Notes [place] [address] Social History Tobacco Use Types Packs/Day Years [...] of this encounter Progress Notes * Lou Rao - 08/23/2016 8:30 AM EDT .Office of Care Management Initial Assessment ?? Lou Rao reviewed record and discussed patient with Care Team. ?? Source of Information: Gunnar Morin Introduced self/reviewed role; services accepted. ?? Reason for Hospitalization: Primary OA of right knee. Right TKA on 09/21/16. ?? Past??Medical??History No past medical history on file. ?? Hospitalizations Within the Past 30 Days: ?? Anticipated Length Of Stay (If known): ?? Current Decision-Making Capacity: He is capable of making his own medical decisions. ?? Advance Care Planning: He has an advanced directive on file in his medical record. His designated agent to make healthcare decisions for him should he become incapacitated is his , Sussy Morin. ?? Current Coping/Education/Information Needs: He appears to understand the hospital course and discharge plans. He did have a total knee arthroplasty here at [facility] in the past. ?? Current Functional Ability: ?? Functional Status Prior to Admission: He ambulates independently without an assistive device. He isable to do his ADL without assistance. He drives. He is retired. ?? Home Environment: HE LIVES IN A 2 LEVEL HOUSE WITH 3 STEPS INTO THE HOUSE WITH A POST. THERE ARE 13STEPS TO THE SECOND FLOOR WHERE THERE BEDROOM IS BUT THE BATHROOM IS ON THE SECOND FLOOR. HE TYPICALLY STAYS ON THE MAIN LEVEL AFTER SURGERY IN THE RECLINER. HE HAS A TUB SHOWER. ?? Social & Family Supports/Community Resources: His primary caregiver(s) is going to be Sussy - she recently had a total joint replacement as well. ?? Behavioral Health History: None ?? Substance Use/Abuse: None ?? Other Pertinent/Service Specific Information: I discussed with the patient the potential avenues ofdischarge postoperatively. We discussed qualifications to go to a detention facility. We discussed Medicare guidelines for admission into a detention facilityas well as transportation, namely, ambulance and the Medicare guidelines associated with ambulance or wheelchair vans. We discussed the purpose and services provided by [facility]. I communicated that we will not know until after surgery what will be the best course of discharge for the patient based on medical necessity and that thisis why we plan for different courses of discharge. I informed the patient that they will be workingwith a wound care physician after surgery to facilitate the discharge plan. I encouraged the patient to call me with any questions or concerns prior to the surgery as well as when they discharge home. ? Health/Prescription Coverage: Primary Insurance: Medicare A and B Secondary Insurance: BCBS [place] P Prescription Coverage: BCBS Rx Preferred Pharmacy: [facility] [address] [facility] Other: None ?? Primary Care Provider: Phoenix Guzmán, ?? Patient/Caregiver Goals of Treatment: He wants to be able to mow the lawn, cut the wood, play pickle ball, ride the 4 wheelers, etc. ?? Potential Needs for Transition of Care: Rehab/SNF: No selection [facility] [address] [place] [id number] ? The patient/member services representative has been provided a list of Home Health Agencies/DME vendors which servetheir preferred geographic area. A letter describing our affiliations was reviewed with them and they were educated about their right to choose where referrals are placed. ? [facility] [address] [place] [address] ? Expected date of discharge: ? Referral routed to the [facility] for matching with agency/vendor and to provide any required information. ?? OP PT: [facility] DME: He has a 2- 2 FWW's, crutches, 2 canes, grabbers, sock assist, shoe horn, leg spinneret person, shower chair, and commode. Dialysis: No Community Resources: None Transportation: We discussed since we cannot determine the exact day or time of discharge preoperatively: His transportation must be readily available at time of discharge. He'll be transported by Other: None ?? Anticipated Barriers to Discharge/Special Considerations: None ?? Plan: He prefers to go home with [facility]. ? A member of the Care Management team will continue to monitor progress, follow for continuity of care and assist with transition of care planning. ?? Lou Rao Pager: [phone] documented in this encounter Plan of Treatment Upcoming Encounters Date Type Department Care Team (Late st Contact Info) Description 10/31/2023 9:15 AM EDT Office Visit Dermatology at [facility] [address] [place] [address] Dawson Broderick MD [facility] [place] [address] 07/23/2024 9:30 AM EDT Office Visit Dermatology at [facility] [address] [place] [address] Dawson Broderick MD [facility] [place] [address] documented as of this encounter Visit Diagnoses Not on filedocumented in this encounter Care Teams Curtain Worker Relationship Specialty Start Date End Date Phoenix Guzmán DO [address] [place] [address] [place] [phone] PCP - General General Internal Medicine 02/20/15 documented as of this encounter
--- OUTSIDE RECORDS SUMMARY | 2023-10-23 09:07 | XMS_ITS | Encounter Summary ---
[place] [address] Care Team Providers Care Painting Manager Name Role Phone RamirezPhoenix Susan MCDOWELL Primary Care Provider [phone] Reason for Referral * Physical Therapy (Routine) - Specialty Diagnoses / Procedures Referred By Omid shepherd Referred To Contact Physical Therapy Diagnoses Osteoarthritis of right knee, unspecified osteoarthritis type Walter Rae MD [facility] [place] [address] Referral ID Status Reason Start Date Expiration Date V isits Requested Visits Authorized [id number] Evaluate and Treat 10/12/2016 04/10/2017 20 20 Encounter Details Date Type Department Care Team (Late st Contact Info) Description 10/12/2016 [place] [address] Walter Rae MD [facility] ORTHOPAEDIC SURGERY [place], [place] [id number] Osteoarthritis of right knee, unspecified osteoarthritis type Social History Tobacco Use Types Packs/Day Years [...] at [facility] [address] [place] [address] Dawson Broderick MD [facility] [place] [address] 07/23/2024 9:30 AM EDT Office Visit Dermatology at [facility] [address] [place] [address] Dawson Broderick MD [facility] [place] [address] Scheduled Referrals Name Type Priority Associated Diagnoses Orde r Schedule Referral to Physical Therapy Outpatient Referral Routine Osteoarthritis of right knee, unspecified osteoarthritis type Ordered: 10/12/2016 documented as of this encounter Visit Diagnoses Diagnosis Osteoarthritis of right knee, unspecified osteoarthritis type documented in this encounter Care Teams Painting Manager Relationship Specialty Start Date End Date Phoenix Guzmán DO [address] [place] [address] [place] [address] PCP - General General Internal Medicine 02/20/15 documented as of this encounter
--- OUTSIDE RECORDS SUMMARY | 2023-10-23 09:07 | XMS_ITS | Encounter Summary ---
[place] [address] Care Team Providers Care Dairy Nutrition Specialist Name Role Phone Phoenix Guzmán DO Primary Care Provider [phone] Encounter Details Date Type Department Care Team (Late st Contact Info) Description 12/09/2016 1:00 PM EDT Office Visit Dermatology at [address] [address] Nathalia Tobin MD [facility] [address] [place] [address] Surgical wound infection, initial encounter (Primary Dx); Malignant melanoma, unspecified site Social History Tobacco [...] as of this encounter Progress Notes * Nathalia Tobin MD - 12/09/2016 1:00 PM EDT Images from the original note were not included. DERMATOLOGY - ESTABLISHED PATIENT NOTE Date of service: 12/09/2016 Gunnar Morin : 1945, 71 y.o. CC: Full skin exam and staging excision of a penile MM. HPI: Gunnar Morin is a 71 y.o. male last seen by me on 12/01. Penile lesion was biopsied and revealed MM, at least 0.79mm deep. Pt here today for staging excision. No complications with the biopsy site -- no pain, bleeding, oozing. Also here for a full skin exam to evaluate for other potential cutaneous malignancy. Aside from the aforementioned complaints, patient denies any new spot that has been growing, changing, bleeding, or symptomatic. 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 Amoxicillin Trihydrate Hives Review of Systems: - General: Feels well. A thorough review of system was performed. Denies unintentional weight loss,fever, night sweats, chest pain/palpitation, headaches/blurred vision, difficulty swallowing, diarrhea, N/V, hematochezia/melena, dysuria/hematuria. - Skin: No other skin concerns. Examination: - Constitutional: Patient was alert, well-appearing and in no noticeable distress. - Skin: A full body examination was performed, which included the head, neck, scalp, arms, hands, legs, feet, chest, back, abdomen, buttocks and genitals w patient's permission. Not cervical, inguinal, or axillar LAD. Diagnosis/Skin findings/Assessment/Plan: 1. Malignant Melanoma: Distal right shaft of the penis, a ~2.5 x 2.3 cm brown pigmented patch with central whitish-blue nodule with ulceration. 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 - Excision with second intent healing After the risks and benefits of the procedure were reviewed with the patient including but not limited to bleeding, infection, scar, cosmetic defect, recurrence, damage to underlying structures and failure to diagnose, and despite these risks, the patient wished to proceed. After swabbing the area with isopropyl alcohol, the area was anesthetized with Lidocaine 1:100,000 and epinephrine. The areawas prepped in the usual sterile fashion with Povidone- Iodine and a full excision to the subcutaneous layer was taken and sent for pathology. This was excised using 5mm margins. The need for postoperative wound care was reviewed with the patient who was given a postoperative wound care sheet. The patient was told to expect results by the end of 2-3 weeks, and to call me if they have not received the results by this time. - Tumor+margins: 3.2cm - Rx Keflex 500mg BID for 3 days given high-risk area. 2. Dermatofibroma--R calf, firm 5mm brown nodule. - benign, no treatment needed, patient was reassured 3. Skin Cancer Surveillance -- no growths or lesions suspicious for malignancy on the body parts examined as listed above - discussed the importance of frequently monitoring for spots that change, which include the ABCEs of melanoma features: asymmetry, irregular border, dark or changing colour, and evolution (increasing in size/diameter). If the patient noticed any of these features, in addition to bleeding, the patient was instructed to call us for a re-evaluation - discussed the importance of sun protection/avoidance, to use SPF30+ sunscreen with reapplication at least q3hr if in the sun, or wear sun-protective clothing with UPF ratings. - discussed w/ pt that up to 50% of melanoma arise from pre-existing nevi, while the other 50% arise de ana paula - recommended wearing broad-brimmed hat RTC: Pending pathology The following photos were obtained with patient consent: Note initiated by Nathalia Tobin MD. I am documenting this encounter acting as the scribe for and in the presence of Nathalia Tobin MD: I performed the above scribed service and agree with the accuracy of the documentation in this encounter. Reviewed and signed by Nathalia Tobin MD Resident in Dermatology [facility] Patient seen in conjunction with staff search optimization analyst: Kandy Bolton MD Section of Dermatology [facility] * Dawson Bolton MD - 12/09/2016 1:00 PM EDT I directly supervised Dr. Nathalia Tobin during this office visit. Dr. Tobin presented the history and physical exam to me. I then saw and examined this patient with Dr. Tobin. We reviewed the history and pertinent details and I confirmed the physical findings. I agree with the details of the history and physical exam as documented in Dr. Tobin's note. Procedure only today. Original biopsy showed melanoma, not pigmented SCC or any thing else in the differential. However, we do not know the final depth, today will remove the entire lesion, establishdepth and discuss further staging (SNL) and treatment options based on this. Will excise with a narrow margin, may have MIS at periphery, leave open, no closure, second intention healing, etc. Also di scussed this with . May bleed a little. If a lot, please call us first, do not go to ED. Will try to polanco the process given location and discomfort. Tumor board does not meet for 2 weeks. Has our numbers for over the weekend questions. DAWSON BOLTON MD Staff Physician documented in this encounter Plan of Treatment Upcoming Encounters Date Type Department Care Team (Late st Contact Info) Description 10/31/2023 9:15 AM EDT Office Visit Dermatology at [facility] [address] [place] [address] Dawson Bolton MD [facility] [address] [facility] [address] 07/23/2024 9:30 AM EDT Office Visit Dermatology at [facility] [address] [place] [phone] Dawson Bolton MD [facility] [address] [place] [address] documented as of this encounter Procedures Procedure Name Priority Date/Time Associated Diagnosis Comments SURGICAL PATHOLOGY REPORT Routine 12/09/2016 4:06 PM EDT SPECIMEN TO PATHOLOGY Routine 12/09/2016 4:06 PM EDT Malignant melanoma, unspecified site documented in this encounter Results * Surgical Pathology Report (12/09/2016 4:06 PM EDT) FINAL DIAGNOSIS (AP) [id number] ? Location: [facility] The signing pathologist has (i) examined the relevant preparation(s) for the specimen(s) and (ii) rendered or confirmed the diagnosis(es). . ?Surgical Pathology DIAGNOSIS A. Penis, excision: - Invasive melanoma, depth 1.76 mm ?? (see discussion) - Invasive melanoma does not involve specimen margins - In situ melanoma extends to the lateral margin - ??Scar and procedure site changes Electronically signed by: ??dEwin Boykin MD Verified: ??12/13/2016 ?Dermatopathologist DISCUSSION The residual melanoma in this specimen has a depth of 1.76 mm. This finding and the ulceration present in the prior biopsy are compatible with pT2b disease. Regression changes are present in a portion of the lesion. No vascular invasion or perineural invasion is identified. ADDITIONAL STUDIES Multiple step-leveled sections are reviewed. S100 immunohistochemistry highlights the melanocytic proliferation and assists in margination. There is no intravascular invasion identified by evaluation of routine stained slides and dual staining with CD31 and MelanA. CLINICAL INFORMATION Specimen Submitted: A - Skin, ~2.5x3cm brown patch with central ulcerated nodule, Excision, (1) Clinical History: Biopsy proven MM of the penis. This is a staging excision Clinical Diagnosis: Same SPECIMEN PROCESSING A - Labeled/Fixative: Patient demographics, formalin. Quantity/Size: Single, 2.7 x 2.0 x 0.3 cm. Tissue Description: Unoriented elliptical excision of round, wrinkled skin with a central 1.7 cm brown-black patch with irregular pigmentation and borders. Sections/Processing : The specimen is inked and serially sectioned. The ends are submitted in (1); the remainder in (2-5). (T5) ??jaclyn 12/13/2016 11:26 AM EDT [facility] 12/09/2016 4:06 PM EDT Nathalia Tobin MD PATHOLOGY/CYTOLOGY O RDERABLES Performing Organization Address City/[facility]/[place] [address] * Specimen to Pathology (surgical or derm) (12/09/2016 4:06 PM EDT) AP Specimen 12/09/2016 4:06 PM EDT 12/09/2016 6:52 PM EDT Narrative [facility] - 12/09/2016 6:52 PM EDT Specimen requisition ordered. ??Separate Pathology report to follow Resulting Agency Comment Spec In Lab Dawson Bolton MD PATHOLOGY/CYTOL OGY ORDERABLES Performing Organization Address City/[facility]/[place] [address] documented in this encounter Visit Diagnoses Diagnosis Surgical wound infection, initial encounter- Primary Malignant melanoma, unspecified site documented in this encounter Care Teams Dairy Nutrition Specialist Relationship Specialty Start Date End Date Phoenix Guzmán DO [address] [place] [address] [place] [address] PCP - General General Internal Medicine 02/20/15 documented as of this encounter
--- OUTSIDE RECORDS SUMMARY | 2023-10-23 09:07 | XMS_ITS | Encounter Summary ---
Author Organization Counts Include [facility] Address [facility] [place] [address] Care Team Providers Care Hydration Plant Operator Name Role Phone Phoenix Guzmán DO Primary Care Provider [phone] Reason for Visit * Reason Comments Skin Lesion * Consultation (Routine) - Closed Specialty Diagnoses / Procedures Referred By Omid shepherd Referred To Contact Dermatology Diagnoses penile lesion, concern for melanoma Phoenix Guzmán, [address] [place] [address] [place] [address] Nathalia Tobin MD [facility] DR MYKE [place] [address] Referral ID Status Reason Start Date Expiration Date V isits Requested Visits Authorized [id number] Closed Consult, Test & Treat Connection [facility] 11/29/2016 11/29/2017 1 1 Encounter Details Date Type Department Care Team (Late st Contact Info) Description 12/01/2016 2:00 PM EDT Office Visit Dermatology at [facility] [address] [place] [address] Nathalia Tobin MD [facility] DR MYKE [place] [address] Neoplasm of uncertain behavior of skin (Primary Dx) Social History Tobacco Use Types Packs/Day Years [...] Progress Notes * Nathalia Tobin MD - 12/01/2016 2:00 PM EDT Images from the original note were not included. DERMATOLOGY - NEW PATIENT NOTE Date of service: 12/01/2016 Gunnar Morin : 1945, 71 y.o. CC: Pigmented lesion Accompanied by Sussy his . HPI: Gunnar Morin is a 71 y.o. male referred by Phoenix Guzmán for a concerning penile lesion. First identified about 14 - 15 months ago, slowly growing. Bleeds occasionally when it rubs on his underwear. Denies pain, fever, vomiting or weight loss. 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 Relevant Skin History: - Skin cancer (including type): no Family History: Melanoma: no Relevant Social History: - - 2 kids - retired - former smoker - drinks alcohol - yes Medications: Reviewed, none relevant to current visit. Allergies: Allergies Allergen Reactions ??? Amoxicillin Trihydrate Hives Review of Systems: - General: Feels well. - Skin: No other skin concerns. Examination: - Constitutional: Patient was alert, well-appearing and in no noticeable distress. - Skin: Skin examination of the hands, forearms, groin, penis. 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 - concerning for malignancy, joint decision made to perform skin snip bx - discussed that once cell origin is known, we can discuss further on how proceed (i.e., saucerization to subcutaneous for depth, etc). Procedure: Skin biopsy using scissors. Discussed procedure and expectations including risks and benefits. Verbal consent obtained. Sterileskin prep performed. Local anesthesia with 1% xylocaine, 1/100,000 epinephrine. The lesion was removed by scissors technique to the level of dermis and submitted to Pathology. Hemostasis obtained. There were no complications; the patient tolerated the procedure well. Specimen to Pathology. The wound was dressed. Post-procedure expectations (including discomfort management), wound care and activity restrictions were reviewed. Follow-up based on Pathology results. RTC: Based on pathology results. Will discuss to have pt RTC for full skin exam in the near future. The following photos were obtained with patient consent: Note initiated by MARSHALL DECKER LPN. I am documenting this encounter acting as the scribe for and in the presence of Nathalia Tobin MD: I performed the above scribed service and agree with the accuracy of the documentation in this encounter. Reviewed and signed by Nathalia Tobin MD Resident in Dermatology [facility] Patient seen in conjunction with staff material reclaimer: Dawson Bolton MD Section of Dermatology [facility] * Dawson Bolton MD - 12/01/2016 2:00 PM EDT I directly supervised Dr. Nathalia Tobin during this office visit. Dr. Tobin presented the history and physical exam to me. I then saw and examined this patient with Dr. Tobin. We reviewed the history and pertinent details and I confirmed the physical findings. I agree with the details of the history and physical exam as documented in Dr. Tobin's note. DAWSON BOLTON MD Staff Physician documented in this encounter Plan of Treatment Upcoming Encounters Date Type Department Care Team (Late st Contact Info) Description 10/31/2023 9:15 AM EDT Office Visit Dermatology at [facility] [address] [place] [address] Dawson Bolton MD [facility] DR MYKE STE[place] [address] 07/23/2024 9:30 AM EDT Office Visit Dermatology at [facility] [address] [place] [address] Dawson Bolton MD [facility] [place] [address] documented as of this encounter Procedures Procedure Name Priority Date/Time Associated Diagnosis Comments SPECIMEN TO PATHOLOGY (NON-OR) Routine 12/01/2016 2:47 PM EDT Neoplasm of uncertain behavior of skin SURGICAL PATHOLOGY REPORT Routine 12/01/2016 2:47 PM EDT documented in this encounter Results * Surgical Pathology Report (12/01/2016 2:47 PM EDT) FINAL DIAGNOSIS (AP) [id number] ? Location: [facility] The signing pathologist has (i) examined the relevant preparation(s) for the specimen(s) and (ii) rendered or confirmed the diagnosis(es). . ?Surgical Pathology DIAGNOSIS Skin, distal right shaft of penis, snip: - Invasive melanoma (see table) Ulceration: ? Present Depth of Invasion: ?At least 0.79 mm Quincy 's Level: ?At least III Regression: ? Not identified Vascular Invasion: ?Not identified Perineural Invasion: ?Not identified Microscopic Satellites: ?? Not identified Dermal mitoses per mm2: 1 Tumor infiltrating ??lymphocytes: ?Present, non-brisk Solar Elastosis: ?Not identified Associated Nevus: ? Not identified Margins: Peripheral Margins: ? Positive (invasive and in situ melanoma) Deep Margin: ?Positive (invasive and in situ melanoma) Pathologic TNM Codes: ?? At least pT1b ?? (see discussion) Electronically signed by: ??Edwin Boykin MD: ??12/07/2016 ?Dermatopathologist DISCUSSION Consensus diagnosis was established among dermatopathologists. The sample has some crush artifact; however, the depth of invasion is measured with the help of immunohistochemistry in an intact portion of the specimen. Numerous mitoses are present within the in situ melanoma, although only a rare intradermal mitosis is identified. We acknowledge that the present sample represents a component of a larger lesion, and the findings may not be extrapolated to the lesion in its entirety. The provided staging information is therefore provisional. ADDITIONAL STUDIES Multiple step-leveled sections are reviewed. MelanA immunohistochemistry highlights the melanocytic proliferation and assists in margination. CLINICAL INFORMATION Specimen Submitted: A - Skin, distal right shaft of penis, snip (1) Clinical History: 2.5 x 2.3 cm brown patch with central whitish blue nodule with ulceration Clinical Diagnosis: Melanoma v bowenoid papillomatosis SPECIMEN PROCESSING A - Labeled/Fixative: Patient demographics, formalin. Quantity/Size: Single, 0.6 x 0.5 x 0.2 cm. Tissue Description: Shave of pink-white to brown skin. Sections/Processing: Bisected. (T1) ??sns 12/07/2016 3:13 PM EDT [facility] 12/01/2016 2:47 PM EDT Nathalia Tobin MD PATHOLOGY/[place] [address] * Specimen to Pathology (NON-OR) (12/01/2016 2:47 PM EDT) AP Specimen 12/01/2016 2:47 PM EDT 12/01/2016 6:39 PM EDT Narrative [facility] - 12/01/2016 6:39 PM EDT Specimen requisition ordered. ??Separate Pathology report to follow Resulting Agency Comment Spec In Lab Dawson Bolton MD PATHOLOGY/[place] [address] documented in this encounter Visit Diagnoses Diagnosis Neoplasm of uncertain behavior of skin- Primary documented in this encounter Care Teams Hydration Plant Operator Relationship Specialty Start Date End Date Phoenix Guzmán DO [address] [place] [address] [place] [address] PCP - General General Internal Medicine 02/20/15 documented as of this encounter
--- OUTSIDE RECORDS SUMMARY | 2023-10-23 09:07 | XMS_ITS | Encounter Summary ---
Author Organization [facility] [place] [address] Care Team Providers Care Rat Trapper Name Role Phone Phoenix Guzmán Primary Care Provider [phone] Reason for Visit * Reason Comments Aftercare Of Tjr left TKA 09/05/15 Encounter Details Date Type Department Care Team (Late st Contact Info) Description 08/23/2016 1:00 PM EDT Office Visit Orthopaedics at [facility] [place] [address] Matt Beltre PA [facility] [place] [address] Status post total knee replacement, unspecified laterality Social History Tobacco Use Types [...] Sign Reading Time Taken Comments Blood Pressure 115/85 08/23/2016 12:44 PM EDT Pulse 133 08/23/2016 12:44 PM EDT Temperature - - Respiratory Rate - - Oxygen Saturation 96% 08/23/2016 12:44 PM EDT Inhaled Oxygen Concentration - - Weight 132 kg (291 lb) 08/23/2016 12:44 PM EDT Height 182.9 cm (6') 08/23/2016 12:44 PM EDT Body Mass Index 39.47 08/23/2016 12:44 PM EDT documented in this encounter Progress Notes * Matt Beltre PA - 08/23/2016 1:00 PM EDT Arthroplasty/Orthopaedic History: 1. Right ELZBIETA - 11/06/1996 - Dr. Quintanilla 2. Left TKA - 09/07/15 - Dr. Rae 3. Right ELZBIETA revision w/ head-liner exchange - 06/29/16 - Dr. Rae ?? HPI: Gunnar Morin is a very pleasant 71 y.o. year-old male and is now 1 year post left total knee replacement The patient has been doing well. The patient is not having any pain.. No fevers, chills, nausea, vomiting, or symptoms of infection. Gunnar has been ambulating with no assistive device .He is not taking narcotic pain medicine. ROS: Denies: fever, chills, night sweats, nausea, or vomiting BP 115/85 Pulse 133 Ht 182.9 cm (6') Wt (!) 132 kg (291 lb) SpO2 96% BMI 39.47 kg/m2 Physical Exam: Well-appearing male in no acute distress. Alert and Oriented x 3 and answers all questions appropriately. The incision is well healed, with no signs of infection. Knee Exam: Left Knee ROM: Extension:0 Flexion: 110 Alignment: 0-4 degrees Neutral Stability: A/P Translation <5mm Varus <5mm Valgus <5mm Extension La degrees or less Patella Tracking: Normal Pulses Palpable: Left PT:Yes Left DP:Yes Motor/Sensory: Distal Motor: Normal Distal Sensory: Normal Quadriceps Strength: 5 X-RAYS: Multiple radiographic views were obtained at my request and reviewed with the patient. X-rays show a well-placed prosthesis with no evidence of fracture, subsidence, loosening, or periprosthetic complication. IMPRESSION 1. Total knee arthroplasty without definite acute complication. 2. Attention to the presence of lucency at the interface of the femoral prosthesis in the medial interface of the tibia on subsequent studies is recommended. Questionnaire Responses: [facility] Surgical Postop Visit 08/23/2016 PROMIS-10 General Health Very Good PROMIS-10 Quality of Life Very Good PROMIS-10 Physical Health Very Good PROMIS-10 Mental Health Very Good PROMIS-10 Social Activity Very Good PROMIS-10 Everyday Activities Mostly PROMIS-10 Pain 1 PROMIS-10 Fatigue Mild PROMIS-10 Social Roles Very Good PROMIS-10 Anxious or Depressed Never PROMIS PHYSICAL HEALTH SCORE 50.8 PROMIS MENTAL HEALTH SCORE 56 HOOS JR Scores - KOOS JR Scores 73.34 Problems with surgical incision/wound after surgery No Gone to ER since knee surgery No Admitted to hospital since recent ortho surgery No Additional surgery on same body part No Hospital - Surgeon - Date of surgery - Reason for surgery - TKA Grade 8 Pain in other KNEE Moderate ELZBIETA Grade - Pain in other HIP - Back pain at this moment None Satisfaction with Treatment Satisfied Choose Same Treatment Again Definitely yes Orthopeadics [facility] Response 08/23/2016 HOOS JR Scores - KOOS JR Scores 73.34 [facility] 08/23/2016 HOOS JR Scores - KOOS JR Scores 73.34 ASSESSMENT/PLAN: Mr. Morin is a 71 y.o. year old male status post left total knee replacement Doing well postoperatively. Continue weightbearing as tolerated and working on range of motion. We will see him back in 1 years for repeat examination. X-rays will be needed at that time. Patient may return to normal activities as his pain and function allow. All questions were answered. Signed: JACEK Shoemaker 08/23/2016 documented in this encounter Plan of Treatment Upcoming Encounters Date Type Department Care Team (Late st Contact Info) Description 10/31/2023 9:15 AM EDT Office Visit Dermatology at [facility] [address] [place] [address] Dawson Broderick MD [facility] DR [address] [place] [address] 07/23/2024 9:30 AM EDT Office Visit Dermatology at [facility] [address] [place] [address] Dawson Broderick MD [facility] DR MYKE [place] [address] documented as of this encounter Visit Diagnoses Diagnosis Status post total knee replacement, unspecified laterality documented in this encounter Care Teams Rat Trapper Relationship Specialty Start Date End Date Phoenix Guzmán DO [address] [place] [address] [place] [address] PCP - General General Internal Medicine 02/20/15 documented as of this encounter
--- OUTSIDE RECORDS SUMMARY | 2023-10-23 09:07 | XMS_ITS | Encounter Summary ---
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 CC: Gunnar Morin is a 71 y.o. male with the following problems and medications that is being seen in the clinic for consultation at the request of his surgeon Dr. Walter Rae for preoperative risk stratification and management recommendations in anticipation of right total knee arthroplasty for symptomatic OA. HPI - Pain - Location - Right knee, Quality - aching, Onset - gradual, Duration - several months, Intensity - moderate to severe, Aggravating factors - standing, walking, stepping, bending, Alleviating factors - NSAID, APAP, rest, topical, PT, Associated - has recovered well from other knee and hipreplacement. Patient Active Problem List Diagnosis Code ??? s/p revision R ELZBIETA with head-liner exchange 06/29/16 (Dr. Rae) Z96.649 ??? Osteoarthritis of both knees M17.0 [...] ??? Status post total knee replacement Z96.659 Current Outpatient Prescriptions Medication Sig Dispense Refill ??? carvedilol (COREG) 12.5 mg Tablet Take 12.5 mg by mouth 2 times daily (with meals). 4 ??? pravastatin (PRAVACHOL) 10 mg Tablet Take 1 tablet by mouth nightly. 30 tablet 0 ??? nitroGLYcerin (NITROSTAT) 0.4 mg Tablet, Sublingual Place 1 tablet under the tongue every 5 minutes as needed for Chest pain. 90 tablet 12 ??? clindamycin (CLEOCIN) 150 mg Capsule See Admin Instructions. Reported on 07/28/2016 ??? aspirin 81 mg EC tablet Take 81 mg by mouth daily. No current facility-administered medications for this visit. Social History Occupational History ??? Not on [...] for chest pain, palpitations and leg swelling. Gastrointestinal: Negative for abdominal pain, anal bleeding and blood in stool. Endocrine: Negative for polydipsia and polyphagia. Genitourinary: Negative for dysuria, frequency, hematuria and urgency. Nocturia x2 Musculoskeletal: Positive for gait problem and joint swelling. Skin: Negative for pallor and rash. Allergic/Immunologic: [...] Temperature Temp: -- Heart Rate Heart Rate: 133 Heart Rate: [80-133] Blood Pressure BP: 115/85 BP: (115)/(85) Respiratory Rate Resp: -- SpO2 SpO2: 96 % SpO2: [96 %] Body mass index is 39.47 kg/(m^2). Height: 182.9 cm (6') Physical Exam Constitutional: He is oriented to person, place, and time. He appears well- developed. No distress. HENT: Head: Normocephalic and atraumatic. Mouth/Throat: Oropharynx is clear and moist. No oropharyngeal exudate. Eyes: Conjunctivae and EOM are normal. Right eye exhibits no discharge. Left eye exhibits no discharge. No scleral icterus. Neck: Neck supple. No tracheal deviation present. Cardiovascular: Normal rate and regular rhythm. Exam reveals no gallop and no friction rub. Murmur heard. S1 S2 with 2/6 TABBY aortic, not radiating to carotids. Pulmonary/Chest: Effort normal and breath sounds normal. No stridor. No respiratory distress. He has no wheezes. He has no rales. Abdominal: Soft. Bowel sounds are normal. There is no tenderness. There is no rebound and no guarding. Musculoskeletal: He exhibits no edema. Right paramedian scar from prior ACL surgery in 1974. Has full extension in this knee, power is 5/5, flexion to 95. Lymphadenopathy: He has no cervical adenopathy. Neurological: He is alert and oriented to person, place, and time. He exhibits normal muscle tone. Coordination normal. Skin: Skin is warm and dry. He is not diaphoretic. No pallor. Psychiatric: He has a normal mood and affect. His behavior is normal. Judgment and thought content normal. Lab Results Component Value Date WBC 5.5 08/23/2016 RBC 4.62 08/23/2016 HGB 14.6 08/23/2016 HCT 44.0 08/23/2016 MCV 95.2 (H) 08/23/2016 MCH 31.6 08/23/2016 MCHC 33.2 08/23/2016 PLATELET 298 08/23/2016 RDWCV 13.1 08/23/2016 Lab Results Component Value Date NA 139 08/23/2016 K 4.7 08/23/2016 CL 98 08/23/2016 CO2 27 08/23/2016 BUN 19 08/23/2016 CREATININE 1.21 08/23/2016 GLUCOSE 80 08/23/2016 CALCIUM 9.3 08/23/2016 Lab Results Component Value Date AST 16 07/10/2015 ALT 24 07/10/2015 ALKPHOS 41 07/10/2015 BILITOT 0.3 07/10/2015 BILIDIR 0.1 07/10/2015 Lab Results Component Value Date PT 13.2 08/23/2016 INR 1.0 08/23/2016 PTT 28 08/23/2016 Lab Results Component Value Date CK 116 07/11/2015 TROPONINT <0.03 07/11/2015 Estimated Creatinine Clearance: 81 mL/min (based on Cr of 1.21). EKG (image reviewed): normal EKG, normal sinus rhythm. Xray images of his right knee reviewed - FINDINGS: There is marked loss of joint space compartments with flattening of the femoral condyles, marginal osteophyte formation. No effusion. No significant change from prior exam ?? IMPRESSION Severe osteoarthritic changes as above. A/P 1. Preop examination 2. Primary osteoarthritis of right knee 3. 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 He reports again that it was an incidental finding and he ended with the stents. He has no complaints about his meds that he is on currently and will continueto work with his PCP regards the possible titration down of his Coreg after recovery from his surgery. Major Risk Factor per the Revised Cardiac [...] and more (manages self and walking outside, goes to his camp and walks there but has not done it after his surgery, he is going upstairs at home regularly, he had PT at home and it was brief after his hip revision) and based on the ACC/AHA 2014 guideline no further cardiovascular testing is indicated. ARISCAT/CANET Score - estimates the risk of postoperative pulmonary complications as being low ~3.5%. STOB BANG Score - High risk for YESICA. Per the ACS NSQIP calculator I estimated the following. He is very happy with the outcome of his prior surgeries and will proceed as planned with the current right TKA. He will continue his asa, statin and carvedilol through the morning of surgery. He will resume his active lifestyle and going backto his camp after his recovery from this surgery to address his elevated BMI and its risk includingOSA and complications of arthroplasty as well as increased risk of revision. RECCO: Needed straight cath after his prior surgery although he did not have urge to void. Suggest higher threshold of 800 ml to catheterize if asymptomatic and no GLADYS. Hold coreg if SBP<100 or HR<50 May use Zocor 20mg po HS instead of his pravastatin Continue ASA. documented in this encounter Plan of Treatment Upcoming Encounters Date Type Department Care Team (Late st Contact Info) Description 10/31/2023 9:15 AM EDT Office Visit Dermatology at [facility] [address] [place] [address] Dawson Broderick MD [facility] [place] [address] 07/23/2024 9:30 AM EDT Office Visit Dermatology at [facility] [address] [place] [address] Dawson Broderick MD [facility] [place] [address] documented as of this encounter Visit Diagnoses Diagnosis Preop examination Preoperative examination, unspecified Primary osteoarthritis of right knee Primary localized osteoarthrosis, lower leg 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
--- OUTSIDE RECORDS SUMMARY | 2023-10-23 09:07 | XMS_ITS | Encounter Summary ---
Author Organization [facility] [place] [address] Care Team Providers Care Clinical Coder Name Role Phone DevantePhoenix orozco Susan MCDOWELL Primary Care Provider [phone] Reason for Visit * Auth/Cert Specialty Diagnoses / Procedures Referred By Omid shepherd Referred To Contact Diagnoses Osteoarthritis of right knee Right knee OA Procedures PRO TOTAL KNEE ARTHROPLASTY @TOTAL KNEE ARTHROPLASTY (WRVU 20.72) Referral ID Status Reason Start Date Expiration Date Visits Re quested Visits Authorized 1 1 Encounter Details Date Type Department Care Team (Latest Contact Info) Description 09/21/2016 11:18 AM EDT - 09/22/2016 4:06 PM EDT Hospital Encounter [address] [place] [address] Walter Rae MD [facility] [place] [address] Status post total replacement of right hip Discharge Disposition: Home with VNA Social History [...] Reading Time Taken Comments Blood Pressure 122/77 09/22/2016 12:50 PM EDT Pulse 82 09/21/2016 6:15 PM EDT Temperature 37 ??C (98.6 ??F) 09/22/2016 12:50 PM EDT Respiratory Rate 20 09/22/2016 12:50 PM EDT Oxygen Saturation 96% 09/22/2016 12:50 PM EDT Inhaled Oxygen Concentration - - Weight 133.8 kg (295 lb) 09/21/2016 11:49 AM EDT Height 182.9 cm (6') 09/21/2016 11:49 AM EDT Body Mass Index 40.01 09/21/2016 11:49 AM EDT documented in this encounter Discharge Summaries * Nellie Guzman PA - 09/22/2016 8:51 AM EDT Discharge Summary Patient Name: Gunnar Morin Patient Age: 71 y.o. Language: Hebrew Race: White Ethnicity: Not nor Admit date: 09/21/2016 Discharge date and time: 09/22/2016 Attending Physician: Walter Rae MD Discharge Physician: Walter Rae MD Follow-up Recommendations for Providers: See discharge instructions for additional details. Future Appointments Date Time Provider Department Center 10/20/2016 9:[address] [facility] 10/20/2016 10:00 AM Walter Rae MD [facility] Inpatient Provider Contact Information: Walter Rae MD Orthopedics: [phone] After hours and weekends, call [facility] Shiftman, , and have the Orthopedic resident paged. Discharge Diagnoses (Hospital Problems) and Secondary Diagnoses (Chronic Problems): Active Hospital Problems Diagnosis ??? sp R TKA on 09/21/16 Butch Resolved Hospital Problems Diagnosis Date Resolved No resolved problems to display. Active Non-Hospital Problems Diagnosis ??? Status post total knee replacement ??? [...] ELZBIETA with head-liner exchange 06/29/16 (Dr. Rae) ??? Osteoarthritis of both knees ??? Bilateral knee pain Operations/Major Procedures: 09/21/2016 Surgeon(s) and Role: * Walter Rae MD - Primary * Tucker Beltre MD Procedure(s): @TOTAL KNEE ARTHROPLASTY (WRVU 20.72) MODIFIER, ATTUNE CURVED FIXED PLATFORM, DEPUY History of Presentation: Gunnar Morin is a 71 y.o. male with right knee osteoarthritis. After exhausting conservative measures, the patient elected to proceed with total knee arthroplasty. The risks and benefits of this procedure were reviewed in depth and patient received medical clearance prior to procedure. Hospital Course: The patient was admitted for the above operation. DVT prophylaxis is: Aspirin 81 mg twice daily. Patient began rehab on POD#1 with weight bearing as tolerated of right leg remembering to use and assistive device at all times for balance and protection. Smith was removed POD#0 and patient was voiding spontaneously. On POD#1 the operative dressing was dry and intact and was benign. Patient did not have a bowel movement prior to discharge but was passing flatus and was taking a diet without difficulty. Pain was well controlled on oral medications. By POD#1 the patient was medically stable and was cleared for safe discharge to home per PT. Vital Signs at Discharge: Weight: Wt Readings from Last 1 Encounters: 09/21/ (!) 133.8 kg (295 lb) Height: Ht Readings from Last 1 Encounters: 09/21/16 182.9 cm (6') HC: HC Readings from Last 1 Encounters: No data found for HC BMI: Body mass index is 40.01 kg/(m^2). Last value Range last 24 hrs Temperature Temp: 37 ??C (98.6 ??F) Temp: [36.5 ??C (97.7 ??F)-37 ??C (98.6 ??F)] Heart Rate Heart Rate: 82 Heart Rate: [67-82] Blood Pressure BP: 122/77 BP: (100-137)/(52-89) Respiratory Rate Resp: 20 Resp: [14-22] SpO2 SpO2: 96 % SpO2: [90 %-97 %] Art BP BP (Arterial Line): -- Functional and Cognitive Status: Patient mobilizing with walker, cognitively intact at baseline mental status at time of discharge. Important Studies and Lab Data: Labs: Last 3 wbc, hgb, hct plt Recent Labs 09/22/16 0346 08/23/16 0935 06/30/16 0459 WBC 11.2* 5.5 10.6* HGB 12.9* 14.6 13.2* HCT 37.1* 44.0 39.2* PLATELET 218 298 197 Last 3 Lytes Recent Labs 09/22/16 0346 08/23/16 0935 06/30/16 0459 NA 137 139 140 K 4.7 4.7 5.1* CL 100 98 102 CO2 24 27 26 BUN 19 19 15 CREATININE 1.20 1.21 1.12 Studies: No new studies. Xr Knee 1-2 Views Left (generic) Result Date: 08/23/2016 EXAMINATION: XR KNEE 1-2 VIEWS LEFT (GENERIC) CLINICAL HISTORY: check status of hardware TECHNIQUE:AP and lateral radiograph of the left knee. COMPARISON: Knee radiograph 10/08/2015. FINDINGS: As seenon the patient's only previous postoperative study a total knee arthroplasties in place. Comparisonto the earlier study is compromised by the oblique projection of the arthroplasty on both the AP and lateral view on the previous study. There is persistent anterior soft tissue swelling. No large effusion is identified. No fracture. No component displacement. A well-defined radiolucency is presentat the anterior interface of the femoral prosthesis. Given the well-defined nature of the bone I suspect this is nonacute resorption of bone but is likely related to the original surgery. Again direct comparison is not possible due to the obliquity of the previous study. The inability to compare with the previous study also compromises evaluation of the tibia where an area of lucency projecting at the medial tray is concerning for early resorption of bone. There is no additional resorption of bone at the lateral tray or the tibial stem. 1. Total knee arthroplasty without definite acute complication. 2. Attention to the presence of lucency at the interface of the femoral prosthesis in the medial interface of the tibia on subsequent studies is recommended. I have personally reviewed the image(s) and the residents interpretation and agree with the findings, Ezekiel Juares at 08/23/2016 11:39 AM Transfusions: No Discharge Conditions/Prognosis: Stable, awake, and alert. Mobilizing as noted above, pain controlled on oral medications. Discharge to: Home With home services. Updated Allergies/ADRs: Allergies Allergen Reactions ??? Amoxicillin Trihydrate Hives Immunizations Given this Hospitalization: There is no immunization history on file for this patient. Discharge Medications: Your Medications New Medications Dose Details acetaminophen 500 mg Tab Commonly known as: TYLENOL Take 2 tablets by mouth every 8 hours. Around the clock until 10/01/16, and then as needed. DO NOT EXCEED 3000 mg tylenol in a 24 hour period. 1000 mg Refills: 0 bisacodyl 10 mg Supp Commonly known as: DULCOLAX Place 1 suppository rectally daily as needed (constipation). 10 mg Refills: 0 gabapentin 300 mg Cap Commonly known as: NEURONTIN Take 1 capsule by mouth nightly for 27 days. 300 mg Quantity: 27 capsule Refills: 0 naproxen 500 mg Tab Commonly known as: NAPROSYN Take 1 tablet by mouth 2 times daily (with meals) for 41 days. 500 mg Quantity: 82 tablet Refills: 0 omeprazole 20 mg Cpdr Commonly known as: PriLOSEC Take 1 capsule by mouth daily for 41 days. 20 mg Quantity: 41 capsule Refills: 0 oxyCODONE 5 mg Tab Commonly known as: ROXICODONE Take 1-3 tablets by mouth every 4 hours as needed for Pain. Take the smallest dose possible to control your pain. As your pain improves take smaller, less frequent doses. You may break the tablet to achieve a smaller dose. 5-15 mg Quantity: 50 tablet Refills: 0 polyethylene glycol 17 gram Pwpk Commonly known as: MIRALAX Take 17 g by mouth 2 times daily as needed (bowel regimen/constipaton). 17 g Refills: 0 senna-docusate 8.6-50 mg Tab Commonly known as: PERICOLACE Take 2 tablets by mouth 2 times daily. 2 tablet Quantity: 60 tablet Refills: 2 Continued medications with new dosing Dose Details aspirin 81 mg Tbec Take 1 tablet by mouth 2 times daily for 29 days. And then resume once daily dose What changed: - when to take this - additional instructions 81 mg Quantity: 58 tablet Refills: 0 Continued medications, unchanged Dose Details carvedilol 12.5 mg Tab Commonly known as: COREG Take 12.5 mg by mouth 2 times daily (with meals). 12.5 mg Refills: 4 clindamycin 150 mg Cap Commonly known as: CLEOCIN See Admin Instructions. Reported on 07/28/2016 Refills: 0 nitroGLYcerin 0.4 mg Subl Commonly known as: NITROSTAT Place 1 tablet under the tongue every 5 minutes as needed for Chest pain. 0.4 mg Quantity: 90 tablet Refills: 12 pravastatin 10 mg Tab Commonly known as: PRAVACHOL Take 1 tablet by mouth nightly. 10 mg Quantity: 30 tablet Refills: 0 Smoking Status at Discharge: History Smoking Status ??? Former Smoker ??? Quit date: 01/11/2001 Smokeless Tobacco ??? Never Used Instructions Given to Patient at Discharge: There are no outpatient Patient Instructions on file for this admission. General Instructions Activity: 1. Your weight-bearing status is - weight bearing as tolerated of right leg. 2. Remember to use a walker [...] days after surgery. After your dose on 10/21/16 resume your usual dose ofAspirin, unless you are told otherwise by your [...] bowel movement. You can also take an xjxq-zql-njjtjrv medication, Miralax if needed to combat constipation. 2. If you need a renewal on your narcotic pain medication, you need to give the Orthopedic clinic enough time to process your request. This can take up to three days, so plan accordingly. 3. Continue acetaminophen (Tylenol) 1,000mg every 8 hours around the clock until 10/01/16 (for ten days after your surgery). This can be effective in controlling pain along with your other medications.After that you can take Tylenol as needed per package insert. Do not take more than 3,000mg of acetaminophen in a 24 hour period. 5. You are being discharged on prescription strength naproxen (Aleve). This medication is a type ofnonsteroidal anti-inflammatory (NSAID). This will help with your pain and inflammation. Take this twice a day as needed for the next 6 weeks. Your last dose will be on 11/02/16. If you no longer are requiring the narcotic pain medication you may change the way you take the prescribed naproxen and instead take twice a day as needed. 6. You are being discharged on a proton pump inhibitor (prilosec). This will decrease stomach irritation that may be caused by NSAIDs. Take this daily for the next 6 weeks while you are on the NSAID. 7. You are being discharged on gabapentin (Neurontin), a non-narcotic medication that will help with your pain at night and allow you to sleep better. Take this at night for the next 4 weeks. Shower (michoacano/sutures): 1. You can shower but [...] Staple/suture removal 2 weeks after surgery (approximately 10/05/16). 2. Do not lift the edge of the Mepilex dressing to inspect the incision, it will not re-adhere. Remove your operative dressing 7 days from your surgery (09/28/16). When it is removed you can leave theincision open to air or cover it with a light dressing. 3. If you have lots of drainage when you get home (and it is before 09/28), remove this operative dressing and replace it with dry [...] your leg elevated as much as possible. FOLLOW-UP APPOINTMENTS: 1. You will have follow-up appointments at [facility] as indicated below in Future Appointment and Orders. 2. You will need to have x-rays prior to your follow-up appointment on 10/20/16. Please come to Radiology, desk 3T, 1 hour BEFORE that appointment for those x-rays. Future Appointments Date Time Provider Department [place] 10/20/2016 9:[address] [facility] DX ROOM 6 [facility] 10/20/2016 10:00 AM Walter Rae MD [facility] If you have questions or concerns: Monday through Monday, 8 AM - 5 PM, please call Walter Christianson MD's office at . If it is after 5 PM, the weekend, or holidays, please call and ask to speak with theOrthopedic resident on-call. Future Appointments and Orders Future Appointments Provider Department Dept Phone 10/20/2016 10:00 AM Walter Rae MD Orthopaedics [phone] Future Orders Complete By Expires Referral to Home Health - at DISCHARGE [[id number] CPT(R)] As directed Process Instructions: Scheduling Instructions: Comments: DISCHARGE DOCUMENTATION FOR VNA SERVICES (INCLUDING PATIENTS WITH MEDICARE COVERAGE BEING DISCHARGED HOME WITH VNA SERVICES AND THOSE PATIENTS WITH MEDICARE COVERAGE WHO ARE BEING DISCHARGED HOME WITH HOSPICE SERVICES) PATIENT'S LOCATION: Gunnar Morin [address] [place] [address] [place] [phone] (home) Cell: Telephone Information: Technical Analyst's Name: self In discussion with the attending physician, it is certified that this patient is under their care and that they, or a nurse practitioner, clinical nurse specialist or physician's assistant in nursing who is working directly with them, had a face to face encounter that meets the physician face to face encounter requirements with this patient on 09/22/2016 The encounter with the patient was in whole, or in part, for the following medical condition, whichis the primary reason for home health care services: [ R TKA ] In discussion with the primary medical team, it is certified that, based on their findings, the indicated services are medically necessary and appropriate for home health services. HOME HEALTH AGENCY: [facility] PHONE: [phone] FAX: [phone] Home care orders for Total Knee Replacements for PT: Detention(SN) eval if indicated on admission visit 1. ASA 2.Do not lift the edge of the mepilex dressing to observe the incision; this dressing needs to stayin place until 7 days after surgery. 3. Staple removal in 10-14 days - (Approx 10/05/16) PER MD/INTERNIST/PA ORDERS 4. Continue PT rehab for balance, endurance, joint mobility, ROM, Strength, TKA protocol FOR MEDICARE ONLY: (please delete this section if not Medicare) In discussion with the attending physician, it is certified that the clinical findings support thatthis patient is homebound ;i.e. absences from home require considerable and taxing effort due to:need for walking aide and assist to leave home Please note that any additional orders needs or changes will need to be obtained from this patient's PCP: Phoenix Guzmán DO [address] [place] [address] All VNA agencies which cover the area of patient's residence have been reviewed, either verbally santy writing, and patient/family have chosen the indicated home health care agency for home services. Questions: Agency name and contact information: [facility] Patient location post discharge: home What services are requested: Registered Nurse Physical Therapy Start date: Responsible MD post discharge contact info: PCP Primary Care Provider: Phoenix Guzmán DO [phone] Discharge References/Attachments None documented in this encounter Discharge Instructions * Discharge Instructions* Nellie Guzman PA - 09/22/2016 3:30 PM EDT Activity: 1. Your weight-bearing status is - weight bearing as tolerated of right leg. 2. Remember to use a walker [...] days after surgery. After your dose on 10/21/16 resume your usual dose ofAspirin, unless you are told otherwise by your [...] bowel movement. You can also take an lmvw-hhj-uouqrog medication, Miralax if needed to combat constipation. 2. If you need a renewal on your narcotic pain medication, you need to give the Orthopedic clinic enough time to process your request. This can take up to three days, so plan accordingly. 3. Continue acetaminophen (Tylenol) 1,000mg every 8 hours around the clock until 10/01/16 (for ten days after your surgery). This can be effective in controlling pain along with your other medications.After that you can take Tylenol as needed per package insert. Do not take more than 3,000mg of acetaminophen in a 24 hour period. 5. You are being discharged on prescription strength naproxen (Aleve). This medication is a type ofnonsteroidal anti-inflammatory (NSAID). This will help with your pain and inflammation. Take this twice a day as needed for the next 6 weeks. Your last dose will be on 11/02/16. If you no longer are requiring the narcotic pain medication you may change the way you take the prescribed naproxen and instead take twice a day as needed. 6. You are being discharged on a proton pump inhibitor (prilosec). This will decrease stomach irritation that may be caused by NSAIDs. Take this daily for the next 6 weeks while you are on the NSAID. 7. You are being discharged on gabapentin (Neurontin), a non-narcotic medication that will help with your pain at night and allow you to sleep better. Take this at night for the next 4 weeks. Shower (michoacano/sutures): 1. You can shower but [...] Staple/suture removal 2 weeks after surgery (approximately 10/05/16). 2. Do not lift the edge of the Mepilex dressing to inspect the incision, it will not re-adhere. Remove your operative dressing 7 days from your surgery (09/28/16). When it is removed you can leave theincision open to air or cover it with a light dressing. 3. If you have lots of drainage when you get home (and it is before 09/28), remove this operative dressing and replace it with dry [...] your leg elevated as much as possible. FOLLOW-UP APPOINTMENTS: 1. You will have follow-up appointments at [facility] as indicated below in Future Appointment and Orders. 2. You will need to have x-rays prior to your follow-up appointment on 10/20/16. Please come to Radiology, desk 3T, 1 hour BEFORE that appointment for those x-rays. Future Appointments Date Time Provider Department Center 10/20/2016 9:[address] [facility] DX ROOM 6 [facility]ray [facility] 10/20/2016 10:00 AM Walter Rae MD [facility] 3C [facility] If you have questions or concerns: Monday through Monday, 8 AM - 5 PM, please call Walter Christianson MD's office at . If it is [...] 1 tablet by mouth 2 times daily for 29 days. And then resume once daily dose 58 tablet 09/22/2016 10/21/2016 gabapentin (NEURONTIN) 300 mg Capsule Take 1 capsule by mouth nightly for 27 days. 27 capsule 09/22/2016 10/19/2016 naproxen (NAPROSYN) 500 mg Tablet Take 1 tablet by mouth 2 times daily (with meals) for 41 days. 82 tablet 09/22/2016 11/02/2016 omeprazole (PRILOSEC) 20 mg Capsule, Delayed Release(E.C.) Take 1 capsule by mouth daily for 41 days. 41 capsule 09/22/2016 11/02/2016 acetaminophen (TYLENOL) 500 mg Tablet Take 2 tablets by mouth every 8 hours. Around the clock until 10/01/16, and then as needed. DO NOT EXCEED 3000 mg tylenol in a 24 hour period. 09/22/2016 12/02/2017 bisacodyl (DULCOLAX) [address] 1 suppository rectally daily as needed (constipation). 09/22/2016 12/22/2016 polyethylene glycol (MIRALAX) 17 gram Powder in Packet Take 17 g by mouth 2 times daily as needed (bowel regimen/constipaton). 09/22/2016 10/20/2016 senna-docusate (PERICOLACE) 8.6-50 mg Tablet Take 2 tablets by mouth 2 times daily. 60 tablet 2 09/22/2016 10/20/2016 oxyCODONE (ROXICODONE) 5 mg Tablet Take 1-3 tablets by mouth every 4 hours as needed for Pain. Take the smallest dose possible to control your pain. As your pain improves take smaller, less frequent doses. You may break the tablet to achieve a smaller dose. 50 tablet 09/22/2016 10/20/2016 pravastatin (PRAVACHOL) 10 mg Tablet Take 1 tablet by mouth nightly. 30 tablet 08/19/2015 02/03/2017 documented as of this encounter Progress Notes * Tucker Beltre MD - 09/22/2016 5:40 AM EDT Orthopaedic Surgery Progress Note SURGERY/DIAGNOSIS: R TKA on 09/21/16 ATTENDING: Butch Patient Active Problem List Diagnosis Code ??? [...] sp R TKA on 09/21/16 Butch M17.11 Interval History: No major issues, pain well controlled, Denies CP/SOB/N/V Temp: [36.5 ??C (97.7 ??F)-37 ??C (98.6 ??F)] Heart Rate: [67-82] Resp: [14-22] BP: (100-138)/(52-91) SpO2: [90 %-97 %] Heart Rate from SPO2: [64 bpm-99 bpm] I/O last 3 completed shifts: In: 1111 [I.V.:1111] Out: 800 [Urine:650; Blood:150] I/O this shift: In: 890 [P.O.:490; I.V.:400] Out: 825 [Urine:825] PE: Gen- AOx3, NAD HEENT- NCAT CV- RRR checked peripherally Pulm- No incr WOB RLE Dressing C/D/I SITLT in DP/SP/T Firing EHL/TA/GC Foot WWP Last 3 wbc, hgb, hct plt Recent Labs 09/22/16 0346 08/23/16 0935 06/30/16 0459 WBC 11.2* 5.5 10.6* HGB 12.9* 14.6 13.2* HCT 37.1* 44.0 39.2* PLATELET 218 298 197 Last 3 Lytes Recent Labs 09/22/16 0346 08/23/16 0935 06/30/16 0459 NA 137 139 140 K 4.7 4.7 5.1* CL 100 98 102 CO2 24 27 26 BUN 19 19 15 CREATININE 1.20 1.21 1.12 Imaging: nothing to review A/P: 71 y.o. male sp R TKA on 09/21/16. PMH significant for above problem list. Doing well post operatively. ?? Activity: WBAT ?? Pain Control: multimodal analgesia, limit oral narcotics ?? Antibiotics: ancef x 24 hours ?? Anticoagulation: ASA ?? Dressing/Splints/Wound: michoacano x 2 weeks, mepilex x 7 days ?? Smith: na ?? Dispo: home vs rehab per PT ?? Follow up: as below Jani Beltre Orthopaedic Surgery #[id number] Future Appointments Date Time Provider Department Center 10/20/2016 9:[address] [facility] DX ROOM 6 [facility]ray [facility] 10/20/2016 10:00 AM Walter Rae MD [address] [facility] Associated attestation - Walter Rae MD - 09/22/2016 12:52 PM EDT Patient seen and examined on rounds. Agree with resident note. Walter Rae M.D. MS Department of Orthopaedics * Gloria Dsouza RN - 09/21/2016 10:15 PM EDT Pt. Received into Room 309 from PACU. See flowsheet for assessment. Oriented to room, call caldwell in reach. Bed alarm on. * Atul Gifford Jr., MD - 09/21/2016 9:13 PM EDT Post-op Check Patient Name: Gunnar Morin Patient Age: 71 y.o. Attending Physician: Walter Rae MD Gunnar Morin is a 71 y.o. male s/p Procedure(s): @TOTAL KNEE ARTHROPLASTY (WRVU 20.72) MODIFIER, ATTUNE CURVED FIXED PLATFORM, DEPUY S: Pt seen, examined and w/o complaints; denies f/c/n/v, chest pain, SOB. Pain well controlled on medications O: Last value Range last 24hrs Temperature Temp: 36.5 ??C (97.7 ??F) Temp: [36.5 ??C (97.7 ??F)-37 ??C (98.6 ??F)] Heart Rate Heart Rate: 82 Heart Rate: [67-82] Blood Pressure BP: 136/77 BP: (110-138)/(67-91) Respiratory Rate Resp: 18 Resp: [14-22] SpO2 SpO2: 96 % SpO2: [91 %-97 %] General: NAD, A/O x 3 HEENT: NC/AT, PERRL, EOMI CVS: RRR, no appreciable murmurs Pulm: CTAB, no w/r/r Abd: soft, NT/ND, benign Extremity: no c/c/e, pulses 2+ b/l, dressing clean/dry/intact Skin: Warm, Dry Neuro: CN 2-12 grossly intact, nonfocal Incision: Dressings c/d/i. No evidence of hematoma/seroma/infection No results for input(s): WBC, HGB, HCT, PLATELET, PT, INR, PTT in the last 72 hours. No results for input(s): NA, K, CL, CO2, BUN, CREATININE, GLUCOSE, CALCIUM, MAGNESIUM, PHOS in the last 72 hours. A/P: Gunnar Morin is a 71 y.o. male patient s/p above procedures currently in stable condition and recovering well after surgery. - Appropriate for floor - Pain well controlled - Hemodynamically stable, UOP adequate - Continue post-op plan Atul Gifford Jr, MD 09/21/2016 9:13 PM * Esteban Garza RN - 09/21/2016 9:12 PM EDT 2109 Resumed care from Nicolasa JENNINGS. Patient wide awake. No pain, VSS. 2144 Report to 3W RN Gloria. Info/orders reviewed, questions answered. Patient ready for transfer to 3 when transport arrives. documented in this encounter H&P Notes * Walter Rae MD - 09/21/2016 12:32 PM EDT The patient's history and physical exam have been reviewed and completed. There has been no interval change from that of the pre-operative history and physical exam done within the last 30 days. documented in this encounter Miscellaneous Notes * Plan of Care - Katie Izquierdo, PT - 09/22/2016 3:40 PM EDT Problem: Patient Care Overview Goal: Plan of Care Review Outcome: Ongoing (Interventions Implemented as Appropriate) 09/22/16 1540 Plan of Care Review Progress improving Physical Therapy Assessment Treatment Number: 1 Patient Profile: Pertinent History of Current Problem: sp R TKA on 09/21/16 Butch. H/O R ELZBIETA in june 2016 and L TKA a couple of years ago Social Hx/Premorbid level of function: see DOC flow sheet, in the Living Environment Sectiona Staff Mobility Recommendations/Present level of Function: Conditional indep S: No pain, ready to go home O: Pt seen for eval, TKA protocol exs, precautions, mobility and gait training w/ FWW WBAT RLE on level and up/down FOS w/ one crutch/railing A/P: Pt demonstrated good knowledge and correct performance of TKA exs w/ safe S> indep mobilityand gait on level and stairs. Safe for and he and are agreeable to DC to home today, , 24/10 w/ plan as outlined Please see the Rehab Evaluation Summaries section for detailed objective data and specifics of today???s session. . Please refer to the DC Recommendations and POC review above Anticipated Equipment Needs at Discharge: (pt has all needed DME) Anticipated Discharge Disposition: home with assist, home with home health (w/ out-pt PT to begin in ~ 2 weeks) KATIE IZQUIERDO, PT Pager: [phone] Inpatient Physical Therapy * Plan of Care - Lisa Roberts RN - 09/22/2016 9:43 AM EDT Problem: Patient Care Overview Goal: Plan of Care Review Outcome: Ongoing (Interventions Implemented as Appropriate) 09/22/16 0810 Coping/Psychosocial Plan Of Care Reviewed With patient OUTCOME EVALUATION NOTE: OUTCOME SUMMARY: Patient without complaints this am PLAN MOVING FORWARD: Assess mobility INDIVIDUALIZED FALL PREVENTION INTERVENTIONS: Patient-specific fall risk factors per assessment: [current deficits]: Recent surgery, gait impairment Assistance [level of assistance required for transfers and ambulation]: 1 assist with walker Supervision [direct monitoring required during toileting and ADLs]: Direct supervision Surveillance [continuous indirect monitoring]: edel Davila Patient-specific fall prevention interventions for sensory deficits provided, if applicable: NA CPG GOAL OUTCOME EVALUATION: * Brief Op Note - Walter Rae MD - 09/21/2016 3:40 PM EDT Brief Operative Note Patient Name: Gunnar Morin : [id number] MR#: [id number] Date of surgery: 09/21/2016 ?? Preoperative diagnosis: Right knee osteoarthritis ?? Postoperative diagnosis: Right knee osteoarthritis ?? Procedure: Right total knee arthroplasty [40249] ?? Anesthesia: Spinal ?? Surgeon: Walter Rae MD MS ?? Dryland Farmer: Dawson Beltre MD ?? Estimated blood loss: 150 cc ?? Fluids: 1000 cc ?? Urine output: Due to void ?? Drains: None ?? Tourniquet time: 81 minutes ?? Complications: None ?? Implants: All implants from [employer] knee system #1: Size 9 Femoral CR component #2: Size 7 tibial fixed component #3: Size 41 oval patella component #4: Size 9 x 5mm polyethylene insert #5: 2 batches of HV with antibiotics cement. ?? Findings: Stable TKA, Tricompartmental OA Disposition: aroused from sedation, and taken to the recovery room in a stable condition Condition: doing well without problems Infection Bundle used? N/A Attestation: Case Date: 09/21/2016 I was present and I participated during the entire procedure (does not need to include opening and closing). (Please see the Surgical Encounter Summary for any Implant and Specimen details pertinent to this patient.) * Op Note - Walter Rae MD - 09/21/2016 3:36 PM EDT [facility] Operative Note Patient Name: Gunnar Morin : [id number] MR#: [id number] Date of surgery: 09/21/2016 Preoperative diagnosis: Right knee osteoarthritis Postoperative diagnosis: Right knee osteoarthritis Procedure: Right total knee arthroplasty [78073] Anesthesia: Spinal Surgeon: Walter Rae MD MS Dryland Farmer: Dawson Beltre MD Estimated blood loss: 150 cc Fluids: 1000 cc Urine output: Due to void Drains: None Tourniquet time: 81 minutes Complications: None Implants: All implants from [employer] knee system #1: Size 9 Femoral CR component #2: Size 7 tibial fixed component #3: Size 41 oval patella component #4: Size 9 x 5mm polyethylene insert #5: 2 batches of HV with antibiotics cement. Findings: Stable TKA, Tricompartmental OA Indications for procedure: Patient is a 71-year-old male with right knee osteoarthritis. After exhausting conservative measures, the patient elected to proceed with total knee arthroplasty. The risksand benefits of this procedure were reviewed in depth and patient received medical clearance prior to procedure. Description of events: The patient was seen in the same day surgery area where informed consent was confirmed and the appropriate right lower extremity was marked with my initials. This was confirmed by the patient as the correct side. The patient was brought back to the operating room and placed on the operating room table in the supine position. A timeout was performed per policy identifying the correct side, patient identity, and procedure. Preoperative antibiotics were given prior to incision. A spinal anesthetic was provided by the anesthesia staff. The patient had nonsterile tourniquets placed about the upper thigh. The knee was prepped and draped in usual sterile fashion using ChloraPrep. TXA was given prior to incision. An incision was based over the patella. Sharp 10 blade was used to incise skin. Full-thickness medial and lateral flaps risen. A medial parapatellar quad splitting arthrotomy was performed. The anterior lateral aspect of this femur was cleared of soft tissue. Proximal medial tibial peel was taken to the mid coronal line. Patella fat pad was removed with protection of the patella tendon. The patella was then everted the knee was flexed up with careful attention to not put excess stress on the extensor mechanism. Attention was then turned to preparing the femur. The distal femur was entered in the appropriate position and the distal femoral cutting jig was placed to make an 10 mm distal cut with 6 degree valgus cut. Distal femoral cutting jig was pinned to place the distal femoral cut was made without complication. Attention was then turned to preparing our tibia. External tibial cutting jig was placed and the appropriate slope, position on tibia. 4 mm were taken off the more affected side. This was pinned intoplace and the proximal tibial cut was made without complication. This was removed and medial osteophytes were removed about the proximal tibia. Temporary sizing of the tibia was undertaken at this point. The extension space was then checked and found to be excellent. The 3 degrees external rotation sizing guide was placed and found to be a 9 size and was pinned in position. The 4-in-1 cutting block was then applied and anterior, posterior, chamfers cuts were made. Residual bone was removed and then osteophytes were removed. The flexion space was then checked and found to be excellent. A size 9 femoral trial, size 7 tibial tray, and size 5 mm polyethylene was placed and the knee was reduced and brought through a range of motion and found to be stable to both varus and valgus stressat both 0 degrees, 30 degrees, and 90 degrees of flexion. There was no lift off with flexion. The patella was then prepared using the patellar clamp with the appropriate resection. The patella was then sized for a size 41 patella. Lollipop was held in place and peg holes were drilled. Trial was placed and the knee was brought through range of motion and found to have excellent tracking. Implants were removed and the tibia was then pinned in the appropriate external rotation and the smoke stack and punch were performed. All components were removed the knee was copiously irrigated with normal saline. Components were opened and then inserted in the following fashion tibia, femur, polyethylene insert. The knee was brought to full extension and the patella button was placed with the patellar clamp. Cement was allowed to polymerize and then the tourniquet was let down at 81 minutes. Hemostasis was obtained with electrocautery. The knee was copiously irrigated with normal saline. Remaining cement was removed. A strata fix barbed suture was then used to close the arthrotomy. Afterclosure of the arthrotomy, the knee was flexed up and found to be watertight and tracking well. Knee flexion with arthrotomy closed was found to be 115??. The knee was once again copiously irrigated with normal saline and the subcutaneous used tissues were approximated with 0 and 2-0 Vicryl suturesin a buried interrupted fashion. Skin was closed with michoacano. The wound was washed and dried Mepilex dressing was applied The patient was awoken from anesthesia without combination. Transferred to the PACU in stable condition. At the end the case all sponge, needle counts were correct times 2 there are no immediate competitions known. Plan: Patient will be admitted and co-managed with the medical staff. Patient will be weight bearing as tolerated on the surgical extremity without precaution. Patient will use ASA DVT prophylaxis for 30 days. Dressing will remain in place for 7 days. Staple removal in 14 days. Patient will likely be discharged to home with VNA services or rehabilitation stay. Follow-up will be in 4 weeks for wound check and xrays, Staple removal at 14 days. Infection Bundle used? N/A Attestation: Case Date: 09/21/2016 I was present and I participated during the entire procedure (does not need to include opening and closing). Walter Rae MD 09/21/2016 * Initial Assessments - Zuly Almazan RN - 09/21/2016 9:04 AM EDT Office of Care Management Initial Assessment ? Source of Information:??Gunnar Morin Introduced self/reviewed role; services accepted. Informed patient that an inpatient rn progressive care will be working to expedite the discharge process and to direct questions to the assigned rn progressive care. = ? Reason for Hospitalization:??Primary OA of right knee. Right TKA on 09/21/16. ? Past??Medical??History No past medical history on file. ? Hospitalizations Within the Past 30 Days:??no ? Anticipated Length Of Stay??(If known):??1-3day ? Current Decision-Making Capacity:??He is capable of making [...] have a total knee arthroplasty here at [facility] in the past. ? Current Functional Ability:? Functional Status Prior to Admission:??He ambulates independently without an assistive device. ??Heis able to do his ADL without assistance. ??He drives. ??He is retired. ? Home Environment:??HE LIVES IN A 2 LEVEL HOUSE WITH 3 STEPS INTO THE HOUSE WITH A POST. THERE ARE 13 STEPS TO THE SECOND FLOOR WHERE THERE BEDROOM IS BUT THE BATHROOM IS ON THE SECOND FLOOR. HE TYPICALLY STAYS ON THE MAIN LEVEL AFTER SURGERY IN THE RECLINER. HE HAS A TUB SHOWER. ? Social & Family Supports/Community Resources:??His primary caregiver(s) is going to be Sussy -she recently had a total joint replacement as well. ? Behavioral Health History:??None ? Substance Use/Abuse:??None ? Other Pertinent/Service Specific Information:??no ? Health/Prescription Coverage: ?Primary Insurance:??Medicare A and B ?Secondary Insurance:??[place] ?Prescription Coverage:??BCBS Rx ?Preferred Pharmacy:??[facility] ?[address] ?[place] ?Phone:??[phone] ?Fax:??[phone] ?Other:??None ? Primary Care Provider:??Phoenix Guzmán DO??[phone] ? Patient/Caregiver Goals of Treatment:??He wants to be able to mow the lawn, cut the wood, play pickle ball, ride the 4 wheelers, etc. ? Potential Needs for Transition of Care:?Rehab/SNF:??No selection Home Health:? [facility] [address] [place] [address] ? Expected date of discharge: within 24 hrs ? Referral routed to the Forest Worker for matching with agency/vendor and to provide any required information. ?OP PT: La Verkin PT ?DME:??He has a 2- 2 FWW's, crutches, 2 canes, grabbers,sock assist, shoe horn, leg scrap crusher, shower chair, and commode. ?Dialysis:??No ?Community Resources:??None Transportation:?Other:??None ? Anticipated Barriers to Discharge/Special Considerations:??None ? Plan:??anticipate d/c with [facility] ? A member of the Care Management team will continue to monitor progress, follow for continuity of care and assist with transition of care planning. ? Zuly Almazan RN documented in this encounter Plan of Treatment Upcoming Encounters Date Type Department Care Team (Late st Contact Info) Description 10/31/2023 9:15 AM EDT Office Visit Dermatology at [facility] [address] [place] [address] Dawson Broderick MD [facility] [place] [address] 07/23/2024 9:30 AM EDT Office Visit Dermatology at [facility] [address] [place] [address] Dawson Broderick MD [facility] [place] [address] documented as of this encounter Procedures Procedure Name Priority Date/Time Associated Diagnosis Comments 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 SCAN 09/23/2016 12:00 AM EDT HEMOGRAM Routine 09/22/2016 3:46 AM EDT DIFFERENTIAL, AUTOMATED Routine 09/22/2016 3:46 AM EDT CBC (WITH DIFF) Routine 09/22/2016 3:46 AM EDT BASIC METABOLIC PANEL (NON-FASTING) Routine 09/22/2016 3:46 AM EDT MODIFIER, ATTUNE CURVED FIXED PLATFORM, DEPUY 09/21/2016 1:24 PM EDT Status post total replacement of right hip TOTAL KNEE ARTHROPLASTY (WRVU 19.6) 09/21/2016 1:24 PM EDT Status post total replacement of right hip documented in this encounter Results * SCAN DOC: 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 (09/23/2016 12:00 AM EDT) Anatomical Region Laterality Modality Other Narrative 09/23/2016 12:00 AM EDT Ordered by an unspecified provider. Scanning Provider MEDIA MGR SCAN EXT O RDR/RSLT * (ABNORMAL) Differential, Automated (09/22/2016 3:46 AM EDT) Neutrophils % 81.2 % [facility] Neutr Abs (ANC) 9.05(H) 1.70 - 6.10 x10(3)/[facility] Lymphocytes % 9.1 % [facility] Lymphocytes Abs 1.0 0.9 - 3.2 x10(3)/[facility] Monocytes % 9.2 % [facility] Monocyte Abs 1.0(H) 0.3 - 0.9 x10(3)/[facility] Eosinophils % 0.0 % [facility] Eosinophils Abs 0.0 0.0 - 0.4 x10(3)/[facility] Basophils % 0.1 % [facility] Basophils Abs 0.0 0.0 - 0.1 x10(3)/[facility] Immature Gran % 0.40 % [facility] Comment: Immature granulocytes(IG's)percentage and absolute count will include metamyelocytes, myelocytes, and promyelocytes. Blood smears from CBCs yielding IG's will be scanned manually for concordance. If this scan disagrees with the automated IG or if promyelocytes are noted, a manual differential will be performed. [place] Gran Abs 0.05(H) 0.00 - 0.04 x10(3)/[facility] Blood specimen (specimen) 09/22/2016 3:46 AM EDT 09/22/2016 4:13 AM EDT Narrative Resulting Agency Comment Spec In Lab Walter Rae MD HEMATOLOGY ORDERABLE S Performing Organization Address City/State/[facility] Co de Phone Number [facility] [place] [address] * (ABNORMAL) Hemogram (09/22/2016 3:46 AM EDT) WBC 11.2(H) 4.0 - 9.5 x10(3)/[facility] LAB[facility] RBC 3.97(L) 4.58 - 5.54 x10(6)/[facility] Hemoglobin 12.9(L) 13.7 - 16.5 gm/dL [facility] Hematocrit 37.1(L) 40.5 - 48.5 % [facility] MCV 93.5(H) 82.9 - 93.1 fL [facility] MCH 32.5(H) 27.5 - 32.1 pg [facility] MCHC 34.8 32.0 - 35.7 gm/dL [facility] Platelets 218 145 - 357 x10(3)/[facility] RDWSD 43.9 36.0 - 45.0 [facility] RDWCV 12.7 11.4 - 13.8 % [facility] MPV 9.9 7.6 - 12.9 [facility] nRBC % Auto 0.0 % [facility] nRBC Abs Auto 0.000 0.000 - 0.000 x10(3)/[facility] Blood specimen (specimen) 09/22/2016 3:46 AM EDT 09/22/2016 4:13 AM EDT Narrative Resulting Agency Comment Spec In Lab Walter Rae MD HEMATOLOGY ORDERABLE S [facility] [place] [address] * Basic Metabolic Panel (non-fasting) (09/22/2016 3:46 AM EDT) Glucose Lvl 140 65 - 199 mg/dL [facility] Comment:Diabetes: >=200 mg/d L plus symptoms BUN 19 10 - 20 mg/dL [facility] Creatinine 1.20 0.80 - 1.50 mg/dL [facility] Comment: Please note that the pediatric reference intervals supplied above were not validated at [facility]. Results from pediatric patients should be interpreted in conjunction to the patient's age, height and muscle mass. Sodium 137 135 - 145 mmol/L [facility] Potassium 4.7 3.5 - 5.0 mmol/L [facility] Comment: Please note: ??Patients with WBC >100,000 may have falsely elevated Potassium levels. ??For accurate Potassium quantification in these patients send serum separator tube (gold top) for subsequent determinations. ??Contact the Clinical Chemistry Laboratory if there are any questions. Chloride 100 98 - 107 mmol/L [facility] CO2 24 22 - 31 mmol/L [facility] Anion Gap 13 5 - 15 mmol/L [facility] Calcium 8.6 8.5 - 10.5 mg/dL [facility] Estimated GFR 60 >=60 [facility] Comment: This estimated GFR (eGFR) value was calculated using the MDRD equation which has been validated on patients between the ages of 18 and 70. The MDRD should not be used to assess kidney function in patients < 18 years of age or in patients with extremes of body mass, or in patients with acute kidney failure. This value should be multiplied by 1.2 for patients. For further information please copy and paste the following links into your internet browser. http://Curbside/DHnkdep [email or web address]://Curbside/DHMCnkf Blood specimen (specimen) 09/22/2016 3:46 AM EDT 09/22/2016 4:13 AM EDT Narrative Resulting Agency Comment Spec In Lab Walter Rae MD CHEMISTRY ORDERABLES [facility] [place] [address] documented in this encounter Visit Diagnoses Diagnosis sp R TKA on 09/21/16 Butch- Primary Osteoarthrosis, unspecified whether generalized or localized, lower leg Status post total replacement of right hip documented in this encounter Admitting Diagnoses Diagnosis Osteoarthritis of right knee Osteoarthrosis, unspecified whether generalized or localized, lower leg documented in this encounter Administered Medications Inactive Administered Medications - up to 3 most recent administrations Medication Order MAR Action Action Date Dose Rate Site acetaminophen (TYLENOL) tablet 1,000 mg 1,000 mg, Oral, ONCE, 1 dose, On Mon09/21/16 at 1200, Administer on arrival in Same Day Program, Day of Surgery (Day of Procedure), Routine Given 09/21/2016 12:16 PM EDT 1,000 mg acetaminophen (TYLENOL) tablet 1,000 mg 1,000 mg, Oral, EVERY 8 HOURS SCHEDULED, First dose on Mon09/21/16 at 1600, Until Discontinued, Maximum dose of acetaminophen is 4000 mg from all sources in 24 hours., Routine Given 09/22/2016 11:30 AM EDT 1,000 mg Given 09/22/2016 3:51 AM EDT 1,000 mg Given 09/21/2016 7:33 PM EDT 1,000 mg aspirin EC tablet 81 mg 81 mg, Oral, 2 TIMES DAILY, First dose on Mon09/21/16 at 2100, Until Discontinued, Routine Given 09/22/2016 8:10 AM EDT 81 mg Given 09/21/2016 9:19 PM EDT 81 mg carvedilol (COREG) tablet 12.5 mg 12.5 mg, Oral, 2 TIMES DAILY WITH MEALS, First dose on Mon09/21/16 at 2245, Until Discontinued, Hold coreg if SBP<100 or HR<50, STAT Given 09/22/2016 8:10 AM EDT 12.5 mg Given 09/21/2016 10:51 PM EDT 12.5 mg ceFAZolin (ANCEF) 1g in dextrose 5% 50mL 1,000 mg (1 g), Intravenous, EVERY 8 HOURS, 3 doses, First dose on Mon09/21/16 at 1600, Last dose on Mon09/22/16 at 1000, Administer over 30 Minutes, Adjust to 4 hours from intraoperative dose. * Beta-lactam based antibiotics (eg. Ampicillin, Cefazolin, Aztreonam) should be administered within 4 hours of the preceding intraoperative dose. * Vancomycin, Flouroquinolones, Clindamycin, Gentamicin, and Metronidazole should be administered within 8 hours of the preceding intraoperative dose., Recovery (Recovery-Hospital Unit), Indication for (Active or Suspected): Prophylaxis Given 09/22/2016 10:02 AM EDT 1,000 mg 100 mL /hr Given 09/22/2016 2:29 AM EDT 1,000 mg 100 mL/hr Given 09/21/2016 5:40 PM EDT 1,000 mg 100 mL/hr celecoxib (CeleBREX) capsule 200 mg 200 mg, Oral, 2 TIMES DAILY, First dose on Mon09/21/16 at 2100, Until Discontinued, Routine Given 09/22/2016 8:10 AM EDT 200 mg Given 09/21/2016 10:51 PM EDT 200 mg celecoxib (CeleBREX) capsule 400 mg 400 mg, Oral, ONCE, 1 dose, On Mon09/21/16 at 1200, Administer on arrival to Same Day Program, Day of Surgery (Day of Procedure), Routine Given 09/21/2016 12:16 PM EDT 400 mg gabapentin (NEURONTIN) capsule 300 mg 300 mg, Oral, ONCE, 1 dose, On Mon09/21/16 at 1200, Administer on arrival in Same Day Program, Day of Surgery (Day of Procedure), Routine Given 09/21/2016 12:16 PM EDT 300 mg gabapentin (NEURONTIN) capsule 300 mg 300 mg, Oral, NIGHTLY, First dose on Mon09/23/16 at 2100, Until Discontinued, Routine gabapentin (NEURONTIN) capsule 600 mg 600 mg, Oral, NIGHTLY, 2 doses, First dose on Mon09/21/16 at 2100, Last dose on Mon09/22/16 at 2100, Routine Given 09/21/2016 9:19 PM EDT 600 mg ketorolac (TORADOL) injection 15 mg 15 mg, Intravenous, EVERY 6 HOURS SCHEDULED, 4 doses, First dose on Mon09/21/16 at 1600, Last dose on Mon09/22/16 at 0900, Routine Given 09/22/2016 8:11 AM EDT 15 mg Given 09/22/2016 2:33 AM EDT 15 mg Given 09/21/2016 10:51 PM EDT 15 mg multivitamin Npyr-Wd-GS-Min (THERAPEUTIC-M) 27-0.4 mg tablet 1 tablet 1 tablet, Oral, DAILY, First dose on Mon09/22/16 at 0900, Until Discontinued Given 09/22/2016 8:10 AM EDT 1 tablet pantoprazole (PROTONIX) tablet 20 mg 20 mg, Oral, DAILY, First dose on Mon09/21/16 at 2245, Until Discontinued, DO NOT CRUSH OR OPEN Given 09/21/2016 10:51 PM EDT 20 mg polyethylene glycol (MIRALAX) packet 17 g 17 g, Oral, 2 TIMES DAILY, First dose on Mon09/21/16 at 2300, Until Discontinued, Routine Given 09/22/2016 8:11 AM EDT 17 g Given 09/21/2016 10:52 PM EDT 17 g senna-docusate (PERICOLACE) 8.6-50 mg per tablet 2 tablet 2 tablet, Oral, 2 TIMES DAILY, First dose on Mon09/21/16 at 2300, Until Discontinued, Routine Given 09/22/2016 8:11 AM EDT 2 tablets Given 09/21/2016 10:51 PM EDT 2 tablets simvastatin (ZOCOR) tablet 20 mg 20 mg, Oral, EVERY EVENING, First dose on Mon09/21/16 at 2245, Until Discontinued, STAT Given 09/21/2016 10:51 PM EDT 2 0 mg sodium chloride 0.9 % flush 5 mL 5 mL, Intravenous, 2 TIMES DAILY, First dose on Mon09/21/16 at 2100, Until Discontinued, Recovery (Recovery-Hospital Unit), Routine Given 09/22/2016 8:11 AM EDT 5 mLs Given 09/21/2016 9:23 PM EDT 5 mLs sodium chloride 0.9% infusion 1,000 mL, at 100 mL/hr, Intravenous, CONTINUOUS, Starting on Mon09/21/16 at 1600, Until Mon09/22/16 at 1806, Recovery (Recovery-Hospital Unit) New Bag 09/21/2016 4:20 PM EDT 1,000 mLs 100 mL/hr documented in this encounter Active and Recently Administered Medications Times are shown in EDT. Scheduled Medication Order 09/20/2016 09/21/2016 09/22/2016 acetaminophen (TYLENOL) tablet 1,000 mg (COMPLETED) 1,000 mg, Oral, ONCE, 1 dose, On Mon09/21/16 at 1200, Administer on arrival in Same Day Program, Day of Surgery (Day of Procedure), Routine 1216 (Given - Provider: Emma Weiner RN) acetaminophen (TYLENOL) tablet 1,000 mg 1,000 mg, Oral, EVERY 8 HOURS SCHEDULED, First dose on Mon09/21/16 at 1600, Until Discontinued, Maximum dose of acetaminophen is 4000 mg from all sources in 24 hours., Routine 1933 (Given - Provider: Esteban Garza RN) 0351 (Given - Provider: Gloria Dsouza RN)1130 (Given - Provider: Lisa Roberts, MICHAELA) aspirin EC tablet 81 mg 81 mg, Oral, 2 TIMES DAILY, First dose on Mon09/21/16 at 2100, Until Discontinued, Routine 211 (Given - Provider: Esteban Garza RN) 0810 (Given - Provider: Lisa Roberts, MICHAELA) carvedilol (COREG) tablet 12.5 mg 12.5 mg, Oral, 2 TIMES DAILY WITH MEALS, First dose on Mon09/21/16 at 2245, Until Discontinued, Hold coreg if SBP<100 or HR<50, STAT 2251 (Given - Provider: Dionna Denney RN) 0810 (Given - Provider: Lisa Roberts, MICHAELA) ceFAZolin (ANCEF) 1g in dextrose 5% 50mL (COMPLETED) 1,000 mg (1 g), Intravenous, EVERY 8 HOURS, 3 doses, First dose on Mon09/21/16 at 1600, Last dose on Yara 09/22/16 at 1000, Administer over 30 Minutes, Adjust to 4 hours from intraoperative dose. * Beta-lactam based antibiotics (eg. Ampicillin, Cefazolin, Aztreonam) should be administered within 4 hours of the preceding intraoperative dose. * Vancomycin, Flouroquinolones, Clindamycin, Gentamicin, and Metronidazole should be administered within 8 hours of the preceding intraoperative dose., Recovery (Recovery-Hospital Unit), Indication for (Active or Suspected): Prophylaxis 1739 (Given - Provider: Ashanti H Beltre - Comment: OR dose given at 1341) 022 (Given - Provider: Gloria Dsouza, RN)1002 (Given - Provider: Lisa Roberts, MICHAELA)1105 (IV Stop - Provider: Lisa Roberts RN) celecoxib (CeleBREX) capsule 200 mg 200 mg, Oral, 2 TIMES DAILY, First dose on Mon09/21/16 at 2100, Until Discontinued, Routine 2250 (Given - Provider: Dionna Denney RN) 0810 (Given - Provider: Lisa Roberts RN) celecoxib (CeleBREX) capsule 400 mg (COMPLETED) 400 mg, Oral, ONCE, 1 dose, On Mon09/21/16 at 1200, Administer on arrival to Same Day Program, Day of Surgery (Day of Procedure), Routine 121 (Given - Provider: Emma Weiner RN) gabapentin (NEURONTIN) capsule 300 mg (COMPLETED) 300 mg, Oral, ONCE, 1 dose, On Mon09/21/16 at 1200, Administer on arrival in Same Day Program, Day of Surgery (Day of Procedure), Routine 121 (Given - Provider: Emma Weiner RN) gabapentin (NEURONTIN) capsule 300 mg(Linked Group 1) 300 mg, Oral, NIGHTLY, First dose on Mon09/23/16 at 2100, Until Discontinued, Routine gabapentin (NEURONTIN) capsule 600 mg(Linked Group 1) 600 mg, Oral, NIGHTLY, 2 doses, First dose on Mon09/21/16 at 2100, Last dose on Mon09/22/16 at 2100, Routine 2118 (Given - Provider: Esteban Garza RN) ketorolac (TORADOL) injection 15 mg 15 mg, Intravenous, EVERY 6 HOURS SCHEDULED, 4 doses, First dose on Mon09/21/16 at 1600, Last dose on Mon09/22/16 at 0900, Routine 1715 (Not Given - Provider: Esteban Garza RN - Reason: Contraindicated)2250 (Given - Provider: Dionna Denney RN) 023 (Given - Provider: Gloria Dsouza RN)0811 (Given - Provider: Lisa Roberts RN) multivitamin Gdwy-Oz-QA-Min (THERAPEUTIC-M) 27-0.4 mg tablet 1 tablet 1 tablet, Oral, DAILY, First dose on Yara 09/22/16 at 0900, Until Discontinued 0810 (Given - Provid er: Lisa Roberts RN) pantoprazole (PROTONIX) tablet 20 mg 20 mg, Oral, DAILY, First dose on Mon09/21/16 at 2245, Until Discontinued, DO NOT CRUSH OR OPEN 2251 (Given - Provider: Dionna Denney RN) polyethylene glycol (MIRALAX) packet 17 g 17 g, Oral, 2 TIMES DAILY, First dose on Mon09/21/16 at 2300, Until Discontinued, Routine 2252 (Given - Provider: Dionna Denney RN) 0811 (Given - Provider: Lisa Roberts RN) senna-docusate (PERICOLACE) 8.6-50 mg per tablet 2 tablet 2 tablet, Oral, 2 TIMES DAILY, First dose on Mon09/21/16 at 2300, Until Discontinued, Routine 225 (Given - Provider: Dinona Denney RN) 0811 (Given - Provider: Lisa Roberts RN) simvastatin (ZOCOR) tablet 20 mg 20 mg, Oral, EVERY EVENING, First dose on Mon09/21/16 at 2245, Until Discontinued, STAT 2251 (Given - Provider: Dionna Denney RN) sodium chloride 0.9 % flush 5 mL 5 mL, Intravenous, 2 TIMES DAILY, First dose on Mon09/21/16 at 2100, Until Discontinued, Recovery (Recovery-Hospital Unit), Routine 212 (Given - Provider: Esteban Garza RN) 0811 (Given - Provider: Lisa Roberts RN) Continuous Medication Order 09/20/2016 09/21/2016 09/22/2016 lactated Ringers infusion 1,000 mL (CANCELED) 1,000 mL, at 100 mL/hr, Intravenous, CONTINUOUS, Starting on Mon09/21/16 at 1200, Until Mon09/21/16 at 1955, Day of Surgery (Day of Procedure) 1315 (New Bag - Provider: Lenin Rasmussen CRNA)1413 (Anesthesia Volume Adjustment - Provider: Lenin Rasmussen CRNA)1430 (Anesthesia Volume Adjustment - Provider: Lenin Rasmussen CRNA)1521 (New Bag - Provider: Roverto Talamantes CRNA) sodium chloride 0.9% infusion 1,000 mL, at 100 mL/hr, Intravenous, CONTINUOUS, Starting on Mon09/21/16 at 1600, Until Yara 09/22/16 at 1806, Recovery (Recovery-Hospital Unit) 1620 (New Bag - Provider: Ashanti Beltre) 1130 (Stopped - Provider: Lisa Roberts RN) PRN Medication Order 09/20/2016 09/21/2016 09/22/2016 bisacodyl (DULCOLAX) EC tablet 10 mg 10 mg, Oral, 2 TIMES DAILY PRN, Starting on Mon09/21/16 at 1955, Until Yara 09/22/16 at 1806, Constipation, DO NOT CRUSH OR OPEN Administer if needed per patient's routine or if no bowel movement within 48 hours to achieve: 1) One bowel movement at least every 48 hours, AND 2) Without straining. If multiple bowel medications ordered, consider adding bisacodyl if polyethylene glycol (MIRALAX), docusate/senna, or lactulose not sufficient., Routine bisacodyl (DULCOLAX) suppository 10 mg 10 mg, Rectal, DAILY PRN, Starting on Mon09/21/16 at 1955, Until Yara 09/22/16 at 1806, Constipation, Administer if needed per patient's routine or if no bowel movement within 48 hours to achieve: 1) One bowel movement at least every 48 hours, AND 2) Without straining. If multiple bowel medications ordered, consider adding bisacodyl if polyethylene glycol (MIRALAX), docusate/senna, or lactulose not sufficient. If patient unable to take PO, may give LA if ordered, Routine BUpivacaine-EPINEPHrine 0.25 %-1:200,000 injection (CANCELED) ONCE PRN, Starting on Mon09/21/16 at 1441, Until Yara 09/22/16 at 1806, Intra-Operative (Intra-Procedure), Routine 1441 (Given - Provider: Walter Rae MD - Comment: 50 ml 0.25% Marcaine with 1:200,000 Epi mixed with 50 mcg Clonidine and 30 mg Ketorolac. Of this mixture, 30 ml was used.) cloNIDine injection (CANCELED) ONCE PRN, Starting on Mon09/21/16 at 1442, Until Yara 09/22/16 at 1806, Intra-Operative (Intra-Procedure), Routine 1442 (Given - Provider: Walter Rae MD - Comment: 50 ml 0.25% Marcaine with 1:200,000 Epi mixed with 50 mcg Clonidine and 30 mg Ketorolac. Of this mixture, 30 ml was used.) ketorolac (TORADOL) injection (CANCELED) ONCE PRN, Starting on Mon09/21/16 at 1442, Until Yara 09/22/16 at 1806, Intra-Operative (Intra-Procedure), Routine 1442 (Given - Provider: Walter Rae MD - Comment: 50 ml 0.25% Marcaine with 1:200,000 Epi mixed with 50 mcg Clonidine and 30 mg Ketorolac. Of this mixture, 30 ml was used.) lactulose (CHRONULAC) 20 gram/30 mL oral solution 20-40 g 20-40 g (30-60 mL), Oral, DAILY PRN, Starting on Mon09/21/16 at 1955, Until Yara 09/22/16 at 1806, Constipation, Administer if needed per patient's routine or if no bowel movement within 48 hours. Start with 30 mL orally to achieve: 1) One bowel movement at least every 48 hours, AND 2) Without straining. If no bowel movement within 24 hours, may increase to 60 mL orally once daily PRN. If multiple bowel medications ordered, consider adding lactulose first or if polyethylene glycol (MIRALAX) or docusate/senna not sufficient., Routine lidocaine (XYLOCAINE) 10 mg/mL (1 %) injection 3 mg 3 mg (0.3 mL), Subcutaneous, ONCE PRN, 1 dose, Starting on Mon09/21/16 at 1540, Until Yara 09/22/16 at 1806, for discomfort with PIV insertion, Recovery (Recovery-Hospital Unit), Routine midazolam (PF) (VERSED) 1 mg/mL injection 1 mg (CANCELED) 1 mg, Intravenous, EVERY 5 MIN PRN, Starting on Mon09/21/16 at 1133, Until Mon09/21/16 at 1537, Sleep, or prior to injection of local anesthetic, Hold for delirium/agitation. (Maximum dose 5 mg)., Day of Surgery (Day of Procedure), Routine 1318 (Given - Provider: Lenin Rasmussen CRNA)1327 (Given - Provider: Lenin Rasumssen CRNA) ondansetron (ZOFRAN) injection 4 mg (CANCELED) 4 mg, Intravenous, EVERY 30 MIN PRN, Starting on Mon09/21/16 at 1537, Until Mon09/21/16 at 1955, Nausea, May repeat 4 mg once in 30 minutes. If multiple antiemetics ordered, use ondansetron first and if ineffective use prochlorperazine second and if ineffective use promethazine, PACU Recovery 1536 (Given - Provider: Lenin Rasmussen CRNA) oxyCODONE (ROXICODONE) immediate release tablet 5-15 mg 5-15 mg, Oral, EVERY 4 HOURS PRN, Starting on Mon09/21/16 at 1543, Until Yara 09/22/16 at 1806, Pain, Give 5 mg for mild pain (1-3), 10 mg for moderate pain (4-6) or 15 mg for severe pain (7-10) May give an additional 5 mg in 30 minutes ONCE if pain not relieved., Routine sodium chloride 0.9 % flush 5-20 mL 5-20 mL, Intravenous, EVERY 1 MIN PRN, Starting on Mon09/21/16 at 1540, Until Yara 09/22/16 at 1806, flush, Flush pertains to all indwelling lines. Flush per protocol found in the job aid using the link provided on this medication record., Recovery (Recovery-Hospital Unit), Routine Linked Groups Order Group 1: gabapentin (NEURONTIN) capsule 600 mgJump to med 600 mg, Oral, NIGHTLY, 2 doses, First dose on Mon09/21/16 at 2100, Last dose on Yara 09/22/16 at 2100, Routine Followed by gabapentin (NEURONTIN) capsule 300 mgJump to med 300 mg, Oral, NIGHTLY, First dose on Mon09/23/16 at 2100, Until Discontinued, Routine documented in this encounter Care Teams Clinical Coder Relationship Specialty Start Date End Date Phoenix Guzmán DO [address] [place] [address] [place] [phone] PCP - General General Internal Medicine 02/20/15 documented as of this encounter
--- OUTSIDE RECORDS SUMMARY | 2023-10-23 09:07 | XMS_ITS | Encounter Summary ---
Author Organization Formerly [facility] [place] [id number] Care Team Providers Care Fig Washer Name Role Phone DevantePhoenix orozco Susan MCDOWELL Primary Care Provider Reason for Referral * Consultation (Routine) - Closed Specialty Diagnoses / Procedures Referred By Omid shepherd Referred To Contact General Surgery Diagnoses Malignant melanoma of skin of penis Nathalia Tobin MD [facility] DR [address] [place] [address] Carina Patton MD [facility] [place] [address] Referral ID Status Reason Start Date Expiration Date V isits Requested Visits Authorized [id number] Closed Consult, Test & Treat 12/12/2016 12/12/2017 1 1 Encounter Details Date Type Department Care Team (Late st Contact Info) Description 12/12/2016 Orders Only Dermatology at [facility] [address] [place] [address] Nathalia Toibn MD [facility] DR [address] [place] [address] Malignant melanoma of skin of penis (Primary Dx) Social History Tobacco Use Types [...] 9:15 AM EDT Office Visit Dermatology at [facility] [address] [place] [phone] Dawson Broderick MD [facility] [place] [address] 07/23/2024 9:30 AM EDT Office Visit Dermatology at [facility] [address] [place] [address] Dawson Broderick MD [facility] [place] [address] Scheduled Referrals Name Type Priority Associated Diagnoses Orde r Schedule Referral to Surgical Oncology Outpatient Referral Routine Malignant melanoma of skin of penis Ordered: 12/12/2016 documented as of this encounter Visit Diagnoses Diagnosis Malignant melanoma of skin of penis- Primary Malignant neoplasm of penis, part unspecified documented in this encounter Care Teams Fig Washer Relationship Specialty Start Date End Date Phoenix Guzmán DO [address] [place] [address] [place] [phone] PCP - General General Internal Medicine 02/20/15 documented as of this encounter
--- OUTSIDE RECORDS SUMMARY | 2023-10-23 09:07 | XMS_ITS | Encounter Summary ---
[place] [address] Care Team Providers Care Fiscal Services Manager Name Role Phone Phoenix Guzmán DO Primary Care Provider [phone] Encounter Details Date Type Department Care Team (Latest Contact Info) Description 08/23/2016 9:00 AM EDT Clinical [place] [phone] Status post total replacement of right hip [...] Taken Comments Blood Pressure - - Pulse 80 08/23/2016 8:41 AM EDT Temperature - - Respiratory Rate - - Oxygen Saturation 96% 08/23/2016 8:41 AM EDT Inhaled Oxygen Concentration - - Weight 132 kg (291 lb) 08/23/2016 8:41 AM EDT Height 182.9 cm (6') 08/23/2016 8:41 AM EDT Body Mass Index 39.47 08/23/2016 8:41 AM EDT documented in this encounter Progress Notes * Luis Angel Dangelo RN - 08/23/2016 9:00 AM EDT PAT questionnaire reviewed with patient while in Pre Admission testing. Patient has had many procedures here and tolerated anesthesia well. Pre-operative instruction booklet reviewed. Patient verbalizes a good understanding of all information. PLAN Testing: Blood work, T&S, EKG done today. Special medication instructions: none Procedure date: 09-21-16 documented in this encounter Plan of Treatment Upcoming Encounters Date Type Department Care Team (Late st Contact Info) Description 10/31/2023 9:15 AM EDT Office Visit Dermatology at [facility] [address] [place] [address] Dawson Broderick MD [facility] [place] [address] 07/23/2024 9:30 AM EDT Office Visit [facility] [address] [place] [address] Dawson Broderick MD [facility] [place] [address] documented as of this encounter Procedures Procedure Name Priority Date/Time Associated Diagnosis Comments EKG 12-LEAD Routine 08/23/2016 9:29 AM EDT Status post total replacement of right hip documented in this encounter Results * EKG 12 Lead (08/23/2016 9:29 AM EDT) Ventricular rate 69 BPM MUSE SYSTEM Atrial Rate 69 BPM MUSE SYSTEM P-R Interval 180 ms MUSE SYSTEM QRS Duration 102 ms MUSE SYSTEM Q-T Interval 386 ms MUSE SYSTEM QTC Calculated (Bezet) 413 ms MUSE SYSTEM Calculated P Garber 25 degrees MUSE SYSTEM Calculated R Garber 32 degrees MUSE SYSTEM Calculated T Garber -7 degrees MUSE SYSTEM INTERPRETATION Normal sinus rhythm Normal ECG When compared with ECG of 28-APR-2016 13:08, No significant change was found Confirmed by MD Mark, Lasha ([id number]) on 08/24/2016 7:23:28 AM MUSE SYSTEM 08/23/2016 9:29 AM EDT 08/24/2016 7:23 AM EDT Walter Rae MD ECG ORDERABLES MUSE SYSTEM documented in this encounter Visit Diagnoses Diagnosis Status post total replacement of right hip documented in this encounter Care Teams Fiscal Services Manager Relationship Specialty Start Date End Date Phoenix Guzmán DO [address] [place] [address] JOHN Laboy [phone] PCP - General General Internal Medicine 02/20/15 documented as of this encounter
--- OUTSIDE RECORDS SUMMARY | 2023-10-23 09:07 | XMS_ITS | Encounter Summary ---
Author Organization Formerly [facility] [place] [address] Care Team Providers Care Brake Drum Molder Name Role Phone DevantePhoenix orozco Susan MCDOWELL Primary Care Provider [phone] Reason for Visit * Auth/Cert Specialty Diagnoses [...] Expiration Date Visits Re quested Visits Authorized [id number] 1 1 Encounter Details Date Type Department Care Team (Late st Contact Info) Description 01/19/2017 11:38 AM EDT - 01/19/2017 5:49 PM EDT Hospital Encounter Outpatient [place] [phone] Carina Ramos MD [facility] [place] [address] Discharge Disposition: Home Social History Tobacco Use [...] Sign Reading Time Taken Comments Blood Pressure 111/50 01/19/2017 4:50 PM EDT Pulse 76 01/19/2017 4:50 PM EDT Temperature 36.6 ??C (97.9 ??F) 01/19/2017 4:42 PM ED T Respiratory Rate 12 01/19/2017 4:50 PM EDT Oxygen Saturation 97% 01/19/2017 5:08 PM EDT Inhaled Oxygen Concentration - - Weight 127 kg (280 lb) 01/19/2017 12:24 PM EDT Height 182.9 cm (6') 01/19/2017 12:24 PM EDT Body Mass Index 37.97 01/19/2017 12:24 PM EDT documented in this encounter Discharge Instructions * Discharge Instructions* Nela Castro RN - 01/19/2017 4:52 PM EDT [...] closest emergency room or call the hospital chlorine cells operator at [phone] and ask for physician regional service manager covering for your physician. Questions or problems after 5pm or on a weekend: Call the [facility] chlorine cells operator at and ask for the physician regional service manager covering for your doctor. * Patient Instructions* [...] Dr. Ramos in 2-3 weeks Please call [phone] to confirm date and time of your appointment if you do not hear from us inthe week. Future Appointments Date Time Provider Department Center 02/03/2017 8:30 AM Carina Ramos MD [facility] CLIN Call Doctor for: Worsening redness or drainage from your incision lasting longer than 5 days following surgery Any foul-smelling drainage from the incision Fevers greater than 101 degrees F Persistent nausea or vomiting (this may be related to opioid pain medications) Phone number for questions: [phone] before 5 PM weekdays [phone] after 5 PM and on weekends/holidays documented [...] 30.28) performed by Walter Rae MD at [facility] MAIN OR ??? PRO TOTAL KNEE ARTHROPLASTY Left 09/07/2015 ?? @TOTAL KNEE ARTHROPLASTY performed by Walter Rae MD at [facility] OR ??? PRO TOTAL KNEE ARTHROPLASTY Right 09/21/2016 ?? @TOTAL KNEE ARTHROPLASTY (WRVU 20.72) performed by Walter Rae MD at [facility] MAIN OR ? Review of [...] up Q3-6 months skin exams ?? Carina Ramos MD Surgical Oncology documented in this encounter Miscellaneous Notes * Op Note - Carina Ramos MD - 01/19/2017 4:37 PM EDT [facility] [place] Note Patient Name: Gunnar Morin : [id number] MR#: [id number] Case Date: 01/19/2017 Surgeon: Surgeon(s) and Role: [...] performed pursuant to and in compliance with [facility] operative policies. He was positioned supine. His [...] Operative Note Patient Name: Gunnar Morin : [id number] MR#: [id number] Case Date: 01/19/2017 Surgeon: Surgeon(s) and Role: [...] [facility] [address] [place] [address] Dawson Broderick MD [facility] [place] [address] 07/23/2024 9:30 AM EDT Office Visit Dermatology at [facility] [address] [place] [address] Dawson Broderick MD [facility] [place] [address] documented as of this encounter Procedures Procedure [...] 4:22 PM EDT 01/19/2017 4:22 PM EDT Narrative [facility] - 01/19/2017 4:22 PM EDT Specimen requisition ordered. ??Separate Pathology report to follow Carina Lira MD PATHOLOGY/CYTOLO GY ORDERABLES Performing Organization Address [facility]/ZIP Co [place] [address] * Specimen to Pathology (surgical or derm) (01/19/2017 4:12 PM EDT) AP Specimen 01/19/2017 4:12 PM EDT 01/19/2017 4:12 PM EDT Narrative [facility] - 01/19/2017 4:12 PM EDT Specimen requisition ordered. ??Separate Pathology report to follow Carina Lira MD PATHOLOGY/CYTOLO GY ORDERABLES Performing Organization Address City/[facility]/ZIP Co de Phone Number [facility] [place] [address] * Specimen to Pathology (surgical or derm) (01/19/2017 4:11 PM EDT) AP Specimen 01/19/2017 4:11 PM EDT 01/19/2017 4:11 PM EDT Narrative [facility] - 01/19/2017 4:11 PM EDT Specimen requisition ordered. ??Separate Pathology report to follow Carina Lira MD PATHOLOGY/CYTOLO GY ORDERABLES Performing Organization Address City/[facility]/ZIP Co de Phone Number [facility] [place] [address] * Surgical Pathology Report (01/19/2017 3:50 PM EDT) FINAL DIAGNOSIS (AP) [id number] ? Location: [facility] The signing pathologist has (i) examined the relevant preparation(s) for the specimen(s) and (ii) rendered or confirmed the diagnosis(es). . ?Surgical Pathology DIAGNOSIS A. Left inguinal sentinel node #1, excision: - One lymph node, negative for metastatic melanoma (0/1). B. Right inguinal Hodges node #1, excision: - One lymph node, negative for metastatic melanoma (0/1, see discussion). C. Right inguinal sentinel node #3, excision: - One lymph node, negative for metastatic melanoma (0/1, see discussion). D. Right inguinal sentinel node #2 ??, excision: - ??Two lymph nodes, negative for metastatic melanoma (0/2). Electronically signed by: ??Cassy Triana MD Verified: ??01/29/2017 ?Dermatopathologist Performed at: ??-[facility] [place]. [place], [place], [place] DISCUSSION B, C. ??Rare weakly Melan-A positive small cell are seen in the lymph node parenchyma. The significance of this finding has not been defined. The cytologic features are not diagnostic of melanoma, and no melanoma cells are identified on H ?&E stained sections. This case was also reviewed by an additional intradepartmental dermatopathologist for consensus diagnosis. Patient 's prior biopsy slides ([id number]) were reviewed. ADDITIONAL STUDIES Immunohistochemistry Studies: Formalin-fixed, [...] sentinel node #1 B - Right inguinal Hodges node #1 . CLINICAL INFORMATION C - [...] submitted. (R2) ??ejr 01/29/2017 9:11 PM EDT [facility] 01/19/2017 3:50 PM EDT Carina Lira MD PATHOLOGY/CYTOLO GY ORDERABLES Performing Organization Address [facility] Co de Phone Number [facility] [place] [address] * Specimen to Pathology (surgical or derm) (01/19/2017 3:50 PM EDT) AP Specimen 01/19/2017 3:50 PM EDT 01/19/2017 3:50 PM EDT Narrative [facility] - 01/19/2017 3:50 PM EDT Specimen requisition ordered. ??Separate Pathology report to follow Carina Lira MD PATHOLOGY/CYTOLO GY ORDERABLES Performing Organization Address [facility] Co de Phone Number [facility] [place] [address] documented in this encounter Visit Diagnoses Not [...] Given 01/19/2017 5:08 PM EDT 1,000 mg lactated Ringers infusion 1,000 mL 1,000 [...] hours., Routine 1708 (Given - Provid er: Nela Castro RN) clindamycin (CLEOCIN) 900mg in dextrose [...] Recovery, Routine 1722 (Given - Provid er: Nela Castro RN) Continuous Medication Order 01/17/2017 01/18/2017 01/19/2017 lactated [...] at 1705, Until Yara 01/19/17 at 1949, ENEROLIZA CASTRO: cabinet override 1715 (Due) documented in this encounter Care Teams Brake Drum Molder Relationship Specialty Start Date End Date Phoenix Guzmán DO [address] [place] [address] [place] [address] PCP - General General Internal Medicine 02/20/15 documented as of this encounter
--- OUTSIDE RECORDS SUMMARY | 2023-10-23 09:07 | XMS_ITS | Encounter Summary ---
[place] [address] Care Team Providers Care Flight Manager Name Role Phone Phoenix Guzmán DO Primary Care Provider Encounter Details Date Type Department Care Team (Late st Contact Info) Description 11/29/2016 Telephone Dermatology at [facility] [address] [place] [phone] Nathalia Tobin MD [facility] [address] [place] [address] Social History Tobacco Use Types Packs/Day Years [...] Telephone Encounter - Nathalia Tobin MD - 11/29/2016 2:11 PM EDT Spoke w patient. I would like to see him sooner rather than later given the possibility of melanomaon the penis. We agreed on having pt see me on 12/01 at 2PM. Nathalia Tobin MD Resident in Dermatology [facility] Pager [phone] documented in this encounter Plan of Treatment Upcoming Encounters Date Type Department Care Team (Late st Contact Info) Description 10/31/2023 9:15 AM EDT Office Visit Dermatology at [facility] [address] [place] [address] Dawson Broderick MD [facility] [place] [address] 07/23/2024 9:30 AM EDT Office Visit Dermatology at [facility] [address] [place] [address] Dawson Broderick MD [facility] [address] [place] [address] documented as of this encounter Visit Diagnoses Not on filedocumented in this encounter Care Teams Flight Manager Relationship Specialty Start Date End Date Phoenix Guzmán DO [address] [place] [address] [place] [address] PCP - General General Internal Medicine 02/20/15 documented as of this encounter
--- OUTSIDE RECORDS SUMMARY | 2023-10-23 09:07 | XMS_ITS | Encounter Summary ---
[place] [address] Care Team Providers Care Infant Nanny Name Role Phone Phoenix Guzmán DO Primary Care Provider [phone] Encounter Details Date Type Department Care Team (Late st Contact Info) Description 01/05/2017 [place] [phone] Cassie Manley, RN Social History Tobacco Use Types Packs/Day Years [...] encounter Miscellaneous Notes * Telephone Encounter - Esmer Donaldson RMA - 01/09/2017 3:28 PM EDT Called and talked with Gunnar. He is going to come in on 01/19/[address] Rae. S/P R ELZBIETA REV 06/[address] Rae feels he needs a brace he will get it them but he thinks that he needs to have the old size ball placed back in his hip. He would like to talk to Dr Rae about this at his visit. * Telephone Encounter - Esmer Donaldson RMA - 01/05/2017 3:17 PM EDT Gunnar and his call anxious to know what Dr Rae thinks they should do. They report that thisis his 2nd dislocation in three weeks. I offered to put him on the schd for next week but they wanted to wait to see what Dr Rae advised. * Telephone Encounter - Cassie Manley RN - 01/05/2017 8:13 AM EDT Patient called stating his right hip has dislocated twice in the past 2 weeks. Yesterday was the most recent. He was seen at [facility]. He is s/p hip replacement on 06/29. He has a disc he is going to drop off here tomorrow with images. He will be at the hospital from noon to [address] Rae thinks he needs to be evaluated. His next f/u is scheduled for 02/02. documented in this encounter Plan of Treatment Upcoming Encounters Date Type Department Care Team (Late st Contact Info) Description 10/31/2023 9:15 AM EDT Office Visit Dermatology at [facility] [address] [place] [phone] Dawson Broderick MD [facility] [address] [place] [address] 07/23/2024 9:30 AM EDT Office Visit Dermatology at [facility] [address] [place] [address] Dawson Broderick MD [facility] [place] [address] documented as of this encounter Visit Diagnoses Not on filedocumented in this encounter Care Teams Infant Nanny Relationship Specialty Start Date End Date Phoenix Guzmán DO [address] [place] [address] [place] [phone] PCP - General General Internal Medicine 02/20/15 documented as of this encounter
--- OUTSIDE RECORDS SUMMARY | 2023-10-23 09:07 | XMS_ITS | Encounter Summary ---
[place] [address] Care Team Providers Care Industrial Nurse Name Role Phone Phoenix Guzmán Primary Care Provider [phone] Reason for Visit * Reason Onset Date Comments Physical Therapy 10/12/2016 Encounter Details Date Type Department Care Team (Late st Contact Info) Description 10/12/2016 Telephone [place] [address] Walter Rae MD [facility] [place] [address] Physical Therapy Social History Tobacco Use Types Packs/Day Years [...] Miscellaneous Notes * Telephone Encounter - Walter Martinez - 10/12/2016 9:18 AM EDT Monik called stating that Gunnar was discharged from home PT and was starting with them for outpatient PT, referral for [facility] generated and faxed to [facility] at number provided: [phone] documented in this encounter Plan of Treatment Upcoming Encounters Date Type Department Care Team (Late st Contact Info) Description 10/31/2023 9:15 AM EDT Office Visit Dermatology at [facility] [address] [place] [address] Dawson Broderick MD [facility] [place] [address] 07/23/2024 9:30 AM EDT Office Visit Dermatology at [facility] [address] [place] [address] Dawson Broderick MD [facility] [address] [place] [address] documented as of this encounter Visit Diagnoses Not on filedocumented in this encounter Care Teams Industrial Nurse Relationship Specialty Start Date End Date Phoenix Guzmán DO [address] [place] [address] [place] [phone] PCP - General General Internal Medicine 02/20/15 documented as of this encounter
--- OUTSIDE RECORDS SUMMARY | 2023-10-23 09:07 | XMS_ITS | Encounter Summary ---
[place] [address] Care Team Providers Care Head Of Cytogenetics Name Role Phone Phoenix Guzmán DO Primary Care Provider [phone] Encounter Details Date Type Department Care Team (Latest Contact Info) Description 01/04/2017 - 01/04/2017 11:59 PM EDT Hospital Encounter [place] [address] Walter Rae MD [facility] [place] [address] Pain Discharge Disposition: Home Social History Tobacco Use [...] 9:15 AM EDT Office Visit Dermatology at [facility] [address] [place] [address] Dawson Broderick MD [facility] [place] [address] 07/23/2024 9:30 AM EDT Office Visit Dermatology [facility] [address] [place] [address] Dawson Broderick MD [facility] [place] [address] documented as of this encounter Procedures Procedure Name Priority Date/Time Associated Diagnosis Comments FILM LIBRARY STORAGE ONLY DX HIP Routine 01/04/2017 12:00 AM EDT Pain documented in this encounter Results * Film Library- Storage Only DX Hip (01/04/2017 12:00 AM EDT) Narrative [facility] RAD - 01/06/2017 11:58 AM EDT This exam is for storage only and is auto-finalizing. Walter Rae MD [facility] FILM LIBRARY ORD ERABLES Performing Organization Address City/State/[facility] Co de Phone Number [place], [place] documented in this encounter Visit Diagnoses Diagnosis Pain Generalized pain documented in this encounter Care Teams Head Of Cytogenetics Relationship Specialty Start Date End Date Phoenix Guzmán DO [address] [place] [address] [place] [phone] PCP - General General Internal Medicine 02/20/15 documented as of this encounter
--- OUTSIDE RECORDS SUMMARY | 2023-10-23 09:07 | XMS_ITS | Encounter Summary ---
[place] [address] Care Team Providers Care Creative Writing English Professor Name Role Phone Ramirez Phoenix Davis DO Primary Care Provider [phone] Reason for Referral * Consultation (Routine) - Closed Specialty Diagnoses / Procedures Referred By Omid davis Referred To Contact Urology Diagnoses Malignant melanoma of skin of penis Ronny Gan MD [facility] [address] [place] [address] [facility] [place] [address] Referral ID Status Reason Start Date Expiration Date V isits Requested Visits Authorized [id number] Closed Consult, Test & Treat 12/16/2016 12/16/2017 1 1 Encounter Details Date Type Department Care Team (Late st Contact Info) Description 12/15/2016 [address] at [facility] [address] [place] [address] Ronny Gan MD [facility] DR [address] [address] Social History Tobacco Use Types Packs/Day Years [...] as of this encounter Miscellaneous Notes * Addendum Note - Ronny Gan MD - 12/16/2016 2:10 PM EDTAddended by: RONNY GAN on: 12/16/2016 02:10 PM Modules accepted: Orders * Telephone Encounter - Ronny Gan MD - 12/16/2016 7:50 AM EDT I spoke with the patient. Reports that for the past few days his surgical wound has been oozing white things, tender (moderately). Denies fever, N/V. Has been applying Vaseline diligently. I requested the patient to come in today for an evaluation. He could not come to be evaluated today. Rx: mupirocin 5% TID. Rx: cephalexin 500mg BID PO for 5 days. If the tenderness worsens or bleeds, pt was urged to go to the nearest ED for an evaluation. Requested the patient to come in to be evaluated by us in the next few days. Ronny Gan MD Resident in Dermatology [facility] Pager [phone] * Telephone Encounter - Yadi Puckett - 12/15/2016 2:03 PM EDT Received a call from Gunnar Morin and he wanted to let you know that he feels his biopsy/excision site is infected. Gunnar stated that is was red, tender, and had discharge. Best number to reach him back is [phone]. documented in this encounter Plan of Treatment Upcoming Encounters Date Type Department Care Team (Late st Contact Info) Description 10/31/2023 9:15 AM EDT Office Visit Dermatology at [facility] [address] [place] [address] Dawson Broderick MD [facility] [address] [address] 07/23/2024 9:30 AM EDT Office Visit Dermatology at [facility] [address] [place] [address] Dawson Broderick MD [facility] [place] [place] [address] Scheduled Referrals Name Type Priority Associated Diagnoses Orde r Schedule Referral to Urology Outpatient Referral Routine Malignant melanoma of skin of penis Ordered: 12/16/2016 documented as of this encounter Visit Diagnoses Diagnosis Surgical wound infection, initial encounter 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
--- OUTSIDE RECORDS SUMMARY | 2023-10-23 09:07 | XMS_ITS | Encounter Summary ---
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 Name Role Phone DevantePhoenix orozco Susan MCDOWELL Primary Care Provider [phone] Reason for Visit * Auth/Cert Specialty Diagnoses / Procedures Referred By Omid shepherd Referred To Contact Diagnoses Osteoarthritis of right knee Right knee OA Procedures PRO TOTAL KNEE ARTHROPLASTY @TOTAL KNEE ARTHROPLASTY (WRVU 20.72) Referral ID Status Reason Start Date Expiration Date Visits Re quested Visits Authorized 1 1 Encounter Details Date Type Department Care Team (Late st Contact Info) Description 09/21/2016 1:26 PM EDT - 09/21/2016 3:58 PM EDT [place] [address] Walter Rae MD [facility] [place] [address] TOTAL KNEE ARTHROPLASTY (WRVU 19.6) Social History Tobacco Use Types Packs/Day Years [...] Sign Reading Time Taken Comments Blood Pressure 110/72 09/21/2016 3:45 PM EDT Pulse 72 09/21/2016 3:45 PM EDT Temperature 36.5 ??C (97.7 ??F) 09/21/2016 3:45 PM ED T Respiratory Rate 14 09/21/2016 3:45 PM EDT Oxygen Saturation 97% 09/21/2016 3:45 PM EDT Inhaled Oxygen Concentration - - Weight 133.8 kg (295 lb) 09/21/2016 11:49 AM EDT Height 182.9 cm (6') 09/21/2016 11:49 AM EDT Body Mass Index 40.01 09/21/2016 11:49 AM EDT documented in this encounter Discharge Summaries * Nellie Guzman PA - 09/22/2016 8:51 AM EDT Discharge Summary Patient Name: Gunnar Morin Patient Age: 71 y.o. Language: Nigerien Race: White Ethnicity: Not nor Admit date: 09/21/2016 Discharge date and time: 09/22/2016 Attending Physician: Walter Rae MD Discharge Physician: Walter Rae MD Follow-up Recommendations for Providers: See discharge instructions for additional details. Future Appointments Date Time Provider Department Center 10/20/2016 9:00 AM [facility] 10/20/2016 10:00 AM Walter Rae MD [facility] Inpatient Provider Contact Information: Walter Rae MD Orthopedics: [phone] After hours and weekends, call [facility] Employee'S Representative, , and have the Orthopedic resident paged. [...] bowel movement. You can also take an brdt-fid-qwuxzgo medication, Miralax if needed to combat constipation. [...] 1. You will have follow-up appointments at [facility] as indicated below in Future Appointment and Orders. 2. You will need to have x-rays prior to your follow-up appointment on 10/20/16. Please come to Radiology, desk 3T, 1 hour BEFORE that appointment for those x-rays. Future Appointments Date Time Provider Department [place] 10/20/2016 9:00 AM [facility] DX ROOM 6 Xray [facility] 10/20/2016 [...] 10/20/2016 10:00 AM Walter Rae MD Orthopaedics [phone] Future Orders Complete By Expires Referral to Home Health - at DISCHARGE [[id number] CPT(R)] As directed Process Instructions: Scheduling Instructions: Comments: DISCHARGE DOCUMENTATION FOR VNA SERVICES (INCLUDING PATIENTS WITH MEDICARE COVERAGE BEING DISCHARGED HOME WITH VNA SERVICES AND THOSE PATIENTS WITH MEDICARE COVERAGE WHO ARE BEING DISCHARGED HOME WITH HOSPICE SERVICES) PATIENT'S LOCATION: Gunnar Morin [address] [place] [address] [place] [phone] (home) Cell: Telephone Information: Manager Motor's Name: self In discussion with the attending physician, it is certified that this patient is under their care and that they, or a nurse practitioner, clinical nurse specialist or physician's delinquent tax collection assistant who is working directly with them, [...] for home health services. HOME HEALTH AGENCY: [facility] PHONE: [phone] FAX: [phone] Home care orders for Total Knee Replacements for PT: Residential(SN) eval if indicated on admission visit 1. ASA 2.Do not lift the edge of the mepilex dressing to observe the incision; this dressing needs to stayin place until 7 days after surgery. 3. Staple removal in 10-14 days - (Approx 10/05/16) PER MD/SUSTAINABLE DEVELOPMENT POLICY ANALYST/PA ORDERS 4. Continue PT rehab for balance, [...] this patient's PCP: Phoenix Guzmán DO [address] [place] [address] All VNA agencies which cover the area of patient's residence have been reviewed, either verbally santy writing, and patient/family have chosen the indicated home health care agency for home services. Questions: Agency name and contact information: [facility] Patient location post discharge: home What services are requested: Registered Nurse Physical Therapy Start date: Responsible MD post discharge contact info: PCP Primary Care Provider: Phoenix Guzmán DO [phone] Discharge References/Attachments None documented in this encounter [...] bowel movement. You can also take an rivz-ntl-tareced medication, Miralax if needed to combat constipation. [...] 1. You will have follow-up appointments at [facility] as indicated below in Future Appointment and Orders. 2. You will need to have x-rays prior to your follow-up appointment on 10/20/16. Please come to Radiology, desk 3T, 1 hour BEFORE that appointment for those x-rays. Future Appointments Date Time Provider Department Center 10/20/2016 9:00 AM [facility] DX ROOM 6 [facility]ray [facility] 10/20/2016 10:00 AM Walter Rae MD [facility] 3C [facility] If you have [...] up: as below Jani Beltre Orthopaedic Surgery #[id number] Future Appointments Date Time Provider Department Center 10/20/2016 9:00 AM [facility] DX ROOM 6 [facility] 10/20/2016 10:00 AM Walter Rae MD [address] [facility] Associated attestation - Walter Rae [...] ~ 2 weeks) KATIE IZQUIERDO, PT Pager: [phone] Inpatient Physical Therapy * Plan of Care [...] Operative Note Patient Name: Gunnar Morin : [id number] MR#: [id number] Date of surgery: 09/21/2016 ?? Preoperative diagnosis: Right knee osteoarthritis ?? Postoperative diagnosis: Right knee osteoarthritis ?? Procedure: Right total knee arthroplasty [84627] ?? Anesthesia: Spinal ?? Surgeon: Walter Rae MD MS ?? Pipeline Integrity Engineer: Dawson Beltre MD ?? Estimated blood loss: [...] Rae MD - 09/21/2016 3:36 PM EDT [facility] Operative Note Patient Name: Gunnar Morin : [id number] MR#: [id number] Date of surgery: 09/21/2016 Preoperative diagnosis: Right knee osteoarthritis Postoperative diagnosis: Right knee osteoarthritis Procedure: Right total knee arthroplasty [64040] Anesthesia: Spinal Surgeon: Walter Rae MD MS Pipeline Integrity Engineer: Dawson Beltre MD Estimated blood loss: 150 [...] services accepted. Informed patient that an inpatient customer care consultant will be working to expedite the discharge process and to direct questions to the assigned customer care consultant. = ? Reason for Hospitalization:??Primary OA of [...] have a total knee arthroplasty here at [facility] in the past. ? Current Functional [...] Store ?[address] ?[place] ?Phone:??[phone] ?Fax:??[phone] ?Other:??None ? Primary Care Provider:??Phoenix Guzmán DO??[phone] ? Patient/Caregiver Goals of Treatment:??He wants to be able to mow the lawn, cut the wood, play pickle ball, ride the 4 wheelers, etc. ? Potential Needs for Transition of Care:?Rehab/SNF:??No selection Home Health:? Patient [facility] [address] [place] [address] ? Expected date of discharge: within 24 hrs ? Referral routed to the Gaming Investigator for matching with agency/vendor and to provide any required information. ?OP PT: [facility] ?DME:??He has a 2- 2 FWW's, crutches, 2 canes, grabbers,sock assist, shoe horn, leg demolition worker, shower chair, and commode. ?Dialysis:??No ?Community Resources:??None Transportation:?Other:??None ? Anticipated Barriers to Discharge/Special Considerations:??None ? Plan:??anticipate d/c with [facility] ? A member of the Care Management team will continue to monitor progress, follow for continuity of care and assist with transition of care planning. ? Zuly Almazan RN documented in this encounter Plan of Treatment Upcoming Encounters Date Type Department Care Team (Late st Contact Info) Description 10/31/2023 9:15 AM EDT Office Visit Dermatology at [facility] [address] [place] [address] Dawson Broderick MD [facility] [address] 07/23/2024 9:30 AM EDT Office Visit Dermatology at [facility] [address] [place] [address] Dawson Broderick MD [facility] [address] documented as of this encounter Procedures Procedure Name Priority Date/Time Associated Diagnosis Comments HISTORIC INTERPRETER SCAN 09/23/2016 12:00 AM EDT HEMOGRAM Routine [...] in this encounter Results * SCAN DOC: HISTORIC INTERPRETER (09/23/2016 12:00 AM EDT) Anatomical Region Laterality Modality Other Narrative 09/23/2016 12:00 AM EDT Ordered by an unspecified provider. Scanning Provider MEDIA MGR SCAN EXT O RDR/RSLT * (ABNORMAL) Differential, Automated (09/22/2016 3:46 AM EDT) Neutrophils % 81.2 % [facility] Neutr Abs (ANC) 9.05(H) 1.70 - 6.10 x10(3)/[facility] Lymphocytes % 9.1 % [facility] Lymphocytes Abs 1.0 0.9 - 3.2 x10(3)/[facility] Monocytes % 9.2 % [facility] Monocyte Abs 1.0(H) 0.3 - 0.9 x10(3)/[facility] Eosinophils % 0.0 % [facility] Eosinophils Abs 0.0 0.0 - 0.4 x10(3)/[facility] Basophils % 0.1 % [facility] Basophils Abs 0.0 0.0 - 0.1 x10(3)/[facility] Immature Gran % 0.40 % [facility] Comment: Immature granulocytes(IG's)percentage and absolute count will include metamyelocytes, myelocytes, and promyelocytes. Blood smears from CBCs yielding IG's will be scanned manually for concordance. If this scan disagrees with the automated IG or if promyelocytes are noted, a manual differential will be performed. Geovanna Gran Abs 0.05(H) 0.00 - 0.04 x10(3)/[facility] Blood specimen (specimen) 09/22/2016 3:46 AM EDT 09/22/2016 4:13 AM EDT Narrative Resulting Agency Comment Spec In Lab Walter Rae MD HEMATOLOGY ORDERABLE S Performing Organization Address City/State/[facility] Co de Phone Number [facility] [place] [address] * (ABNORMAL) Hemogram (09/22/2016 3:46 AM EDT) WBC 11.2(H) 4.0 - 9.5 x10(3)/[facility] RBC 3.97(L) 4.58 - 5.54 x10(6)/[facility] Hemoglobin 12.9(L) 13.7 - 16.5 gm/dL [facility] Hematocrit 37.1(L) 40.5 - 48.5 % [facility] MCV 93.5(H) 82.9 - 93.1 fL [facility] MCH 32.5(H) 27.5 - 32.1 pg [facility] MCHC 34.8 32.0 - 35.7 gm/dL [facility] Platelets 218 145 - 357 x10(3)/[facility] RDWSD 43.9 36.0 - 45.0 [facility] RDWCV 12.7 11.4 - 13.8 % [facility] MPV 9.9 7.6 - 12.9 [facility] nRBC % Auto 0.0 % [facility] nRBC Abs Auto 0.000 0.000 - 0.000 x10(3)/[facility] Blood specimen (specimen) 09/22/2016 3:46 AM EDT 09/22/2016 4:13 AM EDT Narrative Resulting Agency Comment Spec In Lab Walter Rae MD HEMATOLOGY ORDERABLE S [facility] [place] [address] * Basic Metabolic Panel (non-fasting) (09/22/2016 3:46 AM EDT) Glucose Lvl 140 65 - 199 mg/dL [facility] Comment:Diabetes: >=200 mg/d L plus symptoms BUN 19 10 - 20 mg/dL [facility] Creatinine 1.20 0.80 - 1.50 mg/dL [facility] Comment: Please note that the pediatric reference intervals supplied above were not validated at [facility]. Results from pediatric patients should be interpreted in conjunction to the patient's age, height and muscle mass. Sodium 137 135 - 145 mmol/L [facility] Potassium 4.7 3.5 - 5.0 mmol/L [facility] Comment: Please note: ??Patients with WBC >100,000 may have falsely elevated Potassium levels. ??For accurate Potassium quantification in these patients send serum separator tube (gold top) for subsequent determinations. ??Contact the Clinical Chemistry Laboratory if there are any questions. Chloride 100 98 - 107 mmol/L [facility] CO2 24 22 - 31 mmol/L [facility] Anion Gap 13 5 - 15 mmol/L [facility] Calcium 8.6 8.5 - 10.5 mg/dL [facility] Estimated GFR 60 >=60 [facility] Comment: This estimated GFR (eGFR) value [...] the following links into your internet browser. 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 [...] Given 09/21/2016 9:19 PM EDT 81 mg BUpivacaine-EPINEPHrine 0.25 %-1:200,000 injection ONCE PRN, Starting on Mon09/21/16 at 1441, Until Mon09/22/16 at 1806, Intra-Operative (Intra-Procedure), Routine Given 09/21/2016 2:41 PM EDT 28.5 mLs 19- Surgical Site carvedilol (COREG) tablet 12.5 mg 12.5 mg, Oral, 2 TIMES DAILY WITH MEALS, First dose on Mon09/21/16 at 2245, Until Discontinued, Hold coreg if SBP<100 or HR<50, STAT Given 09/22/2016 8:10 AM EDT 12.5 mg Given 09/21/2016 10:51 PM EDT 12.5 mg celecoxib (CeleBREX) capsule 200 mg 200 mg, Oral, 2 TIMES DAILY, First dose on Mon09/21/16 at 2100, Until Discontinued, Routine Given 09/22/2016 8:10 AM EDT 200 mg Given 09/21/2016 10:51 PM EDT 200 mg cloNIDine injection ONCE PRN, Starting on Mon09/21/16 at 1442, Until Mon09/22/16 at 1806, Intra-Operative (Intra-Procedure), Routine Given 09/21/2016 2:42 PM EDT 28.5 mcg 19- Surgical Site gabapentin (NEURONTIN) capsule 300 mg 300 mg, Oral, NIGHTLY, First dose on Mon09/23/16 at 2100, Until Discontinued, Routine gabapentin (NEURONTIN) capsule 600 mg 600 mg, Oral, NIGHTLY, 2 doses, First dose on Mon09/21/16 at 2100, Last dose on Mon09/22/16 at 2100, Routine Given 09/21/2016 9:19 PM EDT 600 mg ketorolac (TORADOL) injection ONCE PRN, Starting on Mon09/21/16 at 1442, Until Mon09/22/16 at 1806, Intra-Operative (Intra-Procedure), Routine Given 09/21/2016 2:42 PM EDT 17 mg 19- Surgical Site multivitamin Hiie-Vx-CU-Min (THERAPEUTIC-M) 27-0.4 mg tablet 1 tablet 1 [...] Yara 09/22/16 at 1806, Recovery (Recovery-Hospital Unit) New Bag [...] 1933 (Given - Provider: Esteban Garza RN) 035 (Given - Provider: Gloria Dsouza RN)1130 (Given - Provider: Lisa Roberts, MICHAELA) aspirin EC tablet 81 mg 81 mg, Oral, 2 TIMES DAILY, First dose on Mon09/21/16 at 2100, Until Discontinued, Routine 2118 (Given - Provider: Esteban Garza RN) 0810 [...] Unit), Indication for (Active or Suspected): Prophylaxis 1740 (Given - Provider: Ashanti Beltre - Comment: OR dose given at 1341) 0229 (Given - Provider: Gloria Dsouza RN)1002 (Given - Provider: Lisa Roberts RN)1105 (IV Stop - Provider: Lisa Roberts RN) celecoxib (CeleBREX) capsule 200 mg 200 mg, Oral, 2 TIMES DAILY, First dose on Mon09/21/16 at 2100, Until Discontinued, Routine 2251 (Given - Provider: Dionna Denney RN) 0810 (Given - Provider: Lisa Roberts RN) celecoxib (CeleBREX) capsule 400 mg (COMPLETED) 400 mg, Oral, ONCE, 1 dose, On Mon09/21/16 at 1200, Administer on arrival to Same Day Program, Day of Surgery (Day of Procedure), Routine 1216 (Given - Provider: Emma Weiner RN) gabapentin (NEURONTIN) capsule 300 mg (COMPLETED) 300 mg, Oral, ONCE, 1 dose, On Mon09/21/16 at 1200, Administer on arrival in Same Day Program, Day of Surgery (Day of Procedure), Routine 1216 (Given - Provider: Emma Weiner RN) gabapentin (NEURONTIN) capsule 300 mg(Linked Group 1) 300 mg, Oral, NIGHTLY, First dose on Mon09/23/16 at 2100, Until Discontinued, Routine gabapentin (NEURONTIN) capsule 600 mg(Linked Group 1) 600 mg, Oral, NIGHTLY, 2 doses, First dose on Mon09/21/16 at 2100, Last dose on Mon09/22/16 at 2100, Routine 2118 (Given - Provider: Esteban Garza, RN) ketorolac (TORADOL) injection 15 mg 15 mg, Intravenous, EVERY 6 HOURS SCHEDULED, 4 doses, First dose on Mon09/21/16 at 1600, Last dose on Mon09/22/16 at 0900, Routine 1715 (Not Given - Provider: Esteban Garza, RN - Reason: Contraindicated)225 (Given - Provider: Dionna Denney RN) 0233 (Given - Provider: Gloria Dsouza RN)0811 (Given - Provider: Lisa Roberts RN) multivitamin Yxtq-Hq-YF-Min (THERAPEUTIC-M) 27-0.4 mg tablet 1 tablet 1 tablet, Oral, DAILY, First dose on Mon09/22/16 at 0900, Until Discontinued 08 (Given - Provid er: Lisa Roberts RN) pantoprazole (PROTONIX) tablet 20 mg 20 mg, Oral, DAILY, First dose on Mon09/21/16 at 2245, Until Discontinued, DO NOT CRUSH OR OPEN 2250 (Given - Provider: Dionna Denney RN) polyethylene glycol (MIRALAX) packet 17 g 17 g, Oral, 2 TIMES DAILY, First dose on Mon09/21/16 at 2300, Until Discontinued, Routine 2251 (Given - Provider: Dionna Denney RN) 0811 (Given - Provider: Lisa Roberts RN) senna-docusate (PERICOLACE) 8.6-50 mg per tablet 2 tablet 2 tablet, Oral, 2 TIMES DAILY, First dose on Mon09/21/16 at 2300, Until Discontinued, Routine 225 (Given - Provider: Dionna Denney RN) 0811 (Given - Provider: Lisa Roberts RN) simvastatin (ZOCOR) tablet 20 mg 20 mg, Oral, EVERY EVENING, First dose on Mon09/21/16 at 2245, Until Discontinued, STAT 225 (Given - Provider: Dionna Denney RN) sodium chloride 0.9 % flush 5 mL 5 mL, Intravenous, 2 TIMES DAILY, First dose on Mon09/21/16 at 2100, Until Discontinued, Recovery (Recovery-Hospital Unit), Routine 2123 (Given - Provider: Esteban Garza, MICHAELA) 0811 (Given - Provider: Lisa Roberts, MICHAELA) Continuous Medication Order 09/20/2016 09/21/2016 09/22/2016 lactated [...] Ashanti Beltre) 1130 (Stopped - Provider: Lisa Roberts, MICHAELA) PRN Medication Order 09/20/2016 09/21/2016 09/22/2016 bisacodyl [...] patient unable to take PO, may give [place] if ordered, Routine BUpivacaine-EPINEPHrine 0.25 %-1:200,000 injection [...] Starting on Mon09/21/16 at 1955, Until Yara 17 at 1806, Constipation, Administer if needed per [...] Lenin Rasmussen CRNA)1327 (Given - Provider: Lenin Rasmussen CRNA) ondansetron (ZOFRAN) injection 4 mg (CANCELED) [...] PRN, Starting on Mon09/21/16 at 1540, Until Mon09/22/16 at 1806, flush, Flush pertains to all indwelling lines. Flush per protocol found in the job aid using the link provided on this medication record., Recovery (Recovery-Hospital Unit), Routine Linked Groups Order Group 1: gabapentin (NEURONTIN) capsule 600 mgJump to med 600 mg, Oral, NIGHTLY, 2 doses, First dose on Mon09/21/16 at 2100, Last dose on Mon09/22/16 at 2100, Routine Followed by gabapentin (NEURONTIN) capsule 300 mgJump to med 300 mg, Oral, NIGHTLY, First dose on Mon09/23/16 at 2100, Until Discontinued, Routine documented in this encounter Care Teams Coal Trimmer Machine Operator Relationship Specialty Start Date End Date Phoenix Guzmán DO [address] [place] [address] [place] [address] PCP - General General Internal Medicine 02/20/15 documented as of this encounter
--- OUTSIDE RECORDS SUMMARY | 2023-10-23 09:07 | XMS_ITS | Encounter Summary ---
[place] [address] Care Team Providers Care Peoplesoft Analyst Name Role Phone Phoenix Guzmán DO Primary Care Provider [phone] Encounter Details Date Type Department Care Team (Latest Contact Info) Description 08/23/2016 9:00 AM EDT [place] [phone] Status post total replacement of right hip; Pain of right lower extremity Social History Tobacco Use Types Packs/Day [...] at [facility] [address] [place] [phone] Dawson Broderick MD [facility] DR MYKE [place] [address] 07/23/2024 9:30 AM EDT Office Visit Dermatology at [facility] [address] [place] [address] Dawson Broderick MD [facility] JONYJEANNIE [place] [address] documented as of this encounter Procedures Procedure Name Priority Date/Time Associated Diagnosis Comments ABORH RECHECK STATUS Routine 08/23/2016 9:36 AM EDT TYPE AND SCREEN, SDP (FUTURE SURGERY, [facility] SAME DAY PROGRAM ONLY) Routine 08/23/2016 9:36 AM EDT Status post total replacement of right hip ABO/RH TYPING Routine 08/23/2016 9:36 AM EDT Status post total replacement of right hip ANTIBODY SCREEN Routine 08/23/2016 9:36 AM EDT Status post total replacement of right hip HEMOGRAM Routine 08/23/2016 9:35 AM EDT Status post total replacement of right hip DIFFERENTIAL, AUTOMATED Routine 08/23/2016 9:35 AM EDT Status post total replacement of right hip APTT Routine 08/23/2016 9:35 AM EDT Pain of right lower extremity Status post total replacement of right hip PROTHROMBIN TIME Routine 08/23/2016 9:35 AM EDT Pain of right lower extremity Status post total replacement of right hip CBC (WITH DIFF) Routine 08/23/2016 9:35 AM EDT Status post total replacement of right hip BASIC METABOLIC PANEL (NON-FASTING) Routine 08/23/2016 9:35 AM EDT Status post total replacement of right hip documented in this encounter Results * ABORH Recheck Status (08/23/2016 9:36 AM EDT) ABORH Type Recheck Completed [facility] Blood specimen (specimen) 08/23/2016 9:36 AM EDT 08/23/2016 10:08 AM EDT Narrative Resulting Agency Comment Spec In Lab Walter Rae MD BLOOD BANK LAB ORDER ADRIA [facility] [place] [address] * Antibody screen (08/23/2016 9:36 AM EDT) [facility] Ab Screen Interp Negative [facility] Expires at [id number] on: 09/24/2016 [facility] Blood specimen (specimen) 08/23/2016 9:36 AM EDT 08/23/2016 10:08 AM EDT Narrative Resulting Agency Comment Spec In Lab Walter Rae MD BLOOD BANK LAB ORDER ADRIA [facility] [place] [address] * ABO/Rh Typing (08/23/2016 9:36 AM EDT) Pathologist [facility] ABORH Type A Neg [facility] Blood specimen (specimen) 08/23/2016 9:36 AM EDT 08/23/2016 10:08 AM EDT Narrative Resulting Agency Comment Spec In Lab Walter Rae MD BLOOD BANK LAB ORDER ADRIA [facility] [place] [address] * Differential, Automated (08/23/2016 9:35 AM EDT) [facility] Neutrophils % 51.3 % [facility] Neutr Abs (ANC) 2.82 1.70 - 6.10 x10(3)/mcL [facility] Lymphocytes % 29.9 % [facility] Lymphocytes Abs 1.6 0.9 - 3.2 x10(3)/[facility] Monocytes % 12.7 % [facility] Monocyte Abs 0.7 0.3 - 0.9 x10(3)/[facility] Eosinophils % 4.5 % [facility] Eosinophils Abs 0.2 0.0 - 0.4 x10(3)/[facility] Basophils % 1.1 % [facility] Basophils Abs 0.1 0.0 - 0.1 x10(3)/[facility] Immature Gran % 0.50 % [facility] Comment: Immature granulocytes(IG's)percentage and absolute count will include metamyelocytes, myelocytes, and promyelocytes. Blood smears from CBCs yielding IG's will be scanned manually for concordance. If this scan disagrees with the automated IG or if promyelocytes are noted, a manual differential will be performed. Geovanna Gran Abs 0.03 0.00 - 0.04 x10(3)/[facility] Blood specimen (specimen) 08/23/2016 9:35 AM EDT 08/23/2016 10:18 AM EDT Narrative Resulting Agency Comment Spec In Lab Walter Rae MD HEMATOLOGY ORDERABLE S Performing Organization Address City/State/[facility] Co de Phone Number [facility] [place] [address] * (ABNORMAL) Hemogram (08/23/2016 9:35 AM EDT) WBC 5.5 4.0 - 9.5 x10(3)/[facility] RBC 4.62 4.58 - 5.54 x10(6)/[facility] Hemoglobin 14.6 13.7 - 16.5 gm/dL [facility] Hematocrit 44.0 40.5 - 48.5 % [facility] MCV 95.2(H) 82.9 - 93.1 fL [facility] MCH 31.6 27.5 - 32.1 pg [facility] MCHC 33.2 32.0 - 35.7 gm/dL [facility] Platelets 298 145 - 357 x10(3)/[facility] RDWSD 46.0(H) 36.0 - 45.0 [facility] RDWCV 13.1 11.4 - 13.8 % [facility] MPV 10.0 7.6 - 12.9 [facility] nRBC % Auto 0.0 % [facility] nRBC Abs Auto 0.000 0.000 - 0.000 x10(3)/[facility] Blood specimen (specimen) 08/23/2016 9:35 AM EDT 08/23/2016 10:18 AM EDT Narrative Resulting Agency Comment Spec In Lab Watler Rae MD HEMATOLOGY ORDERABLE S [facility] [place] [address] * APTT (08/23/2016 9:35 AM EDT) [facility] PTT 28 25 - 35 sec [facility] Comment: The recommended therapeutic range for full dose, unfractionated heparin at [facility] is 80 ? 114 seconds. The use of the anti-Xa (heparin) level rather than the PTT is recommended for monitoring anticoagulation intensity in critically ill patients receiving unfractionated heparin by continuous IV infusion. Blood specimen (specimen) 08/23/2016 9:35 AM EDT 08/23/2016 10:18 AM EDT Narrative Resulting Agency Comment Spec In Lab Walter Rae MD HEMATOLOGY ORDERABLE S [facility] [place] [address] * Prothrombin Time (08/23/2016 9:35 AM EDT) PT 13.2 12.0 - 15.0 sec [facility] Comment: An INR <2.0 [...] may be appropriate depending on clinical circumstances. INR 1.0 0.9 - 1.1 [facility] Blood specimen (specimen) 08/23/2016 9:35 AM EDT 08/23/2016 10:18 AM EDT Narrative Resulting Agency Comment Spec In Lab Walter Rae MD HEMATOLOGY ORDERABLE S [facility] [place] [address] * (ABNORMAL) Basic Metabolic Panel (non-fasting) (08/23/2016 9:35 AM EDT) Glucose Lvl 80 65 - 199 mg/dL [facility] Comment:Diabetes: >=200 mg/d L plus symptoms BUN 19 10 - 20 mg/dL [facility] Creatinine 1.21 0.80 - 1.50 mg/dL [facility] Comment: Please note that the pediatric reference intervals supplied above were not validated at [facility]. Results from pediatric patients should be interpreted in conjunction to the patient's age, height and muscle mass. Sodium 139 135 - 145 mmol/L [facility] Potassium 4.7 3.5 - 5.0 mmol/L [facility] Comment: Please note: ??Patients with WBC >100,000 may have falsely elevated Potassium levels. ??For accurate Potassium quantification in these patients send serum separator tube (gold top) for subsequent determinations. ??Contact the Clinical Chemistry Laboratory if there are any questions. Chloride 98 98 - 107 mmol/L [facility] CO2 27 22 - 31 mmol/L [facility] Anion Gap 14 5 - 15 mmol/L [facility] Calcium 9.3 8.5 - 10.5 mg/dL [facility] Estimated GFR 59(L) >=60 [facility] Comment: This estimated GFR [...] the following links into your internet browser. [email or web address] Blood specimen (specimen) 08/23/2016 9:35 AM EDT 08/23/2016 10:18 AM EDT Narrative Resulting Agency Comment Spec In Lab Walter Rae MD CHEMISTRY ORDERABLES Performing Organization Address City/State/[facility] Co de Phone Number [facility] [place] [phone] documented in this encounter Visit Diagnoses Diagnosis Status post total replacement of right hip Pain of right lower extremity documented in this encounter Care Teams Peoplesoft Analyst Relationship Specialty Start Date End Date Phoenix Guzmán DO [address] [place] [address] [place] [address] PCP - General General Internal Medicine 02/20/15 documented as of this encounter
--- OUTSIDE RECORDS SUMMARY | 2023-10-23 09:07 | XMS_ITS | Encounter Summary ---
Author Organization [facility] [place] [address] Care Team Providers Care Reinsurance Analyst Name Role Phone Phoenix Guzmán DO Primary Care Provider [phone] Encounter Details Date Type Department Care Team (Latest Contact Info) Description 08/23/2016 10:46 AM EDT - 08/23/2016 11:59 PM EDT Hospital Encounter XRay at [address] [place] [address] Walter Rae MD [facility] [place] [address] Status post total knee replacement, unspecified laterality Discharge Disposition: Home Social History Tobacco Use [...] by mouth nightly. 30 tablet 08/19/2015 02/03/2017 aspirin 81 mg EC tablet Take 81 mg by mouth daily. 09/22/2016 documented as of this encounter Plan of Treatment Upcoming Encounters Date Type Department Care Team (Late st Contact Info) Description 10/31/2023 9:15 AM EDT Office Visit Dermatology at [facility] [address] [place] [address] Dawson Broderick MD [facility] DR MYKE [place] [address] 07/23/2024 9:30 AM EDT Office Visit Dermatology at [facility] [address] [place] [address] Dawson Broderick MD [facility] [place] [address] documented as of this encounter Procedures Procedure Name Priority Date/Time Associated Diagnosis Comments XR KNEE AP & LAT LEFT Routine 08/23/2016 11:07 AM EDT Status post total knee replacement, unspecified laterality documented in this encounter Results * XR Knee 1-2 Views Left (Generic) (08/23/2016 11:07 AM EDT) Anatomical Region Laterality Modality Knee Left Digital Radiogra phy Impressions 08/23/2016 11:39 AM EDT 1. ??Total knee arthroplasty without definite acute complication. 2. ??Attention to the presence of lucency at the interface of the femoral prosthesis in the medial interface of the tibia on subsequent studies is recommended. I have personally reviewed the image(s) and the residents interpretation and agree with the findings, Ezekiel Juares at 08/23/2016 11:39 AM Narrative 08/23/2016 11:39 AM EDT EXAMINATION: XR KNEE 1-2 VIEWS LEFT (GENERIC) CLINICAL HISTORY: check status of hardware TECHNIQUE: AP and lateral radiograph of the left knee. COMPARISON: Knee radiograph 10/08/2015. FINDINGS: As seen on the patient's only previous postoperative study a total knee arthroplasties in place. Comparison to the earlier study is compromised by the oblique projection of the arthroplasty on both the AP and lateral view on the previous study. There is persistent anterior soft tissue swelling. No large effusion is identified. No fracture. No component displacement. A well-defined radiolucency is present at the anterior interface of the femoral prosthesis. [...] the lateral tray or the tibial stem. Procedure Note Ezekiel Juares MD - 08/23/2016 EXAMINATION: XR KNEE 1-2 VIEWS LEFT (GENERIC) CLINICAL HISTORY: check status of hardware TECHNIQUE: AP and lateral radiograph of the left knee. COMPARISON: Knee radiograph 10/08/2015. FINDINGS: As seen on the patient's only previous postoperative study a total knee arthroplasties in place. Comparison to the earlier study is compromised bythe oblique projection of the arthroplasty on both the AP and lateral view onthe previous study. There is persistent anterior soft tissue swelling. No large effusion is identified. No fracture. No component displacement. A well-defined radiolucency is present at the anterior interface of thefemoral prosthesis. Given the well-defined nature of the bone I suspect this isnonacute resorption of bone but is likely related to the original surgery. Againdirect comparison is not possible due to the obliquity of the previous study. The inability to compare with the previous study also compromisesevaluation of the tibia where an area of lucency projecting at the medial tray isconcerning for early resorption of bone. There is no additional resorption of bone atthe lateral tray or the tibial stem. IMPRESSION 1. Total knee arthroplasty without definite acute complication. 2. Attention to the presence of lucency at the interface of the femoral prosthesis in the medial interface of the tibia on subsequent studies is recommended. I have personally reviewed the image(s) and the residents interpretationand agree with the findings, Ezekiel Juares at 08/23/2016 11:39 AM Walter Rae MD IMG DX ORDERABLES documented in this encounter Visit Diagnoses Diagnosis Status post total knee replacement, unspecified laterality documented in this encounter Care Teams Reinsurance Analyst Relationship Specialty Start Date End Date Phoenix Guzmán DO [address] [place] [address] [place] [address] PCP - General General Internal Medicine 02/20/15 documented as of this encounter
--- OUTSIDE RECORDS SUMMARY | 2023-10-23 09:07 | XMS_ITS | Encounter Summary ---
Author Organization [facility] [place] [address] Care Team Providers Care Unpaid Intern Name Role Phone DevantePhoenix orozco Susan MCDOWELL Primary Care Provider [phone] Reason for Visit * Auth/Cert Specialty Diagnoses / Procedures Referred By Omid shepherd Referred To Contact Diagnoses Osteoarthritis of right knee Right knee OA Procedures PRO TOTAL KNEE ARTHROPLASTY @TOTAL KNEE ARTHROPLASTY (WRVU 20.72) Referral ID Status Reason Start Date Expiration Date Visits Re quested Visits Authorized 1 1 Encounter Details Date Type Department Care Team (Late st Contact Info) Description 09/21/2016 1:24 PM EDT Anesthesia [place] [address] Efren Lozoya MD [facility] [place] [address] Markos Rooney MD [facility] [place] [address] Anesthesia Record Procedure Summary Procedure Name Responsible Anesthesiologist Anesthesia Start Time Anesthesia Stop Time TOTAL KNEE ARTHROPLASTY (WRVU 19.6) (Right: Knee) Efren Lozoya MD 09/21/16 1324 09/21/16 1552 Events Date Time Event Comment 09/21/2016 1250 1324 AN Verify 1324 Start 1324 An Start Data 1336 Anesthesia Ready 1412 An Tourn Inflated 1516 An Tourn Deflated 1516 Break/Relief In ROBER CARNES TAKER, STATION MECHANIC HELPER 1531 Break/Relief Out 1541 an stop data 1552 Recovery or ICU Handoff Charlene ent care was transferred to the destination unit staff after review of the patient's medical history, current anesthetic/surgical status and plan, according to the Provider Handoff Checklist. 1552 Stop Meds Name Total Propofol INF 1,140 mg ePHEDrine 15 mg Dexamethasone 4 mg midazolam (PF) (VERSED) 1 mg/mL injectio n 1 mg 2 mg ondansetron (ZOFRAN) injection 4 mg 4 mg ceFAZolin 3 g lactated Ringers infusion 1,000 mL 1,000 mL * Agents Name O2 Air N2O [...] cephalic vein (lateral side of arm), left; [id number]-aeh-pniunq catheter system; 18 gauge; Emma Weiner RN; intradermal injection, distraction, tolerated well; 0; 01/19/17; 1651 09/21/16 1200 by Emma Weiner RN 01/19/17 1651 by Nela Castro RN Incision 09/21/16; 1355; knee ; 11/29/21 (LDA cleanup utility RA#[id number]); 1715 (LDA cleanup utility RA#[id number]) 09/21/16 1355 by Rianna Pinto RN 11/29/21 1715 by Marion Vásquez documented [...] OR Notes * Anesthesia Postprocedure Evaluation - Efren Lozoya MD - 09/21/2016 4:51 PM EDT [facility] Department of Anesthesiology Post-procedure Note Patient: Gunnar Morin Procedure Summary Date Anesthesia Start Anesthesia Stop Room / Location 09/21/16 1324 1552 [facility] OR [facility] MA[facility] OR Procedure Diagnosis Surgeon Responsible Provider @TOTAL KNEE ARTHROPLASTY (WRVU 20.72) (Right Knee); MODIFIER, ATTUNE CURVED FIXED PLATFORM, DEPUY (N/A Knee) Status post total replacement of right hip (Right knee OA) Walter Rae MD Herrick, Michael D, MD All Anesthesia Providers: Anesthesiologist: Efren Lozoya MD STATION MECHANIC HELPER: Lenin Rasmussen CRNA Last (1hr) Vitals: BP 128/84 (09/21/16 1630) Temp Pulse 67 (09/21/16 1630) Resp 19 (09/21/16 1630) SpO2 94 % (09/21/16 1630) Patient Location: PACU/[facility] Level of Consciousness: Awake and Alert Pain Management: Satisfactory Analgesia PONV: None Cardiovascular Status: Hemodynamically Stable Respiratory Status: Stable Respiratory Status Postoperative Fluid Status: Intravascular EUvolemia Possible Anesthetic Complications: NONE apparent at time of evaluation Final Primary Anesthesia Type: Spinal (The anesthetic type performed was the same as planned.) Comments: Doing well in recovery, happy with his anesthesia care His spine was marked with ultrasound to help facilitate neuraxial EFREN LOZOYA MD * Anesthesia Preprocedure Evaluation - Efren Lozoya MD - 09/20/2016 11:01 AM EDT Pre-Anesthesia Evaluation for: Gunnar Morin a 71 y.o. male. Procedure(s): @TOTAL HIP REVISION ARTHROPLASTY, COMPLETE (WRVU 30.28) MODIFIER S-ROM FEMORAL STEM DEPUY Patient Active Problem List Diagnosis ??? Osteoarthritis of right knee ??? Status post total knee replacement ??? [...] 30.28) performed by Walter Rae MD at [facility] MAIN OR ??? PRO TOTAL KNEE ARTHROPLASTY Left 09/07/2015 @TOTAL KNEE ARTHROPLASTY performed by Watler Rae MD at [facility] MAIN OR Social History Substance Use Topics [...] >3 FB Neck ROM: full Cardiovascular Assessment: Pulmonary Assessment: Dental Assessment: Misc Assessment: Patient is wearing No contact(s). IV access: Peripheral line Anesthesia Plan: ASA 3 general and regional, with a(n) intravenous induction Gunnar Morin is a 71 y/o M scheduled for RIGHT TKA. His PMH is significant for CAD (discovered on pre-op eval >1yr ago, now s/p BMS x2 to LAD, only on ASA off plavix), HTN on carvedilol - stable dose. Denies YESICA (but does snore per ), reports good functional tolerance (able to ambulate 2 FOS without problems). Appropriately NPO. Multiple spinals in the past. Intubated for last TKA, unable to get spinal- grade 2 view with MAC 4blade - 2 attempts. Had lip trauma with intubation, some sore throat. Plan for GETA, arterial line, preop adductor canal block Attending addendum: Patient seen and consented by the regional service Declines adductor canal block Patient requests spinal if possible and understands GA back-up Block team to jasmyn spine in same day Good exercise tolerance EFREN LOZOYA MD Region - Other Informed Consent: Anesthetic plan and risks discussed with patient. Use of blood products discussed with patient who consented to blood products. Plan discussed with STATION MECHANIC HELPER. PAT Staff Note documented in this encounter Plan of Treatment Upcoming Encounters Date Type Department Care Team (Late st Contact Info) Description 10/31/2023 9:15 AM EDT Office Visit Dermatology at [facility] [address] [place] [address] Efren Broderick MD [facility] [address] [place] [address] 07/23/2024 9:30 AM EDT Office Visit Dermatology [facility] [address] [place] [address] Efren Broderick MD [facility] [address] [place] [address] documented as of this encounter Visit Diagnoses Not on filedocumented in this encounter Administered Medications Inactive Administered Medications - up to 3 most recent administrations Medication Order MAR Action Action Date Dose Rate Site ceFAZolin (ANCEF) 1g in dextrose 5% 50mL PRN, Starting on Mon09/21/16 at 1341, Until Mon09/21/16 at 1629, Administer over 30 Minutes, Anesthesia Intra-op Given 09/21/2016 1:41 PM EDT 3 g dexamethasone (DECADRON) injection PRN, Starting on Mon09/21/16 at 1337, Until Mon09/21/16 at 1629, Anesthesia Intra-op, Routine Given 09/21/2016 1:37 PM EDT 4 mg ePHEDrine 5 mg/mL multi-dose injection PRN, Starting on Mon09/21/16 at 1411, Until Mon09/21/16 at 1629, Anesthesia Intra-op, Routine Given 09/21/2016 3:20 PM EDT 5 mg Given 09/21/2016 2:11 PM EDT 10 mg lactated Ringers infusion 1,000 mL 1,000 mL, at 100 mL/hr, Intravenous, CONTINUOUS, Starting on Mon09/21/16 at 1200, Until Mon09/21/16 at 1955, Day of Surgery (Day of Procedure) New Bag 09/21/2016 3:21 PM EDT New Bag 09/21/2016 1:15 PM EDT midazolam (PF) (VERSED) 1 mg/mL injection 1 mg 1 mg, Intravenous, EVERY 5 MIN PRN, Starting on Mon09/21/16 at 1133, Until Mon09/21/16 at 1537, Sleep, or prior to injection of local anesthetic, Hold for delirium/agitation. (Maximum dose 5 mg)., Day of Surgery (Day of Procedure), Routine Given 09/21/2016 1:27 PM EDT 1 mg Given 09/21/2016 1:18 PM EDT 1 mg ondansetron (ZOFRAN) injection 4 mg 4 mg, Intravenous, EVERY 30 MIN PRN, Starting on Mon09/21/16 at 1537, Until Mon09/21/16 at 1955, Nausea, May repeat 4 mg once in 30 minutes. If multiple antiemetics ordered, use ondansetron first and if ineffective use prochlorperazine second and if ineffective use promethazine, PACU Recovery Given 09/21/2016 3:36 PM EDT 4 mg propofol (DIPRIVAN) infusion CONTINUOUS PRN, Starting on Mon09/21/16 at 1337, Until Mon09/21/16 at 1629, Anesthesia Intra-op, Routine Rate/Dose Change 09/21/2016 3:23 PM EDT 80 mcg/kg/min 48 mL/hr New Bag 09/21/2016 1:37 PM EDT 100 mcg/kg/min 60 mL/hr documented in this encounter Care Teams Unpaid Intern Relationship Specialty Start Date End Date Phoenix Guzmán DO [address] [place] [address] [place] [phone] PCP - General General Internal Medicine 02/20/15 documented as of this encounter
--- OUTSIDE RECORDS SUMMARY | 2023-10-23 09:07 | XMS_ITS | Encounter Summary ---
[place] [address] Care Team Providers Care Buttonhole Facer Name Role Phone Phoenix Guzmán DO Primary Care Provider [phone] Encounter Details Date Type Department Care Team (Latest Contact Info) Description 12/20/2016 Multidisciplinary Ca re Committee [place] [address] Cielo Yin MD [facility] HEMATOLOGY/[place] [address] Social History Tobacco Use Types Packs/Day Years [...] Progress Notes * Cielo Yin MD - 12/20/2016 11:59 PM EDT Melanoma - Tumor Board Note Date Presented: 12/20/2016 Presenting Physician: Crista Diagnosis/Tumor Site: 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 documented in this encounter Plan of Treatment Upcoming Encounters Date Type Department Care Team (Late st Contact Info) Description 10/31/2023 9:15 AM EDT Office Visit Dermatology at [facility] [address] [place] [address] Dawson Broderick MD [facility] [place] [address] 07/23/2024 9:30 AM EDT Office Visit Dermatology at [facility] [address] [place] [address] Dawson Broderick MD [facility] [place] [address] documented as of this encounter Visit Diagnoses Not on filedocumented in this encounter Care Teams Buttonhole Facer Relationship Specialty Start Date End Date Phoenix Guzmán DO [address] [place] [address] [place] Laboy [phone] PCP - General General Internal Medicine 02/20/15 documented as of this encounter
--- OUTSIDE RECORDS SUMMARY | 2023-10-23 09:07 | XMS_ITS | Encounter Summary ---
Author Organization [facility] [place] [address] Care Team Providers Care Medical Insurance Biller Name Role Phone DevantePhoenix orozco Susan MCDOWELL Primary Care Provider [phone] Reason for Referral * Consultation (Routine) - Canceled Specialty Diagnoses / Procedures Referred By Omid shepherd Referred To Contact Hematology and Oncology Diagnoses Malignant melanoma of skin of penis Ronny Gan MD [facility] [address] [place] [address] Cielo Yin MD [facility] HEMATOLOGY/[place] [address] Referral ID Status Reason Start Date Expiration Date V isits Requested Visits Authorized [id number] Canceled Consult, Test & Treat 12/13/2016 12/13/2017 1 1 Encounter Details Date Type Department Care Team (Late st Contact Info) Description 12/13/2016 Telephone Dermatology at [facility] [address] [place] [address] Ronny Gan MD [facility] [address] [place] [address] Social History Tobacco Use Types Packs/Day Years [...] Addendum Note - Ronny Gan MD - 12/13/2016 2:01 PM EDTAddended by: RONNY GAN on: 12/13/2016 02:01 PM Modules accepted: Orders * Telephone Encounter - Ronny Gan MD - 12/13/2016 1:51 PM EDT I spoke with the patient and discussed the excision result: ? Surgical Pathology DIAGNOSIS A. Penis, excision: - Invasive melanoma, depth 1.76 mm ?? (see discussion) - Invasive melanoma does not involve specimen margins - In situ melanoma extends to the lateral margin - ??Scar and procedure site changes Electronically signed by: ??Edwin Boykin MD Verified: ??12/13/2016 ?Dermatopathologist DISCUSSION The residual melanoma in this specimen has a depth of 1.76 mm. This finding and the ??ulceration present in the prior biopsy are compatible with pT2b disease. Regression ??changes are present in a portion of the lesion. No vascular invasion or perineural ??invasion is identified. We discussed the next steps including consultation with surgical oncology and heme/onc, I have placed consultations for both. I will discuss the patient's case at tumour board on 12/20. Patient was encouraged to call us if he has any questions. Ronny Gan MD Resident in Dermatology [facility] Pager [phone] documented in this encounter Plan of Treatment Upcoming Encounters Date Type Department Care Team (Late st Contact Info) Description 10/31/2023 9:15 AM EDT Office Visit Dermatology at [facility] [address] [place] [address] Dawson Broderick MD [facility] [address] [place] [address] 07/23/2024 9:30 AM EDT Office Visit Dermatology at [facility] [address] [place] [address] Dawson Broderick MD [facility] [address] [place] [address] Scheduled Referrals Name Type Priority Associated Diagnoses Order Schedule Referral to Hematology and Oncology Outpatient Referral Routine Malignant melanoma of skin of penis Ordered: 12/13/2016 documented as of this encounter Visit Diagnoses Diagnosis Malignant melanoma of skin of penis- Primary Malignant neoplasm of penis, part unspecified documented in this encounter Care Teams Medical Insurance Biller Relationship Specialty Start Date End Date Phoenix Guzmán DO [address] [place] [address] [place] [address] PCP - General General Internal Medicine 02/20/15 documented as of this encounter
--- OUTSIDE RECORDS SUMMARY | 2023-10-23 09:07 | XMS_ITS | Encounter Summary ---
[place] [address] Care Team Providers Care Feather Stitcher Name Role Phone Phoenix Guzmán Primary Care Provider [phone] Encounter Details Date Type Department Care Team (Late st Contact Info) Description 12/08/2016 Telephone Dermatology at [facility] [address] [place] [address] Nathalia Tobin MD [facility] [address] [place] [address] Social History Tobacco Use Types Packs/Day Years [...] Telephone Encounter - Nathalia Tobin MD - 12/08/2016 6:52 PM EDT Spoke w patient RE bx: ? Surgical Pathology DIAGNOSIS Skin, distal right shaft of penis, snip: - Invasive melanoma (see table) Ulceration: ? Present Depth of Invasion: ?At least 0.79 mm Electronically signed by: ??Ashutosh ARECHIGA, Edwin Chau Verified: ??12/07/2016 ?Dermatopathologist Discussed w pt that full depth needs to be assessed. Briefly discussed the importance of depth and further management. We agreed on patient RTC at 1PM on 12/09/16. Nathalia Tobin MD Resident in Dermatology [facility] Pager [phone] documented in this encounter Plan of Treatment Upcoming Encounters Date Type Department Care Team (Late st Contact Info) Description 10/31/2023 9:15 AM EDT Office Visit Dermatology at [facility] [address] [place] [address] Dawson Broderick MD [facility] [place] [address] 07/23/2024 9:30 AM EDT Office Visit Dermatology at [facility] [address] [place] [address] Dawson Broderick MD [facility] [place] [address] documented as of this encounter Visit Diagnoses Not on filedocumented in this encounter Care Teams Feather Stitcher Relationship Specialty Start Date End Date Phoenix Guzmán DO [address] [place] [address] [place] [address] PCP - General General Internal Medicine 02/20/15 documented as of this encounter
--- OUTSIDE RECORDS SUMMARY | 2023-10-23 09:07 | XMS_ITS | Encounter Summary ---
Author Organization [facility] [place] [address] Care Team Providers Care Dairy Processing Supervisor Name Role Phone Phoenix Guzmán DO Primary Care Provider [phone] Reason for Visit * Reason Comments Skin Lesion Encounter Details Date Type Department Care Team (Late st Contact Info) Description 12/22/2016 2:45 PM EDT Office Visit Dermatology at [facility] [address] [place] [address] Nathalia Tobin MD [facility] [address] [place] [address] Wound, open, penis, sequela (Primary Dx); Personal history of malignant melanoma Social History Tobacco Use Types Packs/Day [...] Progress Notes * Nathalia Tobin MD - 12/22/2016 2:45 PM EDT Images from the original note were not included. DERMATOLOGY - ESTABLISHED PATIENT NOTE Date of service: 12/22/2016 Gunnar Morin : 1945, 71 y.o. CC: F/U of penis wound HPI: Gunnar Morin is a 71 y.o. male here for the eval of his penis. Last spoke w patient over phone on 12/15. He was describing symptoms of tenderness and oozing white matter. We prescribed 5-day course of Keflex and mupirocin ointment. Has had significant relief as aresult. Denies any tenderness. Still oozing somewhat, uses a pad. Still applying mupirocin. Denies any fever, N/V. Relevant Skin History: - MM of penis shaft: 1.76mm, pT2b -- pending SLNB Family History: Melanoma: no Relevant Social History: - lives with Medications: Reviewed Allergies: Allergies Allergen Reactions ??? Amoxicillin Trihydrate Hives Review of Systems: - General: Feels well. - Skin: No other skin concerns. Examination: - Constitutional: Patient was alert, well-appearing and in no noticeable distress. - Skin: Skin examination of the penis Diagnosis/Skin findings/Assessment/Plan: 1. Penis wound with granulation tissue -- no evidence of active infection: 2-3cm ulcer with alvarado-white tissue. No significant erythema. - reassured today that there is no active infection - continue with mupirocin ointment - discussed the excision results, patient will require sentinel lymph node biopsy - already scheduled to see Dr. Patton -- surg onc - if patient develops symptoms of tenderness and oozing of pus, will repeat course of Keflex again RTC: Pending result of SLNB. The following photos were obtained with patient consent: Note initiated by STEPHON LEBLANC LPN. I am documenting this encounter acting as the scribe for and inthe presence of Nathalia Tobin MD: I performed the above scribed service and agree with the accuracy of the documentation in this encounter. Reviewed and signed by Nathalia Tobin MD Resident in Dermatology [facility] Patient seen in conjunction with staff medical imaging technologist: Kandy Bolton MD Section of Dermatology [facility] * Dawson Bolton MD - 12/22/2016 2:45 PM EDT I directly supervised Dr. Nathalia Tobin during this office visit. Dr. Tobin presented the history and physical exam to me. I then saw and examined this patient with Dr. Tobin. We reviewed the history and pertinent details and I confirmed the physical findings. I agree with the details of the history and physical exam as documented in Dr. Tobin's note. Deepest depth of the melanoma, 1.76 mm, needs SNL for complete staging, ? 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 Thinks he had an infection post excision, we did not see the lesion at that time, got better with antibiotics, ? , other than that he has no complaints with the wound. Actually doing really well. Almost healed. Again discussed surgical options, and we want to take penectomy off the table, unless absolutely necessary. Also, second intention healing is a great option for him as the rapid improvement of this excisional wound has shown. 70% closed in 2 weeks of healing without much pain or wound care issues. Would like to use this approach again, if at all possible, after the final excision, dermmulu Patton. Or imiquimod. DAWSON BOLTON MD Staff Physician documented in this encounter Plan of Treatment Upcoming Encounters Date Type Department Care Team (Late st Contact Info) Description 10/31/2023 9:15 AM EDT Office Visit Dermatology at [facility] [address] [place] [address] Dawson Bolton MD [facility] [address] [place] [address] 07/23/2024 9:30 AM EDT Office Visit Dermatology at [facility] [address] [place] [address] Dawson Bolton MD [facility] [place] [address] documented as of this encounter Visit Diagnoses Diagnosis Wound, open, penis, sequela- Primary Personal history of malignant melanoma Personal history of malignant melanoma of skin documented in this encounter Care Teams Dairy Processing Supervisor Relationship Specialty Start Date End Date Phoenix Guzmán DO [address] [place] [address] [place] [phone] PCP - General General Internal Medicine 02/20/15 documented as of this encounter
--- OUTSIDE RECORDS SUMMARY | 2023-10-23 09:07 | XMS_ITS | Encounter Summary ---
Author [facility] [place] [address] Care Team Providers Care Ferry Hand Name Role Phone RamirezPhoenix Susan MCDOWELL Primary Care Provider [phone] Reason for Visit * Consultation (Routine) - Closed Specialty Diagnoses / Procedures Referred By Omid shepherd Referred To Contact General Surgery Diagnoses Malignant melanoma of skin of penis Nathalia Tobin MD [facility] [address] [place] [address] [facility] [place] [address] Referral ID Status Reason Start Date Expiration Date V isits Requested Visits Authorized [id number] Closed Consult, Test & Treat 12/12/2016 12/12/2017 1 1 Encounter Details Date Type Department Care Team (Late st Contact Info) Description 01/06/2017 12:00 PM EDT Office Visit General Surgery at [place] [id number] [facility] [place] [address] Malignant melanoma of skin of penis Social [...] Sign Reading Time Taken Comments Blood Pressure 132/68 01/06/2017 11:47 AM EDT Pulse 79 01/06/2017 11:47 AM EDT Temperature 36.7 ??C (98.1 ??F) 01/06/2017 1 1:47 AM EDT Respiratory Rate 14 01/06/2017 11:4 7 AM EDT Oxygen Saturation 98% 01/06/2017 11: 47 AM EDT Inhaled Oxygen Concentration - - Weight 131.6 kg (290 lb 3.2 oz) 017 11:47 AM EDT Height 182.9 cm (6') 01/06/2017 11:47 AM EDT Body Mass Index 39.36 01/06/2017 11:47 AM EDT documented in this encounter Progress Notes * Carina Patton MD - 01/06/2017 12:00 PM EDT Surgical Oncology Consultation Note Reason for Visit: Gunnar Morin is a 71 y.o. 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 History of the present illness: Gunnar Morin [...] the penis, 2.5 x 2.3 cm brown pigmented patch with central whitish-blue nodule with ulceration. A snip biopsy was performed which showed an at least 0.79 malignant melanoma, positive ulceration, 3mitosis with positive margins. He underwent further excision with 5mm margins with secondary intention healing wound. Path as follows: 12/09/16 Penis shaft, excision Malignant Melanoma Thickness 1.76 mm. Ulceration was present. The lesion had 3 mitoses per mm2. Peripheral margin was positive for MIS on lateral margin Deep margin was negative T2b The patient presents today for evaluation and discussion of treatment options. In addition to the above history he states that the wound is healing but still has some drainge. Did take antibiotics asdirected. It has no associated itching, bleeding. Mild tenderness. He is not personally concerned about any other moles or skin lesions. He denies noticing any abnormal adenopathy. He reports signficant sun exposure during childhood/adolescence. His family history is reported below and is notable for no history of melanoma or other skin cancers. Overall, he feels well. Denies fatigue. Denies weight loss. Denies headaches. He is accompanied to this visit by his Active Ambulatory Problems Diagnosis Date Noted ??? s/p revision R [...] sp R TKA on 09/21/16 Butch 08/24/2016 Resolved Ambulatory Problems Diagnosis Date Noted ??? Anticoagulation management encounter 06/30/2016 No Additional Past Medical History Past Surgical History: Procedure Laterality Date ??? PRO REVISE TOTAL HIP REPLACEMENT Right 06/29/2016 @TOTAL HIP REVISION ARTHROPLASTY, COMPLETE (WRVU 30.28) performed by Walter Rae MD at [facility] OR ??? PRO TOTAL KNEE ARTHROPLASTY Left 09/07/2015 @TOTAL KNEE ARTHROPLASTY performed by Walter Rae MD at [facility] OR ??? PRO TOTAL KNEE ARTHROPLASTY Right 09/21/2016 @TOTAL KNEE ARTHROPLASTY (WRVU 20.72) performed by Walter Rae MD at [facility] OR Review of systems: A 12 point comprehensive ROS was reviewed with the patient. It was otherwise negative except for what was stated in the HPI Current Outpatient Prescriptions: ??? aspirin 81 mg [...] Instructions. Reported on 07/28/2016, Disp: , Rfl: Allergies: Allergies Allergen Reactions ??? Amoxicillin Trihydrate Hives Social History: Social History Social History ??? Marital status: [...] ??? Not on file Social History Narrative Family History Problem Relation Age of Onset ??? Cancer Mother Physical Examination: Constitutional: This is a 71 y.o. male in no apparent distress. BP 132/68 (BP Location (NBP): Right arm, Patient Position: Sitting, BP Cuff Sizes: Large Adult (32-43 cm)) Pulse 79 Temp 36.7 ??C (98.1 ??F) (Oral) Resp 14 Ht 182.9 cm (6') Wt (!) 131.6 kg (290 lb 3.2 oz) SpO2 98% BMI 39.36 kg/m2 A focused examination of the biopsy site on his penile shaft revealed a granulating wound. No surrounding erythema. + fibrinous exudate. There were no satellite or in-transit nodules palpated. Lymphatic basin exam: There was no palpable adenopathy in the bilateral supraclavicular, cervical, axillary or inguinal regions. Eyes: anicteric, extra ocular movements are intact [...] strength Skin: warm, dry, good turgor, non-icteric. Assessment and plans: Gunnar Morin is a [...] further once we get final staging pathology. We also spent time reviewing the nature and natural history of melanoma. We discussed recurrence risk and common recurrence patterns. We also reviewed the importance of full skin checks and sun protection. The patient And his asked multiple questions which were answered to their satisfaction and he would like to proceed with plan as follows: 1) lymphatic mapping, SLNB with lymphoscintigraphy. I explained the implications, indications and alternatives to the proposed treatment plan as well as the risks, including infection, bleeding/hematoma, seroma, need for additional surgery, lymphedema. Consent form has been signed. Same day surgery, out patient. 2) Present at melanoma tumor board 3) Continue dermatology follow up Q3-6 months skin exams Carina Patton MD Surgical Oncology documented in this encounter Plan of Treatment Upcoming Encounters Date Type Department Care Team (Late st Contact Info) Description 10/31/2023 9:15 AM EDT Office Visit Dermatology at [facility] [address] [place] [address] [facility] [place] [address] 07/23/2024 9:30 AM EDT Office Visit Dermatology at [facility] [address] [place] [address] [facility] [place] [address] documented as of this encounter Visit Diagnoses Diagnosis Malignant melanoma of skin of penis Malignant neoplasm of penis, part unspecified documented in this encounter Care Teams Ferry Hand Relationship Specialty Start Date End Date Phoenix Guzmán DO [address] [place] [address] [place] [address] PCP - General General Internal Medicine 02/20/15 documented as of this encounter
--- OUTSIDE RECORDS SUMMARY | 2023-10-23 09:07 | XMS_ITS | Encounter Summary ---
[place] [address] Care Team Providers Care Environmental Services Technician Name Role Phone DevantePhoenix orozco Primary Care Provider [phone] Reason for Referral * Diagnostic Test (Routine) - Closed Specialty Diagnoses / Procedures Referred By Omid shepherd Referred To Contact Radiology Diagnoses Malignant melanoma, unspecified site Procedures NM Lymphoscintigraphy w Imaging Melanoma or Skin Cancer Carina Patton MD [facility] [place] [address] [place] [address] Referral ID Status Reason Start Date Expiration Date V isits Requested Visits Authorized [id number] Closed Specialty Service Requested 01/06/2017 01/06/2018 2 2 Encounter Details Date Type Department Care Team (Late st Contact Info) Description 01/06/2017 Orders [place] [address] aCrina Patton MD [facility] [place] [address] Malignant melanoma, unspecified site Social History Tobacco [...] EDT Office Visit Dermatology at [facility] [address] [place] [address] Dawson Broderick MD [facility] [place] [address] 07/23/2024 9:30 AM EDT Office Visit Dermatology at [facility] [address] [place] [address] Dawson Broderick MD [facility] [place] [address] documented as of this encounter Results * NM Lymphoscintigraphy w Imaging Melanoma or Skin Cancer (01/19/2017 11:40 AM EDT) Anatomical Region Laterality Modality Nuclear Medicine Impressions 01/19/2017 12:15 PM EDT [place] node drainage to the inguinal regions bilaterally. [...] which have theappearance of lymphatic channels. IMPRESSION [place] node drainage to the inguinal regions bilaterally. Preliminary report signed by: Dean Nguyen at 01/19/2017 11:51 AM I have personally reviewed the image(s) and the residents interpretationand agree with the findings, Geraldo Lau at 01/19/2017 12:15 PM Carina Lira MD G NM ORDERABLE S documented in this encounter Visit Diagnoses Diagnosis Malignant melanoma, unspecified site Malignant melanoma, unspecified site documented in this encounter Care Teams Environmental Services Technician Relationship Specialty Start Date End Date Phoenix Guzmán DO [address] [place] [address] [place] [address] PCP - General General Internal Medicine 02/20/15 documented as of this encounter
--- OUTSIDE RECORDS SUMMARY | 2023-10-23 09:07 | XMS_ITS | Encounter Summary ---
Author Organization [facility] [place] [address] Care Team Providers Care Catering Assistant Name Role Phone Phoenix Guzmán Primary Care Provider [phone] Encounter Details Date Type Department Care Team (Late st Contact Info) Description 11/25/2016 Telephone Dermatology at [facility] [address] [place] [phone] Nathalia Tobin MD [facility] [address] [place] [address] Social History Tobacco Use Types Packs/Day Years [...] Telephone Encounter - Nathalia Tobin MD - 11/25/2016 8:41 AM EDT I received a call from [facility] from Dr. Cordova of [facility] ([phone]). Reports that patient was recently seen for physical and was found to have a deeply pigmented noduleon the shaft of penis, just proximal to the glans. Spot present for approximately 2 years. Never been treated/biopsied. Concerned about melanoma. I will request for pt to be seen at Derm for eval and possibly biopsy. Nathalia Tobin MD Resident in Dermatology [facility] Pager [phone] documented in this encounter Plan of Treatment Upcoming Encounters Date Type Department Care Team (Late st Contact Info) Description 10/31/2023 9:15 AM EDT Office Visit Dermatology at [facility] [address] [place] [address] Dawson Broderick MD [facility] DR [address] [place] [address] 07/23/2024 9:30 AM EDT Office Visit Dermatology at [facility] [address] [place] [address] Dawson Broderick MD [facility] DR [address] [place] [address] documented as of this encounter Visit Diagnoses Not on filedocumented in this encounter Care Teams Catering Assistant Relationship Specialty Start Date End Date Phoenix Guzmán DO [address] [place] [address] [place] [address] PCP - General General Internal Medicine 02/20/15 documented as of this encounter
--- OUTSIDE RECORDS SUMMARY | 2023-10-23 09:07 | XMS_ITS | Encounter Summary ---
[place] [address] Care Team Providers Care Mold Bunch Trimmer Name Role Phone Phoenix Guzmán DO Primary Care Provider [phone] Reason for Visit * Reason Comments Aftercare Of Tjr right ELZBIETA dislocatio n Encounter Details Date Type Department Care Team (Late st Contact Info) Description 12/22/2016 9:00 AM EDT Office [place] [address] Walter Rae MD [facility] [place] [address] S/P total hip arthroplasty, right Social History Tobacco [...] Sign Reading Time Taken Comments Blood Pressure 138/70 12/22/2016 9:42 AM EDT Pulse 71 12/22/2016 9:42 AM EDT Temperature - - Respiratory Rate - - Oxygen Saturation - - Inhaled Oxygen Concentration - - Weight 127 kg (280 lb) 12/22/2016 9:42 AM EDT Height 182.9 cm (6') 12/22/2016 9:42 AM EDT Body Mass Index 37.97 12/22/2016 9:42 AM EDT documented in this encounter Progress Notes * Walter Rae MD - 12/22/2016 9:00 AM EDT Interval history: Patient is a 71-year-old male who 6 months ago underwent revision right total hipfor polyethylene wear. Patient did well for the first initial 6 months and then had a posterior hipdislocation. This was reduced at an outside institution. X-rays from outside institution show concentric reduction. Patient has been feeling well since his dislocation. He was in a provocative position during his dislocation. The prior 5-1/2 months he did not have any sense of instability. He has no neurovascular changes. He is doing well otherwise. Physical exam: Sitting in no apparent distress Examination of the right hip shows smooth range of motion with flexion, internal, external rotation. Distal neurovascular was grossly intact. He walks without a significant antalgic gait. X-rays from outside institution show concentric reduction of the prior total hip arthroplasty without signs of fracture, loosening, subsidence. Assessment/plan: Patient is a 71-year-old male with first-time dislocation status post head and liner exchange for polyethylene wear. This is surprising to me that he had a dislocation at this point in time. Discussed with him options for enhanced posterior hip precautions. I discussed the use of abduction orthosis which he would like to stay away from. I did discuss that if he dislocates again he will need to be placed in a hip abduction orthosis. I also discussed that if he becomes a chronic dislocator revision would be likely needed. We will see him back in 6 weeks time with x-ray. documented in this encounter Plan of Treatment Upcoming Encounters Date Type Department Care Team (Late st Contact Info) Description 10/31/2023 9:15 AM EDT Office Visit Dermatology at [facility] [address] [place] [address] Dawson Broderick MD [facility] [address] [place] [address] 07/23/2024 9:30 AM EDT Office Visit Dermatology at [facility] [address] [place] [address] Dawson Broderick MD [facility] [place] [address] documented as of this encounter Visit Diagnoses Diagnosis S/P total hip arthroplasty, right documented in this encounter Care Teams Mold Bunch Trimmer Relationship Specialty Start Date End Date Phoenix Guzmán DO [address] [place] [address] [place] [address] PCP - General General Internal Medicine 02/20/15 documented as of this encounter
--- OUTSIDE RECORDS SUMMARY | 2023-10-23 09:07 | XMS_ITS | Encounter Summary ---
[place] [address] Care Team Providers Care Postmaster Name Role Phone Phoenix Guzmán Primary Care Provider [phone] Reason for Visit * Reason Onset Date Comments Hip Pain 12/19/2016 Encounter Details Date Type Department Care Team (Late st Contact Info) Description 12/19/2016 Telephone [place] [address] Walter Rae MD [facility] DR [place] [address] Hip Pain Social History Tobacco Use Types Packs/Day Years [...] * Telephone Encounter - Sun Pearson - 12/21/2016 2:23 PM EDT Patient is scheduled for tomorrow 12/22 at 9:00am in . Patient and are aware they may have towait for Dr Rae. * Telephone Encounter - Sun Pearson - 12/21/2016 9:08 AM EDT Patient called and was checking the status of his appt with Dr Rae about his right ELZBIETA dislocation. He was hoping to be seen tomorrow because he has an appt with Dermatology at 2:45. Wasn't sure when Dr Rae wants to see him urgently this week vs. first available open slot, since he is in covering trauma and in surgery the rest of the week. Please call patient at [phone] to schedule. * Telephone Encounter - Gini Michael - 12/21/2016 8:58 AM EDT Gunnar called back to follow up on what the appropriate course of action would be for his hip. After reviewing his chart and telephone encounter from Monday, I relayed to the patient that the information had been requested from [facility], and that Dr. Rae was hoping to see him to follow up on that hip. The patient was agreeable, and I transferred him over to scheduling to set up an appt. * Telephone Encounter - Gini Bowens - 12/19/2016 2:38 PM EDT Request sent to [facility] * Telephone Encounter - Walter Martinez - 12/19/2016 2:10 PM EDT Gunnar called to report that over the weekend his surgical replaced hip s/p 06/29/16 had dislocated.He went to [facility] in [place], [place] to have the dislocation reduced. He was calling toupdate Dr. Rae that the dislocation occurred and wanted to get the information sent over from [facility]. I let him know that we would request the information and after review of our physician that we would get a hold of him for care. documented in this encounter Plan of Treatment Upcoming Encounters Date Type Department Care Team (Late st Contact Info) Description 10/31/2023 9:15 AM EDT Office Visit Dermatology at [facility] [address] [place] [address] Dawson Broderick MD [facility] [place] [address] 07/23/2024 9:30 AM EDT Office Visit Dermatology at [facility] [address] [place] [address] Dawson Broderick MD [facility] [place] [address] documented as of this encounter Visit Diagnoses Not on filedocumented in this encounter Care Teams Postmaster Relationship Specialty Start Date End Date Phoenix Guzmán DO [address] [place] [address] [place] [address] PCP - General General Internal Medicine 02/20/15 documented as of this encounter
--- OUTSIDE RECORDS SUMMARY | 2023-10-23 09:07 | XMS_ITS | Encounter Summary ---
[place] [address] Care Team Providers Care Commercial Roofing Estimator Name Role Phone Phoenix Guzmán DO Primary Care Provider [phone] Reason for Visit * Reason Comments Follow Up Surgery Right TKA 09/21/16 Encounter Details Date Type Department Care Team (Latest Contact Info) Description 10/20/2016 10:00 AM EDT Office [place] [address] Walter Rae MD [facility] [place] [address] Osteoarthritis of right knee, unspecified osteoarthritis type [...] Sign Reading Time Taken Comments Blood Pressure 120/73 10/20/2016 10:02 AM EDT Pulse 72 10/20/2016 10:02 AM EDT Temperature - - Respiratory Rate - - Oxygen Saturation - - Inhaled Oxygen Concentration - - Weight 127 kg (280 lb) 10/20/2016 10:02 AM EDT Height 182.9 cm (6') 10/20/2016 10:02 AM EDT Body Mass Index 37.97 10/20/2016 10:02 AM EDT documented in this encounter Progress Notes * Thania Moreno PA - 10/20/2016 10:00 AM EDT Arthroplasty/Orthopaedic History: 1. Right ELZBIETA - 11/06/1996 - Dr. Quintanilla 2. Left TKA - 09/07/15 - Dr. Rae 3. Right ELZBIETA revision w/ head-liner exchange - 06/29/16 - Dr. Rae 4. Right TKA 09/21/16 - Dr. Rae HPI: Gunnar Morin is a very pleasant 71 y.o. year-old male and is now 4 weeks post right TKA. Hehas been doing very well. He has no pain or complaints regarding the knee. He is not taking any pain medication, and is only using APAP. He walks with a cane on uneven ground only. He is at outpatient PT and has made great progress. He denies any problems with the incision. His health is otherwise stable and he has no complaints regarding any of this other joints. ROS: Denies: fever, chills, night sweats, nausea, or vomiting BP 120/73 Pulse 72 Ht 182.9 cm (6') Wt (!) 127 kg (280 lb) BMI 37.97 kg/m2 Physical Exam: Well-appearing male in no acute distress. Alert and Oriented x 3 and answers all questions appropriately. The incision is well healed, with no signs of infection. I have made the following determinations: Post Op Right Knee Exam: Knee ROM: Extension:0 Flexion: 120 Alignment: 0-4 degrees Neutral Stability: A/P Translation <5mm. Varus (lateral stability)<5mm Valgus (medial stability) <5mm Extension La degrees or less Patella Tracking: Normal Pulses Palpable: Right PT: Yes Right DP:Yes Motor/Sensory: Distal Motor: Normal Distal Sensory: Normal Quadriceps Strength: 5 X-RAYS: Multiple radiographic views were obtained at my request and reviewed with the patient. X-rays show a well-placed prosthesis with no evidence of fracture, subsidence, loosening, or periprosthetic complication. Questionnaire Responses: [facility] Surgical Postop Visit 10/20/2016 PROMIS-10 General Health Very Good PROMIS-10 Quality of Life Very Good PROMIS-10 Physical Health Very Good PROMIS-10 Mental Health Very Good PROMIS-10 Social Activity Very Good PROMIS-10 Everyday Activities Mostly PROMIS-10 Pain 4 PROMIS-10 Fatigue Mild PROMIS-10 Social Roles Good PROMIS-10 Anxious or Depressed Never PROMIS PHYSICAL HEALTH SCORE 47.7 PROMIS MENTAL HEALTH SCORE 56 HOOS JR Scores - KOOS JR Scores 61.58 Problems with surgical incision/wound after surgery No Gone to ER since knee surgery No Admitted to hospital since recent ortho surgery No Additional surgery on same body part No Hospital - Surgeon - Date of surgery - Reason for surgery - TKA Grade 7 Pain in other KNEE None ELZBIETA Grade - Pain in other HIP - Back pain at this moment None Satisfaction with Treatment Satisfied Choose Same Treatment Again Definitely yes Orthopeadics [facility] Response 10/20/2016 HOOS JR Scores - KOOS JR Scores 61.58 Spine [facility] Response 10/20/2016 HOOS JR Scores - KOOS JR Scores 61.58 ASSESSMENT/PLAN: Mr. Morin is a 71 y.o. year old male status post right total knee replacement. Heis doing very well and is happy with his new knee. He can progress all activities as tolerated, andwe discussed that he can drive now. We reviewed dental prophylaxis and monitoring for any signs of infection. He is doing so well and coming from 2 hours away, so he does not need to come back for his 3 month post-op check, and he will follow up in 1 year with bilateral knee X-rays and right hip X-rays, to combine all of his visits. documented in this encounter Plan of Treatment Upcoming Encounters Date Type Department Care Team (Late st Contact Info) Description 10/31/2023 9:15 AM EDT Office Visit Dermatology at [facility] [address] [place] [address] Dawson Broderick MD [facility] [address] [place] [address] 07/23/2024 9:30 AM EDT Office Visit Dermatology at [facility] [address] [place] [address] Dawson Broderick MD [facility] [address] [place] [address] documented as of this encounter Visit Diagnoses Diagnosis Osteoarthritis of right knee, unspecified osteoarthritis type documented in this encounter Care Teams Commercial Roofing Estimator Relationship Specialty Start Date End Date Phoenix Guzmán DO [address] [place] [address] [place] [phone] PCP - General General Internal Medicine 02/20/15 documented as of this encounter
--- OUTSIDE RECORDS SUMMARY | 2023-10-23 09:07 | XMS_ITS | Encounter Summary ---
Author Organization [facility] [place] [address] Care Team Providers Care Nuisance Wildlife Specialist Name Role Phone Phoenix Guzmán DO Primary Care Provider [phone] Encounter Details Date Type Department Care Team (Latest Contact Info) Description 10/20/2016 9:00 AM EDT - 10/20/2016 11:59 PM EDT Hospital Encounter XRay at [address] [place] [address] Walter Rae MD [facility] [place] [address] Status post total replacement of right hip [...] once daily dose 58 tablet 09/22/2016 10/21/2016 naproxen (NAPROSYN) 500 mg Tablet Take 1 [...] rectally daily as needed (constipation). 09/22/2016 12/22/2016 pravastatin (PRAVACHOL) 10 mg Tablet Take 1 tablet by mouth nightly. 30 tablet 08/19/2015 02/03/2017 documented as of this encounter Plan of Treatment Upcoming Encounters Date Type Department Care Team (Late st Contact Info) Description 10/31/2023 9:15 AM EDT Office Visit Dermatology at [facility] [address] [place] [address] Dawson Broderick MD [facility] [place] [address] 07/23/2024 9:30 AM EDT Office Visit Dermatology at [facility] [address] [place] [address] Dawson Broderick MD [facility] [place] [address] documented as of this encounter Procedures Procedure Name Priority Date/Time Associated Diagnosis Comments XR KNEE STANDING ALIGNMENT AP LAT SKYLINE RIGHT Routine 10/20/2016 9:41 AM EDT Status post total replacement of right hip documented in this encounter Results * XR Knee Standing Alignment AP Lat [place] Right (10/20/2016 9:41 AM EDT) Anatomical Region Laterality Modality Knee Right Digital Radiogra phy Impressions 10/20/2016 9:46 AM EDT Post bilateral total knee arthroplasties since the previous study. No radiographic evidence of complication. No joint effusion. Standing alignment views: Mild lateral displacement of RIGHT mechanical axis and mild medial displacement of LEFT mechanical axis. Narrative 10/20/2016 9:46 AM EDT EXAMINATION: XR KNEE STANDING ALIGNMENT AP LAT SKYLINE RIGHT CLINICAL HISTORY: History of knee replacement TECHNIQUE: Separate images of the pelvis, knees and feet were acquired in the AP projection with the patient standing. These images were stitched together to form a composite image of the pelvis and legs allowing for evaluation of lower extremity alignment in the weight bearing position. Standing alignment views COMPARISON: Preoperative study from 04/12/2016 FINDINGS: Post bilateral total knee arthroplasties since the previous study. No radiographic evidence of complication. No joint effusion. Standing alignment views: Mild lateral displacement of RIGHT mechanical axis and mild medial displacement of LEFT mechanical axis. Procedure Note Dawson Thompson MD - 10/20/2016 EXAMINATION: XR KNEE STANDING ALIGNMENT AP LAT SKYLINE RIGHT CLINICAL HISTORY: History of knee replacement TECHNIQUE: Separate images of the pelvis, knees and feet were acquired inthe AP projection with the patient standing. These images were stitched togetherto form a composite image of the pelvis and legs allowing for evaluation oflower extremity alignment in the weight bearing position. Standing alignmentviews COMPARISON: Preoperative study from 04/12/2016 FINDINGS: Post bilateral total knee arthroplasties since the previous study. No radiographic evidence of complication. No joint effusion. Standing alignment views: Mild lateral displacement of RIGHT mechanical axis and mild medialdisplacement of LEFT mechanical axis. IMPRESSION Post bilateral total knee arthroplasties since the previous study. No radiographic evidence of complication. No joint effusion. Standing alignment views: Mild lateral displacement of RIGHT mechanical axis and mild medialdisplacement of LEFT mechanical axis. Walter Rae MD IMG DX ORDERABLES documented in this encounter Visit Diagnoses Diagnosis Status post total replacement of right hip documented in this encounter Care Teams Nuisance Wildlife Specialist Relationship Specialty Start Date End Date Phoenix Guzmán DO [address] [place] [address] [place] [phone] PCP - General General Internal Medicine 02/20/15 documented as of this encounter
--- OUTSIDE RECORDS SUMMARY | 2023-10-23 09:07 | XMS_ITS | Encounter Summary ---
[place] [address] Care Team Providers Care Licensed Clinical Social Worker Name Role Phone Phoenix Guzmán DO Primary Care Provider [phone] Encounter Details Date Type Department Care Team (Late st Contact Info) Description 01/13/2017 Orders [place] [address] Walter Rae MD [facility] [place] [address] Status post total replacement of right hip [...] 9:15 AM EDT Office Visit Dermatology at [facility] [address] [place] [address] Dawson Broderick MD [facility] [place] [address] 07/23/2024 9:30 AM EDT Office Visit Dermatology at [facility] [address] [place] [address] Dawson Broderick MD [facility] [place] [address] documented as of this encounter Results * XR Pelvis w [...] hip documented in this encounter Care Teams Licensed Clinical Social Worker Relationship Specialty Start Date End Date Phoenix Guzmán DO [address] [place] [address] [place] [phone] PCP - General General Internal Medicine 02/20/15 documented as of this encounter
--- OUTSIDE RECORDS SUMMARY | 2023-10-23 09:08 | XMS_ITS | Encounter Summary ---
[place] [address] Care Team Providers Care Parer Name Role Phone Phoenix Guzmán DO Primary Care Provider [phone] Encounter Details Date Type Department Care Team (Latest Contact Info) Description 07/14/2016 Anti-Coag Telephone [place] [address] Ruben Sands RN Anticoagulation management encounter Social History Tobacco Use Types Packs/Day [...] as of this encounter Progress Notes * Ruben Sands, RN - 07/14/2016 10:36 AM EDT Anticoagulation Therapy Nurse Visit Gunnar Morin 1945 Surgeon: PREM Indication: DVT Prophylaxis S/P Joint Replacement Duration of Treatment: 30 days ends: 30 days (last day = 07/29/16) - After your dose on 07/29, stop the Coumadin??. ?? Therapeutic Range: 2.0-3.0 INR: 1.9 Drawn by: [facility] PHONE: [phone] FAX: [phone] Patient presents with no signs of bleeding or bruising or signs of thromboembolic events related toprimary diagnosis above. Follow-up for re- evaluation and safety of continuing anticoagulation. Bleeding: Epistaxis Black tarry stools Gingival bleeding [...] 9:15 AM EDT Office Visit Dermatology at [facility] [address] [place] [address] Dawson Broderick MD [facility] [place] [address] 07/23/2024 9:30 AM EDT Office Visit Dermatology at [facility] [address] [place] [address] Dawson Broderick MD [facility] [place] [address] documented as of this encounter Procedures Procedure Name Priority Date/Time Associated Diagnosis Comments EXTERNAL LAB HEMATOLOGY/COAG RESULTS PANEL Routine 07/14/2016 documented in this encounter Results * (ABNORMAL) Hematology / Coag External Results (07/14/2016) POC INR 1.9(A) 0.9 - 1.1 VISITING NURSE 07/14/2016 Historical Provider HEMATOLOGY ZORA SHEETS VISITING NURSE documented in this encounter Visit Diagnoses Diagnosis Anticoagulation management encounter Encounter for therapeutic drug monitoring documented in this encounter Care Teams Parer Relationship Specialty Start Date End Date Phoenix Guzmán DO [address] [place] [address] [place] [phone] PCP - General General Internal Medicine 02/20/15 documented as of this encounter
--- OUTSIDE RECORDS SUMMARY | 2023-10-23 09:08 | XMS_ITS | Encounter Summary ---
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, subsequent encounter; Encounter for therapeutic drug level monitoring ; Other specified procedure converted to open procedure Social History Tobacco Use Types Packs/Day Years [...] Dermatology at [facility] [address] [place] [phone] Dawson Broderick MD [facility] [address] [place] [address] 07/23/2024 9:30 AM EDT Office Visit Dermatology at [facility] [address] [place] [phone] Dawson Broderick MD [facility] DR [place] [address] documented as of this encounter Results * APTT (06/21/2016 8:31 AM EDT) PTT 28 25 - 35 sec [facility] Comment: The recommended therapeutic range for full dose, unfractionated heparin at [facility] is 80 ? 114 seconds. The use of the anti-Xa (heparin) level rather than the PTT is recommended for monitoring anticoagulation intensity in critically ill patients receiving unfractionated heparin by continuous IV infusion. Blood specimen (specimen) 06/21/2016 8:31 AM EDT 06/21/2016 8:47 AM EDT Narrative Resulting Agency Comment Spec In Lab Walter Rae MD HEMATOLOGY ORDERABLE S [facility] [place] [address] * Prothrombin Time (06/21/2016 8:31 AM EDT) PT 12.9 12.0 - 15.0 sec [facility] [...] be appropriate depending on clinical circumstances. INR 0.9 0.9 - 1.1 [facility] Blood specimen (specimen) 06/21/2016 8:31 AM EDT 06/21/2016 8:47 AM EDT Narrative Resulting Agency Comment Spec In Lab Walter Rae MD HEMATOLOGY ORDERABLE S [facility] [place] [address] * (ABNORMAL) Basic Metabolic Panel (non-fasting) (06/21/2016 8:31 AM EDT) Glucose Lvl 64(L) 65 - 199 mg/dL [facility] Comment:Diabetes: >=200 mg/d L plus symptoms BUN 18 10 - 20 mg/dL [facility] Creatinine 1.18 0.80 - 1.50 mg/dL [facility] Comment: Please note that the pediatric reference intervals supplied above were not validated at [facility]. Results from pediatric patients should be interpreted in conjunction to the patient's age, height and muscle mass. Sodium 140 135 - 145 mmol/L [facility] Potassium 4.5 3.5 - 5.0 mmol/L [facility] Comment: Please note: ??Patients with WBC >100,000 may have falsely elevated Potassium levels. ??For accurate Potassium quantification in these patients send serum separator tube (gold top) for subsequent determinations. ??Contact the Clinical Chemistry Laboratory if there are any questions. Chloride 99 98 - 107 mmol/L [facility] CO2 29 22 - 31 mmol/L [facility] Anion Gap 12 5 - 15 mmol/L [facility] Calcium 8.9 8.5 - 10.5 mg/dL [facility] Estimated GFR >60 >=60 [facility] Comment: This estimated GFR (eGFR) [...] the following links into your internet browser. 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
--- OUTSIDE RECORDS SUMMARY | 2023-10-23 09:08 | XMS_ITS | Encounter Summary ---
[place] [address] Care Team Providers Care Lifter Driver Name Role Phone Phoenix Guzmán DO Primary Care Provider [phone] Encounter Details Date Type Department Care Team (Late st Contact Info) Description 04/28/2016 3:00 PM EST [place] [address] Social History Tobacco Use Types Packs/Day Years [...] encounter Progress Notes * Lou Rao - 04/28/2016 3:00 PM EST Office of Care Management Initial Assessment Lou Rao reviewed record and discussed patient with Care Team. Source of Information: GUNNAR LEO Introduced self/reviewed role; services accepted. Reason for Hospitalization: RIGHT TOTAL HIP REVISION ARTHROPLASTY, COMPLETE. No past medical history on file. Hospitalizations Within the Past 30 Days: Anticipated Length Of Stay (If known): Current Decision-Making Capacity: HE IS CAPABLE OF MAKING HIS OWN MEDICAL DECISIONS. Advance Care Planning: HE HAS AN ADV DIR AND HIS AGENT IS HIS SUSSY. Current Coping/Education/Information Needs: Current Functional Ability: Functional Status Prior to Admission: HE WALKS INDEPENDENTLY WITHOUT AN ASSISTIVE DEVICE. HE IS ABLE TO DO HIS ADL WITHOUT ASSISTANCE. HE DRIVES. HE IS RETIRED. Home Environment: HE LIVES IN A 2 LEVEL HOUSE WITH 3 STEPS INTO THE HOUSE WITH A POST. THERE ARE 13STEPS TO THE SECOND FLOOR WHERE THERE BEDROOM IS BUT THE BATHROOM IS ON THE SECOND FLOOR. HE TYPICALLY STAYS ON THE MAIN LEVEL AFTER SURGERY IN THE RECLINER. HE HAS A TUB SHOWER. HE WILL BORROW A SHOWER CHAIR. Social & Family Supports/Community Resources: HIS PRIMARY CAREGIVER IS GOING TO BE SUSSY. Behavioral Health History: NONE Substance Use/Abuse: NONE Other Pertinent/Service Specific Information: NONE Health/Prescription Coverage: Primary Insurance: MEDICARE AB Secondary Insurance: [facility] Prescription Coverage: THROUGH [facility] Preferred Pharmacy: Other: NONE Primary Care Provider: Phoenix Guzmán DO [phone] Patient/Caregiver Goals of Treatment: HE WANTS TO RESUME PLAYING PICKLE BALL, RIDE 4 [place], ETC. Potential Needs for Transition of Care: Rehab/SNF: NO SELECTION [facility]: [facility] [address] [place] [phone] The patient/human resources representative has been provided a list of Home Health Agencies/DME vendors which servetheir preferred geographic area. A letter describing our affiliations was reviewed with them and they were educated about their right to choose where referrals are placed. Patient requests referral to [facility] [address] [place] [phone] Expected date of discharge: Referral routed to the [employer] Operations Specialist for matching with agency/vendor and to provide any required information. OP PT: [facility] A referral has been sent. DME: He has a 2 FWW, a walker with handle brakes and seat, crutches, canes, and high rise toilet. Dialysis: NO Community Resources: NONE Transportation: SUSSY Other: NONE Anticipated Barriers to Discharge/Special Considerations: NONE Plan: HE PREFERS TO GO HOME WITH [facility]. A member of the Care Management team will continue to monitor progress, follow for continuity of care and assist with transition of care planning. Lou Rao Pager: [phone] documented in this encounter Plan of Treatment Upcoming Encounters Date Type Department Care Team (Late st Contact Info) Description 10/31/2023 9:15 AM EDT Office Visit Dermatology at [facility] [address] [place] [address] Dawson Broderick MD [facility] DR MYKE [place] [address] 07/23/2024 9:30 AM EDT Office Visit Dermatology at [facility] [address] [place] [address] Dawson Broderick MD [facility] DR MYKE [place] [address] documented as of this encounter Visit Diagnoses Not on filedocumented in this encounter Care Teams Lifter Driver Relationship Specialty Start Date End Date Phoenix Guzmán DO [address] [place] [address] [place] [address] PCP - General General Internal Medicine 02/20/15 documented as of this encounter
--- OUTSIDE RECORDS SUMMARY | 2023-10-23 09:08 | XMS_ITS | Encounter Summary ---
[place] [address] Care Team Providers Care Forward Air Controller/Air Officer Name Role Phone Phoenix Guzmán DO Primary Care Provider [phone] Reason for Visit * Reason Comments Aftercare Of Tjr Right ELZBIETA Rev 7 Encounter Details Date Type Department Care Team (Late st Contact Info) Description 07/28/2016 10:50 AM EDT [place] [address] Walter Rae MD [facility] [place] [address] Status post total replacement of right hip; [...] Sign Reading Time Taken Comments Blood Pressure 115/70 07/28/2016 10:31 AM EDT Pulse 68 07/28/2016 10:31 AM EDT Temperature 37 ??C (98.6 ??F) 07/28/2016 10:31 AM EDT Respiratory Rate - - Oxygen Saturation - - Inhaled Oxygen Concentration - - Weight 132.9 kg (293 lb) 07/28/2016 10:31 AM EDT stated Height 182.9 cm (6') 07/28/2016 10:31 AM EDT sta briana Body Mass Index 39.74 07/28/2016 10:31 AM EDT documented in this encounter Progress Notes * Thania Moreno PA - 07/28/2016 10:50 AM EDT Arthroplasty/Orthopaedic History: 1. Right ELZBIETA - 11/06/1996 - Dr. Quintanilla 2. Left TKA - 09/07/15 - Dr. Rae 3. Right ELZBIETA revision w/ head-liner exchange - 06/29/16 - Dr. Rae HPI: Gunnar Morin is a very pleasant 71 y.o. year-old male and is now 4 weeks post right total hip revision. He has been doing very well. He has no pain or complaints regarding the hip. He is not taking any pain medication or APAP. He has not needed to ambulate with any assistive devices. He hasfinished with both inpatient and outpatient PT. He denies any problems with the incision. He also wants to talk about a right TKA for his right knee pain secondary to known severe OA. ROS: Denies: fever, chills, night sweats, nausea, or vomiting BP 115/70 Pulse 68 Temp 37 ??C (98.6 ??F) (Oral) Ht 182.9 cm (6') Comment: stated Wt (!) 132.9 kg (293 lb) Comment: stated BMI 39.74 kg/m2 Physical Exam: Well-appearing male in no acute distress. Alert and Oriented x 3 and answers all questions appropriately. The incision is well healed, with no signs of infection. Hip Exam: Right Leg length: Longer leg: equal Limb Length discrepancy: 0cm Motion: Flexion contracture: 0 Total degrees of Flexion:110 Total degrees of Abduction:45 Total degrees of Ext Rotation: 30 Total degrees of Internal Rotation: 10 Gait Abnormality: Normal Pulses Palpable: Right PT: Yes Right DP:Yes Motor/Sensory: Right Distal Motor: Normal Distal Sensory: Normal Hip Abductors 5 Trendelenburg test: negative X-RAYS: Multiple radiographic views were obtained at my request and reviewed with the patient. X-rays show a well-placed prosthesis with no evidence of fracture, subsidence, loosening, or periprosthetic complication. Questionnaire Responses: [facility] Surgical Postop Visit 07/28/2016 PROMIS-10 General Health Very Good PROMIS-10 Quality of Life Very Good PROMIS-10 Physical Health Very Good PROMIS-10 Mental Health Very Good PROMIS-10 Social Activity Very Good PROMIS-10 Everyday Activities Mostly PROMIS-10 Pain 0 -No Pain PROMIS-10 Fatigue Mild PROMIS-10 Social Roles Very Good PROMIS-10 Anxious or Depressed Never PROMIS PHYSICAL HEALTH SCORE 54.1 PROMIS MENTAL HEALTH SCORE 56 HOOS JR Scores 92.34 Problems with surgical incision/wound after surgery No Gone to ER since knee surgery No Admitted to hospital since recent ortho surgery No Additional surgery on same body part Yes [facility] Surgeon luis eduardo Date of surgery 11/05/1996 Reason for surgery badhip ELZBIETA Grade 9 Pain in other HIP None Back pain at this moment None Satisfaction with Treatment Satisfied Choose Same Treatment Again Definitely yes Orthopeadics [facility] Response 07/28/2016 HOOS JR Scores 92.34 Spine [facility] Response 07/28/2016 HOOS JR Scores 92.34 ASSESSMENT/PLAN: Mr. Morin is a 71 y.o. year old male status post right total hip revision. He is doing very well and is happy with his hip. He can progress all activities as tolerated. We reviewed dental prophylaxis and monitoring for any signs of infection. Given his severe right knee OA and having exhausted conservative treatment options, we will proceed with a right TKA. However, Dr. Rae did discuss with him that we wait 3 months after this surgery before operating on the right knee, so we can do this at the end of September. * Walter Rae MD - 07/28/2016 10:50 AM EDT I have seen the patient and reviewed Thania Moreno PAC history/physical and I agree with the details as written. The assessment and plan were formulated in discussion with me and I agree with them as documented. 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 Patient is doing very well. No instability incision is well-healed. Range of motion is smooth. He is using no assistive devices. X- rays today show reconstitution of bone in the medial aspect of the acetabulum. No other significant ill findings on exam or radiographs. His biggest issue at this point is his right knee. He's done well with a left total knee arthroscopy. At this point he like to pursue right total knee arthroplasty as soon as possible. I think we should wait at least 6-8 more weeks after his recent hip surgery for stability reasons. He is in agreement with this plan. Booking was placed today. Risks and benefits reviewed. Operative consent day of surgery. Preoperative evaluation needs to be done prior surgery. Walter Rae MD, MS 07/28/2016 documented in this encounter Plan of Treatment Upcoming Encounters Date Type Department Care Team (Late st Contact Info) Description 10/31/2023 9:15 AM EDT Office Visit Dermatology at [facility] [address] [place] [address] Dawson Broderick MD [facility] [place] [place] [address] 07/23/2024 9:30 AM EDT Office Visit Dermatology [facility] [address] [place] [address] Dawson Broderick MD [facility] [place] [place] [address] documented as of this encounter Procedures Procedure Name Priority Date/Time Associated Diagnosis Comments TOTAL KNEE ARTHROPLASTY Routine 07/29/19 17 10:52 AM EDT Status post total replacement of right hip documented in this encounter Results * XR Knee Standing Alignment AP Lat Parmelee Right (10/20/2016 9:41 AM EDT) Anatomical Region [...] axis. Walter Rae MD IMG DX ORDERABLES * APTT (08/23/2016 9:35 AM EDT) PTT 28 25 - 35 sec [facility] Comment: The recommended therapeutic range for [...] MD HEMATOLOGY ORDERABLE S Performing Organization Address [facility] de Phone Number [facility] [place] [address] * Prothrombin Time (08/23/2016 9:35 AM EDT) PT 13.2 12.0 - 15.0 sec [facility] Comment: An INR <2.0 indicates [...] clinical circumstances. INR 1.0 0.9 - 1.1 [facility] Blood specimen (specimen) 08/23/2016 9:35 AM EDT 08/23/2016 10:18 AM EDT Narrative Resulting Agency Comment Spec In Lab Walter Rae MD HEMATOLOGY ORDERABLE S Performing Organization Address [facility] de Phone Number [facility] [place] [address] * (ABNORMAL) Basic Metabolic Panel (non-fasting) (08/23/2016 9:35 AM EDT) Glucose Lvl 80 65 - 199 mg/dL [facility] Comment:Diabetes: >=200 mg/d L plus symptoms BUN 19 10 - 20 mg/dL [facility] Creatinine 1.21 0.80 - 1.50 mg/dL [facility] Comment: Please note that the pediatric reference intervals supplied above were not validated at [facility]. Results from pediatric patients should be interpreted in conjunction to the patient's age, height and muscle mass. Sodium 139 135 - 145 mmol/L [facility] Potassium 4.7 3.5 - 5.0 mmol/L [facility] Comment: Please note: ??Patients with WBC >100,000 may have falsely elevated Potassium levels. ??For accurate Potassium quantification in these patients send serum separator tube (gold top) for subsequent determinations. ??Contact the Clinical Chemistry Laboratory if there are any questions. Chloride 98 98 - 107 mmol/L [facility] CO2 27 22 - 31 mmol/L [facility] Anion Gap 14 5 - 15 mmol/L [facility] Calcium 9.3 8.5 - 10.5 mg/dL [facility] Estimated GFR 59(L) >=60 [facility] Comment: This estimated GFR [...] the following links into your internet browser. [email or web address] [email or web address] Blood specimen (specimen) 08/23/2016 9:35 AM EDT 08/23/2016 10:18 AM EDT Narrative Resulting Agency Comment Spec In Lab Walter Rae MD CHEMISTRY ORDERABLES [facility] [place] [address] * EKG 12 Lead (08/23/2016 9:29 AM EDT) Ventricular rate 69 BPM MUSE SYSTEM Atrial Rate 69 BPM MUSE SYSTEM P-R Interval 180 ms MUSE SYSTEM QRS Duration 102 ms MUSE SYSTEM Q-T Interval 386 ms MUSE SYSTEM QTC Calculated (Bezet) 413 ms MUSE SYSTEM Calculated P [place] 25 degrees MUSE SYSTEM Calculated R [place] 32 degrees MUSE SYSTEM Calculated T [place] -7 degrees MUSE SYSTEM INTERPRETATION Normal sinus [...] right hip Pain of right lower extremity Status post total replacement of right hip documented in this encounter Care Teams Forward Air Controller/Air Officer Relationship Specialty Start Date End Date Phoenix Guzmán DO [address] [place] [address] [place] [address] PCP - General General Internal Medicine 02/20/15 documented as of this encounter
--- OUTSIDE RECORDS SUMMARY | 2023-10-23 09:08 | XMS_ITS | Encounter Summary ---
[place] [address] Care Team Providers Care Admission Specialist Name Role Phone Phoenix Guzmán Primary Care Provider [phone] Encounter Details Date Type Department Care Team (Late st Contact Info) Description 06/21/2016 8:00 AM EDT Clinical [place] [id number] Social History Tobacco Use Types Packs/Day Years [...] Taken Comments Blood Pressure - - Pulse 84 06/21/2016 7:46 AM EDT Temperature - - Respiratory Rate - - Oxygen Saturation 97% 06/21/2016 7:46 AM EDT Inhaled Oxygen Concentration - - Weight 133.1 kg (293 lb 6.4 oz) 06/21/2016 7:46 AM EDT Height 182.9 cm (6') 06/21/2016 7:46 AM EDT Body Mass Index 39.79 06/21/2016 7:46 AM EDT documented in this encounter Progress Notes * Sanam Fernando RN - 06/21/2016 8:00 AM EDT PAT questionnaire reviewed with patient while in Pre Admission testing. Patient states he had a coronary stent placed [place] at [facility] [place] July of [place]. Pre- operative instruction booklet reviewed. Patient verbalizes a good understanding of all information reviewed. PLAN: Testing: Labs, T&S Special medication instructions: Procedure date: 06-29-16 Dr. Rae documented in this encounter Plan of Treatment Upcoming Encounters Date Type Department Care Team (Late st Contact Info) Description 10/31/2023 9:15 AM EDT Office Visit Dermatology at [facility] [address] [place] [address] Dawson Broderick MD [facility] DR MYKE [place] [address] 07/23/2024 9:30 AM EDT Office Visit Dermatology at [facility] [address] [place] [address] Dawson Broderick MD [facility] [place] [address] documented as of this encounter Visit Diagnoses Not on filedocumented in this encounter Care Teams Admission Specialist Relationship Specialty Start Date End Date Phoenix Guzmán DO [address] [place] [address] [place] [phone] PCP - General General Internal Medicine 02/20/15 documented as of this encounter
--- OUTSIDE RECORDS SUMMARY | 2023-10-23 09:08 | XMS_ITS | Encounter Summary ---
[place] [address] Care Team Providers Care Internet Marketing Intern Name Role Phone Phoenix Guzmán DO Primary Care Provider [phone] Encounter Details Date Type Department Care Team (Late st Contact Info) Description 07/20/2016 Orders [place] [address] Walter Rae MD [facility] [place] [address] Status post total replacement of right hip [...] Dermatology at [facility] [address] [place] [address] Dawson Broderick MD [facility] [place] [address] 07/23/2024 9:30 AM EDT Office Visit Dermatology at [facility] [address] [place] [address] Dawson Broderick MD [facility] [place] [address] documented as of this encounter Results * XR Pelvis w AP & Lat Hip Right (07/28/2016 9:28 AM EDT) Anatomical Region Laterality Modality Pelvis, Hip Right Digital Radiogra phy Impressions 07/28/2016 9:41 AM EDT No change in appearance of right total hip arthroplasty. Narrative 07/28/2016 9:41 AM EDT EXAMINATION: XR PELVIS W AP AND LAT HIP RIGHT CLINICAL HISTORY: check status of healing/hardware TECHNIQUE: AP pelvis and lateral right hip. COMPARISON: 06/29/2016 FINDINGS: The previously seen cutaneous michoacano and postoperative air around the RIGHT hip joint have disappeared. There is no other interval change, specifically in the position of the acetabular and femoral components of the right total hip arthroplasty. No periprosthetic fracture or significant new periprosthetic lucency is seen. Procedure Note Haris Aguirre MD - 07/28/2016 EXAMINATION: XR PELVIS W AP AND LAT HIP RIGHT CLINICAL HISTORY: check status of healing/hardware TECHNIQUE: AP pelvis and lateral right hip. COMPARISON: 06/29/2016 FINDINGS: The previously seen cutaneous michoacano and postoperative air around theRIGHT hip joint have disappeared. There is no other interval change, specifically inthe position of the acetabular and femoral components of the right total hip arthroplasty. No periprosthetic fracture or significant newperiprosthetic lucency is seen. IMPRESSION No change in appearance of right total hip arthroplasty. 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
--- OUTSIDE RECORDS SUMMARY | 2023-10-23 09:08 | XMS_ITS | Encounter Summary ---
[place] [address] Care Team Providers Care Trust Vault Clerk Name Role Phone Phoenix Guzmán DO Primary Care Provider [phone] Encounter Details Date Type Department Care Team (Late st Contact Info) Description 07/28/2016 9:30 AM EDT Notes [place] [address] Social History Tobacco Use Types Packs/Day Years [...] encounter Progress Notes * Lou Rao - 07/28/2016 9:30 AM EDT I met with patient to hear about his patient experience for his total joint replacement surgery. Heexpressed that the care has been great. He cannot see the need to improve if we stay along the lines we are going now. The only area of improvement that would like to see is getting a hold of people.The hold times to call ortho can be long and if he leaves a message he there is a delay in having his call returned. I encouraged him to call with any further questions or concerns. documented in this encounter Plan of Treatment Upcoming Encounters Date Type Department Care Team (Late st Contact Info) Description 10/31/2023 9:15 AM EDT Office Visit Dermatology at [facility] [address] [place] [address] Dawson Broderick MD [facility] [place] [address] 07/23/2024 9:30 AM EDT Office Visit Dermatology at [facility] [address] [place] [address] Dawson Broderick MD [facility] [address] [place] [place] [address] documented as of this encounter Visit Diagnoses Not on filedocumented in this encounter Care Teams Trust Vault Clerk Relationship Specialty Start Date End Date Phoenix Guzmán DO [address] [place] [address] [place] [address] PCP - General General Internal Medicine 02/20/15 documented as of this encounter
--- OUTSIDE RECORDS SUMMARY | 2023-10-23 09:08 | XMS_ITS | Encounter Summary ---
Author Organization [facility] [place] [address] Care Team Providers Care Wind Turbine Erector Name Role Phone Phoenix Guzmán DO Primary Care Provider [phone] Encounter Details Date Type Department Care Team (Latest Contact Info) Description 07/28/2016 9:18 AM EDT - 07/28/2016 11:59 PM EDT Hospital Encounter XRay at [address] [place] [address] Walter Rae MD [facility] [place] [address] Status post total replacement of right hip [...] 04/13/2015 warfarin (COUMADIN) 5 mg Tablet Take 1.5 tablets by mouth every evening. Your dose may vary depending on your INR value. 20 tablet 07/18/2016 08/23/2016 naproxen (NAPROSYN) 500 mg Tablet Take 1 tablet by mouth 2 times daily (with meals) for 41 days. 82 tablet 06/30/2016 08/10/2016 omeprazole (PRILOSEC) 20 mg Capsule, Delayed Release(E.C.) Take 1 capsule by mouth daily for 41 days. 41 capsule 06/30/2016 08/10/2016 pravastatin (PRAVACHOL) 10 mg Tablet Take 1 tablet by mouth nightly. 30 tablet 08/19/2015 02/03/2017 aspirin 81 mg EC tablet Take 81 mg by mouth daily. 09/22/2016 documented as of this encounter Plan of Treatment Upcoming Encounters Date Type Department Care Team (Late st Contact Info) Description 10/31/2023 9:15 AM EDT Office Visit Dermatology at [facility] [address] [place] [address] Dawson Broderick MD [facility] [place] [address] 07/23/2024 9:30 AM EDT Office Visit Dermatology at [facility] [address] [place] [address] Dawson Broderick MD [facility] [place] [address] documented as of this encounter Procedures Procedure Name Priority Date/Time Associated Diagnosis Comments XR PELVIS AND HIP 2 VIEWS RIGHT Routine 07/28/2016 9:28 AM EDT Status post total replacement of [...] hip documented in this encounter Care Teams Wind Turbine Erector Relationship Specialty Start Date End Date Phoenix Guzmán DO [address] [place] [address] [place] [address] PCP - General General Internal Medicine 02/20/15 documented as of this encounter
--- OUTSIDE RECORDS SUMMARY | 2023-10-23 09:08 | XMS_ITS | Encounter Summary ---
[place] [address] Care Team Providers Care Gas Usage Meter Clerk Name Role Phone Phoenix Guzmán DO Primary Care Provider [phone] Reason for Visit * Reason Comments Right Hip Pain right ELZBIETA REVISION Encounter Details Date Type Department Care Team (Late st Contact Info) Description 04/28/2016 2:20 PM EST Office [place] [address] Walter Rae MD [facility] [place] [address] Mechanical loosening of internal right hip prosthetic joint, sequela Social History Tobacco Use Types Packs/Day Years [...] Sign Reading Time Taken Comments Blood Pressure 138/88 04/28/2016 1:53 PM EST Pulse 99 04/28/2016 1:53 PM EST Temperature - - Respiratory Rate - - Oxygen Saturation - - Inhaled Oxygen Concentration - - Weight 127 kg (280 lb) 04/28/2016 1:53 PM EST Height 182.9 cm (6') 04/28/2016 1:53 PM EST Body Mass Index 37.97 04/28/2016 1:53 PM EST documented in this encounter Progress Notes * Walter Rae MD - 04/28/2016 2:20 PM EST Arthroplasty History/Previous Hip Surgery: 1. Right ELZBIETA. Dr. Quintanilla. 11/06/1996 [address]. Dr. Rae. 09/07/2015. This note is recorded by SEUN SANDOVAL RN acting as a scribe for Dr. Yessica Rae. PREOPERATIVE VISIT Interval History: Gunnar Morin is a pleasant 71 y.o. year old male with severe osteoarthritis of the hip being seen today to discuss a RIGHT total revision hip arthroplasty in the form of a head and liner exchange and bone grafting . His history and physical exam were reviewed in detail. His history in regards to his hip was once again discussed and is outlined in a previous note. He states the hip pain and disability is worse since their previous visit. They have reviewed their options and at this point are expressing a desire to proceed with surgery. He does not endorse a history of DVT/PE or clotting Physical Exam: Exam is previously documented in my note and is essentially unchanged. Clinical Leg Length Discrepancy - 0 cm Inspection of his skin in the intertriginous groin fold on the operative side demonstrates No skin breakdown. Significant Medical Comorbidities Patient Active Problem List Diagnosis Code ??? 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 Osteoarthritis of both knees M17.0 ??? Bilateral knee pain M25.561, M25.562 ??? Arthritis of knee M19.90 ??? CAD (coronary artery disease) I25.10 ??? DJD (degenerative joint disease) of knee M17.9 ??? Obesity, Class II, BMI 35-39.9 E66.01 ??? 09/07/2015 S/P Left total knee arthroplasty (Dr. Rae) Z96.659 ??? H/O total hip arthroplasty Z96.649 VITALS: BP Readings from Last 1 Encounters: 04/28/16 138/88 Pulse Readings from Last 1 Encounters: 04/28/16 99 Height: 182.9 cm (6') Weight - Scale: (!) 127 kg (280 lb) Body mass index is 37.97 kg/(m^2). Relevant Lab Studies Lab Results Component Value Date WBC 5.2 04/28/2016 HGB 15.4 04/28/2016 HCT 45.2 04/28/2016 PLATELET 258 04/28/2016 CREATININE 1.27 04/28/2016 BUN 23 (H) 04/28/2016 NA 141 04/28/2016 K 4.6 04/28/2016 INR 1.0 04/28/2016 No results for input(s): HA1C in the last 7068 hours. No results for input(s): ALBUMIN in the last 168 hours. Estimated Creatinine Clearance: 75.6 mL/min (based on Cr of 1.27). A Neg Component Value Date/Time SPGRAVITYUA 1.025 06/25/2015 1210 PHUADIP 5.0 06/25/2015 1210 PROTEINUADIP Negative 06/25/2015 1210 GLUCOSEU Negative 06/25/2015 1210 KETONESUA 5 (A) 06/25/2015 1210 UROBILIUADIP Normal 06/25/2015 1210 BLOODUADIP Negative 06/25/2015 1210 NITRATEUA Negative 06/25/2015 1210 LEUKOESTERUA Small (A) 06/25/2015 1210 WBCUA 16 (H) 06/25/2015 1210 BILIRUBINUA Negative 06/25/2015 1210 EKG: normal EKG, normal sinus rhythm, unchanged from previous tracings. Questionnaire Response [facility] Surgical Preop Visit 04/28/2016 PROMIS-10 General Health Very Good PROMIS-10 Quality of Life Very Good PROMIS-10 Physical Health Very Good PROMIS-10 Mental Health Very Good PROMIS-10 Social Activity Very Good PROMIS-10 Everyday Activities Moderately PROMIS-10 Pain 5 PROMIS-10 Fatigue Mild PROMIS-10 Social Roles Good PROMIS-10 Anxious or Depressed Never PROMIS PHYSICAL SCORE (range 16-68) 44.9 PROMIS MENTAL SCORE (range 21-68) 56 Treatments Tried Regular exercise Prior Surgery hipsurgery 1996 HOOS JR Scores 67.52 ELZBIETA Grade 5 Pain in other HIP None Back pain at this moment None Health Literacy Quite a bit [facility] Response 04/28/2016 HOOS JR Scores 67.52 Spine [facility] Response 04/28/2016 HOOS JR Scores 67.52 Radiographic evidence: 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 Assessment and Plan: This is a pleasant 71 y.o. year-old male who presents for a preoperative appointment today for RIGHT hip pain with polywear and osteolysis. I had a long discussion with him regarding the risks and benefits of total hip revision arthroplasty. We then discussed in great detail the risks associated with the proposed surgery. These included but were not limited to: bleeding (which may or may not require transfusion), infection, deep venous thrombosis, pulmonary embolus, prosthetic failure, loosening, prosthetic fracture, femur or pelvic fracture, dislocation, leg-length inequality, persistent pain, need for revision, medical complications (including cardiac, respiratory and neurologic complications), anaesthetic complications, and . The patient seemed to understand the nature of this procedure's risks. The history and physical is pending and as long as there are no issues with that we will proceed asplanned. I reviewed the labs and did not [...] NOT refuse a blood transfusion. Opioid PDMP 04/28/2016 MD PDMP Query Date 04/28/2016 Gunnar Morin will be prescribed a [...] of DVT or PE: No Hypercoaguable state?: No History of bleeding disorder?: No GI bleed [...] subsequently obtained for a RIGHT total hip revision arthroplasty with head and liner exchange and bone grafting. We discussed using Celebrex while in house. We discussed using Naprosyn for 6 weeks after surgery for post-operative pain management. I ensured that the patient has the needed samples of hibiclens wash to use both the night before and the morning of the anticipated surgery. I have personally evaluated the patient and agree with the above note as recorded by SEUN SANDOVAL RN. Yessica Rae MD 04/28/2016 The below has been copied from a prior note: Mr. Morin is a 70 y.o. year old male 4 weeks post-op and doing well. Continue weightbearing as tolerated and working on range of motion, and we will see him back in 8 weeks for repeat examination. No X-rays will be needed at that time. Patient may return to normal activities as his pain and function allow. ?? We discussed the appropriate precautions surrounding dental prophylaxis.?? I stressed that he should call the office for a prescription prior to any dental work for the lifetime of the joint replacement.?? We also discussed maintaining good foot care and giving prompt attention to any source of infection throughout the body including foot ulcers and urinary tract infections. documented in this encounter Plan of Treatment Upcoming Encounters Date Type Department Care Team (Late st Contact Info) Description 10/31/2023 9:15 AM EDT Office Visit Dermatology at [facility] [address] [place] [address] Dawson Broderick MD [facility] [address] [place] [address] 07/23/2024 9:30 AM EDT Office Visit Dermatology at [facility] [address] [place] [address] Dawson Broderick MD [facility] [place] [address] documented as of this encounter Visit Diagnoses Diagnosis Mechanical loosening of internal right hip prosthetic joint, sequela documented in this encounter Care Teams Gas Usage Meter Clerk Relationship Specialty Start Date End Date Phoenix Guzmán DO [address] [place] [address] [place] [address] PCP - General General Internal Medicine 02/20/15 documented as of this encounter
--- OUTSIDE RECORDS SUMMARY | 2023-10-23 09:08 | XMS_ITS | Encounter Summary ---
[place] [address] Care Team Providers Care Special Education Preschool Teacher Name Role Phone Phoenix Guzmán DO Primary Care Provider [phone] Encounter Details Date Type Department Care Team (Latest Contact Info) Description 06/21/2016 8:00 AM EDT [place] [address] Periprosthetic osteolysis of internal prosthetic right hip [...] 9:15 AM EDT Office Visit Dermatology at [facility] [address] [place] [address] Dawson Broderick MD [facility] [address] [place] [address] 07/23/2024 9:30 AM EDT Office Visit Dermatology at [facility] [address] [place] [address] Dawson Broderick MD [facility] [address] [place] [address] documented as of this encounter Procedures Procedure Name Priority Date/Time Associated Diagnosis Comments ABORH RECHECK STATUS Routine 06/21/2016 8:31 AM EDT HEMOGRAM Routine 06/21/2016 8:31 AM EDT 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, subsequent encounter DIFFERENTIAL, AUTOMATED Routine 06/21/2016 8:31 AM EDT 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, subsequent encounter TYPE AND SCREEN, SDP (FUTURE SURGERY, [facility] SAME DAY PROGRAM ONLY) Routine 06/21/2016 8:31 AM EDT 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, subsequent encounter ABO/RH TYPING Routine 06/21/2016 8:31 AM EDT 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, subsequent encounter APTT Routine 06/21/2016 8:31 AM EDT Other specified procedure converted to open procedure 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, subsequent encounter PROTHROMBIN TIME Routine 06/21/2016 8:31 AM EDT Encounter for therapeutic drug level monitoring 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, subsequent encounter CBC (WITH DIFF) Routine 06/21/2016 8:31 AM EDT 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, subsequent encounter ANTIBODY SCREEN Routine 06/21/2016 8:31 AM EDT 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, subsequent encounter BASIC METABOLIC PANEL (NON-FASTING) Routine 06/21/2016 8:31 AM EDT 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, subsequent encounter documented in this encounter Results * ABORH Recheck Status (06/21/2016 8:31 AM EDT) ABORH Type Recheck Completed [facility] Blood specimen (specimen) 06/21/2016 8:31 AM EDT 06/21/2016 8:34 AM EDT Narrative Resulting Agency Comment Spec In Lab Walter Rae MD BLOOD BANK LAB ORDER ADRIA [facility] [place] [address] * Differential, Automated (06/21/2016 8:31 AM EDT) Neutrophils % 53.9 % [facility] Neutr Abs (ANC) 2.50 1.70 - 6.10 x10(3)/[facility] Lymphocytes % 28.9 % [facility] Lymphocytes Abs 1.3 0.9 - 3.2 x10(3)/[facility] Monocytes % 12.5 % [facility] Monocyte Abs 0.6 0.3 - 0.9 x10(3)/[facility] Eosinophils % 3.4 % [facility] Eosinophils Abs 0.2 0.0 - 0.4 x10(3)/[facility] Basophils % 0.9 % [facility] Basophils Abs 0.0 0.0 - 0.1 x10(3)/[facility] Immature Gran % 0.40 % [facility] Comment: Immature granulocytes(IG's)percentage and absolute count will include metamyelocytes, myelocytes, and promyelocytes. Blood smears from CBCs yielding IG's will be scanned manually for concordance. If this scan disagrees with the automated IG or if promyelocytes are noted, a manual differential will be performed. Geovanna Gran Abs 0.02 0.00 - 0.04 x10(3)/[facility] Blood specimen (specimen) 06/21/2016 8:31 AM EDT 06/21/2016 8:47 AM EDT Narrative Resulting Agency Comment Spec In Lab Walter Rae MD HEMATOLOGY ORDERABLE S [facility] [place] [address] * (ABNORMAL) Hemogram (06/21/2016 8:31 AM EDT) WBC 4.6 4.0 - 9.5 x10(3)/[facility] RBC 4.77 4.58 - 5.54 x10(6)/[facility] Hemoglobin 14.8 13.7 - 16.5 gm/dL [facility] Hematocrit 45.2 40.5 - 48.5 % [facility] MCV 94.8(H) 82.9 - 93.1 [facility] MCH 31.0 27.5 - 32.1 pg [facility] MCHC 32.7 32.0 - 35.7 gm/dL [facility] Platelets 248 145 - 357 x10(3)/[facility] RDWSD 44.6 36.0 - 45.0 [facility] RDWCV 12.7 11.4 - 13.8 % [facility] MPV 9.9 7.6 - 12.9 [facility] nRBC % Auto 0.0 % [facility] nRBC Abs Auto 0.000 0.000 - 0.000 x10(3)/[facility] Blood specimen (specimen) 06/21/2016 8:31 AM EDT 06/21/2016 8:47 AM EDT Narrative Resulting Agency Comment Spec In Lab Walter Rae MD HEMATOLOGY ORDERABLE S Performing Organization Address City/[facility]/ZIP Co de Phone Number [facility] [place] [address] * Antibody screen (06/21/2016 8:31 AM EDT) Ab Screen Interp Negative [facility] Expires at [id number] on: 07/02/2016 [facility] Blood specimen (specimen) 06/21/2016 8:31 AM EDT 06/21/2016 8:34 AM EDT Narrative Resulting Agency Comment Spec In Lab Walter Rae MD BLOOD BANK LAB ORDER ADRIA Performing Organization Address [facility]/ZIP Co de Phone Number [facility] [place] [address] * ABO/Rh Typing (06/21/2016 8:31 AM EDT) ABORH Type A Neg [facility] Blood specimen (specimen) 06/21/2016 8:31 AM EDT 06/21/2016 8:34 AM EDT Narrative Resulting Agency Comment Spec In Lab Walter Rae MD BLOOD BANK LAB ORDER ADRIA Performing Organization Address City/[facility]/ZIP Co de Phone Number [facility] [place] [address] * APTT (06/21/2016 8:31 AM EDT) PTT 28 25 - 35 sec [facility] Comment: The recommended therapeutic range for full dose, unfractionated heparin at [facility] is 80 ? 114 seconds. The use of the anti-Xa (heparin) level rather than the PTT is recommended for monitoring anticoagulation intensity in critically ill patients receiving unfractionated heparin by continuous IV infusion. Blood specimen (specimen) 06/21/2016 8:31 AM EDT 06/21/2016 8:47 AM EDT Narrative Resulting Agency Comment Spec In Lab Walter Rae MD HEMATOLOGY ORDERABLE S Performing Organization Address [facility] Co de Phone Number [facility] [place] [address] * Prothrombin Time (06/21/2016 8:31 AM EDT) PT 12.9 12.0 - 15.0 sec [facility] Comment: An INR <2.0 [...] clinical circumstances. INR 0.9 0.9 - 1.1 [facility] Blood specimen (specimen) 06/21/2016 8:31 AM EDT 06/21/2016 8:47 AM EDT Narrative Resulting Agency Comment Spec In Lab Walter Rae MD HEMATOLOGY ORDERABLE S Performing Organization Address [facility] Co de Phone Number [facility] [place] [address] * (ABNORMAL) Basic Metabolic Panel (non-fasting) (06/21/2016 8:31 AM EDT) Glucose Lvl 64(L) 65 - 199 mg/dL [facility] Comment:Diabetes: >=200 mg/d L plus symptoms BUN 18 10 - 20 mg/dL [facility] Creatinine 1.18 0.80 - 1.50 mg/dL [facility] Comment: Please note that the pediatric reference intervals supplied above were not validated at [facility]. Results from pediatric patients should be interpreted in conjunction to the patient's age, height and muscle mass. Sodium 140 135 - 145 mmol/L [facility] Potassium 4.5 3.5 - 5.0 mmol/L [facility] Comment: Please note: ??Patients with WBC >100,000 may have falsely elevated Potassium levels. ??For accurate Potassium quantification in these patients send serum separator tube (gold top) for subsequent determinations. ??Contact the Clinical Chemistry Laboratory if there are any questions. Chloride 99 98 - 107 mmol/L [facility] CO2 29 22 - 31 mmol/L [facility] Anion Gap 12 5 - 15 mmol/L [facility] Calcium 8.9 8.5 - 10.5 mg/dL [facility] Estimated GFR >60 >=60 [facility] Comment: This estimated GFR [...] the following links into your internet browser. 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
--- OUTSIDE RECORDS SUMMARY | 2023-10-23 09:08 | XMS_ITS | Encounter Summary ---
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 CC: Gunnar Morin is a 71 y.o. male with the following problems and medications that is being seen in the clinic for consultation at the request of his surgeon Dr. Walter Rae for preoperative risk stratification and management recommendations in anticipation of revision total right hip arthrop lasty for symptomatic failure. HPI - Pain - Location - right hip, Quality - aching, Onset - gradual, Duration - several months, Intensity - moderate Aggravating factors - standing, walking, stepping, bending, rotation at the hip Alleviating factors - NSAID, APAP, rest. Does have satisfaction with recent left knee replacement andis going to have right knee replaced after recovery from current hip revision. Patient Active Problem List Diagnosis Code ??? [...] Z96.659 ??? H/O total hip arthroplasty Z96.649 Current Outpatient Prescriptions Medication Sig Dispense Refill ??? ibuprofen (ADVIL;MOTRIN) 200 mg Tablet Take 200 mg by mouth every 6 hours as needed for Pain. ??? acetaminophen (TYLENOL) 500 mg Tablet Take 2 tablets by mouth every 8 hours. Take every 8 hoursfor 10 days after surgery. Then may take if needed per package insert. Do not take more than 3,000 mg of acetaminophen in 24 hours. ??? carvedilol (COREG) 6.25 mg Tablet Take 6.25 mg by mouth 2 times daily (with meals). ??? pravastatin (PRAVACHOL) 10 mg Tablet Take 1 tablet by mouth nightly. 30 tablet 0 ??? nitroGLYcerin (NITROSTAT) 0.4 mg Tablet, Sublingual Place 1 tablet under the tongue every 5 minutes as needed for Chest pain. 90 tablet 12 ??? clindamycin (CLEOCIN) 150 mg Capsule See Admin Instructions. TAKE 2 CAPSULES ONE HOUR BEFORE DENTAL PROCEDURES ??? aspirin 81 mg EC tablet Take 81 mg by mouth daily. Current Facility-Administered Medications Medication Dose Route Frequency Provider Last Rate Last Dose ??? [START ON 04/29/2016] mupirocin (BACTROBAN) 2 % ointment Topical (Top) BID Walter Rae MD Social History Occupational History ??? Not on file. Social History Main Topics ??? Smoking status: Former Smoker Quit date: 01/11/2001 ??? Smokeless tobacco: Never Used ??? Alcohol use Yes Comment: occasional ??? Drug use: No ??? Sexual activity: Not on file Family History Problem Relation Age of Onset ??? Cancer Mother Review of Systems: Review of Systems Constitutional: Negative for chills, diaphoresis, fever and unexpected weight change. HENT: Negative for mouth sores and nosebleeds. Eyes: Negative for photophobia and visual disturbance. Respiratory: Negative for apnea, cough and shortness of breath. Cardiovascular: Negative for chest pain, palpitations and leg swelling. Gastrointestinal: Negative for abdominal pain, anal bleeding and blood in stool. Endocrine: Negative for polydipsia and polyphagia. Genitourinary: Positive for frequency. Negative for dysuria and hematuria. Notes improved frequency and nocturia none for 6 hours. Musculoskeletal: Positive for gait problem and joint swelling. Skin: Negative for pallor and rash. Allergic/Immunologic: Negative for environmental allergies and immunocompromised state. Neurological: Negative for speech difficulty, light-headedness and headaches. Hematological: Negative for adenopathy. Bruises/bleeds easily. Psychiatric/Behavioral: Negative for confusion, decreased concentration and dysphoric mood. Allergies: Allergies Allergen Reactions ??? Amoxicillin Trihydrate Hives Physical Exam: Last Set of Vitals and Range over past 24 hours: Last value Range last 24 hrs Temperature Temp: -- Heart Rate Heart Rate: [98-99] Blood Pressure BP: (138)/(88) Respiratory Rate Resp: -- SpO2 SpO2: [94 %] Estimated body mass index is 37.97 kg/(m^2) as calculated from the following: Height as of an earlier encounter on 04/28/16: 182.9 cm (6'). Weight as of an earlier encounter on 04/28/16: 127 kg (280 lb). Physical Exam Constitutional: He is oriented to person, place, and time. He appears well- developed. No distress. HENT: Head: Normocephalic and atraumatic. Eyes: Conjunctivae are normal. No scleral icterus. Neck: Neck supple. No tracheal deviation present. Cardiovascular: Normal rate, regular rhythm and normal heart sounds. Exam reveals no gallop and no friction rub. No murmur heard. Pulmonary/Chest: Effort normal and breath sounds normal. No stridor. No respiratory distress. He has no wheezes. He has no rales. Abdominal: Soft. Bowel sounds are normal. There is no tenderness. There is no rebound and no guarding. Musculoskeletal: Flexion at right hip is 95 but has severe limitation in internal rotation, external rotation to 10 causes pain in right hip and has limited abduction. Audible crepitus with extension at right knee. Neurological: He is alert and oriented to person, place, and time. Skin: Skin is warm and dry. He is not diaphoretic. Psychiatric: He has a normal mood and affect. His behavior is normal. Judgment and thought content normal. Lab Results Component Value Date WBC 5.2 04/28/2016 RBC 4.82 04/28/2016 HGB 15.4 04/28/2016 HCT 45.2 04/28/2016 MCV 93.8 (H) 04/28/2016 MCH 32.0 04/28/2016 MCHC 34.1 04/28/2016 PLATELET 258 04/28/2016 RDWCV 13.1 04/28/2016 Lab Results Component Value Date NA 141 04/28/2016 K 4.6 04/28/2016 CL 101 04/28/2016 CO2 26 04/28/2016 BUN 23 (H) 04/28/2016 CREATININE 1.27 04/28/2016 GLUCOSE 115 04/28/2016 CALCIUM 8.9 04/28/2016 Lab Results Component Value Date PT 13.3 04/28/2016 INR 1.0 04/28/2016 PTT 27 04/28/2016 EKG (image reviewed): normal EKG, normal sinus rhythm. Estimated CrCl - 98.5 A/P 1. Preop examination 2. Pain in right hip 3. Failed total hip arthroplasty, sequela 4. Coronary artery disease involving [place] coronary artery of jam[place] heart without angina pectoris He has no symptoms from his CAD and had good recovery from his knee replacement and elects to proceed with revision of his right hip arthroplasty. He understands the increased risk of revision surgery. He is no longer on Plavix. Major Risk Factor per the Revised Cardiac Risk Index (Bold if present) - There is a history of CAD,no CHF, CVA or TIA, DM2 on insulin, or a Creatinine >2 Risk diagnosis for MACE (major adverse cardiovascular event = Myocardial infarction, pulmonary edema, ventricular fibrillation, primary cardiac arrest, or complete heart block.) : Elevated >1% . The patient describes a functional status of equal to 4METs and more (pickle ball until 2 months ago and he stopped due to hip pain) and based on the ACC/AHA 2014 guideline no further cardiovascular testing is indicated. ARISCAT/CANET Score - estimates the risk of postoperative pulmonary complications as being low ~3.5%. STOP BANG Score - High risk for YESICA. Per the ACS NSQIP calculator I estimated the following. 20 of this 30 minute encounter was spent incounseling him with his present. Importance of continuing his medications to address the elevated cardiac risk was reiterated. He will take his carvedilol as usual along with aspirin and statin without any changes. He will avoid ibuprofen if possible in the 3 days prior to surgery. RECCO for postoperative care: Hold Coreg if systolic blood pressure less than 105 or heart rate less than 60 Atorvastatin 10 mg by mouth at bedtime in lieu of pravastatin Continue aspirin Minimize scheduled NSAID upon discharge. documented in this encounter Plan of Treatment Upcoming Encounters Date Type Department Care Team (Late st Contact Info) Description 10/31/2023 9:15 AM EDT Office Visit Dermatology at [facility] [address] [place] [address] Dawson Broderick MD [facility] [address] [facility] [place] [address] 07/23/2024 9:30 AM EDT Office Visit Dermatology at [facility] [address] [place] [address] Dawson Broderick MD [facility] [address] [place] [address] documented as of this encounter Visit Diagnoses Diagnosis Preop examination Preoperative examination, unspecified Pain in right hip Pain in joint, pelvic region and thigh Failed total hip arthroplasty, 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
--- OUTSIDE RECORDS SUMMARY | 2023-10-23 09:08 | XMS_ITS | Encounter Summary ---
[place] [address] Care Team Providers Care Customer Operations Representative Name Role Phone Phoenix Guzmán DO Primary Care Provider [phone] Encounter Details Date Type Department Care Team (Latest Contact Info) Description 07/04/2016 Anti-Coag Telephone [place] [address] Ruben Sands RN Anticoagulation management encounter Social [...] of this encounter Progress Notes * Ruben Sands RN - 07/04/2016 11:13 AM EDT Anticoagulation Therapy Nurse Visit Gunnar Morin 1945 Surgeon: PREM Indication: DVT Prophylaxis S/P Joint Replacement Duration of Treatment: 30 days ends: 30 days (last day = 07/29/16) - After your dose on 07/29, stop the Coumadin??. ?? Therapeutic Range: 2.0-3.0 INR: 1.2 Drawn by: [facility] PHONE: [phone] FAX: [phone] Patient presents with no signs of bleeding [...] at [facility] [address] [place] [address] Dawson Broderick MD [facility] [place] [address] 07/23/2024 9:30 AM EDT Office Visit Dermatology at [facility] [address] [place] [address] Dawson Broderick MD [facility] [place] [address] documented as of this encounter Procedures Procedure Name Priority Date/Time Associated Diagnosis Comments EXTERNAL LAB HEMATOLOGY/COAG RESULTS PANEL Routine 07/04/2016 documented in this encounter Results * (ABNORMAL) Hematology / Coag External Results (07/04/2016) POC INR 1.2(A) 0.9 - 1.1 VISITING NURSE 07/04/2016 Historical Provider HEMATOLOGY ZORA SHEETS VISITING NURSE documented in this encounter Visit Diagnoses Diagnosis Anticoagulation management encounter Encounter for therapeutic drug monitoring documented in this encounter Care Teams Customer Operations Representative Relationship Specialty Start Date End Date Phoenix Guzmán DO [address] [place] [address] [place] [phone] PCP - General General Internal Medicine 02/20/15 documented as of this encounter
--- OUTSIDE RECORDS SUMMARY | 2023-10-23 09:08 | XMS_ITS | Encounter Summary ---
[place] [address] Care Team Providers Care Junior Accountant Name Role Phone Phoenix Guzmán DO Primary Care Provider [phone] Encounter Details Date Type Department Care Team (Latest Contact Info) Description 07/01/2016 Anti-Coag Telephone [place] [address] Carmen Pacheco RN Anticoagulation management encounter Social History Tobacco [...] Progress Notes * Carmen Pacheco RN - 07/01/2016 3:16 PM EDT Anticoagulation Therapy Nurse Visit Gunnar Morin 1945 Surgeon: PREM Indication: DVT Prophylaxis S/P Joint Replacement Duration of Treatment: 30 days ends: 30 days (last day = 07/29/16) - After your dose on 07/29, stop the Coumadin??. ?? Therapeutic Range: 2.0-3.0 INR: 1.2 Drawn by: [facility] PHONE: [phone] FAX: [phone] Patient presents with no signs of bleeding [...] Dermatology at [facility] [address] [place] [address] Dawson Broderick MD [facility] [place] [address] 07/23/2024 9:30 AM EDT Office Visit Dermatology at [facility] [address] [place] [address] Dawson Broderick MD [facility] [address] documented as of this encounter Procedures Procedure Name Priority Date/Time Associated Diagnosis Comments EXTERNAL LAB HEMATOLOGY/COAG RESULTS PANEL Routine 07/01/2016 documented in this encounter Results * (ABNORMAL) Hematology / Coag External Results (07/01/2016) POC INR 1.2(A) 0.9 - 1.1 VISITING NURSE 07/01/2016 Historical Provider HEMATOLOGY ZORA SHEETS VISITING NURSE documented in this encounter Visit Diagnoses Diagnosis Anticoagulation management encounter Encounter for therapeutic drug monitoring documented in this encounter Care Teams Junior Accountant Relationship Specialty Start Date End Date Phoenix Guzmán DO [address] [place] [address] [place] [phone] PCP - General General Internal Medicine 02/20/15 documented as of this encounter
--- OUTSIDE RECORDS SUMMARY | 2023-10-23 09:08 | XMS_ITS | Encounter Summary ---
[place] [address] Care Team Providers Care Magnetic Grinder Operator Name Role Phone Phoenix Guzmán DO Primary Care Provider [phone] Reason for Visit * Reason Comments Pre-op Exam R ELZBIETA REV 06/29/16 Encounter Details Date Type Department Care Team (Late st Contact Info) Description 06/21/2016 10:00 AM EDT Office [place] [address] Bryant Miranda MD [facility] [place] [address] Preop examination; Failed total hip arthroplasty, sequela; Coronary artery disease involving rincon coronary artery of rincon heart without angina pectoris Social History Tobacco [...] Sign Reading Time Taken Comments Blood Pressure 117/88 06/21/2016 9:54 AM EDT Pulse 71 06/21/2016 9:54 AM EDT Temperature - - Respiratory Rate - - Oxygen Saturation 97% 06/21/2016 9:54 AM EDT Inhaled Oxygen Concentration - - Weight 133.1 kg (293 lb 6.4 oz) 06/21/2016 9:54 AM EDT verbal Height 182.9 cm (6') 06/21/2016 9:54 AM EDT verb al Body Mass Index 39.79 06/21/2016 9:54 AM EDT documented in this encounter H&P Notes * Bryant Miranda MD - 06/21/2016 10:00 AM EDT Images from the original note were not included. CC: Gunnar Morin is a 71 y.o. male with the following problems and medications that is being seen in the clinic for consultation at the request of his surgeon Dr. Walter Rae for preoperative risk stratification and management recommendations in anticipation of revision right total hip arthrop lasty for symptomatic osteolysis and wear. HPI - Pain - Location - Right hip, groin and buttock Quality - aching, Onset - gradual, Duration - several years Intensity - moderate to severe, Aggravating factors - standing, walking, stepping, bending, Alleviating factors - NSAID, APAP, rest. Patient Active Problem List Diagnosis Code ??? 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 Osteoarthritis of both knees M17.0 ??? Bilateral knee pain M25.561, M25.562 ??? Arthritis of knee M19.90 ??? CAD (coronary artery disease) I25.10 ??? DJD (degenerative joint disease) of knee M17.9 ??? Obesity, Class II, BMI 35-39.9 E66.9 ??? 09/07/2015 S/P Left total knee arthroplasty (Dr. Rae) Z96.659 ??? H/O total hip arthroplasty Z96.649 ??? 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 carvedilol (COREG) 12.5 mg Tablet Take 12.5 mg by mouth 2 times daily (with meals). 4 ??? ibuprofen (ADVIL;MOTRIN) 200 mg Tablet Take 200 mg by mouth as needed for Pain. ??? acetaminophen (TYLENOL) 500 mg Tablet Take 2 tablets by mouth every 8 hours. Take every 8 hoursfor 10 days after surgery. Then may take if needed per package insert. Do not take more than 3,000 mg of acetaminophen in 24 hours. (Patient taking differently: Take 1,000 mg by mouth as needed. Takeevery 8 hours for 10 days after surgery. Then may take if needed per package insert. Do not take more than 3,000 mg of acetaminophen in 24 hours.) ??? pravastatin (PRAVACHOL) 10 mg Tablet Take [...] for dental problem, mouth sores and nosebleeds. Had dental abscess and that tooth is removed now and no new issues. Had to postpone prior surgery due to dental abscess. Eyes: Negative for photophobia and visual disturbance. Respiratory: Negative for cough, shortness of breath and wheezing. Cardiovascular: Negative for chest pain, palpitations and leg swelling. Gastrointestinal: Negative for abdominal pain, anal bleeding and blood in stool. Endocrine: Negative for polydipsia and polyphagia. Genitourinary: Negative for dysuria, frequency, hematuria and urgency. Nocturia x1 Musculoskeletal: Positive for gait problem and joint [...] Temperature Temp: -- Heart Rate Heart Rate: 71 Heart Rate: [71-84] Blood Pressure BP: 117/88 BP: (117)/(88) Respiratory Rate Resp: -- SpO2 SpO2: 97 % SpO2: [97 %] Body mass index is 39.79 kg/(m^2). Height: 182.9 cm (6') (verbal) Physical Exam Constitutional: He is oriented to [...] guarding. Musculoskeletal: He exhibits no edema. Right hip Flexion is to 110 with pain, no drift of RLE. Lymphadenopathy: He has no cervical adenopathy. Neurological: He is alert and oriented to person, place, and time. He exhibits normal muscle tone. Coordination normal. Skin: Skin is warm and dry. He is not diaphoretic. No pallor. Psychiatric: He has a normal mood and affect. His behavior is normal. Judgment and thought content normal. Lab Results Component Value Date WBC 4.6 06/21/2016 RBC 4.77 06/21/2016 HGB 14.8 06/21/2016 HCT 45.2 06/21/2016 MCV 94.8 (H) 06/21/2016 MCH 31.0 06/21/2016 MCHC 32.7 06/21/2016 PLATELET 248 06/21/2016 RDWCV 12.7 06/21/2016 Lab Results Component Value Date NA 140 06/21/2016 K 4.5 06/21/2016 CL 99 06/21/2016 CO2 29 06/21/2016 BUN 18 06/21/2016 CREATININE 1.18 06/21/2016 GLUCOSE 64 (L) 06/21/2016 CALCIUM 8.9 06/21/2016 Lab Results Component Value Date AST 16 07/10/2015 ALT 24 07/10/2015 ALKPHOS 41 07/10/2015 BILITOT 0.3 07/10/2015 BILIDIR 0.1 07/10/2015 Lab Results Component Value Date PT 12.9 06/21/2016 INR 0.9 06/21/2016 PTT 28 06/21/2016 Lab Results Component Value Date CK 116 07/11/2015 TROPONINT <0.03 07/11/2015 Estimated Creatinine Clearance: 83.4 mL/min (based on Cr of 1.18). EKG (image reviewed): normal EKG, normal sinus rhythm. A/P 1. Preop examination 2. Failed total hip arthroplasty, sequela 3. Coronary artery disease involving rincon coronary artery of rincon heart without angina pectoris Mildly decreased glucose likely due to recent increase in Coreg. He did have a good breakfast todayprior to the lab draw. Major Risk Factor per the Revised Cardiac [...] outside, goes to his camp and walks there) and based on the ACC/AHA 2014 guideline no further cardiovascular testing is indicated. ARISCAT/CANET Score - estimates the risk of postoperative pulmonary complications as being low ~3.5%. STOB BANG Score - High risk for YESICA. Per the ACS NSQIP calculator I estimated the following. I reviewed Dr. Koenig's note from May visit. I noted his Coreg was increased then. He remains upset about his preoperative evaluation and I again emphasized that the Echo was done because a murmur was noted clinically and his SOB was endorsed per his 's observation. He reports he does NOT feel any different since the stenting. Hedenies any dyspnea. I noted that his BP has trended up and it could reflect increased efficiency ofhis heart as a pump and that the stent is likely helping in this regard by increased ability to supply more blood on demand. I also noted that this procedure likely decreased the risk of a high mortality event like a POMI (post operative RI). I also reviewed his EKG which today is with out the prior noted non specific T wave abnormality seen in June 2015. He is instructed to continue his aspirin, coreg and pravastatin as usual including the morning of surgery. 25 of this 40 minute encounter was spent in counseling with his present. RECCO: Hold coreg if SBP<100 or HR<50 May use Zocor 20mg po HS instead of his pravastatin Continue ASA. documented in this encounter Plan of Treatment Upcoming Encounters Date Type Department Care Team (Late st Contact Info) Description 10/31/2023 9:15 AM EDT Office Visit Dermatology [facility] [address] [place] [address] Dawson Broderick MD [facility] [place] [address] 07/23/2024 9:30 AM EDT Office Visit Dermatology [facility] [address] [place] [address] Dawson Broderick MD [facility] [place] [address] documented as of this encounter Visit Diagnoses Diagnosis Preop examination Preoperative examination, unspecified Failed total hip arthroplasty, sequela Coronary artery disease involving rincon coronary artery of rincon heart without angina pectoris documented in this encounter Care Teams Magnetic Grinder Operator Relationship Specialty Start Date End Date Lagoy, Phoenix T, DO [address] [place] [address] [place] [phone] PCP - General General Internal Medicine 02/20/15 documented as of this encounter
--- OUTSIDE RECORDS SUMMARY | 2023-10-23 09:08 | XMS_ITS | Encounter Summary ---
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 Procedures PRO REVISE TOTAL HIP REPLACEMENT @TOTAL HIP REVISION ARTHROPLASTY, COMPLETE (WRVU 30.28) Referral ID Status Reason Start Date Expiration Date Visits Re quested Visits Authorized [id number] 1 Encounter Details Date Type Department Care Team (Late st Contact Info) Description 05/04/2016 10:28 AM EST - 05/04/2016 10:42 AM EST Surgery [place] [id number] Walter Rae MD [facility] [place] [address] Not Performed @TOTAL HIP REVISION ARTHROPLASTY, COMPLETE (WRVU 30.28) [...] Sign Reading Time Taken Comments Blood Pressure 120/84 05/04/2016 9:28 AM EST Pulse 86 05/04/2016 9:28 AM EST Temperature 36.8 ??C (98.2 ??F) 05/04/2016 9:28 AM ES T Respiratory Rate 16 05/04/2016 9:28 AM EST Oxygen Saturation 99% 05/04/2016 9:28 AM EST Inhaled Oxygen Concentration - - Weight 129.3 kg (285 lb) 05/04/2016 9:28 AM EST Height 182.9 cm (6') 05/04/2016 9:28 AM EST Body Mass Index 38.65 05/04/2016 9:28 AM EST documented in this encounter Medications at Time of Discharge Medication Sig Dispensed Refills Start Date End Date nitroGLYcerin (NITROSTAT) 0.4 mg Tablet, Sublingual Place 1 tablet under the tongue every 5 minutes as needed for Chest pain. 90 tablet 12 07/11/2015 clindamycin (CLEOCIN) 150 mg Capsule See Admin Instructions. Reported on 07/28/2016 04/13/2015 ibuprofen (ADVIL;MOTRIN) 200 mg Tablet Take 200 mg by mouth as needed for Pain. 06/30/2016 acetaminophen (TYLENOL) 500 mg Tablet Take 2 tablets by mouth every 8 hours. Take every 8 hours for 10 days after surgery. Then may take if needed per package insert. Do not take more than 3,000 mg of acetaminophen in 24 hours. 09/08/2015 06/30/2016 carvedilol (COREG) 6.25 mg Tablet Take 6.25 mg by mouth 2 times daily (with meals). 08/18/2015 06/21/2016 pravastatin (PRAVACHOL) 10 mg Tablet Take 1 tablet by mouth nightly. 30 tablet 08/19/2015 02/03/2017 aspirin 81 mg EC tablet Take 81 mg by mouth daily. 09/22/2016 documented as of this encounter Miscellaneous Notes * Initial Assessments - Lou Rao - 05/04/2016 7:42 AM EST Office of Care Management Initial Assessment ?? Lou Rao reviewed record and discussed patient with Care Team. ?? Source of Information: GUNNAR LEO Introduced self/reviewed role; services accepted. ?? Reason for Hospitalization: RIGHT TOTAL HIP REVISION ARTHROPLASTY, COMPLETE. ?? Past??Medical??History No past medical history on file. ?? Hospitalizations Within the Past 30 Days: ?? Anticipated Length Of Stay (If known): ?? Current Decision-Making Capacity: HE IS CAPABLE OF MAKING HIS OWN MEDICAL DECISIONS. ?? Advance Care Planning: HE HAS AN ADV DIR AND HIS AGENT IS HIS SUSSY. ?? Current Coping/Education/Information Needs: ?? Current Functional Ability: ?? Functional Status Prior to Admission: HE WALKS INDEPENDENTLY WITHOUT AN ASSISTIVE DEVICE. HE IS ABLE TO DO HIS ADL WITHOUT ASSISTANCE. HE DRIVES. HE IS RETIRED. ?? Home Environment: HE LIVES IN A 2 LEVEL HOUSE WITH 3 STEPS INTO THE HOUSE WITH A POST. THERE ARE 13STEPS TO THE SECOND FLOOR WHERE THERE BEDROOM IS BUT THE BATHROOM IS ON THE SECOND FLOOR. HE TYPICALLY STAYS ON THE MAIN LEVEL AFTER SURGERY IN THE RECLINER. HE HAS A TUB SHOWER. HE WILL BORROW A SHOWER CHAIR. ?? Social & Family Supports/Community Resources: HIS PRIMARY CAREGIVER IS GOING TO BE SUSSY. ?? Behavioral Health History: NONE ?? Substance Use/Abuse: NONE ?? Other Pertinent/Service Specific Information: NONE ?? Health/Prescription Coverage: Primary Insurance: MEDICARE AB Secondary Insurance: [facility] Prescription Coverage: THROUGH [facility] Preferred Pharmacy: Other: NONE ?? Primary Care Provider: Phoenix Guzmán DO [phone] ?? Patient/Caregiver Goals of Treatment: HE WANTS TO RESUME PLAYING PICKLE BALL, RIDE 4 [place], ETC. ?? Potential Needs for Transition of Care: Rehab/SNF: NO SELECTION Home Health: [facility] [address] [place] [id number] ?? The patient/claim representative has been provided a list of Home Health Agencies/DME vendors which servetheir preferred geographic area. A letter describing our affiliations was reviewed with them and they were educated about their right to choose where referrals are placed. ?? Patient requests referral to [facility] [address] [place] [address] ? Expected date of discharge: ?? Referral routed to the Front End Web Developer for matching with agency/vendor and to provide any required information. ?? OP PT: [facility] A referral has been sent. DME: He has a 2 FWW, a walker with handle brakes and seat, crutches, canes, and high rise toilet. Dialysis: NO Community Resources: NONE Transportation: SUSSY Other: NONE ?? Anticipated Barriers to Discharge/Special Considerations: NONE ?? Plan: HE PREFERS TO GO HOME WITH [facility]. ? A member of the Care Management team will continue to monitor progress, follow for continuity of care and assist with transition of care planning. ?? Lou Rao Pager: [phone] documented in this encounter Plan of Treatment Upcoming Encounters Date Type Department Care Team (Late st Contact Info) Description 10/31/2023 9:15 AM EDT Office Visit Dermatology at [facility] [address] [place] [address] Dawson Broderick MD [facility] DR MYKE STEPH[place] [address] 07/23/2024 9:30 AM EDT Office Visit Dermatology at [facility] [address] [place] [address] Dawson Broderick MD [facility] [place] [address] documented as of this encounter Visit Diagnoses Diagnosis Status post total replacement of right hip H/O total hip arthroplasty Hip joint replacement by other means Status post total replacement of right hip documented in this encounter Admitting Diagnoses Diagnosis H/O total hip arthroplasty Hip joint replacement by other means documented in this encounter Active and Recently Administered Medications Times are shown in EST. Scheduled Medication Order 05/02/2016 05/03/2016 05/04/2016 acetaminophen (TYLENOL) tablet 1,000 mg 1,000 mg, Oral, ONCE, 1 dose, On Mon05/04/16 at 1015, Administer on arrival in Same Day Program, Day of Surgery (Day of Procedure), Routine 1015 (Due) ceFAZolin (ANCEF) 2g in dextrose 5% 50 mL 2 g, Intravenous, EVERY 3 HOURS, 1 dose, First dose on Mon05/04/16 at 1015, Administer over 30 Minutes, Redose after 3 hours., Intra-Operative (Intra-Procedure), Indication for (Active or Suspected): Prophylaxis 1014 (Due) celecoxib (CeleBREX) capsule 400 mg 400 mg, Oral, ONCE, 1 dose, On Mon05/04/16 at 1015, Administer on arrival to Same Day Program, Day of Surgery (Day of Procedure), Routine 5 (Due) gabapentin (NEURONTIN) capsule 300 mg 300 mg, Oral, ONCE, 1 dose, On Mon05/04/16 at 1015, Administer on arrival in Same Day Program, Day of Surgery (Day of Procedure), Routine 1015 (Due) tranexamic acid (CYKLOKAPRON) 1,871 mg in sodium chloride 0.9% 118.71 mL 1,871 mg (rounded from 1,870.5 mg = 15 mg/kg/dose ? 124.7 kg), Intravenous, ONCE, 1 dose, On Mon05/04/16 at 1015, Administer over 30 Minutes, Dilute tranexamic acid dose in 100 mL sodium chloride 0.9% prior to administration. For patients less than or equal to 200 kg infuse over 30 minutes. For patients greater than 200 kg infuse over 60 minutes. , Day of Surgery (Day of Procedure) 1015 (Due) documented in this encounter Care Teams Welt Wheeler Relationship Specialty Start Date End Date Phoenix Guzmán DO [address] [place] [address] [place] [address] PCP - General General Internal Medicine 02/20/15 documented as of this encounter
--- OUTSIDE RECORDS SUMMARY | 2023-10-23 09:08 | XMS_ITS | Encounter Summary ---
[place] [address] Care Team Providers Care Eeler Name Role Phone Phoenix Guzmán DO Primary Care Provider [phone] Encounter Details Date Type Department Care Team (Latest Contact Info) Description 07/11/2016 Anti-Coag Telephone [place] [address] Ruben Sands RN Anticoagulation management encounter Social [...] Progress Notes * Ruben Sands, RN - 07/11/2016 1:18 PM EDT Anticoagulation Therapy Nurse Visit Gunnar Morin 1945 Surgeon: PREM Indication: DVT Prophylaxis S/P Joint Replacement Duration of Treatment: 30 days ends: 30 days (last day = 07/29/16) - After your dose on 07/29, stop the Coumadin??. ?? Therapeutic Range: 2.0-3.0 INR: 1.5 Drawn by: [facility] PHONE: [phone] FAX: [phone] Patient presents with no signs of bleeding [...] Dermatology at [facility] [address] [place] [address] Dawson Broderick MD [facility] [place] [address] 07/23/2024 9:30 AM EDT Office Visit Dermatology at [facility] [address] [place] [address] Dawson Broderick MD [facility] [place] [address] documented as of this encounter Procedures Procedure Name Priority Date/Time Associated Diagnosis Comments EXTERNAL LAB HEMATOLOGY/COAG RESULTS PANEL Routine 07/11/2016 documented in this encounter Results * (ABNORMAL) Hematology / Coag External Results (07/11/2016) POC INR 1.5(A) 0.9 - 1.1 VISITING NURSE 07/11/2016 Historical Provider HEMATOLOGY ZORA SHEETS VISITING NURSE documented in this encounter Visit Diagnoses Diagnosis Anticoagulation management encounter Encounter for therapeutic drug monitoring documented in this encounter Care Teams Eeler Relationship Specialty Start Date End Date Phoenix Guzmán DO [address] [place] [address] [place] [phone] PCP - General General Internal Medicine 02/20/15 documented as of this encounter
--- OUTSIDE RECORDS SUMMARY | 2023-10-23 09:08 | XMS_ITS | Encounter Summary ---
[place] [address] Care Team Providers Care Flexible Shaft Winder Name Role Phone Phoenix Guzmán DO Primary Care Provider [phone] Encounter Details Date Type Department Care Team (Latest Contact Info) Description 07/21/2016 Anti-Coag Telephone [place] [address] Cierra Pacheco, RN [facility] Anticoagulation management encounter Social History Tobacco Use [...] as of this encounter Progress Notes * Cierra Pacheco, MICHAELA - 07/21/2016 4:52 PM EDT Anticoagulation Therapy Nurse Visit Gunnar Morin 1945 Surgeon: PREM Indication: DVT Prophylaxis S/P Joint Replacement Duration of Treatment: 30 days ends: 30 days (last day = 07/29/16) - After your dose on 07/29, stop the Coumadin??. ?? Therapeutic Range: 2.0-3.0 INR: 2.7 Drawn by: PCP-Dr. Goodrich - [phone],press Opt 1 Patient presents with no signs of bleeding [...] symptoms reported Other: Comments: Recent Medication Changes: No Comments: Have you missed any dose of Coumadin this past week? No Comments: Dietary Changes: No Comments: documented in this encounter Plan of Treatment Upcoming Encounters Date Type Department Care Team (Late st Contact Info) Description 10/31/2023 9:15 AM EDT Office Visit Dermatology at [facility] [address] [place] [address] Dawson Broderick MD [facility] [place] [address] 07/23/2024 9:30 AM EDT Office Visit Dermatology at [facility] [address] [place] [address] Dawson Broderick MD [facility] [place] [address] documented as of this encounter Procedures Procedure Name Priority Date/Time Associated Diagnosis Comments EXTERNAL LAB HEMATOLOGY/COAG RESULTS PANEL Routine 07/21/2016 documented in this encounter Results * (ABNORMAL) Hematology / Coag External Results (07/21/2016) POC INR 2.7(A) 0.9 - 1.1 EXTERNAL LAB 07/21/2016 Historical Provider HEMATOLOGY [facility] EXTERNAL LAB documented in this encounter Visit Diagnoses Diagnosis Anticoagulation management encounter Encounter for therapeutic drug monitoring documented in this encounter Care Teams Flexible Shaft Winder Relationship Specialty Start Date End Date Phoenix Guzmán DO [address] [place] [address] [place] [phone] PCP - General General Internal Medicine 02/20/15 documented as of this encounter
--- OUTSIDE RECORDS SUMMARY | 2023-10-23 09:08 | XMS_ITS | Encounter Summary ---
[place] [address] Care Team Providers Care Traveling Representative Name Role Phone Phoenix Guzmán DO Primary Care Provider [phone] Encounter Details Date Type Department Care Team (Late st Contact Info) Description 08/16/2016 Orders [place] [address] Walter Rae MD [facility] [place] [address] Status post total knee replacement, unspecified laterality [...] 9:15 AM EDT Office Visit Dermatology at [facility] [address] [place] [address] Dawson Broderick MD [facility] DR [address]KE STEPHENSON[place] [address] 07/23/2024 9:30 AM EDT Office Visit Dermatology at [facility] [address] [place] [address] Dawson Broderick MD [facility] DR [address] STEPH[place] [address] documented as of this encounter Results * [...] Status post total knee replacement, unspecified laterality Status post total knee replacement, unspecified laterality documented in this encounter Care Teams Traveling Representative Relationship Specialty Start Date End Date Phoenix Guzmán DO [address] [place] [address] [place] [address] PCP - General General Internal Medicine 02/20/15 documented as of this encounter
--- OUTSIDE RECORDS SUMMARY | 2023-10-23 09:08 | XMS_ITS | Encounter Summary ---
[place] [address] Care Team Providers Care Foot And Ankle Surgeon Name Role Phone Phoenix Guzmán Primary Care Provider [phone] Encounter Details Date Type Department Care Team (Late st Contact Info) Description 07/04/2016 Telephone [place] [address] Iris Ngo, RN Social History Tobacco Use Types Packs/Day [...] encounter Miscellaneous Notes * Telephone Encounter - Iris Ngo, RN - 07/04/2016 1:25 PM EDT Pt [facility] be [facility] on 07[facility]14[facility]16. He is requesting a order be placed for INR draws at his PCPs office. Information verified and order placed and faxed as requested. [place] [phone] documented in this encounter Plan of Treatment Upcoming Encounters Date Type Department Care Team (Late st Contact Info) Description 10/31/2023 9:15 AM EDT Office Visit Dermatology at [facility] [address] [place] [address] Dawson Broderick MD [facility] [address] [place] [address] 07/23/2024 9:30 AM EDT Office Visit Dermatology at [facility] [address] [place] [address] Dawson Broderick MD [facility] [place] [address] documented as of this encounter Visit Diagnoses Diagnosis Status post total replacement of right hip Monitoring for anticoagulant use Encounter for long-term (current) use of anticoagulants documented in this encounter Care Teams Foot And Ankle Surgeon Relationship Specialty Start Date End Date Phoenix Guzmán DO [address] [place] [address] JOHN Laboy [address] PCP - General General Internal Medicine 02/20/15 documented as of this encounter
--- OUTSIDE RECORDS SUMMARY | 2023-10-23 09:08 | XMS_ITS | Encounter Summary ---
[place] [address] Care Team Providers Care Continuous Improvement Intern Name Role Phone Phoenix Guzmán Primary Care Provider [phone] Reason for Referral * Consultation (Routine) - Closed Specialty Diagnoses / Procedures Referred By Omid shepherd Referred To Contact Orthopaedics Diagnoses Status post total replacement of right hip Nellie Guzamn PA [facility] [place] [address] [facility] [address] [place] [id number] Referral ID Status Reason Start Date Expiration Date V isits Requested Visits Authorized [id number] Closed Assume Subset of Care 06/30/2016 06/30/2017 1 1 Reason for Visit * Auth/Cert Specialty Diagnoses / Procedures Referred By Omid shepherd Referred To Contact Diagnoses 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 Procedures PRO REVISE TOTAL HIP REPLACEMENT @TOTAL HIP REVISION ARTHROPLASTY, COMPLETE (WRVU 30.28) MODIFIER S-ROM FEMORAL STEM DEPUY Referral ID Status Reason Start Date Expiration Date Visits Re quested Visits Authorized [id number] 1 1 Encounter Details Date Type Department Care Team (Latest Contact Info) Description 06/29/2016 5:55 AM EDT - 06/30/2016 3:22 PM EDT Hospital Encounter [address] [place] [address] Walter Rae MD [facility] [address] [place] [address] Status post total replacement of right hip [...] Sign Reading Time Taken Comments Blood Pressure 114/68 06/30/2016 11:50 AM EDT Pulse 64 06/29/2016 1:15 PM EDT Temperature 36.9 ??C (98.4 ??F) 06/30/2016 11:50 AM E DT Respiratory Rate 17 06/30/2016 11:50 AM EDT Oxygen Saturation 90% 06/30/2016 11:50 AM EDT Inhaled Oxygen Concentration - - Weight 132.9 kg (293 lb) 06/29/2016 6:14 AM EDT Height 182.9 cm (6') 06/29/2016 6:14 AM EDT Body Mass Index 39.74 06/29/2016 6:14 AM EDT documented in this encounter Discharge Summaries * Nellie Guzman PA - 06/30/2016 12:38 PM EDT Discharge Summary Patient Name: Gunnar Morin Patient Age: 71 y.o. Language: Gambian Race: White Ethnicity: Not nor Admit date: 06/29/2016 Discharge date and time: 06/30/2016 Attending Physician: Walter Rae MD Discharge Physician: Walter Rae MD Follow-up Recommendations for Providers: See discharge instructions for additional details. Future Appointments Date Time Provider Department Center 07/28/2016 9:30 AM ORTHO DEAF INTERPRETER [facility] 07/28/2016 10:50 AM Walter Rae MD [facility] Inpatient Provider Contact Information: Walter Rae MD Orthopedics: [phone] After hours and weekends, call [facility], , and have the Orthopedic resident paged. Discharge Diagnoses (Hospital Problems) and Secondary Diagnoses (Chronic Problems): Active Hospital Problems Diagnosis ??? s/p revision R ELZBIETA with head-liner exchange 06/29/16 (Dr. Rae) Resolved Hospital Problems Diagnosis Date Resolved No resolved problems to display. Active Non-Hospital Problems Diagnosis ??? Status post total replacement of right hip ??? 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 H/O total hip arthroplasty ??? Obesity, Class II, BMI 35-39.9 ??? 09/07/2015 S/P Left total knee arthroplasty (Dr. Rae) ??? DJD (degenerative joint disease) of knee ??? CAD (coronary artery disease) ??? Arthritis of knee ??? Osteoarthritis of both knees ??? Bilateral knee pain Operations/Major Procedures: 06/29/2016 Surgeon(s) and Role: * Walter Rae MD - Primary * Lg Simental MD - Resident-[employer] Machine Operator * Italo Hanna MD - *CONSULTING SURGEON Procedure(s): Right ELZBIETA revision - polyethylene liner and head exchange. Medial acetabular osteolysis bone grafted and trochanteric osteolysis debrided History of Presentation: Gunnar Morin is a 71 y.o. male with previous right total hip arthroplasty performed in 1996, whopresented right hip pain. X-rays were suggestive of asymmetric poly wear with associated osteolysis in both the greater trochanter, the femur and behind the acetabular component. Risks and benefits of proceeding with revision arthroplasty with head/liner exchange was discussed with the patient. Hospital Course: The patient was admitted for the above operation. DVT prophylaxis is: Coumadin. Patient began rehabon POD#1 with weight bearing as tolerated of right leg and reinforcement of the ELZBIETA Precautions. OnPOD#1 the operative dressing was dry and intact and was benign. Patient did not have a bowel movement prior to discharge but was passing flatus and was taking a diet without difficulty. Patient was vo iding spontaneously without issue. Pain was well controlled on oral medications. By POD#1 the patient was medically stable and was cleared for safe discharge to home per PT. Vital Signs at Discharge: Weight: Wt Readings from Last 1 Encounters: 06/29/16 (!) 132.9 kg (293 lb) Height: Ht Readings from Last 1 Encounters: 06/29/16 182.9 cm (6') HC: HC Readings from Last 1 Encounters: No data found for HC BMI: Body mass index is 39.74 kg/(m^2). Last value Range last 24 hrs Temperature Temp: 36.9 ??C (98.4 ??F) Temp: [36.3 ??C (97.3 ??F)-37.5 ??C (99.5 ??F)] Heart Rate Heart Rate: 64 Heart Rate: [64] Blood Pressure BP: 114/68 BP: (112-138)/(61-82) Respiratory Rate Resp: 17 Resp: [12-20] SpO2 SpO2: 90 % SpO2: [90 %-98 %] Art BP BP (Arterial Line): 122/62 BP (Arterial Line): -- Functional and Cognitive Status: Patient mobilizing with walker, cognitively intact at baseline mental status at time of discharge. Important Studies and Lab Data: Labs: Last 3 wbc, hgb, hct plt Recent Labs 06/30/16 0459 06/21/16 0831 04/28/16 1259 WBC 10.6* 4.6 5.2 HGB 13.2* 14.8 15.4 HCT 39.2* 45.2 45.2 PLATELET 197 248 258 Last 3 Lytes Recent Labs 06/30/16 0459 06/21/16 0831 04/28/16 1259 NA 140 140 141 K 5.1* 4.5 4.6 CL 102 99 101 CO2 26 29 26 BUN 15 18 23* CREATININE 1.12 1.18 1.27 Last 3 Coags Recent Labs 06/30/16 0459 06/29/16 1638 PT 13.8 13.6 INR 1.0 1.0 Studies: Xr Pelvis (generic) Result Date: 06/29/2016 EXAMINATION: XR PELVIS (GENERIC) CLINICAL HISTORY: s/p revision R ELZBIETA. TECHNIQUE: AP pelvis COMPARISON: April 12, 2016 FINDINGS: A right hip prosthesis is present. The prosthesis is well-positioned. This prosthesis has been revised since the prior examination. Gas within the adjacent soft tissuesis consistent with recent surgery. Surgical skin oni are present. Right hip prosthesis revision without complication Transfusions: No Discharge Conditions/Prognosis: Stable, awake, and alert. Mobilizing as noted above, pain controlled on oral medications. Discharge to: Home With home services. Updated Allergies/ADRs: Allergies Allergen Reactions ??? Amoxicillin Trihydrate Hives Immunizations Given this Hospitalization: There is no immunization history on file for this patient. Discharge Medications: Your Medications New Medications Dose Details bisacodyl 10 mg Supp Commonly known as: DULCOLAX Place 1 suppository rectally daily as needed (constipation). 10 mg Refills: 0 gabapentin 300 mg Cap Commonly known as: NEURONTIN Take 1 capsule by mouth nightly for 26 days. Start taking on: 07/01/2016 300 mg Quantity: 26 capsule Refills: 0 naproxen 500 mg Tab [...] achieve a smaller dose. 5-15 mg Quantity: 45 tablet Refills: 0 polyethylene glycol 17 gram Pwpk Commonly known as: MIRALAX Take 17 g by mouth 2 times daily as needed (bowel regimen/constipation). 17 g Refills: 0 senna-docusate 8.6-50 mg Tab Commonly known as: PERICOLACE Take 2 tablets by mouth 2 times daily. Bowel regimen while on narcotics. 2 tablet Quantity: 60 tablet Refills: 2 warfarin 5 mg Tab Commonly known as: COUMADIN Take 1 tablet by mouth every evening for 29 days. Your dose may vary depending on your INR value. You may need to break or combine pills to achieve the right dose. 5 mg Quantity: 29 tablet Refills: 0 Continued medications with new dosing Dose Details acetaminophen 500 mg Tab Commonly known as: TYLENOL Take 2 tablets by mouth every 8 hours. Around the clock until 07/09/16, and then as needed. DO NOT EXCEED 3000 mg tylenol in a 24 hour period. What changed: additional instructions 1000 mg Refills: 0 Continued medications, unchanged Dose Details aspirin 81 mg Tbec Take 81 mg by mouth daily. 81 mg Refills: 0 carvedilol 12.5 mg Tab Commonly known as: COREG Take 12.5 mg by mouth 2 times daily (with meals). 12.5 mg Refills: 4 clindamycin 150 mg Cap Commonly known as: CLEOCIN See Admin Instructions. TAKE 2 CAPSULES ONE HOUR BEFORE DENTAL PROCEDURES Refills: 0 nitroGLYcerin 0.4 mg Subl Commonly known as: NITROSTAT Place 1 tablet under the tongue every 5 minutes as needed for Chest pain. 0.4 mg Quantity: 90 tablet Refills: 12 pravastatin 10 mg Tab Commonly known as: PRAVACHOL Take 1 tablet by mouth nightly. 10 mg Quantity: 30 tablet Refills: 0 STOPPED Medications ibuprofen 200 mg Tab Commonly known as: ADVIL;MOTRIN Smoking Status at Discharge: History Smoking Status ??? Former Smoker ??? Quit date: 01/11/2001 Smokeless Tobacco ??? Never Used Instructions Given to Patient at Discharge: There are no outpatient Patient Instructions on file for this admission. General Instructions Activity: 1. Your weight-bearing status is - weight bearing as tolerated of right leg. 2. Remember to use a walker or crutches as needed for balance and protection. Your physical therapist may progress you to using a cane when appropriate. 3. Remember your hip precautions: Enhanced: DO [...] upon discharge is: - Day of discharge (06/30/16): Take 5 mg (one of the 5mg pills) at 5 PM. Your next INR is scheduled on: 07/01/16. This will be checked by the Visiting Nurses. It is very important that you have your PT/INR checked regularly as your dose may change based on your lab values, at least twice per week (usually every Monday and ). INR Goal: 2 - 3 Expected duration of treatment: 30 days (last day = 07/29/16) - After your dose on 07/29, stop the Coumadin??. Provider/Team responsible for ongoing outpatient anticoagulation management: - Provider/Team/Clinic: [facility] - - If you have not received a call from your provider, by 4pm, after having your INR drawn, please call the Orthopedic Clinic Nurse at [phone] for further dose instructions. If it is after 5pm or on the weekends, the Orthopedic resident mergers and acquisitions attorney will be managing your dosing (please call [phone] and ask for them to be paged). Warfarin (Coumadin??) should be taken at the same time every day, usually at 5pm. The following table shows your most recent INR results and Coumadin?? doses: Date Notes INR Coumadin?? dose 06/29 day of operation 1.0 5 06/30 D/C POD#1 1.0 5 If your INR level is ever above [...] not take or discontinue any prescription or pjtc-sss-hcbyeqx medications without asking your doctor or pharmacist [...] bowel movement. You can also take an xrtj-mcs-xevdhbb medication, Miralax if needed to combat constipation. 2. If you need a renewal on your narcotic pain medication, you need to give the Orthopedic clinic enough time to process your request. This can take up to three days, so plan accordingly. 3. Continue acetaminophen (Tylenol) 1,000mg every 8 hours around the clock until 07/09/16 (for ten days after your surgery). This [...] for a limited period of time only. Taper off this medication as your pain improves. 5. You are being discharged on prescription strength naproxen (Aleve). This medication is a type ofnonsteroidal anti-inflammatory (NSAID). This will help with your pain and inflammation. Take this twice a day for the next 6 weeks. Your last dose will be on 08/10/16. If you no longer are requiring the narcotic pain medication you may change the way you take the prescribed naproxen and instead taketwice a day as needed. 6. You are [...] night for the next 4 weeks. Shower (oni/sutures): 1. You can shower but remember your activity limitations and always have a chair available for balance and protection. DO NOT submerge the dressing/incision. 2. (Mepilex) Do not let water run over the operative dressing. If it becomes wet lightly pat the dressing dry. DO NOT submerge the incision. 3. You have oni/sutures. Always cover them with a waterproof dressing or plastic bag when showering until they are removed. 4. After oni/sutures are removed you can let water run gently over the incision. Wound (Mepilex): 1. Staple/suture removal 2 weeks after surgery (approximately 07/13/16). 2. Do not lift the edge of the Mepilex dressing to inspect the incision, it will not re-adhere. Remove your operative dressing 7 days from your surgery (07/06/16). When it is removed you can leave the incision open to air or cover it with a light dressing. 3. If you have lots of drainage when you get home (and it is before 07/06), remove this operative dressing and replace it [...] 1. You will have follow-up appointments at [facility] as indicated below in Future Appointment and Orders. 2. You will need to have x-rays prior to your follow-up appointment on 07/28/16. Please come to Radiology, desk 3T, 1 hour BEFORE that appointment for these x-rays. Future Appointments Date Time Provider Department Center 07/28/2016 9:30 AM ORTHO DEAF INTERPRETER [facility] 07/28/2016 10:50 AM Walter Rae MD [facility] If you have questions or concerns: Monday through Monday, 8 AM - 5 PM, please call Walter Christianson MD's office at . If it is after 5 PM, the weekend, or holidays, please call and ask to speak with theOrthopedic resident on-call. Future Appointments and Orders Future Appointments Provider Department Dept Phone 07/28/2016 9:30 AM ORTHO DEAF INTERPRETER Orthopaedics [phone] 07/28/2016 10:50 AM Walter Rae MD Orthopaedics [phone] Future Orders Complete By Expires Referral for Anticoagulation Monitoring [[id number] Custom] As directed Process Instructions: If no progress note charted, please enter Clinical details in comments. Scheduling Instructions: Questions: INR Goal: 2.0-3.0 Responsible Group: [facility] Target End Date: 07/29/2016 Next due INR: 07/01/2016 Risk Factors: My question or request is: home with VNA Referral to Home Health - at DISCHARGE [[id number] CPT(R)] As directed Process Instructions: Scheduling Instructions: Comments: DOCUMENTATION FOR VNA SERVICES (INCLUDING THOSE PATIENTS WITH MEDICARE COVERAGE REQUIRING HOME VNA SERVICES AND/OR HOSPICE SERVICES) Gunnar Morin Discharge [place] [place] [place] [address] (home) Telephone Information: Public Safety Telecommunicator's Name: self In discussion with the attending physician, it is certified that this patient is under their care and that they, or a nurse practitioner, clinical nurse specialist or physician's purchasing administrative assistant who is working directly with them, had a face to face encounter that meets the physician face to face encounter requirements with this patient on 06/30/2016 The encounter with the patient was in whole, or in part, for the following medical condition, whichis the primary reason for home health care services: R hip revision In discussion with the provider, it is certified that, based on their findings, the following services are medically necessary for home health services. To provide the following care/treatments with the clinical findings supporting the need for services as follows: [facility]: [facility] PHONE: [phone] FAX: [phone] Home care orders for Total Hip Replacements w PT services only. Alf(SN) eval if indicated on admission visit 1. Draw PT/INR as follows: per MD orders. Please draw on 07/01/16 Thereafter, PT/INR: every Monday and x 4 weeks Point of care testing is acceptable to obtain results PT/INR results to be called to the following: [facility] Orthopedic anticoagulation (Coumadin) clinic @ ; 2. Assess wound, pain management, medication effectiveness and management, elimination, nutrition patterns Do not lift the edge of the mepilex dressing to observe the incision; this dressing needs to stay in place until 7 days after surgery. (07/06/16) 3. Staple removal in 14 days- 07/13/16 4. Continue PT rehab for balance, endurance, joint mobility, ROM, Strength, ELZBIETA protocol FOR MEDICARE ONLY: (please delete this section if not Medicare) In discussion with the attending physician, it is certified that the clinical findings support thatthis patient is homebound ;i.e. absences from home require considerable and taxing effort Due to: need for walking aide and assist to leave the home All VNA agencies which cover the area of patient's residence have been reviewed, either verbally santy writing, and patient/family have chosen the home health care agency as noted for home services. Questions: Agency name and contact information: [facility] Patient location post discharge: [address] [place] [address] What services are requested: Registered Nurse Start date: Responsible MD post discharge contact info: PCP Primary Care Provider: Phoenix Guzmán DO [phone] Discharge References/Attachments None documented in this encounter Discharge Instructions * Discharge Instructions* Nellie Guzman PA - 06/30/2016 12:38 PM EDT Activity: 1. Your weight-bearing status is - weight bearing as tolerated of right leg. 2. Remember to use a walker or crutches as needed for balance and protection. Your physical therapist may progress you to using a cane when appropriate. 3. Remember your hip precautions: Enhanced: DO [...] upon discharge is: - Day of discharge (06/30/16): Take 5 mg (one of the 5mg pills) at 5 PM. Your next INR is scheduled on: 07/01/16. This will be checked by the Visiting Nurses. It is very important that you have your PT/INR checked regularly as your dose may change based on your lab values, at least twice per week (usually every Monday and ). INR Goal: 2 - 3 Expected duration of treatment: 30 days (last day = 07/29/16) - After your dose on 07/29, stop the Coumadin??. Provider/Team responsible for ongoing outpatient anticoagulation management: - Provider/Team/Clinic: [facility] - - If you have not received a call from your provider, by 4pm, after having your INR drawn, please call the Orthopedic Clinic Nurse at [phone] for further dose instructions. If it is after 5pm or on the weekends, the Orthopedic resident mergers and acquisitions attorney will be managing your dosing (please call [phone] and ask for them to be paged). Warfarin (Coumadin??) should be taken at the same time every day, usually at 5pm. The following table shows your most recent INR results and Coumadin?? doses: Date Notes INR Coumadin?? dose 06/29 day of operation 1.0 5 06/30 D/C POD#1 1.0 5 If your INR level is ever above [...] not take or discontinue any prescription or ykov-joh-xfxyoaa medications without asking your doctor or pharmacist [...] bowel movement. You can also take an nawx-kwo-vdlmpzo medication, Miralax if needed to combat constipation. 2. If you need a renewal on your narcotic pain medication, you need to give the Orthopedic clinic enough time to process your request. This can take up to three days, so plan accordingly. 3. Continue acetaminophen (Tylenol) 1,000mg every 8 hours around the clock until 07/09/16 (for ten days after your surgery). This [...] for a limited period of time only. Taper off this medication as your pain improves. 5. You are being discharged on prescription strength naproxen (Aleve). This medication is a type ofnonsteroidal anti-inflammatory (NSAID). This will help with your pain and inflammation. Take this twice a day for the next 6 weeks. Your last dose will be on 08/10/16. If you no longer are requiring the narcotic pain medication you may change the way you take the prescribed naproxen and instead taketwice a day as needed. 6. You are [...] night for the next 4 weeks. Shower (oni/sutures): 1. You can shower but remember your activity limitations and always have a chair available for balance and protection. DO NOT submerge the dressing/incision. 2. (Mepilex) Do not let water run over the operative dressing. If it becomes wet lightly pat the dressing dry. DO NOT submerge the incision. 3. You have oni/sutures. Always cover them with a waterproof dressing or plastic bag when showering until they are removed. 4. After oni/sutures are removed you can let water run gently over the incision. Wound (Mepilex): 1. Staple/suture removal 2 weeks after surgery (approximately 07/13/16). 2. Do not lift the edge of the Mepilex dressing to inspect the incision, it will not re-adhere. Remove your operative dressing 7 days from your surgery (07/06/16). When it is removed you can leave the incision open to air or cover it with a light dressing. 3. If you have lots of drainage when you get home (and it is before 07/06), remove this operative dressing and replace it [...] 1. You will have follow-up appointments at [facility] as indicated below in Future Appointment and Orders. 2. You will need to have x-rays prior to your follow-up appointment on 07/28/16. Please come to Radiology, desk , 1 hour BEFORE that appointment for these x-rays. Future Appointments Date Time Provider Department Center 07/28/2016 9:30 AM ORTHO DEAF INTERPRETER [facility] 07/28/2016 10:50 AM Walter Rae MD [facility] [...] See Admin Instructions. Reported on 07/28/2016 04/13/2015 gabapentin (NEURONTIN) 300 mg Capsule Take 1 capsule by mouth nightly for 26 days. 26 capsule 07/01/2016 07/27/2016 naproxen (NAPROSYN) 500 mg Tablet Take 1 tablet by mouth 2 times daily (with meals) for 41 days. 82 tablet 06/30/2016 08/10/2016 omeprazole (PRILOSEC) 20 mg Capsule, Delayed Release(E.C.) Take 1 capsule by mouth daily for 41 days. 41 capsule 06/30/2016 08/10/2016 acetaminophen (TYLENOL) 500 mg Tablet Take 2 tablets by mouth every 8 hours. Around the clock until 07/09/16, and then as needed. DO NOT EXCEED 3000 mg tylenol in a 24 hour period. 06/30/2016 07/28/2016 bisacodyl (DULCOLAX) [address] 1 suppository rectally daily as needed (constipation). 06/30/2016 07/28/2016 oxyCODONE (ROXICODONE) 5 mg Tablet Take 1-3 tablets by mouth every 4 hours as needed for Pain. Take the smallest dose possible to control your pain. As your pain improves take smaller, less frequent doses. You may break the tablet to achieve a smaller dose. 45 tablet 06/30/2016 07/28/2016 polyethylene glycol (MIRALAX) 17 gram Powder in Packet Take 17 g by mouth 2 times daily as needed (bowel regimen/constipation) . 06/30/2016 07/28/2016 senna-docusate (PERICOLACE) 8.6-50 mg Tablet Take 2 tablets by mouth 2 times daily. Bowel regimen while on narcotics. 60 tablet 2 06/30/2016 07/28/2016 warfarin (COUMADIN) 5 mg Tablet Take 1 tablet by mouth every evening for 29 days. Your dose may vary depending on your INR value. You may need to break or combine pills to achieve the right dose. 29 tablet 06/30/2016 07/18/2016 pravastatin (PRAVACHOL) 10 mg Tablet Take 1 tablet by mouth nightly. 30 tablet 08/19/2015 02/03/2017 aspirin 81 mg EC tablet Take 81 mg by mouth daily. 09/22/2016 documented as of this encounter Progress Notes * Indy Beltre RN - 06/30/2016 3:22 PM EDT Patient Name: Gunnar Morin Patient Age: 71 y.o. Birthdate: 1945 Admit date: 06/29/2016 Attending Physician: No att. providers found IV removed, site benign. Pts assessment remains unchanged from previous assessment. Discussed pain management with patient, pain tolerable. Pt medicated prior to discharge. Pt has all belongings. Pt received discharge summary and prescriptions. These were reviewed. All questions answered. Pt encouraged to call with questions or concerns. Pt discharged to home with family. Report faxed, called andgiven to MICHAELA [facility] at [facility]. * Lg Simental MD - 06/30/2016 5:53 AM EDT ORTHOPAEDIC PROGRESS NOTE SURGERY/ISSUE: Revision R ELZBIETA head-liner exchange 06/29/16 with bone grafting acetabular osteolysis Patient Active Problem List Diagnosis Code ??? [...] of internal prosthetic right hip joint T84.050A No past medical history on file. Interval History: No major issues o/n pain well controlled Ambulated around unit last night. Tolerating PO, urinating independently Denies CP/SOB/N/V Temp: [36.3 ??C (97.3 ??F)-37.5 ??C (99.5 ??F)] Heart Rate: [61-72] Resp: [8-20] BP: (112-160)/(53-97) SpO2: [92 %-99 %] Heart Rate from SPO2: [62 bpm-87 bpm] I/O last 3 completed shifts: In: 2947 [P.O.:720; I.V.:2227] Out: 900 [Urine:700; Blood:200] I/O this shift: In: 1663 [P.O.:600; I.V.:1063] Out: 2850 [Urine:2850] Physical Exam: General: NAD, AOx3, resting comfortably RLE Dressing C/D/I, Incision w/out E/I/D SITLT in DP/SP/T Firing EHL/TA/GC Foot WWP Lab Results Component Value Date WBC 10.6 (H) 06/30/2016 RBC 4.08 (L) 06/30/2016 HGB 13.2 (L) 06/30/2016 HCT 39.2 (L) 06/30/2016 PLATELET 197 06/30/2016 NA 140 06/30/2016 K 5.1 (H) 06/30/2016 CO2 26 06/30/2016 BUN 15 06/30/2016 CREATININE 1.12 06/30/2016 INR 1.0 06/29/2016 Imaging: Xray Pelvis: Interval revision ELZBIETA, hip located, no hardware complications Assesment/Plan: 71M s/p revision R ELZBIETA for asymetric polyethylene wear and osteolysis with head-liner exchange. Doing very well post-op. Work with PT today for dispo planning. ?? Active Issues: None ?? Activity: WBAT RLE, enhanced posterior hip precautions ?? Pain Control: PO multimodal, avoid NSAIDs at discharge ?? Antibiotics: Periop Ancef ?? Anticoagulation: Coumadin ?? Drains: None ?? Dressing/Spints: Mepilex x 7 days ?? Dispo: Per PT/OT Future Appointments Date Time Provider Department Center 07/28/2016 9:30 AM ORTHO DEAF INTERPRETER [facility] 07/28/2016 10:50 AM Walter Rae MD [facility] * Margaux Graham RN - 06/29/2016 2:47 PM EDT Pt arrived to floor from PACU after right ELZBIETA revision. Pt alert and oriented x4. Pt reports pain 0/10. Pt denies any chest pain, shortness of breath, dizziness or nausea. Refer to doc flow sheets for full assessment. in room at bedside. Patient oriented to room with call caldwell within reach. [place] on. Will continue to monitor. * Chastity Adler MD - 06/29/2016 2:42 PM EDT Orthopaedic Surgery Post-Operative Progress Note Surgery: R ELZBIETA revision, head and liner exchange Patient Active Problem List Diagnosis Code ??? [...] of internal prosthetic right hip joint T84.050A Patient seen: PA08 Subjective/Events: Patient is doing well, pain is well controlled. He reminisces on his experienceswith Dr. Quintanilla and the retired life. - Denies any nausea or vomiting. Objective: Vitals: Temp: [36.6 ??C (97.9 ??F)-36.7 ??C (98.1 ??F)] Heart Rate: [61-72] Resp: [8-18] BP: (112-160)/(53-97) SpO2: [93 %-99 %] Heart Rate from SPO2: [62 bpm-67 bpm] I/O this shift: In: 2226 [I.V.:2226] Out: 500 [Urine:300; Blood:200] Exam: General: NAD, awake/alert, responds to questions Resp: Breathing comfortably Abd: Soft, nontender, nondistended. RLE: Posterior hip mepilex dressing c/d/i Sensory intact to light touch in SP, DP, T, sural Motor intact to FHL/EHL/TA. Knee abduction in place Brisk capillary refill distally, foot warm/well-perfused No results for input(s): WBC, HGB, HCT, PLATELET, NA, K, CL, CO2, BUN, CREATININE in the last 72 hours. Radiology: XR pelvis: S/p Right ELZBIETA revision. Poly on ceramic, no evidence of fracture or dislocation A/P: 71 y.o. year old male POD#0 s/p revision R ELZBIETA with head-liner exchange WBAT RLE, enhanced posterior precautions Oni (out in 10-14 days) Mepilex Silver x 7 days Coumadin PT/OT * Starr Jesus RN - 06/29/2016 11:02 AM EDT 1040: patient received from the operating room, alarms on and set appropriate for patient, vs's, bladder scan shows 429 cc, patient straight cath for 300 cc. 1130: xray's done, vs's, patient complaining of right eye pain, anesthesia notified to come and evaluate for corneal abrasion. 1200: anesthesia in to evaluate right eye, less discomfort after drops placed, probable corneal abrasion. 1200: on insertion of straight cath, broken blood vessel on tip of penis, will let cross covering know. 1300: ortho ;communications marketing intern made aware of broken blood vessel on penis, waiting for ortho bed, vs's, patient comfortable. 1315: report given to floor, vs's, patient comfortable. documented in this encounter H&P Notes * Lg Simental MD - 06/29/2016 6:04 AM EDT Please see H&P note for visit documentation. The patient's history and physical exam have been reviewed and completed. There has been no interval change from that of the pre-operative history and physical exam done on 06/21/16 (within the last 30 days). documented in this encounter Miscellaneous Notes * Plan of Care - Michelle Cavazos PT - 06/30/2016 1:46 PM EDT Problem: Patient Care Overview Goal: Plan of Care Review Outcome: Ongoing (Interventions Implemented as Appropriate) 06/30/16 1344 Coping/Psychosocial Plan Of Care Reviewed With patient Plan of Care Review Progress progress toward functional goals as expected Physical Therapy Assessment Pt seen for skilled PT evaluation - Treatment Number: 1 Please see the Rehab Evaluation Summaries report for objective data and specifics of today???s session. Pt tolerated rx well and is demonstrating functional readiness for d/c home with his 's assist as needed and f/u home PT. Pertinent History of Current Problem: 71 yo M adm. for right TH revision, head liner exchange with bone grafting for periprosthetic osteolysis; PMH: R ELZBIETA, L TKA; B knee osteoarthritis, CAD Staff Mobility Recommendations: independent ambulation with walker Precautions/Restrictions: hip Precautions Comments: (enhanced hip precautions, WBAT RLE) Anticipated Physical Therapy Frequency: evaluation only Anticipated Equipment Needs at Discharge: (has all needed DME) Anticipated Discharge Disposition: home with assist, home with home health Demonstrates Need for Referral to Another Service: home health care Pager: [phone] MICHELLE CAVAZOS PT 06/30/2016 Inpatient Physical Therapy * Plan of Care - Bhargavi Michelle OT - 06/30/2016 10:38 AM EDT Problem: Patient Care Overview Goal: Plan of Care Review Outcome: Ongoing (Interventions Implemented as Appropriate) 06/30/16 1540 Coping/Psychosocial Plan Of Care Reviewed With patient Occupational Therapy Evaluation Pertinent History of Current Problem: Pt is a 71 yo M adm. for right TH revision, head liner exchange with bone grafting for periprosthetic osteolysis; PMH: R ELZBIETA, L TKA; B knee osteoarthritis, CAD Active Non-Hospital Problems Diagnosis ??? Status post total replacement of right hip ??? Anticoagulation management encounter ??? 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 H/O total hip arthroplasty ??? Obesity, Class II, BMI 35-39.9 ??? 09/07/2015 S/P Left total knee arthroplasty (Dr. Rae) ??? DJD (degenerative joint disease) of knee ??? CAD (coronary artery disease) ??? Arthritis of knee ??? Osteoarthritis of both knees ??? Bilateral knee pain Social HIstory: Pt lives with his . She is 6 weeks post TKA, and up walking with only a cane now as needed, anddriving. She is managing all her ADLs herself. Their home is 2 levels, and he has 3 steps in and then a flight to upstairs (bed/bath). He has bathrooms on either level. He has a tub shower and already has seat for it. The toilet is higher with vanity to one side. DME: 3 walkers (including 1 FWW), crutches, cane, all AE, shower seat Precautions/Restrictions: hip Precautions Comments: enhanced precautions, WBAT R LE Assessment: Pt has been seen by OT for evaluation, please refer to associated flowsheet data for details. Pt demonstrates the ability to perform basic ADL???s on his own with modifications given his hip precautions, and verbalizes understanding of his precautions as had them in the past as well. HEhas the necessary DME and AE already. Anticipate that pt will return home with assistance. Do not anticipate further OT needs. Therapy Frequency: evaluation only Anticipated Equipment Needs at Discharge: (has necessary DME already ) Anticipated Discharge Disposition: home with assist Pager: [phone] BHARGAVI MICHELLE OT 06/30/2016 Occupational Therapy Rehabilitation Department * Plan of Care - Kerry Riggins RN - 06/30/2016 5:26 AM EDT Problem: Patient Care Overview Goal: Plan of Care Review 06/29/161999 Coping/Psychosocial Plan Of Care Reviewed With patient OUTCOME EVALUATION NOTE: OUTCOME SUMMARY: Patient slept well overnight. Pain well controlled. Voiding adequate amounts of clear yellow urine. Patient ambulated with one assist and walker. IV antibiotics continues. Will continue to monitor. PLAN MOVING FORWARD: Mobility and pain management INDIVIDUALIZED FALL PREVENTION INTERVENTIONS: Patient-specific fall risk factors per assessment: Right lower extremity weakness Assistance: SBA, 1 assist, FWW Supervision: Arms reach Surveillance: Bed locked in low position, call caldwell within reach, purposeful hourly rounding, clutter free environment Patient-specific fall prevention interventions for sensory deficits provided: N/A CPG GOAL OUTCOME EVALUATION: Continue care plan as documented. * Plan of Care - Margaux Graham RN - 06/29/2016 5:21 PM EDT Problem: Skin Integrity Impairment, Risk/Actual (Adult) Goal: Identify Related Risk Factors and Signs and Symptoms Related risk factors and signs and symptoms are identified upon initiation of Human Response Clinical Practice Guideline (CPG) Outcome: Ongoing (Interventions Implemented as Appropriate) 06/29/16 1715 Skin Integrity Impairment, Risk/Actual Skin Integrity Impairment, Risk/Actual: Related Risk Factors surgery/procedure OUTCOME EVALUATION NOTE: OUTCOME SUMMARY: Patient resting comfortably since arriving from PACU. Patient reporting very little pain, well controlled. Dressing to right hip clean, dry, intact. CSMs intact. Patient not OOB yet. IV fluids continued, IV sites benign. Patient DTV at this time. Will continue to monitor. PLAN MOVING FORWARD: Pain control, ambulate INDIVIDUALIZED FALL PREVENTION INTERVENTIONS: Patient-specific fall risk factors per assessment: [current deficits]: Pain, recent surgery, medications, IV infusing Assistance [level of assistance required for transfers and ambulation]: Not OOB yet Supervision [direct monitoring required during toileting and ADLs]: Hands on with ADLs Surveillance [continuous indirect monitoring]: Purposeful rounding, masimo Patient-specific fall prevention interventions for sensory deficits provided, if applicable: n/a CPG GOAL OUTCOME EVALUATION: * Op Note - Walter Rae MD - 06/29/2016 10:49 AM EDT [facility] [place] Patient Name: Gunnar Morin : [id number] MR#: [id number] Case Date: 06/29/2016 Surgeon: Surgeon(s) and Role: * Walter Rae MD - Primary * Lg Simental MD - Resident-[employer] Machine Operator * Italo Hanna MD - *CONSULTING SURGEON Preoperative diagnosis: Right ELZBIETA polywear and osteolysis Postoperative diagnosis: Right ELZBIETA polywear and osteolysis Procedure(s) (LRB): @TOTAL HIP REVISION ARTHROPLASTY, COMPLETE (WRVU 30.28) (Right) MODIFIER S-ROM FEMORAL STEM DEPUY (N/A) Findings: Extensive synovitis due to poly wear. Medial acetabular osteolysis bone grafted. Trochanteric osteolysis debrided. Poly and head exchanged. Stable post-reduction. Anesthesia: General Estimated Blood Loss: 200 mL Specimens removed during surgery: None Drains: None Surgical Closure: Primary Closure - closure of [...] and Specimen details pertinent to this patient.) CLARIFICATION NEEDED: Blank. HISTORY OF PRESENT ILLNESS/SURGICAL INDICATIONS: Mr. Morin is a 71-year-old male who had a right total hip arthroplasty performed in 1996 who is having some pain in the right hip. X-rays were suggestive of asymmetric poly wear with associated osteolysis in both the greater trochanter, the femur and behind the acetabular component. Risks and benefits of proceeding with revision arthroplasty with head/liner exchange was discussed with the patient. He agreed to proceed. SURGICAL PROCEDURE: The patient was met in the preoperative holding area where a green winneb[place] was placed over his right hip as correctly identified by the patient. Surgical consent was signed after risks and benefits were reviewed with the patient. The patient was then brought back to the operative suite where he was again correctly identified and the correct site and procedure were rehearsed by the patient. He was then transferred to the operating room table in a supine position with all bony prominences well padded. Anesthesia was administered. After anesthesia was administered, the patient was turned into a lateral decubitus position. An axillary roll was placed and all bony prominences were well padded. He was subsequently prepped and draped in the usual, sterile fashion using a chlorhexidine scrub, alcohol and Chloraprep. After being sterilely draped, a surgical timeout was performed for safe surgery and all were in agreement to proceed. A dose of 3 g of IV cephazolin was given to the patient before incision was made. Incision was marked out on the lateral aspect of his femur. His old incision which was directly lateral to the greater trochanter was used for the distal aspect of the incision and then it was curved posteriorly fashion. Incision was made through the skin using a 10 blade, taken down to the subcutaneous fat. Bovie electrocautery was then used to dissect the fat down to the iliotibial fascia. A Box and lap were used to clear the fat off the fascia and demarcate a clear layer. A 15 blade was then used to martins the fascia and Morris scissors were used to spread underneath the fascia and subsequently cut the iliotibial fascia both distally and then proximally. The gluteus rena fibers were then encountered which were subsequently split and the trochanteric bursa was encountered. The bursa was removed with a Bovie electrocautery. After we had removed the trochanteric bursa, the sciatic nerve was palpated posterior to the femur and care was taken to protect it throughout the remainder of the case. It was not dissected out or sought after. After an identification of the sciatic nerve, a Charnley retractor was placed in the wound to assist with exposure. Bovie electrocautery was then used to remove the short external rotators starting with the pyriformis from their attachments on the femur. These were removed distally, as well. Pyriformis tendon was tagged with a #1 Ethibond suture. The capsulotomy was then made with Bovie electrocautery, being sure to stay along the edge of the femur during this dissection. The joint was entered and synovial fluid was subsequently encountered. Upon entering the joint, the capsule was further dissected off the femur and acetabulum proximally and distally to expose the head and cup. After the head was identified, it was dislocated from the polyethylene cup and was removed after some difficulty with a tamp and a mallet. After the head was removed, a small pocket was formed anteriorly, after removing some synovial tissue, for the femoral neck to lie in. After this was accomplished, we undertook synovectomy of apparent synovitis likely from osteolysis and after we had performed the synovectomy, our attention was then turned toward the acetabulum where the soft tissue was cleared from the rim to completely expose the metal cup and polyethylene liner. A poly-popper was first used to attempt to remove the polyethylene without success. Eventually, after much difficulty, the polyethylene was removed using osteotomes. After the polyethylene was removed, a curette was used to enter through the hole in the base of the cup to curet out the osteolysis just medial to the cup, then this area was packed with cancellous bone chips in addition to demineralized bone matrix. After this was accomplished, the acetabulum was irrigated and dried. Attention was subsequently turned toward the femur, where the stem was found to be well fixed. Osteolysis in the greater trochanter was debrided, but no bone graft was packed as there was no way to keep the bone graft within the area of osteolysis. Following removal of osteolysis from the greater trochanter, we then turned our attention to the locking ring within the Duraloc cup which was removed and subsequently replaced with a 58/70 mm dynamic locking ring. After the ring was replaced, a 36 mm +4 with a 10-degree acetabular liner was placed and found to fit snugly and with very little motion after impaction. After we placed the acetabular liner, we then placed a 36 mm +0 trial head and it was found to be stable upon examination. The trial head was subsequently removed and a 36 mm +0 metal femoral head was placed on the stem. The hip was reduced and found to continue to be stable. The hip was then irrigated with normal saline and Betadine. After the joint was irrigated, the capsule was closed with #1 Ethibond. After the capsule was closed, the iliotibial fascia was subsequently closed with Stratafix in a running fashion. The deep subcutaneous layer was then closed with 0 Vicryl in an interrupted fashion. The subcutaneous tissue was closed with 2-0 Vicryl in interrupted fashion and the skin was closed with oni. 50 mL of a cocktail consisting of clonidine, Toradol and epinephrine was injected within the soft tissues before closure. Count was correct at the end of the case. The patient was subsequently awakened from anesthesia and transferred to the hospital bed and extubated. He was transferred to the postoperative holding area in stable condition, having suffered no untoward events. Infection Bundle used? N/A * Brief Op Note - Walter Rae MD - 06/29/2016 10:12 AM EDT Brief Operative Note Patient Name: Gunnar Morin : [id number] MR#: [id number] Case Date: 06/29/2016 Surgeon: Surgeon(s) and Role: * Walter Rae MD - Primary * Lg Simental MD - Resident-[employer] Machine Operator * Italo Hanna MD - *CONSULTING SURGEON Preoperative diagnosis: Right ELZBIETA polywear and osteolysis Postoperative diagnosis: Right ELZBIETA polywear and osteolysis Procedure(s) (LRB): @TOTAL HIP REVISION ARTHROPLASTY, COMPLETE (WRVU 30.28) (Right) MODIFIER S-ROM FEMORAL STEM DEPUY (N/A) Anesthesia: General Findings: Extensive synovitis due to poly wear. Medial acetabular osteolysis bone grafted. Trochanteric osteolysis debrided. Poly and head exchanged. Stable post-reduction. Complications: None Fluids: 1800 Intraprocedure Crystalloid Total None Estimated Blood Loss: 100 mL Drains: None Disposition: awakened from anesthesia, extubated and taken to the recovery room in a stable condition, having suffered no apparent untoward event. Condition: doing well without problems Implant Name Type Inv. Item Serial No. Tile Ditcher Lot No. LRB No. Used Action BONE,CRUSHED,CANCELLOUS,10CC ([id number]) - [id number] IMPLANTS BONE,CRUSHED,CANCELLOUS,10CC ([id number])[facility] [employer] - [id number] Right 1 Implanted GRAFT,OSTB,OPM,PUTTY,10ML ([id number]) - [id number] IMPLANTS GRAFT,OSTB,OPM,PUTTY,10ML ([id number]) [facility] [employer] [id number] Right 1 Implanted RING,DURALOC,DYNAMIC,HIP,58MM ([id number]) ([employer]) - [id number] IMPLANTS RING,DURALOC,DYNAMIC,HIP,58MM ([id number]) (AUTOREQ) [employer] - [id number] Right 1 Implanted LINER,DURA,MRTH,+4,10D,[id number] ([id number]) - [id number] IMPLANTS LINER,DURA,MRTH,+4,10D,[id number] ([id number]) [employer] - [id number] Right 1 Implanted HEAD,SRM,MTL,+0MM,36MM ([id number]) ([employer]OREQ) - [id number] IMPLANTS HEAD,SRM,MTL,+0MM,36MM ([id number]) (AUTOREQ) [employer] - [id number] Right 1 Implanted Infection Bundle used? N/A Attestation: Case Date: 06/29/2016 I was present and I participated during the entire procedure (does not need to include opening and closing). (Please see the Surgical Encounter Summary for any Implant and Specimen details pertinent to this patient.) * Initial Assessments - Zuly Almazan RN - 06/29/2016 6:38 AM EDT Office of Care Management Initial Assessment ?? Source of Information: Gunnar Morin Introduced self/reviewed role; services accepted. ?? Reason for Hospitalization: Mechanical loosening of internal right hip prosthetic joint. Right total hip arthroplasty revision, complete on June 29, 2016. ?? Past??Medical??History No past medical history on file. ?? Hospitalizations Within the Past 30 Days: no ?? Anticipated Length Of Stay (If known): TBD ?? Current Decision-Making Capacity: He is capable of making his own medical decisions. ?? Advance Care Planning: yes ?? Current Coping/Education/Information Needs: He appears to understand the hospital course and discharge plans. He did have a total knee arthroplasty here at [facility] in the past. ?? Current Functional Ability: OOB dressed and anticipated d/c today ?? Functional Status Prior to Admission: He [...] Use/Abuse: None ?? Other Pertinent/Service Specific Information: no ?? Health/Prescription Coverage: Primary Insurance: Medicare A and B Secondary Insurance: BCBS [place] Prescription Coverage: BCBS Rx Preferred Pharmacy: [facility] [address] [facility] [facility] Other: None ?? Primary Care Provider: Phoenix Guzmán, ?? Patient/Caregiver Goals of Treatment: He wants to be able to mow the lawn, cut the wood, play pickle ball, ride the 4 wheelers, etc. ?? Potential Needs for Transition of Care: Rehab/SNF: No selection Home Health: [facility] [address] [place] [phone] ? The patient/front office representative has been provided a list of Home Health Agencies/DME vendors which servetheir preferred geographic area. A letter describing our affiliations was reviewed with them and they were educated about their right to choose where referrals are placed. ? Patient requests referral to [facility] [address] [place] [phone] ? Expected date of discharge: 06/30/2016 ? Referral routed to the It Risk Analyst for matching with agency/vendor and to provide any required information. ?? OP PT: [facility] A referral has been sent. DME: He has a 2, 2 FWW, crutches, 2 canes, grabbers, sock assist, shoe horn, leg title attorney, shower chair, and commode. Dialysis: No Community Resources: None Transportation: Other: None ?? Anticipated Barriers to Discharge/Special Considerations: None ?? Plan: He prefers to go home with [facility]. ? A member of the Care Management team will continue to monitor progress, follow for continuity of care and assist with transition of care planning. ?? documented in this encounter Plan of Treatment Upcoming Encounters Date Type Department Care Team (Late st Contact Info) Description 10/31/2023 9:15 AM EDT Office Visit Dermatology at [facility] [address] [place] [address] Dawson Broderick MD [facility] [place] [address] 07/23/2024 9:30 AM EDT Office Visit Dermatology at [facility] [address] [place] [address] Dawson Broderick MD [facility] [place] [address] Scheduled Referrals Name Type Priority Associated Diagnoses Order Schedule Referral for Anticoagulation Monitoring Outpatient Referral Routine Status post total replacement of right hip Ordered: 06/30/2016 documented as of this encounter Procedures Procedure Name Priority Date/Time Associated Diagnosis Comments HEMOGRAM Routine 06/30/2016 4:59 AM EDT DIFFERENTIAL, AUTOMATED Routine 06/30/2016 4:59 AM EDT PROTHROMBIN TIME Routine 06/30/2016 4:59 AM EDT CBC (WITH DIFF) Routine 06/30/2016 4:59 AM EDT BASIC METABOLIC PANEL (NON-FASTING) Routine 06/30/2016 4:59 AM EDT PROTHROMBIN TIME Routine 06/29/2016 4:38 PM EDT XR PELVIS Routine 06/29/2016 11:36 AM EDT MODIFIER S-ROM FEMORAL STEM DEPUY 06/29/2016 7:27 AM EDT Status post total replacement of right hip @TOTAL HIP REVISION ARTHROPLASTY, COMPLETE (WRVU 30.28) 06/29/2016 7:27 AM EDT Status post total replacement of right hip documented in this encounter Results * (ABNORMAL) Differential, Automated (06/30/2016 4:59 AM EDT) Neutrophils % 85.3 % [facility] Neutr Abs (ANC) 9.07(H) 1.70 - 6.10 x10(3)/ L [facility] Lymphocytes % 6.2 % [facility] Lymphocytes Abs 0.7(L) 0.9 - 3.2 x10(3)/[facility] Monocytes % 7.9 % [facility] Monocyte Abs 0.8 0.3 - 0.9 x10(3)/[facility] LABORATORY Eosinophils % 0.0 % [facility] Eosinophils Abs 0.0 0.0 - 0.4 x10(3)/[facility] LABORATORY Basophils % 0.1 % [facility] Basophils Abs 0.0 0.0 - 0.1 x10(3)/[facility] LABORATORY Immature Gran % 0.50 % [facility] Comment: Immature granulocytes(IG's)percentage and absolute count will include metamyelocytes, myelocytes, and promyelocytes. Blood smears from CBCs yielding IG's will be scanned manually for concordance. If this scan disagrees with the automated IG or if promyelocytes are noted, a manual differential will be performed. Geovanna Gran Abs 0.05(H) 0.00 - 0.04 x10(3)/ L [facility] Blood specimen (specimen) 06/30/2016 4:59 AM EDT 06/30/2016 5:20 AM EDT Narrative Resulting Agency Comment Spec In Lab Walter Rae MD [place] [address] * (ABNORMAL) Hemogram (06/30/2016 4:59 AM EDT) WBC 10.6(H) 4.0 - 9.5 x10(3)/[facility] LABORATORY RBC 4.08(L) 4.58 - 5.54 x10(6)/[facility] LABORATORY Hemoglobin 13.2(L) 13.7 - 16.5 gm/dL [facility] [place]ematocrit 39.2(L) 40.5 - 48.5 % [facility] MCV 96.1(H) 82.9 - 93.1 fL [facility] MCH 32.4(H) 27.5 - 32.1 pg [facility] [place] MCHC 33.7 32.0 - 35.7 gm/dL [facility] [place] Platelets 197 145 - 357 x10(3)/[facility] [place] [place] RDWSD 45.3(H) 36.0 - 45.0 [facility] LABORATORY RDWCV 12.8 11.4 - 13.8 % [facility] MPV 10.0 7.6 - 12.9 [facility] nRBC % Auto 0.0 % [facility] nRBC Abs Auto 0.000 0.000 - 0.000 x10(3)/[facility] LABOR[facility]ORY Blood specimen (specimen) 06/30/2016 4:59 AM EDT 06/30/2016 5:20 AM EDT Narrative Resulting Agency Comment Spec In Lab Walter Rae MD [place] [address] * Prothrombin Time (06/30/2016 4:59 AM EDT) Pathologist [facility] PT 13.8 12.0 - 15.0 sec [facility] Comment: An INR <2.0 indicates [...] clinical circumstances. INR 1.0 0.9 - 1.1 [facility] Blood specimen (specimen) 06/30/2016 4:59 AM EDT 06/30/2016 5:20 AM EDT Narrative Resulting Agency Comment Spec In Lab Walter Rae MD HEMATOLOGY ORDERABLE S [facility] [place] [address] * (ABNORMAL) Basic Metabolic Panel (non-fasting) (06/30/2016 4:59 AM EDT) Glucose Lvl 147 65 - 199 mg/dL [facility] Comment:Diabetes: >=200 mg/d L plus symptoms BUN 15 10 - 20 mg/dL [facility] Creatinine 1.12 0.80 - 1.50 mg/dL [facility] Comment: Please note that the pediatric reference intervals supplied above [place] [facility] [place] Results from pediatric patients should be interpreted in conjunction to the patient's age, height and muscle mass. Sodium 140 135 - 145 mmol/L [facility] Potassium 5.1(H) 3.5 - 5.0 mmol/L [facility] Comment: Please note: ??Patients with WBC >100,000 may have falsely elevated Potassium levels. ??For accurate Potassium quantification in these patients send serum separator tube (gold top) for subsequent determinations. ??Contact the Clinical Chemistry Laboratory if there are any questions. Chloride 102 98 - 107 mmol/L [facility] CO2 26 22 - 31 mmol/L [facility] Anion Gap 12 5 - 15 mmol/L [facility] Calcium 8.4(L) 8.5 - 10.5 mg/dL [facility] Estimated GFR >60 >=60 [facility] Comment: This estimated GFR (eGFR) [...] the following links into your internet browser. [email or web address] Blood specimen (specimen) 06/30/2016 4:59 AM EDT 06/30/2016 5:20 AM EDT Narrative Resulting Agency Comment Spec In Lab Walter Rae MD CHEMISTRY ORDERABLES Performing Organization Address [facility] Co de Phone Number [facility] [place] [address] * Prothrombin Time (06/29/2016 4:38 PM EDT) PT 13.6 12.0 - 15.0 sec [facility] Comment: An INR <2.0 indicates [...] clinical circumstances. INR 1.0 0.9 - 1.1 [facility] Blood specimen (specimen) 06/29/2016 4:38 PM EDT 06/29/2016 4:42 PM EDT Narrative Resulting Agency Comment Spec In Lab Walter Rae MD HEMATOLOGY ORDERABLE S Performing Organization Address [facility]/ZIP Co de Phone Number [facility] [place] [address] * XR Pelvis (Generic) (06/29/2016 11:36 AM EDT) Anatomical Region Laterality Modality Pelvis N/A Digital Radiogra phy Impressions 06/29/2016 11:43 AM EDT Right hip prosthesis revision without complication Narrative 06/29/2016 11:43 AM EDT EXAMINATION: XR PELVIS (GENERIC) CLINICAL HISTORY: s/p revision R ELZBIETA. TECHNIQUE: AP pelvis COMPARISON: April 12, 2016 FINDINGS: A right hip prosthesis is present. The prosthesis is well-positioned. This prosthesis has been revised since the prior examination. Gas within the adjacent soft tissues is consistent with recent surgery. Surgical skin oni are present. Procedure Note Geraldo Lau MD - 06/29/2016 EXAMINATION: XR PELVIS (GENERIC) CLINICAL HISTORY: s/p revision R ELZBIETA. TECHNIQUE: AP pelvis COMPARISON: April 12, 2016 FINDINGS: A right hip prosthesis is present. The prosthesis is well-positioned.This prosthesis has been revised since the prior examination. Gas within theadjacent soft tissues is consistent with recent surgery. Surgical skin staplesare present. 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 documented in this encounter Administered Medications Inactive Administered Medications - up to 3 most recent administrations Medication Order MAR Action Action Date Dose Rate Site acetaminophen (TYLENOL) tablet 1,000 mg 1,000 mg, Oral, ONCE, 1 dose, On Mon06/29/16 at 0630, Maximum dose of acetaminophen is 4000 mg from all sources in 24 hours., Day of Surgery (Day of Procedure), Routine Given 06/29/2016 6:21 AM EDT 1,000 mg acetaminophen (TYLENOL) tablet 1,000 mg 1,000 mg, Oral, EVERY 8 HOURS SCHEDULED, First dose on Mon06/29/16 at 1400, Until Discontinued, Maximum dose of acetaminophen is 4000 mg from all sources in 24 hours., Recovery (Recovery-Hospital Unit), Routine Given 06/30/2016 2:44 PM EDT 1,000 mg Given 06/30/2016 6:18 AM EDT 1,000 mg Given 06/29/2016 10:07 PM EDT 1,000 mg aspirin EC tablet 81 mg 81 mg, Oral, DAILY, First dose on Mon06/30/16 at 0900, Until Discontinued, Recovery (Recovery-Hospital Unit), Routine Given 06/30/2016 9:35 AM EDT 8 1 mg carvedilol (COREG) tablet 12.5 mg 12.5 mg, Oral, 2 TIMES DAILY WITH MEALS, First dose on Mon06/29/16 at 1700, Until Discontinued, Hold for SBP<100 or HR<50, Recovery (Recovery-Hospital Unit), Routine Given 06/30/2016 9:36 AM ED T 12.5 mg Given 06/29/2016 5:04 PM EDT 12.5 mg ceFAZolin (ANCEF) 1g in dextrose 5% 50mL 1,000 mg (1 g), Intravenous, EVERY 8 HOURS, 3 doses, First dose on Mon06/29/16 at 1115, Last dose on Mon06/30/16 at 0400, Administer over 30 Minutes, Adjust to 4 hours from intraoperative dose. * Beta-lactam based antibiotics (eg. Ampicillin, Cefazolin, Aztreonam) should be administered within 4 hours of the preceding intraoperative dose. * Vancomycin, Flouroquinolones, Clindamycin, Gentamicin, and Metronidazole should be administered within 8 hours of the preceding intraoperative dose., Recovery (Recovery-Hospital Unit), Indication for (Active or Suspected): Prophylaxis Given 06/30/2016 4:28 AM EDT 1,000 mg 100 mL/ hr Given 06/29/2016 8:51 PM EDT 1,000 mg 100 mL/hr Given 06/29/2016 11:59 AM EDT 1,000 mg 100 mL/hr celecoxib (CeleBREX) capsule 200 mg 200 mg, Oral, 2 TIMES DAILY, First dose on Mon06/29/16 at 2100, Until Discontinued, Recovery (Recovery-Hospital Unit), Routine Given 06/30/2016 9:37 AM EDT 2 00 mg Given 06/29/2016 8:51 PM EDT 200 mg dexamethasone (DECADRON) tablet 4 mg 4 mg, Oral, DAILY, 2 doses, First dose on Mon06/29/16 at 1700, Last dose on Mon06/30/16 at 0900, Recovery (Recovery-Hospital Unit), Routine Given 06/30/2016 9:34 AM EDT 4 mg Given 06/29/2016 5:04 PM EDT 4 mg gabapentin (NEURONTIN) capsule 300 mg 300 mg, Oral, NIGHTLY, First dose on Mon07/01/16 at 2100, Until Discontinued, Recovery (Recovery-Hospital Unit), Routine gabapentin (NEURONTIN) capsule 600 mg 600 mg, Oral, ONCE, 1 dose, On Mon06/29/16 at 0630, Day of Surgery (Day of Procedure), Routine Given 06/29/2016 6:21 AM EDT 600 mg gabapentin (NEURONTIN) capsule 600 mg 600 mg, Oral, NIGHTLY, 2 doses, First dose on Mon06/29/16 at 2100, Last dose on Mon06/30/16 at 2100, Recovery (Recovery-Hospital Unit), Routine Given 06/29/2016 8:51 PM EDT 600 mg HYDROmorphone (DILAUDID) syringe 0.2-0.4 mg 0.2-0.4 mg, Intravenous, EVERY 5 MIN PRN, Pain, Starting on Mon06/29/16 at 1049, Until Mon06/29/16 at 1440, For moderate pain (4-6) give: 0.2 mg every 5 minute prn For severe pain (7-10) give: 0.4 mg every 5 minutes prn Maximum dose: 4 mg per hour Hold for respiratory rate less than 10 per minute., PACU Recovery Given 06/29/2016 11:08 AM EDT 0.2 mg ketorolac (TORADOL) injection 15 mg 15 mg, Intravenous, EVERY 6 HOURS SCHEDULED, 4 doses, First dose on Mon06/29/16 at 1115, Last dose on Mon06/30/16 at 0600, Recovery (Recovery-Hospital Unit), Routine Given 06/30/2016 6:18 AM EDT 15 mg Given 06/29/2016 11:59 PM EDT 15 mg Given 06/29/2016 5:05 PM EDT 15 mg lactated ringers infusion 1,000 mL 1,000 mL, at 100 mL/hr, Intravenous, CONTINUOUS, Starting on Mon06/29/16 at 0630, Until Mon06/29/16 at 1440, Day of Surgery (Day of Procedure) New Bag 06/29/2016 7:28 AM EDT New Bag 06/29/2016 6:37 AM EDT 1,000 mLs 100 mL/hr lactated ringers infusion 125 mL/hr, Intravenous, CONTINUOUS, Starting on Mon06/29/16 at 1115, Until Yara 06/30/16 at 0558, Recovery (Recovery-Hospital Unit) New Bag 06/29/2016 8:50 PM EDT 125 mL/hr 125 mL /hr New Bag 06/29/2016 11:10 AM EDT 125 mL/hr 125 mL/hr lidocaine (XYLOCAINE) 10 mg/mL (1 %) injection 3 mg 3 mg (0.3 mL), Subcutaneous, ONCE PRN, 1 dose, Starting on Mon06/29/16 at 0608, Until Mon06/29/16 at 0637, for discomfort with PIV insertion, Day of Surgery (Day of Procedure), Routine Given 06/29/2016 6:37 AM EDT 3 mg multivitamin Mcnt-Mt-JR-Min (THERAPEUTIC-M) 27-0.4 mg tablet 1 tablet 1 tablet, Oral, DAILY, First dose on Mon06/29/16 at 1700, Until Discontinued, Recovery (Recovery-Hospital Unit) Given 06/30/2016 9:37 AM EDT 1 tablet Given 06/29/2016 5:04 PM EDT 1 tablet ondansetron (ZOFRAN) injection 4 mg 4 mg, Intravenous, EVERY 8 HOURS PRN, Starting on Mon06/29/16 at 1453, Until Yara 06/30/16 at 1725, Nausea, May repeat times one in 30 minutes if ineffective. If multiple antiemetics are ordered, use ondanstron first, Recovery (Recovery-Hospital Unit) ondansetron (ZOFRAN) tablet 4 mg 4 mg, Oral, EVERY 8 HOURS PRN, Starting on Mon06/29/16 at 1453, Until Yara 06/30/16 at 1725, Nausea, Vomiting, If multiple antiemetics are ordered, use ondansetron first. PO Preferred. If patient unable to take PO, may give IV if ordered. May repeat times one in 45 minutes if ineffective., Recovery (Recovery-Hospital Unit), Routine pantoprazole (PROTONIX) tablet 20 mg 20 mg, Oral, DAILY, First dose on Mon06/29/16 at 1700, Until Discontinued, DO NOT CRUSH OR OPEN, Recovery (Recovery-Hospital Unit) Given 06/30/2016 9:37 AM EDT 20 mg Given 06/29/2016 5:05 PM EDT 20 mg polyethylene glycol (MIRALAX) packet 17 g 17 g, Oral, 2 TIMES DAILY, First dose on Mon06/29/16 at 2100, Until Discontinued, Recovery (Recovery-Hospital Unit), Routine Given 06/30/2016 9:38 AM EDT 17 g Given 06/29/2016 8:51 PM EDT 17 g senna-docusate (PERICOLACE) 8.6-50 mg per tablet 2 tablet 2 tablet, Oral, 2 TIMES DAILY, First dose on Mon06/29/16 at 2100, Until Discontinued, Recovery (Recovery-Hospital Unit), Routine Given 06/30/2016 9:38 AM EDT 2 tablets Given 06/29/2016 8:51 PM EDT 2 tablets simvastatin (ZOCOR) tablet 20 mg 20 mg, Oral, EVERY EVENING, First dose on Mon06/29/16 at 1700, Until Discontinued, Recovery (Recovery-Hospital Unit), Routine Given 06/29/2016 5:05 PM EDT 20 mg sodium chloride 0.9 % flush 5 mL 5 mL, Intravenous, 2 TIMES DAILY, First dose on Mon06/29/16 at 2100, Until Discontinued, Recovery (Recovery-Hospital Unit), Routine Given 06/30/2016 9:38 AM EDT 5 mLs Given 06/29/2016 9:03 PM EDT 5 mLs warfarin (COUMADIN) tablet 5 mg 5 mg, Oral, ONCE, 1 dose, On Mon06/29/16 at 1700, Recovery (Recovery-Hospital Unit), Routine Given 06/29/2016 5:06 PM EDT 5 mg warfarin (COUMADIN) tablet 5 mg 5 mg, Oral, EVERY EVENING, 1 dose, First dose (after last reorder) on Mon06/30/16 at 1700, Recovery (Recovery-Hospital Unit), Routine documented in this encounter Active and Recently Administered Medications Times are shown in EDT. Scheduled Medication Order 06/28/2016 06/29/2016 06/30/2016 acetaminophen (TYLENOL) tablet 1,000 mg (COMPLETED) 1,000 mg, Oral, ONCE, 1 dose, On Mon06/29/16 at 0630, Maximum dose of acetaminophen is 4000 mg from all sources in 24 hours., Day of Surgery (Day of Procedure), Routine 0621 (Given - Provider: Julia Kothari RN) acetaminophen (TYLENOL) tablet 1,000 mg 1,000 mg, Oral, EVERY 8 HOURS SCHEDULED, First dose on Mon06/29/16 at 1400, Until Discontinued, Maximum dose of acetaminophen is 4000 mg from all sources in 24 hours., Recovery (Recovery-Hospital Unit), Routine 1356 (Given - Provider: Starr Jesus RN)2207 (Given - Provider: Kerry Riggins, MICHAELA) 0618 (Given - Provider: Kerry Riggins, MICHAELA)1444 (Given - Provider: Indy Beltre RN) aspirin EC tablet 81 mg 81 mg, Oral, DAILY, First dose on Yara 06/30/16 at 0900, Until Discontinued, Recovery (Recovery-Hospital Unit), Routine 0935 (Given - Provid er: Indy Beltre RN) carvedilol (COREG) tablet 12.5 mg 12.5 mg, Oral, 2 TIMES DAILY WITH MEALS, First dose on Mon06/29/16 at 1700, Until Discontinued, Hold for SBP<100 or HR<50, Recovery (Recovery-Hospital Unit), Routine 1704 (Given - Provider: Margaux Graham RN) 0936 (Given - Provider: Indy Beltre RN) ceFAZolin (ANCEF) 1g in dextrose 5% 50mL (COMPLETED) 1,000 mg (1 g), Intravenous, EVERY 8 HOURS, 3 doses, First dose on Mon06/29/16 at 1115, Last dose on Yara 06/30/16 at 0400, Administer over 30 Minutes, Adjust to 4 hours from intraoperative dose. * Beta-lactam based antibiotics (eg. Ampicillin, Cefazolin, Aztreonam) should be administered within 4 hours of the preceding intraoperative dose. * Vancomycin, Flouroquinolones, Clindamycin, Gentamicin, and Metronidazole should be administered within 8 hours of the preceding intraoperative dose., Recovery (Recovery-Hospital Unit), Indication for (Active or Suspected): Prophylaxis 1159 (Given - Provider: Starr Jesus RN)2051 (Given - Provider: Kerry Riggins RN) 0428 (Given - Provider: Kerry Riggins RN) ceFAZolin (ANCEF) 3g in dextrose 5% 100 mL (COMPLETED) 3 g, Intravenous, ONCE, 1 dose, On Mon06/29/16 at 0630, Administer over 30 Minutes, Indication for (Active or Suspected): Prophylaxis 0743 (Given - Provider: Shena Mckeon CRNA) celecoxib (CeleBREX) capsule 200 mg 200 mg, Oral, 2 TIMES DAILY, First dose on Mon06/29/16 at 2100, Until Discontinued, Recovery (Recovery-Hospital Unit), Routine 2050 (Given - Provider: Kerry Riggins RN) 936 (Given - Provider: Indy Beltre RN) dexamethasone (DECADRON) tablet 4 mg (COMPLETED) 4 mg, Oral, DAILY, 2 doses, First dose on Mon06/29/16 at 1700, Last dose on Mon06/30/16 at 0900, Recovery (Recovery-Hospital Unit), Routine 1703 (Given - Provider: Margaux Graham RN) 09 (Given - Provider: Indy Beltre RN) gabapentin (NEURONTIN) capsule 300 mg(Linked Group 1) 300 mg, Oral, NIGHTLY, First dose on Mon07/01/16 at 2100, Until Discontinued, Recovery (Recovery-Hospital Unit), Routine gabapentin (NEURONTIN) capsule 600 mg (COMPLETED) 600 mg, Oral, ONCE, 1 dose, On Mon06/29/16 at 0630, Day of Surgery (Day of Procedure), Routine 620 (Given - Provider: Julia Kothari RN) gabapentin (NEURONTIN) capsule 600 mg(Linked Group 1) 600 mg, Oral, NIGHTLY, 2 doses, First dose on Mon06/29/16 at 2100, Last dose on Mon06/30/16 at 2100, Recovery (Recovery-Hospital Unit), Routine 2050 (Given - Provider: Kerry Riggins RN) ketorolac (TORADOL) injection 15 mg (COMPLETED) 15 mg, Intravenous, EVERY 6 HOURS SCHEDULED, 4 doses, First dose on Mon06/29/16 at 1115, Last dose on Mon06/30/16 at 0600, Recovery (Recovery-Hospital Unit), Routine 1107 (Given - Provider: Starr Jesus RN)1705 (Given - Provider: Margaux Graham RN)2359 (Given - Provider: Kerry Riggins RN) 0618 (Given - Provider: Kerry Riggins RN) multivitamin Hscu-Kj-OJ-Min (THERAPEUTIC-M) 27-0.4 mg tablet 1 tablet 1 tablet, Oral, DAILY, First dose on Mon06/29/16 at 1700, Until Discontinued, Recovery (Recovery-Hospital Unit) 1704 (Given - Provider: Margaux Graham RN) 0937 (Given - Provider: Indy Beltre, MICHAELA) pantoprazole (PROTONIX) tablet 20 mg 20 mg, Oral, DAILY, First dose on Mon06/29/16 at 1700, Until Discontinued, DO NOT CRUSH OR OPEN, Recovery (Recovery-Hospital Unit) 170 (Given - Provider: Margaux Graham RN) 0937 (Given - Provider: Indy Beltre, MICHAELA) polyethylene glycol (MIRALAX) packet 17 g 17 g, Oral, 2 TIMES DAILY, First dose on Mon06/29/16 at 2100, Until Discontinued, Recovery (Recovery-Hospital Unit), Routine 2050 (Given - Provider: Kerry Riggins RN) 0938 (Given - Provider: Indy Beltre, MICHAELA) senna-docusate (PERICOLACE) 8.6-50 mg per tablet 2 tablet 2 tablet, Oral, 2 TIMES DAILY, First dose on Mon06/29/16 at 2100, Until Discontinued, Recovery (Recovery-Hospital Unit), Routine 2050 (Given - Provider: Kerry Riggins RN) 0938 (Given - Provider: Indy Beltre, MICHAELA) simvastatin (ZOCOR) tablet 20 mg 20 mg, Oral, EVERY EVENING, First dose on Mon06/29/16 at 1700, Until Discontinued, Recovery (Recovery-Hospital Unit), Routine 1704 (Given - Provider: Margaux Graham RN) sodium chloride 0.9 % flush 5 mL 5 mL, Intravenous, 2 TIMES DAILY, First dose on Mon06/29/16 at 2100, Until Discontinued, Recovery (Recovery-Hospital Unit), Routine 2102 (Given - Provider: Kerry Riggins RN) 0938 (Given - Provider: Indy Beltre, MICHAELA) warfarin (COUMADIN) daily order reminder Oral, EVERY 24 HOURS, First dose on Yara 06/30/16 at 1400, Until Discontinued, If the daily warfarin order has not been placed, contact the Provider to confirm that the order will be written, the dose is held or discontinued. , Recovery (Recovery-Hospital Unit) 1400 (Dose confirmed - Provider: Indy Beltre RN) warfarin (COUMADIN) tablet 5 mg (COMPLETED) 5 mg, Oral, ONCE, 1 dose, On Mon06/29/16 at 1700, Recovery (Recovery-Hospital Unit), Routine 1706 (Given - Provider: Margaux Graham RN) warfarin (COUMADIN) tablet 5 mg 5 mg, Oral, EVERY EVENING, 1 dose, First dose (after last reorder) on Yara 06/30/16 at 1700, Recovery (Recovery-Hospital Unit), Routine Continuous Medication Order 06/28/2016 06/29/2016 06/30/2016 lactated ringers infusion 1,000 mL (CANCELED) 1,000 mL, at 100 mL/hr, Intravenous, CONTINUOUS, Starting on Mon06/29/16 at 0630, Until Mon06/29/16 at 1440, Day of Surgery (Day of Procedure) 0637 (New Bag - Provider: Cherry Kothari RN)0728 (New Bag - Provider: Shena Mckeon CRNA)0759 (Anesthesia Volume Adjustment - Provider: Shena Mckeon CRNA)0820 (Anesthesia Volume Adjustment - Provider: Shena Mckeon CRNA)0915 (Anesthesia Volume Adjustment - Provider: Shena Mckeon CRNA)1015 (Anesthesia Volume Adjustment - Provider: Shena Mckeon CRNA) lactated ringers infusion (CANCELED) 125 mL/hr, Intravenous, CONTINUOUS, Starting on Mon06/29/16 at 1115, Until Yara 06/30/16 at 0558, Recovery (Recovery-Hospital Unit) 1110 (New Bag - Provider: Starr Jesus, MICHAELA)2050 (New Bag - Provider: Kerry Riggins RN) PRN Medication Order 06/28/2016 06/29/2016 06/30/2016 bisacodyl (DULCOLAX) EC tablet 10 mg 10 mg, Oral, 2 TIMES DAILY PRN, Starting on Mon06/29/16 at 1453, Until Yara 06/30/16 at 1725, Constipation, DO NOT CRUSH OR OPEN Administer if needed per patient's routine or if no bowel movement within 48 hours to achieve: 1) One bowel movement at least every 48 hours, AND 2) Without straining. If multiple bowel medications ordered, consider adding bisacodyl if polyethylene glycol (MIRALAX), docusate/senna, or lactulose not sufficient., Recovery (Recovery-Hospital Unit), Routine bisacodyl (DULCOLAX) suppository 10 mg 10 mg, Rectal, DAILY PRN, Starting on Mon06/29/16 at 1453, Until Yara 06/30/16 at 1725, Constipation, Administer if needed per patient's routine or if no bowel movement within 48 hours to achieve: 1) One bowel movement at least every 48 hours, AND 2) Without straining. If multiple bowel medications ordered, consider adding bisacodyl if polyethylene glycol (MIRALAX), docusate/senna, or lactulose not sufficient. If patient unable to take PO, may give [place] if ordered, Recovery (Recovery-Hospital Unit), Routine BUpivacaine-EPINEPHrine 0.25 %-1:200,000 injection (CANCELED) ONCE PRN, Starting on Mon06/29/16 at 0818, Until Yara 06/30/16 at 1725, Intra-Operative (Intra-Procedure), Routine 0818 (Given - Provider: Garfield Rae MD - Comment: Mixed with clonidine and ketorolac and injected into right hip.) cloNIDine injection (CANCELED) ONCE PRN, Starting on Mon06/29/16 at 0820, Until Yara 06/30/16 at 1725, Intra-Operative (Intra-Procedure), Routine 0820 (Given - Provider: Garfield Rae MD - Comment: Mixed with bupivacaine with epinephrine and ketorolac and injected into right hip.) HYDROmorphone (DILAUDID) syringe 0.2-0.4 mg (CANCELED) 0.2-0.4 mg, Intravenous, EVERY 5 MIN PRN, Pain, Starting on Mon06/29/16 at 1049, Until Mon06/29/16 at 1440, For moderate pain (4-6) give: 0.2 mg every 5 minute prn For severe pain (7-10) give: 0.4 mg every 5 minutes prn Maximum dose: 4 mg per hour Hold for respiratory rate less than 10 per minute., PACU Recovery 1108 (Given - Provider: Cassandra Jesus RN) ketorolac (TORADOL) injection (CANCELED) ONCE PRN, Starting on Mon06/29/16 at 0820, Until Yara 06/30/16 at 1725, Intra-Operative (Intra-Procedure), Routine 0820 (Given - Provider: Garfield Rae MD - Comment: Mixed with bupivacaine with epinephrine and clonidine and injected into right hip.) lactulose (CHRONULAC) 20 gram/30 mL oral solution 20-40 g 20-40 g (30-60 mL), Oral, DAILY PRN, Starting on Mon06/29/16 at 1453, Until Yara 06/30/16 at 1725, Constipation, Administer if needed per patient's routine [...] polyethylene glycol (MIRALAX) or docusate/senna not sufficient., Recovery (Recovery-Hospital Unit), Routine lidocaine (XYLOCAINE) 10 mg/mL (1 %) injection 3 mg (COMPLETED) 3 mg (0.3 mL), Subcutaneous, ONCE PRN, 1 dose, Starting on Mon06/29/16 at 0608, Until 06/29/16 at 0637, for discomfort with PIV insertion, Day of Surgery (Day of Procedure), Routine 0637 (Given - Provider: Tracy Kothari RN) lidocaine (XYLOCAINE) 10 mg/mL (1 %) injection 3 mg 3 mg (0.3 mL), Subcutaneous, ONCE PRN, 1 dose, Starting on Mon06/29/16 at 1453, Until Yara 06/30/16 at 1725, for discomfort with PIV insertion, Recovery (Recovery-Hospital Unit), Routine ondansetron (ZOFRAN) injection 4 mg(Linked Group 2) 4 mg, Intravenous, EVERY 8 HOURS PRN, Starting on Mon06/29/16 at 1453, Until Yara 06/30/16 at 1725, Nausea, May repeat times one in 30 minutes if ineffective. If multiple antiemetics are ordered, use ondanstron first, Recovery (Recovery-Hospital Unit) ondansetron (ZOFRAN) tablet 4 mg(Linked Group 2) 4 mg, Oral, EVERY 8 HOURS PRN, Starting on Mon06/29/16 at 1453, Until Yara 06/30/16 at 1725, Nausea, Vomiting, If multiple antiemetics are ordered, use ondansetron first. PO Preferred. If patient unable to take PO, may give IV if ordered. May repeat times one in 45 minutes if ineffective., Recovery (Recovery-Hospital Unit), Routine oxyCODONE (ROXICODONE) immediate release tablet 5-15 mg 5-15 mg, Oral, EVERY 4 HOURS PRN, Starting on Mon06/29/16 at 1059, Until Yara 06/30/16 at 1725, Pain, Give 5 mg for mild pain (1-3), 10 mg for moderate pain (4-6) or 15 mg for severe pain (7-10) May give an additional 5 mg in 30 minutes ONCE if pain not relieved., Recovery (Recovery-Hospital Unit), Routine sodium chloride 0.9 % flush 5-20 mL 5-20 mL, Intravenous, EVERY 1 MIN PRN, Starting on Mon06/29/16 at 1453, Until Yara 06/30/16 at 1725, flush, Flush pertains to all indwelling lines. Flush per protocol found in the job aid using the link provided on this medication record., Recovery (Recovery-Hospital Unit), Routine Linked Groups Order Group 1: gabapentin (NEURONTIN) capsule 600 mgJump to med 600 mg, Oral, NIGHTLY, 2 doses, First dose on Mon06/29/16 at 2100, Last dose on Yara 06/30/16 at 2100, Recovery (Recovery-Hospital Unit), Routine Followed by gabapentin (NEURONTIN) capsule 300 mgJump to med 300 mg, Oral, NIGHTLY, First dose on Mon07/01/16 at 2100, Until Discontinued, Recovery (Recovery-Hospital Unit), Routine Group 2: ondansetron (ZOFRAN) tablet 4 mgJump to med 4 mg, Oral, EVERY 8 HOURS PRN, Starting on Mon06/29/16 at 1453, Until Yara 06/30/16 at 1725, Nausea, Vomiting, If multiple antiemetics are ordered, use ondansetron first. PO Preferred. If patient unable to take PO, may give IV if ordered. May repeat times one in 45 minutes if ineffective., Recovery (Recovery-Hospital Unit), Routine Or ondansetron (ZOFRAN) injection 4 mgJump to med 4 mg, Intravenous, EVERY 8 HOURS PRN, Starting on 06/29/16 at 1453, Until Yara 06/30/16 at 1725, Nausea, May repeat times one in 30 minutes if ineffective. If multiple antiemetics are ordered, use ondanstron first, Recovery (Recovery- Hospital Unit) documented in this encounter Care Teams Continuous Improvement Intern Relationship Specialty Start Date End Date Phoenix Guzmán DO [address] [place] [address] [place] [address] PCP - General General Internal Medicine 02/20/15 documented as of this encounter
--- OUTSIDE RECORDS SUMMARY | 2023-10-23 09:08 | XMS_ITS | Encounter Summary ---
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 Procedures PRO REVISE TOTAL HIP REPLACEMENT @TOTAL HIP REVISION ARTHROPLASTY, COMPLETE (WRVU 30.28) MODIFIER S-ROM FEMORAL STEM DEPUY Referral ID Status Reason Start Date Expiration Date Visits Re quested Visits Authorized [id number] 1 1 Encounter Details Date Type Department Care Team (Late st Contact Info) Description 06/29/2016 7:30 AM EDT - 06/29/2016 10:28 AM EDT [place] [id number] Walter Rae MD [facility] [place] [address] @TOTAL HIP REVISION ARTHROPLASTY, COMPLETE (WRVU 30.28) [...] Sign Reading Time Taken Comments Blood Pressure 131/70 06/29/2016 6:14 AM EDT Pulse 72 06/29/2016 6:14 AM EDT Temperature 36.7 ??C (98.1 ??F) 06/29/2016 6:14 AM ED T Respiratory Rate 18 06/29/2016 6:14 AM EDT Oxygen Saturation 98% 06/29/2016 6:14 AM EDT Inhaled Oxygen Concentration - - Weight 132.9 kg (293 lb) 06/29/2016 6:14 AM EDT Height 182.9 cm (6') 06/29/2016 6:14 AM EDT Body Mass Index 39.74 06/29/2016 6:14 AM EDT documented in this encounter Discharge Summaries * Nellie Guzman PA - 06/30/2016 12:38 PM EDT Discharge Summary Patient Name: Gunnar Morin Patient Age: 71 y.o. Language: Bulgarian Race: White Ethnicity: Not nor Admit date: 06/29/2016 Discharge date and time: 06/30/2016 Attending Physician: Walter Rae MD Discharge Physician: Walter Rae MD Follow-up Recommendations for Providers: See discharge instructions for additional details. Future Appointments Date Time Provider Department Center 07/28/2016 9:30 AM ORTHO DIRECTOR STYLE [facility] 07/28/2016 10:50 AM Walter Rae MD [facility] Inpatient Provider Contact Information: Walter Rae MD Orthopedics: [phone] After hours and weekends, call [facility] Automatic Buffing Wheel Former, , and have the Orthopedic resident paged. [...] - Primary * Lg Simental MD - Resident-Fruit Rancher * Italo Hanna MD - *CONSULTING SURGEON [...] 4.5 4.6 CL 102 99 101 CO2 29 26 BUN 15 18 23* CREATININE [...] tissuesis consistent with recent surgery. Surgical skin michoacano are present. Right hip prosthesis revision without [...] please call the Orthopedic Clinic Nurse at [phone] for further dose instructions. If it is after 5pm or on the weekends, the Orthopedic resident station engineer will be managing your dosing (please call [phone] and ask for them to be paged). [...] not take or discontinue any prescription or iuaj-qjf-aaovtza medications without asking your doctor or pharmacist [...] bowel movement. You can also take an cqpb-ewn-ngbqbjb medication, Miralax if needed to combat constipation. [...] 1. You will have follow-up appointments at [facility] as indicated below in Future Appointment and Orders. 2. You will need to have x-rays prior to your follow-up appointment on 07/28/16. Please come to Radiology, desk 3T, 1 hour BEFORE that appointment for these x-rays. Future Appointments Date Time Provider Department Center 07/28/2016 9:30 AM ORTHO DIRECTOR ST[facility] 07/28/2016 10:50 AM [...] Department Dept Phone 07/28/2016 9:30 AM ORTHO DIRECTOR STYLE [facility] [phone] 07/28/2016 10:50 AM Walter Rae MD Orthopaedics [phone] Future Orders Complete By Expires Referral for Anticoagulation Monitoring [IWB180 Custom] As directed Process Instructions: If no progress note charted, please enter Clinical details in comments. Scheduling Instructions: Questions: INR Goal: 2.0-3.0 Responsible Group: [facility] Target End Date: 07/29/2016 Next due INR: 07/01/2016 Risk Factors: My question or request is: home with VNA Referral to Home Health - at DISCHARGE [WBQ3470 CPT(R)] As directed Process Instructions: Scheduling Instructions: Comments: DOCUMENTATION FOR VNA SERVICES (INCLUDING THOSE PATIENTS WITH MEDICARE COVERAGE REQUIRING HOME VNA SERVICES AND/OR HOSPICE SERVICES) Gunnar Chau Patience Dis[place] to [place] [address] [place] [address] (home) Telephone Information: Pole Peeling 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 PHONE: [phone] FAX: [phone] Home care orders for Total Hip Replacements w PT services only. Longterm(SN) eval if indicated on admission visit 1. Draw PT/INR as follows: per MD orders. Please draw on 07/01/16 Thereafter, PT/INR: every Monday and x 4 weeks Point of care testing is acceptable to obtain results PT/INR results to be called to the following: [facility] Orthopedic anticoagulation (Coumadin) clinic @ ; 2. [...] services. Questions: Agency name and contact information: [facility] Patient location post discharge: [address] [facility] What services are requested: Registered Nurse Start date: Responsible MD post discharge contact info: PCP Primary Care Provider: Phoenix Guzmán DO [phone] Discharge References/Attachments None documented in this encounter [...] please call the Orthopedic Clinic Nurse at [phone] for further dose instructions. If it is after 5pm or on the weekends, the Orthopedic resident station engineer will be managing your dosing (please call [phone] and ask for them to be paged). [...] not take or discontinue any prescription or yuzj-zfh-kbvazih medications without asking your doctor or pharmacist [...] bowel movement. You can also take an uyku-ved-ujisknk medication, Miralax if needed to combat constipation. [...] 1. You will have follow-up appointments at [facility] as indicated below in Future Appointment and Orders. 2. You will need to have x-rays prior to your follow-up appointment on 07/28/16. Please come to Radiology, desk 3T, 1 hour BEFORE that appointment for these x-rays. Future Appointments Date Time Provider Department Center 07/28/2016 9:30 AM ORTHO DIRECTOR [facility] 07/28/2016 10:50 AM Walter [...] faxed, called andgiven to MICHAELA Matthews at [facility]. * Lg Simental MD - 06/30/2016 5:53 [...] Provider Department Center 07/28/2016 9:30 AM ORTHO DIRECTOR STYLE [facility] 07/28/2016 10:50 AM Walter Rae MD b [facility] * Margaux Graham RN - 06/29/2016 2:47 PM EDT Pt arrived to floor from PACU after right ELZBIETA revision. Pt alert and oriented x4. Pt reports pain 0/10. Pt denies any chest pain, shortness of breath, dizziness or nausea. Refer to doc flow sheets for full assessment. in room at bedside. Patient oriented to room with call caldwell within reach. Masimo on. Will continue to monitor. * Chastity [...] [62 bpm-67 bpm] I/O this shift: In: 2227 [I.V.:2227] Out: 500 [Urine:300; Blood:200] Exam: General: NAD, [...] head-liner exchange WBAT RLE, enhanced posterior precautions Arcadia (out in 10-14 days) Mepilex Silver x [...] will let cross covering know. 1300: ortho ;phd intern made aware of broken blood vessel [...] of Care - Michelle Cavazos, PT - 06/30/2016 1:46 PM EDT Problem: [...] to Another Service: home health care Pager: [phone] MICHELLE CAVAZOS, PT 06/30/2016 Inpatient Physical Therapy * Plan [...] Anticipated Discharge Disposition: home with assist Pager: [phone] BHARGAVI MICHELLE OT 06/30/2016 Occupational Therapy Rehabilitation [...] ADLs Surveillance [continuous indirect monitoring]: Purposeful rounding, gladyso Patient-specific fall prevention interventions for sensory deficits provided, if applicable: n/a CPG GOAL OUTCOME EVALUATION: * Op Note - Walter Rae MD - 06/29/2016 10:49 AM EDT [facility] Operative Note Patient Name: Gunnar Morin : [id number] MR#: [id number] Case Date: 06/29/2016 Surgeon: Surgeon(s) and Role: * Walter Rae MD - Primary * Lg Simental MD - Resident-Fruit Rancher * Italo Hanna MD - *CONSULTING SURGEON [...] the preoperative holding area where a green qawalangin was placed over his right hip as [...] fashion and the skin was closed with michoacano. 50 mL of a cocktail consisting of [...] Operative Note Patient Name: Gunnar Morin : [id number] MR#: [id number] Case Date: 06/29/2016 Surgeon: Surgeon(s) and Role: * Walter Rae MD - Primary * Lg Simental MD - Resident-Fruit Rancher * Italo Hanna MD - *CONSULTING SURGEON [...] Implant Name Type Inv. Item Serial No. Card Processing Clerk Lot No. LRB No. Used Action BONE,CRUSHED,CANCELLOUS,10CC ([id number]) - [id number] IMPLANTS BONE,CRUSHED,CANCELLOUS,10CC ([id number])[facility] - [id number] Right 1 Implanted GRAFT,OSTB,OPM,PUTTY,10ML ([id number]) - [id number] IMPLANTS GRAFT,OSTB,OPM,PUTTY,10ML ([id number]) [facility] [employer] - [id number] Right 1 Implanted RING,DURALOC,DYNAMIC,HIP,58MM ([id number]) (AUTOREQ) - [id number] IMPLANTS RING,DURALOC,DYNAMIC,HIP,58MM ([id number]) (AUTOREQ) [employer] Tech - [id number] Right 1 Implanted LINER,DURA,MRTH,+4,10D,[id number] ([id number]) - [id number] IMPLANTS LINER,DURA,MRTH,+4,10D,[id number] ([id number]) [employer] Special Effects Makeup Artist - [id number] Right 1 Implanted HEAD,SRM,MTL,+0MM,36MM ([id number]) (AUTOREQ) - [id number] IMPLANTS HEAD,SRM,MTL,+0MM,36MM ([id number]) (AUTOREQ) [employer] Special Effects Makeup Artist - [id number] Right 1 Implanted Infection Bundle used? N/A [...] have a total knee arthroplasty here at [facility] in the past. ?? Current Functional Ability: [...] A and B Secondary Insurance: BCBS [facility] Prescription Coverage: BCBS Rx Preferred Pharmacy: [facility] [address] [facility] Other: None ?? Primary Care Provider: Phoenix Guzmán, DO [phone] ?? Patient/Caregiver Goals of Treatment: He wants to be able to mow the lawn, cut the wood, play pickle ball, ride the 4 wheelers, etc. ?? Potential Needs for Transition of Care: Rehab/SNF: No selection Home Health: [facility] [address] [place] [id number] ? The patient/manufacturer's representative has been provided a list of Home Health Agencies/DME vendors which servetheir preferred geographic area. A letter describing our affiliations was reviewed with them and they were educated about their right to choose where referrals are placed. ? Patient requests referral to [facility] [address] [place] [id number] ? Expected date of discharge: 06/30/2016 ? Referral routed to the Cell Tender for matching with agency/vendor and to provide any required information. ?? OP PT: [facility] A referral has been sent. DME: He has a 2, 2 FWW, crutches, 2 canes, grabbers, sock assist, shoe horn, leg supply crib attendant, shower chair, and commode. Dialysis: No Community [...] 9:15 AM EDT Office Visit Dermatology at [facility] [address] [place] [address] Dawson Broderick MD [facility] DR MYKE [place] [address] 07/23/2024 9:30 AM EDT Office Visit Dermatology at [facility] [address] [place] [id number] Dawson Broderick MD [facility] DR MYKE [place] [address] Scheduled Referrals Name Type Priority Associated Diagnoses [...] 4:59 AM EDT) Neutrophils % 85.3 % [facility] Neutr Abs (ANC) 9.07(H) 1.70 - 6.10 x10(3)/mc L [facility] Lymphocytes % 6.2 % [facility] Lymphocytes Abs 0.7(L) 0.9 - 3.2 x10(3)/mc L [facility] Monocytes % 7.9 % [facility] Monocyte Abs 0.8 0.3 - 0.9 x10(3)/[facility] Eosinophils % 0.0 % [facility] Eosinophils Abs 0.0 0.0 - 0.4 x10(3)/[facility] Basophils % 0.1 % [facility] Basophils Abs 0.0 0.0 - 0.1 x10(3)/[facility] Immature Gran % 0.50 % [facility] Comment: Immature granulocytes(IG's)percentage and absolute count will include metamyelocytes, myelocytes, and promyelocytes. Blood smears from CBCs yielding IG's will be scanned manually for concordance. If this scan disagrees with the automated IG or if promyelocytes are noted, a manual differential will be performed. Geovanna Gran Abs 0.05(H) 0.00 - 0.04 x10(3)/[facility] Blood specimen (specimen) 06/30/2016 4:59 AM EDT 06/30/2016 5:20 AM EDT Narrative Resulting Agency Comment Spec In Lab Walter Rae MD HEMATOLOGY ORDERABLE S [facility] [address] * (ABNORMAL) Hemogram (06/30/2016 4:59 AM EDT) WBC 10.6(H) 4.0 - 9.5 x10(3)/[facility] RBC 4.08(L) 4.58 - 5.54 x10(6)/[facility] Hemoglobin 13.2(L) 13.7 - 16.5 gm/dL [facility] Hematocrit 39.2(L) 40.5 - 48.5 % [facility] MCV 96.1(H) 82.9 - 93.1 fL [facility] MCH 32.4(H) 27.5 - 32.1 pg [facility] MCHC 33.7 32.0 - 35.7 gm/dL [facility] Platelets 197 145 - 357 x10(3)/[facility] RDWSD 45.3(H) 36.0 - 45.0 fL [facility] RDWCV 12.8 11.4 - 13.8 % [facility] MPV 10.0 7.6 - 12.9 fL [facility] nRBC % Auto 0.0 % [facility] nRBC Abs Auto 0.000 0.000 - 0.000 x10(3)/[facility] Blood specimen (specimen) 06/30/2016 4:59 AM EDT 06/30/2016 5:20 AM EDT Narrative Resulting Agency Comment Spec In Lab Walter Rae MD HEMATOLOGY ORDERABLE S [facility] [place] [address] * Prothrombin Time (06/30/2016 4:59 AM EDT) PT 13.8 12.0 - 15.0 sec [facility] Comment: An INR <2.0 indicates [...] clinical circumstances. INR 1.0 0.9 - 1.1 [facility] Blood specimen (specimen) 06/30/2016 4:59 AM EDT 06/30/2016 5:20 AM EDT Narrative Resulting Agency Comment Spec In Lab Walter Rae MD HEMATOLOGY ORDERABLE S [facility] [place] [address] * (ABNORMAL) Basic Metabolic Panel (non-fasting) (06/30/2016 4:59 AM EDT) Glucose Lvl 147 65 - 199 mg/dL [facility] Comment:Diabetes: >=200 mg/d L plus symptoms BUN 15 10 - 20 mg/dL [facility] Creatinine 1.12 0.80 - 1.50 mg/dL [facility] Comment: Please note that the pediatric reference intervals supplied above were not validated at [facility]. Results from pediatric patients should be interpreted in conjunction to the patient's age, height and muscle mass. Sodium 140 135 - 145 mmol/L [facility] Potassium 5.1(H) 3.5 - 5.0 mmol/L [facility] Comment: Please note: ??Patients with WBC >100,000 may have falsely elevated Potassium levels. ??For accurate Potassium quantification in these patients send serum separator tube (gold top) for subsequent determinations. ??Contact the Clinical Chemistry Laboratory if there are any questions. Chloride 102 98 - 107 mmol/L [facility] CO2 26 22 - 31 mmol/L [facility] Anion Gap 12 5 - 15 mmol/L [facility] Calcium 8.4(L) 8.5 - 10.5 mg/dL [facility] Estimated GFR >60 >=60 [facility] Comment: This [...] the following links into your internet browser. [email or web address] Blood specimen (specimen) 06/30/2016 4:59 AM EDT 06/30/2016 5:20 AM EDT Narrative Resulting Agency Comment Spec In Lab Walter Rae MD CHEMISTRY ORDERABLES Performing Organization Address [facility] de Phone Number [facility] [place] [address] * Prothrombin Time (06/29/2016 4:38 PM EDT) PT 13.6 12.0 - 15.0 sec [facility] Comment: An INR <2.0 indicates [...] clinical circumstances. INR 1.0 0.9 - 1.1 [facility] Blood specimen (specimen) 06/29/2016 4:38 PM EDT 06/29/2016 4:42 PM EDT Narrative Resulting Agency Comment Spec In Lab Walter Rae MD HEMATOLOGY ORDERABLE S Performing Organization Address [facility] de Phone Number [facility] [place] [address] * XR Pelvis (Generic) (06/29/2016 11:36 AM [...] is consistent with recent surgery. Surgical skin michoacano are present. Procedure Note Geraldo Lau MD [...] Unit), Routine Given 06/30/2016 9:35 AM EDT 81 mg BUpivacaine-EPINEPHrine 0.25 %-1:200,000 injection ONCE PRN, Starting on Mon06/29/16 at 0818, Until Yara 06/30/16 at 1725, Intra-Operative (Intra-Procedure), Routine Given 06/29/2016 8:18 AM EDT 50 mLs 19- Surgical Site carvedilol (COREG) tablet 12.5 mg 12.5 mg, Oral, 2 TIMES DAILY WITH MEALS, First dose on Mon06/29/16 at 1700, Until Discontinued, Hold for SBP<100 or HR<50, Recovery (Recovery-Hospital Unit), Routine Given 06/30/2016 9:36 AM EDT 12.5 mg Given 06/29/2016 5:04 PM EDT 12.5 mg celecoxib (CeleBREX) capsule 200 mg 200 mg, Oral, 2 TIMES DAILY, First dose on Mon06/29/16 at 2100, Until Discontinued, Recovery (Recovery-Hospital Unit), Routine Given 06/30/2016 9:37 AM EDT 2 00 mg Given 06/29/2016 8:51 PM EDT 200 mg cloNIDine injection ONCE PRN, Starting on Mon06/29/16 at 0820, Until Yara 06/30/16 at 1725, Intra-Operative (Intra-Procedure), Routine Given 06/29/2016 8:20 AM EDT 50 mcg 19- Surgical Site gabapentin (NEURONTIN) capsule 300 mg 300 mg, Oral, NIGHTLY, First dose on Mon07/01/16 at 2100, Until Discontinued, Recovery (Recovery-Hospital Unit), Routine gabapentin (NEURONTIN) capsule 600 mg 600 mg, Oral, NIGHTLY, 2 doses, First dose on Mon06/29/16 at 2100, Last dose on Mon06/30/16 at 2100, Recovery (Recovery-Hospital Unit), Routine Given 06/29/2016 8:51 PM EDT 600 mg ketorolac (TORADOL) injection ONCE PRN, Starting on Mon06/29/16 at 0820, Until Yara 06/30/16 at 1725, Intra-Operative (Intra-Procedure), Routine Given 06/29/2016 8:20 AM EDT 30 mg 19- Surgical Site multivitamin Fory-Vy-OC-Min (THERAPEUTIC-M) 27-0.4 mg tablet 1 tablet 1 [...] 06/30/16 at 1700, Recovery (Recovery-Hospital Unit), Routine documented [...] Prophylaxis 1159 (Given - Provider: Starr Jesus RN)2050 (Given - Provider: Kerry Riggins RN) 427 (Given - Provider: Kerry Riggins RN) ceFAZolin [...] 1703 (Given - Provider: Margaux Graham RN) 0934 (Given - Provider: Indy Beltre RN) gabapentin [...] Mon06/30/16 at 0600, Recovery (Recovery-Hospital Unit), Routine 110 (Given - Provider: Starr Jesus RN)1704 (Given - Provider: Margaux Graham RN)235 (Given - Provider: Kerry Riggins RN) 0618 (Given - Provider: Kerry Riggins RN) multivitamin Snkl-Cl-WT-Min (THERAPEUTIC-M) 27-0.4 mg tablet 1 tablet 1 tablet, Oral, DAILY, First dose on Mon06/29/16 at 1700, Until Discontinued, Recovery (Recovery-Hospital Unit) 1703 (Given - Provider: Margaux Graham RN) 0937 (Given - Provider: Indy Beltre, MICHAELA) pantoprazole (PROTONIX) tablet 20 mg 20 mg, Oral, DAILY, First dose on Mon06/29/16 at 1700, Until Discontinued, DO NOT CRUSH OR OPEN, Recovery (Recovery-Hospital Unit) 1704 (Given - Provider: Margaux Graham RN) 0937 (Given - Provider: Indy Beltre, RN) polyethylene glycol (MIRALAX) packet 17 g [...] Riggins RN) 0938 (Given - Provider: Indy Beltre RN) warfarin (COUMADIN) daily order reminder Oral, [...] CONTINUOUS, Starting on Mon06/29/16 at 1115, Until Mon06/30/16 at 0558, Recovery (Recovery-Hospital Unit) 1110 (New Bag - Provider: Starr Jesus RN)2050 (New Bag - Provider: Kerry Riggins RN) [...] patient unable to take PO, may give AL if ordered, Recovery (Recovery-Hospital Unit), Routine BUpivacaine-EPINEPHrine [...] Unit) documented in this encounter Care Teams Food Service Relationship Specialty Start Date End Date Phoenix Guzmán DO [address] [place] [address] [place] [address] PCP - General General Internal Medicine 02/20/15 documented as of this encounter
--- OUTSIDE RECORDS SUMMARY | 2023-10-23 09:08 | XMS_ITS | Encounter Summary ---
[place] [address] Care Team Providers Care Search Lead Name Role Phone Phoenix Guzmán DO Primary Care Provider [phone] Encounter Details Date Type Department Care Team (Late st Contact Info) Description 06/21/2016 9:30 AM EDT Notes [place] [address] Social History Tobacco Use Types Packs/Day Years [...] encounter Progress Notes * Lou Rao - 06/21/2016 9:30 AM EDT .Office of Care Management Initial Assessment Lou Rao reviewed record and discussed patient with Care Team. Source of Information: Gunnar Morin Introduced self/reviewed role; services accepted. Reason for Hospitalization: Mechanical loosening of internal right hip prosthetic joint. Right total hip arthroplasty revision, complete on June 29, 2016. No past medical history on file. Hospitalizations Within the Past 30 Days: Anticipated Length Of Stay (If known): Current Decision-Making Capacity: He is capable of making his own medical decisions. Advance Care Planning: He has an advanced directive on file in his medical record. His designated agent to make healthcare decisions for him should he become incapacitated is his , Sussy Morin. Current Coping/Education/Information Needs: He appears to understand the hospital course and discharge plans. He did have a total knee arthroplasty here at [facility] in the past. Current Functional Ability: Functional Status Prior to Admission: He ambulates independently without an assistive device. He isable to do his ADL without assistance. He drives. He is retired. Home Environment: HE LIVES IN A 2 LEVEL HOUSE WITH 3 STEPS INTO THE HOUSE WITH A POST. THERE ARE 13STEPS TO THE SECOND FLOOR WHERE THERE BEDROOM IS BUT THE BATHROOM IS ON THE SECOND FLOOR. HE TYPICALLY STAYS ON THE MAIN LEVEL AFTER SURGERY IN THE RECLINER. HE HAS A TUB SHOWER. Social & Family Supports/Community Resources: His primary caregiver(s) is going to be Sussy - she recently had a total joint replacement as well. Behavioral Health History: None Substance Use/Abuse: None Other Pertinent/Service Specific Information: I discussed with the patient the potential avenues ofdischarge postoperatively. We discussed qualifications to go to a fpc facility. We discussed Medicare guidelines for admission into a fpc facilityas well as transportation, namely, ambulance and the Medicare guidelines associated with ambulance or wheelchair vans. We discussed the purpose and services provided by [facility]. I communicated that we will not know until after surgery what will be the best course of discharge for the patient based on medical necessity and that thisis why we plan for different courses of discharge. I informed the patient that they will be workingwith a healthcare consulting manager after surgery to facilitate the discharge plan. I encouraged the patient to call me with any questions or concerns prior to the surgery as well as when they discharge home. Health/Prescription Coverage: Primary Insurance: Medicare A and B Secondary Insurance: BCBS [place] [facility] Prescription Coverage: BCBS Rx Preferred Pharmacy: [facility] [address] [facility] [place] Other: None Primary Care Provider: Phoenix Guzmán DO [phone] Patient/Caregiver Goals of Treatment: He wants to be able to mow the lawn, cut the wood, play pickle ball, ride the 4 wheelers, etc. Potential Needs for Transition of Care: Rehab/SNF: No selection Home Health: [facility] [address] [place] [id number] ?? The patient/telephone sales representative has been provided a list of Home Health Agencies/DME vendors which servetheir preferred geographic area. A letter describing our affiliations was reviewed with them and they were educated about their right to choose where referrals are placed. ?? Patient [facility] to [facility] [address] [place] [address] ? Expected date of discharge: ?? Referral routed to the [employer] for matching with agency/vendor and to provide any required information. OP PT: [facility] A referral has been sent. DME: He has a 2, 2 FWW, crutches, 2 canes, grabbers, sock assist, shoe horn, leg hat cutter, shower chair, and commode. Dialysis: No Community Resources: None Transportation: We discussed since we cannot determine the exact day or time of discharge preoperatively: His transportation must be readily available at time of discharge. He'll be transported by Other: None Anticipated Barriers to Discharge/Special Considerations: None Plan: He prefers to go home with [facility]. A member of the Care Management team will continue to monitor progress, follow for continuity of care and assist with transition of care planning. Lou Rao Pager: [phone] documented in this encounter Plan of Treatment Upcoming Encounters Date Type Department Care Team (Late st Contact Info) Description 10/31/2023 9:15 AM EDT Office Visit Dermatology at [facility] [address] [place] [address] Dawson Broderick MD [facility] [address] MYKE [place] [address] 07/23/2024 9:30 AM EDT Office Visit Dermatology at [facility] [address] [place] [address] Dawson Broderick MD [facility] DR MYKE [place] [address] documented as of this encounter Visit Diagnoses Not on filedocumented in this encounter Care Teams Search Lead Relationship Specialty Start Date End Date Phoenix Guzmán DO [address] [place] [address] [place] [address] PCP - General General Internal Medicine 02/20/15 documented as of this encounter
--- OUTSIDE RECORDS SUMMARY | 2023-10-23 09:08 | XMS_ITS | Encounter Summary ---
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 Procedures PRO REVISE TOTAL HIP REPLACEMENT @TOTAL HIP REVISION ARTHROPLASTY, COMPLETE (WRVU 30.28) MODIFIER S-ROM FEMORAL STEM DEPUY Referral ID Status Reason Start Date Expiration Date Visits Re quested Visits Authorized [id number] 1 1 Encounter Details Date Type Department Care Team (Late st Contact Info) Description 06/29/2016 7:28 AM EDT Anesthesia [place] [address] Melly Pickett MD [facility] [place] [address] David Mancia MD [facility] [place] [address] [phone] (work) Anesthesia Record Procedure Summary Procedure Name Responsible Anesthesiologist Anesthesia Start Time Anesthesia Stop Time @TOTAL HIP REVISION ARTHROPLASTY, COMPLETE (WRVU 30.28) (Right: Hip) Melly Pickett MD 06/29/16 0728 06/29/16 1049 Events Date Time Event Comment 06/29/2016 0703 0728 AN Verify 0728 Start 0729 An Start Data 0733 An Induction 0735 An Intubation 0743 Anesthesia Ready 0808 Procedure Start 0852 Break/Relief In Lasha Gricelda Baron r, MATERIAL CHECKER 0912 Break/Relief Out 1014 Quick Note Oropharynx suct ioned 1035 Extubation/LMA Out 1037 an stop data 1049 Recovery or ICU Handoff Charlene ent care was transferred to the destination unit staff after review of the patient's medical history, current anesthetic/surgical status and plan, according to the Provider Handoff Checklist. 1049 Stop Meds Name Total Midazolam 2 mg fentaNYL 100 mcg Propofol 250 mg Rocuronium 80 mg PHENYLephrine 840 mcg Ondansetron 4 mg ceFAZolin (ANCEF) 3g in dextrose 5% 100 mL 3 g PHENYLephrine INF 2,665 mcg HYDROmorphone 0.4 mg lactated ringers infusion 1,000 mL 1,600 mL Lactated Ringers 300 mL * Agents Name O2 Air N2O Sevoflurane (et) * Blood No blood administrations on file. Lines, Drains, and Airways Type Details Placement Removal Incision 09/07/15; knee; 11/02 12/23 (LDA cleanup utility RA#[id number]); 1715 (LDA cleanup utility RA#[id number]) 09/07/15 0000 by Mariam Vaz RN 11/29/21 1715 by Marion áVsquez (RETIRED) Peripheral IV Line - Single Lumen 06/29/16; cephalic vein (lateral side of arm), left; 18 gauge; 06/30/16; 1217 06/29/16 0000 by Starr Jesus RN 06/30/16 1217 by Indy Beltre, MICHAELA ETT Mask Ventilation: Adjunct (2); ETT Type: Cuffed, Oral; ETT Size: 7.5 mm; Mac Blade: 4; Notes: Asleep, Pre-O2, Cricoid Pressure, Stylette; Attempts: 1; Laryngoscopy Grade: 1; ETT Placement Verified By: Auscultation, Capnometry; Secured at Teeth: 23 cm; Inserted by: NGOZI; Removal Date: 06/29/16; Removal Time: 1035 06/29/16 0748 by Shena Mckeon CRNA 06/29/16 1035 by Shena Mckeon CRNA (RETIRED) Peripheral IV Line - Single Lumen 06/29/16; 0751; metacarpal vein (top of hand), right; [id number] catheter system; 16 gauge; PABLITO; 06/30/16; 1217 06/29/16 0751 by Shena Mckeon CRNA 06/30/16 1217 by Indy Beltre RN Arterial Line 06/29/16; 0751; radi al artery, left; 20 gauge; NGOZI; Sterile Prep, Sterile Gloves; no longer indicated, removed per policy, catheter intact; 06/29/16; 1210 06/29/16 0751 by Shena Mckeon CRNA 06/29/16 1210 by Starr Jesus RN Incision 06/29/16; 0810; hip; vertical; 11/29/21 (LDA cleanup utility RA#[id number]); 1715 (LDA cleanup utility RA#[id number]) 06/29/16 0810 by Shona Conde RN 11/29/21 1715 by Marion Vásquez documented [...] OR Notes * Anesthesia Postprocedure Evaluation - Melly Pickett MD - 06/29/2016 11:02 AM EDT [facility] Department of Anesthesiology Post-procedure Note Patient: Gunnar Morin Procedure Summary Date Anesthesia Start Anesthesia Stop Room / Location 06/29/16 0728 [facility] MAIN OR Procedure Diagnosis Surgeon Responsible Provider @TOTAL HIP REVISION ARTHROPLASTY, COMPLETE (WRVU 30.28) (Right Hip); MODIFIER S- ROM FEMORAL STEM DEPUY (N/A ) Status post total replacement of right hip (Right ELZBIETA polywear and osteolysis) Walter Rae MD Masaracchia, Melissa M, MD All Anesthesia Providers: Anesthesiologist: Melly Pickett MD MATERIAL CHECKER: Shena Mckeon CRNA Last (1hr) Vitals: BP 141/70 (06/29/16 1100) Temp 36.6 ??C (97.9 ??F) (06/29/16 1045) Pulse 64 (06/29/16 1100) Resp 18 (06/29/16 1100) SpO2 93 % (06/29/16 1100) Patient [facility] Level of Consciousness: Awake and Alert Pain Management: Satisfactory Analgesia PONV: None Cardiovascular Status: At Baseline Respiratory Status: At Baseline Postoperative Fluid Status: Intravascular EUvolemia Possible Anesthetic Complications: NONE apparent at time of evaluation Final Primary Anesthesia Type: General (The anesthetic type performed was the same as planned.) Comments: Good pain control, no nausea. Complaining of something in my right eye. Nothing obviousnoted on eye exam, no problems with vision. Fluoroscein dye drops placed with good relief, but no obvious abrasions noted on exam. Discussed that minor corneal abrasions, although irritating, typically resolve on their own. Discussed seeking follow up with an slot operations director if this does not improve and potential use of erythromycin drops. * Anesthesia Preprocedure Evaluation - Melly Pickett MD - 06/28/2016 7:09 PM EDT Pre-Anesthesia Evaluation for: Gunnar Morin a 71 y.o. male. Procedure(s): @TOTAL HIP REVISION ARTHROPLASTY, COMPLETE (WRVU 30.28) MODIFIER S-ROM FEMORAL STEM DEPUY Patient Active Problem List Diagnosis ??? 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 H/O total hip arthroplasty ??? Obesity, Class II, BMI 35-39.9 BMI 38 ??? 09/07/2015 S/P Left total knee arthroplasty (Dr. Rae) ??? DJD (degenerative joint disease) of knee ??? CAD (coronary artery disease) ??? Arthritis of knee ??? 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 Osteoarthritis of both knees ??? Bilateral knee pain No past medical history on file. Past Surgical History: Procedure Laterality Date ??? PRO TOTAL KNEE ARTHROPLASTY Left 09/07/2015 @TOTAL KNEE ARTHROPLASTY performed by Walter Rae MD at [facility] MAIN OR Social History Substance Use Topics [...] access: Peripheral line Anesthesia Plan: ASA 3 general, with a(n) intravenous induction Gunnar Morin is a 71 y/o M scheduled for RIGHT ELZBIETA. His PMH is significant for CAD (discovered [...] some sore throat. Plan for GETA, arterial line. Region - Other Informed Consent: Anesthetic plan and risks discussed with patient. Use of blood products discussed with patient who consented to blood products. Plan discussed with MATERIAL CHECKER. PAT Staff Note documented in this encounter Miscellaneous Notes * Addendum Note - Melly Pickett MD - 06/29/2016 12:14 PM EDT Addendum created 06/29/16 1214 by Melly Pickett MD Sign clinical note documented in this encounter Plan of Treatment Upcoming Encounters Date Type Department Care Team (Late st Contact Info) Description 10/31/2023 9:15 AM EDT Office Visit Dermatology at [facility] [address] [place] [address] Dawson Broderick MD [facility] [place] [address] 07/23/2024 9:30 AM EDT Office Visit Dermatology at [facility] [address] [place] [address] Dawson Broderick MD [facility] [place] [address] documented as of this encounter Visit Diagnoses Not on filedocumented in this encounter Administered Medications Inactive Administered Medications - up to 3 most recent administrations Medication Order MAR Action Action Date Dose Rate Site ceFAZolin (ANCEF) 3g in dextrose 5% 100 mL 3 g, Intravenous, ONCE, 1 dose, On Mon06/29/16 at 0630, Administer over 30 Minutes, Indication for (Active or Suspected): Prophylaxis Given 06/29/2016 7:43 AM EDT 3 g fentaNYL 50 mcg/mL multi-dose injection PRN, Starting on Mon06/29/16 at 0733, Until Mon06/29/16 at 1049, Pain, Anesthesia Intra-op, Routine Given 06/29/2016 7:33 AM EDT 100 mcg HYDROmorphone (DILAUDID) injection PRN, Starting on Mon06/29/16 at 0842, Until Mon06/29/16 at 1049, Pain, Anesthesia Intra-op, Routine Given 06/29/2016 10:27 AM EDT 0.2 mg Given 06/29/2016 8:42 AM EDT 0.2 mg lactated ringers infusion 1,000 mL 1,000 mL, at 100 mL/hr, Intravenous, CONTINUOUS, Starting on Mon06/29/16 at 0630, Until Mon06/29/16 at 1440, Day of Surgery (Day of Procedure) New Bag 06/29/2016 7:28 AM EDT New Bag 06/29/2016 6:37 AM EDT 1,000 mLs 100 mL/hr lactated ringers infusion CONTINUOUS PRN, Starting on Mon06/29/16 at 0743, Until Mon06/29/16 at 1049, Anesthesia Intra-op New Bag 06/29/2016 7:43 AM EDT midazolam (PF) (VERSED) 1 mg/mL multi-dose injection PRN, Starting on Mon06/29/16 at 0728, Until Mon06/29/16 at 1049, Sleep, Anesthesia Intra-op, Routine Given 06/29/2016 7:31 AM EDT 1 mg Given 06/29/2016 7:28 AM EDT 1 mg ondansetron (ZOFRAN) injection PRN, Starting on Mon06/29/16 at 1001, Until Mon06/29/16 at 1049, Nausea, Anesthesia Intra-op, Routine Given 06/29/2016 10:01 AM EDT 4 mg PHENYLephrine (FIOR-SYNEPHRINE) 20 mg in sodium chloride 250 mL (standard ADULT & Ismael greater than 20kg) infusion CONTINUOUS PRN, Starting on Mon06/29/16 at 0821, Until Mon06/29/16 at 1049, Anesthesia Intra-op, Routine Rate/Dose Change 06/29/2016 10:11 AM EDT 15 mcg/min 11.3 mL/hr Restarted 06/29/2016 9:56 AM EDT 30 mcg/min 22.5 mL/hr Rate/Dose Change 06/29/2016 9:04 AM EDT 30 mcg/min 22.5 mL /hr PHENYLephrine HCl in NS (PF) (FIOR-SYNEPHRINE) 0.8 mg/10 mL (80 mcg/mL) multi-dose injection Syrg PRN, Starting on Mon06/29/16 at 0733, Until Mon06/29/16 at 1049, Anesthesia Intra-op, Routine Given 06/29/2016 10:03 AM EDT 80 mcg Given 06/29/2016 9:43 AM EDT 40 mcg Given 06/29/2016 9:04 AM EDT 80 mcg propofol (DIPRIVAN) 10 mg/mL bolus injection (Anesthesia) PRN, Starting on Mon06/29/16 at 0733, Until Mon06/29/16 at 1049, Anesthesia Intra-op Given 06/29/2016 7:33 AM EDT 250 mg rocuronium (ZEMURON) multi-dose injection PRN, Starting on Mon06/29/16 at 0733, Until Mon06/29/16 at 1049, Anesthesia Intra-op, Routine Given 06/29/2016 8:24 AM EDT 30 mg Given 06/29/2016 7:33 AM EDT 50 mg documented in this encounter Care Teams Vacuum Forming Machine Operator Relationship Specialty Start Date End Date Phoenix Guzmán DO [address] [place] [address] [place] [address] PCP - General General Internal Medicine 02/20/15 documented as of this encounter
--- OUTSIDE RECORDS SUMMARY | 2023-10-23 09:08 | XMS_ITS | Encounter Summary ---
[place] [address] Care Team Providers Care School Community Relations Coordinator Name Role Phone Phoenix Guzmán DO Primary Care Provider [phone] Encounter Details Date Type Department Care Team (Latest Contact Info) Description 07/07/2016 Anti-Coag Telephone [place] [address] Carmen Pacheco RN Anticoagulation management encounter Social [...] Progress Notes * Carmen Pacheco RN - 07/07/2016 11:50 AM EDT Anticoagulation Therapy Nurse Visit Gunnar Morin 1945 Surgeon: PREM Indication: DVT Prophylaxis S/P Joint Replacement Duration of Treatment: 30 days ends: 30 days (last day = 07/29/16) - After your dose on 07/29, stop the Coumadin??. ?? Therapeutic Range: 2.0-3.0 INR: 1.7 Drawn by: [facility] PHONE: [phone] FAX: [phone] Patient presents with no signs of bleeding [...] EDT Office Visit Dermatology at [facility] [address] [place] [address] Dawson Broderick MD [facility] [place] [address] 07/23/2024 9:30 AM EDT Office Visit Dermatology at [facility] [address] [place] [address] Dawson Broderick MD [facility] [place] [address] documented as of this encounter Procedures Procedure Name Priority Date/Time Associated Diagnosis Comments EXTERNAL LAB HEMATOLOGY/COAG RESULTS PANEL Routine 07/07/2016 documented in this encounter Results * (ABNORMAL) Hematology / Coag External Results (07/07/2016) POC INR 1.7(A) 0.9 - 1.1 VISITING NURSE 07/07/2016 Historical Provider HEMATOLOGY ZORA SHEETS VISITING NURSE documented in this encounter Visit Diagnoses Diagnosis Anticoagulation management encounter Encounter for therapeutic drug monitoring documented in this encounter Care Teams School Community Relations Coordinator Relationship Specialty Start Date End Date Phoenix Guzmán DO [address] [place] [address] [place] [phone] PCP - General General Internal Medicine 02/20/15 documented as of this encounter
--- OUTSIDE RECORDS SUMMARY | 2023-10-23 09:08 | XMS_ITS | Encounter Summary ---
Author Organization [facility] [place] [address] Care Team Providers Care Diet Tech Name Role Phone Phoenix Guzmán DO Primary Care Provider [phone] Encounter Details Date Type Department Care Team (Latest Contact Info) Description 07/22/2016 Anti-Coag Telephone [place] [address] Cierra Pacheco, RN DEPT OF ORTHOPAEDICS Anticoagulation [...] Visit Dermatology at [facility] [address] [place] [address] Dawson Broderick MD [facility] DR [address] [address] 07/23/2024 9:30 AM EDT Office Visit Dermatology at [facility] [address] [place] [address] Dawson Broderick MD [facility] DR MY[place] [address] documented as of this encounter Procedures Procedure Name Priority Date/Time Associated Diagnosis Comments EXTERNAL LAB HEMATOLOGY/COAG RESULTS PANEL Routine 07/21/2016 documented in this encounter Results * (ABNORMAL) Hematology / Coag External Results (07/21/2016) POC INR 2.7(A) 0.9 - 1.1 EXTERNAL LAB 07/21/2016 Historical Provider HEMATOLOGY ORDERA BLES EXTERNAL LAB documented in this encounter Visit Diagnoses Diagnosis Anticoagulation management encounter Encounter for therapeutic drug monitoring documented in this encounter Care Teams Diet Tech Relationship Specialty Start Date End Date Phoenix Guzmán DO [address] [place] [address] [place] [address] PCP - General General Internal Medicine 02/20/15 documented as of this encounter
--- OUTSIDE RECORDS SUMMARY | 2023-10-23 09:08 | XMS_ITS | Encounter Summary ---
[place] [address] Care Team Providers Care Animal Rides Manager Name Role Phone Phoenix Guzmán DO Primary Care Provider [phone] Encounter Details Date Type Department Care Team (Latest Contact Info) Description 07/18/2016 Anti-Coag Telephone [place] [address] Ruben Sands RN Anticoagulation management encounter Social [...] Progress Notes * Ruben Sands, RN - 07/18/2016 4:14 PM EDT Anticoagulation Therapy Nurse Visit Gunnar Morin 1945 Surgeon: PREM Indication: DVT Prophylaxis S/P Joint Replacement Duration of Treatment: 30 days ends: 30 days (last day = 07/29/16) - After your dose on 07/29, stop the Coumadin??. ?? Therapeutic Range: 2.0-3.0 INR: 2.4 Drawn by: PCP-Dr. Goodrich - [phone],press Opt 1 Patient presents with no signs [...] Dermatology at [facility] [address] [place] [address] Dawson Broderick MD [facility] [place] [address] 07/23/2024 9:30 AM EDT Office Visit Dermatology at [facility] [address] [place] [address] Dawson Broderick MD [facility] [place] [address] documented as of this encounter Procedures Procedure Name Priority Date/Time Associated Diagnosis Comments EXTERNAL LAB HEMATOLOGY/COAG RESULTS PANEL Routine 07/18/2016 documented in this encounter Results * (ABNORMAL) Hematology / Coag External Results (07/18/2016) POC INR 2.4(A) 0.9 - 1.1 EXTERNAL LAB 07/18/2016 Historical Provider HEMATOLOGY ORDERA BLES EXTERNAL LAB documented in this encounter Visit Diagnoses Diagnosis Anticoagulation management encounter Encounter for therapeutic drug monitoring documented in this encounter Care Teams Animal Rides Manager Relationship Specialty Start Date End Date Phoenix Guzmán DO [address] [place] [address] [place] [phone] PCP - General General Internal Medicine 02/20/15 documented as of this encounter
--- OUTSIDE RECORDS SUMMARY | 2023-10-23 09:08 | XMS_ITS | Encounter Summary ---
[place] [address] Care Team Providers Care Civil Service Clerk Name Role Phone Phoenix Guzmán DO Primary Care Provider [phone] Encounter Details Date Type Department Care Team (Latest Contact Info) Description 07/25/2016 Anti-Coag [place] [address] Ruben Sands RN Anticoagulation management encounter Social [...] Progress Notes * Ruben Sands, RN - 07/25/2016 4:53 PM EDT Anticoagulation Therapy Nurse Visit Gunnar Morin 1945 Surgeon: PREM Indication: DVT Prophylaxis S/P Joint Replacement Duration of Treatment: 30 days ends: 30 days (last day = 07/29/16) - After your dose on 07/29, stop the Coumadin??. ?? Therapeutic Range: 2.0-3.0 INR: 2.4 per patient Drawn by: PCP-Dr. Goodrich - [phone],press Opt 1 Patient presents with no signs [...] week? No Comments: Dietary Changes: No Comments: * Anusha Agarwal RN - 07/25/2016 4:53 PM EDT 07/26/16 INR 2.4 on 07/25/16 confirmed by fax from [facility]. documented in this encounter Plan of Treatment Upcoming Encounters Date Type Department Care Team (Late st Contact Info) Description 10/31/2023 9:15 AM EDT Office Visit Dermatology at [facility] [address] [place] [address] Dawson Broderick MD [facility] [place] [address] 07/23/2024 9:30 AM EDT Office Visit Dermatology at [facility] [address] [place] [address] Dawson Broderick MD [facility] [place] [address] documented as of this encounter Procedures Procedure Name Priority Date/Time Associated Diagnosis Comments EXTERNAL LAB HEMATOLOGY/COAG RESULTS PANEL Routine 07/25/2016 documented in this encounter Results * Hematology / Coag External Results (07/25/2016) INR 2.4 EXTERNAL LAB 07/25/2016 Historical Provider HEMATOLOGY ORDERA BLES EXTERNAL LAB documented in this encounter Visit Diagnoses Diagnosis Anticoagulation management encounter Encounter for therapeutic drug monitoring documented in this encounter Care Teams Civil Service Clerk Relationship Specialty Start Date End Date Phoenix Guzmán DO [address] [place] [address] [place] [phone] PCP - General General Internal Medicine 02/20/15 documented as of this encounter
--- OUTSIDE RECORDS SUMMARY | 2023-10-23 09:08 | XMS_ITS | Encounter Summary ---
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 Hospital Encounter [place] [address] Walter Rae MD [facility] [place] [address] Status post total replacement of right hip [...] Coverage: Primary Insurance: MEDICARE AB Secondary Insurance: [facility] Prescription Coverage: THROUGH [facility] Preferred Pharmacy: Other: NONE ?? Primary Care Provider: Phoenix Guzmán DO [phone] ?? Patient/Caregiver Goals of Treatment: HE WANTS TO RESUME PLAYING PICKLE BALL, RIDE 4 [place], ETC. ?? Potential Needs for Transition of Care: Rehab/SNF: NO SELECTION Home Health: [facility] [address] [place] [id number] ?? 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 A letter describing our affiliations was reviewed with them and they were educated about their right to choose where referrals are placed. ?? Patient requests referral to [facility] [address] [place] [address] ? Expected date of discharge: ?? Referral routed to the [employer] for matching with agency/vendor and to provide [...] of care planning. ?? Lou Rao Pager: [phone] documented in this encounter Plan of Treatment Upcoming Encounters Date Type Department Care Team (Late st Contact Info) Description 10/31/2023 9:15 AM EDT Office Visit Dermatology at [facility] [address] [place] [address] Dawson Broderick MD [facility] DR MYKE [place] [address] 07/23/2024 9:30 AM EDT Office Visit Dermatology at [facility] [address] [place] [address] Dawson Broderick MD [facility] [place] [address] documented as of this encounter Visit Diagnoses [...] Surgery (Day of Procedure), Routine 5 (Due) ceFAZolin (ANCEF) 2g in dextrose 5% [...] Day of Surgery (Day of Procedure), Routine 1014 (Due) gabapentin (NEURONTIN) capsule 300 mg 300 mg, Oral, ONCE, 1 dose, On Mon05/04/16 at 1015, Administer on arrival in Same Day Program, Day of Surgery (Day of Procedure), Routine 5 (Due) tranexamic acid (CYKLOKAPRON) 1,871 mg in [...] (Due) documented in this encounter Care Teams Director Skills Relationship Specialty Start Date End Date Phoenix Guzmán DO [address] [place] [address] [place] [address] PCP - General General Internal Medicine 02/20/15 documented as of this encounter
--- OUTSIDE RECORDS SUMMARY | 2023-10-23 09:09 | XMS_ITS | Encounter Summary ---
[place] [address] Care Team Providers Care Stabilizer Operator Name Role Phone Phoenix Guzmán Primary Care Provider [phone] Encounter Details Date Type Department Care Team (Late st Contact Info) Description 08/28/2015 [place] [address] Jalen-Lou Caicedo Social History Tobacco Use Types Packs/Day Years Used Date Smoking Tobacco: Former Cigarettes Q uit: 01/11/2001 Smokeless Tobacco: Never Alcohol Use Standard Drinks/Week Comments Yes 0 (1 standard drink = 0.6 oz pure alcohol) 6 pack a week previously - stopped in April in prep for surgery Sex and Gender Information Value Date Recorded Sex Assigned at Not on file Gender Identity Not on file Sexual Orientation Not on file documented as of this encounter Miscellaneous Notes * Telephone Encounter - Lou Rao - 08/28/2015 2:47 PM EDT Pt was sent packet of information cc discharge planning post-op from a total joint replacement. Pt was provided with an introductory letter. Pt was provided with information about [facility]. Pt was provided with list of VNA and SNF in his area. Pt was encouraged to select the VNA of his choice as well as3 SNF he would be willing to go to and bring that list to the Joint Class. Pt was provided with a list of community resources by which additional DME can be obtained. Pt was encouraged to call with any questions. documented in this encounter Plan of Treatment Upcoming Encounters Date Type Department Care Team (Late st Contact Info) Description 10/31/2023 9:15 AM EDT Office Visit Dermatology at [facility] [address] [place] [address] [facility] [address] [place] [address] 07/23/2024 9:30 AM EDT Office Visit Dermatology at [facility] [address] [place] [address] [facility] [place] [address] documented as of this encounter Visit Diagnoses Not on filedocumented in this encounter Care Teams Stabilizer Operator Relationship Specialty Start Date End Date Phoenix Guzmán DO [address] [place] [address] [place] [address] PCP - General General Internal Medicine 02/20/15 documented as of this encounter
--- OUTSIDE RECORDS SUMMARY | 2023-10-23 09:09 | XMS_ITS | Encounter Summary ---
Author Organization [facility] [place] [address] Care Team Providers Care Nib Finisher Name Role Phone Phoenix Guzmán DO Primary Care Provider [phone] Encounter Details Date Type Department Care Team (Latest Contact Info) Description 10/08/2015 9:30 AM EDT - 10/08/2015 11:59 PM EDT Hospital Encounter XRay at [address] [place] [address] Walter Rae MD [facility] [place] [address] Primary osteoarthritis of both knees Discharge Disposition: Home Social History Tobacco Use Types Packs/Day Years Used Date Smoking Tobacco: Former Cigarettes Q uit: 01/11/2001 Smokeless Tobacco: Never Alcohol Use Standard Drinks/Week Comments Yes 3 (1 standard drink = 0.6 oz pur [...] See Admin Instructions. Reported on 07/28/2016 04/13/2015 oxyCODONE (ROXICODONE) 5 mg Tablet Take 1 tablet by mouth every 6 hours as needed for Pain. 30 tablet 09/17/2015 04/12/2016 acetaminophen (TYLENOL) 500 mg Tablet Take 2 tablets by mouth every 8 hours. Take every 8 hours for 10 days after surgery. Then may take if needed per package insert. Do not take more than 3,000 mg of acetaminophen in 24 hours. 09/08/2015 06/30/2016 polyethylene glycol (MIRALAX) 17 gram Powder in Packet Take 17 g by mouth 2 times daily. 09/08/2015 04/12/2016 senna-docusate (PERICOLACE) 8.6-50 mg Tablet Take 2 tablets by mouth 2 times daily. 60 tablet 09/08/2015 04/12/2016 carvedilol (COREG) 6.25 mg Tablet Take 6.25 [...] 9:15 AM EDT Office Visit Dermatology at [facility] [address] [place] [address] Dawson Broderick MD [facility] DR MYKE [place] [address] 07/23/2024 9:30 AM EDT Office Visit Dermatology at [facility] [address] [place] [address] Dawson Broderick MD [facility] DR MYKE [place] [address] documented as of this encounter Procedures Procedure Name Priority Date/Time Associated Diagnosis Comments XR KNEE STANDING ALIGNMENT AP LAT SKYLINE LEFT Routine 10/08/2015 10:07 AM EDT Primary osteoarthritis of both knees documented in this encounter Results * XR TKA First Po Visit Alignment AP Lat [place] Left (10/08/2015 10:07 AM EDT) Anatomical Region Laterality Modality Knee Left Digital Radiogra phy Impressions 10/08/2015 12:14 PM EDT 1. Bilateral medial deviation of the standing mechanical axis. 2. Total knee arthroplasty prosthesis on the left side and total hip arthroplasty prosthesis on the right side are in position. 3. Degenerative changes of the right knee joint, as described above. 4. Prepatellar soft tissue swelling on the left side. Moderately large joint effusion on the left side. Narrative 10/08/2015 12:14 PM EDT EXAMINATION: XR TKA FIRST PO VISIT ALIGNMENT AP LAT SKYLINE LEFT CLINICAL HISTORY: History of knee replacement TECHNIQUE: Separate images of the pelvis, knees and feet were acquired in the AP projection with the patient standing. These images were stitched together to form a composite image of the pelvis and legs allowing for evaluation of lower extremity alignment in the weight bearing position. Axial sunrise radiographs of the bilateral knees as well as bilateral AP standing and lateral radiograph of the left knee were also obtained. COMPARISON: None FINDINGS: There is bilateral medial deviation of the standing mechanical axis. The left total knee replacement prosthesis is in position. The right total hip replacement prosthesis is in position. Moderately severe degenerative narrowing of the medial tibiofemoral compartment and mild narrowing of the lateral tibiofemoral compartments. Large osteophyte formations in the medial aspect of the patellofemoral joint are causing moderately severe narrowing of this compartments on the right side. There is moderately large effusion in the suprapatellar recess on the left side. Soft tissue swelling overlying the distal femur on the left side. Procedure Note Cheri Servin MD - 10/08/2015 EXAMINATION: XR TKA FIRST PO VISIT ALIGNMENT AP LAT SKYLINE LEFT CLINICAL HISTORY: History of knee replacement TECHNIQUE: Separate images of the pelvis, knees and feet were acquired inthe AP projection with the patient standing. These images were stitched togetherto form a composite image of the pelvis and legs allowing for evaluation oflower extremity alignment in the weight bearing position. Axial sunriseradiographs of the bilateral knees as well as bilateral AP standing and lateralradiograph of the left knee were also obtained. COMPARISON: None FINDINGS: There is bilateral medial deviation of the standing mechanical axis. The left total knee replacement prosthesis is in position. The right totalhip replacement prosthesis is in position. Moderately severe degenerative narrowing of the medial tibiofemoralcompartment and mild narrowing of the lateral tibiofemoral compartments. Largeosteophyte formations in the medial aspect of the patellofemoral joint are causing moderately severe narrowing of this compartments on the right side. There is moderately large effusion in the suprapatellar recess on the leftside. Soft tissue swelling overlying the distal femur on the left side. IMPRESSION 1. Bilateral medial deviation of the standing mechanical axis. 2. Total knee arthroplasty prosthesis on the left side and total hip arthroplasty prosthesis on the right side are in position. 3. Degenerative changes of the right knee joint, as described above. 4. Prepatellar soft tissue swelling on the left side. Moderately largejoint effusion on the left side. Walter Rae MD IMG DX ORDERABLES documented in this encounter Visit Diagnoses Diagnosis Primary osteoarthritis of both knees Primary localized osteoarthrosis, lower leg documented in this encounter Care Teams Nib Finisher Relationship Specialty Start Date End Date Phoenix Guzmán DO [address] [place] [address] [place] [phone] PCP - General General Internal Medicine 02/20/15 documented as of this encounter
--- OUTSIDE RECORDS SUMMARY | 2023-10-23 09:09 | XMS_ITS | Encounter Summary ---
[place] [address] Care Team Providers Care Program Management Manager Name Role Phone Phoenix Guzmán DO Primary Care Provider [phone] Encounter Details Date Type Department Care Team (Late st Contact Info) Description 08/24/2015 Orders [place] [address] Walter Rae MD [facility] DR ORTHOP[place] [address] Primary osteoarthritis of both knees (Primary Dx) Social History Tobacco Use Types [...] AM EDT Office Visit Dermatology at [facility] [address] [place] [address] Dawson Broderick MD [facility] DR [address] STEPHENSON[place] [address] 07/23/2024 9:30 AM EDT Office Visit Dermatology at [facility] [address] [place] [address] Dawson Broderick MD [facility] DR [address] STEPH[place] [address] documented as of this encounter Visit Diagnoses Diagnosis Primary osteoarthritis of both knees- Primary Primary localized osteoarthrosis, lower leg documented in this encounter Care Teams Program Management Manager Relationship Specialty Start Date End Date Phoenix Guzmán DO [address] [place] [address] [place] [phone] PCP - General General Internal Medicine 02/20/15 documented as of this encounter
--- OUTSIDE RECORDS SUMMARY | 2023-10-23 09:09 | XMS_ITS | Encounter Summary ---
[place] [address] Care Team Providers Care Seed Sales Manager Name Role Phone Phoenix Guzmán Primary Care Provider [phone] Reason for Visit * Reason Comments Right Knee Pain Aftercare Of Tjr right ELZBIETA DOS [birth year] Encounter Details Date Type Department Care Team (Late st Contact Info) Description 04/12/2016 11:00 AM EST Office [place] [address] Brody Norton MD [facility] [place] [address] Status post total replacement of right hip; Arthritis of knee Social History Tobacco Use Types Packs/Day Years [...] Sign Reading Time Taken Comments Blood Pressure 113/76 04/12/2016 10:50 AM EST Pulse 89 04/12/2016 10:50 AM EST Temperature - - Respiratory Rate - - Oxygen Saturation - - Inhaled Oxygen Concentration - - Weight 124.7 kg (275 lb) 04/12/2016 10:50 AM EST Height 182.9 cm (6') 04/12/2016 10:50 AM EST Body Mass Index 37.3 04/12/2016 10:50 AM EST documented in this encounter Progress Notes * Roverto Alvarado PA - 04/12/2016 11:00 AM EST Arthroplasty/Orthopaedic History: 1. Right ELZBIETA. Dr. Quintanilla. 11/06/[address] Rae. 09/07/2015. HPI: Gunnar Morin is a very pleasant 71 y.o. year-old male and is now 7 months post and 20 year left total knee replacement and right total hip replacement. This visit is primarily for his hip, олег intends to pursue a right TKA with Dr. Rae. The patient has been doing well. Pain is not well c ontrolled. Medication(s) being used: acetaminophen.. No fevers, chills, nausea, vomiting, or symptoms of infection. Gunnar has been ambulating with no assistive device. Patient has noted great benefit status post left TKA, occasional pain, but not concerning. Patient denies any redness and swelling, no problems with his wound, and is happy with his left TKA. He intends to pursue a right TKA with Dr. Rae in the future. The patient explains 1 year progressive right groin pain, he explains pain with weightbearing, prolonged standing. The patient explains no instability, catching or locking about his hip joint. He explains it his symptoms feel similar to when he first developed arthritis in his hip. He swims no inciting or traumatic event one year ago when the symptoms came on, the pain is variable, occasionally sharp and intense such as with pivoting, or occasionally dull and achy with mild activity. The patient inquires about his x- ray and CT scan of his hip. The patient denies any history of heart attack or stroke, he did have to have a stent placed prior to left TKA, he denies history of type I or type 2 diabetes, he is a nonsmoker. He notes no LLD. ROS: Denies: fever, chills, night sweats, nausea, or vomiting BP 113/76 (BP Location (NBP): Left arm, Patient Position: Sitting, BP Cuff Sizes: Adult (25-34 cm))Pulse 89 Ht 182.9 cm (6') Wt (!) 124.7 kg (275 lb) BMI 37.3 kg/m2 Physical Exam: Well-appearing male in no acute distress. Alert and Oriented x 3 and answers all questions appropriately. The incision is well healed, with no signs of infection. Hip Exam: Right Leg length: Longer leg: equal Limb Length discrepancy: 0cm Motion: Flexion contracture: 0 Total degrees of Flexion:100 Total degrees of Abduction:30 Total degrees of Ext Rotation: 20 Total degrees of Internal Rotation: 10 Gait Abnormality: Antalgic Pulses Palpable: Right PT: Yes Right DP:Yes Motor/Sensory: Right Distal Motor: Normal Distal Sensory: Normal Hip Abductors 4 Trendelenburg test: negative Negative log roll and axial load test. FADIR reproduces groin and haunch pain. Right knee exam: Scar over the anteromedial aspect of the knee, well healed, medial incision about the joint line healed as well. No TTP about medial or lateral joint lines. Knee extension to 0 degrees, flexion to 120 degrees. No extensor lag. 5/5 MMT in knee extension. Knee is stable to varus and valgus stress. Negative Roddy's and Posterior drawer. PT/DP pulses 2+. Superficial peroneal, deep peroneal, sural, saphenous, and tibial nerves intact to touch. X-RAYS: Multiple radiographic views were obtained at my request and reviewed with the patient. 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 There is no fracture, displacement, or periprosthetic loosening to suggest other complication. Cup and stem appear well fixed, on the AP film, there does appear to be eccentric poly-wear, mainly superiorly. Questionnaire Responses: [facility] Surgical Postop Visit 04/12/2016 PROMIS-10 General Health Very Good PROMIS-10 Quality of Life Very Good PROMIS-10 Physical Health Very Good PROMIS-10 Mental Health Very Good PROMIS-10 Social Activity Very Good PROMIS-10 Everyday Activities Mostly PROMIS-10 Pain 6 PROMIS-10 Fatigue Mild PROMIS-10 Social Roles Very Good PROMIS-10 Anxious or Depressed Never PROMIS PHYSICAL HEALTH SCORE 47.7 PROMIS MENTAL HEALTH SCORE 56 HOOS JR Scores 76.78 Problems with surgical incision/wound after surgery No Gone to ER since knee surgery No Admitted to hospital since recent ortho surgery No Additional surgery on same body part No ELZBIETA Grade 8 Pain in other HIP Mild Back pain at this moment None Satisfaction with Treatment Satisfied Choose Same Treatment Again Definitely yes [facility]ope[facility] Response 04/12/2016 HOOS JR Scores 76.78 Spine [facility] Response 04/12/2016 HOOS JR Scores 76.78 ASSESSMENT/PLAN: Mr. Morin is a 71 y.o. 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 We discussed treatment for this,we discussed increased risk of dislocation rate with more poly-wear with a small head. We discussedtreatment for this, watchful waiting, we discussed surgical intervention with curetting out the ostial lysis, packing this with bone graft, checking intraoperatively to make sure the implants are well fixed, with a head and liner exchange. Patient is receptive to this. We discussed if the implant are not well fixed, conversion revision would have to take place. We discussed risks and benefits of this, we discussed recovery postoperatively. Patient is receptive to this. This patient was seen in conjuncture with Dr. Norton. We discussed the appropriate precautions surrounding dental prophylaxis; according to the AAOS Appropriate Use Criteria we do not recommend antibiotic use prior to dental procedures for Gunnar. Recommended antibiotic: N/A If Gunnar has any changes in health status we recommend he contact our office prior to dental procedures for updated recommendations We also discussed maintaining good foot care and giving prompt attention to any source of infectionthroughout the body including foot ulcers and urinary tract infections. All questions were answered. Signed: JACEK LLANOS 04/12/2016 documented in this encounter Plan of Treatment Upcoming Encounters Date Type Department Care Team (Late st Contact Info) Description 10/31/2023 9:15 AM EDT Office Visit Dermatology at [facility] [address] [place] [address] Dawson Broderick MD [facility] [place] [address] 07/23/2024 9:30 AM EDT Office Visit Dermatology at [facility] [address] [place] [address] Dawson Broderick MD [facility] [place] [address] documented as of this encounter Visit Diagnoses Diagnosis Status post total replacement of right hip Arthritis of knee Unspecified arthropathy, lower leg documented in this encounter Care Teams Seed Sales Manager Relationship Specialty Start Date End Date Phoenix Guzmán DO [address] [place] [address] [place] [address] PCP - General General Internal Medicine 02/20/15 documented as of this encounter
--- OUTSIDE RECORDS SUMMARY | 2023-10-23 09:09 | XMS_ITS | Encounter Summary ---
[facility] Organization [facility] [place] [address] Care Team Providers Care Paper Bag Machine Operator Name Role Phone DevantePhoenix orozco Cora MCDOWELL Primary Care Provider [phone] Reason for Visit * Auth/Cert Specialty Diagnoses / Procedures Referred By Omid shepherd Referred To Contact Diagnoses Arthritis of knee B/L Knee OA n/a Procedures PRO TOTAL KNEE ARTHROPLASTY @TOTAL KNEE ARTHROPLASTY MODIFIER: ATTUNE STABILIZED FIXED PLATFORM DEPUY Referral ID Status Reason Start Date Expiration Date Visits Re quested Visits Authorized [id number] 1 1 Encounter Details Date Type Department Care Team (Latest Contact Info) Description 09/07/2015 7:30 AM EDT - 09/08/2015 3:13 PM EDT Hospital Encounter 3 [place] [address] Walter Rae MD [facility] [place] [address] Primary osteoarthritis of both knees Discharge Disposition: Home with VNA Social History [...] Sign Reading Time Taken Comments Blood Pressure 117/71 09/08/2015 12:32 PM EDT Pulse 93 09/08/2015 12:32 PM EDT Temperature 36.8 ??C (98.2 ??F) 09/08/2015 12:32 PM E DT Respiratory Rate 18 09/08/2015 12:32 PM EDT Oxygen Saturation 95% 09/08/2015 12:32 PM EDT Inhaled Oxygen Concentration - - Weight 129.3 kg (285 lb) 09/07/2015 6:30 PM EDT Height 182.9 cm (6') 09/07/2015 6:30 PM EDT Body Mass Index 38.65 09/07/2015 6:30 PM EDT documented in this encounter Discharge Summaries * Julia Soriano P, COMMERCIAL DECORATOR - 09/08/2015 12:33 PM EDT Discharge Summary Patient Name: Gunnar Morin Patient Age: 70 y.o. Language: Khmer Race: White Ethnicity: Not nor Admit date: 09/07/2015 Discharge date and time: 09/08/2015 Attending Physician: Walter Rae MD Discharge Physician: Walter Rae MD Follow-up Recommendations for Providers: See discharge instructions for additional details. Future Appointments Date Time Provider Department Center 10/08/2015 9:30 AM [facility] DX ROOM 3 [facility] 10/08/2015 10:30 AM Walter Rae MD [facility] 10/08/2015 12:00 PM Bryant Miranda MD [facility] 12/03/2015 9:00 AM [facility] DX ROOM 6 [facility] 12/03/2015 10:00 AM Walter Rae MD [facility] [address] [place] [address] Inpatient Provider Contact Information: Walter Rae MD Orthopaedics: [phone]. After hours and weekends, call [facility] Mixed Crop Farmer, , and have the Orthopedic resident paged. Discharge Diagnoses (Hospital Problems) and Secondary Diagnoses (Chronic Problems): Active Hospital Problems Diagnosis ??? 09/07/2015 S/P Left total knee arthroplasty (Dr. Rae) ??? Arthritis of knee Resolved Hospital Problems Diagnosis Date Resolved No resolved problems to display. Active Non-Hospital Problems Diagnosis ??? Obesity, Class II, BMI 35-39.9 ??? DJD (degenerative joint disease) of knee ??? CAD (coronary artery disease) ??? S/P total hip arthroplasty ??? Osteoarthritis of both knees ??? Bilateral knee pain Operations/Major Procedures: 09/07/2015 Surgeon(s) and Role: * Walter Rae MD - Primary * Heidy Escalera MD Procedure(s): LEFT TOTAL KNEE ARTHROPLASTY MODIFIER, ATTUNE CURVED FIXED PLATFORM, DEPUY History of Presentation: Gunnar Morin is a 70 y.o. male with left knee osteoarthritis. After exhausting conservative measures, the patient elected to proceed with total knee arthroplasty. The risks and benefits of this procedure were reviewed in depth and patient received medical clearance prior to procedure. Hospital Course: The patient was admitted via Same Day Surgery for the above operation. DVT prophylaxis: Plavix 75 mg po daily and ASA 81 mg po daily as before surgery. Patient began rehab on POD#1 w/ weight bearing as tolerated of left leg remembering to use protection at all times for balance and protection. The p atient required straight cath X 1 immediately after surgery but then was voiding spontaneously, without difficulyt. Left knee Mepilex dressing to remain in place 7 days, was inspected POD#1 and foundto be clean, dry and intact. Patient did not have a bowel movement prior to discharge but was passing flatus and taking PO without difficulyt. By POD#1 the patient was medically stable and was cleared for safe discharge to home. Vital Signs at Discharge: Weight: Wt Readings from Last 1 Encounters: 09/07/15 (!) 129.3 kg (285 lb) Height: Ht Readings from Last 1 Encounters: 09/07/15 182.9 cm (6') HC: HC Readings from Last 1 Encounters: No data found for HC BMI: Body mass index is 38.65 kg/(m^2). Last value Range last 24 hrs Temperature Temp: 36.8 ??C (98.2 ??F) Temp: [36.2 ??C (97.2 ??F)-36.8 ??C (98.2 ??F)] Heart Rate Heart Rate: 93 Heart Rate: [66-93] Blood Pressure BP: 117/71 BP: (105-151)/(71-101) Respiratory Rate Resp: 18 Resp: [9-20] SpO2 SpO2: 95 % SpO2: [91 %-100 %] Art BP BP (Arterial Line): 125/66 BP (Arterial Line): (115-156)/(61-84) Functional and Cognitive Status: Ambulating with a walker, cognitively intact. Important Studies and Lab Data: Labs: Last 3 wbc, hgb, hct plt Recent Labs 09/08/15 0513 07/11/15 0435 07/10/15 1315 WBC 8.9 6.2 4.1 HGB 12.5* 14.2 13.3* HCT 38.6* 42.3 39.9* PLATELET 214 144* 233 Last 3 Lytes Recent Labs 09/08/15 0513 07/11/15 0435 07/10/15 1315 NA 138 141 137 K 4.8 4.2 4.4 CL 100 104 102 CO2 28 25 22 BUN 16 14 15 CREATININE 1.20 1.09 0.96 Studies: None new this admission. Transfusions: No Discharge Conditions/Prognosis: Stable, awake, and alert. Mobilizing with a walker, pain controlledon oral medications. Discharge to: Home with VNA. [...] 3,000 mg of acetaminophen in 24 hours. 1000 mg Refills: 0 gabapentin 300 mg Cap Commonly known as: NEURONTIN Take 1 capsule by mouth nightly. Take nightly before bed for sleep for 4 weeks after surgery. Start taking on: 09/09/2015 300 mg Quantity: 30 capsule Refills: 0 oxyCODONE 5 mg Tab Commonly known as: ROXICODONE Take 1-3 tablets by mouth every 4 hours as needed for Pain (mild pain (2-3) take 5 mg, moderate pain (4-6) take 10 mg, severe pain (7-10) take 15 mg). 5-15 mg Quantity: 70 tablet Refills: 0 polyethylene glycol 17 gram Pwpk Commonly known as: MIRALAX Take 17 g by mouth 2 times daily. 17 g Refills: 0 senna-docusate 8.6-50 mg Tab Commonly known as: PERICOLACE Take 2 tablets by mouth 2 times daily. 2 tablet Quantity: 60 tablet Refills: 0 Continued medications, unchanged Dose Details aspirin 81 mg Tbec Take 81 mg by mouth daily. 81 mg Refills: 0 carvedilol 6.25 mg Tab Commonly known as: COREG Refills: 0 clindamycin 150 mg Cap Commonly known as: CLEOCIN See Admin Instructions. TAKE 2 CAPSULES ONE HOUR BEFORE DENTAL PROCEDURES Refills: 0 clopidogrel 75 mg Tab Commonly known as: PLAVIX Take 1 tablet by mouth daily. 75 mg Quantity: 30 tablet Refills: 1 ezetimibe 10 mg Tab Commonly known as: ZETIA Take 1 tablet by mouth daily. 10 mg Quantity: 30 tablet Refills: 12 nitroGLYcerin 0.4 mg Subl Commonly known as: [...] under the operated knee for comfort. Anticoagulation: Plavix 75 mg daily and Aspirin 81 mg daily. Resume your usual dose of Plavix and Aspirin as you were taking before surgery. Diet: Resume your usual diet but increase [...] bowel movement. You can also take an eott-aah-zsxaznq medication, Miralax if needed to combat constipation. 2. If you need a renewal on your narcotic pain medication, you need to give the Orthopedic clinic enough time to process your request. This can take up to three days, so plan accordingly. 3. Continue acetaminophen (Tylenol) 1,000mg every 8 hours around the clock until September 16. This can be effective in controlling pain along with your other medications. After that you can take Tylenol as needed per package insert. Do not take more than 3,000mg of acetaminophen in a 24 hour period. 4. You have been discharged on a short acting narcotic, Oxycodone. You will be on this medication for a limited period of time only. Taper off this medication as your pain improves. 5. You are being discharged on gabapentin (Neurontin), a non-narcotic medication that will help with your pain at night and allow you to sleep better. You will take this at night for the next 4 [...] the incision. Wound (Mepilex): 1. Staple/suture removal 12-14 days after surgery (approximately September 20). 2. Do not lift the edge of the Mepilex dressing to inspect the incision, it will not re-adhere. Remove your operative dressing 7 days from your surgery (September 13). When it is removed you can leave the incision open to air or cover it with a light dressing. 3. If you have lots of drainage when you get home (and it is before September 13), remove this operative dressing and replace it with dry sterile gauze. Continue with daily dressing changes (and as needed) until the drainage stops, then remove the dressing and leave the incision open to air or lightlycovered. Misc: Remember that ICE and elevation are [...] x-rays prior to your follow-up appointment on 10/08/2015. Please come to Radiology, desk 3T, 1 hour BEFORE that appointment for those x-rays. Future Appointments Date Time Provider Department Center 10/08/2015 9:30 AM [facility] DX ROOM 3 Xray [facility] 10/08/2015 10:30 AM Walter Rae MD [facility] 10/08/2015 12:00 PM Bryant Miranda MD [facility] 12/03/2015 9:00 AM [facility] DX ROOM 6 [facility]ray [facility] 12/03/2015 10:00 AM Walter Rae MD [facility] If you have questions or concerns: Monday through Monday, 8 AM - 5 PM, please call Walter Christianson MD's office at . If it is after 5 PM, the weekend, or holidays, please call and ask to speak with theOrthopedic resident on-call. Future Appointments and Orders Future Appointments Provider Department Dept Phone 10/08/2015 9:30 AM [facility] DX ROOM 3 [facility] X[facility] [phone] Please go to [facility] ([place] Location). 10/08/2015 10:30 AM Walter Rae MD Orthopaedics [phone] 10/08/2015 12:00 PM Bryant Miranda MD Orthopaedics [phone] 12/03/2015 9:00 AM [facility] DX ROOM 6 [facility] X[facility] [phone] Please go to [facility] ([place] Location). 12/03/2015 10:00 AM Walter Rae MD Orthopaedics [phone] Future Orders Complete By Expires Referral to Home Health - at DISCHARGE [[id number] CPT(R)] As directed Process Instructions: Scheduling Instructions: Comments: DISCHARGE DOCUMENTATION FOR VNA SERVICES (INCLUDING THOSE PATIENTS WITH MEDICARE COVERAGE BEING DISCHARGED HOME WITH VNA SERVICES AND THOSE PATIENTS WITH MEDICARE COVERAGE WHO ARE BEING DISCHARGED HOME WITH HOSPICE SERVICES) Gunnar Morin [address] [place] [address] (home) Telephone Information: Automotive Customer Experience Advisor: himself In discussion with the attending physician, it is certified that this patient is under their care and that they, or a nurse practitioner, clinical nurse specialist or physician's day care assistant who is working directly with them, had a face to face encounter that meets the physician face to face encounter requirements with this patient on 09/08/2015 The encounter with the patient was in whole, or in part, for the following medical condition, whichis the primary reason for home health care services: [ L TKA ] In discussion with the primary medical team, it is certified that, based on their findings, the indicated services are medically necessary and appropriate for home health services. HOME HEALTH AGENCY: [facility] PHONE: [phone] FAX: [phone] Home care orders for Total KneeArthroplasty: 1.RN: Pt will be on Plavix 75 mg and ASA 81 mg daily as before surgery. Assess wound , med management, nutrition, and elimination, sleep, safety, coping, sleep, safety, VS, neuro-vasc checks Do not lift the edge of the mepilex dressing to observe the incision; this dressing needs to stay in place until 7 days after surgery. Suture or Staple removal in 10-14 days - PER MD ORDERS- September 20. 2. PT: Continue PT rehab for balance, endurance, joint mobility, ROM, Strength, TKA protocol FOR MEDICARE ONLY: (please delete this section if not Medicare) In discussion with the attending physician, it is certified that the clinical findings support thatthis patient is homebound ;i.e. absences from home require considerable and taxing effort due to:decreased strength and mobility L LE requiring use of assistive device and homebound status. Please note that any additional orders needs or changes will need to be obtained from this patient's PCP: PHOENIX GUZMÁN DO [address] [place] [address] All A agencies which cover the area of patient's residence have been reviewed, either verbally santy writing, and patient/family have chosen the indicated home health care agency for home services. Questions: Agency name and contact information: [facility] Patient location post discharge: home What services are requested: Registered Nurse Physical Therapy Start date: 09/09/2015 Responsible MD post discharge contact info: Dr Rae Primary Care Provider: PHOENIX GUZMÁN DO [phone] Discharge References/Attachments None documented in this encounter Discharge Instructions * Discharge Instructions* Julia Soriano, COMMERCIAL DECORATOR - 09/08/2015 12:32 PM EDT Activity: 1. Your weight-bearing status [...] under the operated knee for comfort. Anticoagulation: Plavix 75 mg daily and Aspirin 81 mg daily. Resume your usual dose of Plavix and Aspirin as you were taking before surgery. Diet: Resume your usual diet but increase [...] bowel movement. You can also take an dzay-ywh-huwvmme medication, Miralax if needed to combat constipation. 2. If you need a renewal on your narcotic pain medication, you need to give the Orthopedic clinic enough time to process your request. This can take up to three days, so plan accordingly. 3. Continue acetaminophen (Tylenol) 1,000mg every 8 hours around the clock until September 16. This can be effective in controlling pain along with your other medications. After that you can take Tylenol as needed per package insert. Do not take more than 3,000mg of acetaminophen in a 24 hour period. 4. You have been discharged on a short acting narcotic, Oxycodone. You will be on this medication for a limited period of time only. Taper off this medication as your pain improves. 5. You are being discharged on gabapentin (Neurontin), a non-narcotic medication that will help with your pain at night and allow you to sleep better. You will take this at night for the next 4 [...] the incision. Wound (Mepilex): 1. Staple/suture removal 12-14 days after surgery (approximately September 20). 2. Do not lift the edge of the Mepilex dressing to inspect the incision, it will not re-adhere. Remove your operative dressing 7 days from your surgery (September 13). When it is removed you can leave the incision open to air or cover it with a light dressing. 3. If you have lots of drainage when you get home (and it is before September 13), remove this operative dressing and replace it with dry sterile gauze. Continue with daily dressing changes (and as needed) until the drainage stops, then remove the dressing and leave the incision open to air or lightlycovered. Misc: Remember that ICE and elevation are [...] x-rays prior to your follow-up appointment on 10/08/2015. Please come to Radiology, desk 3T, 1 hour BEFORE that appointment for those x-rays. Future Appointments Date Time Provider Department Center 10/08/2015 9:30 AM [facility] DX ROOM 3 [facility] 10/08/2015 10:30 AM Walter Rae MD [facility] 10/08/2015 12:00 PM Bryant Miranda MD [facility] 12/03/2015 9:00 AM [facility] DX ROOM 6 [facility]ray [facility] 12/03/2015 10:00 AM Walter Rae MD [facility] If you have questions or concerns: Monday through Monday, 8 AM - 5 PM, please call Walter Christianson MD's office at . If it is after 5 PM, the weekend, or holidays, please call and ask to speak with [facility] resident on-call. documented in this encounter Medications [...] of acetaminophen in 24 hours. 09/08/2015 06/30/2016 gabapentin (NEURONTIN) 300 mg Capsule Take 1 capsule by mouth nightly. Take nightly before bed for sleep for 4 weeks after surgery. 30 capsule 09/09/2015 10/08/2015 oxyCODONE (ROXICODONE) 5 mg Tablet Take 1-3 tablets by mouth every 4 hours as needed for Pain (mild pain (2-3) take 5 mg, moderate pain (4-6) take 10 mg, severe pain (7-10) take 15 mg). 70 tablet 09/08/2015 09/17/2015 polyethylene glycol (MIRALAX) 17 gram Powder in [...] by mouth nightly. 30 tablet 08/19/2015 02/03/2017 clopidogrel (PLAVIX) 75 mg Tablet Take 1 tablet by mouth daily. 30 tablet 1 07/11/2015 10/08/2015 ezetimibe (ZETIA) 10 mg Tablet Take 1 tablet by mouth daily. 30 tablet 12 07/11/2015 10/08/2015 aspirin 81 mg EC tablet Take 81 mg by mouth daily. 09/22/2016 documented as of this encounter Progress Notes * Remigio Holley RN - 09/08/2015 12:49 PM EDT Patient discharged to home with VNA services. IV removed, site benign. My assessment remains unchanged from my previous assessment. Patient denies chest pain and shortness of breath. Discussed pain management with patient, pain tolerable. Patient medicated prior to discharge. Patient has all belongings. Patient received discharge summary and prescriptions. These were reviewed. All questions answered. Patient encouraged to call with questions or concerns. Patient discharged to home with family. Discharge Summary was faxed, RN called report to VNA. REMIGIO HOLLEY RN * David Mancia MD - 09/08/2015 12:35 PM EDT Regional Anesthesia Progress Note Date of Encounter: 09/08/2015 Responsible Attending: [address] Staff / Associate Provider: DAVID MANCIA MD ID: Patient is POD# 1 s/p knee arthroplasty for which the patient received a left adductor canal nerve block for post-operative pain control. Subjective: Today the patient has good pain control and at present states pain is 1 out of 10. Patient has been able to tolerate PO analgesics and an oral diet without nausea or vomiting. Patient is without any complaints this morning. Objective: Temp: [36.2 ??C (97.2 ??F)-36.8 ??C (98.2 ??F)] Heart Rate: [66-93] Resp: [9-20] BP: (105-151)/(71-101) SpO2: [91 %-100 %] Gen: Patient resting comfortably No bruising, erythema, swelling or discharge at insertion site. Sensory: Sensation is intact to cold over anterior thigh Motor: Patient is able to perform straight leg raise No evidence of local anesthetic toxicity Coags: No results found for: INR, PT, PTT Meds: Medication list reviewed Assessment: Peripheral nerve block for post-operative pain control, currently with good pain control. Block appears to be resolving appropriately. Plan: ?? Continue current management per primary service. ?? Patient was instructed to contact Regional Anesthesia Team ([id number]) for any unresolved sensory or motor deficits. ?? Thank you for the opportunity to have participated in the care of this patient. DAVID MANCIA MD Regional Team pager [phone] * Heidy Escalera MD - 09/08/2015 7:39 AM EDT ORTHOPAEDIC PROGRESS NOTE SURGERY/ISSUE: s/p L TKA Patient Active Problem List Diagnosis Code ??? S/P total hip arthroplasty Z96.649 ??? Osteoarthritis of both knees M17.0 ??? Bilateral knee pain M25.561, M25.562 ??? Arthritis of knee M19.90 ??? CAD (coronary artery disease) I25.10 ??? DJD (degenerative joint disease) of knee M17.9 ??? Obesity, Class II, BMI 35-39.9 E66.01 ??? 09/07/2015 S/P Left total knee arthroplasty (Dr. Rae) Z96.659 No past medical history on file. Interval History: Doing very well this AM. Pain controlled. Has not yet eating breakfast but is feeling hungry. Urinating without issue. Denies CP/SOB/N/V. Temp: [36.2 ??C (97.2 ??F)-36.8 ??C (98.2 ??F)] Heart Rate: [66-86] Resp: [9-21] BP: (105-151)/(72-101) SpO2: [91 %-100 %] I/O last 3 completed shifts: In: 2465 [P.O.:100; I.V.:2365] Out: 1375 [Urine:1175; Blood:200] Recent Labs 09/08/15 0513 WBC 8.9 HGB 12.5* HCT 38.6* PLATELET 214 NA 138 K 4.8 CL 100 CO2 28 BUN 16 CREATININE 1.20 PE: Gen: NAD CV: RRR by palpation Pulm: no increased WOB LLE Dressing C/D/I SITLT in DP/SP/T Firing EHL/TA/GS Foot WWP XRAYS: none new A/P: POD1 s/p L TKA. Doing well overall. Plan for pain control and mobilization today. ?? Active Issues: Mobilization, pain control ?? Activity: WBAT LLE ?? Antibiotics: perioperative 24hr ?? Toradol x24 hr ?? Antiicoagulation: Home plavix and Aspirin 81 mg QD ?? Mepilex dressing x 7 days ?? Smith: none ?? D/c IVF ?? D/c IV pain medications - oral pain medications ?? Dispo: home vs rehab per PT ?? Follow up: 4 weeks with xrays of pelvis/[address] Butch Escalera MD Orthopaedic Surgery Associated attestation - Walter Rae MD - 09/08/2015 9:38 AM EDT Patient seen and examined on rounds. Agree with resident note. In brief, doing very well postop day#1. Weight-bear as tolerated. Mepilex ??7 days. Plavix and aspirin for DVT prophylaxis. Follow-up in 4 weeks. Staple removal in 2 weeks. Walter Rae M.D. [place] Department of Orthopaedics * Efren Sharma MD - 09/07/2015 6:47 PM EDT Orthopaedic Surgery Post-Operative Progress Note Surgery: Left total knee arthroplasty Patient Active Problem List Diagnosis Code ??? S/P total hip arthroplasty Z96.649 ??? Osteoarthritis of both knees M17.0 ??? Bilateral knee pain M25.561, M25.562 ??? Arthritis of knee M19.90 ??? CAD (coronary artery disease) I25.10 ??? DJD (degenerative joint disease) of knee M17.9 Patient seen: On floor Subjective/Events: Alert, oriented and conversant. Following commands. Patient denies chest pain, shortness of breath, dizziness, headache, abdominal pain, nausea, vomiting. Pain well-controlled. Objective: Vitals: Temp: [36.2 ??C (97.2 ??F)-36.6 ??C (97.9 ??F)] Heart Rate: [66-86] Resp: [9-21] BP: (116-151)/(74-101) SpO2: [91 %-100 %] I/O this shift: In: 1211 [P.O.:100; I.V.:1111] Out: 600 [Urine:400; Blood:200] Exam: General: NAD, awake/alert, responds to questions CV: RRR Resp: Breathing comfortably, lungs CTAB Abd: Soft, nontender, nondistended LLE: In CryoCuff, underlying dressing c/d/i Sensory intact to light touch in sural/saph/SP/DP/T Motor intact to FHL/EHL/TA/gastroc/soleus, knee extension/flexion Brisk capillary refill distally, foot warm/well-perfused No results for input(s): WBC, HGB, HCT, PLATELET, NA, K, CL, CO2, BUN, CREATININE in the last 72 hours. Radiology: No postoperative MSK radiology A/P: 70 y.o. year old male POD#0 s/p left total knee arthroplasty. No acute events in the postoperative period. - Continue all care as ordered Future Appointments Date Time Provider Department Center 10/08/2015 9:30 AM [facility] DX ROOM 3 [facility]ray [facility] 10/08/2015 10:30 AM Walter Rae MD [facility] 10/08/2015 12:00 PM Bryant Miranda MD [facility] 12/03/2015 9:00 AM [facility] DX ROOM 6 [facility] 12/03/2015 10:00 AM Walter Rae MD [facility] EFREN SHARMA MD P: [phone] * Lisa Joy RN - 09/07/2015 5:21 PM EDT Break coverage, waiting for report to room 320 * Ismael Barber RN - 09/07/2015 2:30 PM EDT 1426: Pt arrived from OR to PACU. Denies pain or nausea. VSS. Alarms on and set appropriate per patient. * Lou Rao - 09/07/2015 8:52 AM EDT Office of Care Management (OCM) / Welder Tech(CM)/ Initial Assessment Discussed patient with Provider Team and in multidisciplinary discharge-planning rounds. Reviewed record and interviewed patient. Introduced/reviewed CM role and services accepted. REASON for HOSPITALIZATION: Left Total Knee Arthroplasty PMH No past medical history on file. PREVIOUS FUNCTIONAL STATUS: He ambulates independently. When sedentary, he is in no pain. When moving around it is between 6-8. CURRENT FUNCTIONAL STATUS: SOCIAL / FAMILY SUPPORTS: Primary caregiver is his , Sussy. Sussy has had both knees replaced. ADVANCE DIRECTIVES: He has an ADV DIR. HEALTH /PRESCRIPTION COVERAGE: He has Medicare [place] and [place]. He has no cc about his health insurance coverage. He has prescription coverage and no cc about affording his prescription co-pays. CURRENT HOME/COMMUNITY SERVICES/EQUIPMENT: DME: He has a 2 FWW, a walker with handle brakes and seat, crutches, canes, and a high rise toilet seat. [facility] [address] [place] [address] SNF: [facility] OP PT: SEBASTIEN Ortiz PT [address] [place] [address] WEB USER EXPERIENCE STRATEGIST REFERRAL: not needed at this time or Notified for: PRIMARY CARE PHYSICIAN: PHOENIX GUZMÁN, DO [address] [facility] [phone] POTENTIAL DISCHARGE NEEDS: None foreseen. ANTICIPATED BARRIERS TO DISCHARGE: None foreseen. TRANSPORTATION @ D/C: Sussy PLAN: CM will continue to monitor progress, follow for continuity of care and assist with dischargeplanning while hospitalized . documented in this encounter H&P Notes * Heidy Escalera MD - 09/07/2015 11:04 AM EDT 24 hour interval history and physical exam: Gunnar Morin condition unchanged since H&P originally performed Proceed with scheduled procedure. * Walter Rae MD - 09/07/2015 10:57 AM EDT The patient's history and physical exam have been reviewed and completed. There has been no interval change from that of the pre-operative history and physical exam done within the last 30 days. documented in this encounter Miscellaneous Notes * Care Management - Hernesto Myles, MICHAELA - 09/08/2015 12:10 PM EDT Chart reviewed and met with pt and . Pt is sitting in cardiac chair in NAD and eager to go home. He had L TKA yesterday by Dr Rae. Pt plans on d/c home today and [facility] for [facility]. He will be on ASA, SR in 10-14 days, and Home PT 3x wk. Pt has the DME he needs. * Initial Assessments - Remigio Yanes PT - 09/08/2015 11:32 AM EDT Physical Therapy Evaluation Patient profile: Gunnar Morin is a 70 y.o. R handed male admitted on 09/07/[address] Rae for elective L TKA. PT Consult Received 09/07/15 for initial evaluation 09/08/15. Patient with the following active problems: Patient Active Problem List Diagnosis Code ??? S/P total hip arthroplasty Z96.649 ??? Osteoarthritis of both knees M17.0 ??? Bilateral knee pain M25.561, M25.562 ??? Arthritis of knee M19.90 ??? CAD (coronary artery disease) I25.10 ??? DJD (degenerative joint disease) of knee M17.9 ??? Obesity, Class II, BMI 35-39.9 E66.01 ??? 09/07/2015 S/P Left total knee arthroplasty (Dr. Rae) Z96.659 PMH: No past medical history on file. Past Surgical History Procedure Laterality Date ??? Pro total knee arthroplasty Left 09/07/2015 @TOTAL KNEE ARTHROPLASTY performed by Walter Rae MD at [facility] MAIN OR Social History: Patient lives with his Stairs: 3 PHUC, flight to bathroom with rail Baseline Mobility: independent prior to admission, retired Equipment at home: FWW, tub shower with seat Precautions/Special Considerations: fall risk Activity Orders: WBAT L LE Diet: regular diet Code status: full Subjective: ???I feel great, let's get going. Objective: Pt seen for evaluation today. Pain: 5/10 with activity Vital Signs: Last value Heart Rate Heart Rate: 93 bpm Blood Pressure BP: 117/71 mmHg SpO2 SpO2: 95 % on RA Mental Status: alert, oriented to person, place, and time Communication: glasses Musculoskeletal: UE ROM: .WFL UE Strength:WFL UE Sensation:WFL LE ROM: Impaired, L knee 0-90 degrees s/p therex LE Strength: Impaired, at least 3-/5, strong quad set, +SLR, no lag with LAQ LE Sensation: WFL, intact to light touch Integumentary: dressing over L knee CDI Cardiopulmonary: stable Bed Mobility: Supine to Sit: independent from flat bed Sit to Supine: independent into flat bed Rolling: independent Repositioning in bed: independent Transfers: Sit to Stand: independent up to FWW (walker height adjusted) Stand to Sit: independent from FWW, good eccentric control and hand placement Bed to Chair: stand step, independent, FWW Gait: Distance: 450' Device used: rolling walker Level of assist: independent Gait pattern: initial verbal cues to progress from step to to step through gait pattern, mild antalgia, good heel to toe gait quality after instruction Stairs: ascended/descended flight of stairs with one railing and non-reciprocal pattern, initial verbal instruction in technique Balance: Sitting static: good Sitting dynamic: good Standing static: fair+ to good Standing dynamic: fair+ THEREX: pt issued hand out and instructed in/demonstrated x10 reps each of ankle pumps, quad sets, SAQ, SLR, LAQ and knee flexion in sitting, verbal cues for technique and holds to promote stretch versus isometric strength Education: patient has been educated on Bed mobility, Transfers, Assistive device/technique, Stairs, Exercise, Positioning, Safety , Precautions/protocol, Gait , Role of therapy and Discharge planning and verbalizes and demonstrates understanding. Patient status, treatment, and mobility recommendations discussed with nursing. Assessment: Gunnar Morin is a 70 y.o. R handed male admitted on 09/07/[address] Rae for elective L TKA. Patient presents to physical therapy with the following functional limitations and impairments; increased pain, decreased ROM, decreased strength. Pt made excellent progress with physical therapy meeting all acute care goals on evaluation including 0-90 degrees of L knee AROM. Pt participated in standardized assessment via Six Clicks with raw score of 20/20. Pt encouraged to ambulate 3 x/day with staff, getting into the bathroom for toileting and walking out in the lamar as able using FWW. Recommend discharge to home with outpatient physical therapy once medically cleared. Goals: all met on eval Plan: Monitor until formal discharge. Patient agrees with plan as stated above. Discharge Recommendations: Based on the current findings noted during this evaluation, patient could benefit from Outpatient Therapy Services when medically ready for hospital discharge. This recommendation is based on the patient's Current physical impairments, Prior functional status, Potential to return to prior level of function, Patient motivation, Reported home support, Potential for functional gains, Current level of endurance, Reported home environment and Anticipated trajectory of progress and may change based on patient progress during this hospitalization. Consult Recommendations: No other consults recommended at this time Equipment needs: Patient has all necessary equipment [facility] AM-PAC 6 Clicks Basic Mobility Inpatient Short Form (Without Stair Climbing) How much difficulty does the patient currently have... Unable without assistance (1) A Lot (2) A Little (3) None (4) 1. Turning over in bed (including adjusting bedclothes, sheets and blankets)? X 2. Sitting down on and standing up from a chair with arms (e.g., wheelchair, bedside commode, etc.)? X 3. Moving from lying on back to sitting on the side of the bed? X How much help from another person does the patient currently need... Total (1) A Lot (2) A Little (3) None (4) 4. Moving to and from a bed to a chair (including a wheelchair)? X 5. Need to walk in hospital room? X Raw Score: 20 Standardized Score: 60.57 CMS 0-100% Score: 0% CMS Modifier: CH Time IN / OUT: 9780-5217 Total time spent with patient: 22 minutes for evaluation, 10 minutes for therex Total timed interventions: 0 minutes Billing: one evaluation, one therex REMIGIO YANES PT, DPT 09/08/2015 Pager: [phone] Physical Therapy Inpatient Rehabilitation Department * Plan of Care - Nicolasa Sanabria RN - 09/08/2015 6:21 AM EDT Problem: Skin Integrity Impairment, Risk/Actual (Adult, Obstetrics) Goal: Identify Signs and Symptoms and Related Risk Factors Signs and symptoms and related risk factors are identified upon initiation of Human Response Clinical Practice Guideline (CPG) Outcome: Ongoing (Interventions Implemented as Appropriate) 09/07/15191209/08/15612 Skin Integrity Impairment, Risk/Actual Personal Related Risk Factors (Skin Integrity Impairment, Risk/Actual) stress -- Treatment Related Related Risk Factors (Skin Integrity Impairment, Risk/Actual) -- invasive catheters;medication;surgery Goal: Skin Integrity/Wound Healing Patient will demonstrate the desired outcomes. Outcome: Ongoing (Interventions Implemented as Appropriate) 09/08/15612 Skin Integrity Impairment, Risk/Actual (Adult, Obstetrics) Skin Integrity/Wound Healing making progress toward outcome Problem: General Plan of Care Goal: Plan of Care Review Outcome: Ongoing (Interventions Implemented as Appropriate) 09/08/15612 Plan of Care Review Plan of Care Outcome Status ongoing (interventions implemented as appropriate) Progress progress toward functional goals as expected Coping/Psychosocial Response Interventions Plan of Care Reviewed with patient OUTCOME EVALUATION NOTE: OUTCOME SUMMARY: Mr. Morin states that his pain is controlled to within tolerable levels by scheduled tylenol and toradol - he has not requested neha narcotic pain meds tonight. Taking PO well. No nausea. C,S&M intact LLE. PLAN MOVING FORWARD: mobilize, encourage fluids INDIVIDUALIZED FALL PREVENTION INTERVENTIONS: Patient-specific fall risk factors per assessment: [current deficits]: Gait and balance issues r/t surgery; unfamiliar environment; tripping hazards Assistance [level of assistance required for transfers and ambulation]: One assist with walker Supervision [direct monitoring required during toileting and ADLs]: Pt may be left unsupervised, and he uses the call caldwell appropriately. Surveillance [continuous indirect monitoring]: Masimo, hourly purposeful rounding Patient-specific fall prevention interventions for sensory deficits provided, if applicable: n/a CPG GOAL OUTCOME EVALUATION: Goal: Individualization and Mutuality Outcome: Ongoing (Interventions Implemented as Appropriate) 09/08/15612 Individualization Patient Specific Goals I need to get some sleep!. Patient Specific Interventions Care clustered to minimize awakenings. Goal: Fall Prevention-Safe Patient Handling Outcome: Ongoing (Interventions Implemented as Appropriate) 09/07/15 1800 09/08/15402 Vera Fall Risk History of Falling 0 -- Secondary Diagnosis 0 -- Ambulatory Aids 0 -- Intravenous Therapy/Heparin/Saline Lock 20 -- Gait/Transferring 20 -- Mental Status 0 -- Score 40 -- OTHER Vera Fall Risk Med -- Safety Interventions Safety Precautions/Fall Reduction -- fall reduction program maintained Musculoskeletal Interventions Positioning -- HOB up 30 degrees;independent Goal: Infection Control Outcome: Ongoing (Interventions Implemented as Appropriate) 09/07/15 1950 09/08/15402 Safety Interventions Isolation Precautions -- standard precautions maintained Infection Prevention bronchial hygiene promoted;environmental surveillance;hydration promoted;nutrition promoted;promote handwashing;rest/sleep promoted -- Goal: Discharge Needs Assessment Outcome: Ongoing (Interventions Implemented as Appropriate) 09/08/15612 Discharge Needs Assessment Concerns to be Addressed denies needs/concerns at this time Readmission Within the Last 30 Days no previous admission in last 30 days Discharge Facility/Level of Care Needs (pt expects to be discharged home) Current Health Anticipated Changes Related to Illness none Self-Care Equipment Currently Used at Home none * Plan of Care - Rosario Taylor RN - 09/07/2015 7:20 PM EDT Problem: Skin Integrity Impairment, Risk/Actual (Adult, Obstetrics) Goal: Identify Signs and Symptoms and Related Risk Factors Signs and symptoms and related risk factors are identified upon initiation of Human Response Clinical Practice Guideline (CPG) Outcome: Ongoing (Interventions Implemented as Appropriate) 09/07/151912 Skin Integrity Impairment, Risk/Actual Personal Related Risk Factors (Skin Integrity Impairment, Risk/Actual) stress OUTCOME EVALUATION NOTE: OUTCOME SUMMARY: Pt admitted to room 320. Pt orienated to room and call caldwell. Pt denied any SOB or CP. Vitals signs stable. Pt A+Ox4 and able to appropriately call for assistance. PLAN MOVING FORWARD: Pain management Follow MD orders OOB with PT post op day 1 Monitor urine output INDIVIDUALIZED FALL PREVENTION INTERVENTIONS: Patient-specific fall risk factors per assessment: [current deficits]: Recent surgery Assistance [level of assistance required for transfers and ambulation]: BR Supervision [direct monitoring required during toileting and ADLs]: RN/BUTTER GRADER Surveillance [continuous indirect monitoring]: Purposeful hourly rounding, masimo Patient-specific fall prevention interventions for sensory deficits provided, if applicable: No CPG GOAL OUTCOME EVALUATION: Goal: Skin Integrity/Wound Healing Patient will demonstrate the desired outcomes. Outcome: Ongoing (Interventions Implemented as Appropriate) 09/07/151912 Skin Integrity Impairment, Risk/Actual (Adult, Obstetrics) Skin Integrity/Wound Healing making progress toward outcome * Brief Op Note - Walter Rae MD - 09/07/2015 2:22 PM EDT Brief Operative Note Patient Name: Gunnar Morin : [id number] MR#: [id number] Date of surgery: September 07, 2015 Preoperative diagnosis: Left knee osteoarthritis Postoperative diagnosis: Left knee osteoarthritis Procedure: Left total knee arthroplasty [15089] Anesthesia: General Surgeon: Walter Rae MD MS Loader Helper: Heidy Escalera MD Estimated blood loss: 200 cc Fluids: 1000 cc Urine output: Due to void Drains: None Tourniquet time: 82 minutes Complications: None Implants: All implants from [employer] Att[employer] knee system #1: Size 9 Femoral CR component #2: Size 7 tibial fixed component #3: Size 41 oval patella component #4: Size 9 x 5 mm polyethylene insert #5: 2 batches of antibiotic cement. Findings: Tricompartmental osteoarthritis. Coronally and sagittally well balanced. Range of motion full extension 220??. Excellent patellar tracking. Infection Bundle used? N/A Attestation: Case Date: 09/07/2015 I was present and I participated during the entire procedure (does not need to include opening and closing). (Please see the Surgical Encounter Summary for any Implant and Specimen details pertinent to this patient.) * Op Note - Walter Rae MD - 09/07/2015 2:21 PM EDT [facility] Operative Note Patient Name: Gunnar Morin : [id number] MR#: [id number] Date of surgery: September 07, 2015 Preoperative diagnosis: Left knee osteoarthritis Postoperative diagnosis: Left knee osteoarthritis Procedure: Left total knee arthroplasty [92523] Anesthesia: General Surgeon: Walter Rae MD MS Loader Helper: Heidy Escalera MD Estimated blood loss: 200 cc Fluids: 1000 cc Urine output: Due to void Drains: None Tourniquet time: 82 minutes Complications: None Implants: All implants from [employer] Att[employer] knee system #1: Size 9 Femoral CR component #2: Size 7 tibial fixed component #3: Size 41 oval patella component #4: Size 9 x 5 mm polyethylene insert #5: 2 batches of antibiotic cement. Findings: Tricompartmental osteoarthritis. Coronally and sagittally well balanced. Range of motion full extension 220??. Excellent patellar tracking. Indications for procedure: Patient is a 70-year-old female with left knee osteoarthritis. After exhausting conservative measures, the patient elected to proceed with total knee arthroplasty. The risks and benefits of this procedure were reviewed in depth and patient received medical clearance priorto procedure. Description of events: The patient was seen in the same day surgery area where informed consent was confirmed and the appropriate left lower extremity was marked with my initials. This was confirmed by the patient as the correct side. The patient was brought back to the operating room and placed on the operating room table in the supine position. A timeout was performed per policy identifying the correct side, patient identity, and procedure. Preoperative antibiotics were given prior to incision. A general anesthetic was provided by the anesthesia staff. The patient had nonsterile tourniquets placed about the upper thigh. The knee was prepped and draped in usual sterile fashion using ChloraPrep. An incision was based over the patella. [...] cutting jig was placed to make an 8 mm distal cut with 6 degree valgus cut. Distal femoral cutting jig was pinned to place the distal femoral cut was made without complication. Attention was then turned to preparing our tibia. External tibial cutting jig was placed and the appropriate slope, position on tibia. 2 mm were taken off the more affected [...] then the tourniquet was let down at 82 minutes. Hemostasis was obtained with electrocautery. The knee was copiously irrigated with normal saline. Remaining cement was removed. A strata fix barbed suture was then used to close the arthrotomy. Afterclosure of the arthrotomy, the knee was flexed up and found to be watertight and tracking well. Knee flexion with arthrotomy closed was found to be 120??. The knee was once again copiously irrigated [...] extremity without precaution. Patient will use ASA and Plavix for DVTprophylaxis for 6 weeks then will continue Plavix per Cardiology. Dressing will remain in place for7 days. Staple removal in 14 days. Patient will likely be discharged to home with VNA services or rehabilitation stay. Follow-up will be in 4 weeks for wound check and xrays, Staple removal at 14 days. Infection Bundle used? N/A Attestation: Case Date: 09/07/2015 I was present and I participated during the entire procedure (does not need to include opening and closing). Walter Rae MD 09/07/2015 documented in this encounter Plan of Treatment Upcoming Encounters Date Type Department Care Team (Late st Contact Info) Description 10/31/2023 9:15 AM EDT Office Visit Dermatology at [facility] [address] [place] [address] Efren Broderick MD [facility] [place] [address] 07/23/2024 9:30 AM EDT Office Visit Dermatology at [facility] [address] [place] [address] Efren Broderick MD [facility] [place] [address] documented as of this encounter Procedures Procedure Name Priority Date/Time Associated Diagnosis Comments IMPLANTABLE DEVICES SCAN 09/09/2015 12:00 AM EDT ECG SCAN 09/09/2015 12:00 AM EDT HEMOGRAM Routine 09/08/2015 5:13 AM EDT DIFFERENTIAL, AUTOMATED Routine 09/08/2015 5:13 AM EDT CBC (WITH DIFF) Routine 09/08/2015 5:13 AM EDT BASIC METABOLIC PANEL (NON-FASTING) Routine 09/08/2015 5:13 AM EDT MODIFIER, ATTUNE CURVED FIXED PLATFORM, DEPUY Yes 09/07/2015 11:38 AM EDT Primary osteoarthritis of both knees TOTAL KNEE ARTHROPLASTY (WRVU 19.6) Yes 09/07/2015 11:38 AM EDT Primary osteoarthritis of both knees TYPE AND SCREEN, SDP (FUTURE SURGERY, [facility] SAME DAY PROGRAM ONLY) Routine 09/07/2015 7:52 AM EDT Primary osteoarthritis of both knees ABO/RH TYPING Routine 09/07/2015 7:52 AM EDT Primary osteoarthritis of both knees ANTIBODY SCREEN Routine 09/07/2015 7:52 AM EDT Primary osteoarthritis of both knees documented in this encounter Results * SCAN DOC: IMPLANTABLE DEVICES (09/09/2015 12:00 AM EDT) Scanning Provider MEDIA MGR SCAN EXT O RDR/RSLT * SCAN DOC: ECG (09/09/2015 12:00 AM EDT) Scanning Provider MEDIA MGR SCAN EXT O RDR/RSLT * (ABNORMAL) Differential, Automated (09/08/2015 5:13 AM EDT) Neutrophils % 84.6 % [facility] Neutr Abs (ANC) 7.53(H) 1.50 - 6.30 x10(3)/ L [facility] Lymphocytes % 7.5 % [facility] Lymphocytes Abs 0.7(L) 1.0 - 3.6 x10(3)/[facility] Monocytes % 7.8 % [facility] Monocyte Abs 0.7 0.2 - 1.0 x10(3)/[facility] Eosinophils % 0.0 % [facility] Eosinophils Abs 0.0 0.0 - 0.5 x10(3)/[facility] Basophils % 0.0 % [facility] Basophils Abs 0.0 0.0 - 0.2 x10(3)/[facility] Immature Gran % 0.10 % [facility] Comment: Immature granulocytes(IG's)percentage and absolute count will include metamyelocytes, myelocytes, and promyelocytes. Blood smears from CBCs yielding IG's will be scanned manually for concordance. If this scan disagrees with the automated IG or if promyelocytes are noted, a manual differential will be performed. Geovanna Gran Abs 0.01 0.00 - 0.05 x10(3)/mc L [facility] Blood specimen (specimen) 09/08/2015 5:13 AM EDT 09/08/2015 5:26 AM EDT Narrative Resulting Agency Comment Spec In Lab Walter Rae MD HEMATOLOGY ORDERABLE S [facility] [place] [address] * (ABNORMAL) Hemogram (09/08/2015 5:13 AM EDT) WBC 8.9 4.0 - 10.0 x10(3)/[facility] RBC 3.98(L) 4.63 - 6.08 x10(6)/[facility] Hemoglobin 12.5(L) 13.7 - 17.5 gm/dL [facility] Hematocrit 38.6(L) 40.0 - 51.0 % [facility] MCV 97.0(H) 79.0 - 92.0 fL [facility] MCH 31.4 25.6 - 32.2 pg [facility] MCHC 32.4 32.0 - 36.5 gm/dL [facility] Platelets 214 145 - 370 x10(3)/[facility] RDWSD 46.7(H) 35.0 - 46.0 fL [facility] RDWCV 13.2 10.9 - 14.4 % [facility] MPV 10.3 9.0 - 12.0 fL [facility] Blood specimen (specimen) 09/08/2015 5:13 AM EDT 09/08/2015 5:26 AM EDT Narrative Resulting Agency Comment Spec In Lab Walter Rae MD HEMATOLOGY ORDERABLE S [facility] [place] [address] * (ABNORMAL) Basic Metabolic Panel (non-fasting) (09/08/2015 5:13 AM EDT) Glucose Lvl 150 65 - 199 mg/dL [facility] Comment:Diabetes: >=200 mg/d L plus symptoms BUN 16 10 - 20 mg/dL [facility] Creatinine 1.20 0.80 - 1.50 mg/dL [facility] Comment: Please note that the pediatric reference intervals supplied above were not validated at [facility]. Results from pediatric patients should be interpreted in conjunction to the patient's age, height and muscle mass. Sodium 138 135 - 145 mmol/L [facility] Potassium 4.8 3.5 - 5.0 mmol/L [facility] Comment: Please note: ??Patients with WBC >100,000 may have falsely elevated Potassium levels. ??For accurate Potassium quantification in these patients send serum separator tube (gold top) for subsequent determinations. ??Contact the Clinical Chemistry Laboratory if there are any questions. Chloride 100 98 - 107 mmol/L [facility] CO2 28 22 - 31 mmol/L [facility] Anion Gap 10 5 - 15 mmol/L [facility] Calcium 8.2(L) 8.5 - 10.5 mg/dL [facility] Estimated GFR 60 >=60 [facility] Comment: This estimated GFR [...] the following links into your internet browser. [email or web address] Blood specimen (specimen) 09/08/2015 5:13 AM EDT 09/08/2015 5:26 AM EDT Narrative Resulting Agency Comment Spec In Lab Walter Rae MD CHEMISTRY ORDERABLES Performing Organization Address City/[facility] [address]/ZIP Co de Phone Number [facility] [place] [address] * Antibody screen (09/07/2015 7:52 AM EDT) Ab Screen Interp Negative [facility] Expires at 2359 on: 09/10/2015 [facility] Blood specimen (specimen) 09/07/2015 7:52 AM EDT 09/07/2015 7:58 AM EDT Narrative Resulting Agency Comment Spec In Lab Walter Rae MD BLOOD BANK LAB ORDER ADRIA Performing Organization Address City/[facility] [address]/ZIP Co de Phone Number [facility] [place] [address] * ABO/Rh Typing (09/07/2015 7:52 AM EDT) ABORH Type A Neg [facility] Blood specimen (specimen) 09/07/2015 7:52 AM EDT 09/07/2015 7:58 AM EDT Narrative Resulting Agency Comment Spec In Lab Walter Rae MD BLOOD BANK LAB ORDER ADRIA Performing Organization Address City/[facility] [address]/ZIP Co de Phone Number [facility] [place] [address] documented in this encounter Visit Diagnoses Diagnosis 09/07/2015 S/P Left total knee arthroplasty (Dr. Rae)- Primary Knee joint replacement by other means Primary osteoarthritis of both knees Primary localized osteoarthrosis, lower leg Arthritis of knee Unspecified arthropathy, lower leg documented in this encounter Admitting Diagnoses Diagnosis Arthritis of knee Unspecified arthropathy, lower leg documented in this encounter Administered Medications Inactive Administered Medications - up to 3 most recent administrations Medication Order MAR Action Action Date Dose Rate Site acetaminophen (TYLENOL) tablet 1,000 mg 1,000 mg, Oral, ONCE, 1 dose, On 09/07/15 at 1015, Administer on arrival in Same Day Program, Day of Surgery (Day of Procedure), Routine Given 09/07/2015 10:15 AM EDT 1,000 mg acetaminophen (TYLENOL) tablet 1,000 mg 1,000 mg, Oral, EVERY 8 HOURS SCHEDULED, First dose on Mon09/07/15 at 1545, Until Discontinued, Maximum dose of acetaminophen is 4000 mg from all sources in 24 hours., Recovery (Recovery-Hospital Unit), Routine Given 09/08/2015 1:20 PM EDT 1,000 mg Given 09/08/2015 5:52 AM EDT 1,000 mg Given 09/07/2015 9:32 PM EDT 1,000 mg aspirin EC tablet 81 mg 81 mg, Oral, DAILY, First dose on Mon09/08/15 at 0900, Until Discontinued, Recovery (Recovery-Hospital Unit), Routine Given 09/08/2015 8:47 AM EDT 81 mg atorvastatin (LIPITOR) tablet 10 mg 10 mg, Oral, EVERY EVENING, First dose on Mon09/07/15 at 2000, Until Discontinued, Interchange.for pravastatin., Routine Given 09/07/2015 9:33 PM EDT 10 mg ceFAZolin (ANCEF) 1g in dextrose 5% 50mL 1,000 mg (1 g), Intravenous, EVERY 8 HOURS, 3 doses, First dose on Mon09/07/15 at 2000, Last dose on Mon09/08/15 at 1200, Administer over 30 Minutes, Adjust to 4 hours from intraoperative dose. * Beta-lactam based antibiotics (eg. Ampicillin, Cefazolin, Aztreonam) should be administered within 4 hours of the preceding intraoperative dose. * Vancomycin, Flouroquinolones, Clindamycin, Gentamicin, and Metronidazole should be administered within 8 hours of the preceding intraoperative dose., Recovery (Recovery-Hospital Unit), Indication for (Active or Suspected): Prophylaxis Given 09/08/2015 12:17 PM EDT 1,000 mg 100 mL /hr Given 09/08/2015 4:17 AM EDT 1,000 mg 100 mL/hr Given 09/07/2015 8:55 PM EDT 1,000 mg 100 mL/hr clopidogrel (PLAVIX) tablet 75 mg 75 mg, Oral, DAILY, First dose on Mon09/08/15 at 0900, Until Discontinued, Recovery (Recovery-Hospital Unit), Routine Given 09/08/2015 8:48 AM EDT 75 mg dexamethasone (DECADRON) tablet 4 mg 4 mg, Oral, DAILY, 2 doses, First dose on Mon09/07/15 at 1630, Last dose on Mon09/08/15 at 0900, Recovery (Recovery-Hospital Unit), STAT Given 09/08/2015 8:48 AM EDT 4 mg Given 09/07/2015 4:04 PM EDT 4 mg ezetimibe (ZETIA) tablet 10 mg 10 mg, Oral, DAILY, First dose on Mon09/08/15 at 0900, Until Discontinued, Recovery (Recovery-Hospital Unit), Routine Given 09/08/2015 8:48 AM EDT 10 mg gabapentin (NEURONTIN) capsule 300 mg 300 mg, Oral, ONCE, 1 dose, On Mon09/07/15 at 1015, Administer on arrival in Same Day Program, Day of Surgery (Day of Procedure), Routine Given 09/07/2015 10:15 AM EDT 300 mg gabapentin (NEURONTIN) capsule 300 mg 300 mg, Oral, NIGHTLY, First dose on Mon09/09/15 at 2100, Until Discontinued, Recovery (Recovery-Hospital Unit), Routine gabapentin (NEURONTIN) capsule 600 mg 600 mg, Oral, NIGHTLY, 2 doses, First dose on Mon09/07/15 at 2100, Last dose on Mon09/08/15 at 2100, Recovery (Recovery-Hospital Unit), Routine Given 09/07/2015 9:33 PM EDT 600 mg ketorolac (TORADOL) injection 15 mg 15 mg, Intravenous, EVERY 6 HOURS SCHEDULED, 4 doses, First dose on Mon09/07/15 at 1545, Last dose on Mon09/08/15 at 1200, Recovery (Recovery-Hospital Unit), Routine Given 09/08/2015 5:53 AM EDT 15 mg Given 09/07/2015 11:42 PM EDT 15 mg Given 09/07/2015 3:31 PM EDT 15 mg lactated ringers infusion 1,000 mL 1,000 mL, at 100 mL/hr, Intravenous, CONTINUOUS, Starting on Mon09/07/15 at 1015, Until Mon09/07/15 at 1713, Day of Surgery (Day of Procedure) New Bag 09/07/2015 2:08 PM EDT New Bag 09/07/2015 11:38 AM EDT New Bag 09/07/2015 10:15 AM EDT 1,000 mLs 100 mL/hr lactated ringers infusion 1,000 mL 1,000 mL, at 100 mL/hr, Intravenous, CONTINUOUS, Starting on Mon09/07/15 at 1630, Until Mon09/08/15 at 1713, Recovery (Recovery-Hospital Unit) New Bag 09/08/2015 2:49 AM EDT 1,000 mLs 100 mL/hr New Bag 09/07/2015 4:17 PM EDT 1,000 mLs 100 mL/hr midazolam (PF) (VERSED) 1 mg/mL injection 1 mg 1 mg, Intravenous, EVERY 5 MIN PRN, Starting on Mon09/07/15 at 0957, Until Mon09/07/15 at 1713, Sleep, or prior to injection of local anesthetic, Hold for delirium/agitation. (Maximum dose 5 mg)., Day of Surgery (Day of Procedure), Routine Given 09/07/2015 11:38 AM EDT 2 mg Given 09/07/2015 11:05 AM EDT 1 mg Given 09/07/2015 11:00 AM EDT 1 mg multivitamin Vvhj-Zf-TQ-Min (THERAPEUTIC-M) 27-0.4 mg tablet 1 tablet 1 tablet, Oral, DAILY, First dose on Mon09/07/15 at 2000, Until Discontinued, Recovery (Recovery-Hospital Unit) Given 09/08/2015 8:47 AM EDT 1 tablet ondansetron (ZOFRAN) injection 4 mg 4 mg, Intravenous, EVERY 30 MIN PRN, Starting on Mon09/07/15 at 1403, Until Mon09/07/15 at 1713, Nausea, May repeat 4 mg once in 30 minutes. If multiple antiemetics ordered, use ondansetron first and if ineffective use prochlorperazine second and if ineffective use promethazine, PACU Recovery Given 09/07/2015 3:00 PM EDT 4 mg ondansetron (ZOFRAN) injection 4 mg 4 mg, Intravenous, EVERY 8 HOURS PRN, Starting on Mon09/07/15 at 1821, Until Mon09/08/15 at 1713, Nausea, May repeat times one in 30 minutes if ineffective. If multiple antiemetics are ordered, use ondanstron first, Recovery (Recovery-Hospital Unit) ondansetron (ZOFRAN) tablet 4 mg 4 mg, Oral, EVERY 8 HOURS PRN, Starting on Mon09/07/15 at 1821, Until Mon09/08/15 at 1713, Nausea, Vomiting, If multiple antiemetics are ordered, use ondansetron first. PO Preferred. If patient unable to take PO, may give IV if ordered. May repeat times one in 45 minutes if ineffective., Recovery (Recovery-Hospital Unit), Routine pantoprazole (PROTONIX) tablet 20 mg 20 mg, Oral, DAILY, First dose on Mon09/07/15 at 2000, Until Discontinued, DO NOT CRUSH OR OPEN, Recovery (Recovery-Hospital Unit) Given 09/08/2015 8:47 AM EDT 20 mg Given 09/07/2015 9:34 PM EDT 20 mg polyethylene glycol (MIRALAX) packet 17 g 17 g, Oral, 2 TIMES DAILY, First dose on Mon09/07/15 at 2100, Until Discontinued, Recovery (Recovery-Hospital Unit), Routine Given 09/08/2015 8:47 AM EDT 17 g Given 09/07/2015 9:34 PM EDT 17 g senna-docusate (PERICOLACE) 8.6-50 mg per tablet 2 tablet 2 tablet, Oral, 2 TIMES DAILY, First dose on Mon09/07/15 at 2100, Until Discontinued, Recovery (Recovery-Hospital Unit), Routine Given 09/08/2015 8:49 A M EDT 2 tablets Given 09/07/2015 9:33 PM EDT 2 tablets documented in this encounter Active and Recently Administered Medications Times are shown in EDT. Scheduled Medication Order 09/06/2015 09/07/2015 09/08/2015 acetaminophen (TYLENOL) tablet 1,000 mg (COMPLETED) 1,000 mg, Oral, ONCE, 1 dose, On Mon09/07/15 at 1015, Administer on arrival in Same Day Program, Day of Surgery (Day of Procedure), Routine 1015 (Given - Provider: Tung Macias RN) acetaminophen (TYLENOL) tablet 1,000 mg 1,000 mg, Oral, EVERY 8 HOURS SCHEDULED, First dose on Mon09/07/15 at 1545, Until Discontinued, Maximum dose of acetaminophen is 4000 mg from all sources in 24 hours., Recovery (Recovery-Hospital Unit), Routine 1545 (Due)2132 (Given - Provider: Gema Siu RN) 0552 (Given - Provider: Julia Lux, MICHAELA)1320 (Given - Provider: Remigio Holley, MICHAELA) aspirin EC tablet 81 mg 81 mg, Oral, DAILY, First dose on Mon09/08/15 at 0900, Until Discontinued, Recovery (Recovery-Hospital Unit), Routine 0847 (Given - Provid er: Remigio Holley RN) atorvastatin (LIPITOR) tablet 10 mg 10 mg, Oral, EVERY EVENING, First dose on Mon09/07/15 at 2000, Until Discontinued, Interchange.for pravastatin., Routine 2132 (Given - Provider: Gema Siu RN) carvedilol (COREG) tablet 6.25 mg 6.25 mg, Oral, DAILY, First dose on Mon09/08/15 at 0900, Until Discontinued, Hold for systolic blood pressure less than 110 or heart rate less than 60, Recovery (Recovery-Hospital Unit), Routine 0900 (Not Given - Provider: Remigio Holley RN - Reason: Order parameters not met) ceFAZolin (ANCEF) 1g in dextrose 5% 50mL 1,000 mg (1 g), Intravenous, EVERY 8 HOURS, 3 doses, First dose on Mon09/07/15 at 2000, Last dose on Mon09/08/15 at 1200, Administer over 30 Minutes, Adjust to 4 hours from intraoperative dose. * Beta-lactam based antibiotics (eg. Ampicillin, Cefazolin, Aztreonam) should be administered within 4 hours of the preceding intraoperative dose. * Vancomycin, Flouroquinolones, Clindamycin, Gentamicin, and Metronidazole should be administered within 8 hours of the preceding intraoperative dose., Recovery (Recovery-Hospital Unit), Indication for (Active or Suspected): Prophylaxis 2054 (Given - Provider: Nicolasa Sanabria, MICHAELA) 0417 (Given - Provider: Nicolasa Sanabria, MICHAELA)1217 (Given - Provider: Remigio Holley RN) ceFAZolin (ANCEF) 3g in dextrose 5% 100 mL (COMPLETED) 3 g, Intravenous, EVERY 3 HOURS, 1 dose, First dose on Mon09/07/15 at 1015, Administer over 30 Minutes, Redose after 3 hours., Intra-Operative (Intra-Procedure), Indication for (Active or Suspected): Prophylaxis 1221 (Given - Provider: Lg Warren MD) clopidogrel (PLAVIX) tablet 75 mg 75 mg, Oral, DAILY, First dose on Mon09/08/15 at 0900, Until Discontinued, Recovery (Recovery-Hospital Unit), Routine 0848 (Given - Provid er: Remigio Holley RN) dexamethasone (DECADRON) tablet 4 mg (COMPLETED) 4 mg, Oral, DAILY, 2 doses, First dose on Mon09/07/15 at 1630, Last dose on Mon09/08/15 at 0900, Recovery (Recovery-Hospital Unit), STAT 1604 (Given - Provider: Ismael Barber RN) 0848 (Given - Provider: Remigio Holley RN) ezetimibe (ZETIA) tablet 10 mg 10 mg, Oral, DAILY, First dose on Mon09/08/15 at 0900, Until Discontinued, Recovery (Recovery-Hospital Unit), Routine 0848 (Given - Provid er: Remigio Holley RN) gabapentin (NEURONTIN) capsule 300 mg (COMPLETED) 300 mg, Oral, ONCE, 1 dose, On Mon09/07/15 at 1015, Administer on arrival in Same Day Program, Day of Surgery (Day of Procedure), Routine 1015 (Given - Provider: Tung Macias RN) gabapentin (NEURONTIN) capsule 300 mg(Linked Group 1) 300 mg, Oral, NIGHTLY, First dose on Mon09/09/15 at 2100, Until Discontinued, Recovery (Recovery-Hospital Unit), Routine gabapentin (NEURONTIN) capsule 600 mg(Linked Group 1) 600 mg, Oral, NIGHTLY, 2 doses, First dose on Mon09/07/15 at 2100, Last dose on Mon09/08/15 at 2100, Recovery (Recovery-Hospital Unit), Routine 2133 (Given - Provider: Gema Siu RN) ketorolac (TORADOL) injection 15 mg (CANCELED) 15 mg, Intravenous, EVERY 6 HOURS SCHEDULED, 4 doses, First dose on Mon09/07/15 at 1545, Last dose on Mon09/08/15 at 1200, Recovery (Recovery-Hospital Unit), Routine 1531 (Given - Provider: Ismael Barber RN)2342 (Given - Provider: Nicolasa Sanabria RN) 0553 (Given - Provider: Julia Lux, MICHAELA) multivitamin Vtnl-Qr-CK-Min (THERAPEUTIC-M) 27-0.4 mg tablet 1 tablet 1 tablet, Oral, DAILY, First dose on Mon09/07/15 at 1999, Until Discontinued, Recovery (Recovery-Hospital Unit) 1999 (Not Given - Provider: Nicolasa Sanabria RN - Reason: Patient/family refused) 0847 (Given - Provider: Remigio Holley RN) pantoprazole (PROTONIX) tablet 20 mg 20 mg, Oral, DAILY, First dose on Mon09/07/15 at 1999, Until Discontinued, DO NOT CRUSH OR OPEN, Recovery (Recovery-Hospital Unit) 2133 (Given - Provider: Gema Siu RN) 0847 (Given - Provider: Remigio Holley RN) polyethylene glycol (MIRALAX) packet 17 g 17 g, Oral, 2 TIMES DAILY, First dose on Mon09/07/15 at 2099, Until Discontinued, Recovery (Recovery-Hospital Unit), Routine 2133 (Given - Provider: Gema Siu RN) 0847 (Given - Provider: Remigio Holley RN) senna-docusate (PERICOLACE) 8.6-50 mg per tablet 2 tablet 2 tablet, Oral, 2 TIMES DAILY, First dose on Mon09/07/15 at 2100, Until Discontinued, Recovery (Recovery-Hospital Unit), Routine 2132 (Given - Provider: Gema Siu RN) 0849 (Given - Provider: Remigio Holley, IMCHAELA) sodium chloride 0.9 % flush 5 mL 5 mL, Intravenous, 2 TIMES DAILY, First dose on Mon09/07/15 at 2100, Until Discontinued, Recovery (Recovery-Hospital Unit), Routine 2099 (Not Given - Provider: Gema Siu RN - Reason: See comment - Comment: infusing) 0900 (Not Given - Provider: Remigio Holley RN - Reason: Loss of access) Continuous Medication Order 09/06/2015 09/07/2015 09/08/2015 lactated ringers infusion 1,000 mL (CANCELED) 1,000 mL, at 100 mL/hr, Intravenous, CONTINUOUS, Starting on Mon09/07/15 at 1015, Until Mon09/07/15 at 1713, Day of Surgery (Day of Procedure) 1015 (New Bag - Provider: Tung Macias, MICHAELA)1138 (New Bag - Provider: Lg Warren MD)1408 (New Bag - Provider: Lg Warren MD) lactated ringers infusion 1,000 mL 1,000 mL, at 100 mL/hr, Intravenous, CONTINUOUS, Starting on Mon09/07/15 at 1630, Until Mon09/08/15 at 1713, Recovery (Recovery-Hospital Unit) 1617 (New Bag - Provider: Ismael Barber, RN) 0249 (New Bag - Provider: Nicolasa Sanabria RN) PRN Medication Order 09/06/2015 09/07/2015 09/08/2015 bisacodyl (DULCOLAX) EC tablet 10 mg 10 mg, Oral, 2 TIMES DAILY PRN, Starting on Mon09/07/15 at 1821, Until Mon09/08/15 at 1713, Constipation, DO NOT CRUSH OR OPEN Administer [...] 10 mg, Rectal, DAILY PRN, Starting on Mon09/07/15 at 1821, Until Mon09/08/15 at 1713, Constipation, Administer if needed per patient's routine or if no bowel movement within 48 hours to achieve: 1) One bowel movement at least every 48 hours, AND 2) Without straining. If multiple bowel medications ordered, consider adding bisacodyl if polyethylene glycol (MIRALAX), docusate/senna, or lactulose not sufficient. If patient unable to take PO, may give IL if ordered, Recovery (Recovery-Hospital Unit), Routine BUpivacaine-EPINEPHrine 0.25 %-1:200,000 injection (CANCELED) ONCE PRN, Starting on Mon09/07/15 at 1418, Until Mon09/08/15 at 1713, Intra-Operative (Intra-Procedure), Routine 1418 (Given - Provider: Heidy Escalera MD - Comment: 50 mL of 0.25% marcaine with epi mixed with 50mcg clonidine and 30mg ketoralac; of this mixture, 20 mL was used) cloNIDine injection (CANCELED) ONCE PRN, Starting on Mon09/07/15 at 1426, Until Mon09/08/15 at 1713, Intra-Operative (Intra-Procedure), Routine 1426 (Given - Provider: Heidy Escalera MD - Comment: 50 mL of 0.25% marcaine with epi mixed with 50mcg clonidine and 30mg ketoralac; of this mixture, 20 mL was used) HYDROmorphone (DILAUDID) syringe 0.2 mg 0.2 mg, Intravenous, EVERY 1 HOUR PRN, Pain, for breakthrough pain only, Starting on Mon09/07/15 at 1821, Until Mon09/08/15 at 1713, Recovery (Recovery-Hospital Unit) ketorolac (TORADOL) injection (CANCELED) ONCE PRN, Starting on Mon09/07/15 at 1426, Until Mon09/08/15 at 1713, Intra-Operative (Intra-Procedure), Routine 1426 (Given - Provider: Heidy Escalera MD - Comment: 50 mL of 0.25% marcaine with epi mixed with 50mcg clonidine and 30mg ketoralac; of this mixture, 20 mL was used) lactulose (CHRONULAC) 20 gram/30 mL oral solution 20-40 g 20-40 g (30-60 mL), Oral, DAILY PRN, Starting on Mon09/07/15 at 1821, Until Mon09/08/15 at 1713, Constipation, Administer if needed per patient's routine [...] Subcutaneous, ONCE PRN, 1 dose, Starting on Mon09/07/15 at 1821, Until Mon09/08/15 at 1713, for discomfort with PIV insertion, Recovery (Recovery-Hospital Unit), Routine midazolam (PF) (VERSED) 1 mg/mL injection 1 mg (CANCELED) 1 mg, Intravenous, EVERY 5 MIN PRN, Starting on Mon09/07/15 at 0957, Until Mon09/07/15 at 1713, Sleep, or prior to injection of local anesthetic, Hold for delirium/agitation. (Maximum dose 5 mg)., Day of Surgery (Day of Procedure), Routine 1100 (Given - Provider: Tung Macias RN)1105 (Given - Provider: Tung Macias RN)1138 (Given - Provider: Lg Warren MD) nitroGLYcerin (NITROSTAT) SL tablet 0.4 mg 0.4 mg, Sublingual, EVERY 5 MIN PRN, Starting on Mon09/08/15 at 0000, Until Mon09/08/15 at 1713, Chest pain, SL nitroglycerin may be repeated every 5 minutes as needed up to 3 doses, Recovery (Recovery-Hospital Unit), Routine ondansetron (ZOFRAN) injection 4 mg (CANCELED) 4 mg, Intravenous, EVERY 30 MIN PRN, Starting on Mon09/07/15 at 1403, Until Mon09/07/15 at 1713, Nausea, May repeat 4 mg once in 30 minutes. If multiple antiemetics ordered, use ondansetron first and if ineffective use prochlorperazine second and if ineffective use promethazine, PACU Recovery 1500 (Given - Provider: Ismael Barber RN) ondansetron (ZOFRAN) injection 4 mg(Linked Group 2) 4 mg, Intravenous, EVERY 8 HOURS PRN, Starting on Mon09/07/15 at 1821, Until Mon09/08/15 at 1713, Nausea, May repeat times one in 30 minutes if ineffective. If multiple antiemetics are ordered, use ondanstron first, Recovery (Recovery-Hospital Unit) ondansetron (ZOFRAN) tablet 4 mg(Linked Group 2) 4 mg, Oral, EVERY 8 HOURS PRN, Starting on Mon09/07/15 at 1821, Until Mon09/08/15 at 1713, Nausea, Vomiting, If multiple antiemetics are ordered, use ondansetron first. PO Preferred. If patient unable to take PO, may give IV if ordered. May repeat times one in 45 minutes if ineffective., Recovery (Recovery-Hospital Unit), Routine oxyCODONE (ROXICODONE) immediate release tablet 5-15 mg 5-15 mg, Oral, EVERY 4 HOURS PRN, Starting on Mon09/07/15 at 1521, Until Mon09/08/15 at 1713, Pain, Give 5 mg for mild pain (1-3), 10 mg for moderate pain (4-6) or 15 mg for severe pain (7-10) May give an additional 5 mg in 30 minutes ONCE if pain not relieved., Recovery (Recovery-Hospital Unit), Routine sodium chloride 0.9 % flush 5-20 mL 5-20 mL, Intravenous, EVERY 1 MIN PRN, Starting on Mon09/07/15 at 1821, Until Mon09/08/15 at 1713, flush, Flush pertains to all indwelling lines. Flush per protocol found in the job aid using the link provided on this medication record., Recovery (Recovery-Hospital Unit), Routine Linked Groups Order Group 1: gabapentin (NEURONTIN) capsule 600 mgJump to med 600 mg, Oral, NIGHTLY, 2 doses, First dose on Mon09/07/15 at 2100, Last dose on Mon09/08/15 at 2100, Recovery (Recovery-Hospital Unit), Routine Followed by gabapentin (NEURONTIN) capsule 300 mgJump to med 300 mg, Oral, NIGHTLY, First dose on Mon09/09/15 at 2100, Until Discontinued, Recovery (Recovery-Hospital Unit), Routine Group 2: ondansetron (ZOFRAN) tablet 4 mgJump to med 4 mg, Oral, EVERY 8 HOURS PRN, Starting on Mon09/07/15 at 1821, Until Mon09/08/15 at 1713, Nausea, Vomiting, If multiple antiemetics are ordered, use ondansetron first. PO Preferred. If patient unable to take PO, may give IV if ordered. May repeat times one in 45 minutes if ineffective., Recovery (Recovery-Hospital Unit), Routine Or ondansetron (ZOFRAN) injection 4 mgJump to med 4 mg, Intravenous, EVERY 8 HOURS PRN, Starting on 09/07/15 at 1821, Until Mon09/08/15 at 1713, Nausea, May repeat times one in 30 minutes if ineffective. If multiple antiemetics are ordered, use ondanstron first, Recovery (Recovery- Hospital Unit) documented in this encounter Care Teams Paper Bag Machine Operator Relationship Specialty Start Date End Date Phoenix Guzmán DO [address] [place] [address] [place] [id number] PCP - General General Internal Medicine 02/20/15 documented as of this encounter
--- OUTSIDE RECORDS SUMMARY | 2023-10-23 09:09 | XMS_ITS | Encounter Summary ---
[place] [address] Care Team Providers Care Service Captain Name Role Phone Phoenix Guzmán Primary Care Provider [phone] Reason for Visit * Reason Onset Date Comments Post Hospital Discharge 09/10/2015 Encounter Details Date Type Department Care Team (Late st Contact Info) Description 09/10/2015 Telephone [place] [address] Walter Rae MD [facility] DR ORTHOP[place] [address] Post Hospital Discharge Social History Tobacco Use Types Packs/Day Years [...] encounter Miscellaneous Notes * Telephone Encounter - Ruben Sands RN - 09/10/2015 4:17 PM EDT Date of surgery 09/07/15 Type of surgery left total knee replacement Surgeon: Dr. Rae Call made within 2 weeks of discharge? Yes Is pain under control?yes Having bowel movements?yes Concerns with incision?no Has the [facility] been in contact?yes Anticoagulation plan? Resume pre op Plavix and [facility] Rehab facility? Concerns? documented in this encounter Plan of Treatment Upcoming Encounters Date Type Department Care Team (Late st Contact Info) Description 10/31/2023 9:15 AM EDT Office Visit Dermatology at [facility] [address] [place] [address] Dawson Broderick MD [facility] DR [facility] [place] [address] 07/23/2024 9:30 AM EDT Office Visit Dermatology at [facility] [address] [place] [address] Dawson Broderick MD [facility] [place] [address] documented as of this encounter Visit Diagnoses Not on filedocumented in this encounter Care Teams Service Captain Relationship Specialty Start Date End Date Phoenix Guzmán DO [address] [place] [address] [place] [address] PCP - General General Internal Medicine 02/20/15 documented as of this encounter
--- OUTSIDE RECORDS SUMMARY | 2023-10-23 09:09 | XMS_ITS | Encounter Summary ---
[place] [address] Care Team Providers Care Ancillary Services Manager Name Role Phone Phoenix Guzmán Primary Care Provider [phone] Reason for Visit * Reason Onset Date Comments Pre Procedure Call 07/24/2015 Encounter Details Date Type Department Care Team (Late st Contact Info) Description 07/24/2015 Telephone [place] [address] Walter Rae MD [facility] [place] [address] Pre Procedure Call Social History Tobacco Use [...] encounter Miscellaneous Notes * Telephone Encounter - Sara Hammer - 07/27/2015 10:49 AM EDT Patient returned my call and I have confirmed the 09/07/15 date of surgery for his BILAT TKAs. Thank you. * Telephone Encounter - Sara Hammer - 07/24/2015 9:26 AM EDT I have called and left patient a message to call us back directly. Patient has to cancel his 07/19 surgery and I tenatively held time for him on 09/04/15 however I was unable to find an assisting surgeon on that day. I have been able to find time for the surgery and an assisting surgeon on 09/07/15. I need to confirm this date with the patient and coordinate getting him in to be seen for pre-op clearance by Dr. Miranda and repeat PAT. documented in this encounter Plan of Treatment Upcoming Encounters Date Type Department Care Team (Late st Contact Info) Description 10/31/2023 9:15 AM EDT Office Visit Dermatology at [facility] [address] [place] [address] Dawson Broderick MD [facility] [place] [address] 07/23/2024 9:30 AM EDT Office Visit Dermatology at [facility] [address] [place] [address] Dawson Broderick MD [facility] [place] [address] documented as of this encounter Visit Diagnoses Not on filedocumented in this encounter Care Teams Ancillary Services Manager Relationship Specialty Start Date End Date Phoenix Guzmán DO [address] [place] [address] [place] [id number] PCP - General General Internal Medicine 02/20/15 documented as of this encounter
--- OUTSIDE RECORDS SUMMARY | 2023-10-23 09:09 | XMS_ITS | Encounter Summary ---
[place] [address] Care Team Providers Care Machine Farmworker Name Role Phone Phoenix Guzmán DO Primary Care Provider [phone] Reason for Referral * Physical Therapy (Routine) - Specialty Diagnoses / Procedures Referred By Omid shepherd Referred To Contact Physical Therapy Diagnoses Status post total replacement of right hip Pain of right lower extremity Walter Rae MD [facility] [place] [address] Referral ID Status Reason Start Date Expiration Date V isits Requested Visits Authorized [id number] Evaluate and Treat 04/26/2016 10/23/2016 12 12 Encounter Details Date Type Department Care Team (Late st Contact Info) Description 04/26/2016 [place] [address] Walter Rae MD [facility] [place] [address] Status post total replacement of right hip; [...] Visit Dermatology at [facility] [address] [place] [address] Dawson Broderick MD [facility] [address] [place] [address] 07/23/2024 9:30 AM EDT Office Visit Dermatology at [facility] [address] [place] [address] Dawson Broderick MD [facility] [place] [address] Scheduled Referrals Name Type Priority Associated Diagnoses Orde r Schedule Referral to Physical Therapy Outpatient Referral Routine Status post total replacement of right hip Pain of right lower extremity Ordered: 04/26/2016 documented as of this encounter Visit Diagnoses Diagnosis Status post total replacement of right hip Pain of right lower extremity documented in this encounter Care Teams Machine Farmworker Relationship Specialty Start Date End Date Phoenix Guzmán DO [address] [place] [address] [place] [address] PCP - General General Internal Medicine 02/20/15 documented as of this encounter
--- OUTSIDE RECORDS SUMMARY | 2023-10-23 09:09 | XMS_ITS | Encounter Summary ---
Author Organization [facility] [place] [address] Care Team Providers Care [employer] Teacher Name Role Phone DevantePhoenix orozco Susan MCDOWELL Primary Care Provider [phone] Reason for Visit * Auth/Cert Specialty Diagnoses / Procedures Referred By Omid shepherd Referred To Contact Diagnoses Arthritis of knee B/L Knee OA n/a Procedures PRO TOTAL KNEE ARTHROPLASTY @TOTAL KNEE ARTHROPLASTY MODIFIER: ATTUNE STABILIZED FIXED PLATFORM DEPUY Referral ID Status Reason Start Date Expiration Date Visits Re quested Visits Authorized [id number] 1 1 Encounter Details Date Type Department Care Team (Late st Contact Info) Description 09/07/2015 11:24 AM EDT - 09/07/2015 1:52 PM EDT Surgery [place] [id number] Walter Rae MD [facility] [place] [address] TOTAL KNEE ARTHROPLASTY (WRVU 19.6) Social History [...] Sign Reading Time Taken Comments Blood Pressure 134/80 09/07/2015 11:30 AM EDT Pulse 83 09/07/2015 11:30 AM EDT Temperature 36.7 ??C (98.1 ??F) 09/07/2015 10:07 AM E DT Respiratory Rate 16 09/07/2015 11:30 AM EDT Oxygen Saturation 94% 09/07/2015 11:30 AM EDT Inhaled Oxygen Concentration - - Weight 127.9 kg (282 lb) 09/07/2015 9:58 AM EDT Height - - Body Mass Index 38.65 09/07/2015 6:30 PM EDT documented in this encounter Discharge Summaries * Julia Soriano P, VICE PRESIDENT CONSULTING SERVICES - 09/08/2015 12:33 PM EDT Discharge Summary Patient Name: Gunnar Morin Patient Age: 70 y.o. Language: Georgian Race: White Ethnicity: Not nor Admit date: 09/07/2015 Discharge date and time: 09/08/2015 Attending Physician: Walter Rae MD Discharge Physician: Walter Rae MD Follow-up Recommendations for Providers: See discharge instructions for additional details. Future Appointments Date Time Provider Department Center 10/08/2015 9:30 AM [facility] DX ROOM 3 [facility] X[facility] 10/08/2015 10:30 AM Walter Rae MD [facility] 10/08/2015 12:00 PM Bryant Miranda MD [facility] 12/03/2015 9:00 AM [facility] DX ROOM 6 Xray [facility] 12/03/2015 10:00 AM Walter Rae MD [facility] Inpatient Provider Contact Information: Walter Rae MD Orthopaedics: [phone]. After hours and weekends, call [facility] Campus Recruiter, , and have the Orthopedic resident paged. [...] Weight: Wt Readings from Last 1 Encounters: //16 (!) 129.3 kg (285 lb) Height: Ht Readings from Last 1 Encounters: 09/06/16 182.9 cm (6') HC: HC Readings from [...] bowel movement. You can also take an nrve-zac-retvtfp medication, Miralax if needed to combat constipation. [...] 1. You will have follow-up appointments at [facility] as indicated below in Future Appointment and Orders. 2. You will need to have x-rays prior to your follow-up appointment on 10/08/2015. Please come to Radiology, desk 3T, 1 hour BEFORE that appointment for those x-rays. Future Appointments Date Time Provider Department Center 10/08/2015 9:30 AM [facility] DX ROOM 3 Xray [facility] 10/08/2015 10:30 AM Walter Rae MD [facility] 10/08/2015 12:00 PM Bryant Miranda MD [facility] 12/03/2015 9:00 AM [facility] DX ROOM 6 Xray [facility] [...] Provider Department Dept Phone 10/08/2015 9:30 AM [facility] DX ROOM 3 [facility] Xray [phone] Please go to Spectral Scientist Area 3T ([place] Location). 10/08/2015 10:30 AM Walter Rae MD Orthopaedics [phone] 10/08/2015 12:00 PM Bryant Miranda MD Orthopaedics [phone] 12/03/2015 9:00 AM MH DX ROOM 6 [facility] Xray [phone] Please go to Spectral Scientist Area 3T ([place] Location). 12/03/2015 10:00 AM Walter Rae MD Orthopaedics [phone] Future Orders Complete By Expires Referral to Home Health - at DISCHARGE [[id number] CPT(R)] As directed Process Instructions: Scheduling Instructions: Comments: DISCHARGE DOCUMENTATION FOR VNA SERVICES (INCLUDING THOSE PATIENTS WITH MEDICARE COVERAGE BEING DISCHARGED HOME WITH VNA SERVICES AND THOSE PATIENTS WITH MEDICARE COVERAGE WHO ARE BEING DISCHARGED HOME WITH HOSPICE SERVICES) Gunnar Morin [address] [place] [phone] (home) Telephone Information: Asset Administrator: himself In discussion with the attending physician, it is certified that this patient is under their care and that they, or a nurse practitioner, clinical nurse specialist or physician's visitor use assistant who is working directly with them, [...] for home health services. HOME HEALTH AGENCY: [facility]. PHONE: [phone] FAX: [phone] Home care orders for Total KneeArthroplasty: 1.RN: [...] this patient's PCP: PHOENIX GUZMÁN DO [address] [place] [address] All A agencies which cover the area of patient's residence have been reviewed, either verbally santy writing, and patient/family have chosen the indicated home health care agency for home services. Questions: Agency name and contact information: [facility] Patient location post discharge: home What services are requested: Registered Nurse Physical Therapy Start date: 09/09/2015 Responsible MD post discharge contact info: Dr Rae Primary Care Provider: PHOENIX GUZMÁN DO [phone] Discharge References/Attachments None documented in this encounter Discharge Instructions * Discharge Instructions* Julia Soriano, VICE PRESIDENT CONSULTING SERVICES - 09/08/2015 12:32 PM EDT Activity: 1. [...] bowel movement. You can also take an lpic-eim-btouhbp medication, Miralax if needed to combat constipation. [...] 1. You will have follow-up appointments at [facility] as indicated below in Future Appointment and Orders. 2. You will need to have x-rays prior to your follow-up appointment on 10/08/2015. Please come to Radiology, desk 3T, 1 hour BEFORE that appointment for those x-rays. Future Appointments Date Time Provider Department Center 10/08/2015 9:30 AM [facility] DX ROOM 3 Xray [facility] 10/08/2015 10:30 AM Walter Rae MD [facility] 10/08/2015 12:00 PM Bryant Miranda MD [facility] 12/03/2015 9:00 AM [facility] DX ROOM 6 Xray [facility] 12/03/2015 10:00 AM Walter Rae MD [facility] If you have questions or concerns: Monday through Monday, 8 AM - 5 PM, please call Walter Christianson MD's office at . If it is after 5 PM, the weekend, or holidays, please call and [facility]. documented in this encounter Medications [...] was instructed to contact Regional Anesthesia Team ([id number]) for any unresolved sensory or motor deficits. ?? Thank you for the opportunity to have participated in the care of this patient. DAVID MANCIA MD Regional Team pager [phone] * Heidy Escalera MD - 09/08/2015 7:39 [...] Time Provider Department Center 10/08/2015 9:30 AM [facility] DX ROOM 3 Xray [facility] 10/08/2015 10:30 AM Walter Rae MD [facility] 10/08/2015 12:00 PM Bryant Miranda MD [facility] 12/03/2015 9:00 AM [facility] DX ROOM 6 Xray [facility] [...] EDT Office of Care Management (OCM) / Timber Poisoner(CM)/ Initial Assessment Discussed patient with Provider Team [...] high rise toilet seat. Home Health Agency: [facility] [address] [place] [address] SNF: [facility] OP PT: [facility] [address] [place] [address] [employer] [place] [place] REFERRAL: not needed at this time or Notified for: PRIMARY CARE PHYSICIAN: PHOENIX GUZMÁN DO [address] [facility] [phone] POTENTIAL DISCHARGE NEEDS: None foreseen. ANTICIPATED BARRIERS [...] Notes * Care Management - Hernesto Myles, RN - 09/08/2015 12:10 PM EDT Chart reviewed and met with pt and . Pt is sitting in cardiac chair in NAD and eager to go home. He had L TKA yesterday by Dr Rae. Pt plans on d/c home today and requests [facility] for services. He will be on ASA, SR in 10-14 days, and Home PT 3x wk. Pt has the DME he needs. * Initial Assessments - Remigio Yanes, PT - 09/08/2015 11:32 AM EDT Physical [...] ARTHROPLASTY performed by Walter Rae MD at [facility] MAIN OR Social History: Patient lives [...] Equipment needs: Patient has all necessary equipment [facility] AM-PAC 6 Clicks Basic Mobility Inpatient [...] CMS Modifier: CH Time IN / OUT: [id number] Total time spent with patient: 22 minutes for evaluation, 10 minutes for therex Total timed interventions: 0 minutes Billing: one evaluation, one therex REMIGIO YANES PT, DPT 09/08/2015 Pager: [phone] Physical Therapy Inpatient Rehabilitation Department * Plan [...] [direct monitoring required during toileting and ADLs]: RN/PAUL Surveillance [continuous indirect monitoring]: Purposeful hourly rounding, masimo Patient-specific fall prevention interventions for sensory deficits provided, if applicable: No CPG GOAL OUTCOME EVALUATION: Goal: Skin Integrity/Wound Healing Patient will demonstrate the desired outcomes. Outcome: Ongoing (Interventions Implemented as Appropriate) 09/07/151912 Skin Integrity Impairment, Risk/Actual (Adult, Obstetrics) Skin Integrity/Wound Healing making progress toward outcome * Brief Op Note - Watler Rae MD - 09/07/2015 2:22 PM EDT Brief Operative Note Patient Name: Gunnar Morin : [id number] MR#: [id number] Date of surgery: September 07, 2015 Preoperative diagnosis: Left knee osteoarthritis Postoperative diagnosis: Left knee osteoarthritis Procedure: Left total knee arthroplasty [73795] Anesthesia: General Surgeon: Walter Rae MD MS Blade Groover: Heidy Escalera MD Estimated blood loss: 200 [...] Rae MD - 09/07/2015 2:21 PM EDT [facility] Operative Note Patient Name: Gunnar Morin : [id number] MR#: [id number] Date of surgery: September 07, 2015 Preoperative diagnosis: Left knee osteoarthritis Postoperative diagnosis: Left knee osteoarthritis Procedure: Left total knee arthroplasty [10567] Anesthesia: General Surgeon: Walter Rae MD MS Blade Groover: Heidy Escalera MD Estimated blood loss: 200 [...] [facility] [address] [place] [address] Efren Broderick MD [facility] [place] [address] 07/23/2024 9:30 AM EDT Office Visit Dermatology at [facility] [address] [place] [address] Efren Broderick MD [facility] [place] [address] documented as of this encounter Procedures Procedure [...] knees TYPE AND SCREEN, SDP (FUTURE SURGERY, [facility] SAME DAY PROGRAM ONLY) Routine 09/07/2015 7:52 [...] 5:13 AM EDT) Neutrophils % 84.6 % [facility] Neutr Abs (ANC) 7.53(H) 1.50 - 6.30 x10(3)/ L [facility] Lymphocytes % 7.5 % [facility] Lymphocytes Abs 0.7(L) 1.0 - 3.6 x10(3)/[facility] Monocytes % 7.8 % [facility] Monocyte Abs 0.7 0.2 - 1.0 x10(3)/[facility] Eosinophils % 0.0 % [facility] Eosinophils Abs 0.0 0.0 - 0.5 x10(3)/[facility] Basophils % 0.0 % [facility] Basophils Abs 0.0 0.0 - 0.2 x10(3)/[facility] Immature Gran % 0.10 % [facility] Comment: Immature granulocytes(IG's)percentage and absolute count will include metamyelocytes, myelocytes, and promyelocytes. Blood smears from CBCs yielding IG's will be scanned manually for concordance. If this scan disagrees with the automated IG or if promyelocytes are noted, a manual differential will be performed. Geovanna Gran Abs 0.01 0.00 - 0.05 x10(3)/ L [facility] Blood specimen (specimen) 09/08/2015 5:13 AM EDT 09/08/2015 5:26 AM EDT Narrative Resulting Agency Comment Spec In Lab Walter Rae MD HEMATOLOGY ORDERABLE S [facility] [place] [address] * (ABNORMAL) Hemogram (09/08/2015 5:13 AM EDT) WBC 8.9 4.0 - 10.0 x10(3)/[facility] RBC 3.98(L) 4.63 - 6.08 x10(6)/[facility] Hemoglobin 12.5(L) 13.7 - 17.5 gm/dL [facility] Hematocrit 38.6(L) 40.0 - 51.0 % [facility] MCV 97.0(H) 79.0 - 92.0 fL [facility] MCH 31.4 25.6 - 32.2 pg [facility] MCHC 32.4 32.0 - 36.5 gm/dL [facility] Platelets 214 145 - 370 x10(3)/[facility] RDWSD 46.7(H) 35.0 - 46.0 fL [facility] RDWCV 13.2 10.9 - 14.4 % [facility] MPV 10.3 9.0 - 12.0 fL [facility] Blood specimen (specimen) 09/08/2015 5:13 AM EDT 09/08/2015 5:26 AM EDT Narrative Resulting Agency Comment Spec In Lab Walter Rae MD HEMATOLOGY ORDERABLE S Performing Organization Address City/[facility]/ZIP Co de Phone Number [facility] [place] [address] * (ABNORMAL) Basic Metabolic Panel (non-fasting) (09/08/2015 5:13 AM EDT) Glucose Lvl 150 65 - 199 mg/dL [facility] Comment:Diabetes: >=200 mg/d L plus symptoms BUN 16 10 - 20 mg/dL [facility] Creatinine 1.20 0.80 - 1.50 mg/dL [facility] Comment: Please note that the pediatric reference intervals supplied above were not validated at [facility]. Results from pediatric patients should be interpreted in conjunction to the patient's age, height and muscle mass. Sodium 138 135 - 145 mmol/L [facility] Potassium 4.8 3.5 - 5.0 mmol/L [facility] Comment: Please note: ??Patients with WBC >100,000 may have falsely elevated Potassium levels. ??For accurate Potassium quantification in these patients send serum separator tube (gold top) for subsequent determinations. ??Contact the Clinical Chemistry Laboratory if there are any questions. Chloride 100 98 - 107 mmol/L [facility] CO2 28 22 - 31 mmol/L [facility] Anion Gap 10 5 - 15 mmol/L [facility] Calcium 8.2(L) 8.5 - 10.5 mg/dL [facility] Estimated GFR 60 >=60 [facility] Comment: This [...] the following links into your internet browser. [email or web address] Blood specimen (specimen) 09/08/2015 5:13 AM EDT 09/08/2015 5:26 AM EDT Narrative Resulting Agency Comment Spec In Lab Walter Rae MD CHEMISTRY ORDERABLES Performing Organization Address City/[facility] Co de Phone Number [facility] [place] [address] * Antibody screen (09/07/2015 7:52 AM EDT) Ab Screen Interp Negative [facility] Expires at 2359 on: 09/10/2015 [facility] Blood specimen (specimen) 09/07/2015 7:52 AM EDT 09/07/2015 7:58 AM EDT Narrative Resulting Agency Comment Spec In Lab Walter Rae MD BLOOD BANK LAB ORDER ADRIA Performing Organization Address [facility] Co de Phone Number [facility] [place] [address] * ABO/Rh Typing (09/07/2015 7:52 AM EDT) ABORH Type A Neg [facility] Blood specimen (specimen) 09/07/2015 7:52 AM EDT 09/07/2015 7:58 AM EDT Narrative Resulting Agency Comment Spec In Lab Walter Rae MD BLOOD BANK LAB ORDER ADRIA Performing Organization Address [facility] Co de Phone Number [facility] [place] [address] documented in this encounter Visit Diagnoses Diagnosis Primary osteoarthritis of both knees Primary localized osteoarthrosis, lower leg Arthritis of knee Unspecified arthropathy, lower leg Primary osteoarthritis of both knees Primary localized osteoarthrosis, lower leg documented in this encounter Admitting [...] Given 09/07/2015 9:33 PM EDT 10 mg BUpivacaine-EPINEPHrin e 0.25 %-1:200,000 injection ONCE PRN, Starting on Mon09/07/15 at 1418, Until Mon09/08/15 at 1713, Intra-Operative (Intra-Procedure), Routine Given 09/07/2015 2:18 PM EDT 50 mLs 19- Surgical Site cloNIDine injection ONCE PRN, Starting on Mon09/07/15 at 1426, Until Mon09/08/15 at 1713, Intra-Operative (Intra-Procedure), Routine Given 09/07/2015 2:26 PM EDT 50 mcg 19- Surgical Site clopidogrel (PLAVIX) tablet 75 mg 75 mg, Oral, DAILY, First dose on Mon09/08/15 at 0900, Until Discontinued, Recovery (Recovery-Hospital Unit), Routine Given 09/08/2015 8:48 AM EDT 75 mg ezetimibe (ZETIA) tablet 10 mg 10 [...] ketorolac (TORADOL) injection ONCE PRN, Starting on Mon09/07/15 at 1426, Until Mon09/08/15 at 1713, Intra-Operative (Intra-Procedure), Routine Given 09/07/2015 2:26 PM EDT 30 mg 19- Surgical Site lactated ringers infusion 1,000 mL 1,000 mL, at 100 mL/hr, Intravenous, CONTINUOUS, Starting on Mon09/07/15 at 1630, Until Mon09/08/15 at 1713, Recovery (Recovery-Hospital Unit) New Bag 09/08/2015 2:49 AM EDT 1,000 mLs 100 mL/hr New Bag 09/07/2015 4:17 PM EDT 1,000 mLs 100 mL/hr multivitamin Gbpt-Tu-OI-Min (THERAPEUTIC-M) 27-0.4 mg tablet 1 tablet 1 [...] Siu RN) 0552 (Given - Provider: Julia Lux RN)1320 (Given - Provider: Remigio Holley RN) aspirin EC tablet 81 mg 81 mg, Oral, DAILY, First dose on Mon09/08/15 at 0900, Until Discontinued, Recovery (Recovery-Hospital Unit), Routine 0847 (Given - Provid er: Remigio Holley RN) atorvastatin (LIPITOR) tablet 10 mg 10 mg, Oral, EVERY EVENING, First dose on Mon09/07/15 at 2000, Until Discontinued, Interchange.for pravastatin., Routine 2132 (Given - Provider: Gema Siu, MICHAELA) carvedilol (COREG) tablet 6.25 mg 6.25 mg, [...] Suspected): Prophylaxis 2054 (Given - Provider: Nicolasa Sanabria RN) 0417 (Given - Provider: Nicolasa Sanabria RN)1217 (Given - Provider: Remigio Holley RN) ceFAZolin [...] Ismael Barber RN)2342 (Given - Provider: Nicolasa Sanabria, MICHAELA) 0553 (Given - Provider: Julia Lux RN) multivitamin Auli-Cs-VZ-Min (THERAPEUTIC-M) 27-0.4 mg tablet 1 tablet 1 [...] NOT CRUSH OR OPEN, Recovery (Recovery-Hospital Unit) 213 (Given - Provider: Gema Siu RN) 0847 (Given - Provider: Remigio Holley RN) polyethylene glycol (MIRALAX) packet 17 g 17 g, Oral, 2 TIMES DAILY, First dose on Mon09/07/15 at 2100, Until Discontinued, Recovery (Recovery-Hospital Unit), Routine 2133 (Given - Provider: Gema Siu RN) 0847 (Given - Provider: Remigio Holley RN) senna-docusate (PERICOLACE) 8.6-50 mg per tablet 2 tablet 2 tablet, Oral, 2 TIMES DAILY, First dose on Mon09/07/15 at 2100, Until Discontinued, Recovery (Recovery-Hospital Unit), Routine 2132 (Given - Provider: Gema Siu RN) 0849 (Given - Provider: Remigio Holley RN) sodium chloride 0.9 % flush 5 [...] Procedure) 1015 (New Bag - Provider: Tung Macias RN)1138 (New Bag - Provider: Lg Warren MD)1408 (New Bag - Provider: Lg Warren MD) lactated ringers infusion 1,000 mL 1,000 mL, at 100 mL/hr, Intravenous, CONTINUOUS, Starting on Mon09/07/15 at 1630, Until Mon09/08/15 at 1713, Recovery (Recovery-Hospital Unit) 1617 (New Bag - Provider: Ismael Barber RN) 0249 (New Bag - Provider: Nicolasa [...] patient unable to take PO, may give FL if ordered, Recovery (Recovery-Hospital Unit), Routine BUpivacaine-EPINEPHrine [...] Unit) documented in this encounter Care Teams [employer] Teacher Relationship Specialty Start Date End Date Phoenix Guzmán DO [address] [place] [address] [place] [address] PCP - General General Internal Medicine 02/20/15 documented as of this encounter
--- OUTSIDE RECORDS SUMMARY | 2023-10-23 09:09 | XMS_ITS | Encounter Summary ---
[place] [address] Care Team Providers Care Nuclear Physics Teacher Name Role Phone DevantePhoenix orozco Primary Care Provider [phone] Reason for Referral * Diagnostic Test (Routine) - Closed Specialty Diagnoses / Procedures Referred By Omid shepherd Referred To Contact Radiology Diagnoses Status post total replacement of right hip Procedures CT Hip wo Contrast Right (Generic) Jerel Quintanilla MD [facility] [place] [address] [facility] [place] [address] Referral ID Status Reason Start Date Expiration Date V isits Requested Visits Authorized [id number] Closed Specialty Service Requested 04/05/2016 06/03/2016 1 1 Encounter Details Date Type Department Care Team (Late st Contact Info) Description 02/02/2016 [place] [address] Jerel Quintanilla MD [facility] [place] [address] Status post total replacement of right hip [...] encounter Miscellaneous Notes * Addendum Note - Breonna Salomon LPN - 02/02/2016 11:57 AM EDTAddended by: BREONNA SALOMON on: 02/02/2016 11:57 AM Modules accepted: Orders documented in this encounter Plan of Treatment Upcoming Encounters Date Type Department Care Team (Late st Contact Info) Description 10/31/2023 9:15 AM EDT Office Visit Dermatology at [facility] [address] [place] [address] Dawson Broderick MD [facility] DR MYKE STE[facility] [address] 07/23/2024 9:30 AM EDT Office Visit Dermatology at [facility] [address] [place] [address] Dawson Broderick MD [facility] DR MYKE STE[facility] [address] documented as of this encounter Results * CT Hip wo Contrast Right (Generic) (04/12/2016 9:47 AM EST) Anatomical Region Laterality Modality Hip Right Computed Tomogra phy Impressions 04/12/2016 11:29 AM EST 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 Narrative 04/12/2016 11:29 AM EST EXAMINATION: CT HIP WO CONTRAST RIGHT (GENERIC) CLINICAL HISTORY: Assess for osteolysis of R ELZBIETA Rev TECHNIQUE: CT of the right hip was performed without contrast. The images were reconstructed in the coronal sagittal and axial planes. COMPARISON: X-ray 04/16/2015 and a series of earlier films dating back to 09/15/2003 FINDINGS: A noncemented total hip arthroplasty is in place. As seen on the recent x-ray examination there is asymmetric polyethylene wear and as a result the femoral head is superiorly positioned. No polyethylene fracture is identified. No hardware failure is identified. Focal areas of osteolysis are present. Deep to the acetabular cup a lytic lesion of bone is seen in the medial acetabulum measuring approximately 5 cm in diameter. No fractures identified. I do not see an extraosseous component to the collection. Additional resorption of bone with well-defined sclerotic margins is seen at the proximal femur in zones 1 and 7. Again no soft tissue collection is identified. No component displacement or other evidence of loosening is identified. Procedure Note Ezekiel Juares MD - 04/12/2016 EXAMINATION: CT HIP WO CONTRAST RIGHT (GENERIC) CLINICAL HISTORY: Assess for osteolysis of R ELZBIETA Rev TECHNIQUE: CT of the right hip was performed without contrast. The imageswere reconstructed in the coronal sagittal and axial planes. COMPARISON: X-ray 04/16/2015 and a series of earlier films dating back to 09/15/2003 FINDINGS: A noncemented total hip arthroplasty is in place. As seen on the recent x-ray examination there is asymmetric polyethylenewear and as a result the femoral head is superiorly positioned. Nopolyethylene fracture is identified. No hardware failure is identified. Focal areas of osteolysis are present. Deep to the acetabular cup a lytic lesion of bone is seen in the medial acetabulum measuring approximately 5 cm in diameter. No fracturesidentified. I do not see an extraosseous component to the collection. Additional resorption of bone with well-defined sclerotic margins is seenat the proximal femur in zones 1 and 7. Again no soft tissue collection isidentified. No component displacement or other evidence of loosening is identified. 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
--- OUTSIDE RECORDS SUMMARY | 2023-10-23 09:09 | XMS_ITS | Encounter Summary ---
Author Organization [facility] [place] [address] Care Team Providers Care Mr Teacher Name Role Phone Phoenix Guzmán DO Primary Care Provider [phone] Encounter Details Date Type Department Care Team (Late st Contact Info) Description 02/02/2016 Orders [place] [address] Violet Leyva Social History Tobacco Use Types Packs/Day Years [...] [facility] [address] [place] [address] Dawson Broderick MD [facility] DR MY[place] [address] 07/23/2024 9:30 AM EDT Office Visit Dermatology at [facility] [address] [place] [address] Dawson Broderick MD [facility] DR [place] [address] documented as of this encounter Visit Diagnoses Not on filedocumented in this encounter Care Teams Mr Teacher Relationship Specialty Start Date End Date Phoenix Guzmán DO [address] [place] [address] [place] [address] PCP - General General Internal Medicine 02/20/15 documented as of this encounter
--- OUTSIDE RECORDS SUMMARY | 2023-10-23 09:09 | XMS_ITS | Encounter Summary ---
Author Organization [facility] [place] [address] Care Team Providers Care Tire Maker Name Role Phone Phoenix Guzmán DO Primary Care Provider [phone] Reason for Visit * Reason Comments Follow Up Surgery L TKA DOS 09/07/15 Pre-op Exam R TKA 10/19/15 Encounter Details Date Type Department Care Team (Late st Contact Info) Description 10/08/2015 10:30 AM EDT Office Visit [place] [address] Walter Rae MD [facility] [place] [address] Status post total knee replacement, unspecified laterality [...] Sign Reading Time Taken Comments Blood Pressure 102/65 10/08/2015 10:38 AM EDT Pulse 92 10/08/2015 10:38 AM EDT Temperature - - Respiratory Rate - - Oxygen Saturation 97% 10/08/2015 10: 38 AM EDT Inhaled Oxygen Concentration - - Weight 117 kg (257 lb 14.4 oz) 10/08/2015 10:38 AM EDT fully clothed Height 182.9 cm (6') 10/08/2015 10:38 AM EDT with shoes Body Mass Index 34.98 10/08/2015 10:38 AM EDT documented in this encounter Progress Notes * Walter Rae MD - 10/08/2015 11:37 AM EDT Arthroplasty/Orthopaedic History: 1. Left TKA, Butch 09/07/15 HPI: Gunnar Morin is a very pleasant 70 y.o. year-old male who presents for a 4 weeks follow-up of the above procedure. The patient has been doing well and his pain is moderately improved over preoperative status. No fevers, chills, nausea, vomiting, or symptoms of infection. Gunnar has been ambulating with no assistive device and working with PT. He is not taking narcotic pain medicine. Physical Exam: Well-appearing male in no acute distress. Alert and Oriented x 3 and answers all questions appropriately. The incision is well healed, with no signs of infection. Knee Exam: Left Knee ROM: Extension:5 Flexion: 95 Alignment: 0-4 degrees Neutral Stability: A/P Translation [...] subsidence, loosening, or periprosthetic complication. Questionnaire Responses: [facility] Surgical Postop Visit 10/08/2015 PROMIS-10 General Health Very Good PROMIS-10 Quality of Life Very Good PROMIS-10 Physical Health Very Good PROMIS-10 Mental Health Very Good PROMIS-10 Social Activity Very Good PROMIS-10 Everyday Activities Moderately PROMIS-10 Pain 5 PROMIS-10 Fatigue Moderate PROMIS-10 Social Roles Very Good PROMIS-10 Anxious or Depressed Never PROMIS PHYSICAL HEALTH SCORE 42.3 PROMIS MENTAL HEALTH SCORE 56 Problems with surgical incision/wound after surgery No Gone to ER since knee surgery No Admitted to hospital since recent ortho surgery No Additional surgery on same body part No [facility] Response 10/08/2015 KOOS-PS Scores 40.3 No flowsheet data found. ASSESSMENT/PLAN: Mr. Morin is a 70 y.o. year [...] We discussed the appropriate precautions surrounding dental prophylaxis. I stressed that he should call the office for a prescription prior to any dental work for the lifetime of the joint replacement. We also discussed maintaining good foot care and giving prompt attention to any source of infection throughout the body including foot ulcers and urinary tract infections. All questions were answered. Signed: Walter Rae MD 10/08/2015 * Ruben Sands RN - 10/08/2015 10:32 AM EDT . documented in this encounter Plan of Treatment Upcoming Encounters Date Type Department Care Team (Late st Contact Info) Description 10/31/2023 9:15 AM EDT Office Visit Dermatology at [facility] [address] [place] [address] Dawson Broderick MD [facility] DR MYKE [place] [address] 07/23/2024 9:30 AM EDT Office Visit Dermatology at [facility] [address] [place] [address] Dawson Broderick MD [facility] DR MYKE [place] [address] documented as of this encounter Visit Diagnoses Diagnosis Status post total knee replacement, unspecified laterality documented in this encounter Care Teams Tire Maker Relationship Specialty Start Date End Date Phoenix Guzmán DO [address] [place] [address] [place] [address] PCP - General General Internal Medicine 02/20/15 documented as of this encounter
--- OUTSIDE RECORDS SUMMARY | 2023-10-23 09:09 | XMS_ITS | Encounter Summary ---
[place] [address] Care Team Providers Care Biopharmaceutical Rep Name Role Phone Phoenix Guzmán DO Primary Care Provider [phone] Encounter Details Date Type Department Care Team (Late st Contact Info) Description 04/20/2016 Orders [place] [address] Walter Rae MD [facility] ORTHOPAEDIC [place] [address] Status post total replacement of right hip; [...] 9:15 AM EDT Office Visit Dermatology at [facility] [address] [place] [address] Dawson Broderick MD [facility] [place] [place] [address] 07/23/2024 9:30 AM EDT Office Visit Dermatology at [facility] [address] [place] [address] Dawson Broderick MD [facility] [place] [place] [address] Scheduled Orders Name Type Priority Associated Diagnoses Orde r Schedule XR Pelvis & Lat Hip Right (Generic) Imaging Routine Status post total replacement of right hip Expected: 04/20/2016 (Approximate), Expires: 04/20/2017 documented as of this encounter Procedures Procedure Name Priority Date/Time Associated Diagnosis Comments TOTAL HIP REVISION ARTHROPLASTY, COMPLETE Routine 04/20/2016 8:46 PM EST Status post total replacement of right hip documented in this encounter Results * EKG 12 Lead (04/28/2016 1:08 PM EST) Ventricular rate 87 BPM MUSE SYSTEM Atrial Rate 87 BPM MUSE SYSTEM P-R Interval 176 ms MUSE SYSTEM QRS Duration 94 ms MUSE SYSTEM Q-T Interval 340 ms MUSE SYSTEM QTC Calculated (Bezet) 409 ms MUSE SYSTEM Calculated P Independence 51 degrees MUSE SYSTEM Calculated R Independence 43 degrees MUSE SYSTEM Calculated T Independence 11 degrees MUSE SYSTEM INTERPRETATION Normal sinus rhythm Normal ECG When compared with ECG of 11-JUL-2015 07:24, No significant change was found Confirmed by FATMATA, ??, EZEQUIEL ([id number]) on 04/28/2016 1:46:46 PM MUSE SYSTEM 04/28/2016 1:08 PM EST 04/28/2016 1:46 PM EST Walter Rae MD ECG ORDERABLES MUSE SYSTEM * APTT (04/28/2016 12:59 PM EST) PTT 27 25 - 35 sec [facility] Comment: The recommended therapeutic range for full dose, unfractionated heparin at [facility] is 80 ? 114 seconds. The use of the anti-Xa (heparin) level rather than the PTT is recommended for monitoring anticoagulation intensity in critically ill patients receiving unfractionated heparin by continuous IV infusion. Blood specimen (specimen) 04/28/2016 12:59 PM EST 04/28/2016 1:29 PM EST Narrative Resulting Agency Comment Spec In Lab Walter Rae MD HEMATOLOGY ORDERABLE S Performing Organization Address [facility] de Phone Number [facility] [place] [place] [address] * Prothrombin Time (04/28/2016 12:59 PM EST) PT 13.3 12.0 - 15.0 sec [facility] Comment: An INR <2.0 [...] clinical circumstances. INR 1.0 0.9 - 1.1 [facility] Blood specimen (specimen) 04/28/2016 12:59 PM EST 04/28/2016 1:29 PM EST Narrative Resulting Agency Comment Spec In Lab Walter Rae MD HEMATOLOGY ORDERABLE S Performing Organization Address [facility] de Phone Number [facility] [place] [address] * (ABNORMAL) Basic Metabolic Panel (non-fasting) (04/28/2016 12:59 PM EST) Glucose Lvl 115 65 - 199 mg/dL [facility] Comment:Diabetes: >=200 mg/d L plus symptoms BUN 23(H) 10 - 20 mg/dL [facility] Creatinine 1.27 0.80 - 1.50 mg/dL [facility] Comment: Please note that the pediatric reference intervals supplied above were not validated at [facility]. Results from pediatric patients should be interpreted in conjunction to the patient's age, height and muscle mass. Sodium 141 135 - 145 mmol/L [facility] Potassium 4.6 3.5 - 5.0 mmol/L [facility] Comment: Please note: ??Patients with WBC >100,000 may have falsely elevated Potassium levels. ??For accurate Potassium quantification in these patients send serum separator tube (gold top) for subsequent determinations. ??Contact the Clinical Chemistry Laboratory if there are any questions. Chloride 101 98 - 107 mmol/L [facility] CO2 26 22 - 31 mmol/L [facility] Anion Gap 14 5 - 15 mmol/L [facility] Calcium 8.9 8.5 - 10.5 mg/dL [facility] Estimated GFR 56(L) >=60 [facility] Comment: [...] the following links into your internet browser. [email or web address] Blood specimen (specimen) 04/28/2016 12:59 PM EST 04/28/2016 1:29 PM EST Narrative Resulting Agency Comment Spec In Lab Walter Rae MD CHEMISTRY ORDERABLES [facility] [place] [address] documented in this encounter Visit Diagnoses Diagnosis Status post total replacement of right hip Pain of right lower extremity documented in this encounter Care Teams Biopharmaceutical Rep Relationship Specialty Start Date End Date Phoenix Guzmán DO [address] [place] [address] [place] [address] PCP - General General Internal Medicine 02/20/15 documented as of this encounter
--- OUTSIDE RECORDS SUMMARY | 2023-10-23 09:09 | XMS_ITS | Encounter Summary ---
[place] [address] Care Team Providers Care Hadoop Software Engineer Name Role Phone DevantePhoenix orozco Primary Care Provider [phone] Reason for Referral * Consultation (Routine) - Closed Specialty Diagnoses / Procedures Referred By Omid shepherd Referred To Contact Cardiac Rehabilitation Diagnoses S/P coronary artery stent placement Avi Kilgore MD [facility] [place] [address] [place] [address] Referral ID Status Reason Start Date Expiration Date V isits Requested Visits Authorized [id number] Closed Evaluate and Treat 07/13/2015 01/09/2016 36 36 Encounter Details Date Type Department Care Team (Late st Contact Info) Description 07/13/2015 [place] [address] Vanessa Lagunas RN S/P coronary artery stent placement Social History Tobacco Use Types Packs/Day Years [...] as of this encounter Progress Notes * Vanessa Lagunas RN - 07/13/2015 2:08 PM EDT Patient is s/p PCI to LAD on 07/10/2015. Call placed to discuss referral to the outpatient cardiac rehab program at [facility]. Patient agrees with this referral. He is tentatively scheduled for bilateral TKA on 09/04/2015 and is not sure he will be able to participate in cardiac rehab r/t knee discomfort, but he is interested in learning more about the local program. Will send the referral to [facility] cardiac rehab today and ask them to contact him with more information. documented in this encounter Plan of Treatment Upcoming Encounters Date Type Department Care Team (Late st Contact Info) Description 10/31/2023 9:15 AM EDT Office Visit Dermatology at [facility] [address] [place] [address] Dawson Broderick MD [facility] DR MYKE [place] [address] 07/23/2024 9:30 AM EDT Office Visit Dermatology at [facility] [address] [place] [address] Dawson Broderick MD [facility] [address] [place] [address] Scheduled Referrals Name Type Priority Associated Diagnoses Orde r Schedule Referral to Cardiac Rehab Outpatient Referral Routine S/P coronary artery stent placement Ordered: 07/13/2015 documented as of this encounter Visit Diagnoses Diagnosis S/P coronary artery stent placement Postsurgical percutaneous transluminal coronary angioplasty status documented in this encounter Care Teams Hadoop Software Engineer Relationship Specialty Start Date End Date Phoenix Guzmán DO [address] [place] [address] [place] [address] PCP - General General Internal Medicine 02/20/15 documented as of this encounter
--- OUTSIDE RECORDS SUMMARY | 2023-10-23 09:09 | XMS_ITS | Encounter Summary ---
[place] [address] Care Team Providers Care Pipeman Name Role Phone Phoenix Guzmán DO Primary Care Provider [phone] Encounter Details Date Type Department Care Team (Late st Contact Info) Description 07/13/2015 Telephone [place] [address] Walter Rae MD [facility] [place] [address] Social History Tobacco Use Types Packs/Day Years [...] encounter Miscellaneous Notes * Telephone Encounter - Danette Bauer RN - 07/13/2015 11:04 AM EDT The pt is scheduled for a bilateral TKA with Dr Rae. The patient underwent a cardiac cath on the 09 of July , A stent was placed during the cath. Dr Koenig's office was contacted and I spoke to his nurse .The patient is to remain on Plavix for a minimal of 3 months before it can be stopped prior to knee replacement surgery . Dr Koenig will follow up in 2 months and notify the ortho staff at that time. documented in this encounter Plan of Treatment Upcoming Encounters Date Type Department Care Team (Late st Contact Info) Description 10/31/2023 9:15 AM EDT Office Visit Dermatology at [facility] [address] [place] [address] Dawson Broderick MD [facility] [place] [address] 07/23/2024 9:30 AM EDT Office Visit Dermatology at [facility] [address] [place] [address] Dawson Broderick MD [facility] [place] [address] documented as of this encounter Visit Diagnoses Not on filedocumented in this encounter Care Teams Pipeman Relationship Specialty Start Date End Date Phoenix Guzmán DO [address] [place] [address] [place] [address] PCP - General General Internal Medicine 02/20/15 documented as of this encounter
--- OUTSIDE RECORDS SUMMARY | 2023-10-23 09:09 | XMS_ITS | Encounter Summary ---
[place] [address] Care Team Providers Care Scanner Supervisor Name Role Phone Phoenix Guzmán Primary Care Provider [phone] Reason for Referral * Diagnostic Test (Routine) - Closed Specialty Diagnoses / Procedures Referred By Omid shepherd Referred To Contact Radiology Diagnoses Status post total replacement of right hip Procedures CT Hip wo Contrast Right (Generic) Jerel Quintanilla MD [facility] [place] [address] [facility] [place] [address] Referral ID Status Reason Start Date Expiration Date V isits Requested Visits Authorized [id number] Closed Specialty Service Requested 04/05/2016 06/03/2016 1 1 Reason for Visit * Diagnostic Test (Routine) - Closed Specialty Diagnoses / Procedures Referred By Omid shepherd Referred To Contact Radiology Diagnoses Status post total replacement of right hip Procedures CT Hip wo Contrast Right (Generic) Jerel Quintanilla MD [facility] [place] [address] [facility] [place] [address] Referral ID Status Reason Start Date Expiration Date V isits Requested Visits Authorized [id number] Closed Specialty Service Requested 04/05/2016 06/03/2016 1 1 Encounter Details Date Type Department Care Team (Latest Contact Info) Description 04/12/2016 9:32 AM EST - 04/12/2016 9:[address] [facility] Encounter CT Scan at [facility] [place] [address] Jerel Quintanilla MD [facility] [place] [address] Status post total replacement of right hip [...] 9:15 AM EDT Office Visit Dermatology at [facility] [address] [place] [address] Dawson Broderick MD [facility] [address] [place] [address] 07/23/2024 9:30 AM EDT Office Visit Dermatology at [facility] [address] [place] [address] Dawson Broderick MD [facility] [address] [place] [address] documented as of this encounter Procedures Procedure Name Priority Date/Time Associated Diagnosis Comments CT HIP WO CONTRAST RIGHT Routine 04/12/2016 9:47 AM EST Status post total replacement of right hip documented in this encounter Results * CT [...] tothe proximal femoral component. Jerel Quintanilla MD [facility] CT ORDERABLES documented in this encounter Visit Diagnoses Diagnosis Status post total replacement of right hip documented in this encounter Care Teams Scanner Supervisor Relationship Specialty Start Date End Date Phoenix Guzmán DO [address] [place] [address] [place] [phone] PCP - General General Internal Medicine 02/20/15 documented as of this encounter
--- OUTSIDE RECORDS SUMMARY | 2023-10-23 09:09 | XMS_ITS | Encounter Summary ---
Author Organization [facility] Address [facility] [place] [address] Care Team Providers Care Head Of Stock Name Role Phone Phoenix Guzmán Primary Care Provider [phone] Encounter Details Date Type Department Care Team (Latest Contact Info) Description 04/12/2016 9:49 AM EST - 04/12/2016 11:59 PM [facility] En[facility] XRay at [address] [place] [address] Brody Norton MD [facility] [place] [address] Chronic pain of right knee Discharge Disposition: Home Social History Tobacco Use [...] Dermatology at [facility] [address] [place] [address] Dawson Broderick MD [facility] DR MYKE STE[place] [address] 07/23/2024 9:30 AM EDT Office Visit Dermatology at [facility] [address] [place] [address] Dawson Broderick MD [facility] [place] [address] documented as of this encounter Procedures Procedure Name Priority Date/Time Associated Diagnosis Comments XR KNEE AP & LAT RIGHT Routine 04/12/2016 10:32 AM EST Chronic pain of right knee documented in this encounter Results * XR Knee 1-2 Views Right (Generic) (04/12/2016 10:32 AM EST) Anatomical Region Laterality Modality Knee Right Digital Radiogra phy Impressions 04/12/2016 11:13 AM EST Severe osteoarthritic changes as above. Narrative 04/12/2016 11:13 AM EST EXAMINATION: XR KNEE 1-2 VIEWS RIGHT (GENERIC) CLINICAL HISTORY: Chronic pain of right knee TECHNIQUE: 2 views of the right knee COMPARISON: 10/2015 AP view FINDINGS: There is marked loss of joint space compartments with flattening of the femoral condyles, marginal osteophyte formation. No effusion. No significant change from prior exam Procedure Note Princess Hill MD - 04/12/2016 EXAMINATION: XR KNEE 1-2 VIEWS RIGHT (GENERIC) CLINICAL HISTORY: Chronic pain of right knee TECHNIQUE: 2 views of the right knee COMPARISON: 10/2015 AP view FINDINGS: There is marked loss of joint space compartments with flattening of thefemoral condyles, marginal osteophyte formation. No effusion. No significantchange from prior exam IMPRESSION Severe osteoarthritic changes as above. Brody Norton MD IMG DX ORDERABLES documented in this encounter Visit Diagnoses Diagnosis Chronic pain of right knee documented in this encounter Care Teams Head Of Stock Relationship Specialty Start Date End Date Phoenix Guzmán DO [address] [place] [address] [place] [address] PCP - General General Internal Medicine 02/20/15 documented as of this encounter
--- OUTSIDE RECORDS SUMMARY | 2023-10-23 09:09 | XMS_ITS | Encounter Summary ---
[place] [address] Care Team Providers Care Hardware Design Engineer Name Role Phone Phoenix Guzmán DO Primary Care Provider [phone] Reason for Visit * Reason Comments Knee Pain bilat Encounter Details Date Type Department Care Team (Latest Contact Info) Description 08/19/2015 2:00 PM EDT Office [place] [address] Bryant Miranda MD [facility] [place] [address] Preop examination; Primary osteoarthritis of left knee; Atherosclerosis of hughes coronary artery of hughes heart without angina pectoris; Hyperlipidemia, unspecified hyperlipidemia type Social History Tobacco Use Types Packs/Day [...] Sign Reading Time Taken Comments Blood Pressure 113/75 08/19/2015 1:44 PM EDT Pulse 104 08/19/2015 1:44 PM EDT Temperature 36.4 ??C (97.6 ??F) 08/19/2015 1:44 PM ED T Respiratory Rate - - Oxygen Saturation - - Inhaled Oxygen Concentration - - Weight 127.9 kg (282 lb) 08/19/2015 1:44 PM EDT Height 182.9 cm (6') 08/19/2015 1:44 PM EDT Body Mass Index 38.25 08/19/2015 1:44 PM EDT documented in this encounter H&P Notes * Bryant Miranda MD - 08/19/2015 2:52 PM EDT Images from the original note were not included. CC: Gunnar Morin is a 70 y.o. male with the following problems and medications that is being seen in the clinic for consultation at the request of his surgeon Dr. Walter Rae for preoperative riskstratification and management recommendations in anticipation of left total knee arthroplasty for symptomatic OA. Of note while the initial plan was for bilateral simultaneous TKA, the recent diagnosis of CAD per preoperative evaluation and also the subsequent BMS x2 to LAD have resulted in this visit with me and subsequent decision per patient with his present to have staged rather than simultaneous knee replacements. HPI - Pain - Location - left more than other knee Quality - aching, Onset - gradual, Duration - several months, Intensity - moderate to severe, Aggravating factors - standing, walking, stepping, bending, Alleviating factors - rest, Associated - has other knee pain also. Patient Active Problem List Diagnosis Code ??? S/P total hip arthroplasty Z96.649 ??? Osteoarthritis of both knees M17.0 ??? Bilateral knee pain M25.561, M25.562 ??? Arthritis of knee M19.90 ??? CAD (coronary artery disease) I25.10 Current Outpatient Prescriptions Medication Sig Dispense Refill ??? carvedilol (COREG) 6.25 mg Tablet ??? clopidogrel (PLAVIX) 75 mg Tablet Take 1 tablet by mouth daily. 30 tablet 1 ??? ezetimibe (ZETIA) 10 mg Tablet Take 1 tablet by mouth daily. 30 tablet 12 ??? nitroGLYcerin (NITROSTAT) 0.4 mg Tablet, Sublingual Place 1 tablet under the tongue every 5 minutes as needed for Chest pain. 90 tablet 12 ??? clindamycin (CLEOCIN) 150 mg Capsule See Admin Instructions. TAKE 2 CAPSULES ONE HOUR BEFORE DENTAL PROCEDURES ??? aspirin 81 mg EC tablet Take 81 mg by mouth daily. ??? pravastatin (PRAVACHOL) 10 mg Tablet Take 1 tablet by mouth nightly. 30 tablet 0 No current facility-administered medications for this visit. Social History Occupational History ??? Not on file. Social History Main Topics ??? Smoking status: Former Smoker Quit date: 01/11/2001 ??? Smokeless tobacco: Never Used ??? Alcohol use: Yes Comment: 6 pack a week previously - stopped in April in prep for surgery ??? Drug use: No ??? Sexual activity: [...] for frequency. Negative for dysuria and hematuria. Musculoskeletal: Positive for gait problem and joint [...] value Range last 24 hrs Temperature Temp: 36.4 ??C (97.6 ??F) Temp: [36.4 ??C (97.6 ??F)] Heart Rate Heart Rate: 104 Heart Rate: [104] Blood Pressure BP: 113/75 BP: (113)/(75) Respiratory Rate Resp: -- SpO2 SpO2: -- Body mass index is 38.25 kg/(m^2). Height: 182.9 cm (6') Physical Exam [...] is no rebound and no guarding. Musculoskeletal: Full extension in left knee with 5/5 quad power. Neurological: He is alert and oriented to person, place, and time. Skin: Skin is warm and dry. He is not diaphoretic. Psychiatric: He has a normal mood and affect. His behavior is normal. Judgment and thought content normal. Lab Results Component Value Date WBC 6.2 07/11/2015 RBC 4.44 (L) 07/11/2015 HGB 14.2 07/11/2015 HCT 42.3 07/11/2015 MCV 95.3 (H) 07/11/2015 MCH 32.0 07/11/2015 MCHC 33.6 07/11/2015 PLATELET 144 (L) 07/11/2015 RDWCV 12.5 07/11/2015 Lab Results Component Value Date NA 141 07/11/2015 K 4.2 07/11/2015 CL 104 07/11/2015 CO2 25 07/11/2015 BUN 14 07/11/2015 CREATININE 1.09 07/11/2015 GLUCOSE 96 07/10/2015 CALCIUM 8.6 07/11/2015 Lab Results Component Value Date AST 16 07/10/2015 ALT 24 07/10/2015 ALKPHOS 41 07/10/2015 BILITOT 0.3 07/10/2015 BILIDIR 0.1 07/10/2015 EKG: normal EKG, normal sinus rhythm. - July 11 2015 A/P 1. Preop examination 2. Primary osteoarthritis of left knee 3. Atherosclerosis of hughes coronary artery of hughes heart without angina pectoris 4. Hyperlipidemia, unspecified hyperlipidemia type He had incidental WMA on Echo preoperatively and that led to MPI which showed reversible and fixed deficits. He was active and asymptomatic. He then underwent coronary angio and then BMS x2 were placed in his LAD. He was started on Carvedilol per his plastic tile layer and he started that this morning. He is taking Zetia and that was too expensive and his plastic tile layer has informed him that this may be stopped. He was open to resumption of pravastatin which he tolerated at low dose in past while otherstatin caused severe myalgias. He has tolerated ASA and Plavix and knows to stop the Plavix 5 days prior to his surgery and I reiterated that he should continue his ASA through his surgery. Regards his new carvedilol, we reviewed the benefit of HR control and heart protection but also noted risk ofhypotension. He has BP monitor at home and will check his BP during this phase. He is all right with staging his knee replacement but would like to proceed with the left knee replacement at the priorplanned date in September. Major Risk Factor per the Revised Cardiac Risk Index (Bold if present) - There is a history of CAD,no history of CHF, CVA or TIA, DM2 on insulin, or a Creatinine >2. Of note the RCRI study did NOT include patients who had CABG or PTCA but without premorbid ACS or NTG use or Q waves on EKG as a CAD equivalent. Risk diagnosis for MACE (major adverse cardiovascular event = Myocardial infarction, pulmonary edema, ventricular fibrillation, primary cardiac arrest, or complete heart block.) :Elevated >1% . The patient describes a functional status of equal to 4METs and more (chops his wood and stacks it without any CP or SOB) and based on the ACC/AHA 2014 guideline no further cardiovascular testing is indicated. ARISCAT/CANET Score - estimates the risk of postoperative pulmonary complications as being low ~3.5%. STOP BANG Score - high risk for YESICA. Per the ACS NSQIP calculator I estimated the following. 25 of this 40 minute encounter was spent incounseling him. I reviewed with him that a minimum of 30 days of Plavix is required after BMS placement. He noted that he will be close to 60 days of therapy at the time of his surgery and understoodthe need for stopping it prior to surgery to decrease blood loss and also allow the option of spinal. I also reviewed with him that while he did not have any premorbid symptoms of CAD, he did have CAD that warranted the intervention and perhaps helped avoid a potentially dangerous postoperative DC.Risk of blockage to his stents was also discussed in the setting of postoperative increase in clotting risk as well as off the Plavix. Need to continue aspirin was reviewed despite a slight increase in blood loss. As a result of this he concurred that a single knee replacement was of lesser risk than a bilateral procedure at same time. He understands the risk is increased due to his elevated weight and will work to reduce this risk in recovery period. He anticipates improved exercise tolerance with the recovery and decreased pain. PLAN Reconsider current plan for simultaneous bilateral TKA and change to left TKA. Please schedule Right TKA within appropriate time ie 6-8 weeks after his first. Continue ASA, statin. Continue carvedilol as permitted by his BP - he may need to lower the dose based on his BP and I asked him to coordinate this with his BP checks and with his prescribing provider and then update us during day of surgery med reconciliation. Stop Plavix 5 days prior to surgery. His surgery is scheduled for September 06 and he would have ~55 days of Plavix therapy after his BMS. CC: Avi Boyd. documented in this encounter Plan of Treatment Upcoming Encounters Date Type Department Care Team (Late st Contact Info) Description 10/31/2023 9:15 AM EDT Office Visit Dermatology at [facility] [address] [place] [address] Dawson Broderick MD [facility] [address] [place] [address] 07/23/2024 9:30 AM EDT Office Visit Dermatology at [facility] [address] [place] [address] Dawson Broderick MD [facility] DR [address] [place] [address] documented as of this encounter Visit Diagnoses Diagnosis Preop examination Preoperative examination, unspecified Primary osteoarthritis of left knee Primary localized osteoarthrosis, lower leg Atherosclerosis of hughes coronary artery of hughes heart without angina pectoris Hyperlipidemia, unspecified hyperlipidemia type documented in this encounter Care Teams Hardware Design Engineer Relationship Specialty Start Date End Date Phoenix Guzmán DO [address] [place] [address] [place] [address] PCP - General General Internal Medicine 02/20/15 documented as of this encounter
--- OUTSIDE RECORDS SUMMARY | 2023-10-23 09:09 | XMS_ITS | Encounter Summary ---
[place] [address] Care Team Providers Care Day [employer] Charter Bus Driver Name Role Phone Phoenix Guzmán DO Primary Care Provider [phone] Encounter Details Date Type Department Care Team (Late st Contact Info) Description 08/13/2015 Telephone [place] [address] Walter Rae MD [facility] [place] [address] Social History Tobacco Use Types Packs/Day Years [...] Telephone Encounter - Ruben Sands RN - 08/13/2015 11:27 AM EDT Call placed to Dr Koenig's office to see if patient is cleared for surgery on 09/07/15. He has an appointment with them on 08/25/15 and they will call and let us know at that time. documented in this encounter Plan of Treatment Upcoming Encounters Date Type Department Care Team (Late st Contact Info) Description 10/31/2023 9:15 AM EDT Office Visit Dermatology at [facility] [address] [place] [address] Dawson Broderick MD [facility] [address] [place] [address] 07/23/2024 9:30 AM EDT Office Visit Dermatology at [facility] [address] [place] [address] Dawson Broderick MD [facility] DR [address] [place] [address] documented as of this encounter Visit Diagnoses Not on filedocumented in this encounter Care Teams Day [employer] Bus Driver Relationship Specialty Start Date End Date Phoenix Guzmán DO [address] [place] [address] [place] [address] PCP - General General Internal Medicine 02/20/15 documented as of this encounter
--- OUTSIDE RECORDS SUMMARY | 2023-10-23 09:09 | XMS_ITS | Encounter Summary ---
Author Organization [facility], Located Within [facility] [place] [address] Care Team Providers Care Side Door Man Name Role Phone DevantePhoenix orozco Susan MCDOWELL Primary Care Provider [phone] Reason for Visit * Auth/Cert Specialty Diagnoses / Procedures Referred By Omid shepherd Referred To Contact Diagnoses Arthritis of knee B/L Knee OA n/a Procedures PRO TOTAL KNEE ARTHROPLASTY @TOTAL KNEE ARTHROPLASTY MODIFIER: ATTUNE STABILIZED FIXED PLATFORM DEPUY Referral ID Status Reason Start Date Expiration Date Visits Re quested Visits Authorized [id number] 1 1 Encounter Details Date Type Department Care Team (Late st Contact Info) Description 09/07/2015 11:38 AM EDT Anesthesia [place] [address] Lg Warren MD [facility] [address] Alba Siegel MD [facility] [place] [address] Anesthesia Record Procedure Summary Procedure Name Responsible Anesthesiologist Anesthesia Start Time Anesthesia Stop Time TOTAL KNEE ARTHROPLASTY (WRVU 19.6) (Left: Knee) Lg Warren MD 09/07/15 1138 09/07/15 1429 Events Date Time Event Comment 09/07/2015 1122 1138 AN Verify 1138 Start 1138 An Start Data 1212 Quick Note Unable to get s natalya after 15 attempts at three different levels. Attempted with 3.5in 25gauge Geovani, 3.5in 22 gauge Quinke, and 7in 22gauge Geovani. Decision to proceed with a GA. 1214 An Induction 1220 An Intubation 1221 Anesthesia Ready 1254 Break/Relief In TOI GIRON MD 1351 An Tourn Deflated 1hour and 22min TQ time 1419 Extubation/LMA Out 1429 an stop data 1429 Recovery or ICU Handoff Charlene ent care was transferred to the destination unit staff after review of the patient's medical history, current anesthetic/surgical status and plan, according to the Provider Handoff Checklist. 1429 Stop Meds Name Total Propofol 300 mg midazolam (PF) (VERSED) 1 mg/mL injectio n 1 mg 2 mg Rocuronium 50 mg PHENYLephrine 160 mcg ceFAZolin (ANCEF) 3g in dextrose 5% 100 mL 2 g Ketamine INF 53.46 mg HYDROmorphone 2 mg Ketamine 10 mg/mL 50 mg lactated ringers infusion 1,000 mL 1,000 mL * Agents Name O2 Air Sevoflurane (et) * Blood No blood administrations on file. Lines, Drains, and Airways Type Details Placement Removal Incision 09/07/15; knee; 11/02 12/23 (LDA cleanup utility RA#[id number]); 1715 (LDA cleanup utility RA#[id number]) 09/07/15 0000 by Mariam Vaz RN 11/29/21 1715 by Marion Vásquez (RETIRED) Peripheral IV Line - Single Lumen 09/07/15; 1031; median cubital vein left (antecubital fossa); 18 gauge, 1 in length; distraction, intradermal injection; 09/08/15; 1248 09/07/15 1031 by Tung Macias RN 09/08/15 1248 by Avis Holley RN Arterial Line 09/07/15; 1138; radi al artery; 20 gauge; Warren; Sterile Prep, Sterile Gloves; 09/08/15; 0924 09/07/15 1138 by Lg Warren MD 09/08/15 0924 by Avis Holley RN ETT Mask Ventilation: Ea sy (1); ETT Type: Cuffed; ETT Size: 7.5 mm; Mac Blade: 4; Notes: Asleep, Pre-O2, Cricoid Pressure, Stylette; Attempts: 2; Laryngoscopy Grade: 2; ETT Placement Verified By: Auscultation, Capnometry; Secured at Teeth: 23 cm; Inserted by: Kelvin; Removal Date: 09/07/15; Removal Time: 14109/07/15 1220 by Lg Warren MD 09/07/15 1419 by Lg Warren MD documented in this encounter Social History Tobacco [...] Postprocedure Evaluation - Lg Warren MD - 09/07/2015 2:31 PM EDT [facility] [place] Department of Anesthesiology Post-procedure Note Patient: Gunnar Morin Procedure Summary Date Anesthesia Start Anesthesia Stop Room / Location 09/07/15 1138 1429 [facility] OR [facility] MAIN OR Procedure Diagnosis Surgeon Responsible Provider @TOTAL KNEE ARTHROPLASTY (Left Knee); MODIFIER, ATTUNE CURVED FIXED PLATFORM, DEPUY (N/A Knee) Primary osteoarthritis of both knees (B/L Knee OA) Walter Rae MD Spence, Brian C, MD All Anesthesia Providers: Anesthesiologist: Lg Warren MD Ruffling Hemmer Automatic: Toby Quarles MD Last (1hr) Vitals: BP Temp Pulse Resp SpO2 Patient Location: PACU/[facility] Level of Consciousness: Awake and Alert Pain Management: Satisfactory Analgesia PONV: None Cardiovascular Status: At Baseline Respiratory Status: At Baseline Postoperative Fluid Status: Intravascular EUvolemia Possible Anesthetic Complications: NONE apparent at time of evaluation Final Primary Anesthesia Type: General The Primary Anesthetic Type Changed from the Original (PreOp) Anesthesia Plan: Unsuccessful Regional Block (Technical or Local Anesthetic Failure) Comments: I feel weird, discussed inability to place spinal with patient. Questions were elicited and answered. * Anesthesia Procedure Notes - Alba Siegel - 09/07/2015 11:07 AM EDT Associated Order(s): ANESTHESIA BLOCK Procedure: Anesthesia Block Block: Post-op Pain Control, adductor canal block Patient Location: Block Room Indication/Prep Prep: patient draped, chlorhexidine, mask, cap, sterile gloves, hand hygeine Laterality: left Skin Medication lidocaine 1% 3 ml Injection Information Ultrasound Guidance: live and in-plane Ultrasound guidance was used to identify the targeted neuronal structure. Ultrasound was also used to identify needle positon and to identify surrounding tissue (bone, muscle, and blood vessels) to prevent inadvertent intraneural or intravascular needle placement and injection. The spread of local anesthetic was confirmed with live ultrasound imaging. Injection technique:single-shot Needle Length: 10 cm Gauge: 21 Needle Type: [id number] Medication injection made incrementally with aspirations. Nerve infiltration solution through a needle Ropivicaine 0.5% 30 mL Resident: isai Fellow: Attending Physician: quan ~~~~~~~~~~~~~~~~~~~~~~~~~~~~~~~~~~~~~~~~~~~~~~~~~~~~~~~~~~~~ * Anesthesia Preprocedure Evaluation - Lg Warren MD - 09/04/2015 3:33 PM EDT Pre-Anesthesia Evaluation for: Gunnar Morin a 70 y.o. male. Procedure(s): @TOTAL KNEE ARTHROPLASTY MODIFIER, ATTUNE CURVED FIXED PLATFORM, DEPUY Patient Active Problem List Diagnosis ??? CAD (coronary artery disease) ??? Arthritis of knee ??? S/P total hip arthroplasty ??? Osteoarthritis of both knees ??? Bilateral knee pain No past medical history on file. No past surgical history on file. History Substance Use Topics ??? Smoking status: Former Smoker Quit date: 01/11/2001 ??? Smokeless tobacco: Never Used ??? Alcohol use: 1.8 oz/week 1 Glasses of wine, 1 Cans of beer, 1 Shots of liquor per week History Drug Use No Allergies Allergen Reactions ??? Amoxicillin Trihydrate Hives Medications: MAR and/or home medications have been reviewed. Physical Exam: There were no vitals filed for this visit. There is no height or weight on file to calculate BMI. Airway Assessment: Mallampati: II TM distance: >3 FB Neck ROM: full Cardiovascular Assessment: Rhythm: regular Pulmonary Assessment: breath sounds clear to auscultation Dental Assessment: - normal exam Misc Assessment: IV access: Peripheral line Anesthesia Plan: ASA 2 spinal, with a(n) intravenous induction 70 yo male with PMH significant for CAD (discovered on pre-op eval, now s/p BMS x2 to LAD, on plavix), HTN, presents for left TKA. Denies recent URI, denies GERD, denies CP/SOB, denies YESICA (but does snore), denies liver kidney or thyroid disease, denies history of stroke, reports good functional tolerance (able to ambulate 2 FOS without problems), and is appropriately NPO. Has undergone multiple spinals in the past, all have worked well. Last dose of Plavix MondayAugust 29. Plan spinal with standard ASA monitors and adequate IV acces and preop adductor canal block. GA backup. Plan for and risks of anesthesia discussed in detail with the pt, all questions answered, consent obtained. Region - Other Informed Consent: Anesthetic plan and risks discussed with patient and spouse. Use of blood products discussed with patient and spouse who consented to blood products. Plan discussed with attending. PAT Staff Note documented in this encounter Miscellaneous Notes * Addendum Note - Torito Morrow MD - 09/07/2015 3:08 PM EDT Addendum created 09/07/15 1508 by oTrito Morrow MD Anesthesia Attestations filed, Cosign clinical note documented in this encounter Plan of Treatment Upcoming Encounters Date Type Department Care Team (Late st Contact Info) Description 10/31/2023 9:15 AM EDT Office Visit Dermatology at [facility] [address] [place] [address] Dawson Broderick MD [facility] [place] [address] 07/23/2024 9:30 AM EDT Office Visit Dermatology at [facility] [address] [place] [address] Dawson Broderick MD [facility] [place] [address] documented as of this encounter Procedures Procedure Name Priority Date/Time Associated Diagnosis Comments ANESTHESIA BLOCK Routine 09/07/2015 11:0 8 AM EDT Procedure Note - Alba Siegel - 09/07/2015 11:07 AM EDTThis note is in progress. Procedure: Anesthesia Block Block: Post-op Pain Control, adductor canal block Patient Location: Block Room Indication/Prep Prep: patient draped, chlorhexidine, mask, cap, sterile gloves, handhygeine Laterality: left Skin Medication lidocaine 1% 3 ml Injection Information Ultrasound Guidance: live and in-plane Ultrasound guidance was used to identify the targeted neuronalstructure. Ultrasound was also used to identify needle positon and toidentify surrounding tissue (bone, muscle, and blood vessels) to preventinadvertent intraneural or intravascular needle placement and injection.The spread of local anesthetic was confirmed with live ultrasoundimaging. Injection technique:single-shot Needle Length: 10 cm Gauge: 21 Needle Type: [id number] Medication injection made incrementally with aspirations. Nerve infiltration solution through a needle Ropivicaine 0.5% 30 mL Resident: isai Fellow: Attending Physician: quan ~~~~~~~~~~~~~~~~~~~~~~~~~~~~~~~~~~~~~~~~~~~~~~~~~~~~~~~~~~~~ documented in this encounter Visit Diagnoses Not on filedocumented in this encounter Administered Medications Inactive Administered Medications - up to 3 most recent administrations Medication Order MAR Action Action Date Dose Rate Site ceFAZolin (ANCEF) 3g in dextrose 5% 100 mL 3 g, Intravenous, EVERY 3 HOURS, 1 dose, First dose on Mon09/07/15 at 1015, Administer over 30 Minutes, Redose after 3 hours., Intra-Operative (Intra-Procedure), Indication for (Active or Suspected): Prophylaxis Given 09/07/2015 12:21 PM EDT 2 g HYDROmorphone (DILAUDID) injection PRN, Starting on Mon09/07/15 at 1238, Until Mon09/07/15 at 1429, Pain, Anesthesia Intra-op, Routine Given 09/07/2015 1:40 PM EDT 0.4 mg Given 09/07/2015 12:50 PM EDT 0.6 mg Given 09/07/2015 12:38 PM EDT 1 mg ketamine (KETALAR) 10 mg/mL bolus injection (Anesthesia) PRN, Starting on Mon09/07/15 at 1358, Until Mon09/07/15 at 1429, Anesthesia Intra-op Given 09/07/2015 1:58 PM EDT 50 mg ketamine (KETALAR) 10 mg/mL injection CONTINUOUS PRN, Starting on Mon09/07/15 at 1221, Until Mon09/07/15 at 1429, Anesthesia Intra-op, Routine Rate/Dose Change 09/07/2015 12:52 PM EDT 5 mcg/kg/min 3.8 mL/hr New Bag 09/07/2015 12:21 PM EDT 3 mcg/kg/min 2.3 mL/hr lactated ringers infusion 1,000 mL 1,000 mL, at 100 mL/hr, Intravenous, CONTINUOUS, Starting on Mon09/07/15 at 1015, Until Mon09/07/15 at 1713, Day of Surgery (Day of Procedure) New Bag 09/07/2015 2:08 PM EDT New Bag 09/07/2015 11:38 AM EDT New Bag 09/07/2015 10:15 AM EDT 1,000 mLs 100 mL/hr midazolam (PF) [...] Given 09/07/2015 11:00 AM EDT 1 mg PHENYLephrine HCl in NS (PF) (FIOR-SYNEPHRINE) 0.8 mg/10 mL (80 mcg/mL) multi-dose injection Syrg PRN, Starting on Mon09/07/15 at 1352, Until Mon09/07/15 at 1429, Anesthesia Intra-op, Routine Given 09/07/2015 1:52 PM EDT 160 mcg propofol (DIPRIVAN) 10 mg/mL bolus injection (Anesthesia) Intravenous, PRN, Starting on Mon09/07/15 at 1214, Until Mon09/07/15 at 1429, Anesthesia Intra-op Given 09/07/2015 12:14 PM EDT 300 mg rocuronium (ZEMURON) multi-dose injection PRN, Starting on Mon09/07/15 at 1215, Until Mon09/07/15 at 1429, Anesthesia Intra-op, Routine Given 09/07/2015 12:15 PM EDT 50 mg documented in this encounter Care Teams Side Door Man Relationship Specialty Start Date End Date Phoenix Guzmán DO [address] [place] [address] [place] [phone] PCP - General General Internal Medicine 02/20/15 documented as of this encounter
--- OUTSIDE RECORDS SUMMARY | 2023-10-23 09:09 | XMS_ITS | Encounter Summary ---
[place] [address] Care Team Providers Care Fire Watcher Name Role Phone Phoenix Guzmán DO Primary Care Provider [phone] Encounter Details Date Type Department Care Team (Late st Contact Info) Description 04/28/2016 1:00 PM EST [place] [id number] Social History Tobacco Use Types Packs/Day Years [...] at [facility] [address] [place] [phone] Dawson Broderick MD [facility] [address] [place] [address] 07/23/2024 9:30 AM EDT Office Visit Dermatology at [facility] [address] [place] [address] Dawson Broderick MD [facility] [address] [place] [address] documented as of this encounter Visit Diagnoses Not on filedocumented in this encounter Care Teams Fire Watcher Relationship Specialty Start Date End Date Phoenix Guzmán DO [address] [place] [address] [place] [phone] PCP - General General Internal Medicine 02/20/15 documented as of this encounter
--- OUTSIDE RECORDS SUMMARY | 2023-10-23 09:09 | XMS_ITS | Encounter Summary ---
Author Organization [facility] Address [facility] [place] [address] Care Team Providers Care Clinical Nursing Manager Name Role Phone Phoenix Guzmán DO Primary Care Provider [phone] Encounter Details Date Type Department Care Team (Latest Contact Info) Description 04/12/2016 9:48 AM EST Hospital Encounter XRay at [address] [place] [address] Brody Norton MD [facility] [place] [address] Status post right hip replacement Discharge Disposition: [...] at [facility] [address] [place] [address] Dawson Broderick MD [facility] [place] [address] 07/23/2024 9:30 AM EDT Office Visit Dermatology [facility] [address] [place] [address] Dawson Broderick MD [facility] [place] [address] documented as of this encounter Procedures Procedure Name Priority Date/Time Associated Diagnosis Comments XR PELVIS AND HIP 2 VIEWS RIGHT Routine 04/12/2016 10:32 AM EST Status post right hip replacement documented in this encounter Results * XR Pelvis w AP & Lat Hip Right (04/12/2016 10:32 AM EST) Anatomical Region Laterality Modality Pelvis, Hip Right Digital Radiogra phy Impressions 04/12/2016 11:12 AM EST Periprosthetic lucencies stable Narrative 04/12/2016 11:12 AM EST EXAMINATION: XR PELVIS W AP AND LAT HIP RIGHT CLINICAL HISTORY: Status post right hip replacement TECHNIQUE: 2 views of the right hip COMPARISON: 04/2015 FINDINGS: Patient is status post total right hip arthroplasty with no change in appearance of the prosthesis nor of the periprosthetic bone. Specifically the periprosthetic lucencies adjacent to the proximal aspect of the femoral component. Procedure Note Princess Hill MD - 04/12/2016 EXAMINATION: XR PELVIS W AP AND LAT HIP RIGHT CLINICAL HISTORY: Status post right hip replacement TECHNIQUE: 2 views of the right hip COMPARISON: 04/2015 FINDINGS: Patient is status post total right hip arthroplasty with no change inappearance of the prosthesis nor of the periprosthetic bone. Specifically the periprosthetic lucencies adjacent to the proximal aspect of the femoral component. IMPRESSION Periprosthetic lucencies stable Brody Norton MD IMG DX ORDERABLES documented in this encounter Visit Diagnoses Diagnosis Status post right hip replacement Hip joint replacement by other means documented in this encounter Care Teams Clinical Nursing Manager Relationship Specialty Start Date End Date Phoenix Guzmán DO [address] [place] [address] [place] [address] PCP - General General Internal Medicine 02/20/15 documented as of this encounter
--- OUTSIDE RECORDS SUMMARY | 2023-10-23 09:09 | XMS_ITS | Encounter Summary ---
Author [place] [address] Care Team Providers Care Insurance Account Assistant Name Role Phone Phoenix Guzmán Primary Care Provider [phone] Encounter Details Date Type Department Care Team (Latest Contact Info) Description 04/28/2016 1:00 PM EST Clinical [place] [address] Status post total replacement of right hip; [...] Taken Comments Blood Pressure - - Pulse 98 04/28/2016 12:15 PM EST Temperature - - Respiratory Rate - - Oxygen Saturation 94% 04/28/2016 12: 15 PM EST Inhaled Oxygen Concentration - - Weight 130.7 kg (288 lb 3.2 oz) 017 12:15 PM EST Height 182.9 cm (6') 04/28/2016 12:15 PM EST Body Mass Index 39.09 04/28/2016 12:15 PM EST documented in this encounter Progress Notes * Sanam Fernando RN - 04/28/2016 1:00 PM EST PAT questionnaire reviewed with patient while in Pre Admission testing. Pre- operative instruction booklet reviewed. Patient verbalizes a good understanding of all information reviewed. PLAN: Testing: Labs, T&S, EKG Special medication instructions: Aspirin per surgeon Procedure date: 05-04-16 Dr. Rae documented in this encounter Plan of Treatment Upcoming Encounters Date Type Department Care Team (Late st Contact Info) Description 10/31/2023 9:15 AM EDT Office Visit Dermatology at [facility] [address] [place] [address] Dawson Broderick MD [facility] [address] [place] [address] 07/23/2024 9:30 AM EDT Office Visit Dermatology at [facility] [address] [place] [address] Dawson Broderick MD [facility] [place] [place] [address] documented as of this encounter Procedures Procedure Name Priority Date/Time Associated Diagnosis Comments EKG 12-LEAD Routine 04/28/2016 1:08 PM EST Status post total replacement of right hip ABORH RECHECK STATUS Routine 04/28/2016 12:59 PM EST HEMOGRAM Routine 04/28/2016 12:59 PM EST Status post total replacement of right hip DIFFERENTIAL, AUTOMATED Routine 04/28/2016 12:59 PM EST Status post total replacement of right hip TYPE AND SCREEN, SDP (FUTURE SURGERY, [facility] SAME DAY PROGRAM ONLY) Routine 04/28/2016 12:59 PM EST Status post total replacement of right hip ABO/RH TYPING Routine 04/28/2016 12:59 PM EST Status post total replacement of right hip APTT Routine 04/28/2016 12:59 PM EST Pain of right lower extremity Status post total replacement of right hip PROTHROMBIN TIME Routine 04/28/2016 12:5 9 PM EST Pain of right lower extremity Status post total replacement of right hip CBC (WITH DIFF) Routine 04/28/2016 12:59 PM EST Status post total replacement of right hip ANTIBODY SCREEN Routine 04/28/2016 12:59 PM EST Status post total replacement of right hip BASIC METABOLIC PANEL (NON-FASTING) Routine 04/28/2016 12:59 PM EST Status post total replacement of right hip documented in this encounter Results * EKG 12 Lead (04/28/2016 1:08 PM EST) Ventricular rate 87 BPM MUSE SYSTEM Atrial Rate 87 BPM MUSE SYSTEM P-R Interval 176 ms MUSE SYSTEM QRS Duration 94 ms MUSE SYSTEM Q-T Interval 340 ms MUSE SYSTEM QTC Calculated (Bezet) 409 ms MUSE SYSTEM Calculated P [place] 51 degrees MUSE SYSTEM Calculated R [place] 43 degrees MUSE SYSTEM Calculated T [place] 11 degrees MUSE SYSTEM INTERPRETATION Normal sinus rhythm Normal ECG When compared with ECG of 11-JUL-2015 07:24, No significant change was found Confirmed by FATMATA, ??EZEQUIEL ARECHIGA ([id number]) on 04/28/2016 1:46:46 PM MUSE SYSTEM 04/28/2016 1:08 PM EST 04/28/2016 1:46 PM EST Walter Rae MD ECG ORDERABLES MUSE SYSTEM * ABORH Recheck Status (04/28/2016 12:59 PM EST) ABORH Type Recheck Completed [facility] Blood specimen (specimen) 04/28/2016 12:59 PM EST 04/28/2016 1:30 PM EST Narrative Resulting Agency Comment Spec In Lab Walter Rae MD BLOOD BANK LAB ORDER ADRIA Performing Organization Address City/[facility]/ZIP Co de Phone Number [facility] [place] [address] * Differential, Automated (04/28/2016 12:59 PM EST) Neutrophils % 57.1 % [facility] Neutr Abs (ANC) 2.94 1.70 - 6.10 x10(3)/[facility] Lymphocytes % 29.1 % [facility] Lymphocytes Abs 1.5 0.9 - 3.2 x10(3)/[facility] Monocytes % 9.7 % [facility] Monocyte Abs 0.5 0.3 - 0.9 x10(3)/[facility] Eosinophils % 2.9 % [facility] Eosinophils Abs 0.2 0.0 - 0.4 x10(3)/[facility] Basophils % 1.0 % [facility] Basophils Abs 0.0 0.0 - 0.1 x10(3)/[facility] Immature Gran % 0.20 % [facility] Comment: Immature granulocytes(IG's)percentage and absolute count will include metamyelocytes, myelocytes, and promyelocytes. Blood smears from CBCs yielding IG's will be scanned manually for concordance. If this scan disagrees with the automated IG or if promyelocytes are noted, a manual differential will be performed. Geovanna Gran Abs 0.01 0.00 - 0.04 x10(3)/[facility] Blood specimen (specimen) 04/28/2016 12:59 PM EST 04/28/2016 1:29 PM EST Narrative Resulting Agency Comment Spec In Lab Walter Rae MD HEMATOLOGY ORDERABLE S [facility] [place] [address] * (ABNORMAL) Hemogram (04/28/2016 12:59 PM EST) [facility] WBC 5.2 4.0 - 9.5 x10(3)/[facility] RBC 4.82 4.58 - 5.54 x10(6)/[facility] Hemoglobin 15.4 13.7 - 16.5 gm/dL [facility] Hematocrit 45.2 40.5 - 48.5 % [facility] MCV 93.8(H) 82.9 - 93.1 [facility] MCH 32.0 27.5 - 32.1 pg [facility] MCHC 34.1 32.0 - 35.7 gm/dL [facility] Platelets 258 145 - 357 x10(3)/[facility] RDWSD 45.1(H) 36.0 - 45.0 [facility] RDWCV 13.1 11.4 - 13.8 % [facility] MPV 9.8 7.6 - 12.9 [facility] nRBC % Auto 0.0 % [facility] nRBC Abs Auto 0.000 0.000 - 0.000 x10(3)/[facility] Blood specimen (specimen) 04/28/2016 12:59 PM EST 04/28/2016 1:29 PM EST Narrative Resulting Agency Comment Spec In Lab Walter Rae MD HEMATOLOGY ORDERABLE S Performing Organization Address City/[facility]/ZIP Co de Phone Number [facility] [place] [address] * Antibody screen (04/28/2016 12:59 PM EST) [facility] Ab Screen Interp Negative [facility] Expires at [id number] on: 06/12/2016 [facility] Comment: Corrected from 05/07/16 12:00 [Unknown] on 05/06/16 06:25 by Shoshana Wallace Blood specimen (specimen) 04/28/2016 12:59 PM EST 04/28/2016 1:30 PM EST Narrative Resulting Agency Comment Spec In Lab Walter Rae MD BLOOD BANK LAB ORDER ADRIA Performing Organization Address City/[facility]/ZIP Co de Phone Number [facility] [place] [address] * ABO/Rh Typing (04/28/2016 12:59 PM EST) ABORH Type A Neg [facility] Blood specimen (specimen) 04/28/2016 12:59 PM EST 04/28/2016 1:30 PM EST Narrative Resulting Agency Comment Spec In Lab Walter Rae MD BLOOD BANK LAB ORDER ADRIA Performing Organization Address [facility] de Phone Number [facility] [place] [address] * APTT (04/28/2016 12:59 PM EST) PTT 27 25 - 35 sec [facility] Comment: The recommended therapeutic range for full dose, unfractionated heparin at [facility] is 80 ? [...] MD HEMATOLOGY ORDERABLE S Performing Organization Address [facility] Co de Phone Number [facility] [place] [address] * Prothrombin Time (04/28/2016 12:59 PM EST) PT 13.3 12.0 - 15.0 sec [facility] Comment: An [...] clinical circumstances. INR 1.0 0.9 - 1.1 [facility] Blood specimen (specimen) 04/28/2016 12:59 PM EST 04/28/2016 1:29 PM EST Narrative Resulting Agency Comment Spec In Lab Walter Rae MD HEMATOLOGY ORDERABLE S [facility] [place] [address] * (ABNORMAL) Basic Metabolic Panel (non-fasting) (04/28/2016 12:59 PM EST) Glucose Lvl 115 65 - 199 mg/dL [facility] Comment:Diabetes: >=200 mg/d L plus symptoms BUN 23(H) 10 - 20 mg/dL [facility] Creatinine 1.27 0.80 - 1.50 mg/dL [facility] Comment: Please note that the pediatric reference intervals supplied above were not validated at [facility]. Results from pediatric patients should be interpreted in conjunction to the patient's age, height and muscle mass. Sodium 141 135 - 145 mmol/L [facility] Potassium 4.6 3.5 - 5.0 mmol/L [facility] Comment: Please note: ??Patients with WBC >100,000 may have falsely elevated Potassium levels. ??For accurate Potassium quantification in these patients send serum separator tube (gold top) for subsequent determinations. ??Contact the Clinical Chemistry Laboratory if there are any questions. Chloride 101 98 - 107 mmol/L [facility] CO2 26 22 - 31 mmol/L [facility] Anion Gap 14 5 - 15 mmol/L [facility] Calcium 8.9 8.5 - 10.5 mg/dL [facility] Estimated GFR 56(L) >=60 [facility] Comment: This estimated GFR (eGFR) [...] the following links into your internet browser. [email or web address] Blood specimen (specimen) 04/28/2016 12:59 PM EST 04/28/2016 1:29 PM EST Narrative Resulting Agency Comment Spec In Lab Walter Rae MD CHEMISTRY ORDERABLES [facility] [place] [id number] documented in this encounter Visit Diagnoses Diagnosis Status post total replacement of right hip Pain of right lower extremity documented in this encounter Care Teams Insurance Account Assistant Relationship Specialty Start Date End Date Phoenix Guzmán DO [address] [place] [address] [place] [address] PCP - General General Internal Medicine 02/20/15 documented as of this encounter
--- OUTSIDE RECORDS SUMMARY | 2023-10-23 09:09 | XMS_ITS | Encounter Summary ---
[place] [address] Care Team Providers Care End Finder Forming Department Name Role Phone Phoenix Guzmán DO Primary Care Provider [phone] Encounter Details Date Type Department Care Team (Late st Contact Info) Description 10/02/2015 Orders Only [place] [address] Walter Rae MD [facility] [place] [address] Social History Tobacco Use Types Packs/Day Years [...] at [facility] [address] [place] [address] Dawson Broderick MD [facility] DR MYKE [place] [address] 07/23/2024 9:30 AM EDT Office Visit Dermatology at [facility] [address] [place] [address] Dawson Broderick MD [facility] DR [address] [place] [address] documented as of this encounter Visit Diagnoses Not on filedocumented in this encounter Care Teams End Finder Forming Department Relationship Specialty Start Date End Date Phoenix Guzmán DO [address] [place] [address] [place] [address] PCP - General General Internal Medicine 02/20/15 documented as of this encounter
--- OUTSIDE RECORDS SUMMARY | 2023-10-23 09:09 | XMS_ITS | Encounter Summary ---
Author Organization [facility] [place] [address] Care Team Providers Care Business Administrator Name Role Phone Phoenix Guzmán Primary Care Provider Encounter Details Date Type Department Care Team (Late st Contact Info) Description 09/02/2015 Telephone [place] [address] Jalen-Lou Caicedo Social History Tobacco Use Types [...] * Telephone Encounter - Lou Rao - 09/02/2015 11:13 AM EDT Spoke with Gunnar about aftercare and d/c plans cc LTKA with Dr. Rae on 09/07/15. He is a pleasant man and is looking forward to this surgery. He reports ambulates independently with no assistive device. When he is sitting or laying down he is no pain. When he moves around his pain is in between 6-8. His primary caregiver is his , Sussy. Sussy has had both of her knees replaced. He has Medicare [place] and [employer]. He has no cc about his health insurance coverage. He has prescription coverage through [employer] [place] and has no cc about affording his prescription co-pays. DME: He has a 2 FWW, a walker with handle brakes and seat, crutches, canes, and high rise toilet. [facility]NA: [facility] [address] [place] [address] SNF: [facility] OP PT: [facility] [address] [place] [address] Pt does not want a referral. He is able to set it up himself and will be less expensive than with an MD referral. He was encouraged to call if needed. His PCP is aware of surgery and surgery date. He will be transported to and from surgery by Sussy, He has an ADV DIR. I encouraged him to call with any further questions. documented in this encounter Plan of Treatment Upcoming Encounters Date Type Department Care Team (Late st Contact Info) Description 10/31/2023 9:15 AM EDT Office Visit Dermatology at [facility] [address] [place] [address] Dawson Broderick MD [facility] [place] [address] 07/23/2024 9:30 AM EDT Office Visit Dermatology at [facility] [address] [place] [address] Dawson Broderick MD [facility] [place] [address] documented as of this encounter Visit Diagnoses Not on filedocumented in this encounter Care Teams Business Administrator Relationship Specialty Start Date End Date Phoenix Guzmán DO [address] [place] [address] [place] [phone] PCP - General General Internal Medicine 02/20/15 documented as of this encounter
--- OUTSIDE RECORDS SUMMARY | 2023-10-23 09:09 | XMS_ITS | Encounter Summary ---
[place] [address] Care Team Providers Care In Flight Crew Member Name Role Phone Phoenix Guzmán DO Primary Care Provider [phone] Encounter Details Date Type Department Care Team (Late st Contact Info) Description 09/17/2015 Orders Only [place] [address] Walter Rae MD [facility] [place] [address] Social History Tobacco Use Types Packs/Day Years [...] [facility] [address] [place] [address] Dawson Broderick MD [facility] [address] [place] [address] 07/23/2024 9:30 AM EDT Office Visit Dermatology at [facility] [address] [place] [address] Dawson Broderick MD [facility] [address] [place] [address] documented as of this encounter Visit Diagnoses Not on filedocumented in this encounter Care Teams In Flight Crew Member Relationship Specialty Start Date End Date Phoenix Guzmán DO [address] [place] [address] [place] [address] PCP - General General Internal Medicine 02/20/15 documented as of this encounter
--- OUTSIDE RECORDS SUMMARY | 2023-10-23 09:09 | XMS_ITS | Encounter Summary ---
[place] [address] Care Team Providers Care Room Service Manager Name Role Phone Phoenix Guzmán Primary Care Provider [phone] Reason for Visit * Reason Onset Date Comments Pre Procedure Call 08/24/2015 Encounter Details Date Type Department Care Team (Late st Contact Info) Description 08/24/2015 Telephone [place] [address] [facility] DR ORTHOPA[place] [address] Pre Procedure Call Social History Tobacco Use [...] * Telephone Encounter - Sara Hammer - 08/25/2015 9:22 AM EDT Patients called to schedule Gunnar for a RIGHT TKA. Dr. Rae did place the orders and I have scheduled Mr. Morin for a RIGHT TKA with Dr. Rae on 10/19/15. Thank you. * Telephone Encounter - Sara Hammer - 08/24/2015 9:15 AM EDT I have sent Dr. Rae a message asking him to place an electronic booking order for the RIGHT TKA. * Telephone Encounter - Ruchi Sosa - 08/24/2015 8:47 AM EDT When is your procedure? Unsure Who is your surgeon? Butch What procedure are you having? Right TKA What is the question you would like to ask the nurse? Patient is having Left TKA on 09/07/15 and theywant to be scheduled or know if their second surgery the Right TKA is scheduled yet or if they can get it scheduled satish after the Left TKA is done. Best number to reach the patient # [phone] The nurse continuously monitors all messages and will return your call before the end of the day. The nurse may need to consult the surgeon about your question which may delay the return call by 24hrs. documented in this encounter Plan of Treatment Upcoming Encounters Date Type Department Care Team (Late st Contact Info) Description 10/31/2023 9:15 AM EDT Office Visit Dermatology at [facility] [address] [place] [address] [facility] [address] [place] [address] 07/23/2024 9:30 AM EDT Office Visit Dermatology at [facility] [address] [place] [address] [facility] [address] [place] [address] documented as of this encounter Visit Diagnoses Not on filedocumented in this encounter Care Teams Room Service Manager Relationship Specialty Start Date End Date Phoenix Guzmán DO [address] [place] [address] [place] [phone] PCP - General General Internal Medicine 02/20/15 documented as of this encounter
--- OUTSIDE RECORDS SUMMARY | 2023-10-23 09:09 | XMS_ITS | Encounter Summary ---
[place] [address] Care Team Providers Care Operator Assistant I Cementing Name Role Phone Phoenix Guzmán DO Primary Care Provider [phone] Reason for Visit * Reason Comments Medication Refill Encounter Details Date Type Department Care Team (Late st Contact Info) Description 08/10/2015 Refill Cardiology at [address] [address] Susan Arnold PA [facility] [place] [address] Medication Refill Social History Tobacco Use Types Packs/Day Years [...] AM EDT Office Visit Dermatology at [facility] [address] [place] [address] Dawson Broderick MD [facility] DR MY[address] [place] [address] 07/23/2024 9:30 AM EDT Office Visit Dermatology at [facility] [address] [place] [address] Dawson Broderick MD [facility] [address] [place] [address] documented as of this encounter Visit Diagnoses Not on filedocumented in this encounter Care Teams Operator Assistant I Cementing Relationship Specialty Start Date End Date Phoenix Guzmán DO [address] [place] [address] [place] [address] PCP - General General Internal Medicine 02/20/15 documented as of this encounter
--- OUTSIDE RECORDS SUMMARY | 2023-10-23 09:10 | XMS_ITS | Encounter Summary ---
[place] [address] Care Team Providers Care Batch And Furnace Operator Name Role Phone DevantePhoenix orozco Susan MCDOWELL Primary Care Provider [phone] Reason for Visit * Diagnostic Test (Routine) - Closed Specialty Diagnoses / Procedures Referred By Omid shepherd Referred To Contact Radiology Diagnoses Regional wall motion abnormality of heart Procedures NM myocardial perfusion scan, pharmacologic Walter Rae MD [facility] [place] [address] [place] [address] Referral ID Status Reason Start Date Expiration Date V isits Requested Visits Authorized [id number] Closed Specialty Service Requested 06/25/2015 06/24/2016 1 1 Encounter Details Date Type Department Care Team (Latest Contact Info) Description 06/29/2015 8:52 AM EDT Hospital Encounter [place] [address] Walter Rae MD [facility] [place] [address] Discharge Disposition: Home Social History Tobacco Use [...] Sig Dispensed Refills Start Date End Date clindamycin (CLEOCIN) 150 mg Capsule See Admin [...] 2 times daily. 60 tablet 09/08/2015 04/12/2016 pravastatin (PRAVACHOL) 10 mg Tablet Take 1 tablet by mouth daily. 04/06/2015 07/11/2015 aspirin 81 mg EC tablet Take 81 mg by mouth daily. 09/22/2016 documented as of this encounter Plan of Treatment Upcoming Encounters Date Type Department Care Team (Late st Contact Info) Description 10/31/2023 9:15 AM EDT Office Visit Dermatology at [facility] [address] [place] [address] Dawson Broderick MD [facility] [address] [place] [address] 07/23/2024 9:30 AM EDT Office Visit Dermatology at [facility] [address] [place] [address] Dawson Broderick MD [facility] DR [place] [address] documented as of this encounter Procedures Procedure Name Priority Date/Time Associated Diagnosis Comments NM PHARMACOLOGIC STRESS AND REST MYOCARDIAL PERFUSION Routine 06/29/2015 11:16 AM EDT Regional wall motion abnormality of heart documented in this encounter Visit Diagnoses Not on filedocumented in this encounter Administered Medications Inactive Administered Medications - up to 3 most recent administrations Medication Order MAR Action Action Date Dose Rate Site technetium (Tc-99m) sestamibi injection 40.4 mCi 40.4 mCi, Intravenous, ONCE PRN, 1 dose, Starting on Mon06/29/15 at 1014, Until Mon06/29/15 at 1015, Per Protocol, Routine Given 06/29/2015 10:15 AM EDT 40.4 mCi Left Arm documented in this encounter Care Teams Batch And Furnace Operator Relationship Specialty Start Date End Date Phoenix Guzmán DO [address] [place] [address] [place] [address] PCP - General General Internal Medicine 02/20/15 documented as of this encounter
--- OUTSIDE RECORDS SUMMARY | 2023-10-23 09:10 | XMS_ITS | Encounter Summary ---
Author Organization [facility] [place] [address] Care Team Providers Care Pipe Layer Helper Name Role Phone DevantePhoenix orozco Primary Care Provider [phone] Reason for Visit * Auth/Cert Specialty Diagnoses / Procedures Referred By Omid shehperd Referred To Contact Diagnoses CAD (coronary artery disease) ASCVD Procedures CARDIAC CATHETERIZATION Referral ID Status Reason Start Date Expiration Date Visits Re quested Visits Authorized [id number] 1 1 Encounter Details Date Type Department Care Team (Latest Contact Info) Description 07/10/2015 9:34 AM EDT - 07/11/2015 9:07 AM EDT Hospital Encounter [place] [address] Ezequiel Avilez MD [facility] [place] [address] ASCVD (arteriosclerotic cardiovascular disease) Discharge Disposition: Home Social History Tobacco Use [...] Sign Reading Time Taken Comments Blood Pressure 138/87 07/11/2015 7:51 AM EDT Pulse 82 07/11/2015 7:51 AM EDT Temperature 37.1 ??C (98.8 ??F) 07/11/2015 7:51 AM ED T Respiratory Rate 18 07/11/2015 7:51 AM EDT Oxygen Saturation 94% 07/11/2015 7:51 AM EDT Inhaled Oxygen Concentration - - Weight - - Height - - Body Mass Index - - documented in this encounter Discharge Summaries * Susan Arnold PA - 07/10/2015 1:47 PM EDT Discharge Summary Patient Name: Gunnar Morin Patient Age: 70 y.o. Language: Icelandic Race: White Ethnicity: Not nor Admit date: 07/10/2015 Discharge date and time: 07/11/2015 Attending Physician: Ezequiel Avilez MD Discharge Physician: Harris Baig MD Follow-up Recommendations for Providers: - Pt underwent placement of bare metal stents; ideally would be on clopidogrel for at least 1-3 months and lifelong daily aspirin 81mg - No BBlocker started during this admission given relative hypoTN during this admisison - ideally can be started as an outpatient Inpatient Provider Contact Information: Dr Ezequiel Avilez - Attending Dr Harris Baig - Fellow Discharge Diagnoses (Hospital Problems) and Secondary Diagnoses (Chronic Problems): Active Hospital Problems Diagnosis ??? CAD (coronary artery disease) Resolved Hospital Problems Diagnosis Date Resolved No resolved problems to display. Active Non-Hospital Problems Diagnosis ??? S/P total hip arthroplasty ??? Osteoarthritis of both knees ??? Bilateral knee pain Operations/Major Procedures: Operations: Procedure(s) with comments: CARDIAC CATHETERIZATION - Procedure: Coronary Angiography History of Presentation: Gunnar Morin is a 70 y.o. male with PMHx notable for HTN, HLD, obesity, prediabetes, and presumed CAD presents today for coronary angiography in the setting of pre-op bilateral TKAs and abnormal MIBI (inferolateral ischemia). He is now s/p PCI to the LAD (BMS x2). Hospital Course: The patient was admitted following cardiac catheterization for overnight monitoring and observation. The patient did well overnight without significant chest pain or arrhythmias on telemetry. The right radial access site was evaluated and the radial pulse was palpable with no evidence of vascular co mpromise to the right hand and normal reverse Kwaku's test by pulse oximetry. Cardiac biomarkers and a repeat ECG were reviewed. The patient ambulated with nursing without chest discomfort or exertional dyspnea. The patient met criteria for discharge, and was released home in stable condition. Functional and Cognitive Status: Alert and ambulatory Important Studies and Lab Data: Labs: Lab Results Component Value Date WBC 5.3 06/25/2015 HGB 15.2 06/25/2015 HCT 45.7 06/25/2015 PLATELET 258 06/25/2015 No results for input(s): INR in the last 168 hours. Lab Results Component Value Date NA 139 06/25/2015 K 4.6 06/25/2015 CL 101 06/25/2015 CO2 27 06/25/2015 BUN 20 06/25/2015 CREATININE 1.19 06/25/2015 Lab Results Component Value Date NA 141 07/11/2015 K 4.2 07/11/2015 CL 104 07/11/2015 CO2 25 07/11/2015 BUN 14 07/11/2015 CREATININE 1.09 07/11/2015 GLUCOSE 96 07/10/2015 GLUCFASTING 100* 07/11/2015 CALCIUM 8.6 07/11/2015 Lab Results Component Value Date WBC 6.2 07/11/2015 HGB 14.2 07/11/2015 HCT 42.3 07/11/2015 MCV 95.3* 07/11/2015 PLATELET 144* 07/11/2015 Lab Results Component Value Date CK 116 07/11/2015 TROPONINT <0.03 07/11/2015 Studies: ECG (07/11/15): Ventricular rate 76 BPM Preliminary ? Atrial Rate 76 BPM Preliminary ? P-R Interval 176 ms Preliminary ? QRS Duration 98 ms Preliminary ? Q-T Interval 378 ms Preliminary ? QTC Calculated (Bezet) 425 ms Preliminary ? Calculated P Denver 21 degrees Preliminary ? Calculated R Denver 14 degrees Preliminary ? Calculated T Denver 8 degrees Preliminary ? INTERPRETATION Preliminary ? Normal sinus rhythm Normal ECG When compared with ECG of 10-JUL-2015 13:57, (unconfirmed) No significant change was found Pending Studies and Lab Data: NONE Discharge Conditions/Prognosis: Pt fully ambulatory and stable for d/c Discharge to: Home Updated Allergies/ADRs: Allergies Allergen Reactions ??? Amoxicillin Trihydrate Hives Immunizations Given this Hospitalization: There is no immunization history on file for this patient. Discharge Medications: ??? aspirin EC tablet 81 mg ??? clopidogrel (PLAVIX) tablet 75 mg ??? nitroGLYcerin (NITROSTAT) SL tablet 0.4 mg ??? ezetimibe (ZETIA) tablet 10 mg Smoking Status at Discharge: History Smoking status ??? Former Smoker ??? Quit date: 01/11/2001 Smokeless tobacco ??? Never Used Instructions Given to Patient at Discharge: Anti-coagulation follow up: N/A Call your doctor if: Chest pain, dyspnea, pain or swelling in legs occurs. If you have non-emergent questions between now and the time of your follow up appointments: During 8am-5pm Monday through Monday call [phone] to speak with a nurse in the cardiology clinic All other times call [phone] and ask to speak to the evaluation specialist swine nutritionist. Return to work: One week Driving: No driving for 48 hours after catheterization. Follow up Appointments: PCP Call for appointment in 1-2 weeks. Four Slide Operator - You should see Dr Koenig in the next 4 weeks; please call and make an appointmentif you do not have one already Home oxygen therapy: N/A Arrangements for VNA/home care: none There are no Patient Instructions on file for this visit. General Instructions None Future Appointments Provider Department Dept Phone 08/20/2015 1:40 PM [facility] [phone] Patient instructions placeholder. Please go to Planning Management It Specialist Area 3T ([facility]). 08/20/2015 2:40 PM Walter Rae MD Orthopaedics [phone] Discharge References/Attachments None documented in this encounter Discharge Instructions * Attachments The following attachments cannot be sent through Care Everywhere. * PCI (PERCUTANEOUS CORONARY INTERVENTION) : POST-OP (ROMANIAN) documented in this encounter Medications at Time [...] 2 times daily. 60 tablet 09/08/2015 04/12/2016 clopidogrel (PLAVIX) 75 mg Tablet Take 1 tablet by mouth daily. 30 tablet 1 07/11/2015 10/08/2015 ezetimibe (ZETIA) 10 mg Tablet Take 1 tablet by mouth daily. 30 tablet 12 07/11/2015 10/08/2015 aspirin 81 mg EC tablet Take 81 mg by mouth daily. 09/22/2016 documented as of this encounter Progress Notes * Lidia Polanco RN - 07/11/2015 7:07 AM EDT Activity Summary: By discharge, patient will be able to perform self care, walk 5-7 minutes and go up and down stairs without signs or symptoms of ischemia. Date /Initials Baseline Response Symptoms/Comments 07/11/2015 Activity HR 87 101 Max HR 112 5 minute walk with 1 flight of stairs BP 138/87 139/87 O2 Sat 94% 95% Slightly out of breath on stairs ECG NSR NSR + PVC's, no chest pain * Lidia Polanco RN - 07/10/2015 6:18 PM EDT Patient Name: Gunnar Morin Patient Age: 70 y.o. Birthdate: 1945 Admit date: 07/10/2015 Attending Physician: Ezequiel Avilez MD Pt arrived from cardiac cath recovery on stretcher, alert and oriented x 4, denies chest pain or dyspnea. Pt ambulated to BR with supervision, gait steady, no dizziness, able to void. Right radial puncture site clean and intact, + pulse, HR 88 NSR. Pt oriented to room and call light, at bedside. documented in this encounter H&P Notes * Ezequiel Avilez MD - 07/10/2015 1:35 PM EDT Post-PCI Admission History and Physical PCP: PHOENIX THOMAS DO Referring: Dr Koenig Date of Admission: 07/10/2015 Admission Diagnosis: S/p PCI Problem List: Patient Active Problem List Diagnosis ??? CAD (coronary artery disease) ??? Arthritis of knee ??? S/P total hip arthroplasty ??? Osteoarthritis of both knees ??? Bilateral knee pain HPI: This 70 y.o. male with PMHx notable for HTN, HLD, obesity, prediabetes, and presumed CAD presents today for coronary angiography in the setting of pre-op bilateral TKAs and abnormal MIBI (inferolateral ischemia). He is now s/p PCI to the LAD (BMS x2). I have reviewed the available records, interviewed and examined the patient. This patient is admitted post PCI for IV hydration, pain management, access site management in the setting of anticoagulation, serial cardiac biomarker monitoring, telemetry monitoring, evaluation oftheir medical condition, and cardiac rehabilitation. ROS/PMHx/Fam Hx/Soc Hx: Reviewed, see outpatient note. Physical Exam BP 97/72 mmHg Pulse 87 Temp(Src) 36.9 ??C (98.4 ??F) (Temporal) Resp 19 SpO2 90% General: Well-appearing, NAD Neck: Supple, no bruits, JVP flat at 0 degrees Lungs: CTAB, no increased WOB CV: Regular without appreciable murmur/gallop/rub, normal S1S2 Abd: Soft, NTND, +NABS Ext: Warm and well perfused, no LE edema Vascular: 2+ radial with intact distal pulses b/l with TR Band over R radial cath site Labs: No results for input(s): WBC, HGB, HCT, PLATELET in the last 168 hours. No results for input(s): INR in the last 168 hours. No results for input(s): NA, K, CL, CO2, BUN, CREATININE in the last 168 hours. No results for input(s): AST, ALT, ALKPHOS, BILITOT, BILIDIR in the last 168 hours. No results for input(s): CALCIUM, MAGNESIUM, PHOS in the last 168 hours. No results for input(s): CK, TROPONINT in the last 168 hours. No results for input(s): TSH in the last 7068 hours. No results for input(s): HA1C in the last 7068 hours. Assessment/ Plan: #CAD, s/p PCI to mLAD (BMS x2) - Admit for overnight monitoring - Telemetry, serial ECGs, cycle cardiac biomarkers - Continue dual antiplatelet therapy for at least 1-3 months given BMS - IVF - Continue pravastatin as he is intolerant of more potent statins - Start ezetimibe 10mg QHS - Holding on BBlocker for now given relative hypoTN, can start as an outpatient - Monitor access site - Cardiac rehab consult - Anticipate discharge in am - Will need new RX for clopidogrel and ezetimibe at DC #HTN - Follow and titrate therapy PRN #Dyslipidemia - Continue pravastatin as he is intolerant of more potent statins - Start ezetimibe 10mg QHS Attending Addendum: The patient was seen and examined in conjunction with the resident on rounds. My history, physical exam findings, assessment, and plan are reflected in that note. Lab and relevant imaging data was reviewed and the plan was communicated with the patient and available family. Admit for hydration and monitoring post PCI. Ezequiel Avilez MD, [facility] Attending Four Slide Operator Pager [phone] * Ezequiel Avilez MD - 07/10/2015 11:35 AM EDT Complete Adult Pre-Procedural H&P Patient Name: Gunnar Morin : [id number] 70 y.o. MR#: [id number] Chief Complaint: Abnormal stress test Planned Procedure: [facility] History of Present Illness: HPI I have reviewed and updated as necessary the Medical, Surgical, Family, and Social History capturedwithin the EMR. I have reviewed and updated as necessary the patient's allergies and current medication list withinthe EMR. Review of Systems: Review of Systems Physical Exam: Filed Vitals: 07/10/15 1052 BP: 149/89 Pulse: 100 Temp: 36.9 ??C (98.4 ??F) TempSrc: Temporal Resp: 18 SpO2: 96% Physical Exam Normal Allens test. Assessment and Plan: Cath risk reviewed. Plan discussed. Understands the need for BMS in this situation given upcoming surgery. Desires to avoid plavix jail. EZEQUIEL AVILEZ MD 07/10/2015 documented in this encounter Miscellaneous Notes * Plan of Care - Lidia Polanco RN - 07/11/2015 9:14 AM EDT Problem: General Plan of Care Goal: Plan of Care Review Outcome: Outcome (s) achieved Date Met: 07/11/15 07/11/15904 Plan of Care Review Plan of Care Outcome Status ongoing (interventions implemented as appropriate) Progress improving Coping/Psychosocial Response Interventions Plan of Care Reviewed with patient;spouse OUTCOME EVALUATION NOTE: OUTCOME SUMMARY: Pt is alert and oriented x 4, denies chest pain or dyspnea, HR in 80's NSR with PVC's, pt tolerated cardiac walk, voiding in urinal, ate breakfast, right wrist puncture site clean and intact. AVS provided and reviewed, all questions answered. PLAN MOVING FORWARD: Discharge to home INDIVIDUALIZED FALL PREVENTION INTERVENTIONS: Patient-specific fall risk factors per assessment: [current deficits]: Knee pain Assistance [level of assistance required for transfers and ambulation]: independent Supervision [direct monitoring required during toileting and ADLs]: Not required Surveillance [continuous indirect monitoring]: N/A Patient-specific fall prevention interventions for sensory deficits provided, if applicable: no CPG GOAL OUTCOME EVALUATION: Goal: Individualization and Mutuality Outcome: Outcome (s) achieved Date Met: 07/11/15 07/11/15904 Individualization Patient Specific Goals discharge to home Patient Specific Interventions telemetry, cardiac walk, assess right radial site, discharge teaching Goal: Fall Prevention-Safe Patient Handling Outcome: Outcome (s) achieved Date Met: 07/11/15 07/10/15 2100 07/11/15 0121 07/11/15 0555 Musculoskeletal Interventions Activity/Level of Assistance -- -- -- Positioning -- -- HOB up 30 degrees Muscle Strengthening -- mobility in bed promoted;activity/mobility promoted -- Self-Care Promotion -- independence encouraged while providing assistance;personal/BADL objects within reach -- Vera Fall Risk History of Falling 0 -- -- Secondary Diagnosis 15 -- -- Ambulatory Aids 0 -- -- Intravenous Therapy/Heparin/Saline Lock 20 -- -- Gait/Transferring 0 -- -- Mental Status 0 -- -- Score 35 -- -- OTHER Vera Fall Risk Med -- -- Safety Interventions Safety Precautions/Fall Reduction -- -- -- 07/11/15 07 Musculoskeletal Interventions Activity/Level of Assistance up in lamar Positioning -- Muscle Strengthening -- Self-Care Promotion -- Vera Fall Risk History of Falling -- Secondary Diagnosis -- Ambulatory Aids -- Intravenous Therapy/Heparin/Saline Lock -- Gait/Transferring -- Mental Status -- Score -- OTHER Vera Fall Risk -- Safety Interventions Safety Precautions/Fall Reduction fall reduction program maintained Goal: Infection Control Outcome: Outcome (s) achieved Date Met: 07/11/15 07/10/15 2100 07/11/15 07 Coping/Psychosocial Response Interventions Counseling goal setting facilitated;personal strengths integrated;reassurance provided -- Safety Interventions Isolation Precautions -- standard precautions maintained Infection Prevention bronchial hygiene promoted;environmental surveillance;hydration promoted;nutrition promoted;promote handwashing;rest/sleep promoted -- Goal: Discharge Needs Assessment Outcome: Outcome (s) achieved Date Met: 07/11/15 07/11/15904 Discharge Needs Assessment Concerns to be Addressed no discharge needs identified Readmission Within the Last 30 Days no previous admission in last 30 days Equipment Needed After Discharge none Current Health Anticipated Changes Related to Illness none Self-Care Equipment Currently Used at Home none Living Environment Transportation Available family or friend will provide * Plan of Care - Starr Pendleton RN - 07/11/2015 1:27 AM EDT Problem: General Plan of Care Goal: Plan of Care Review Outcome: Ongoing (Interventions Implemented as Appropriate) 07/11/15 0121 Plan of Care Review Plan of Care Outcome Status ongoing (interventions implemented as appropriate) Progress improving Coping/Psychosocial Response Interventions Plan of Care Reviewed with patient;spouse S/p PCI mid-LAD bare metal stents X2 OUTCOME SUMMARY: VS/telemetry stable; NSR with PVCs; denies chest pain, no ROMERO, 2+ pulses no N/T, ambulating, voiding in sufficient quantities. Spouse in room. PLAN: ongoing monitoring, ongoing R wrist site assessments, I/O, AM Labs, AM EKG, AM cardiac walk INDIVIDUALIZED FALL PREVENTION: Assistance: Assisted with bed mobility to find comfortable position, will assist when OOB as needed. Supervision: Stand-by assist with initial ambulation and supervised activity as needed. Surveillance: Continuous pulse ox, call caldwell within reach, purposeful rounding Goal: Individualization and Mutuality Outcome: Ongoing (Interventions Implemented as Appropriate) 07/10/15234007/11/15120 Individualization Individualize the Plan of Care: -- S/P PCI MID LAD bare metal x2 Patient Specific Preferences -- rest, spouse in room Patient Specific Goals -- stable VS/hemodynamics, rest, R radial site CDI, ambulate, samir PO Patient Specific Interventions -- VS/telemetry monitoring, R radial site assessments, I/O, ambulating, AM LABS, AM EKG, AM cardiac walk pending Mutuality/Individual Preferences What anxieties, fears or concerns do you have about your health or care? I hope to be discharged early -- What questions do you have about your health or care? is my wrist OK? -- What information would help us give you more personalized care? none -- Goal: Fall Prevention-Safe Patient Handling Outcome: Ongoing (Interventions Implemented as Appropriate) 07/10/15209907/11/15 0000 07/11/15120 Musculoskeletal Interventions Activity/Level of Assistance -- up ad randal -- Positioning -- HOB up 30 degrees -- Muscle Strengthening -- -- mobility in bed promoted;activity/mobility promoted Self-Care Promotion -- -- independence encouraged while providing assistance;personal/BADL objects within reach Vera Fall Risk History of Falling 0 -- -- Secondary Diagnosis 15 -- -- Ambulatory Aids 0 -- -- Intravenous Therapy/Heparin/Saline Lock 20 -- -- Gait/Transferring 0 -- -- Mental Status 0 -- -- Score 35 -- -- OTHER Vera Fall Risk Med -- -- Safety Interventions Safety Precautions/Fall Reduction -- fall reduction program maintained;family at bedside;lighting adjusted for task/safety;nonskid shoes/slippers when out of bed -- Goal: Infection Control Outcome: Ongoing (Interventions Implemented as Appropriate) 07/10/15209907/11/15 0000 Coping/Psychosocial Response Interventions Counseling goal setting facilitated;personal strengths integrated;reassurance provided -- Safety Interventions Isolation Precautions -- standard precautions maintained Infection Prevention bronchial hygiene promoted;environmental surveillance;hydration promoted;nutrition promoted;promote handwashing;rest/sleep promoted -- Goal: Discharge Needs Assessment Outcome: Ongoing (Interventions Implemented as Appropriate) 04/09/16 0121 Discharge Needs Assessment Concerns to be Addressed no discharge needs identified Readmission Within the Last 30 Days no previous admission in last 30 days Equipment Needed After Discharge none Current Health Anticipated Changes Related to Illness none Self-Care Equipment Currently Used at Home none Living Environment Transportation Available family or friend will provide documented in this encounter Plan of Treatment Upcoming Encounters Date Type Department Care Team (Late st Contact Info) Description 10/31/2023 9:15 AM EDT Office Visit Dermatology at [facility] [address] [place] [address] Dawson Broderick MD [facility] [place] [address] 07/23/2024 9:30 AM EDT Office Visit Dermatology at [facility] [address] [place] [address] Dawson Broderick MD [facility] [place] [address] documented as of this encounter Procedures Procedure Name Priority Date/Time Associated Diagnosis Comments ANVIL SEATING PRESS OPERATOR SCAN 07/13/2015 12:00 AM EDT EKG 12-LEAD Routine 07/11/2015 7:24 AM EDT ASCVD (arteriosclerotic cardiovascular disease) BMP W/FASTING GLUCOSE Routine 07/11/2015 4:35 AM EDT HEMOGRAM Routine 07/11/2015 4:35 AM EDT DIFFERENTIAL, AUTOMATED Routine 07/11/2015 4:35 AM EDT CARDIAC ENZYMES ([facility]/[facility]) Routine 07/11/2015 4:35 AM EDT CBC (WITH DIFF) Routine 07/11/2015 4:35 AM EDT LIPID PANEL (REFLEX DIRECT LDL) Routine 07/11/2015 4:35 AM EDT EKG 12-LEAD Routine 07/10/2015 1:57 PM EDT ASCVD (arteriosclerotic cardiovascular disease) HEMOGRAM STAT 07/10/2015 1:15 PM EDT DIFFERENTIAL, AUTOMATED STAT 07/10/2015 1:15 PM EDT CARDIAC ENZYMES ([facility]P) STAT 07/10/2015 1:15 PM EDT PROTHROMBIN TIME Routine 07/10/2015 1:15 PM EDT CBC (WITH DIFF) STAT 07/10/2015 1:15 PM EDT COMPREHENSIVE METABOLIC PANEL (NON-FASTING) STAT 07/10/2015 1:15 PM EDT EKG 12-LEAD Routine 07/10/2015 11:00 AM EDT ASCVD (arteriosclerotic cardiovascular disease) documented in this encounter Results * SCAN DOC: ANVIL SEATING PRESS OPERATOR (07/13/2015 12:00 AM EDT) Anatomical Region Laterality Modality Other Scanning Provider MEDIA MGR SCAN EXT O RDR/RSLT * EKG 12 Lead (07/11/2015 7:24 AM EDT) Ventricular rate 76 BPM MUSE SYSTEM Atrial Rate 76 BPM MUSE SYSTEM P-R Interval 176 ms MUSE SYSTEM QRS Duration 98 ms MUSE SYSTEM Q-T Interval 378 ms MUSE SYSTEM QTC Calculated (Bezet) 425 ms MUSE SYSTEM Calculated P Denver 21 degrees MUSE SYSTEM Calculated R Denver 14 degrees MUSE SYSTEM Calculated T Denver 8 degrees MUSE SYSTEM INTERPRETATION Normal sinus rhythm Normal ECG When compared with ECG of 10-JUL-2015 13:57, (unconfirmed) No significant change was found Confirmed by MD Cárdenas Douglas ([id number]) on 07/11/2015 1:14:13 PM MUSE SYSTEM 07/11/2015 7:24 AM EDT 07/11/2015 1:14 PM EDT Ezequiel Avilez MD ECG ORDERABLES MUSE SYSTEM * Differential, Automated (07/11/2015 4:35 AM EDT) Neutrophils % 68.1 % [facility] Neutr Abs (ANC) 4.22 1.50 - 6.30 x10(3)/[facility] Lymphocytes % 22.1 % [facility] Lymphocytes Abs 1.4 1.0 - 3.6 x10(3)/[facility] Monocytes % 7.7 % [facility] Monocyte Abs 0.5 0.2 - 1.0 x10(3)/[facility] Eosinophils % 1.6 % [facility] Eosinophils Abs 0.1 0.0 - 0.5 x10(3)/[facility] Basophils % 0.3 % [facility] Basophils Abs 0.0 0.0 - 0.2 x10(3)/[facility] Immature Gran % 0.20 % [facility] Comment: Immature granulocytes(IG's)percentage and absolute count will include metamyelocytes, myelocytes, and promyelocytes. Blood smears from CBCs yielding IG's will be scanned manually for concordance. If this scan disagrees with the automated IG or if promyelocytes are noted, a manual differential will be performed. Geovanna Gran Abs 0.01 0.00 - 0.05 x10(3)/[facility] Blood specimen (specimen) 07/11/2015 4:35 AM EDT 07/11/2015 4:42 AM EDT Narrative Resulting Agency Comment Spec In Lab Ezequeil Avilez MD HEMATOLOGY ORDERABLE S Performing Organization Address City/[facility]/ZIP Co de Phone Number [facility] [place] [address] * (ABNORMAL) Hemogram (07/11/2015 4:35 AM EDT) WBC 6.2 4.0 - 10.0 x10(3)/[facility] RBC 4.44(L) 4.63 - 6.08 x10(6)/[facility] Hemoglobin 14.2 13.7 - 17.5 gm/dL [facility] Hematocrit 42.3 40.0 - 51.0 % [facility] MCV 95.3(H) 79.0 - 92.0 fL [facility] MCH 32.0 25.6 - 32.2 pg [facility] MCHC 33.6 32.0 - 36.5 gm/dL [facility] Platelets 144(L) 145 - 370 x10(3)/[facility] RDWSD 43.6 35.0 - 46.0 fL [facility] RDWCV 12.5 10.9 - 14.4 % [facility] MPV 10.6 9.0 - 12.0 [facility] Blood specimen (specimen) 07/11/2015 4:35 AM EDT 07/11/2015 4:42 AM EDT Narrative Resulting Agency Comment Spec In Lab Ezequiel Avilez MD HEMATOLOGY ORDERABLE S [facility] [place] [address] * (ABNORMAL) Lipid panel (fasting) (07/11/2015 4:35 AM EDT) Chol, Total 200(H) <=199 mg/dL [facility] Comment: Recommendations of the NCEP Adult Treatment Panel for the following risk cutoff thresholds for the [place] population: Desirable: <200 mg/dL Borderline High: 200-239 mg/dL High: > or = 240 mg/dL Triglycerides 175(H) <=149 mg/dL [facility] Comment: Reference Range: Normal triglycerides: ??<150 mg/dL Borderline high: ??150-199 mg/dL High: ??200-499 mg/dL Very high: ??>fs=570 mg/dL AISLINN 2001; 285(19):[phone] HDL 39(L) >=40 mg/dL [facility] Comment: Reference range: ??Low HDL: ?? < 40 mg/dL ??Normal: ?40-60 mg/dL ??Desirable: > 60 mg/dL AISLINN 2001; 285(19):[phone] LDL Cholesterol 126(H) <=99 mg/dL [facility] Comment: Reference range: ?? Optimal: ?<100 mg/dL ?? Near Optimal/Above Optimal: ?? 100-129 mg/dL ?? Borderline high: ?130-159 mg/dL ?? High: ? 160-189 mg/dL ?? Very high: ?>cq=751 mg/dL AISLINN 2001: 285(19):7721-4835 Chol/HDL Ratio 5.1 ratio [facility] Comment: A Cholesterol to HDL ratio below 4:1 is desirable. ??Studies suggest that increased CAD risk occurs at ratios above 5 for females and above 6 for men. ? [place] Heart Association ??(http://www.americanheart.org) ? Rehana Int Med, 1994; 121:641 ? AM J Med, 1998; 105(1A):48S Blood specimen (specimen) 07/11/2015 4:35 AM EDT 07/11/2015 4:42 AM EDT Narrative Resulting Agency Comment Spec In Lab Ezequiel Avilez MD CHEMISTRY ORDERABLES [facility] [place] [address] * (ABNORMAL) BMP w/fasting Glucose (07/11/2015 4:35 AM EDT) Glucose Fasting 100(H) 65 - 99 mg/dL [facility] Comment: ?Fasting* Glucose Interpretive Criteria Normal ?65-99 mg/dL Impaired Fasting glucose ?100-125 mg/dL Consistent with Diabetes Mellitus ? >or= 126 mg/dL *Fasting is defined as no caloric intake for at least 8 hours In the absence of unequivocal hyperglycemia a plasma glucose value of >or= 126 mg/dL should be repeated on a subsequent day. Diagnosis and Classification of Diabetes Mellitus, Position Statement from the [place] [employer]. ??Diabetes Care, Volume 33, Supplement 1, Apr 2009 BUN 14 10 - 20 mg/dL [facility] Creatinine 1.09 0.80 - 1.50 mg/dL [facility] Comment: Please note that the pediatric reference intervals supplied above were not validated at [facility]. Results from pediatric patients should be interpreted in conjunction to the patient's age, height and muscle mass. Sodium 141 135 - 145 mmol/L [facility] Potassium 4.2 3.5 - 5.0 mmol/L [facility] Comment: Please note: ??Patients with WBC >100,000 may have falsely elevated Potassium levels. ??For accurate Potassium quantification in these patients send serum separator tube (gold top) for subsequent determinations. ??Contact the Clinical Chemistry Laboratory if there are any questions. Chloride 104 98 - 107 mmol/L [facility] CO2 25 22 - 31 mmol/L [facility] Anion Gap 12 5 - 15 mmol/L [facility] Calcium 8.6 8.5 - 10.5 mg/dL [facility] Estimated GFR >60 >=60 [facility] Comment: This estimated GFR [...] the following links into your internet browser. [email or web address] Blood specimen (specimen) 07/11/2015 4:35 AM EDT 07/11/2015 4:42 AM EDT Narrative Resulting Agency Comment Spec In Lab Ezequiel Avilez MD CHEMISTRY ORDERABLES Performing Organization Address [facility] Co de Phone Number [facility] [place] [address] * Cardiac Enzymes (07/11/2015 4:35 AM EDT) Troponin-T <0.03 <=0.03 ng/mL [facility] Comment: 0.03 ng/mL: Represents the 99th percentile upper reference limit for normals. >0.03 ng/mL: Elevated cardiac troponin T level indicative of myocardial damage. Diagnosis of acute, evolving or recent RI requires a typical rise and gradual fall of cTnT with at least ONE of the following: a) Ischemic symptoms b) Development of pathologic Q waves on the ECG c) ECG changes indicative of eschemia (S-T segment elevation/depression) d) Coronary artery intervention Serial bloods should be obtained for testing on admission, at 6 to 9 hrs and again at 12 to 24 hrs if earlier samples are negative and the clinical index of suspicion is high. Reference: [Myocardial infarction redefined? a consensus document of the Joint Society of Cardiology/[place] [employer] Committee for the redefinition of myocardial infarction. ??Journal of the [place] College [employer] 2000; 36: 959-969] CK, Total 116 0 - 200 unit/L [facility] Blood specimen (specimen) 07/11/2015 4:35 AM EDT 07/11/2015 4:42 AM EDT Narrative Resulting Agency Comment Spec In Lab Ezequiel Avilez MD CHEMISTRY ORDERABLES Performing Organization Address [facility]/ZIP Co de Phone Number [facility] [place] [address] * EKG 12 Lead (07/10/2015 1:57 PM EDT) Pathologist [facility] [place] Ventricular rate 74 BPM MUSE SYSTEM Atrial Rate 74 BPM MUSE SYSTEM P-R Interval 178 ms MUSE SYSTEM QRS Duration 100 ms MUSE SYSTEM Q-T Interval 394 ms MUSE SYSTEM QTC Calculated (Bezet) 437 ms MUSE SYSTEM Calculated P [place] 31 degrees MUSE SYSTEM Calculated R [place] 7 degrees MUSE SYSTEM Calculated T [place] 3 degrees MUSE SYSTEM INTERPRETATION Normal sinus rhythm Nonspecific T wave abnormality Inferior leads Abnormal ECG Confirmed by MD Cárdenas Douglas ([id number]) on 07/11/2015 1:13:39 PM MUSE SYSTEM 07/10/2015 1:57 PM EDT 07/11/2015 1:13 PM EDT Ezequiel Avilez MD ECG ORDERABLES MUSE SYSTEM * Cardiac Enzymes (07/10/2015 1:15 PM EDT) Pathologist [facility] [place] Troponin-T <0.03 <=0.03 ng/mL [facility] Comment: 0.03 ng/mL: Represents the 99th percentile upper reference limit for normals. >0.03 ng/mL: Elevated cardiac troponin T level indicative of myocardial damage. Diagnosis of acute, evolving or recent RI requires a typical rise and gradual fall of cTnT with at least ONE of the following: a) Ischemic symptoms b) Development of pathologic Q waves on the ECG c) ECG changes indicative of eschemia (S-T segment elevation/depression) d) Coronary artery intervention Serial bloods should be obtained for testing on admission, at 6 to 9 hrs and again at 12 to 24 hrs if earlier samples are negative and the clinical index of suspicion is high. Reference: [Myocardial infarction redefined? a consensus document of the Joint Society of Cardiology/[place] [employer] Committee for the redefinition of myocardial infarction. ??Journal of the [place] College [employer]iology 2000; 36: 959-969] CK, Total 106 0 - 200 unit/L [facility] Blood specimen (specimen) Venous Draw / Unknown 07/10/2015 1:15 PM EDT 07/10/2015 2:04 PM EDT Narrative Resulting Agency Comment Spec In Lab Ezequiel Avilez MD CHEMISTRY ORDERABLES Performing Organization Address City/[facility]/ZIP Co de Phone Number [facility] [place] [address] * Differential, Automated (07/10/2015 1:15 PM EDT) Neutrophils % 61.3 % [facility] Neutr Abs (ANC) 2.51 1.50 - 6.30 x10(3)/[facility] Lymphocytes % 30.0 % [facility] Lymphocytes Abs 1.2 1.0 - 3.6 x10(3)/[facility] Monocytes % 6.8 % [facility] Monocyte Abs 0.3 0.2 - 1.0 x10(3)/[facility] Eosinophils % 1.2 % [facility] Eosinophils Abs 0.0 0.0 - 0.5 x10(3)/[facility] Basophils % 0.5 % [facility] Basophils Abs 0.0 0.0 - 0.2 x10(3)/[facility] Immature Gran % 0.20 % [facility] Comment: Immature granulocytes(IG's)percentage and absolute count will include metamyelocytes, myelocytes, and promyelocytes. Blood smears from CBCs yielding IG's will be scanned manually for concordance. If this scan disagrees with the automated IG or if promyelocytes are noted, a manual differential will be performed. Geovanna Gran Abs 0.01 0.00 - 0.05 x10(3)/[facility] Blood specimen (specimen) 07/10/2015 1:15 PM EDT 07/10/2015 2:33 PM EDT Narrative Resulting Agency Comment Spec In Lab Ezequiel Avilez MD HEMATOLOGY ORDERABLE S Performing Organization Address City/[facility]/ZIP Co de Phone Number [facility] [place] [address] * (ABNORMAL) Hemogram (07/10/2015 1:15 PM EDT) Pathologist [facility] [place] WBC 4.1 4.0 - 10.0 x10(3)/[facility] RBC 4.21(L) 4.63 - 6.08 x10(6)/[facility] Hemoglobin 13.3(L) 13.7 - 17.5 gm/dL [facility] Hematocrit 39.9(L) 40.0 - 51.0 % [facility] MCV 94.8(H) 79.0 - 92.0 fL [facility] MCH 31.6 25.6 - 32.2 pg [facility] MCHC 33.3 32.0 - 36.5 gm/dL [facility] Platelets 233 145 - 370 x10(3)/[facility] LABORATORY RDWSD 43.0 35.0 - 46.0 [facility] RDWCV 12.5 10.9 - 14.4 % [facility] MPV 10.2 9.0 - 12.0 [facility] Blood specimen (specimen) 07/10/2015 1:15 PM EDT 07/10/2015 2:33 PM EDT Narrative Resulting Agency Comment Spec In Lab Ezequiel Avilez MD HEMATOLOGY ORDERABLE S [facility] [place] [address] * (ABNORMAL) Comprehensive metabolic panel (non-fasting) (07/10/2015 1:15 PM EDT) [facility] Glucose Lvl 96 65 - 199 mg/dL [facility] Comment:Diabetes: >=200 mg/d L plus symptoms BUN 15 10 - 20 mg/dL [facility] Creatinine 0.96 0.80 - 1.50 mg/dL [facility] Comment: Please note that the pediatric reference intervals supplied above were not validated at [facility]. Results from pediatric patients should be interpreted in conjunction to the patient's age, height and muscle mass. Sodium 137 135 - 145 mmol/L [facility] Potassium 4.4 3.5 - 5.0 mmol/L [facility] Comment: Please note: ??Patients with WBC >100,000 may have falsely elevated Potassium levels. ??For accurate Potassium quantification in these patients send serum separator tube (gold top) for subsequent determinations. ??Contact the Clinical Chemistry Laboratory if there are any questions. Chloride 102 98 - 107 mmol/L [facility] CO2 22 22 - 31 mmol/L [facility] Anion Gap 13 5 - 15 mmol/L [facility] Calcium 8.1(L) 8.5 - 10.5 mg/dL [facility] Total Protein 6.0(L) 6.1 - 8.0 gm/dL [facility] Albumin 3.5 3.2 - 5.2 gm/dL [facility] AST 16 0 - 39 unit/L [facility] ALT 24 0 - 55 unit/L [facility] Alk Phos 41 40 - 120 unit/L [facility] Total Bilirubin 0.3 0.2 - 1.3 mg/dL [facility] Bili, Direct 0.1 0.0 - 0.3 mg/dL [facility] Estimated GFR >60 >=60 [facility] Comment: This estimated GFR [...] the following links into your internet browser. [email or web address] Blood specimen (specimen) 07/10/2015 1:15 PM EDT 07/10/2015 2:04 PM EDT Narrative Resulting Agency Comment Spec In Lab Ezequiel Avilez MD CHEMISTRY ORDERABLES Performing Organization Address City/[facility]/ZIP Co de Phone Number [facility] [place] [address] * (ABNORMAL) Prothrombin Time (07/10/2015 1:15 PM EDT) PT 16.3(H) 12.0 - 15.0 sec [facility] [...] be appropriate depending on clinical circumstances. INR 1.3(H) 0.9 - 1.1 [facility] Blood specimen (specimen) 07/10/2015 1:15 PM EDT 07/11/2015 9:39 AM EDT Narrative Resulting Agency Comment Spec In Lab Ezequiel Avilez MD HEMATOLOGY ORDERABLE S Performing Organization Address City/[facility]/ZIP Co de Phone Number [facility] [place] [address] * EKG 12 Lead (07/10/2015 11:00 AM EDT) Ventricular rate 100 BPM MUSE SYSTEM Atrial Rate 100 BPM MUSE SYSTEM P-R Interval 174 ms MUSE SYSTEM QRS Duration 96 ms MUSE SYSTEM Q-T Interval 340 ms MUSE SYSTEM QTC Calculated (Bezet) 438 ms MUSE SYSTEM Calculated P [place] 32 degrees MUSE SYSTEM Calculated R [place] 22 degrees MUSE SYSTEM Calculated T [place] -13 degrees MUSE SYSTEM INTERPRETATION Poor data quality Normal sinus rhythm Cannot rule out Inferior infarct , age undetermined Abnormal ECG When compared with ECG of 25-JUN-2015 10:35, Minimal criteria for Inferior infarct are now Present Confirmed by MD LAWRENCE ALAN ([id number]) on 07/10/2015 3:38:41 PM MUSE SYSTEM 07/10/2015 11:0 0 AM EDT 07/10/2015 3:38 PM EDT Ezequiel Avilez MD ECG ORDERABLES [facility] SYSTEM documented in this encounter Visit Diagnoses Diagnosis ASCVD (arteriosclerotic cardiovascular disease) Unspecified cardiovascular disease CAD (coronary artery disease) Coronary atherosclerosis of unspecified type of vessel, [place] or graft documented in this encounter Admitting Diagnoses Diagnosis CAD (coronary artery disease) Coronary atherosclerosis of unspecified type of vessel, [place] or graft documented in this encounter Administered Medications Inactive Administered Medications - up to 3 most recent administrations Medication Order MAR Action Action Date Dose Rate Site alum-mag hydroxide-simeth (MAALOX) 200-200-20 mg/5 mL oral suspension 1 dose, Starting on Mon07/10/15 at 1342, Until Mon07/10/15 at 1340, CASSIE MCCORMICK: cabinet override Given 07/10/2015 1:40 PM EDT 30 mLs aspirin EC tablet 81 mg 81 mg, Oral, DAILY, First dose on Mon07/10/15 at 1900, Until Discontinued, Routine Given 07/10/2015 9:15 PM EDT 81 mg clopidogrel (PLAVIX) tablet 75 mg 75 mg, Oral, DAILY, First dose on Mon07/11/15 at 0900, Until Discontinued, Routine Given 07/11/2015 8:27 AM EDT 75 mg lidocaine (XYLOCAINE) 10 mg/mL (1 %) injection 3 mg 3 mg (0.3 mL), Subcutaneous, ONCE PRN, 1 dose, Starting on Mon07/10/15 at 1048, Until Mon07/10/15 at 1120, with discomfort with PIV insertion, Cath (Day of Procedure), Routine Given 07/10/2015 11:20 AM EDT 3 mg sodium chloride 0.9% infusion 50 mL/hr, Intravenous, CONTINUOUS, Starting on Mon07/10/15 at 1115, Until Mon07/10/15 at 1742, Cath (Day of Procedure) New Bag 07/10/2015 11:29 AM EDT 50 mL/hr 50 mL/hr sodium chloride 0.9% infusion 100 mL/hr, Intravenous, CONTINUOUS, Starting on Mon07/10/15 at 1415, Until 07/11/15 at 0014, Recovery (Recovery-Hospital Unit) New Bag 07/10/2015 1:58 PM EDT 100 mL/hr 100 mL /hr documented in this encounter Active and Recently Administered Medications Times are shown in EDT. Scheduled Medication Order 07/09/2015 07/10/2015 07/11/2015 aspirin EC tablet 81 mg (CANCELED) 81 mg, Oral, DAILY, First dose on Mon07/10/15 at 1900, Until Discontinued, Routine 2115 (Given - Provider: Starr Pendleton RN) 0825 (Not Given - Provider: Lidia Polanco RN - Reason: Patient/family refused) clopidogrel (PLAVIX) tablet 75 mg 75 mg, Oral, DAILY, First dose on 07/11/15 at 0900, Until Discontinued, Routine 0827 (Given - Provid er: Lidia Polanco RN) ezetimibe (ZETIA) tablet 10 mg 10 mg, Oral, DAILY, First dose on 07/11/15 at 0900, Until Discontinued, Routine 0900 (Not Given - Provider: Lidia Polanco RN - Reason: Patient/family refused) Continuous Medication Order 07/09/2015 07/10/2015 07/11/2015 sodium chloride 0.9% infusion (CANCELED) 50 mL/hr, Intravenous, CONTINUOUS, Starting on Mon07/10/15 at 1115, Until Mon07/10/15 at 1742, Cath (Day of Procedure) 1129 (New Bag - Provider: Zuly Jain, MICHAELA) sodium chloride 0.9% infusion () 100 mL/hr, Intravenous, CONTINUOUS, Starting on Mon07/10/15 at 1415, Until 07/11/15 at 0014, Recovery (Recovery-Hospital Unit) 1358 (New Bag - Provider: Cassie Mccormick, MICHAELA) 0010 (Stopped - Provider: Starr Pendleton, MICHAELA) PRN Medication Order 07/09/2015 07/10/2015 07/11/2015 aspirin chewable tablet (CANCELED) ONCE PRN, Starting on Mon07/10/15 at 1315, Until Mon07/10/15 at 1347, Cath (Intra-Procedure), Routine 1315 (Given - Provider: Shoshana Stokes RN) clopidogrel (PLAVIX) tablet (CANCELED) ONCE PRN, Starting on Mon07/10/15 at 1229, Until Mon07/10/15 at 1742, Intra-Operative (Intra-Procedure), Routine 1229 (Given - Provider: Shoshana Stokes RN) fentaNYL 50 mcg/mL multi-dose injection (CANCELED) ONCE PRN, Starting on Mon07/10/15 at 1202, Until Mon07/10/15 at 1742, Intra-Operative (Intra-Procedure), Routine 1202 (Given - Provider: Shoshana Stokes RN)1207 (Given - Provider: Shoshaan Stokes RN)1255 (Given - Provider: Shoshana Stokes RN) heparin (porcine) injection (CANCELED) ONCE PRN, Starting on Mon07/10/15 at 1213, Until Mon07/10/15 at 1347, Cath (Intra-Procedure), Routine 1213 (Given - Provider: Shoshana Stokes RN)1228 (Given - Provider: Edwin Martinez RN) lidocaine (XYLOCAINE) 10 mg/mL (1 %) injection 3 mg (COMPLETED) 3 mg (0.3 mL), Subcutaneous, ONCE PRN, 1 dose, Starting on Mon07/10/15 at 1048, Until Mon07/10/15 at 1120, with discomfort with PIV insertion, Cath (Day of Procedure), Routine 1120 (Given - Provider: Zuly Jain RN) midazolam (PF) (VERSED) 1 mg/mL multi-dose injection (CANCELED) ONCE PRN, Starting on Mon07/10/15 at 1202, Until Mon07/10/15 at 1347, Cath (Intra-Procedure), Routine 1202 (Given - Provider: Shoshana Stokes RN)1207 (Given - Provider: Shoshana Stokes, MICHAELA)1255 (Given - Provider: Shoshana Stokes RN) nitroGLYcerin (NITROSTAT) SL tablet 0.4 mg 0.4 mg, Sublingual, EVERY 5 MIN PRN, Starting on Mon07/10/15 at 1753, Until Mon07/11/15 at 1107, Chest pain, May repeat every 5 minutes for a total of three doses. Notify provider if chest pain not relieved with nitroglycerin. Do not administer nitroglycerin if the patinet has received or taken phosphodiesterase (PDE-5) inhibitors such as sildenafil, tadalafil or vardenafil within the last 24 to 72 hours., Recovery (Recovery-Hospital Unit), Routine nitroGLYcerin 100 mcg/mL intracoronary dilution (CANCELED) ONCE PRN, Starting on Mon07/10/15 at 1211, Until Mon07/10/15 at 1347, Cath (Intra-Procedure), Routine 1211 (Given - Provider: Harris Gray MD)1310 (Given - Provider: Ezequiel Avilez MD) sodium chloride 0.9% infusion (CANCELED) CONTINUOUS PRN, Starting on Mon07/10/15 at 1215, Until Mon07/10/15 at 1347, Cath (Intra-Procedure) 1215 (New Bag - Provider: Shoshana Stokes RN) verapamil (ISOPTIN) injection (CANCELED) ONCE PRN, Starting on Mon07/10/15 at 1211, Until Mon07/10/15 at 1347, Administer over 2 Minutes, Cath (Intra-Procedure) 1211 (Given - Provider: Harris Gray MD) No Frequency Medication Order 07/09/2015 07/10/2015 07/11/2015 alum-mag hydroxide-simeth (MAALOX) 200-200-20 mg/5 mL oral suspension (COMPLETED) 1 dose, Starting on Mon07/10/15 at 1342, Until Mon07/10/15 at 1340, CASSIE MCCORMICK: cabinet override 1340 (Given - Provider: Cassie Mccormick RN) documented in this encounter 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
--- OUTSIDE RECORDS SUMMARY | 2023-10-23 09:10 | XMS_ITS | Encounter Summary ---
Author Organization [facility] [address] Care Team Providers Care School Inspector Name Role Phone DevantePhoenix orozco Susan MCDOWELL Primary Care Provider [phone] Reason for Visit * Auth/Cert Specialty Diagnoses / Procedures Referred By Omid shepherd Referred To Contact Diagnoses CAD (coronary artery disease) ASCVD Procedures CARDIAC CATHETERIZATION Referral ID Status Reason Start Date Expiration Date Visits Re quested Visits Authorized [id number] 1 1 Encounter Details Date Type Department Care Team (Late st Contact Info) Description 07/10/2015 11:00 AM EDT - 07/10/2015 12:00 PM EDT [place] [address] Ezequiel Avilez MD [facility] [place] [address] CARDIAC CATHETERIZATION Social History Tobacco Use Types Packs/Day Years [...] Sign Reading Time Taken Comments Blood Pressure 149/89 07/10/2015 10:52 AM EDT Pulse 100 07/10/2015 10:52 AM EDT Temperature 36.9 ??C (98.4 ??F) 07/10/2015 10:52 AM E DT Respiratory Rate 18 07/10/2015 10:52 AM EDT Oxygen Saturation 96% 07/10/2015 10:52 AM EDT Inhaled Oxygen Concentration - - Weight - - Height - - Body Mass Index - - documented in this encounter Discharge Summaries * Susan Arnold PA - 07/10/2015 1:47 PM EDT Discharge Summary Patient Name: Gunnar Morin Patient Age: 70 y.o. Language: Malay Race: White Ethnicity: Not nor Admit date: [...] (Bezet) 425 ms Preliminary ? Calculated P Garfield 21 degrees Preliminary ? Calculated R Garfield 14 degrees Preliminary ? Calculated T Garfield 8 degrees Preliminary ? INTERPRETATION Preliminary ? [...] appointments: During 8am-5pm Monday through Monday call [phone] to speak with a nurse in the cardiology clinic All other times call [phone] and ask to speak to the engineering librarian general production manager. Return to work: One week Driving: No driving for 48 hours after catheterization. Follow up Appointments: PCP Call for appointment in 1-2 weeks. Engine Oiler - You should see Dr Koenig in the next 4 weeks; please call and make an appointmentif you do not have one already Home oxygen therapy: N/A Arrangements for VNA/home care: none There are no Patient Instructions on file for this visit. General Instructions None Future Appointments Provider Department Dept Phone 08/20/2015 1:40 PM [facility] DX ROOM 1 [facility] Xray [phone] Patient instructions placeholder. Please go to Senior Site Manager Area 3T ([place] Location). 08/20/2015 2:40 PM Walter Rae MD Orthopaedics [phone] Discharge References/Attachments None documented in this encounter Discharge Instructions * Attachments The following attachments cannot be sent through Care Everywhere. * PCI (PERCUTANEOUS CORONARY INTERVENTION) : POST-OP (GAMBIAN) documented in this encounter Medications at Time [...] and monitoring post PCI. Ezequiel Avilez MD, [facility] Attending Engine Oiler Pager [phone] * Ezequiel Avilez MD - 07/10/2015 11:35 AM EDT Complete Adult Pre-Procedural H&P Patient Name: Gunnar Morin : [id number] 70 y.o. MR#: [id number] Chief Complaint: Abnormal stress test Planned Procedure: [facility] History of Present Illness: HPI I have [...] given upcoming surgery. Desires to avoid plavix skilled nursing. EZEQUIEL AVILEZ MD 07/10/2015 documented in this [...] Safety Precautions/Fall Reduction -- -- -- 07/11/15 0700 Musculoskeletal Interventions Activity/Level of Assistance up in [...] Outcome: Outcome (s) achieved Date Met: 07/11/15 07/11/15 09 Discharge Needs Assessment Concerns to be Addressed [...] Mutuality Outcome: Ongoing (Interventions Implemented as Appropriate) 07/10/15 2341 07/11/15120 Individualization Individualize the Plan of Care: -- [...] Assessment Outcome: Ongoing (Interventions Implemented as Appropriate) 07/11/15120 Discharge Needs Assessment Concerns to be Addressed [...] [facility] [address] [place] [address] Dawson Broderick MD [facility] [place] [address] 07/23/2024 9:30 AM EDT Office Visit Dermatology at [facility] [address] [place] [address] Dawson Broderick MD [facility] [place] [address] documented as of this encounter Procedures Procedure Name Priority Date/Time Associated Diagnosis Comments CODE CLERK SCAN 07/13/2015 12:00 AM EDT EKG 12-LEAD Routine 07/11/2015 7:24 AM EDT ASCVD (arteriosclerotic cardiovascular disease) BMP W/FASTING GLUCOSE Routine 07/11/2015 4:35 AM EDT HEMOGRAM Routine 07/11/2015 4:35 AM EDT DIFFERENTIAL, AUTOMATED Routine 07/11/2015 4:35 AM EDT CARDIAC ENZYMES ([facility]/CGP) Routine 07/11/2015 4:35 AM EDT CBC (WITH DIFF) Routine 07/11/2015 4:35 AM EDT LIPID PANEL (REFLEX DIRECT LDL) Routine 07/11/2015 4:35 AM EDT EKG 12-LEAD Routine 07/10/2015 1:57 PM EDT ASCVD (arteriosclerotic cardiovascular disease) HEMOGRAM STAT 07/10/2015 1:15 PM EDT DIFFERENTIAL, AUTOMATED STAT 07/10/2015 1:15 PM EDT CARDIAC ENZYMES (MC/CGP) STAT 07/10/2015 1:15 PM EDT PROTHROMBIN TIME Routine 07/10/2015 1:15 PM EDT CBC (WITH DIFF) STAT 07/10/2015 1:15 PM EDT COMPREHENSIVE METABOLIC PANEL (NON-FASTING) STAT 07/10/2015 1:15 PM EDT EKG 12-LEAD Routine 07/10/2015 11:00 AM EDT ASCVD (arteriosclerotic cardiovascular disease) documented in this encounter Results * SCAN DOC: CODE CLERK (07/13/2015 12:00 AM EDT) Anatomical Region Laterality [...] (Bezet) 425 ms MUSE SYSTEM Calculated P Garfield 21 degrees MUSE SYSTEM Calculated R Garfield 14 degrees MUSE SYSTEM Calculated T Garfield 8 degrees MUSE SYSTEM INTERPRETATION Normal sinus rhythm Normal ECG When compared with ECG of 10-JUL-2015 13:57, (unconfirmed) No significant change was found Confirmed by MD Ezequiel, Ezekiel ([id number]) on 07/11/2015 1:14:13 PM MUSE SYSTEM 07/11/2015 7:24 AM EDT 07/11/2015 1:14 PM EDT Ezequiel Avilez MD ECG ORDERABLES MUSE SYSTEM * Differential, Automated (07/11/2015 4:35 AM EDT) Neutrophils % 68.1 % [facility] Neutr Abs (ANC) 4.22 1.50 - 6.30 x10(3)/[facility] Lymphocytes % 22.1 % [facility] Lymphocytes Abs 1.4 1.0 - 3.6 x10(3)/[facility] Monocytes % 7.7 % [facility] Monocyte Abs 0.5 0.2 - 1.0 x10(3)/[facility] Eosinophils % 1.6 % [facility] Eosinophils Abs 0.1 0.0 - 0.5 x10(3)/[facility] Basophils % 0.3 % [facility] Basophils Abs 0.0 0.0 - 0.2 x10(3)/[facility] Immature Gran % 0.20 % [facility] Comment: Immature granulocytes(IG's)percentage and absolute count will include metamyelocytes, myelocytes, and promyelocytes. Blood smears from CBCs yielding IG's will be scanned manually for concordance. If this scan disagrees with the automated IG or if promyelocytes are noted, a manual differential will be performed. Geovanna Gran Abs 0.01 0.00 - 0.05 x10(3)/[facility] Blood specimen (specimen) 07/11/2015 4:35 AM EDT 07/11/2015 4:42 AM EDT Narrative Resulting Agency Comment Spec In Lab Ezequiel Avilez MD HEMATOLOGY ORDERABLE S [facility] [place] [address] * (ABNORMAL) Hemogram (07/11/2015 4:35 AM EDT) WBC 6.2 4.0 - 10.0 x10(3)/[facility] RBC 4.44(L) 4.63 - 6.08 x10(6)/[facility] Hemoglobin 14.2 13.7 - 17.5 gm/dL [facility] Hematocrit 42.3 40.0 - 51.0 % [facility] MCV 95.3(H) 79.0 - 92.0 fL [facility] MCH 32.0 25.6 - 32.2 pg [facility] MCHC 33.6 32.0 - 36.5 gm/dL [facility] Platelets 144(L) 145 - 370 x10(3)/[facility] RDWSD 43.6 35.0 - 46.0 fL [facility] RDWCV 12.5 10.9 - 14.4 % [facility] MPV 10.6 9.0 - 12.0 fL [facility] Blood specimen (specimen) 07/11/2015 4:35 AM EDT 07/11/2015 4:42 AM EDT Narrative Resulting Agency Comment Spec In Lab Ezequiel Avilez MD HEMATOLOGY ORDERABLE S [facility] [place] [address] * (ABNORMAL) Lipid panel (fasting) (07/11/2015 4:35 AM EDT) Chol, Total 200(H) <=199 mg/dL [facility] Comment: Recommendations of the NCEP Adult Treatment Panel for the following risk cutoff thresholds for the [place] population: Desirable: <200 mg/dL Borderline High: 200-239 mg/dL High: > or = 240 mg/dL Triglycerides 175(H) <=149 mg/dL [facility] Comment: Reference Range: Normal triglycerides: ??<150 mg/dL Borderline high: ??150-199 mg/dL High: ??200-499 mg/dL Very high: ??>di=314 mg/dL AISLINN 2001; 285(19):0681-1810 HDL 39(L) >=40 mg/dL [facility] Comment: Reference range: ??Low HDL: ?? < 40 mg/dL ??Normal: ?40-60 mg/dL ??Desirable: > 60 mg/dL AISLINN 2001; 285(19):3675-2859 LDL Cholesterol 126(H) <=99 mg/dL [facility] Comment: Reference range: ?? Optimal: ?<100 mg/dL ?? Near Optimal/Above Optimal: ?? 100-129 mg/dL ?? Borderline high: ?130-159 mg/dL ?? High: ? 160-189 mg/dL ?? Very high: ?>na=327 mg/dL AISLINN 2001: 285(19):2444-0587 Chol/HDL Ratio 5.1 ratio [facility] Comment: A Cholesterol to HDL ratio below 4:1 is desirable. ??Studies suggest that increased CAD risk occurs at ratios above 5 for females and above 6 for men. ? [place] Heart Association ??(http://www.americanheart.org) ? Rehana Int Med, 1994; 121:641 ? AM J Med, 1998; 105(1A):48S Blood specimen (specimen) 07/11/2015 4:35 AM EDT 07/11/2015 4:42 AM EDT Narrative Resulting Agency Comment Spec In Lab Ezequiel Avilez MD CHEMISTRY ORDERABLES [facility] [place] [address] * (ABNORMAL) BMP w/fasting Glucose (07/11/2015 4:35 AM EDT) Glucose Fasting 100(H) 65 - 99 mg/dL [facility] Comment: ?Fasting* Glucose Interpretive Criteria Normal [...] of Diabetes Mellitus, Position Statement from the [place] Diabetes Association. ??Diabetes Care, Volume 33, Supplement 1, Apr 2009 BUN 14 10 - 20 mg/dL [facility] Creatinine 1.09 0.80 - 1.50 mg/dL [facility] Comment: Please note that the pediatric reference intervals supplied above were not validated at [facility] [place] [place]. Results from pediatric patients should be interpreted in conjunction to the patient's age, height and muscle mass. Sodium 141 135 - 145 mmol/L [facility] Potassium 4.2 3.5 - 5.0 mmol/L [facility] Comment: Please note: ??Patients with WBC >100,000 may have falsely elevated Potassium levels. ??For accurate Potassium quantification in these patients send serum separator tube (gold top) for subsequent determinations. ??Contact the Clinical Chemistry Laboratory if there are any questions. Chloride 104 98 - 107 mmol/L [facility] CO2 25 22 - 31 mmol/L [facility] Anion Gap 12 5 - 15 mmol/L [facility] Calcium 8.6 8.5 - 10.5 mg/dL [facility] Estimated GFR >60 >=60 [facility] Comment: This estimated GFR [...] the following links into your internet browser. [email or web address] Blood specimen (specimen) 07/11/2015 4:35 AM EDT 07/11/2015 4:42 AM EDT Narrative Resulting Agency Comment Spec In Lab Ezequiel Avilez MD CHEMISTRY ORDERABLES Performing Organization Address [facility] Co de Phone Number [facility] [place] [address] * Cardiac Enzymes (07/11/2015 4:35 AM EDT) Troponin-T <0.03 <=0.03 ng/mL [facility] Comment: 0.03 ng/mL: Represents the 99th percentile upper reference limit for normals. >0.03 ng/mL: Elevated cardiac troponin T level indicative of myocardial damage. Diagnosis of acute, evolving or recent PA requires a typical rise and gradual fall [...] consensus document of the Joint Society of Cardiology/[place] College [employer] Cardiology Committee for the redefinition of myocardial infarction. ??Journal of the [place] College of Cardiology 2000; 36: 959-969] CK, Total 116 0 - 200 unit/L [facility] Blood specimen (specimen) 07/11/2015 4:35 AM EDT 07/11/2015 4:42 AM EDT Narrative Resulting Agency Comment Spec In Lab Ezequiel Avilez MD CHEMISTRY ORDERABLES Performing Organization Address [facility] Co de Phone Number [facility] [place] [address] * EKG 12 Lead (07/10/2015 1:57 PM EDT) Ventricular rate 74 BPM MUSE SYSTEM Atrial Rate 74 BPM MUSE SYSTEM P-R Interval 178 ms MUSE SYSTEM QRS Duration 100 ms MUSE SYSTEM Q-T Interval 394 ms MUSE SYSTEM QTC Calculated (Bezet) 437 ms MUSE SYSTEM Calculated P Garfield 31 degrees MUSE SYSTEM Calculated R Garfield 7 degrees MUSE SYSTEM Calculated T Garfield 3 degrees MUSE SYSTEM INTERPRETATION Normal sinus rhythm Nonspecific T wave abnormality Inferior leads Abnormal ECG Confirmed by MD Ezequiel, Ezekiel ([id number]) on 07/11/2015 1:13:39 PM MUSE SYSTEM 07/10/2015 1:57 PM EDT 07/11/2015 1:13 PM EDT Ezequiel Avilez MD ECG ORDERABLES MUSE SYSTEM * Cardiac Enzymes (07/10/2015 1:15 PM EDT) Pathologist [facility] Troponin-T <0.03 <=0.03 ng/mL [facility] Comment: 0.03 ng/mL: Represents the 99th percentile upper reference limit for normals. >0.03 ng/mL: Elevated cardiac troponin T level indicative of myocardial damage. Diagnosis of acute, evolving or recent PA requires a typical rise and gradual fall [...] consensus document of the Joint Society of Cardiology/[place] College [employer] Cardiology Committee for the redefinition of myocardial infarction. ??Journal of the [place] College of Cardiology 2000; 36: 959-969] CK, Total 106 0 - 200 unit/L [facility] Blood specimen (specimen) Venous Draw / Unknown 07/10/2015 1:15 PM EDT 07/10/2015 2:04 PM EDT Narrative Resulting Agency Comment Spec In Lab Ezequiel Avilez MD CHEMISTRY ORDERABLES Performing Organization Address City/[facility]/[place] [address] * Differential, Automated (07/10/2015 1:15 PM EDT) Neutrophils % 61.3 % [facility] Neutr Abs (ANC) 2.51 1.50 - 6.30 x10(3)/[facility] Lymphocytes % 30.0 % [facility] Lymphocytes Abs 1.2 1.0 - 3.6 x10(3)/[facility] Monocytes % 6.8 % [facility] Monocyte Abs 0.3 0.2 - 1.0 x10(3)/[facility] Eosinophils % 1.2 % [facility] Eosinophils Abs 0.0 0.0 - 0.5 x10(3)/[facility] Basophils % 0.5 % [facility] Basophils Abs 0.0 0.0 - 0.2 x10(3)/[facility] Immature Gran % 0.20 % [facility] Comment: Immature granulocytes(IG's)percentage and absolute count will include metamyelocytes, myelocytes, and promyelocytes. Blood smears from CBCs yielding IG's will be scanned manually for concordance. If this scan disagrees with the automated IG or if promyelocytes are noted, a manual differential will be performed. Geovanna Gran Abs 0.01 0.00 - 0.05 x10(3)/[facility] Blood specimen (specimen) 07/10/2015 1:15 PM EDT 07/10/2015 2:33 PM EDT Narrative Resulting Agency Comment Spec In Lab Ezequiel Avilez MD HEMATOLOGY ORDERABLE S Performing Organization Address City/[facility]/ZIP Co de Phone Number [facility] [place] [address] * (ABNORMAL) Hemogram (07/10/2015 1:15 PM EDT) Pathologist [facility] WBC 4.1 4.0 - 10.0 x10(3)/[facility] RBC 4.21(L) 4.63 - 6.08 x10(6)/[facility] Hemoglobin 13.3(L) 13.7 - 17.5 gm/dL [facility] Hematocrit 39.9(L) 40.0 - 51.0 % [facility] MCV 94.8(H) 79.0 - 92.0 fL [facility] MCH 31.6 25.6 - 32.2 pg [facility] MCHC 33.3 32.0 - 36.5 gm/dL [facility] Platelets 233 145 - 370 x10(3)/[facility] RDWSD 43.0 35.0 - 46.0 fL [facility] RDWCV 12.5 10.9 - 14.4 % [facility] MPV 10.2 9.0 - 12.0 fL [facility] Blood specimen (specimen) 07/10/2015 1:15 PM EDT 07/10/2015 2:33 PM EDT Narrative Resulting Agency Comment Spec In Lab Ezequiel Avilez MD HEMATOLOGY ORDERABLE S [facility] [place] [address] * (ABNORMAL) Comprehensive metabolic panel (non-fasting) (07/10/2015 1:15 PM EDT) [facility] Glucose Lvl 96 65 - 199 mg/dL [facility] Comment:Diabetes: >=200 mg/d L plus symptoms BUN 15 10 - 20 mg/dL [facility] Creatinine 0.96 0.80 - 1.50 mg/dL [facility] Comment: Please note that the pediatric reference intervals supplied above were not validated at [facility] [place] [place]. Results from pediatric patients should be interpreted in conjunction to the patient's age, height and muscle mass. Sodium 137 135 - 145 mmol/L [facility] Potassium 4.4 3.5 - 5.0 mmol/L [facility] Comment: Please note: ??Patients with WBC >100,000 may have falsely elevated Potassium levels. ??For accurate Potassium quantification in these patients send serum separator tube (gold top) for subsequent determinations. ??Contact the Clinical Chemistry Laboratory if there are any questions. Chloride 102 98 - 107 mmol/L [facility] CO2 22 22 - 31 mmol/L [facility] Anion Gap 13 5 - 15 mmol/L [facility] Calcium 8.1(L) 8.5 - 10.5 mg/dL [facility] Total Protein 6.0(L) 6.1 - 8.0 gm/dL [facility] Albumin 3.5 3.2 - 5.2 gm/dL [facility] AST 16 0 - 39 unit/L [facility] ALT 24 0 - 55 unit/L [facility] Alk Phos 41 40 - 120 unit/L [facility] Total Bilirubin 0.3 0.2 - 1.3 mg/dL [facility] Bili, Direct 0.1 0.0 - 0.3 mg/dL [facility] Estimated GFR >60 >=60 [facility] Comment: This estimated GFR [...] the following links into your internet browser. [email or web address] [email or web address] Blood specimen (specimen) 07/10/2015 1:15 PM EDT 07/10/2015 2:04 PM EDT Narrative Resulting Agency Comment Spec In Lab Ezequiel Avilez MD CHEMISTRY ORDERABLES Performing Organization Address [facility] Co de Phone Number [facility] [place] [address] * (ABNORMAL) Prothrombin Time (07/10/2015 1:15 PM EDT) PT 16.3(H) 12.0 - 15.0 sec [facility] Comment: An INR <2.0 [...] clinical circumstances. INR 1.3(H) 0.9 - 1.1 [facility] Blood specimen (specimen) 07/10/2015 1:15 PM EDT 07/11/2015 9:39 AM EDT Narrative Resulting Agency Comment Spec In Lab Ezequiel Avilez MD HEMATOLOGY ORDERABLE S Performing Organization Address [facility] Co de Phone Number [facility] [place] [address] * EKG 12 Lead (07/10/2015 11:00 AM EDT) Ventricular rate 100 BPM MUSE SYSTEM Atrial Rate 100 BPM MUSE SYSTEM P-R Interval 174 ms MUSE SYSTEM QRS Duration 96 ms MUSE SYSTEM Q-T Interval 340 ms MUSE SYSTEM QTC Calculated (Bezet) 438 ms MUSE SYSTEM Calculated P Garfield 32 degrees MUSE SYSTEM Calculated R Garfield 22 degrees MUSE SYSTEM Calculated T Garfield -13 degrees MUSE SYSTEM INTERPRETATION Poor data quality Normal sinus rhythm Cannot rule out Inferior infarct , age undetermined Abnormal ECG When compared with ECG of 25-JUN-2015 10:35, Minimal criteria for Inferior infarct are now Present Confirmed by MD MELINDA, PRISCILLA ([id number]) on 07/10/2015 3:38:41 PM MUSE SYSTEM 07/10/2015 11:0 0 AM EDT 07/10/2015 3:38 PM EDT Ezequiel Avilez MD ECG ORDERABLES CASTALIA SYSTEM documented in this encounter Visit Diagnoses Diagnosis ASCVD (arteriosclerotic cardiovascular disease) Unspecified cardiovascular disease ASCVD (arteriosclerotic cardiovascular disease) Unspecified cardiovascular disease documented in this encounter Admitting Diagnoses Diagnosis CAD (coronary artery disease) Coronary atherosclerosis of unspecified type of vessel, [place] or graft documented in this encounter Administered Medications Inactive Administered Medications - up to 3 most recent administrations Medication Order MAR Action Action Date Dose Rate Site alum-mag hydroxide-simeth (MAALOX) 200-200-20 mg/5 mL oral suspension 1 dose, Starting on Mon07/10/15 at 1342, Until Mon07/10/15 at 1340, CASSIE LANGBURY: cabinet override Given 07/10/2015 1:40 PM EDT 30 mLs aspirin chewable tablet ONCE PRN, Starting on Mon07/10/15 at 1315, Until Mon07/10/15 at 1347, Cath (Intra-Procedure), Routine Given 07/10/2015 1:15 PM EDT 81 mg aspirin EC tablet 81 mg 81 mg, Oral, DAILY, First dose on Mon07/10/15 at 1900, Until Discontinued, Routine Given 07/10/2015 9:15 PM EDT 81 mg clopidogrel (PLAVIX) tablet 75 mg 75 mg, Oral, DAILY, First dose on Mon07/11/15 at 0900, Until Discontinued, Routine Given 07/11/2015 8:27 AM EDT 75 mg clopidogrel (PLAVIX) tablet ONCE PRN, Starting on Mon07/10/15 at 1229, Until Mon07/10/15 at 1742, Intra-Operative (Intra-Procedure), Routine Given 07/10/2015 12:29 PM EDT 600 mg fentaNYL 50 mcg/mL multi-dose injection ONCE PRN, Starting on Mon07/10/15 at 1202, Until Mon07/10/15 at 1742, Intra-Operative (Intra-Procedure), Routine Given 07/10/2015 12:55 PM EDT 25 mcg Left Arm Given 07/10/2015 12:07 PM EDT 50 mcg L eft Arm Given 07/10/2015 12:02 PM EDT 50 mcg L eft Arm heparin (porcine) injection ONCE PRN, Starting on Mon07/10/15 at 1213, Until Mon07/10/15 at 1347, Cath (Intra-Procedure), Routine Given 07/10/2015 12:28 PM EDT 2,000 Units Left Arm Given 07/10/2015 12:13 PM EDT 8,000 Units Left Arm lidocaine (XYLOCAINE) 10 mg/mL (1 %) injection 3 mg 3 mg (0.3 mL), Subcutaneous, ONCE PRN, 1 dose, Starting on Mon07/10/15 at 1048, Until Mon07/10/15 at 1120, with discomfort with PIV insertion, Cath (Day of Procedure), Routine Given 07/10/2015 11:20 AM EDT 3 mg midazolam (PF) (VERSED) 1 mg/mL multi-dose injection ONCE PRN, Starting on Mon07/10/15 at 1202, Until Mon07/10/15 at 1347, Cath (Intra-Procedure), Routine Given 07/10/2015 12:55 PM EDT 1 mg Left Arm Given 07/10/2015 12:07 PM EDT 1 mg L eft Arm Given 07/10/2015 12:02 PM EDT 1 mg L eft Arm nitroGLYcerin 100 mcg/mL intracoronary dilution ONCE PRN, Starting on Mon07/10/15 at 1211, Until Mon07/10/15 at 1347, Cath (Intra-Procedure), Routine Given 07/10/2015 1:10 PM EDT 100 mcg Given 07/10/2015 12:11 PM EDT 175 mcg sodium chloride 0.9% infusion 50 mL/hr, Intravenous, CONTINUOUS, Starting on Mon07/10/15 at 1115, Until Mon07/10/15 at 1742, Cath (Day of Procedure) New Bag 07/10/2015 11:29 AM EDT 50 mL/hr 50 mL/hr sodium chloride 0.9% infusion CONTINUOUS PRN, Starting on Mon07/10/15 at 1215, Until Mon07/10/15 at 1347, Cath (Intra-Procedure) New Bag 07/10/2015 12:15 PM EDT 250 mLs Left Arm sodium chloride 0.9% infusion 100 mL/hr, Intravenous, CONTINUOUS, Starting on Mon07/10/15 at 1415, Until Mon07/11/15 at 0014, Recovery (Recovery-Hospital Unit) New Bag 07/10/2015 1:58 PM EDT 100 mL/hr 100 mL/hr verapamil (ISOPTIN) injection ONCE PRN, Starting on Mon07/10/15 at 1211, Until Mon07/10/15 at 1347, Administer over 2 Minutes, Cath (Intra-Procedure) Given 07/10/2015 12:11 PM EDT 2.5 mg documented in this encounter Active and [...] Shoshana Stokes RN)1207 (Given - Provider: Shoshana Stokes RN)1255 (Given - Provider: Shoshana Stokes [...] Shoshana Stokes RN)1207 (Given - Provider: Shoshana Stokes RN)1255 (Given - Provider: Shoshana Stokes RN) nitroGLYcerin (NITROSTAT) SL tablet 0.4 mg 0.4 mg, Sublingual, EVERY 5 MIN PRN, Starting on 07/10/15 at 1753, Until 07/11/15 at 1107, Chest pain, May repeat every [...] cabinet override 1340 (Given - Provider: Cassie Mccormick, MICHAELA) documented in this encounter Care Teams School Inspector Relationship Specialty Start Date End Date Phoenix Thomas DO [address] [place] [address] [place] [address] PCP - General General Internal Medicine 02/20/15 documented as of this encounter
--- OUTSIDE RECORDS SUMMARY | 2023-10-23 09:10 | XMS_ITS | Encounter Summary ---
[place] [address] Care Team Providers Care Color Coater Name Role Phone Jovani Lucero MD Primary Care Provider [phone] Encounter Details Date Type Department Care Team (Late st Contact Info) Description 03/18/2013 Telephone [place] [address] Jerel Quintanilla MD [facility] [place] [address] Social History Tobacco Use Types Packs/Day Years Used Date Smoking Tobacco: Former Cigarettes Q uit: 01/11/2001 Alcohol Use Standard Drinks/Week Comments Yes 0 (1 standard drink = 0.6 oz pur e alcohol) 6 pack a week Sex and Gender Information Value Date Recorded Sex Assigned at Not on file Gender Identity Not on file Sexual Orientation Not on file documented as of this encounter Miscellaneous Notes * Telephone Encounter - Marivel Padron - 03/18/2013 9:33 AM EST Lmom#1 for a follow-up appointment with Dr. Quintanilla's PA's. documented in this encounter Plan of Treatment Upcoming Encounters Date Type Department Care Team (Late st Contact Info) Description 10/31/2023 9:15 AM EDT Office Visit Dermatology at [facility] [address] [place] [address] Dawson Broderick MD [facility] [place] [address] 07/23/2024 9:30 AM EDT Office Visit Dermatology at [facility] [address] [place] [address] Dawson Broderick MD [facility] [place] [address] documented as of this encounter Visit Diagnoses Not on filedocumented in this encounter Care Teams Color Coater Relationship Specialty Start Date End Date Jovani Lucero MD [address] [place] [address] [place] [address] PCP - General 02/23/10 02/19/15 documented as of this encounter
--- OUTSIDE RECORDS SUMMARY | 2023-10-23 09:10 | XMS_ITS | Encounter Summary ---
[place] [address] Care Team Providers Care Travel Ticketing Reviewer Name Role Phone DevantePhoenix orozco Susan MCDOWELL Primary Care Provider [phone] Reason for Visit * Diagnostic Test (Routine) - Closed Specialty Diagnoses / Procedures Referred By Omid shepherd Referred To Contact Radiology Diagnoses Regional wall motion abnormality of heart Procedures NM myocardial perfusion scan, pharmacologic Walter Rae MD [facility] [place] [address] [place] [address] Referral ID Status Reason Start Date Expiration Date V isits Requested Visits Authorized [id number] Closed Specialty Service Requested 06/25/2015 06/24/2016 1 1 Encounter Details Date Type Department Care Team (Latest Contact Info) Description 06/29/2015 8:51 AM EDT Hospital Encounter [place] [address] Walter Rae MD [facility] [place] [address] Discharge Disposition: Home Social History [...] at [facility] [address] [place] [address] Dawson Broderick MD [facility] [address] [place] [address] 07/23/2024 9:30 AM EDT Office Visit Dermatology at [facility] [address] [place] [address] Dawson Broderick MD [facility] [address] [place] [address] documented as of this encounter Procedures Procedure [...] Dose Rate Site technetium (Tc-99m) sestamibi injection 11.6 mCi 11.6 mCi, Intravenous, ONCE PRN, 1 dose, Starting on Mon06/29/15 at 0906, Until Mon06/29/15 at 0907, Per Protocol, Routine Given 06/29/2015 9:07 AM EDT 11.6 mCi documented in this encounter Care Teams Travel Ticketing Reviewer Relationship Specialty Start Date End Date Phoenix Guzmán DO [address] [place] [address] [place] [address] PCP - General General Internal Medicine 02/20/15 documented as of this encounter
--- OUTSIDE RECORDS SUMMARY | 2023-10-23 09:10 | XMS_ITS | Encounter Summary ---
[place] [address] Care Team Providers Care Commercial Technician Name Role Phone Phoenix Guzmán DO Primary Care Provider [phone] Encounter Details Date Type Department Care Team (Latest Contact Info) Description 06/29/2015 8:52 AM EDT Hospital Encounter Non[place] [address] Walter Rae MD [facility] [place] [address] Regional wall motion abnormality of heart Discharge Disposition: Home Social History Tobacco Use [...] Dermatology at [facility] [address] [place] [address] Dawson Broderick MD [facility] [address] [place] [address] 07/23/2024 9:30 AM EDT Office Visit Dermatology at [facility] [address] [place] [address] Dawson Broderick MD [facility] [address] [place] [place] [address] documented as of this encounter Procedures Procedure Name Priority Date/Time Associated Diagnosis Comments NUCLEAR PHARMACOLOGIC STRESS CARDIOLOGY Routine 06/29/2015 10:34 AM EDT Regional wall motion abnormality of heart documented in this encounter Results * Nuclear Pharmacologic Stress Cardiology (06/29/2015 10:34 AM EDT) Anatomical Region Laterality Modality Other Walter Rae MD [facility] ORD ERABLES documented in this encounter Visit Diagnoses Diagnosis Regional wall motion abnormality of heart Nonspecific (abnormal) findings on radiological and other examination of other intrathoracic organs documented in this encounter Care Teams Commercial Technician Relationship Specialty Start Date End Date Phoenix Guzmán DO [address] [place] [address] [place] [address] PCP - General General Internal Medicine 02/20/15 documented as of this encounter
--- OUTSIDE RECORDS SUMMARY | 2023-10-23 09:10 | XMS_ITS | Encounter Summary ---
[place] [address] Care Team Providers Care Roof Fitter Name Role Phone Phoenix Guzmán Primary Care Provider [phone] Reason for Referral * Diagnostic Test (Routine) - Closed Specialty Diagnoses / Procedures Referred By Contac t Referred To Contact Radiology Diagnoses Regional wall motion abnormality of heart Procedures NM myocardial perfusion scan, pharmacologic Walter Rae MD [facility] [place] [address] [place] [address] Referral ID Status Reason Start Date Expiration Date V isits Requested Visits Authorized [id number] Closed Specialty Service Requested 06/25/2015 06/24/2016 1 1 Reason for Visit * Diagnostic Test (Routine) - Closed Specialty Diagnoses / Procedures Referred By Contac t Referred To Contact Radiology Diagnoses Regional wall motion abnormality of heart Procedures NM myocardial perfusion scan, pharmacologic Walter Rae MD [facility] [place] [address] [facility] [place] [address] Referral ID Status Reason Start Date Expiration Date V isits Requested Visits Authorized [id number] Closed Specialty Service Requested 06/25/2015 06/24/2016 1 1 Encounter Details Date Type Department Care Team (Latest Contact Info) Description 06/29/2015 8:50 AM EDT Hospital Encounter [place] [address] Walter Rae MD [facility] [place] [address] Regional wall motion abnormality of heart Discharge [...] 9:15 AM EDT Office Visit Dermatology at [facility] [address] [place] [address] Dawson Broderick MD [facility] [place] [address] 07/23/2024 9:30 AM EDT Office Visit Dermatology at [facility] [address] [place] [address] Dawson Broderick MD [facility] [place] [address] documented as of this encounter Procedures Procedure Name Priority Date/Time Associated Diagnosis Comments PFT SCAN 07/02/2015 12:00 AM EDT NM PHARMACOLOGIC STRESS AND REST MYOCARDIAL PERFUSION Routine 06/29/2015 11:16 AM EDT Regional wall motion abnormality of heart documented in this encounter Results * SCAN DOC: PFT (07/02/2015 12:00 AM EDT) Scanning Provider MEDIA MGR SCAN EXT O RDR/RSLT * NM myocardial perfusion scan, pharmacologic (06/29/2015 11:16 AM EDT) Anatomical Region Laterality Modality Nuclear Medicine Impressions 06/29/2015 12:22 PM EDT IMPRESSION: 1. Stress-induced ischemia is strongly suspected in the mid to distal inferolateral wall with a probable scar component in the basal inferolateral wall. 2. Hypokinesis of the proximal to mid inferolateral wall. LVEF is 51%. Narrative 06/29/2015 12:22 PM EDT EXAMINATION: NM MYOCARDIAL PERFUSION SCAN, PHARMACOLOGIC CLINICAL HISTORY: abnormal wall motion by echo TECHNIQUE: During rest, 11.6 mCi of technetium-99m sestamibi was administered intravenously. Approximately 20 minutes later, SPECT images of the heart were obtained with reconstruction in the short, vertical long and horizontal long axis. The patient then received regadenoson intravenously at a dose of 0.4 mg. 20 seconds later, 40.4 mCi of technetium-99m sestamibi was administered intravenously. Images of the heart were then again obtained with SPECT reconstruction. A low-dose CT scan was acquired for the purpose of attenuation correction COMPARISON: None FINDINGS: A moderately severe predominantly reversible perfusion defect is present in the mid to distal inferolateral wall with a small fixed perfusion defect in the basal portion of the inferolateral wall. Normal perfusion all other regions of the LV myocardium on stress and rest images. Functional analysis: Myocardial function: Hypokinesis of the proximal to mid inferolateral wall. Left ventricular ejection fraction: 51 % (normal greater than than 50%). Procedure Note Eladio Balderas MD - 06/29/2015 EXAMINATION: NM MYOCARDIAL PERFUSION SCAN, PHARMACOLOGIC CLINICAL HISTORY: abnormal wall motion by echo TECHNIQUE: During rest, 11.6 mCi of technetium-99m sestamibi wasadministered intravenously. Approximately 20 minutes later, SPECT images of the heartwere obtained with reconstruction in the short, vertical long and horizontallong axis. The patient then received regadenoson intravenously at a dose of 0.4 mg.20 seconds later, 40.4 mCi of technetium-99m sestamibi was administered intravenously. Images of the heart were then again obtained with SPECT reconstruction. A low-dose CT scan was acquired for the purpose of attenuationcorrection COMPARISON: None FINDINGS: A moderately severe predominantly reversible perfusion defect is presentin the mid to distal inferolateral wall with a small fixed perfusion defect inthe basal portion of the inferolateral wall. Normal perfusion all otherregions of the LV myocardium on stress and rest images. Functional analysis: Myocardial function: Hypokinesis of the proximal to mid inferolateralwall. Left ventricular ejection fraction: 51 % (normal greater than than 50%). IMPRESSION IMPRESSION: 1. Stress-induced ischemia is strongly suspected in the mid to distal inferolateral wall with a probable scar component in the basalinferolateral wall. 2. Hypokinesis of the proximal to mid inferolateral wall. LVEF is 51%. Walter Rae MD IMG NM ORDERABLES documented in this encounter Visit Diagnoses Diagnosis Regional wall motion abnormality of heart Nonspecific (abnormal) findings on radiological and other examination of other intrathoracic organs documented in this encounter Care Teams Roof Fitter Relationship Specialty Start Date End Date Phoenix Guzmán DO [address] [place] [address] [place] [address] PCP - General General Internal Medicine 02/20/15 documented as of this encounter
--- OUTSIDE RECORDS SUMMARY | 2023-10-23 09:10 | XMS_ITS | Encounter Summary ---
Author Organization [facility] [place] [address] Care Team Providers Care Supervisor Ticket Sales Name Role Phone Jovani Lucero MD Primary Care Provider Encounter Details Date Type Department Care Team (Late st Contact Info) Description 10/27/2011 Orders [place] [address] Jerel Quintanilla MD [facility] [place] [address] S/P hip replacement (Primary Dx) Social History Tobacco Use Types [...] [facility] [address] [place] [address] Dawson Broderick MD [facility] DR [place] [address] 07/23/2024 9:30 AM EDT Office Visit Dermatology at [facility] [address] [place] [phone] Dawson Broderick MD [facility] [place] [id number] documented as of this encounter Results * XR pelvis and lateral hip (01/12/2012 1:49 PM EDT) Anatomical Region Laterality Modality Pelvis, Hip N/A Radiographic Karolina ging 01/12/2012 1:49 PM EDT Narrative 01/12/2012 4:03 PM EDT Examination PELVIS+LATERAL HIP/RIGHT Clinical History Reason for exam and clinical history: 2Y F/U R ELZBIETA DOS 11/06/96; Comparison 10/29/2009. Technique AP view of the lower pelvis and lateral views of each hip compared to prior exam. Findings Patient is status post right total hip arthroplasty. ??There is lucency seen lateral to the femoral stem which is unchanged from prior exam. ??There is asymmetric poly wearing again seen. ??There is minimal degenerative change in the left hip. 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 2 areas of lucency along the lateral aspect of the femoral stem, seen on prior exam, unchanged, rule out osteolysis. Procedure Note Chiara Newton MD - 01/12/2012 Examination PELVIS+LATERAL HIP/RIGHT Clinical History Reason for exam and clinical history: 2Y F/U R ELZBIETA DOS 11/06/96; Comparison 10/29/2009. Technique AP view of the lower pelvis and lateral views of each hip compared toprior exam. Findings Patient is status post right total hip arthroplasty. There is lucencyseen lateral to the femoral stem which is unchanged from prior exam. There is asymmetric poly wearing again seen. There is minimal degenerative changein the left hip. 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 2 areas of lucency along the lateral aspect of the femoral stem, seen onprior exam, unchanged, rule out osteolysis. Jerel Quintanilla MD IMG DX ORDERABLES documented in this encounter Visit Diagnoses Diagnosis S/P hip replacement- Primary Hip joint replacement by other means S/P hip replacement Hip joint replacement by other means documented in this encounter Care Teams Supervisor Ticket Sales Relationship Specialty Start Date End Date Jovani Lucero MD [address] [place] [address] [place] [address] PCP - General 02/23/10 02/19/15 documented as of this encounter
--- OUTSIDE RECORDS SUMMARY | 2023-10-23 09:10 | XMS_ITS | Encounter Summary ---
Author Organization Formerly [facility] Address [facility] [place] [address] Care Team Providers Care Ict Business Analyst Name Role Phone Phoenix Guzmán DO Primary Care Provider [phone] Encounter Details Date Type Department Care Team (Latest Contact Info) Description 04/16/2015 9:00 AM EST Hospital Encounter XRay at [address] [place] [address] Jerel Quintanilla MD [facility] [place]THOPAEDIC [place] [address] Bilateral knee pain Discharge Disposition: Home Social History Tobacco [...] See Admin Instructions. Reported on 07/28/2016 04/13/2015 pravastatin (PRAVACHOL) 10 mg Tablet Take 1 tablet by mouth daily. 04/06/2015 07/11/2015 aspirin 81 mg EC tablet Take 81 mg by mouth daily. 09/22/2016 documented as of this encounter Plan of Treatment Upcoming Encounters Date Type Department Care Team (Late st Contact Info) Description 10/31/2023 9:15 AM EDT Office Visit Dermatology at [facility] [address] [place] [address] Dawson Broderick MD [facility] [address] [place] [address] 07/23/2024 9:30 AM EDT Office Visit Dermatology at [facility] [address] [place] [address] Dawson Broderick MD [facility] [place] [address] documented as of this encounter Procedures Procedure Name Priority Date/Time Associated Diagnosis Comments XR JOINT TEAM STANDING ALIGNMENT AP LAT SCHUSS SKYLINE BILAT Routine 04/16/2015 9:35 AM EST Bilateral knee pain documented in this encounter Results * XR Joint Team Standing Alignment AP Lat Schuss [place] Bilateral (04/16/2015 9:35 AM EST) Anatomical Region Laterality Modality Bilateral Digital Radiogra phy Impressions 04/16/2015 10:41 AM EST IMPRESSION: 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 Narrative 04/16/2015 10:41 AM EST EXAMINATION: XR JOINT TEAM STANDING ALIGNMENT AP LAT SCHUSS SKYLINE BILATERAL CLINICAL HISTORY: BILATERAL KNEE PAIN TECHNIQUE: Separate images of the pelvis, knees and feet were acquired in the AP projection with the patient standing. These images were stitched together to form a composite image of the pelvis and legs allowing for evaluation of lower extremity alignment in the weight bearing position. Four additional views of the knee were taken. COMPARISON: Pelvis x-rays 01/12/2012 FINDINGS: The standing alignment study again documents the presence of a right total hip arthroplasty. As seen on the patient's earlier pelvis films there is asymmetric polyethylene wear. No obvious loosening or osteolysis is apparent on this examination. Medial displacement of the mechanical axis is present bilaterally. Laterally is incorrectly marked on the Elaine view. I have annotated the images with appropriate side marking using the standing alignment study of the lower extremities for comparison At the patellofemoral compartment bilaterally there are large marginal osteophytes and there is joint space narrowing at the medial aspect of the right patellofemoral compartment. Small joint effusions are present bilaterally. Severe medial compartment joint space narrowing is present bilaterally. The degree of narrowing and associated osteophyte formation is more pronounced at the right knee compared to the left. Large marginal osteophytes are present throughout Procedure Note Ezekiel Juares MD - 04/16/2015 EXAMINATION: XR JOINT TEAM STANDING ALIGNMENT AP LAT SCHUSS SKYLINEBILATERAL CLINICAL HISTORY: BILATERAL KNEE PAIN TECHNIQUE: Separate images of the pelvis, knees and feet were acquired inthe AP projection with the patient standing. These images were stitched togetherto form a composite image of the pelvis and legs allowing for evaluation oflower extremity alignment in the weight bearing position. Four additional viewsof the knee were taken. COMPARISON: Pelvis x-rays 01/12/2012 FINDINGS: The standing alignment study again documents the presence of aright total hip arthroplasty. As seen on the patient's earlier pelvis filmsthere is asymmetric polyethylene wear. No obvious loosening or osteolysis isapparent on this examination. Medial displacement of the mechanical axis is present bilaterally. Laterally is incorrectly marked on the Elaine view. I have annotatedthe images with appropriate side marking using the standing alignment study ofthe lower extremities for comparison At the patellofemoral compartment bilaterally there are large marginal osteophytes and there is joint space narrowing at the medial aspect of theright patellofemoral compartment. Small joint effusions are present bilaterally. Severe medial compartmentjoint space narrowing is present bilaterally. The degree of narrowing andassociated osteophyte formation is more pronounced at the right knee compared to theleft. Large marginal osteophytes are present throughout IMPRESSION IMPRESSION: Severe osteoarthritis bilaterally with secondary varus deformity of thelower extremities. Jerel Quintanilla MD IMG DX ORDERABLES documented in this encounter Visit Diagnoses Diagnosis Bilateral knee pain Pain in joint, lower leg documented in this encounter Care Teams Ict Business Analyst Relationship Specialty Start Date End Date Phoenix Guzmán DO [address] [place] [address] [place] [address] PCP - General General Internal Medicine 02/20/15 documented as of this encounter
--- OUTSIDE RECORDS SUMMARY | 2023-10-23 09:10 | XMS_ITS | Encounter Summary ---
Author Organization Formerly [facility] [place] [address] Care Team Providers Care Risk Assessment Consultant Name Role Phone Jovani Lucero MD Primary Care Provider [phone] Encounter Details Date Type Department Care Team (Latest Contact Info) Description 01/12/2012 1:25 PM EDT - 01/12/2012 11:59 PM EDT Hospital Encounter XRay at [address] [place] [address] S/P hip replacement Social History Tobacco Use Types [...] Sig Dispensed Refills Start Date End Date aspirin 81 mg EC tablet Take 81 mg by mouth daily. 09/22/2016 simvastatin (ZOCOR) 80 mg tablet 10/29/2009 05/02/2013 documented as of this encounter Plan of Treatment Upcoming Encounters Date Type Department Care Team (Late st Contact Info) Description 10/31/2023 9:15 AM EDT Office Visit Dermatology at [facility] [address] [place] [address] Dawson Broderick MD [facility] DR [address] [place] [address] 07/23/2024 9:30 AM EDT Office Visit Dermatology at [facility] [address] [place] [address] Dawson Broderick MD [facility] [place] [address] documented as of this encounter Procedures Procedure Name Priority Date/Time Associated Diagnosis Comments XR PELVIS AND LATERAL HIP Routine 01/12/2012 1:49 PM EDT S/P hip replacement documented in this encounter Results * XR pelvis and [...] this encounter Visit Diagnoses Diagnosis S/P hip replacement Hip joint replacement by other means documented in this encounter Care Teams Risk Assessment Consultant Relationship Specialty Start Date End Date Jovani Lucero MD [address] [place] [address] [place] [address] PCP - General 02/23/10 02/19/15 documented as of this encounter
--- OUTSIDE RECORDS SUMMARY | 2023-10-23 09:10 | XMS_ITS | Encounter Summary ---
Author Organization [facility] [place] [address] Care Team Providers Care Commanding Officer Traffic Division Name Role Phone Phoenix Guzmán DO Primary Care Provider [phone] Encounter Details Date Type Department Care Team (Late st Contact Info) Description 06/10/2015 [place] [address] Lou Bernard Social History Tobacco Use Types [...] encounter Progress Notes * Lou Rao - 06/10/2015 12:18 PM EST Pt was sent packet of information cc [...] Visit Dermatology at [facility] [address] [place] [address] Dawson Broderick MD [facility] [place] [address] 07/23/2024 9:30 AM EDT Office Visit Dermatology at [facility] [address] [place] [address] Dawson Broderick MD [facility] [place] [address] documented as of this encounter Visit Diagnoses Not on filedocumented in this encounter Care Teams Commanding Officer Traffic Division Relationship Specialty Start Date End Date Phoenix Guzmán DO [address] [place] [address] [place] [address] PCP - General General Internal Medicine 02/20/15 documented as of this encounter
--- OUTSIDE RECORDS SUMMARY | 2023-10-23 09:10 | XMS_ITS | Encounter Summary ---
[place] [address] Care Team Providers Care Steelscope Operator Name Role Phone DevantePohenix orozco Susan MCDOWELL Primary Care Provider [phone] Reason for Referral * Diagnostic Test (Routine) - Closed Specialty Diagnoses / Procedures Referred By Omid shepherd Referred To Contact Radiology Diagnoses Regional wall motion abnormality of heart Procedures NM myocardial perfusion scan, pharmacologic Walter Rae MD [facility] [address] [place] [address] [place] [address] Referral ID Status Reason Start Date Expiration Date V isits Requested Visits Authorized [id number] Closed Specialty Service Requested 06/25/2015 06/24/2016 1 1 Reason for Visit * Reason Comments Bilateral Knee Pain Encounter Details Date Type Department Care Team (Latest Contact Info) Description 06/25/2015 10:50 AM EDT Office [place] [address] Walter Rae MD [facility] [address] [place] [address] Primary osteoarthritis of both knees; Regional wall motion abnormality of heart Social History Tobacco Use Types Packs/Day Years [...] Sign Reading Time Taken Comments Blood Pressure 127/88 06/25/2015 11:07 AM EDT Pulse 108 06/25/2015 11:07 AM EDT Temperature - - Respiratory Rate - - Oxygen Saturation - - Inhaled Oxygen Concentration - - Weight 131.5 kg (290 lb) 06/25/2015 11:07 AM EDT verbal Height 182.2 cm (5' 11.75) 06/25/2015 11:07 AM EDT Body Mass Index 39.61 06/25/2015 11:07 AM EDT documented in this encounter Progress Notes * Ruben Sands RN - 06/25/2015 11:27 AM EDT Arthroplasty History/Previous Knee Surgery: 1. Right ELZBIETA 11/06/1996 This note is recorded by Ruben Sands RN acting as a scribe for Walter Rae MD. PREOPERATIVE VISIT Interval History: Gunnar Morin is a pleasant 70 y.o. year old male with severe osteoarthritis of both knees being seen today to discuss bilateral total knee arthroplasty. His history and physical exam were reviewedin detail. His history in regards to his knee was once again discussed and is outlined in my previous note. Hestates the knee pain and disability is unchanged since our previous visit. They have watched the shared decision video and at this point are expressing a desire to proceed with knee replacement. He does not endorse a history of DVT/PE or clotting He does not bleeding, anesthesia issues, metal sensitivity, diabetes Physical Exam: Exam is previously documented in my note and is essentially unchanged. Range of motion is 5-115 on the left and 5-115 on the right. Inspection of his skin on the operative leg demonstrates No skin breakdown. Significant Medical Comorbidities Patient Active Problem List Diagnosis Code ??? S/P total hip arthroplasty Z96.649 ??? Osteoarthritis of both knees M17.0 ??? Bilateral knee pain M25.561, M25.562 ??? Arthritis of knee M19.90 VITALS: BP Readings from Last 1 Encounters: 06/25/15 127/88 Pulse Readings from Last 1 Encounters: 06/25/15 108 Height: 182.2 cm (5' 11.75) Weight - Scale: (!) 131.543 kg (290 lb) (verbal) Body mass index is 39.63 kg/(m^2). Relevant Lab Studies Lab Results Component Value Date WBC 5.3 06/25/2015 HGB 15.2 06/25/2015 HCT 45.7 06/25/2015 PLATELET 258 06/25/2015 EKG: normal EKG, normal sinus rhythm, unchanged from previous tracings. Questionnaire Response [facility] Surgical Preop Visit 05/07/2015 PROMIS-10 General Health Very Good PROMIS-10 Quality of Life Very Good PROMIS-10 Physical Health Good PROMIS-10 Mental Health Very Good PROMIS-10 Social Activity Very Good PROMIS-10 Everyday Activities A little PROMIS-10 Pain 8 PROMIS-10 Fatigue Moderate PROMIS-10 Social Roles Very Good PROMIS-10 Anxious or Depressed Never PROMIS PHYSICAL SCORE (range 16-68) 34.9 PROMIS MENTAL SCORE (range 21-68) 56 Treatments Tried Acetaminophen (e.g. Tylenol), Over the counter anti- inflammatory drugs (e.g Advil,Aspirin, Aleve), Injection of steroids or cortisone [facility] Response 05/07/2015 KOOS-PS Scores 42 No flowsheet data found. Radiographic Anaysis: Together, we reviewed his radiographs obtained previously which demonstrate degenerative joint disease. Kellgren-Josiah Grade: 4= large osteophytes, marked narrowing, obvious deformity [0= normal; 1=minimal ; 2= some osteophytes , some narrowing ; 3= moderate osteophytes, significantnarrowing, mild deformity; 4= large osteophytes, marked narrowing, obvious deformity] Assessment and Plan: This is a pleasant 70 y.o. year-old male who presents for a preoperative appointment today for bilateral knee OA . I had a long discussion with him regarding the risks and benefits of bilateral totalknee arthroplasty. I indicated that in my opinion, this is the treatment option most likely to yajaira re a more normal, pain-free level of function and that we have exhausted reasonable non-operative alternatives. I used total knee implants to demonstrate how I perform the procedure and all of their questions were answered. Mr. Morin expressed a desire to pursue this option. We then discussed in great detail the risks associated with the proposed surgery. These included but were not limited to: bleeding (which may or may not require transfusion), infection, deep venous thrombosis, pulmonary embolus, prosthetic failure, loosening, prosthetic fracture, femur, tibia or patella fracture, dislocation, leg-length inequality, persistent pain, medical complications (including cardiac, respiratory and neurologic complications), anaesthetic complications, and . The patient seemed to understand the nature of this procedure's risks. We also discussed the likely benefit of improved stride length, improved range of motion, decreased pain, decreased need for pain medications and decrease functional limitations. The patient is aware that it would take on average of two days in the hospital, followed by approximately 12-18 months to full rehabilitation. I did review the history and physical today which says the patient is cleared for surgery pending nuclear stress test. I reviewed the labs and did not identify anything that would warrant surgical delay. We discussed DNR status and he is a Full Code We reviewed options for postoperative DVT prophylaxis, based on AAOS guidelines. We discussed the pros and cons of ASA vs. Coumadin in terms of effectiveness and clot / embolus preventions vs. risks of bleeding and wound complications. My review of the patient's risk factors leads me to believe that they are at high risk for a clot and low risk for a bleed. We will thus plan to use Coumadin for 4weeks postoperatively for DVT prophylaxis. We also reviewed their preferences regarding use of blood products and confirmed that while we would endeavor to minimize the risks of needing any transfusions, if circumstances were such that one ormore were indeed required, he would NOT refuse a blood transfusion. We discussed with them the possible discharge scenarios including going home versus needing to go to a rehab facility depending on how well their mobility progresses post-operatively. Their desire isto be discharged to Home. Any remaining questions were solicited from the patient and answered. Mr. Morin wishes to proceed accordingly and informed consent was subsequently obtained for a bilateral total knee arthroplasty. We discussed using Celebrex while in house. . I ensured that the patient has the needed samples of hibiclens wash to use both the night before and the morning of the anticipated surgery. I have personally evaluated the patient and agree with the above note as recorded by Ruben Sands RN. Walter Rae MD, MS 06/25/2015 documented in this encounter Plan of Treatment Upcoming Encounters Date Type Department Care Team (Late st Contact Info) Description 10/31/2023 9:15 AM EDT Office Visit Dermatology at [facility] [address] [place] [address] Dawson Broderick MD [facility] [place] [address] 07/23/2024 9:30 AM EDT Office Visit Dermatology at [facility] [address] [place] [address] Dawson Broderick MD [facility] [place] [address] documented as of this encounter Results * NM myocardial perfusion scan, pharmacologic (06/29/2015 [...] wall. LVEF is 51%. Walter Rae MD [facility] NM ORDERABLES * Nuclear Pharmacologic Stress Cardiology (06/29/2015 10:34 AM EDT) Anatomical Region Laterality Modality Other Walter Rae MD [facility] ORD ERABLES documented in this encounter Visit Diagnoses Diagnosis Primary osteoarthritis of both knees Primary localized osteoarthrosis, lower leg Regional wall motion abnormality of heart Nonspecific (abnormal) findings on radiological and other examination of other intrathoracic organs Regional wall motion abnormality of heart Nonspecific (abnormal) findings on radiological and other examination of other intrathoracic organs documented in this encounter Care Teams Steelscope Operator Relationship Specialty Start Date End Date Phoenix Guzmán DO [address] [place] [address] [place] [id number] PCP - General General Internal Medicine 02/20/15 documented as of this encounter
--- OUTSIDE RECORDS SUMMARY | 2023-10-23 09:10 | XMS_ITS | Encounter Summary ---
Author Organization [place] [id number] Care Team Providers Care Orthodontic Lab Technician Name Role Phone DevantePhoenix orozco Primary Care Provider [phone] Reason for Visit * Reason Comments Bilateral Knee Pain * Consultation (Routine) - Closed Specialty Diagnoses / Procedures Referred By Omid shepherd Referred To Contact Orthopaedics Diagnoses H/O total hip arthroplasty, unspecified laterality Primary osteoarthritis of both knees Jerel Quintanilla MD [facility] [place] [address] Adina Rae MD [facility] [place] [address] Referral ID Status Reason Start Date Expiration Date V isits Requested Visits Authorized [id number] Closed Consult, Test & Treat 04/16/2015 04/15/2016 1 1 Encounter Details Date Type Department Care Team (Latest Contact Info) Description 05/07/2015 9:00 AM EST Office [place] [address] Jerel Quintanilla MD [facility] [place] [address] Adina Rae MD [facility] [place] [address] Bilateral knee pain; Primary osteoarthritis of both knees; Pain in both lower extremities Social History Tobacco Use Types Packs/Day Years [...] Sign Reading Time Taken Comments Blood Pressure 140/85 05/07/2015 9:08 AM EST Pulse 100 05/07/2015 9:08 AM EST Temperature - - Respiratory Rate - - Oxygen Saturation - - Inhaled Oxygen Concentration - - Weight 118.4 kg (261 lb) 05/07/2015 9:08 AM EST clothed Height 182.9 cm (6') 05/07/2015 9:08 AM EST Body Mass Index 35.4 05/07/2015 9:08 AM EST documented in this encounter Progress Notes * Adina Rae MD - 05/07/2015 4:46 PM EST I have seen the patient and reviewed [facility] history/physical and I agree with the details as written. The assessment and plan were formulated in discussion with me and I agree with them asdocumented. Discussed with patient treatment options both nonoperative and operative for knee osteoarthritis. Idiscussed with patient that this progresses like climbing a ladder. I reviewed that at the initial steps of management we talked about nonsteroidal anti-inflammatory use, quad strengthening, flexibility, weight loss, non-impact cardiovascular activities, corticosteroid injections, and finally progressing to operative management in the form of total knee arthroplasty. I reviewed all modalities with the patient in general. Reviewed surgical technique of total knee arthroplasty, discussed potential benefits and risks of surgical intervention. Discussed the preoperative and postoperative care including need for DVT prophylaxis based upon AAOS guidelines. Reviewed risks which included but are not limited to infection, bl eeding, damage to blood vessels and nerves, fracture, failure to relieve pain, stiffness, loosening, subsidence, wearing away of the polyethylene, need for further surgery, heart attack, stroke, allergic reactions medicines, pneumonia, , blood clots. At this point, patient is interested in proceeding with bilateral total knee arthroplasty. Patient will see PCP for preoperative clearance, patient will contact us when he like to proceed in this manner. A booking was provided today. Adina Rae MD, MS 05/07/2015 * Rubina Mercado PA - 05/07/2015 9:36 AM EST Arthroplasty History/Previous Knee Surgery: 1. Right total hip arthroplasty 11/06/1996 Chief Complaint: Chief Complaint Patient presents with ??? Bilateral Knee Pain This patient was referred from Jerel Quintanilla MD [facility] [place] [address] I.D.: Gunnar Morin is a 70 y.o. year old male being seen today to discuss his bilateral knees with theboth knee being more symptomatic. His history and physical exam were reviewed in detail. He states the knee has been symptomatic for years. There was yes inciting trauma/injury. He underwent an ACL repair in the 1969's if the right knee. He does not describe hip pain. He does feel as if he walks with a limp. Aggravating factors include daily activity such as walking. . Alleviating factors are limited at this time. He has used injections with approximately 48 hours of relief. pain at night.. He can walk and does not use assistive devices. He climb stairs and does use the railing. He has not tried physical therapy. He has tried injections into the joint (last injection January 2015- with 48 hours of relief). He has tried NSAIDs. Mr. Morin denies fevers/chills/headache/chest pain/shortness of breath/abdominal pain/nausea or vomiting/weight changes He does not endorse a history of DVT/PE or clotting disorder. ASSOCIATED DIAGNOSES: He does reports problems with right hip and does have a history of spine or back issues. ALLERGIES Allergies Allergen Reactions ??? Amoxicillin Trihydrate Hives Allergies to metals: denies. SOCIAL HISTORY: reports that he quit smoking about 14 years ago. He has never used smokeless tobacco. He reports that he drinks alcohol. He reports that he does not use illicit drugs. Occupation: retired SIGNIFICANT MEDICAL COMORBIDITIES: Patient Active Problem List Diagnosis Code ??? S/P total hip arthroplasty Z96.649 ??? Osteoarthritis of both knees M17.0 ??? Bilateral knee pain M25.561, M25.562 VITALS: BP Readings from Last 1 Encounters: 05/07/15 140/85 Pulse Readings from Last 1 Encounters: 05/07/15 100 Height: 182.9 cm (6') Weight - Scale: (!) 118.389 kg (261 lb) (clothed) Body mass index is 35.39 kg/(m^2). PHYSICAL EXAM: Constitution: Patient sits in the clinic today in no apparent distress. The patient is alert and oriented x 3. Appearance is age-appropriate, affect is similarly appropriate. Head, ears, eyes, nose, throat: grossly normal. Anicteric, no apparant lymphadenopathy. Chest: Normal chest expansion with re gular inspiratory effort. No audible wheezing with regularly inspiratory effort. Cardiac: regular rate and rhythm by peripheral palpation. I have made the following determinations: Knee Exam: LEFT Prior surgery on this joint: No Gait Abnormality: Antalgic Knee ROM: Extension:5 Flexion: 115 Alignment: 0-4 degrees Varus Stability: A/P Translation <5mm Varus (lateral stability) <5mm Valgus (medial stability) <5mm Extension La degrees or less Patella Tracking: Normal Skin Integrity: Normal Pulses Palpable: Left PT:Yes Left DP:Yes Motor/Sensory: Distal Motor:Normal Distal Sensory: Normal Quadriceps Strength:5 I have made the following determinations: Knee Exam: RIGHT Prior surgery on this joint: Yes Gait Abnormality: Antalgic Knee ROM: Extension:5 Flexion: 115 Alignment: 0-4 degrees Varus Stability: A/P Translation <5mm. Varus (lateral stability) <5mm Valgus (medial stability) <5mm Extension La degrees or less Patella Tracking: Normal Skin Integrity: Normal Pulses Palpable: Right PT: Yes Right DP:Yes Motor/Sensory: Distal Motor: Normal Distal Sensory: Normal Quadriceps Strength: 5 RADIOGRAPHIC ANALYSIS - RIGHT KNEE: Together, we reviewed his radiographs obtained previously which demonstrate degenerative joint disease. Kellgren-Josiah Grade: 4= large osteophytes, marked narrowing, obvious deformity [0= normal; 1=minimal ; 2= some osteophytes , some narrowing ; 3= moderate osteophytes, significantnarrowing, mild deformity; 4= large osteophytes, marked narrowing, obvious deformity] RADIOGRAPHIC ANALYSIS - LEFT KNEE: Together, we reviewed his radiographs obtained previously which demonstrate degenerative joint disease. Kellgren-Josiah Grade: 3= moderate osteophytes, significant narrorwing, mild deformity [0= normal; 1=minimal ; 2= some osteophytes , some narrowing ; 3= moderate osteophytes, significantnarrowing, mild deformity; 4= large osteophytes, marked narrowing, obvious deformity] Questionnaire Responses: General Health, Prior Treatments, PreExisting Condition, Health Habits, About You 05/07/2015 PROMIS-10 General Health Very Good PROMIS-10 [...] Advil,Aspirin, Aleve), Injection of steroids or cortisone Alzheimers or dementia No Cirrohosis or liver disease No HIV/AIDS No Pain in more than one joint in legs Yes Back or neck pain No Heart attack No Heart failure No Unclog/bypass leg arteries No Stroke, blood clot, TIA No Asthma No Emphysema, chronic bronchities, or COPD No Stomach ulcers/peptic ulcer disease No Diabetes No Poor kidney function No Rheumatic condtions No Cancer No Weight (lbs) 290 Height (feet) 6 feet Height (Inches) 0 BMI 39.32 (Obese) Ever used tobacco products Yes Tobacco frequency Never WHO - Tobacco Advice 0 (You are at low risk of health and other problems from your current pattern of use.) Ever used alcoholic beverages Yes Alcohol frequency Once or twice WHO - Alcohol Advice 2 (You are at low risk of health and other problems from your current pattern of use.) Live Alone No Marital situation Schooling High school graduate or GED Combined Household Income $20,000 to less than $25,000 # People Supported 2 Malay, , No, not Malay// Race White Currently working No Not working because: Retired [facility] Response 05/07/2015 KOOS-PS Scores 42 No flowsheet data found. ASSESSMENT AND PLAN: Mr. Morin is a 70 y.o. year old male with severe osteoarthritis of his bilateral knees with the bilateral knee being more symptomatic. Patient seen with Dr. Rae. We reviewed the multiple treatment options available to him for this condition. Both operative and nonoperative options were discussed as well as the pure elective nature of each. I reviewed the concept of the arthritis ladder with its step-hoskins approach, rising in invasiveness based on either previous response or symptom severity/impact on lifestyle. Considering the apparent impact on his lifestyle and having explored non- operative treatment options, I indicated that in my opinion, the treatment most likely to restore a more normal, pain-free level of function would be joint replacement of his both knee(s). documented in this encounter Miscellaneous Notes * Addendum Note - Adina Rae MD - 05/07/2015 4:55 PM ESTAddended by: ADINA RAE on: 05/07/2015 04:55 PM Modules accepted: Orders, SmartSet documented in this encounter Plan of Treatment Upcoming Encounters Date Type Department Care Team (Late st Contact Info) Description 10/31/2023 9:15 AM EDT Office Visit Dermatology at [facility] [address] [place] [address] Dawson Broderick MD [facility] DR [facility] [place] [address] 07/23/2024 9:30 AM EDT Office Visit Dermatology at [facility] [address] [place] [address] Dawson Broderick MD [facility] DR [facility] [place] [address] documented as of this encounter Procedures Procedure Name Priority Date/Time Associated Diagnosis Comments TOTAL KNEE ARTHROPLASTY Routine 05/07/19 16 4:43 PM EST Primary osteoarthritis of both knees documented in this encounter Results * XR TKA First Po Visit Alignment AP Lat [place] Left (10/08/2015 10:07 AM EDT) Anatomical Region [...] Moderately largejoint effusion on the left side. Adina Rae MD IMG DX ORDERABLES * (ABNORMAL) Urinalysis with reflex Culture (06/25/2015 12:10 PM EDT) Glucose UA Negative Negative mg/dL [facility] Protein UA Negative Negative mg/dL [facility] Bilirubin UA Negative Negative mg/dL [facility] Comment: Clinical correlation required for positive Urine Bilirubin results as false positive may occur with some drugs and drug related products. If a false positive is suspected a serum total bilirubin should be considered if clinically indicated. Urobilinogen UA Normal Normal mg/dL M [facility] pH UA 5.0 5.0 - 8.0 [facility] Blood UA Negative Negative mg/dL [facility] Ketones UA 5(A) Negative mg/dL [facility] Nitrite UA Negative Negative [facility] Leukocytes UA Small(A) Negative mcL MAR Y [facility] Appearance UA Clear Clear [facility] Spec [place] UA 1.025 1.002 - 1.030 [facility] Color UA Yellow Yellow [facility] RBC UA 2 0 - 3 /HPF [facility] WBC UA 16(H) 0 - 3 /HPF [facility] Hyaline Cast UA 4(H) 0 - 2 /LPF [facility] Culture Reflexed Yes [facility] Urine specimen obtained by clean catch procedure (specimen) 06/25/2015 12:10 PM EDT 06/25/2015 12:40 PM EDT Narrative Resulting Agency Comment Spec In Lab Adina Rae MD URINE ORDERABLES Performing Organization Address [facility] Co de Phone Number [facility] [place] [address] * Prothrombin Time (06/25/2015 10:50 AM EDT) PT 12.8 12.0 - 15.0 sec [facility] [...] clinical circumstances. INR 0.9 0.9 - 1.1 [facility] Blood specimen (specimen) 06/25/2015 10:50 AM EDT 06/25/2015 11:13 AM EDT Narrative Resulting Agency Comment Spec In Lab Adina Rae MD HEMATOLOGY ORDERABLE S Performing Organization Address City/[facility]/ZIP Co de Phone Number [facility] [place] [address] * Basic Metabolic Panel (non-fasting) (06/25/2015 10:50 AM EDT) Glucose Lvl 91 65 - 199 mg/dL [facility] Comment:Diabetes: >=200 mg/d L plus symptoms BUN 20 10 - 20 mg/dL [facility] Creatinine 1.19 0.80 - 1.50 mg/dL [facility] Comment: Please note that the pediatric reference intervals supplied above were not validated at [facility]. Results from pediatric patients should be interpreted in conjunction to the patient's age, height and muscle mass. Sodium 139 135 - 145 mmol/L [facility] Potassium 4.6 3.5 - 5.0 mmol/L [facility] Comment: Please note: ??Patients with WBC >100,000 may have falsely elevated Potassium levels. ??For accurate Potassium quantification in these patients send serum separator tube (gold top) for subsequent determinations. ??Contact the Clinical Chemistry Laboratory if there are any questions. Chloride 101 98 - 107 mmol/L [facility] CO2 27 22 - 31 mmol/L [facility] Anion Gap 11 5 - 15 mmol/L [facility] Calcium 9.2 8.5 - 10.5 mg/dL [facility] Estimated GFR >60 >=60 [facility] Comment: This estimated GFR [...] the following links into your internet browser. [email or web address] Blood specimen (specimen) 06/25/2015 10:50 AM EDT 06/25/2015 11:13 AM EDT Narrative Resulting Agency Comment Spec In Lab Adina Rae MD CHEMISTRY ORDERABLES [facility] [place] [address] * EKG 12 Lead (06/25/2015 10:35 AM EDT) Ventricular rate 91 BPM MUSE SYSTEM Atrial Rate 91 BPM MUSE SYSTEM P-R Interval 178 ms MUSE SYSTEM QRS Duration 96 ms MUSE SYSTEM Q-T Interval 346 ms MUSE SYSTEM QTC Calculated (Bezet) 425 ms MUSE SYSTEM Calculated P [place] 57 degrees MUSE SYSTEM Calculated R [place] 66 degrees MUSE SYSTEM Calculated T [place] 12 degrees MUSE SYSTEM INTERPRETATION Normal sinus rhythm Nonspecific T wave abnormality Borderline EKG When compared with ECG of 08-NOV-1996 04:54, No significant change was found Confirmed by MD MELINDA, PRISCILLA ([id number]) on 06/26/2015 8:31:57 AM MUSE SYSTEM 06/25/2015 10:3 5 AM EDT 06/26/2015 8:31 AM EDT Adina Rae MD ECG ORDERABLES MUSE SYSTEM documented in this encounter Visit Diagnoses Diagnosis Bilateral knee pain Pain in joint, lower leg Primary osteoarthritis of both knees Primary localized osteoarthrosis, lower leg Pain in both lower extremities Primary osteoarthritis of both knees Primary localized osteoarthrosis, lower leg documented in this encounter Care Teams Orthodontic Lab Technician Relationship Specialty Start Date End Date Phoenix Guzmán DO [address] [place] [address] [place] [address] PCP - General General Internal Medicine 02/20/15 documented as of this encounter
--- OUTSIDE RECORDS SUMMARY | 2023-10-23 09:10 | XMS_ITS | Encounter Summary ---
[place] [address] Care Team Providers Care Manufacturing Finance Manager Name Role Phone Phoenix Guzmán DO Primary Care Provider [phone] Reason for Referral * Consultation (Routine) - Closed Specialty Diagnoses / Procedures Referred By Omid shepherd Referred To Contact Orthopaedics Diagnoses H/O total hip arthroplasty, unspecified laterality Primary osteoarthritis of both knees Jerel Quintanilla MD [facility] [place] [address] Walter Rae MD [facility] [place] [address] Referral ID Status Reason Start Date Expiration Date V isits Requested Visits Authorized [id number] Closed Consult, Test & Treat 04/16/2015 04/15/2016 1 1 Reason for Visit * Reason Comments Bilateral Knee Pain SP R ELZBIETA DOS 11/[birth year] * Consultation (Routine) - Closed Specialty Diagnoses / Procedures Referred By Omid shepherd Referred To Contact Orthopaedics Diagnoses Bilateral Knee Pain Lagoy, Phoenix T, [address] [place] [address] Jerel Quintanilla MD [facility] [place] [address] Referral ID Status Reason Start Date Expiration Date V isits Requested Visits Authorized [id number] Closed Consult, Test & Treat [facility] 02/20/2015 02/20/2016 1 1 Encounter Details Date Type Department Care Team (Latest Contact Info) Description 04/16/2015 10:00 AM EST Office [place] [address] Jerel Quintanilla MD [facility] [place] [address] H/O total hip arthroplasty, unspecified laterality; Primary osteoarthritis of both knees Social History Tobacco Use Types Packs/Day Years [...] Sign Reading Time Taken Comments Blood Pressure 142/95 04/16/2015 10:06 AM EST Pulse 97 04/16/2015 10:06 AM EST Temperature - - Respiratory Rate - - Oxygen Saturation - - Inhaled Oxygen Concentration - - Weight 131.5 kg (290 lb) 04/16/2015 10:06 AM EST STATED Height 182.9 cm (6') 04/16/2015 10:06 AM EST [facility] Body Mass Index 39.33 04/16/2015 10:06 AM EST documented in this encounter Progress Notes * Jerel Quintanilla - 04/16/2015 10:32 AM EST Mr. Morin is a 70-year-old gentleman, who is 18 years status post a right total hip replacement. This is an S-ROM Duraloc with a ceramic-on high-density polyethylene bearing surface. He remains without any symptoms in this hip. What brings him in however increasing discomfort in both his knees and these are knees that are now markedly compromising the quality of his life. His ambulatory capabilities have been limited, stairs are problem down more than up, and uneven terrain is a problem. They have not locked, but they have swelled, and despite the fact that he takes about 3000 mg of ibuprofen, which does help that his pain is breaking through. He has had an effort at bilateral steroid injections by his primary care physician and he only got three days of improvement. He is otherwise a big man, but he is only some Pravachol and aspirin. He is active. On his physical exam, he could rise from a chair without the use of his arms. He walks with some genu varus bilaterally, slightly antalgic. When seated, I can bring his hip through an excellent range of motion with neither pain or apprehension. Both knees do come to full extension. They flex about 105 to 110 degrees. He has the appropriate laxity medially with valgus stress and he is tender over the medial joint lines bilaterally, the right a little bit more than the left. He is stable in the sagittal plane and patella seems to tract well. No distal neurovascular compromise of any significance. He does have straight leg raising without a lag, but his quads did go into ???spasm.?? X-rays of his hip show eccentric poly wear with some osteolysis apparent over the trochanter, but otherwise the hip looks fine. Bone stock is still of excellent quality. As far as his knees, he is in varus bilaterally, right more than left. He has moderately severe degenerative arthritis, primarily involving medial compartment and indeed on his Elaine views, he has [id number] bilaterally. ASSESSMENT: Hip has done well, but he is aware of the osteolysis and I think that when he is seen in about a year, we should probably get a CAT scan in addition to his plain films just to rule out any worrisome osteolysis on the acetabular side that we are not seeing. As far as his knees are concerned, I think he is a candidate for joint replacement as is and doing both sides in this individual simultaneously I think is also warranted. I will set him up for that appointment and again we will see him in one year's time for followup of his hip or earlier p.r.n. CC: DO Walter Edmonds MD documented in this encounter Plan of Treatment Upcoming Encounters Date Type Department Care Team (Late st Contact Info) Description 10/31/2023 9:15 AM EDT Office Visit Dermatology at [facility] [address] [place] [address] Dawson Broderick MD [facility] [address] [place] [address] 07/23/2024 9:30 AM EDT Office Visit Dermatology at [facility] [address] [place] [address] Dawson Broderick MD [facility] [place] [address] Scheduled Referrals Name Type Priority Associated Diagnoses Orde r Schedule Referral to Orthopaedics Outpatient Referral Routine H/O total hip arthroplasty, unspecified laterality Primary osteoarthritis of both knees Ordered: 04/16/2015 documented as of this encounter Visit Diagnoses Diagnosis H/O total hip arthroplasty, unspecified laterality Primary osteoarthritis of both knees Primary localized osteoarthrosis, lower leg documented in this encounter Care Teams Manufacturing Finance Manager Relationship Specialty Start Date End Date Phoenix Guzmán DO [address] [place] [address] [place] [id number] PCP - General General Internal Medicine 02/20/15 documented as of this encounter
--- OUTSIDE RECORDS SUMMARY | 2023-10-23 09:10 | XMS_ITS | Encounter Summary ---
[place] [address] Care Team Providers Care Mica Layer Name Role Phone Jovani Lucero MD Primary Care Provider [phone] Encounter Details Date Type Department Care Team (Late st Contact Info) Description 03/18/2013 Orders [place] [address] Jerel Quintanilla MD [facility] [place] [address] H/O total hip arthroplasty Social History Tobacco Use Types Packs/Day Years [...] Dermatology at [facility] [address] [place] [id number] Dawson Broderick MD [facility] [place] [address] 07/23/2024 9:30 AM EDT Office Visit Dermatology at [facility] [address] [place] [address] Dawson Broderick MD [facility] [place] [address] documented as of this encounter Results * XR pelvis and lateral hip (05/02/2013 1:39 PM EST) Anatomical Region Laterality Modality Pelvis, Hip N/A Radiographic Karolina ging 05/02/2013 1:39 PM EST Narrative 05/02/2013 3:17 PM EST Examination PELVIS+LATERAL HIP/RIGHT, 05/02/2013 ?? Clinical History RCHCK R ELZBIETA DOS 11/06/96 Comparison Low AP pelvis radiograph and radiographs of the bilateral hips, 01/12/2012. Technique AP radiograph of the mid-inferior pelvis and frog-leg lateral radiograph of the right hip, as well as radiographs of the right hip dating back to 04/23/2007. Findings Noncemented right total hip arthroplasty is unchanged in position, the femoral head again noted to be similarly eccentrically positioned within the acetabular cup, consistent with underlying asymmetric polyethylene wear. ??There is no periprosthetic fracture or interval periprosthetic radiolucencies identified. ?? There remains a relatively lucent area adjacent to the proximal lateral stem, which appears unchanged dating back to the 2007 radiographs. ??Left hip joint remains relatively maintained with small marginal acetabular osteophytes. ?? Degenerative changes of the symphysis pubis are also again noted. Impression Unchanged appearance of right total hip arthroplasty with asymmetric polyethylene wear. ??No interval periprosthetic fracture or other periprosthetic radiolucencies. Procedure Note Deloris Rose MD - 05/02/2013 Examination PELVIS+LATERAL HIP/RIGHT, 05/02/2013 Clinical History RCHCK R ELZBIETA DOS 11/06/96 Comparison Low AP pelvis radiograph and radiographs of the bilateral hips,01/12/2012. Technique AP radiograph of the mid-inferior pelvis and frog-leg lateral radiographof the right hip, as well as radiographs of the right hip dating back to04/23/2007. Findings Noncemented right total hip arthroplasty is unchanged in position, thefemoral head again noted to be similarly eccentrically positioned within theacetabular cup, consistent with underlying asymmetric polyethylene wear. There is no periprosthetic fracture or interval periprosthetic radiolucenciesidentified. There remains a relatively lucent area adjacent to the proximal lateralstem, which appears unchanged dating back to the 2007 radiographs. Left hipjoint remains relatively maintained with small marginal acetabular osteophytes. Degenerative changes of the symphysis pubis are also again noted. Impression Unchanged appearance of right total hip arthroplasty with asymmetric polyethylene wear. No interval periprosthetic fracture or otherperiprosthetic radiolucencies. Jerel Quintanilla MD IMG DX ORDERABLES documented in this encounter Visit Diagnoses Diagnosis H/O total hip arthroplasty Hip joint replacement by other means H/O total hip arthroplasty Hip joint replacement by other means documented in this encounter Care Teams Mica Layer Relationship Specialty Start Date End Date Jovani Lucero MD [address] [place] [address] [place] [address] PCP - General 02/23/10 02/19/15 documented as of this encounter
--- OUTSIDE RECORDS SUMMARY | 2023-10-23 09:10 | XMS_ITS | Encounter Summary ---
[place] [address] Care Team Providers Care Director Social Name Role Phone Jovani Lucero MD Primary Care Provider [phone] Reason for Visit * Reason Comments Aftercare Of Tjr s/p right ELZBIETA 11/06/96 Encounter Details Date Type Department Care Team (Late st Contact Info) Description 01/12/2012 2:30 PM EDT Office [place] [address] Jerel Quintanilla MD [facility] [place] [address] H/O total hip arthroplasty (Primary Dx); Other specified pre-operative examination; Status post hip replacement Discharge Disposition: Home Social History [...] Sign Reading Time Taken Comments Blood Pressure 126/84 01/12/2012 3:29 PM EDT Pulse - - Temperature - - Respiratory Rate - - Oxygen Saturation - - Inhaled Oxygen Concentration - - Weight 132.5 kg (292 lb) 01/12/2012 3:29 PM EDT Height 182.9 cm (6') 01/12/2012 3:29 PM EDT Body Mass Index 39.6 01/12/2012 3:29 PM EDT documented in this encounter Progress Notes * Jerel Quintanilla - 01/12/2012 4:05 PM EDT Mr. Morin is a 66-year-old gentleman who is 14 years status post right total hip replacement, specifically ceramic 28 mm ball on high-density polyethylene uncemented implant, doing well, has not had any complaints with surgery, remains without any complaints. PHYSICAL EXAMINATION: He could rise from a chair without the use of his arms. He has a perfectly normal gait and demonstrates nopain or apprehension with range of motion. DIAGNOSTIC DATA: His x-ray show excellent position of the implant, although there is unequivocal evidence of eccentric wear with a little osteolysis in the area of the trochanter, but again he has no symptoms whatsoever and has no osteolysis in any important part of either the acetabular or the femoral bone. ASSESSMENT: So far so good. Admonitions about good foot care, dental, urologic prophylaxis once again emphasized, and we will see him in one year's time for followup with x-rays or earlier p.r.n. CC: Jovani Lucero MD documented in this encounter Plan of Treatment Upcoming Encounters Date Type Department Care Team (Late st Contact Info) Description 10/31/2023 9:15 AM EDT Office Visit Dermatology at [facility] [address] [place] [address] Dawson Broderick MD [facility] [place] [address] 07/23/2024 9:30 AM EDT Office Visit Dermatology at [facility] [address] [place] [address] Dawson Broderick MD [facility] [place] [address] documented as of this encounter Visit Diagnoses Diagnosis H/O total hip arthroplasty- Primary Hip joint replacement by other means Other specified pre-operative examination Status post hip replacement Hip joint replacement by other means documented in this encounter Care Teams Director Social Relationship Specialty Start Date End Date Jovani Lucero MD [address] [place] [address] [place] [address] PCP - General 02/23/10 02/19/15 documented as of this encounter
--- OUTSIDE RECORDS SUMMARY | 2023-10-23 09:10 | XMS_ITS | Encounter Summary ---
Author Organization [facility] Address [facility] [place] [address] Care Team Providers Care Developer [employer] Name Role Phone Phoenix Guzmán DO Primary Care Provider [phone] Encounter Details Date Type Department Care Team (Latest Contact Info) Description 04/16/2015 9:01 AM EST - 04/16/2015 11:59 PM [facility] Hospital Encounter XRay at [address] [place] [address] Jerel Quintanilla MD [facility] [place] [address] Presence of right artificial hip joint Discharge Disposition: Home Social History Tobacco Use [...] at [facility] [address] [place] [address] Dawson Broderick MD [facility] [place] [address] 07/23/2024 9:30 AM EDT Office Visit Dermatology at [facility] [address] [place] [address] Dawson Broderick MD [facility] [place] [place] [address] documented as of this encounter Procedures Procedure Name Priority Date/Time Associated Diagnosis Comments XR PELVIS AND LAT HIP RIGHT Routine 04/16/2015 9:35 AM EST Presence of right artificial hip joint documented in this encounter Results * XR Pelvis And Lateral Hip Right (04/16/2015 9:35 AM EST) Anatomical Region Laterality Modality Pelvis, Hip Right Digital Radiogra phy Impressions 04/16/2015 10:45 AM EST IMPRESSION: Right 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 I do not see component loosening. There is minimal change comparison to 2011 but I do think the femoral lesions are slightly larger. Narrative 04/16/2015 10:45 AM EST EXAMINATION: XR PELVIS AND LATERAL HIP RIGHT CLINICAL HISTORY: R ELZBIETA TECHNIQUE: AP pelvis and lateral right hip COMPARISON: 01/12/2012 and earlier films dating back to 09/15/2003 FINDINGS: As seen on recent studies there is asymmetric polyethylene wear. Focal well-defined areas of radiolucency characteristic in appearance of osteolysis are again seen in zone 1 and 7 of the proximal femur. When compared to 2012, there appears to be a slight increase in the size of these lesions. I do not see radiographic evidence of femoral component loosening. Deep to the acetabular component there is ill-defined radiolucency. I do not see an definite well-defined osteolytic lesion or a definite change comparison to the earlier study. Procedure Note Ezekiel Juares MD - 04/16/2015 EXAMINATION: XR PELVIS AND LATERAL HIP RIGHT CLINICAL HISTORY: R ELZBIETA TECHNIQUE: AP pelvis and lateral right hip COMPARISON: 01/12/2012 and earlier films dating back to 09/15/2003 FINDINGS: As seen on recent studies there is asymmetric polyethylene wear. Focal well-defined areas of radiolucency characteristic in appearance of osteolysis are again seen in zone 1 and 7 of the proximal femur. Whencompared to 2012, there appears to be a slight increase in the size of theselesions. I do not see radiographic evidence of femoral component loosening. Deep tothe acetabular component there is ill-defined radiolucency. I do not see andefinite well-defined osteolytic lesion or a definite change comparison to theearlier study. 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 I do not seecomponent loosening. There is minimal change comparison to 2012 but I do think thefemoral lesions are slightly larger. Jerel Quintanilla MD IMG DX ORDERABLES documented in this encounter Visit Diagnoses Diagnosis Presence of right artificial hip joint Hip joint replacement by other means documented in this encounter Care Teams Developer [employer] Relationship Specialty Start Date End Date Phoenix Guzmán DO [address] [place] [address] [place] [address] PCP - General General Internal Medicine 02/20/15 documented as of this encounter
--- OUTSIDE RECORDS SUMMARY | 2023-10-23 09:10 | XMS_ITS | Encounter Summary ---
[place] [address] Care Team Providers Care Registry Rn Name Role Phone Phoenix Mejias Primary Care Provider [phone] Reason for Visit * Reason Onset Date Comments Pre Procedure Call 07/01/2015 Encounter Details Date Type Department Care Team (Late st Contact Info) Description 07/01/2015 [place] [address] Walter Rae MD [facility] [place] [address] Pre Procedure Call Social History Tobacco Use [...] Telephone Encounter - Ruben Sands RN - 07/01/2015 8:46 AM EDT Spoke with Dr Mejias's office this morning. He has been in touch with Dr Koenig and they are going to arrange a cardiac cath for this patient prior to surgery. They will let us know if he is cleared but are not cancelling his upcoming surgery yet. documented in this encounter Plan of Treatment Upcoming Encounters Date Type Department Care Team (Late st Contact Info) Description 10/31/2023 9:15 AM EDT Office Visit Dermatology at [facility] [address] [place] [address] Dawson Broderick MD [facility] [address] [place] [address] 07/23/2024 9:30 AM EDT Office Visit Dermatology at [facility] [address] [place] [address] Dawson Broderick MD [facility] [place] [place] [address] documented as of this encounter Visit Diagnoses Not on filedocumented in this encounter Care Teams Registry Rn Relationship Specialty Start Date End Date Phoenix Mejias DO [address] [place] [address] [place] [address] PCP - General General Internal Medicine 02/20/15 documented as of this encounter
--- OUTSIDE RECORDS SUMMARY | 2023-10-23 09:10 | XMS_ITS | Encounter Summary ---
[place] [address] Care Team Providers Care Printing Plate Maker Name Role Phone DevantePhoenix orozco Susan MCDOWELL Primary Care Provider [phone] Reason for Visit * Diagnostic Test (Routine) - Closed Specialty Diagnoses / Procedures Referred By Omid shepherd Referred To Contact Radiology Diagnoses Regional wall motion abnormality of heart Procedures NM myocardial perfusion scan, pharmacologic Walter Rae MD [facility] [place] [address] [place] [address] Referral ID Status Reason Start Date Expiration Date V isits Requested Visits Authorized [id number] Closed Specialty Service Requested 06/25/2015 06/24/2016 1 1 Encounter Details Date Type Department Care Team (Latest Contact Info) Description 06/29/2015 8:53 AM EDT - 06/29/2015 11:59 PM EDT Hospital Encounter [place] [address] Walter Rae MD [facility] [place] [address] Discharge Disposition: Home Social History Tobacco Use [...] AM EDT Office Visit Dermatology at [facility] [address] [place] [address] Dawson Broderick MD [facility] [place] [address] 07/23/2024 9:30 AM EDT Office Visit Dermatology at [facility] [address] [place] [address] Dawson Broderick MD [facility] [place] [address] documented as of this encounter Procedures Procedure [...] MAR Action Action Date Dose Rate Site regadenoson (LEXISCAN) injection 0.4 mg 0.4 mg, Intravenous, ONCE, 1 dose, On 06/29/15 at 1145, Routine Given 06/29/2015 10:45 AM EDT 0.4 mg documented in this encounter Care Teams Printing Plate Maker Relationship Specialty Start Date End Date Phoenix Guzmán DO [address] [place] [address] [place] [phone] PCP - General General Internal Medicine 02/20/15 documented as of this encounter
--- OUTSIDE RECORDS SUMMARY | 2023-10-23 09:10 | XMS_ITS | Encounter Summary ---
Author [place] [address] Care Team Providers Care Contact Representative Name Role Phone Phoenix Guzmán DO Primary Care Provider [phone] Encounter Details Date Type Department Care Team (Late st Contact Info) Description 07/09/2015 Orders Only Cardiology at [address] [address] Susan Arnold PA [facility] [place] [address] ASCVD (arteriosclerotic cardiovascular disease) Social History Tobacco Use Types Packs/Day Years [...] 9:15 AM EDT Office Visit Dermatology at [facility] [address] [place] [address] Dawson Broderick MD [facility] [place] [address] 07/23/2024 9:30 AM EDT Office Visit Dermatology at [facility] [address] [place] [address] Dawson Broderick MD [facility] [place] [address] documented as of this encounter Procedures Procedure Name Priority Date/Time Associated Diagnosis Comments CARDIAC CATHETERIZATION Routine 07/10/2015 1:21 PM EDT ASCVD (arteriosclerotic cardiovascular disease) documented in this encounter Results * CARDIAC CATHETERIZATION (07/10/2015 1:21 PM EDT) Anatomical Region Laterality Modality Other Narrative 07/10/2015 1:43 PM EDT ?[facility] ? Cardiac Catheterization/Intervention Report ? Patient Name: Gunnar Morin ? Procedure Date: 07/10/2015 ? A #: [id number] ? Primary Physician: Juan, Avi T ? Case #: [id number] ? File Name: [id number] ? Catheterization Order Number: [id number] ? [facility] ? Final Report [place], [place] ? Patient Name: ? Gunnar Morin ? ID#: ?[id number] ? : ?1945 ? Procedure Date: ? July 10, 2015 ?Case #: ? [id number] ? Room: ? 6 ? Case Physician: ? Avi Kilgore M.D. ?Start: ?12:00 ?Fellow: ? Harris Baig M.D. ?Admission: ??07/10/2015 ? Referring ? Dom Koenig M.D. ? Physicians: ?Phoenix Guzmán M.D. ? Procedures: ?* Coronary Angiography ?* Left Heart Catheterization ?* Coronary Stent Insertion ? History ?Gunnar Morin is a 70 year old man. He has hypertension and morbid ?obesity. The patient has a history of smoking. He has ?hypercholesterolemia. The patient has a history of chest pain and a prior ?history of coronary artery disease. He has a history of dyspnea with NYHA ?functional class II. The patient also has a history of an abnormal stress ?test and an abnormal echocardiogram. Prior to the initiation of this ?procedure, the patient was designated as ASA Class II. ? Patient Status at Catheterization: ?The patient presented with: stable angina (w/i 42 days). [place] ?Cardiovascular Society angina class was II. This patient was on beta ?blockers prior to the procedure. A SPECT stress test was performed and ?results were Positive and Intermediate Risk ischemia assessment. ? Technique: ?A 6 SLFr sheath was inserted in the right radial artery utilizing the ?Seldinger technique. The left coronary artery was injected utilizing a ?5Fr Helio Radial catheter. A 5Fr Helio Radial catheter was used to inject ?the right coronary artery. Left ventricular pressure was performed with a ?5Fr Helio Radial catheter. Coronary stent insertion was performed and the ?equipment utilized will be described in the intervention summary section. ?10,000 units of heparin were administered. A total of 300cc of Omnipaque ?were opened, 200cc of Omnipaque were administered and 100cc of Omnipaque ?were wasted. Radiation: Fluoro time was 27.5 minutes, dose area product ?was 251,238 mGYcm2 and air kerma was 2,707 mGY. ? Hemodynamics: ?Left Heart Pressures ? Resting: ? Syst Diast ? EDP ?a ?v ? m ?Ao 90 ?65 ?73 ?LV 110 ? 5 ? Post Contrast: ? Syst Diast ? EDP ?a ?v ? m ?Ao 110 ?? 73 ?84 ?LV 113 ? 6 ? Coronary Angiography: ?Dominance: Right ?Left Main ? There was mild diffuse disease of the entire vessel segment of the ? left main artery. ?Left Anterior Descending ? There was mild diffuse disease of the entire vessel segment of the ? left anterior descending artery (LAD). ??The mid segment of the LAD ? had a calcified multiple discrete 80% stenoses. ? As a consequence of the catheterization/intervention procedures, a ? 70% single discrete stenosis developed in the ostial segment of the ? second diagonal branch (Diagonal 2) of the LAD. The Diagonal 2 was ? moderate in size. ?Left Circumflex ? There was mild diffuse disease of the entire vessel segment of the ? left circumflex artery (LCX) and it was calcified. ?Right Coronary Artery ? There was a single discrete total occlusion of the proximal segment ? of the right coronary artery (RCA). ??Distal flow was via collaterals ? from the LAD and collaterals from the LCX. ? Indication for Intervention: ?Coronary intervention was indicated for treatment of stable angina, CCS ?Class II. Left ventricular Ejection Fraction was estimated at 60 percent. ?The priority for the procedure was Elective. The NCDR indication for the ?procedure was Stable angina. ? Intervention Summary: ?Left Anterior Descending Artery ? Mid 80% ? Stent insertion was performed on the 80% multiple discrete ? stenosis in the mid segment of the LAD. This was a de ana paula ? lesion. According to the ACC/AHA classification system, this ? lesion was a type C high risk lesion. Primary prevention of ? restenosis was the indication for stent insertion. This was ? the culprit lesion. Vessel flow pre intervention was MARY 3. ? Stent insertion was accomplished through a 6 Fr. EBU 4.0 ? guide. ??The lesion was predilated with a 2.50mm EUPHORA 20 MM ? balloon with a maximum inflation pressure of 18 atmospheres. ? A premounted 3.50 x 32 mm Rebel (BMS) was deployed with a ? maximum inflation pressure of 18 atmospheres. ??Following stent ? deployment, the lesion was dilated using a 3.75mm NC TREK 20 ? MM balloon with a maximum inflation pressure of 22 ? atmospheres. ? Another stent insertion was accomplished through a 6 Fr. EBU ? 4.0 guide. ??The lesion was predilated with a 2.50mm EUPHORA 20 ? MM balloon with a maximum inflation pressure of 20 ? atmospheres. ??A premounted 3.50 x 12 mm Rebel (BMS) was ? deployed with a maximum inflation pressure of 18 atmospheres. ? Following stent deployment, the lesion was dilated using a ? 3.75mm NC TREK 15 MM balloon with a maximum inflation pressure ? of 22 atmospheres. ? The final outcome was defined as successful. There was no ? residual stenosis following this intervention. The final MARY ? flow was 3. ? Vascular Access: ?Vascular Access Management: ? Mechanical Compression of the right radial artery access site was ? performed. ? Conclusions: ?* Two vessel coronary artery disease (LAD and RCA) ?* Successful stent insertion of the mid LAD lesion ?* Bare metal stents placed to allow for upcoming knee surgery. ? Complications/Events: ?The patient had no complications during these procedures. ? Recommendations: ?The patient's medical regimen was changed as follows: Plavix for 1-3 ?months, aspirin lifelong. ? Comments: ?Bare metal stents placed due to need for upcoming knee surgery. ?The attending physician was present for the entire procedure. ?Dr. Avi Kilgore M.D. performed the coronary angiography, left heart ?catheterization and stent insertion-coronary. ? Avi Kilgore M.D. ? Electronically Signed by: Avi Kilgore M.D. ? Report Finalized: 07/10/2015 ??13:33 ? Procedure Note Avi Kilgore MD - 07/10/2015 [facility] Cardiac Catheterization/Intervention Report Patient Name: Gunnar Morin Procedure Date: 07/10/2015 A #: [id number] Primary Physician: Avi Kilgore Case #: [id number] File Name: [id number] Catheterization Order Number: [id number] [facility] FinalReport [place], [place] Patient Name: Gunnar Morin ID#:[id number] :1945 Procedure Date: July 10, 2015 Case #: [id number] Room: 6 Case Physician: Avi Kilgore M.D. Start: 12:00 Fellow: Harris Baig M.D. Admission:07/10/2015 Referring Dom Koenig M.D. Physicians: Phoenix Guzmán M.D. Procedures: * Coronary Angiography * Left Heart Catheterization * Coronary Stent Insertion History Gunnar Morin is a 70 year old man. He has hypertension andmorbid obesity. The patient has a history of smoking. He has hypercholesterolemia. The patient has a history of chest pain and aprior history of coronary artery disease. He has a history of dyspnea withNYHA functional class II. The patient also has a history of an abnormalstress test and an abnormal echocardiogram. Prior to the initiation of this procedure, the patient was designated as ASA Class II. Patient Status at Catheterization: The patient presented with: stable angina (w/i 42 days). [place] Cardiovascular Society angina class was II. This patient was on beta blockers prior to the procedure. A SPECT stress test was performedand results were Positive and Intermediate Risk ischemia assessment. Technique: A 6 SLFr sheath was inserted in the right radial artery utilizingthe Seldinger technique. The left coronary artery was injected utilizinga 5Fr Helio Radial catheter. A 5Fr Helio Radial catheter was used toinject the right coronary artery. Left ventricular pressure was performedwith a 5Fr Helio Radial catheter. Coronary stent insertion was performedand the equipment utilized will be described in the intervention summarysection. 10,000 units of heparin were administered. A total of 300cc ofOmnipaque were opened, 200cc of Omnipaque were administered and 100cc ofOmnipaque were wasted. Radiation: Fluoro time was 27.5 minutes, dose areaproduct was 251,238 mGYcm2 and air kerma was 2,707 mGY. Hemodynamics: Left Heart Pressures Resting: Syst Diast EDP a v m Ao 90 65 73 LV 110 5 Post Contrast: Syst Diast EDP a v m Ao 110 73 84 LV 113 6 Coronary Angiography: Dominance: Right Left Main There was mild diffuse disease of the entire vessel segment ofthe left main artery. Left Anterior Descending There was mild diffuse disease of the entire vessel segment ofthe left anterior descending artery (LAD). The mid segment of theLAD had a calcified multiple discrete 80% stenoses. As a consequence of the catheterization/interventionprocedures, a 70% single discrete stenosis developed in the ostial segment ofthe second diagonal branch (Diagonal 2) of the LAD. The Diagonal 2was moderate in size. Left Circumflex There was mild diffuse disease of the entire vessel segment ofthe left circumflex artery (LCX) and it was calcified. Right Coronary Artery There was a single discrete total occlusion of the proximalsegment of the right coronary artery (RCA). Distal flow was viacollaterals from the LAD and collaterals from the LCX. Indication for Intervention: Coronary intervention was indicated for treatment of stable angina,CCS Class II. Left ventricular Ejection Fraction was estimated at 60percent. The priority for the procedure was Elective. The NCDR indication forthe procedure was Stable angina. Intervention Summary: Left Anterior Descending Artery Mid 80% Stent insertion was performed on the 80% multiplediscrete stenosis in the mid segment of the LAD. This was a denovo lesion. According to the ACC/AHA classification system,this lesion was a type C high risk lesion. Primary preventionof restenosis was the indication for stent insertion. Thiswas the culprit lesion. Vessel flow pre intervention was TIMI3. Stent insertion was accomplished through a 6 Fr. EBU 4.0 guide. The lesion was predilated with a 2.50mm LPWULNC46 MM balloon with a maximum inflation pressure of 18atmospheres. A premounted 3.50 x 32 mm Rebel (BMS) was deployed with a maximum inflation pressure of 18 atmospheres. Followingstent deployment, the lesion was dilated using a 3.75mm NC TREK20 MM balloon with a maximum inflation pressure of 22 atmospheres. Another stent insertion was accomplished through a 6 Fr.EBU 4.0 guide. The lesion was predilated with a 2.50mmEUPHORA 20 MM balloon with a maximum inflation pressure of 20 atmospheres. A premounted 3.50 x 12 mm Rebel (BMS) was deployed with a maximum inflation pressure of 18atmospheres. Following stent deployment, the lesion was dilated usinga 3.75mm NC TREK 15 MM balloon with a maximum inflationpressure of 22 atmospheres. The final outcome was defined as successful. There was no residual stenosis following this intervention. The finalTIMI flow was 3. Vascular Access: Vascular Access Management: Mechanical Compression of the right radial artery access sitewas performed. Conclusions: * Two vessel coronary artery disease (LAD and RCA) * Successful stent insertion of the mid LAD lesion * Bare metal stents placed to allow for upcoming knee surgery. Complications/Events: The patient had no complications during these procedures. Recommendations: The patient's medical regimen was changed as follows: Plavix for 1-3 months, aspirin lifelong. Comments: Bare metal stents placed due to need for upcoming knee surgery. The attending physician was present for the entire procedure. Dr. Avi Kligore M.D. performed the coronary angiography, leftheart catheterization and stent insertion-coronary. Avi Kilgore M.D. Electronically Signed by: Avi Kilgore M.D. Report Finalized: 07/10/2015 13:33 Avi Kilgore MD CARDIAC CATH ORDERAB LES documented in this encounter Visit Diagnoses Diagnosis ASCVD (arteriosclerotic cardiovascular disease) Unspecified cardiovascular disease ASCVD (arteriosclerotic cardiovascular disease) Unspecified cardiovascular disease documented in this encounter Care Teams Contact Representative Relationship Specialty Start Date End Date Phoenix Guzmán DO [address] [place] [address] [place] [phone] PCP - General General Internal Medicine 02/20/15 documented as of this encounter
--- OUTSIDE RECORDS SUMMARY | 2023-10-23 09:10 | XMS_ITS | Encounter Summary ---
Author Organization [facility] [place] [address] Care Team Providers Care Assisted Living Housekeeper Name Role Phone Jovani Lucero MD Primary Care Provider [phone] Encounter Details Date Type Department Care Team (Latest Contact Info) Description 05/02/2013 1:15 PM EST - 05/02/2013 11:59 PM [facility] Hospital Encounter XRay at [address] [place] [address] H/O total hip arthroplasty Social History Tobacco [...] Sig Dispensed Refills Start Date End Date rosuvastatin (CRESTOR) 5 mg tablet Take 5 mg by mouth daily. 04/16/2015 OMEGA-3S/DHA/EPA/FISH OIL (OMEGA 3 ORAL) Take by mouth daily. 04/16 aspirin 81 mg EC tablet Take 81 mg by mouth daily. 09/22/2016 documented as of this encounter Plan of Treatment Upcoming Encounters Date Type Department Care Team (Late st Contact Info) Description 10/31/2023 9:15 AM EDT Office Visit Dermatology at [facility] [address] [place] [address] Dawson Broderick MD [facility] [place] [address] 07/23/2024 9:30 AM EDT Office Visit Dermatology at [facility] [address] [place] [address] Dawson Broderick MD [facility] [place] [address] documented as of this encounter Procedures Procedure Name Priority Date/Time Associated Diagnosis Comments XR PELVIS AND LATERAL HIP Routine 05/02/2013 1:39 PM EST H/O total hip arthroplasty documented in this encounter Results * XR [...] means documented in this encounter Care Teams Assisted Living Housekeeper Relationship Specialty Start Date End Date Jovani Lucero MD [address] [place] [address] [place] [address] PCP - General 02/23/10 02/19/15 documented as of this encounter
--- OUTSIDE RECORDS SUMMARY | 2023-10-23 09:10 | XMS_ITS | Encounter Summary ---
Author Organization [facility] [place] [address] Care Team Providers Care Honey Processor Name Role Phone Phoenix Guzmán DO Primary Care Provider [phone] Encounter Details Date Type Department Care Team (Latest Contact Info) Description 06/25/2015 10:00 AM EDT Laboratory [place] [address] Pain in both lower extremities ; Primary osteoarthritis of both knees Social History [...] at [facility] [address] [place] [phone] Dawson Broderick MD [facility] [place] [address] 07/23/2024 9:30 AM EDT Office Visit Dermatology at [facility] [address] [place] [phone] Dawson Broderick MD [facility] [place] [address] documented as of this encounter Procedures Procedure Name Priority Date/Time Associated Diagnosis Comments URINALYSIS WITH REFLEX CULTURE Routine 06/25/2015 12:10 PM EDT Primary osteoarthritis of both knees URINE CULTURE Routine 06/25/2015 12:10 PM EDT HEMOGRAM Routine 06/25/2015 10:50 AM EDT Pain in both lower extremities Primary osteoarthritis of both knees DIFFERENTIAL, AUTOMATED Routine 06/25/2015 10:50 AM EDT Pain in both lower extremities Primary osteoarthritis of both knees TYPE AND SCREEN, SDP (FUTURE SURGERY, [facility] [place] SAME DAY PROGRAM ONLY) Routine 06/25/2015 10:50 AM EDT Primary osteoarthritis of both knees ABO/RH TYPING Routine 06/25/2015 10:50 AM EDT Primary osteoarthritis of both knees PROTHROMBIN TIME Routine 06/25/2015 10:5 0 AM EDT Pain in both lower extremities Primary osteoarthritis of both knees CBC (WITH DIFF) Routine 06/25/2015 10:50 AM EDT Pain in both lower extremities Primary osteoarthritis of both knees ANTIBODY SCREEN Routine 06/25/2015 10:50 AM EDT Primary osteoarthritis of both knees BASIC METABOLIC PANEL (NON-FASTING) Routine 06/25/2015 10:50 AM EDT Primary osteoarthritis of both knees documented in this encounter Results * (ABNORMAL) Urine culture (06/25/2015 12:10 PM EDT) Urine Culture 10,000-49,000 cfu/ml Escherichia coli(A) [facility] Organism Escherichia coli(A) [facility] Urine specimen obtained by clean catch procedure (specimen) 06/25/2015 12:10 PM EDT 06/25/2015 2:19 PM EDT Narrative Resulting Agency Comment Spec In Lab Organism Antibiotic Method Susceptibility Escherichia coli Amikacin MICROSCAN METHOD Sensitive Escherichia coli Ampicillin MICROSCAN METHOD Sensitive Escherichia coli Ampicillin + Sulbactam MICROSCAN METH OD Sensitive Escherichia coli Aztreonam MICROSCAN METHOD Sensitive Escherichia coli Cefazolin MICROSCAN METHOD Sensitive Escherichia coli Cefepime MICROSCAN METHOD Sensitive Escherichia coli Ceftazidime MICROSCAN METHOD Sensitive Escherichia coli Ceftriaxone MICROSCAN METHOD Sensitive Escherichia coli Cefuroxime MICROSCAN METHOD Sensitive Escherichia coli Ciprofloxacin MICROSCAN METHOD Sensitive Escherichia coli Gentamicin MICROSCAN METHOD Sensitive Escherichia coli Levofloxacin MICROSCAN METHOD Sensitive Escherichia coli Meropenem MICROSCAN METHOD Sensitive Escherichia coli Nitrofurantoin MICROSCAN METHOD Sensitive Escherichia coli Piperacillin/Tazobactam MICROSCAN MET HOD Sensitive Escherichia coli Tetracycline MICROSCAN METHOD Sensitive Escherichia coli Tobramycin MICROSCAN METHOD Sensitive Escherichia coli Trimethoprim/Sulfa MICROSCAN METHOD Sensitive Walter Rae MD MICROBIOLOGY - GENER AL ORDERABLES [facility] [place] [address] * (ABNORMAL) Urinalysis with reflex Culture (06/25/2015 12:10 PM EDT) Glucose UA Negative Negative mg/dL [facility] Protein UA Negative Negative mg/dL [facility] Bilirubin UA Negative Negative mg/dL [facility] Comment: Clinical correlation required for positive Urine Bilirubin results as false positive may occur with some drugs and drug related products. If a false positive is suspected a serum total bilirubin should be considered if clinically indicated. Urobilinogen UA Normal Normal mg/dL M [facility] pH UA 5.0 5.0 - 8.0 [facility] Blood UA Negative Negative mg/dL [facility] Ketones UA 5(A) Negative mg/dL [facility] Nitrite UA Negative Negative [facility] Leukocytes UA Small(A) Negative mcL [facility] Appearance UA Clear Clear [facility] Spec [place] UA 1.025 1.002 - 1.030 [facility] Color UA Yellow Yellow [facility] RBC UA 2 0 - 3 /HPF [facility] WBC UA 16(H) 0 - 3 /HPF [facility] Hyaline Cast UA 4(H) 0 - 2 /LPF [facility] Culture Reflexed Yes [facility] Urine specimen obtained by clean catch procedure (specimen) 06/25/2015 12:10 PM EDT 06/25/2015 12:40 PM EDT Narrative Resulting Agency Comment Spec In Lab Walter Rae MD URINE ORDERABLES Performing Organization Address City/[facility]/ZIP Co de Phone Number [facility] [place] [address] * Antibody screen (06/25/2015 10:50 AM EDT) Ab Screen Interp Negative [facility] Expires at [id number] on: 08/09/2015 [facility] Comment:Corrected from 07/22 12:00 [Unknown] on 07/15/15 03:26 by Rehana Kennedy I.. Blood specimen (specimen) 06/25/2015 10:50 AM EDT 06/25/2015 11:06 AM EDT Narrative Resulting Agency Comment Spec In Lab Walter Rae MD BLOOD BANK LAB ORDER ADRIA Performing Organization Address City/[facility]/ZIP Co de Phone Number [facility] [place] [address] * ABO/Rh Typing (06/25/2015 10:50 AM EDT) ABORH Type A Neg [facility] Blood specimen (specimen) 06/25/2015 10:50 AM EDT 06/25/2015 11:06 AM EDT Narrative Resulting Agency Comment Spec In Lab Walter Rae MD BLOOD BANK LAB ORDER ADRIA Performing Organization Address City/[facility]/ZIP Co de Phone Number [facility] [place] [address] * Differential, Automated (06/25/2015 10:50 AM EDT) Neutrophils % 59.7 % [facility] Neutr Abs (ANC) 3.14 1.50 - 6.30 x10(3)/[facility] Lymphocytes % 29.7 % [facility] Lymphocytes Abs 1.6 1.0 - 3.6 x10(3)/[facility] Monocytes % 8.7 % [facility] Monocyte Abs 0.5 0.2 - 1.0 x10(3)/[facility] Eosinophils % 1.3 % [facility] Eosinophils Abs 0.1 0.0 - 0.5 x10(3)/[facility] Basophils % 0.4 % [facility] Basophils Abs 0.0 0.0 - 0.2 x10(3)/[facility] Immature Gran % 0.20 % [facility] Comment: Immature granulocytes(IG's)percentage and absolute count will include metamyelocytes, myelocytes, and promyelocytes. Blood smears from CBCs yielding IG's will be scanned manually for concordance. If this scan disagrees with the automated IG or if promyelocytes are noted, a manual differential will be performed. Geovanna Gran Abs 0.01 0.00 - 0.05 x10(3)/[facility] Blood specimen (specimen) 06/25/2015 10:50 AM EDT 06/25/2015 11:13 AM EDT Narrative Resulting Agency Comment Spec In Lab Walter Rae MD HEMATOLOGY ORDERABLE S Performing Organization Address City/[facility]/ZIP Co de Phone Number [facility] [place] [address] * (ABNORMAL) Hemogram (06/25/2015 10:50 AM EDT) WBC 5.3 4.0 - 10.0 x10(3)/[facility] RBC 4.73 4.63 - 6.08 x10(6)/[facility] Hemoglobin 15.2 13.7 - 17.5 gm/dL [facility] Hematocrit 45.7 40.0 - 51.0 % [facility] MCV 96.6(H) 79.0 - 92.0 fL [facility] MCH 32.1 25.6 - 32.2 pg [facility] MCHC 33.3 32.0 - 36.5 gm/dL [facility] Platelets 258 145 - 370 x10(3)/[facility] RDWSD 43.6 35.0 - 46.0 [facility] RDWCV 12.5 10.9 - 14.4 % [facility] MPV 10.4 9.0 - 12.0 fL [facility] Blood specimen (specimen) 06/25/2015 10:50 AM EDT 06/25/2015 11:13 AM EDT Narrative Resulting Agency Comment Spec In Lab Walter Rae MD HEMATOLOGY ORDERABLE S [facility] [place] [address] * Prothrombin Time (06/25/2015 10:50 AM EDT) Pathologist [facility] PT 12.8 12.0 - 15.0 sec [facility] Comment: An INR <2.0 indicates [...] clinical circumstances. INR 0.9 0.9 - 1.1 [facility] Blood specimen (specimen) 06/25/2015 10:50 AM EDT 06/25/2015 11:13 AM EDT Narrative Resulting Agency Comment Spec In Lab Walter Rae MD HEMATOLOGY ORDERABLE S [facility] [place] [address] * Basic Metabolic Panel (non-fasting) (06/25/2015 10:50 AM EDT) Glucose Lvl 91 65 - 199 mg/dL [facility] Comment:Diabetes: >=200 mg/d L plus symptoms BUN 20 10 - 20 mg/dL [facility] Creatinine 1.19 0.80 - 1.50 mg/dL [facility] Comment: Please note that the pediatric reference intervals supplied above were not validated at [facility] [place] [place]. Results from pediatric patients should be interpreted in conjunction to the patient's age, height and muscle mass. Sodium 139 135 - 145 mmol/L [facility] Potassium 4.6 3.5 - 5.0 mmol/L [facility] Comment: Please note: ??Patients with WBC >100,000 may have falsely elevated Potassium levels. ??For accurate Potassium quantification in these patients send serum separator tube (gold top) for subsequent determinations. ??Contact the Clinical Chemistry Laboratory if there are any questions. Chloride 101 98 - 107 mmol/L [facility] CO2 27 22 - 31 mmol/L [facility] Anion Gap 11 5 - 15 mmol/L [facility] Calcium 9.2 8.5 - 10.5 mg/dL [facility] Estimated GFR >60 >=60 [facility] [...] the following links into your internet browser. [email or web address] [email or web address] Blood specimen (specimen) 06/25/2015 10:50 AM EDT 06/25/2015 11:13 AM EDT Narrative Resulting Agency Comment Spec In Lab Walter Rae MD [place] [address] documented in this encounter Visit Diagnoses Diagnosis Pain in both lower extremities Primary osteoarthritis of both knees Primary localized osteoarthrosis, lower leg documented in this encounter Care Teams Honey Processor Relationship Specialty Start Date End Date Phoenix Guzmán DO [address] [place] [address] [place] [address] PCP - General General Internal Medicine 02/20/15 documented as of this encounter
--- OUTSIDE RECORDS SUMMARY | 2023-10-23 09:10 | XMS_ITS | Encounter Summary ---
[place] [address] Care Team Providers Care Broomcorn Seeder Name Role Phone Phoenix Guzmán DO Primary Care Provider [phone] Encounter Details Date Type Department Care Team (Latest Contact Info) Description 06/25/2015 10:00 AM EDT Clinical [place] [phone] Primary osteoarthritis of both knees Social History [...] Taken Comments Blood Pressure - - Pulse 105 06/25/2015 10:05 AM EDT Temperature - - Respiratory Rate - - Oxygen Saturation 98% 06/25/2015 10:05 AM EDT Inhaled Oxygen Concentration - - Weight 131.5 kg (290 lb) 06/25/2015 10:05 AM EDT Height 182.9 cm (6' 0.01) 06/25/2015 10:05 AM E DT Body Mass Index 39.32 06/25/2015 10:05 AM EDT documented in this encounter Progress Notes * Cassie Rivas RN - 06/25/2015 10:48 AM EDT PAT questionnaire reviewed with patient and while in Pre Admission testing. Denies any issues with anesthesia in the past. GERD controlled with occasional TUMS use - hasn't used any in 3 months.Has a heart murmur and states that Dr. Koenig suggested a nuclear stress test before surgery. will follow-up on this in [place]. Pre-operative instruction booklet reviewed. Patient verbalizesa good understanding of all information reviewed. PLAN: Testing: Lab and EKG Special medication instructions: Ortho to give instructions about ASA Procedure date: 07/20/15 documented in this encounter Plan of Treatment Upcoming Encounters Date Type Department Care Team (Late st Contact Info) Description 10/31/2023 9:15 AM EDT Office Visit Dermatology at [facility] [address] [place] [address] Dawson Broderick MD [facility] [place] [address] 07/23/2024 9:30 AM EDT Office Visit Dermatology at [facility] [address] [place] [address] Dawson Broderick MD [facility] [place] [address] documented as of this encounter Procedures Procedure Name Priority Date/Time Associated Diagnosis Comments EKG 12-LEAD Routine 06/25/2015 10:35 AM EDT Primary osteoarthritis of both knees documented in this encounter Results * EKG 12 Lead (06/25/2015 10:35 AM EDT) Ventricular rate 91 BPM MUSE SYSTEM Atrial Rate 91 BPM MUSE SYSTEM P-R Interval 178 ms MUSE SYSTEM QRS Duration 96 ms MUSE SYSTEM Q-T Interval 346 ms MUSE SYSTEM QTC Calculated (Bezet) 425 ms MUSE SYSTEM Calculated P Vickery 57 degrees MUSE SYSTEM Calculated R Vickery 66 degrees MUSE SYSTEM Calculated T Vickery 12 degrees MUSE SYSTEM INTERPRETATION Normal sinus rhythm Nonspecific T wave abnormality Borderline EKG When compared with ECG of 08-NOV-1996 04:54, No significant change was found Confirmed by MD MELINDA, PRISCILLA ([id number]) on 06/26/2015 8:31:57 AM MUSE SYSTEM 06/25/2015 10:3 5 AM EDT 06/26/2015 8:31 AM EDT Walter Rae MD ECG ORDERABLES MUSE SYSTEM documented in this encounter Visit Diagnoses Diagnosis Primary osteoarthritis of both knees Primary localized osteoarthrosis, lower leg documented in this encounter Care Teams Broomcorn Seeder Relationship Specialty Start Date End Date Phoenix Guzmán DO [address] [place] [address] [place] [address] PCP - General General Internal Medicine 02/20/15 documented as of this encounter
--- OUTSIDE RECORDS SUMMARY | 2023-10-23 09:10 | XMS_ITS | Encounter Summary ---
[place] [address] Care Team Providers Care Carpenter Helper Hardwood Flooring Name Role Phone Jovani Lucero MD Primary Care Provider [phone] Reason for Visit * Reason Comments [facility] ELZBIETA 11[birth year] Encounter Details Date Type Department Care Team (Late st Contact Info) Description 05/02/2013 2:10 PM EST Office [place] [address] Jerel Quintanilla MD [facility] [place] [address] H/O total hip arthroplasty (Primary Dx); Status post hip replacement Discharge Disposition: Home [...] Sign Reading Time Taken Comments Blood Pressure 120/76 05/02/2013 2:31 PM EST Pulse 109 05/02/2013 2:31 PM EST Temperature - - Respiratory Rate - - Oxygen Saturation - - Inhaled Oxygen Concentration - - Weight 132.1 kg (291 lb 3.2 oz) 05/02/2013 2:31 PM EST Height 182.9 cm (6') 05/02/2013 2:31 PM EST Body Mass Index 39.49 05/02/2013 2:31 PM EST documented in this encounter Progress Notes * Jerel Quintanilla - 05/02/2013 3:29 PM EST Mr. Morin is a 68-year-old gentleman who is now 17 years status post a right total hip replacement and he is doing well. He has no complaints whatsoever. He has unlimited activities. He has been retired for four years and even with recent fall he had no complaints. On his physical exam, he can get up out of a chair without the use of his arms. He has a perfectly normal gait and when seated, I can bring through an excellent range of motion with neither pain or apprehension. His x-rays really did not show any major change, but over the past decade, he probably has a little bit more eccentric polyethelene davis, but there is certainly no worrisome osteolytic area around either the femoral or the acetabular components. Contralateral hip is unchanged. Certainly, I think he has very done well. He is well aware of the fact that we need to follow up patients because of wear products, but he does not seem to have any adverse affect to the current evidence of eccentric polyethylene wear. Admonitions about good foot care and dental prophylaxis once again emphasized. We will see him in two years' time for followup with films or earlier p.r.n. CC: Jovani Lucero M.D. documented in this encounter Plan of Treatment Upcoming Encounters Date Type Department Care Team (Late st Contact Info) Description 10/31/2023 9:15 AM EDT Office Visit Dermatology at [facility] [address] [place] [address] Dawson Broderick MD [facility] [address] [place] [address] 07/23/2024 9:30 AM EDT Office Visit Dermatology at [facility] [address] [place] [address] Dawson Broderick MD [facility] [address] [place] [address] documented as of this encounter Visit Diagnoses Diagnosis H/O total hip arthroplasty- Primary Hip joint replacement by other means Status post hip replacement Hip joint replacement by other means documented in this encounter Care Teams Carpenter Helper Hardwood Flooring Relationship Specialty Start Date End Date Jovani Lucero MD [address] [place] [address] [place] [address] PCP - General 02/23/10 02/19/15 documented as of this encounter
--- OUTSIDE RECORDS SUMMARY | 2023-10-23 09:10 | XMS_ITS | Encounter Summary ---
Author Organization [facility] [place] [address] Care Team Providers Care Graphics Coordinator Name Role Phone Phoenix Guzmán DO Primary Care Provider [phone] Encounter Details Date Type Department Care Team (Late st Contact Info) Description 06/25/2015 8:30 AM EDT [place] [address] Social History Tobacco Use Types Packs/Day Years [...] at [facility] [address] [place] [phone] Dawson Broderick MD [facility] [address] [place] [address] 07/23/2024 9:30 AM EDT Office Visit Dermatology at [facility] [address] [place] [address] Dawson Broderick MD [facility] [address] [place] [address] documented as of this encounter Visit Diagnoses Not on filedocumented in this encounter Care Teams Graphics Coordinator Relationship Specialty Start Date End Date Phoenix Guzmán DO [address] [place] [address] [place] [phone] PCP - General General Internal Medicine 02/20/15 documented as of this encounter
[2023-10-23 19:55] LABS: ALT 31 U/L (16-63); AST 20 U/L (15-37); Albumin 3.9 g/dL (3.4-5.0); Alkaline Phosphatase 60 U/L (46-116); Anion Gap 7.4 mmol/L (3-11); BUN 21 mg/dL (7-18); Bilirubin, Total 0.58 mg/dL (0.2-1.0); CO2 28.6 mmol/L (21.0-32.0); CREATININE 1.3 mg/dL (0.70-1.30); Calcium 8.9 mg/dL (8.5-10.1); Calculated LDL 151 mg/dL (<100); Chloride 103 mmol/L (98-107); Cholesterol 230 mg/dL (<200); Estimated GFR 56.93 (mL/min/1.73m2); Glucose 101 mg/dL (74-106); HDL Cholesterol 57 mg/dL (40-60); Potassium 4.8 mmol/L (3.5-5.1); Sodium 139 mmol/L (136-145); Total Protein 7.8 g/dL (6.4-8.2); Triglyceride 110 mg/dL (<150)
== END 2023-10-23 09:01 | disposition home or self-care (01) ==
LOC: NCHCN 09:00
PROVIDERS: PCP Nurse Practitioner Family; Visit Provider Nurse Practitioner Family
DX: I10 Essential (primary) hypertension (principal); E78.5 Hyperlipidemia, unspecified
CPT/HCPCS: 80053; 80061